=== PATIENT | female | born 1950 | race Two or more races ===

== ENCOUNTER 2016-08-12 23:36 | Inpatient (IN) | payer MEDICARE, BC ==
[~2016-08-12] VITALS: Ht 162.6 cm; Wt 114.6 kg
[~2016-08-12 23:36] MED LIST: /ESOM40CA; /LORA10TA PO; ADVAIR; ADVAIR INH; ALBU17IN INH; AMRI15CA PO; AMRIX OR; ASPI1TAB PO; BUDEPRION; BUPR15TA; BUTRANS TD; CELE20TA PO; CLAR1TAB2 PO; CLARITAN D OR; CLARITIN D; COLA100C2 PO; DARV100T; DARV100T OR; DULO20CA OR; DUONSOL IN; FLEXERIL; FLEXERIL OR; FLEXERIL PO; KLON2TAB; KLON2TAB OR; KLON2TAB PO; LASI20TA PO; LIDO5DIS EX; MAXZ75TA2; MAXZ75TA2 OR; METF1000 PO; NEUR100C PO; NEUR300C; NITR4TASL SL; OXYC15TA66 PO; OXYC30TA4 PO; OXYC5TAB2 PO; PRED50TA PO; PRIL20CA PO; PRO AIR; PRO AIR INH; REST0.05 OU; SALINE NASAL SPRAY; TOPI25TA2; TRAM50TA2; TRILIPIX; TRILIPIX OR; VICO5TAB PO; VITAMIN D50000 UNT; ZANTTAB9 PO; [UNRECOGNIZED DRUG - CODE] PO; [UNRECOGNIZED DRUG - CODE] PO; [UNRECOGNIZED DRUG - OTHER]; [UNRECOGNIZED DRUG - OTHER]; [UNRECOGNIZED DRUG - OTHER] OR; [UNRECOGNIZED DRUG - OTHER] OR; [UNRECOGNIZED DRUG - OTHER] OU; [UNRECOGNIZED DRUG - OTHER] OU; [UNRECOGNIZED DRUG - OTHER] PO
[2016-08-13] MEDS ORDERED: IPRATROPIUM 0.5MG/ALBUTEROL 2.5MG INH SOL UD 3ML (DUONEB)(J7620) As Ordered ONE (00:02)
[2016-08-13 00:19] LABS: ABG BASE EXCESS -0.3 (-2.0-2.0); ABG DEVICE NASAL CANN; ABG HCO3 24.7 MEQ/L (22.0-26.0); ABG PARTIAL PRESSURE CO2 41.4 mmHg (35.0-45.0); ABG PARTIAL PRESSURE O2 76.3 mmHg (75.0-100.0); ABG STANDARD HCO3 24.2 MEQ/L (22.0-26.0); ABG TOTAL CO2 25.9 MEQ/L (23.0-31.0); ABG pH (ARTERIAL) 7.393 UNITS (7.350-7.450)
[2016-08-13 00:23] LABS: BASO # 0.1 K/mm3 (0.0-0.2); BASO % 0.6 % (0.0-1.0); EOS # 0.2 K/mm3 (0.0-0.50); EOS % 2.5 % (0.0-3.0); LARGE UNSTAINED CELL # 0.2 K/mm3 (0.0-0.4); LARGE UNSTAINED CELL % 2.2 % (0.0-4.0); LYMPH # 2.3 K/mm3 (1.5-4.5); LYMPH % 21.4 % (24.0-44.0); MEAN CORPUSCULAR HEMOGLOBIN 27.8 pg (27.0-33.0); MEAN CORPUSCULAR HGB CONC 32.3 g/dl (32.0-36.5); MEAN CORPUSCULAR VOLUME 86.2 fl (80.0-96.0); MONO # 0.5 K/mm3 (0.0-0.8); MONO % 5.2 % (0.0-5.0); NEUTROPHILS # 6.7 K/mm3 (1.8-7.7); NEUTROPHILS % 68.1 % (36.0-66.0); PLATELET COUNT, AUTOMATED 270 k/mm3 (150-450); RED CELL DISTRIBUTION WIDTH 15.1 % (11.5-14.5); WHITE BLOOD COUNT 9.9 K/mm3 (4.0-10.0)
[2016-08-13] MEDS ORDERED: methylPREDNISolone INJ 125 MG/2 ML VIAL (J2930) As Ordered ONE (00:30)
[2016-08-13 00:54] LABS: CALCIUM LEVEL 8.7 MG/DL (8.8-10.2); CREATININE FOR GFR 1.01 MG/DL (0.55-1.02); GLOMERULAR FILTRATION RATE 58.9 (>45); POTASSIUM SERUM 4.7 MEQ/L (3.5-5.1)
--- NOTE | 2016-08-13 01:07 | REP ---
Clinical: Shortness of breath. Comparison: 03/09/2016. Findings: Portable technique and underpenetration accentuate the pulmonary vasculature and interstitium. Chronic interstitial changes are appreciated and superimposed pulmonary vascular congestion with interstitial edema cannot be excluded. Stable cardiomegaly. Trace left basilar atelectasis cannot be excluded. No pneumothorax. No obvious effusion. Skeletal structures intact. Impression: Cardiomegaly and chronic changes. Cannot exclude superimposed pulmonary venous congestion and interstitial edema as well as left lower lobe atelectasis. Signed by Juan Carlos Mcfarland MD 08/13/2016 12:59 A
[2016-08-13] MEDS ORDERED: ACETAMINOPHEN TAB 650MG DOSE (2X325MG) PO PRN (03:00)
[2016-08-13] MEDS ORDERED: ALBUTEROL SULFATE 2.5 MG/0.5 ML INH NEB SOLN NEB PRN (03:15)
[2016-08-13] MEDS ORDERED: GLUCOSE 4 GM CHEW TABLET PO PRN (03:15)
[2016-08-13] MEDS ORDERED: DEXTROSE 50% 50 ML SYRINGE IV PRN (03:15)
[2016-08-13] MEDS ORDERED: GLUCAGON FOR INJ 1 MG VIAL (J1610) SC PRN (03:15)
[2016-08-13] MEDS ORDERED: HYDR-4274 PO (03:23)
[2016-08-13] MEDS ORDERED: BREO1INH3 INH (03:23)
[2016-08-13] MEDS ORDERED: DILA8TAB4 PO (03:23)
[2016-08-13] MEDS ORDERED: CYMB60CA3 PO (03:23)
[2016-08-13] MEDS ORDERED: IPRASOL4 IN (03:23)
[2016-08-13] MEDS ORDERED: LEVO25TA5 PO (03:23)
[2016-08-13] MEDS ORDERED: AMRI15CA10 PO (03:23)
[2016-08-13] MEDS ORDERED: hydrOXYzine 50 MG TAB PO PRN (03:30)
[2016-08-13] MEDS ORDERED: HYDROmorphone (DILAUDID) 4 MG TAB PO PRN (03:30)
--- NOTE | 2016-08-13 03:46 | EDDOCDS ---
Physician Documentation [facility] Name: Bessy Miller Age: 65 yrs Sex: Female : 1950 Arrival Date: 08/12/2016 Time: 23:36 Bed 11 Private MD: NO PRIMARY PHYSICIAN, . Disposition: 08/13 02:37 Critical Care:. pc Disposition: 08/13/16 02:38 Hospitalization ordered by Chante Maldonado for Inpatient Admission. Preliminary diagnosis are Hypoxemia, Chronic obstructive pulmonary disease with (acute) exacerbation. - Bed requested for 4 [place]. - Status is Inpatient Admission. mgs - Condition is Stable. - Problem is new. - Symptoms have improved. HPI: 00:19 This 65 yrs old Other Female presents to ER via Walkin/Carried/Asstd with complaints of pc Breathing Difficulty. 00:20 The history is obtained from the patient, the patient's family/friend. The patient pc presents with shortness of breath, with a prior history of COPD. The symptoms began gradually 10 days ago, and became worse yesterday. The symptoms are continuous, and are steadily getting worse. There were no precipitating events that led to the current complaints. The patient has shortness of breath at rest. At their worst, the symptoms were moderate. In the emergency department, the symptoms are unchanged. The patient's shortness of breath is aggravated by coughing, is alleviated by nothing. The patient's dyspnea was accompanied with cough, non-productive. The patient has experienced similar episodes in the past, chronically. The patient has not recently seen a physician. Historical: - Allergies: NSAIDS; Vladees-Jcp-Sbq Reductase Inhibitors; metals; - Home Meds: 1. albuterol sulfate 2.5 mg /3 mL (0.083 %) Inhl nebu 4 times per day 2. Dilaudid 8 mg Oral tab 2-3 times a day 3. inhaler daily 4. OxyContin 30 mg Oral Tb12 1 tab every 12 hours 5. Proventil Inhl twice a day 6. metformin 1,000 mg Oral tab 1 tab 2 times per day 7. levothyroxine 25 mcg Oral tab 1 tab once daily 8. Cymbalta 60 mg Oral cpDR 1 cap once daily 9. amirx 15 mg daily - PMHx: Asthma; COPD; Diabetes - NIDDM: controlled; Hypothyroidism; total knee with revision; - The history from nurses notes was reviewed: and I agree with what is documented. - Social history: Smoking status: Patient states former smoker of tobacco. Race: White, Ethnicity: Not or Preferred Language: Spanish. - : The pt / caregiver states he / she is not on anticoagulants. Home medication list is obtained from the patient, family members. - Hospitalizations: : No recent hospitalization is reported. - Exposure Risk Screening:: None identified. - Immunization history:: All immunizations up-to-date. - Family history: Not pertinent. - Social history:: the patient is a former smoker, the patient does not drink alcohol. ROS: 00:20 All systems are negative except as listed. The gastrointestinal and genitourinary pc components are also addressed in the HPI. Exam: 00:20 General Appearance: alert, the patient is in mild distress. pc 00:20 EENT: normal eye inspection, ears, nose and throat normal, pharynx normal, mucous membranes moist 00:20 Neck: normal inspection. 00:20 Respiratory: no pleuritic chest pain, speaks in full sentences, the patient is in mild respiratory distress, auscultation reveals wheezes, diffusely, decreased air entry noted throughout RR 26, PO 88% on RA. 00:20 Cardiovascular: normal rhythm, no jugular venous distension appreciated, no murmurs, no gallop, the heart rate is tachycardic, at 105 bpm. 00:20 Abdomen: non-tender, non-distended, no organomegaly. 00:20 Skin: normal color, warm, dry. 00:20 Extremities: non-tender, normal range of motion of all joints. 00:20 Neuro: alert, oriented to person, place and time, cranial nerves normal as tested, no motor deficits, no sensory deficits. 00:20 Psych: normal mood. 02:30 Respiratory: no respiratory distress, auscultation reveals wheezes, diffusely, PO 91% pc on 2L. Vital Signs: 08/12 23:38 BP 185 / 87; Pulse 116; Resp 18 S; Temp 97.3(T); Pulse Ox 90% on R/A; Weight 108.86 kg gr2 / 240 lbs (R); Height 5 ft. 3 in. (160.02 cm) (R); Pain 3/10; 23:45 BP 163 / 75 (auto/); mgs 23:46 Pulse 112 MON; Pulse Ox 88% ; mgs 23:53 BP 163 / 75; Pulse 114; Resp 38; Temp 98.2; Pulse Ox 88% on R/A; cf2 23:59 BP 147 / 77 (auto/); mgs 23:59 Pulse 104 MON; Pulse Ox 87% ; mgs 01 00:14 BP 151 / 77 (auto/); mgs 00:14 Pulse 100 MON; Pulse Ox 93% ; mgs 00:29 BP 122 / 69 (auto/); mgs 00:29 Pulse 100 MON; Pulse Ox 97% ; mgs 01:18 BP 135 / 75 (auto/); mgs 01:18 Pulse 102 MON; Pulse Ox 92% ; mgs 01:29 BP 121 / 67 (auto/); mgs 01:29 Pulse 104 MON; Pulse Ox 90% ; mgs 01:44 BP 123 / 64 (auto/); mgs 01:44 Pulse 102 MON; Pulse Ox 91% ; mgs 01:59 BP 125 / 65 (auto/); mgs 01:59 Pulse 102 MON; Pulse Ox 91% ; mgs 02:14 BP 137 / 63 (auto/); mgs 02:14 Pulse 102 MON; Pulse Ox 92% ; mgs 02:29 BP 132 / 69 (auto/); mgs 02:29 Pulse 100 MON; Pulse Ox 92% ; mgs 02:44 BP 124 / 67 (auto/); mgs 02:44 Pulse 98 MON; Pulse Ox 89% ; mgs 02:58 Pulse 100 MON; Pulse Ox 91% ; mgs 02:59 BP 128 / 73 (auto/); mgs 03:23 BP 130 / 64; Pulse 100; Resp 22; Temp 97.9(O); Pulse Ox 91% on 4 lpm NC; mgs 08/12 23:38 Body Mass Index 42.51 (108.86 kg, 160.02 cm) gr2 MDM: 08/12 23:55 Albuterol-Ipratropium 1 neb Nebulizer every 20 minutes x3 ordered. cf2 23:58 Call Respiratory ordered. pc 23:58 -Blood Culture (Adults Only), peripheral from different site, or from device/port/PICC pc etc. if present ordered. 23:58 Supervisor Microfilm Duplicating Unit/Pulse Ox/q 15 min VS ordered. pc 23:58 IV Saline Lock ordered. pc 23:58 Oxygen at 4L/Min NC or Home dosage ordered. pc 23:58 Rhythm Strip to chart ordered. pc 23:59 -Arterial Blood Gas Ordered. EDMS 23:59 Basic Metabolic Profile Ordered. EDMS 23:59 CBC with Diff Ordered. EDMS 23:59 -Blood Culture Ordered. EDMS 23:59 Chest, 1 View Ordered. EDMS 23:59 Call Respiratory complete. cf2 23:59 ECG WITH READING ER PHYS+CARDIAG ordered. EDMS 01/04 00:17 -Blood Culture (Adults Only), peripheral from different site, or from device/port/PICC ml3 etc. if present complete. 00:18 BLOOD CULTURES Ordered. EDMS 00:20 Differential diagnosis: Chronic Obstructive Pulmonary Disease pneumonia. Plan: labs, pc CXR, EKG, nebs. 00:23 Solu-MEDROL 125 mg IVP once ordered. pc 00:23 -Arterial Blood Gas Reviewed. pc 00:24 Obtain sample by nasopharyngeal swab ordered. pc 00:25 -Influenza A&B Rapid Antigen - Nose Ordered. EDMS 00:34 Test interpretation: EKG. pc 02:01 Basic Metabolic Profile Reviewed. pc 02:01 CBC with Diff Reviewed. pc 02:01 -Influenza A&B Rapid Antigen - Nose Reviewed. pc 02:01 Chest, 1 View Reviewed. pc 02:32 Antibiotic administration: Not indicated, the patient does not have an appreciated pc infiltrate. Data reviewed: old medical records, vital signs, nurses notes, EKG(s), lab test results, all radiology studies and available results. Test interpretation: LAB - all labs as ordered have been reviewed, interpreted and considered in the overall management of the clinical presentation; Arterial blood gas is normal. X-RAY - interpreted by me, 1 view chest chronic changes, ?interstitial edema v fibrosis. The patient has been re-examined and re-evaluated. The patient's symptoms have mildly improved after treatment, but she remains hypoxic off oxygen. 02:37 Physician consultation: Dr. Chante Maldonado was contacted at 02:37, regarding admission, and pc will see patient in ED. Disposition: The historical points, examination findings, and any diagnostic results supporting the provided diagnosis, were discussed with the patient or legal guardian. The need for further work-up and/or treatment in the hospital was explained. 02:55 BASIC METABOLIC PROFILE Ordered. EDMS 02:56 Admission / Observation Status ordered. EDMS 02:56 CONSISTENT CARBOHYDRATES ordered. EDMS 02:59 SPUTUM CULTURE AND GRAM STAIN Ordered. EDMS 02:59 PHYSICAL THERAPY EVAL & TREAT ordered. EDMS 03:03 HEMOGLOBIN A1C Ordered. EDMS 03:05 THYROID STIMULATING HORMONE Ordered. EDMS 03:21 [facility] Payment Agreement was scanned into [employer] and attached to record. 5 03:21 Financial registration complete. jp5 EC:34 Rate is 100 beats/min. Rhythm is regular, Normal Sinus Rhythm. QRS [place] is Normal. NC pc interval is normal. QRS interval is normal. QT interval is normal. No Q waves. T waves are Normal. No ST changes noted. Clinical impression: Normal Sinus Rhythm. Administered Medications: 00:08 Drug: Albuterol-Ipratropium 1 neb [ipratropium-albuterol 0.5 mg-3 mg(2.5 mg base)/3 mL jc3 nebulization soln (1 neb)] Route: Nebulizer; 00:15 Drug: Albuterol-Ipratropium 1 neb [ipratropium-albuterol 0.5 mg-3 mg(2.5 mg base)/3 mL jc3 nebulization soln (1 neb)] Route: Nebulizer; 00:34 Drug: Albuterol-Ipratropium 1 neb [ipratropium-albuterol 0.5 mg-3 mg(2.5 mg base)/3 mL jc3 nebulization soln (1 neb)] Route: Nebulizer; 01:19 Drug: Solu-MEDROL 125 mg [Solu-Medrol 500 mg intravenous solution (125 mg)] Route: IVP; mgs Site: right wrist; Critical Care Time: 02:37 Critical care time: Bedside Care: 25 minutes, Consultation: 10 minutes, Family pc Intervention: 10 minutes. Total time: 45 minutes Signatures: Dispatcher [employer] [facility] Dominguez Patton MD MD pc Lopresti, Mary-Elizabeth, Sewing Supervisor Unit ml3 Genaro Nunez RN RN mgs Denise Solares jp5 Shellie Muñoz RN RN 2 Jewel Alatorre 3 The chart was reviewed and I authenticate all verbal orders and agree with the evaluation and treatment provided.Attachments: 03:21 [facility] Payment Agreement [email or web address] [facility]
--- NOTE | 2016-08-13 03:46 | EDDOCDS ---
Nurse's Notes [facility] Name: Bessy Miller Age: 65 yrs Sex: Female : 1950 Arrival Date: 08/12/2016 Time: 23:36 Bed 11 Private MD: NO PRIMARY PHYSICIAN, . Diagnosis: Hypoxemia;Chronic obstructive pulmonary disease with (acute) exacerbation Presentation: 08/12 23:45 Red Flag criteria, patient assessed and taken directly to a bed. Pt taken directly to 1 11 in Main ED. charge Nurse aware, Shellie Rothman at bedside with pt. 23:49 Presenting complaint: Patient states: "shortness of breath and wheezing getting worse cf2 over the past week". Patient with audible wheezing and tripoding. Adult Sepsis Screening: The patient does not have new or worsening altered mentation. Patient has a respiratory rate of greater than or equal to 22 (1 point). Systolic blood pressure is greater than 100. Patient has a qSOFA score of 1- Negative Sepsis Screen. Suicide/Homicide risk assessment- the patient denies having any suicidal and/or homicidal ideations and does not present with any other emotional, behavioral or mental health complaints. 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 Transition of care: patient was not received from another setting of care. Care prior to arrival: Medications administered prior to arrival: Duoneb every 4 hours. 23:49 Acuity: SAVANNAH Level 2 cf2 23:49 Method Of Arrival: Walkin/Carried/Asstd cf2 Triage Assessment: 23:53 General: Appears distressed, uncomfortable, Behavior is anxious, restless. Pain: Denies cf2 pain. 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 Pt Declines HIV testing. The patient is triaged at the bedside. See Assessment in Nurses Notes section of ED record. Neurological: No deficits noted. EENT: No deficits noted. Cardiovascular: No deficits noted. Respiratory: Onset: The symptoms/episode began/occurred gradually, Airway is patent Respiratory effort is labored, with nasal flaring, pursed lip, Respiratory pattern is tachypnea Breath sounds with wheezes inspiratory expiratory bilaterally. Reports shortness of breath cough that is the patient has moderate shortness of breath. GI: No deficits noted. : No deficits noted. Derm: No deficits noted. Musculoskeletal: No deficits noted. Injury Description: No known injury. Historical: - Allergies: NSAIDS; Vufqgkp-Xhz-Wlm Reductase Inhibitors; metals; - Home Meds: 1. albuterol sulfate 2.5 mg /3 mL (0.083 %) Inhl nebu 4 times per day 2. Dilaudid 8 mg Oral tab 2-3 times a day 3. inhaler daily 4. OxyContin 30 mg Oral Tb12 1 tab every 12 hours 5. Proventil Inhl twice a day 6. metformin 1,000 mg Oral tab 1 tab 2 times per day 7. levothyroxine 25 mcg Oral tab 1 tab once daily 8. Cymbalta 60 mg Oral cpDR 1 cap once daily 9. amirx 15 mg daily - PMHx: Asthma; COPD; Diabetes - NIDDM: controlled; Hypothyroidism; total knee with revision; - The history from nurses notes was reviewed: and I agree with what is documented. - Social history: Smoking status: Patient states former smoker of tobacco. Race: White, Ethnicity: Not or Preferred Language: [place] Konger. - : The pt / caregiver states he / she is not on anticoagulants. Home medication list is obtained from the patient, family members. - Hospitalizations: : No recent hospitalization is reported. - Exposure Risk Screening:: None identified. - Immunization history:: All immunizations up-to-date. - Family history: Not pertinent. - Social history:: the patient is a former smoker, the patient does not drink alcohol. Screenin/04 00:03 Screening information is obtained from the patient. Fall risk: At risk due to prior mgs history of falls. Assistance ADL's: requires no assistance with activities of daily living. Abuse/DV Screen: The patient / caregiver reports he/she is: not in a situation that causes fear, pain or injury. Nutritional screening: No deficits noted. Advance Directives: Currently, there is no health care proxy. There is no active DNR order. home support is adequate. Assessment: 08/12 23:57 Adult Sepsis Screening: The patient does not have new or worsening altered mentation. mgs Patient has a respiratory rate of greater than or equal to 22 (1 point). Systolic blood pressure is greater than 100. Patient has a qSOFA score of 1- Negative Sepsis Screen. General: Appears in no apparent distress, Behavior is appropriate for age, cooperative. Pain: Denies pain. Neurological: Level of Consciousness is awake, alert, Oriented to person, place, time. Cardiovascular: Capillary refill < 3 seconds Heart tones S1 S2 present Pulses are 2+ in right radial artery and left radial artery. Respiratory: Airway is patent Respiratory effort is even, unlabored, Respiratory pattern is regular, symmetrical, Breath sounds are diminished bilaterally. Breath sounds with wheezes expiratory bilaterally. Derm: Skin is pink, warm & dry. 08/13 01:22 General: Appears in no apparent distress, Behavior is appropriate for age, cooperative. mgs Pain: Denies pain. Neurological: Level of Consciousness is awake, alert, Oriented to person, place, time. Cardiovascular: Capillary refill < 3 seconds Heart tones S1 S2 present Pulses are 2+ in right radial artery and left radial artery. Respiratory: Airway is patent Respiratory effort is even, unlabored, Respiratory pattern is regular, symmetrical. 02:16 Adult Sepsis Screening: The patient does not have new or worsening altered mentation. mgs Patient has a respiratory rate of greater than or equal to 22 (1 point). Systolic blood pressure is greater than 100. Patient has a qSOFA score of 1- Negative Sepsis Screen. General: Appears in no apparent distress, Behavior is appropriate for age, cooperative. Pain: Denies pain. Neurological: Level of Consciousness is awake, alert, Oriented to person, place, time. Cardiovascular: Capillary refill < 3 seconds Heart tones S1 S2 present Pulses are 2+ in right radial artery and left radial artery Rhythm is sinus tachycardia No ectopy. Respiratory: Airway is patent Respiratory effort is even, unlabored, Respiratory pattern is regular, symmetrical. Derm: Skin is pink, warm & dry. 02:59 Adult Sepsis Screening: The patient does not have new or worsening altered mentation. mgs Patient has a respiratory rate of greater than or equal to 22 (1 point). Systolic blood pressure is greater than 100. Patient has a qSOFA score of 1- Negative Sepsis Screen. General: Appears in no apparent distress, Behavior is appropriate for age, cooperative. Pain: Denies pain. Neurological: Level of Consciousness is awake, alert, Oriented to person, place, time. Cardiovascular: Capillary refill < 3 seconds. Respiratory: Airway is patent Respiratory effort is even, unlabored, Respiratory pattern is regular, symmetrical. Derm: Skin is pink, warm & dry. 03:23 General: Appears in no apparent distress, Behavior is appropriate for age, cooperative. mgs Pain: Denies pain. Neurological: Level of Consciousness is awake, alert, Oriented to person, place, time. Cardiovascular: Capillary refill < 3 seconds. Respiratory: Airway is patent Respiratory effort is even, unlabored, Respiratory pattern is regular, symmetrical. Derm: Skin is intact, Skin is pink, warm & dry. 03:43 General: Appears in no apparent distress, Behavior is appropriate for age, cooperative. mgs Pain: Denies pain. Neurological: Level of Consciousness is awake, alert, Oriented to person, place, time. Cardiovascular: Capillary refill < 3 seconds. Respiratory: Airway is patent Respiratory effort is even, unlabored, Respiratory pattern is regular, symmetrical. Derm: Skin is pink, warm & dry. Vital Signs: 08/12 23:38 BP 185 / 87; Pulse 116; Resp 18 S; Temp 97.3(T); Pulse Ox 90% on R/A; Weight 108.86 kg gr2 (R); Height 5 ft. 3 in. (160.02 cm) (R); Pain 10/17; 23:45 BP 163 / 75 (auto/); mgs 23:46 Pulse 112 MON; Pulse Ox 88% ; mgs 23:53 BP 163 / 75; Pulse 114; Resp 38; Temp 98.2; Pulse Ox 88% on R/A; cf2 23:59 BP 147 / 77 (auto/); mgs 23:59 Pulse 104 MON; Pulse Ox 87% ; mgs / 00:14 BP 151 / 77 (auto/); mgs 00:14 Pulse 100 MON; Pulse Ox 93% ; mgs 00:29 BP 122 / 69 (auto/); mgs 00:29 Pulse 100 MON; Pulse Ox 97% ; mgs 01:18 BP 135 / 75 (auto/); mgs 01:18 Pulse 102 MON; Pulse Ox 92% ; mgs 01:29 BP 121 / 67 (auto/); mgs 01:29 Pulse 104 MON; Pulse Ox 90% ; mgs 01:44 BP 123 / 64 (auto/); mgs 01:44 Pulse 102 MON; Pulse Ox 91% ; mgs 01:59 BP 125 / 65 (auto/); mgs 01:59 Pulse 102 MON; Pulse Ox 91% ; mgs 02:14 BP 137 / 63 (auto/); mgs 02:14 Pulse 102 MON; Pulse Ox 92% ; mgs 02:29 BP 132 / 69 (auto/); mgs 02:29 Pulse 100 MON; Pulse Ox 92% ; mgs 02:44 BP 124 / 67 (auto/); mgs 02:44 Pulse 98 MON; Pulse Ox 89% ; mgs 02:58 Pulse 100 MON; Pulse Ox 91% ; mgs 02:59 BP 128 / 73 (auto/); mgs 03:23 BP 130 / 64; Pulse 100; Resp 22; Temp 97.9(O); Pulse Ox 91% on 4 lpm NC; mgs 08/12 23:38 Body Mass Index 42.51 (108.86 kg, 160.02 cm) gr2 Vitals: 08/12 23:38 Log In Time: August 12, 2016 at 23:38. RN notified that patient meets Red Flag gr2 criteria. ED Course: 23:37 Patient visited by Susan Maddox. gr2 23:37 NO PRIMARY PHYSICIAN, . is Private Physician. gr2 23:37 Patient moved to Waiting gr2 23:39 Patient visited by Susan Maddox. gr2 23:39 Patient moved to Pre RCE gr2 23:44 Ashley Cobb,RN is Primary Nurse. ml3 23:44 Patient moved to 11 ml3 23:49 Primary Nurse role handed off by Ashley Cobb,SAMMI cf2 23:49 Shellie Muñoz,RN is Primary Nurse. cf2 23:49 Patient visited by Shellie Muñoz,SAMMI. cf2 23:51 Triage Initiated cf2 23:57 Dominguez Patton MD is Attending Physician. pc 08/13 00:01 Patient visited by Dominguez Patton MD. pc 00:15 -Arterial Blood Gas Sent. jc3 00:16 -Blood Culture Sent. mgs 00:16 Basic Metabolic Profile Sent. mgs 00:16 CBC with Diff Sent. mgs 00:20 Missed attempts: 20 gauge X 1 in left antecubital area. mgs 00:20 Missed attempts: 20 gauge in right forearm. mgs 00:21 Patient visited by Genaro Nunez RN. mgs 00:22 EKG done. (by ED staff). Reviewed by Dominguez Patton MD. jp4 00:24 Patient visited by Hammad Hsu. jp4 01:23 Patient visited by Genaro Nunez,SAMMI. mgs 01:24 Chest, 1 View Returned. EDMS 02:17 Patient visited by Genaro Nunez,SAMMI. mgs 02:38 Sophiequan Chante is Hospitalizing Provider. pc 03:00 Patient visited by Genaro Nunez,RN. mgs 03:21 [facility] Payment Agreement was scanned into [employer] and attached to record. jp5 03:22 Inserted saline lock: 20 gauge in right hand. mgs 03:44 The patient / caregiver is instructed regarding the plan of care and ED course. mgs 03:44 No procedures done that require assistance. mgs Administered Medications: 00:08 Drug: Albuterol-Ipratropium 1 neb [ipratropium-albuterol 0.5 mg-3 mg(2.5 mg base)/3 mL jc3 nebulization soln (1 neb)] Route: Nebulizer; 00:15 Drug: Albuterol-Ipratropium 1 neb [ipratropium-albuterol 0.5 mg-3 mg(2.5 mg base)/3 mL jc3 nebulization soln (1 neb)] Route: Nebulizer; 00:34 Drug: Albuterol-Ipratropium 1 neb [ipratropium-albuterol 0.5 mg-3 mg(2.5 mg base)/3 mL jc3 nebulization soln (1 neb)] Route: Nebulizer; 01:19 Drug: Solu-MEDROL 125 mg [Solu-Medrol 500 mg intravenous solution (125 mg)] Route: IVP; mgs Site: right wrist; RT: 00:15 ABG's drawn from right radial artery pressure held for 5 minutes no bleeding noted jc3 pressure bandage applied specimen sent pt. tolerated well. Initial Med Neb Given as ordered Patient tolerated procedure well without adverse effect. O2 via nasal cannula \\T\\ 2L/min. Respiratory: Breath sounds are coarse bilaterally. Breath sounds are diminished bilaterally. Breath sounds with wheezes bilaterally. at expiration. 00:25 Subsequent Med Neb Given as ordered. Respiratory: Breath sounds are coarse Breath jc3 sounds are diminished bilaterally. Breath sounds with wheezes bilaterally. at expiration. 00:34 Subsequent Med Neb Given as ordered. Respiratory: Breath sounds are diminished jc3 bilaterally. Breath sounds with wheezes bilaterally. at expiration. Order Results: Lab Order: -Arterial Blood Gas; SPEC'M 08/13/16 00:07 Test: ABG pH (ARTERIAL); Value: 7.393; Range: 7.350-7.450; Units: UNITS; Status: F Test: ABG PARTIAL PRESSURE CO2; Value: 41.4; Range: 35.0-45.0; Units: mmHg; Status: F Test: ABG PARTIAL PRESSURE O2; Value: 76.3; Range: 75.0-100.0; Units: mmHg; Status: F Test: ABG TOTAL CO2; Value: 25.9; Range: 23.0-31.0; Units: MEQ/L; Status: F Test: ABG HCO3; Value: 24.7; Range: 22.0-26.0; Units: MEQ/L; Status: F Test: ABG BASE EXCESS; Value: -0.3; Range: -2.0-2.0; Status: F Test: ABG STANDARD HCO3; Value: 24.2; Range: 22.0-26.0; Units: MEQ/L; Status: F Test: ABG O2 SATURATION; Value: 95.7; Range: 95.0-99.0; Units: %; Status: F Test: ABG DEVICE; Value: NASAL MAVIS; Status: F Lab Order: Basic Metabolic Profile; SPEC'M 08/13/16 00:13 Test: GLUCOSE, FASTING; Value: 150; Range: 80-110; Abnormal: Above high normal; Units: MG/DL; Status: F Test: BLOOD UREA NITROGEN; Value: 12; Range: 7-18; Units: MG/DL; Status: F Test: CREATININE FOR GFR; Value: 1.01; Range: 0.55-1.02; Units: MG/DL; Status: F Test: GLOMERULAR FILTRATION RATE; Value: 58.9; Range: >45; Status: F Test: SODIUM LEVEL; Value: 138; Range: 136-145; Units: MEQ/L; Status: F Test: POTASSIUM SERUM; Value: 4.7; Range: 3.5-5.1; Units: MEQ/L; Status: F Test: CHLORIDE LEVEL; Value: 102; Range: 98-107; Units: MEQ/L; Status: F Test: CARBON DIOXIDE LEVEL; Value: 27; Range: 21-32; Units: MEQ/L; Status: F Test: ANION GAP; Value: 9; Range: 8-16; Units: MEQ/L; Status: F Test: CALCIUM LEVEL; Value: 8.7; Range: 8.8-10.2; Abnormal: Below low normal; Units: MG/DL; Status: F Test Note: ; Units are mL/min/1.73 m2 Chronic Kidney Disease Staging per NKF: Stage I & II GFR >=60 Normal to Mildly Decreased Stage III GFR 30-59 Moderately Decreased Stage IV GFR 15-29 Severely Decreased Stage V GFR <15 Very Little GFR Left ESRD GFR <15 on WAGE ADJUSTER Lab Order: CBC with Diff; SPEC'M 08/13/16 00:13 Test: WHITE BLOOD COUNT; Value: 9.9; Range: 4.0-10.0; Units: K/mm3; Status: F Test: RED BLOOD COUNT; Value: 4.46; Range: 4.00-5.40; Units: M/mm3; Status: F Test: HEMOGLOBIN; Value: 12.4; Range: 12.0-16.0; Units: g/dl; Status: F Test: HEMATOCRIT; Value: 38.4; Range: 36.0-47.0; Units: %; Status: F Test: MEAN CORPUSCULAR VOLUME; Value: 86.2; Range: 80.0-96.0; Units: fl; Status: F Test: MEAN CORPUSCULAR HEMOGLOBIN; Value: 27.8; Range: 27.0-33.0; Units: pg; Status: F Test: MEAN CORPUSCULAR HGB CONC; Value: 32.3; Range: 32.0-36.5; Units: g/dl; Status: F Test: RED CELL DISTRIBUTION WIDTH; Value: 15.1; Range: 11.5-14.5; Abnormal: Above high normal; Units: %; Status: F Test: PLATELET COUNT, AUTOMATED; Value: 270; Range: 150-450; Units: k/mm3; Status: F Test: NEUTROPHILS %; Value: 68.1; Range: 36.0-66.0; Abnormal: Above high normal; Units: %; Status: F Test: LYMPH %; Value: 21.4; Range: 24.0-44.0; Abnormal: Below low normal; Units: %; Status: F Test: MONO %; Value: 5.2; Range: 0.0-5.0; Abnormal: Above high normal; Units: %; Status: F Test: EOS %; Value: 2.5; Range: 0.0-3.0; Units: %; Status: F Test: BASO %; Value: 0.6; Range: 0.0-1.0; Units: %; Status: F Test: LARGE UNSTAINED CELL %; Value: 2.2; Range: 0.0-4.0; Units: %; Status: F Test: NEUTROPHILS #; Value: 6.7; Range: 1.8-7.7; Units: K/mm3; Status: F Test: LYMPH #; Value: 2.3; Range: 1.5-4.5; Units: K/mm3; Status: F Test: MONO #; Value: 0.5; Range: 0.0-0.8; Units: K/mm3; Status: F Test: EOS #; Value: 0.2; Range: 0.0-0.50; Units: K/mm3; Status: F Test: BASO #; Value: 0.1; Range: 0.0-0.2; Units: K/mm3; Status: F Test: LARGE UNSTAINED CELL #; Value: 0.2; Range: 0.0-0.4; Units: K/mm3; Status: F Lab Order: -Influenza A&B Rapid Antigen - Nose; SPEC'M 08/13/16 00:47 Test: INFLUENZA A RAPID SCR by ICA; Value: INFLUENZA A RESULTS NEGATIVE; Status: F Test: INFLUENZA A RAPID SCR by ICA; Value: Comments:; Status: F Test: INFLUENZA B RAPID SCR by ICA; Value: INFLUENZA B RESULTS NEGATIVE; Status: F Test Note: ; The Influenza test is a direct rapid immunoassay for the qualitative detection of Influenza viral antigen. Cell culture (Viral Culture) testing should be considered to confirm NEGATIVE results and to assist in detecting other viruses that can provide similar clinical symptoms. Please contact the lab within 24 hours ([phone]) if confirmatory testing is desired. Radiology Order: Chest, 1 View Test: Chest, 1 View REASON FOR EXAMINATION: Shortness of Breath; Clinical: Shortness of breath.; ; Comparison: 03/09/2016.; ; Findings:; Portable technique and underpenetration accentuate the pulmonary vasculature and; interstitium. Chronic interstitial changes are appreciated and superimposed; pulmonary vascular congestion with interstitial edema cannot be excluded. Stable; cardiomegaly. Trace left basilar atelectasis cannot be excluded. No; pneumothorax. No obvious effusion. Skeletal structures intact.; ; Impression:; Cardiomegaly and chronic changes.; Cannot exclude superimposed pulmonary venous congestion and interstitial edema as; well as left lower lobe atelectasis.; ; ; Signed by; Juan Carlos Mcfarland MD 08/13/2016 12:59 A; Outcome: 02:38 Decision to Hospitalize by Provider. pc 03:44 Discharge Assessment: Patient awake, alert and oriented x 3. No cognitive and/or mgs functional deficits noted. Patient verbalized understanding of disposition instructions. patient administered narcotics - no. The following High Risk Discharge criteria are identified: None. Admitted to Med/Surg accompanied by tech, family with patient, via stretcher, with oxygen, with chart. Condition: stable. Property :Personal belongings accompany Pt. 03:45 No special radiology studies were completed. mgs 03:46 Patient left the ED. mgs Signatures: Dispatcher [employer] EDMS Dominguez Patton MD MD Helio Mistry, School Psychometrist Unit ml3 Anne Jensen,RN RN lf1 Jewel Alatorre jc3 Susan Maddox gr2 Hammad Hsu jp4 Genaro Nunez RN RN mgs Denise Solares jp5 Shellie Muñoz,RN RN cf2 Corrections: (The following items were deleted from the chart) 01:23 08/12 23:57 Cardiovascular: Capillary refill is > 3 seconds Heart tones S1 S3 present mgs Pulses are 2+ in right radial artery and left radial artery mgs MTDD
[2016-08-13 04:00] VITALS: BP 110/80
[2016-08-13] MEDS ORDERED: LevoFLOXacin 750 MG in APPROPRIATE DILUENT 1 EA IV SCH (04:00)
[2016-08-13] MEDS: HEPARIN SOD (PORCINE) 5000 UNITS/ML VIAL SC SCH ×3 (05:42→21:45)
[2016-08-13] MEDS: LEVOTHYROXINE 0.025 MG TAB (25 MCG) PO SCH (05:42)
[2016-08-13 06:00] VITALS: BP 110/64
[2016-08-13 06:39] LABS: CALCIUM LEVEL 8.9 MG/DL (8.8-10.2); CREATININE FOR GFR 1.1 MG/DL (0.55-1.02); GLOMERULAR FILTRATION RATE 53.4 (>45); POTASSIUM SERUM 4.5 MEQ/L (3.5-5.1)
--- NOTE | 2016-08-13 07:00 | HPE ---
DATE OF ADMISSION: 08/13/2016 PRIMARY CARE PHYSICIAN: Dr. Sung CHIEF COMPLAINT: Dyspnea exacerbation. HISTORY OF PRESENT ILLNESS: Ms. Miller is a 65-year-old female with multiple past medical history who presented due to experiencing shortness of breath since 07/28/2016. The patient expressed that she has been seen by Dr. Sung due to congestion and patient has been experiencing environmental allergy. The patient denies chills or night sweats; however, patient expressed that she had one episode of fever of 100.4, which was yesterday. The patient denies lightheadedness or dizziness. 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 Therefore, they stopped the Lasix. The patient expressed that she has been having cough which is dry, however, for the past week the cough became more greenish or yellowish color. The patient expressed shortness of breath became increased and her family forced her to come to the emergency room (ER). The patient expressed that she can only ambulate about 17 steps at this moment due to shortness of breath. The patient has pulse oximeter at home. She said her pulse oximeter shows that her oxygen saturation was about 89-90%; however, previously it was 94-95%. ALLERGIES: - NSAIDS - NICKEL - STATINS HOME MEDICATIONS: - Ventolin HFA 2 puffs inhaler as needed shortness of breath - ipratropium bromide 1 solution inhaler four times a day as needed shortness of breath - Klonopin 2 mg by mouth at bedtime - Atarax 30 mg by mouth at bedtime - Cymbalta 60 mg by mouth daily - Breo Ellipta 1 puff inhaler daily - Dilaudid 8 mg by mouth three times a day as needed for pain - hydroxyzine 50 mg by mouth as needed anxiety - Synthroid 25 mcg by mouth daily - metformin 1000 mg by mouth twice a day - oxycodone 30 mg by mouth every 12 hours SOCIAL HISTORY: The patient expressed that she had stopped smoking about five years ago. However, before that, the patient was smoking at age 15 and she smoked about a pack a day. The patient expressed that in 2004 the patient quit drinking alcohol, however, before that the patient was drinking alcohol occasionally. The patient denies illicit drug use at this moment, however, the patient expressed that when she was in her 20s she had experimented with cocaine , LSD and marijuana. The patient lived with her and two children, two daughters. The patient has two cats. FAMILY HISTORY: Patient has two brothers, one of the brothers has congestive heart failure, diabetes and heart problems. The other brother has lung cancer due to smoking. The patient's father due to myocardial infarction (AL). The patient's mother due to atrophy of the brain secondary to alcoholism. REVIEW OF SYSTEMS: GENERAL: Patient denies chills or night sweats, however, patient expressed that she has been having fever. The patient denies weight gain or weight loss. HEENT: Patient denies acute vision or hearing changes. The patient has problems with chewing food, however, patient expressed that she has episode of sinus infection. NECK: The patient denies lumps, bumps or decreased range of motion of her neck. HEART: Patient denies palpitations or skipping heart beat or chest pain. LUNGS: Patient expressed that she has been experiencing shortness of breath and coughing with yellowish or greenish sputum production. The patient also experienced wheezing on inhale and exhale. ABDOMEN: Patient denies abdominal pain, nausea, vomiting, diarrhea, constipation, melena, hematochezia or hematemesis. EXTREMITIES: Patient expressed that she has been experiencing left knee pain; however, this is a chronic issue and she has been having problems since 2004. However, the pain is controlled. The patient denies lower extremity edema. NEUROLOGIC: Patient denies history of transient ischemic attack (TIA), CVA or seizure type activities. PHYSICAL EXAMINATION: VITAL SIGNS: Blood pressure 185/87, pulse 116, respiratory rate 18, temperature 97.3, pulse oximetry 90% on room air. Weight 108.86 kg, height 160.02 cm, body mass index (BMI) 42.51. GENERAL APPEARANCE: The patient was lying in bed in no acute distress. The patient was awake, alert, and oriented to time, place and person. HEENT: Normocephalic, atraumatic. Pupils are equal. Oral mucosa is moist. NECK: Soft, supple. Jugular venous distention (JVD) cannot be appreciated due to morbid obesity. LUNGS: Patient has clear breath sounds bilaterally, good air movement. HEART: Tachycardia. Normal S1, S2. ABDOMEN: Morbidly obese, soft, nontender, positive bowel sounds in all quadrants. EXTREMITIES: No lower extremity edema, +2 pulses in both lower extremitiies. Patient has decreased range of motion in the left lower extremity compared to the right due to knee pain. The patient has normal sensation in both upper and lower extremities. NEUROLOGIC: Cranial nerves II-XII were intact. No focal deficits. LABORATORY DATA: White blood cells 9.9, red blood cells 4.46, hemoglobin 12.4, hematocrit 38.4, MCV 86.2, MCH 27.8, MCHC 32.3, RDW 15.1, platelet count 270, neutrophil percentage 68.1, lymphocyte percentage 24.4, monocyte percentage 5.2, eosinophil percentage 2.5, basophil percentage 0.6, leukocyte percentage 2.2, bicarbonate 24.2. ABG with pH 7.393, pCO2 41.4, pO2 76.3, HCO3 24.7, total CO2 25.9, oxygen saturation 95.7, base excess -0.3, oxygen delivery device nasal cannula. Sodium 138, potassium 4.7, chloride 102, carbon dioxide 27, anion gap 9, BUN 12, creatinine 1.01, glomerular filtration rate 58.9, fasting glucose 150 , calcium 8.7. Blood culture is pending. Influenza is pending. Chest x-ray shows cardiomegaly and chronic changes, cannot exclude superimposed pulmonary versus congestive and interstitial edema as well as left lower lobe atelectasis. ASSESSMENT AND PLAN: 1. Dyspnea exacerbation. This could be multifactorial, possibly chronic obstructive pulmonary disease exacerbation versus pulmonary infection versus allergy exacerbation. Therefore, we have started the patient on breathing treatment as well as Solu-Medrol due to possibility of chronic obstructive pulmonary disease exacerbation. Also due to the possibility of infection we have started the patient on Levaquin 750 mg every 24 hours. Although patient's white blood cells are normal, also we have ordered blood culture as well as sputum culture and gram stain and the results are pending at this time. Also due to the possibility of allergy, we have ordered Zyrtec 10 mg by mouth daily. 2. Chronic obstructive pulmonary disease. The patient is on breathing treatment as well as Solu-Medrol. 3. Asthma. At this time, the patient is stable. The patient is on breathing treatments. 4. Diabetes. At home, patient is on metformin 1000 mg by mouth twice a day. However, we have stopped this medication and we have started the patient on sliding scale. Also we will continue patient on consistent carbohydrate diet. 5. Hypothyroidism. Will continue patient on Synthroid. 6. Sjogren syndrome. This is a chronic issue. At this time, the patient is stable. 7. Left knee pain. This is a chronic issue and patient has been experiencing this pain for a long time. The patient has been followed with orthopedics. At this time, the patient is following with pain management who recommended the patient to continue on oxycodone 30 mg by mouth every 12 hours as well as Dilaudid 8 mg by mouth three times a day as needed pain. 8. Restless leg syndrome. Patient is on clonazepam 2 mg by mouth at bedtime. At this time, the patient is stable. 9. Deep vein thrombosis prophylaxis. The patient is on heparin 5000 units subcutaneous every 8 hours. 10. Anxiety. The patient is on hydroxyzine 50 mg by mouth daily as needed anxiety. My preceptor for this patient encounter was Dr. Maldonado. The preceptor was physically present in the building during the encounter and was fully available. As needed, all aspects of the patient interview, examination, medical decision making process, and medical care plan development were reviewed and approved by the preceptor. The preceptor is aware and concurs with the plan as stated in the body of this note and will attest to such by his/her cosignature. My preceptor for this patient encounter was Dr. Maldonado. The preceptor was physically present in the building during the encounter and was fully available. As needed, all aspects of the patient interview, examination, medical decision making process, and medical care plan development were reviewed and approved by the preceptor. The preceptor is aware and concurs with the plan as stated in the body of this note and will attest to such by his/her cosignature. ELOISA
[2016-08-13] MEDS: HumaLOG INSULIN (NovoLOG) PER UNIT SC SCH ×3 (08:39→17:20)
[2016-08-13] MEDS: DULoxetine 30 MG CAP (CYMBALTA) PO SCH (08:40)
[2016-08-13] MEDS: oxyCODONE 15 MG CR TAB PO SCH ×2 (08:40→21:40)
[2016-08-13] MEDS: CETIRIZINE (ZyrTEC) 10 MG TAB PO SCH (08:40)
[2016-08-13] MEDS: predniSONE 20 MG TAB PO SCH (10:20)
[2016-08-13 11:24] LABS: MEAN CORPUSCULAR HEMOGLOBIN 27.7 pg (27.0-33.0); MEAN CORPUSCULAR VOLUME 86.7 fl (80.0-96.0); RED CELL DISTRIBUTION WIDTH 15.3 % (11.5-14.5); WHITE BLOOD COUNT 11.6 K/mm3 (4.0-10.0)
--- NOTE | 2016-08-13 11:40 | IPN ---
DATE OF SERVICE: 08/13/2016 The time the patient was seen was at 9:30. ATTENDING DOCTOR: Jayne Romero MD The patient was seen and examined at the bedside. No acute event overnight. The patient is breathing better. However, she is still on nasal cannula oxygen. Otherwise, denies any chest pain, trouble breathing, abdominal pains, nausea, vomiting, diarrhea, or constipation. Denies any problem with urination. Denies any other current new complaints. PHYSICAL EXAMINATION: VITAL SIGNS: Temperature 97.4, pulse 96, respiration 20, blood pressure 110/64, oxygen was saturating at 94% on 2 liters of nasal cannula. General: The patient is a morbidly obese female who was alert, awake, oriented times three. Does not appear to be in distress. Resting comfortably in bed with head elevated at 45-degree angle. HEENT: Normocephalic, atraumatic. Extraocular motor intact. Mucosa moist. NECK: Supple. No neck lymphadenopathy. CARDIOVASCULAR: Regular rate and rhythm. S1, S2. No murmurs, rubs, gallops. LUNGS: Clear to auscultation bilaterally. No wheezes, rales, or rhonchi. ABDOMEN: Positive bowel sounds. Soft, nontender, nondistended. No peritoneal signs. No ecchymosis. EXTREMITIES: No edema, clubbing, or cyanosis. SKIN: Warm and dry. NEUROLOGIC: Cranial nerves II-XII intact. CBC was from midnight on 08/13/2016. It shows WBC 9.9, hemoglobin 12.4, hematocrit 38.4, with platelet count of 270. This morning, the patient has a basic metabolic panel with a sodium of 138, potassium 4.5, chloride 102, bicarbonate 26, BUN 13, creatinine 1.1, GFR 63%, and glucose 288, A1c was 7.3. Sputum culture is pending. Blood cultures times two are pending. Influenza is negative. No new imaging. ASSESSMENT AND PLAN: A 65-year-old female with past medical history of not on any oxygen at home, asthma, noninsulin-dependent type 2 diabetes, hypothyroidism , Sjogren syndrome, osteoarthritis with left knee pain, restless legs syndrome, presented with: 1. Shortness of breath secondary to hypoxia and chronic obstructive pulmonary disease (COPD) exacerbation versus pulmonary infection versus allergic exacerbation. The patient was started on Solu-Medrol on admission and placed on Levaquin 750 mg every 24 hours. Today, the patient's lungs sound clear, and the patient denies any shortness of breath. However, she is continued to be on 2 liters of nasal cannula. Will likely discharge the patient tomorrow when the patient is off the oxygen. Otherwise, she stated that she can go today, as well. 2. Chronic obstructive pulmonary disease exacerbation. Continue Levaquin and steroid. The patient's Solu-Medrol has been switched to by mouth prednisone. Will continue to monitor. 3. Asthma. Continue home breathing treatment. 4. Noninsulin-dependent type 2 diabetes. A1c was found to be 7.3. Metformin has been on hold. Will continue on insulin sliding scale and fingersticks and consistent-carbohydrate diet. 5. Hypothyroidism. Continue Synthroid. 6. Sjogren syndrome. Stable. 7. Left knee pain. Continue home medication. She was on oxycodone and Dilaudid at home. Will continue. 8. Restless legs syndrome. Continue on clonazepam. 9. Deep venous thrombosis (DVT) prophylaxis. On subcutaneous heparin 5000 units every 8 hours. DISPOSITION: The patient's lungs sound clear today. Will taper down steroid and switch the patient to by mouth Levaquin. In addition, the patient stated she can go home. However, she was not on oxygen at home. Will continue to monitor the patient and possibly discharge the patient home tomorrow once the patient is able to tolerate room air. In addition, the patient does not want physical therapy. Stated that she would refuse home health if she is being offered home health at home. Stated that she does have a staying at home to help her. The patient has been discussed with attending doctor, Dr. Romero. My preceptor for this patient encounter was Dr. Jayne Romero. The preceptor was physically present in the building during the encounter and was fully available. As needed, all aspects of the patient interview, examination, medical decision making process, and medical care plan development were reviewed and approved by the preceptor. The preceptor is aware and concurs with the plan as stated in the body of this note and will attest to such by his/her cosignature. I have both independently examined this patient as well as reviewed the note. I have discussed in detail with the resident the findings and plan of treatment as documented in the residents note. I will continue to follow the patient and offer further guidance to the patients care as necessary during this hospital stay. Jayne AMIN
[2016-08-13] MEDS ORDERED: methylPREDNISolone INJ 125 MG/2 ML VIAL (J2930) IV SCH (12:00)
[2016-08-13 14:00] VITALS: BP 115/67
--- NOTE | 2016-08-13 19:53 | ECGEPIP ---
Stationary ECG Study [facility] - ED Test Date: 2016-08-13 Pat Name: SARAVANAN DAUGHERTY Department: Room: [place] [address] Gender: F Category Manager: jamaal : 1950 Requested By: Dominguez Rodriguez Order Number: [id number] Reading MD: Brea Ayala Measurements Intervals [place] Rate: 100 P: 49 SD: 142 QRS: 16 QRSD: 87 T: 7 QT: 337 QTc: 436 Interpretive Statements SINUS TACHYCARDIA ABNORMAL RHYTHM ECG LOW LIMB VOLTAGE SIMILAR 03/09/16 Electronically Signed On 08-13-2016 19:53:06 EST by Brea Ayala
[2016-08-13] MEDS ORDERED: clonazePAM 1 MG TAB PO SCH (21:00)
[2016-08-13] MEDS ORDERED: HumaLOG INSULIN (NovoLOG) PER UNIT SC SCH (21:00)
[2016-08-13 22:00] VITALS: BP 142/92
[2016-08-14] MEDS ORDERED: CYCLOBENZAPRINE 10 MG TAB PO ONE
[2016-08-14 06:00] VITALS: BP 128/82
[2016-08-14] MEDS ORDERED: LevoFLOXacin 500 MG TABLET PO SCH (06:00)
[2016-08-14] MEDS: HEPARIN SOD (PORCINE) 5000 UNITS/ML VIAL SC SCH (06:03)
[2016-08-14] MEDS: LEVOTHYROXINE 0.025 MG TAB (25 MCG) PO SCH (06:03)
[2016-08-14 07:05] LABS: MEAN CORPUSCULAR HEMOGLOBIN 27.6 pg (27.0-33.0); MEAN CORPUSCULAR HGB CONC 32.3 g/dl (32.0-36.5); MEAN CORPUSCULAR VOLUME 85.5 fl (80.0-96.0); RED CELL DISTRIBUTION WIDTH 14.4 % (11.5-14.5); WHITE BLOOD COUNT 13.2 K/mm3 (4.0-10.0)
[2016-08-14 07:21] LABS: CALCIUM LEVEL 9.2 MG/DL (8.8-10.2); CREATININE FOR GFR 1.06 MG/DL (0.55-1.02); GLOMERULAR FILTRATION RATE 55.7 (>45); POTASSIUM SERUM 4.1 MEQ/L (3.5-5.1)
[2016-08-14] MEDS: DULoxetine 30 MG CAP (CYMBALTA) PO SCH (08:16)
[2016-08-14] MEDS: CETIRIZINE (ZyrTEC) 10 MG TAB PO SCH (08:16)
[2016-08-14] MEDS: HumaLOG INSULIN (NovoLOG) PER UNIT SC SCH (08:16)
[2016-08-14] MEDS: predniSONE 20 MG TAB PO SCH (08:16)
[2016-08-14] MEDS: oxyCODONE 15 MG CR TAB PO SCH (08:17)
[2016-08-14] MEDS ORDERED: LEVA500T PO (08:20)
[2016-08-14] MEDS ORDERED: PRED5PAK2 PO (09:45)
--- NOTE | 2016-08-14 11:03 | DSES ---
DATE OF ADMISSION: 08/13/2016 DATE OF DISCHARGE: 08/14/2016 ADMISSION DIAGNOSES: 1. Chronic pulmonary obstructive disease (COPD) exacerbation. 2. Chronic asthma. 3. Type 2 diabetes. 4. Hypothyroidism. 5. Sjogren syndrome. 6. Left knee pain. 7. Restless leg syndrome. 8. Anxiety. DISCHARGE DIAGNOSES: 1. Chronic pulmonary obstructive disease (COPD) exacerbation. 2. Chronic asthma. 3. Type 2 diabetes. 4. Hypothyroidism. 5. Sjogren syndrome. 6. Left knee pain. 7. Restless leg syndrome. 8. Anxiety. CONSULTANTS: None. PROCEDURES AND IMAGING: The patient has a portable chest x-ray on the day of admission August 13, 2016 showing cardiomegaly, chronic changes, cannot exclude superimposed pulmonary venous congestion and interstitial edema; as well as left lower lobe atelectasis. HISTORY OF PRESENT ILLNESS (HPI): 65-year-old female with multiple comorbidities presented with shortness of breath since July 28, 2016. She stated that she was seen by Dr. Sung due to congestion and patient has been experiencing environmental allergy. The patient also denies any chills or night sweats. However, the patient expressed that she had one episode of fever at 100.4 which was yesterday. The patient denies any lightheadedness or dizziness. 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 Therefore, they stopped the Lasix recently. She also expressed that she has been having a cough which is dry, however, for the past week the cough has become a more greenish and yellowish color in the sputum and she expressed some shortness of breath which has been increasing and her family forced her to come to the emergency room. The patient expressed that she can only ambulate about 17 steps at the moment due to shortness of breath. She does have a pulse oximeter at home which shows saturation at 89-90%, usually she sats around 94-95%. On the day of admission she was started on intravenous (IV) Levaquin, also Zyrtec, as well as IV steroids and DuoNeb treatments. On the next day the patient's condition improved. Lungs sounds clear. Therefore, she was switched to by mouth steroids and switched to by mouth antibiotic. On August 14, 2016 the patient was stable with no more trouble breathing and would like to go home. She is discharged to home. The patient did say that she does not want any home health. ACTIVITIES: As tolerated. DIET: Carbohydrate consistent diet. DISCHARGE MEDICATIONS: New medications: - Levaquin 500 mg by mouth daily for 7 days - prednisone 5 mg pack, 40 mg then 10 mg three times a day, the 10 mg daily for one day, then 5 mg daily, last day then stop prednisone Continued home medications include: - Ventolin 2 puffs inhalation as directed - albuterol/Duo-Neb treatment every 6 hours as needed - Klonopin 2 mg by mouth at bedtime - cyclobenzaprine 30 mg by mouth nightly - Cymbalta 60 mg by mouth daily - Breo Ellipta 1 puff inhaler daily - Dilaudid 8 mg by mouth three times a day as needed for pain - hydroxyzine 50 mg by mouth as needed - Synthroid 25 mcg by mouth daily - metformin 1000 mg by mouth twice a day - oxycodone 30 mg by mouth every 12 hours FOLLOWUP: The patient should follow with primary care provider within one week. ADDITIONAL INSTRUCTIONS: If the patient develops a temperature greater than 100.4 or any increased breathing or any chest pain not helped with home nebulizer, the patient should go to the emergency room or call private care physician (PCP). The patient has been discussed with attending physician, Dr. Romero. My preceptor for this patient encounter was Dr. Jayne Romero. The preceptor was physically present in the building during the encounter and was fully available as needed. All aspects of the patient interview, examination, medical decision making process, and medical care plan development were reviewed and approved by the preceptor. The preceptor is aware and concurs with the plan as stated in the body of this note and will attest to such by his co-signature. I have both independently examined this patient as well as reviewed the note. I have discussed in detail with the resident the findings and plan of treatment as documented in the residents note. I will continue to follow the patient and offer further guidance to the patients care as necessary during this hospital stay. Jayne AMIN
--- NOTE | 2016-08-15 04:47 | EDDOCDS ---
Physician Documentation [facility] Name: Bessy Miller Age: 65 yrs Sex: Female : 1950 Arrival Date: 08/12/2016 Time: 23:36 Bed 11 Private MD: NO PRIMARY PHYSICIAN, . Disposition: 08/13 02:37 Critical Care:. pc Disposition: 08/13/16 02:38 Hospitalization ordered by Chante Maldonado for Inpatient Admission. Preliminary diagnosis are Hypoxemia, Chronic obstructive pulmonary disease with (acute) exacerbation. - Bed requested for 4 [place]. - Status is Inpatient Admission. mgs - Condition is Stable. - Problem is new. - Symptoms have improved. HPI: 00:19 This 65 yrs old Other Female presents to ER via Walkin/Carried/Asstd with complaints of pc Breathing Difficulty. 00:20 The history is obtained from the patient, the patient's family/friend. The patient pc presents with shortness of breath, with a prior history of COPD. The symptoms began gradually 10 days ago, and became worse yesterday. The symptoms are continuous, and are steadily getting worse. There were no precipitating events that led to the current complaints. The patient has shortness of breath at rest. At their worst, the symptoms were moderate. In the emergency department, the symptoms are unchanged. The patient's shortness of breath is aggravated by coughing, is alleviated by nothing. The patient's dyspnea was accompanied with cough, non-productive. The patient has experienced similar episodes in the past, chronically. The patient has not recently seen a physician. Historical: - Allergies: NSAIDS; Pimindy-Ivs-Ema Reductase Inhibitors; metals; - Home Meds: 1. albuterol sulfate 2.5 mg /3 mL (0.083 %) Inhl nebu 4 times per day 2. Dilaudid 8 mg Oral tab 2-3 times a day 3. inhaler daily 4. OxyContin 30 mg Oral Tb12 1 tab every 12 hours 5. Proventil Inhl twice a day 6. metformin 1,000 mg Oral tab 1 tab 2 times per day 7. levothyroxine 25 mcg Oral tab 1 tab once daily 8. Cymbalta 60 mg Oral cpDR 1 cap once daily 9. amirx 15 mg daily - PMHx: Asthma; COPD; Diabetes - NIDDM: controlled; Hypothyroidism; total knee with revision; - The history from nurses notes was reviewed: and I agree with what is documented. - Social history: Smoking status: Patient states former smoker of tobacco. Race: White, Ethnicity: Not or Preferred Language: Telugu. - : The pt / caregiver states he / she is not on anticoagulants. Home medication list is obtained from the patient, family members. - Hospitalizations: : No recent hospitalization is reported. - Exposure Risk Screening:: None identified. - Immunization history:: All immunizations up-to-date. - Family history: Not pertinent. - Social history:: the patient is a former smoker, the patient does not drink alcohol. ROS: 00:20 All systems are negative except as listed. The gastrointestinal and genitourinary pc components are also addressed in the HPI. Exam: 00:20 General Appearance: alert, the patient is in mild distress. pc 00:20 EENT: normal eye inspection, ears, nose and throat normal, pharynx normal, mucous membranes moist 00:20 Neck: normal inspection. 00:20 Respiratory: no pleuritic chest pain, speaks in full sentences, the patient is in mild respiratory distress, auscultation reveals wheezes, diffusely, decreased air entry noted throughout RR 26, PO 88% on RA. 00:20 Cardiovascular: normal rhythm, no jugular venous distension appreciated, no murmurs, no gallop, the heart rate is tachycardic, at 105 bpm. 00:20 Abdomen: non-tender, non-distended, no organomegaly. 00:20 Skin: normal color, warm, dry. 00:20 Extremities: non-tender, normal range of motion of all joints. 00:20 Neuro: alert, oriented to person, place and time, cranial nerves normal as tested, no motor deficits, no sensory deficits. 00:20 Psych: normal mood. 02:30 Respiratory: no respiratory distress, auscultation reveals wheezes, diffusely, PO 91% pc on 2L. Vital Signs: 08/12 23:38 BP 185 / 87; Pulse 116; Resp 18 S; Temp 97.3(T); Pulse Ox 90% on R/A; Weight 108.86 kg gr2 / 240 lbs (R); Height 5 ft. 3 in. (160.02 cm) (R); Pain 3/10; 23:45 BP 163 / 75 (auto/); mgs 23:46 Pulse 112 MON; Pulse Ox 88% ; mgs 23:53 BP 163 / 75; Pulse 114; Resp 38; Temp 98.2; Pulse Ox 88% on R/A; cf2 23:59 BP 147 / 77 (auto/); mgs 23:59 Pulse 104 MON; Pulse Ox 87% ; mgs 01 00:14 BP 151 / 77 (auto/); mgs 00:14 Pulse 100 MON; Pulse Ox 93% ; mgs 00:29 BP 122 / 69 (auto/); mgs 00:29 Pulse 100 MON; Pulse Ox 97% ; mgs 01:18 BP 135 / 75 (auto/); mgs 01:18 Pulse 102 MON; Pulse Ox 92% ; mgs 01:29 BP 121 / 67 (auto/); mgs 01:29 Pulse 104 MON; Pulse Ox 90% ; mgs 01:44 BP 123 / 64 (auto/); mgs 01:44 Pulse 102 MON; Pulse Ox 91% ; mgs 01:59 BP 125 / 65 (auto/); mgs 01:59 Pulse 102 MON; Pulse Ox 91% ; mgs 02:14 BP 137 / 63 (auto/); mgs 02:14 Pulse 102 MON; Pulse Ox 92% ; mgs 02:29 BP 132 / 69 (auto/); mgs 02:29 Pulse 100 MON; Pulse Ox 92% ; mgs 02:44 BP 124 / 67 (auto/); mgs 02:44 Pulse 98 MON; Pulse Ox 89% ; mgs 02:58 Pulse 100 MON; Pulse Ox 91% ; mgs 02:59 BP 128 / 73 (auto/); mgs 03:23 BP 130 / 64; Pulse 100; Resp 22; Temp 97.9(O); Pulse Ox 91% on 4 lpm NC; mgs 08/12 23:38 Body Mass Index 42.51 (108.86 kg, 160.02 cm) gr2 MDM: 08/12 23:55 Albuterol-Ipratropium 1 neb Nebulizer every 20 minutes x3 ordered. cf2 23:58 Call Respiratory ordered. pc 23:58 -Blood Culture (Adults Only), peripheral from different site, or from device/port/PICC pc etc. if present ordered. 23:58 Roll Filler/Pulse Ox/q 15 min VS ordered. pc 23:58 IV Saline Lock ordered. pc 23:58 Oxygen at 4L/Min NC or Home dosage ordered. pc 23:58 Rhythm Strip to chart ordered. pc 23:59 -Arterial Blood Gas Ordered. EDMS 23:59 Basic Metabolic Profile Ordered. EDMS 23:59 CBC with Diff Ordered. EDMS 23:59 -Blood Culture Ordered. EDMS 23:59 Chest, 1 View Ordered. EDMS 23:59 Call Respiratory complete. cf2 23:59 ECG WITH READING ER PHYS+CARDIAG ordered. EDMS 01/04 00:17 -Blood Culture (Adults Only), peripheral from different site, or from device/port/PICC ml3 etc. if present complete. 00:18 BLOOD CULTURES Ordered. EDMS 00:20 Differential diagnosis: Chronic Obstructive Pulmonary Disease pneumonia. Plan: labs, pc CXR, EKG, nebs. 00:23 Solu-MEDROL 125 mg IVP once ordered. pc 00:23 -Arterial Blood Gas Reviewed. pc 00:24 Obtain sample by nasopharyngeal swab ordered. pc 00:25 -Influenza A&B Rapid Antigen - Nose Ordered. EDMS 00:34 Test interpretation: EKG. pc 02:01 Basic Metabolic Profile Reviewed. pc 02:01 CBC with Diff Reviewed. pc 02:01 -Influenza A&B Rapid Antigen - Nose Reviewed. pc 02:01 Chest, 1 View Reviewed. pc 02:32 Antibiotic administration: Not indicated, the patient does not have an appreciated pc infiltrate. Data reviewed: old medical records, vital signs, nurses notes, EKG(s), lab test results, all radiology studies and available results. Test interpretation: LAB - all labs as ordered have been reviewed, interpreted and considered in the overall management of the clinical presentation; Arterial blood gas is normal. X-RAY - interpreted by me, 1 view chest chronic changes, ?interstitial edema v fibrosis. The patient has been re-examined and re-evaluated. The patient's symptoms have mildly improved after treatment, but she remains hypoxic off oxygen. 02:37 Physician consultation: Dr. Chante Maldonado was contacted at 02:37, regarding admission, and pc will see patient in ED. Disposition: The historical points, examination findings, and any diagnostic results supporting the provided diagnosis, were discussed with the patient or legal guardian. The need for further work-up and/or treatment in the hospital was explained. 02:55 BASIC METABOLIC PROFILE Ordered. EDMS 02:56 Admission / Observation Status ordered. EDMS 02:56 CONSISTENT CARBOHYDRATES ordered. EDMS 02:59 SPUTUM CULTURE AND GRAM STAIN Ordered. EDMS 02:59 PHYSICAL THERAPY EVAL & TREAT ordered. EDMS 03:03 HEMOGLOBIN A1C Ordered. EDMS 03:05 THYROID STIMULATING HORMONE Ordered. EDMS 03:21 [facility] Payment Agreement was scanned into [employer] and attached to record. jp5 03:21 Financial registration complete. jp5 12:08 ECG/EKG was scanned into [employer] and attached to record. EC:34 Rate is 100 beats/min. Rhythm is regular, Normal Sinus Rhythm. QRS [place] is Normal. [place] pc interval is normal. QRS interval is normal. QT interval is normal. No Q waves. T waves are Normal. No ST changes noted. Clinical impression: Normal Sinus Rhythm. Administered Medications: 00:08 Drug: Albuterol-Ipratropium 1 neb [ipratropium-albuterol 0.5 mg-3 mg(2.5 mg base)/3 mL jc3 nebulization soln (1 neb)] Route: Nebulizer; 00:15 Drug: Albuterol-Ipratropium 1 neb [ipratropium-albuterol 0.5 mg-3 mg(2.5 mg base)/3 mL jc3 nebulization soln (1 neb)] Route: Nebulizer; 00:34 Drug: Albuterol-Ipratropium 1 neb [ipratropium-albuterol 0.5 mg-3 mg(2.5 mg base)/3 mL jc3 nebulization soln (1 neb)] Route: Nebulizer; 01:19 Drug: Solu-MEDROL 125 mg [Solu-Medrol 500 mg intravenous solution (125 mg)] Route: IVP; mgs Site: right wrist; Critical Care Time: 02:37 Critical care time: Bedside Care: 25 minutes, Consultation: 10 minutes, Family pc Intervention: 10 minutes. Total time: 45 minutes Signatures: Dispatcher [employer] EDPA Dominguez Patton MD MD pc Joselin Rojas, Reg Reg gb Efde, RenaldoShruthi, Honing Job Setter Unit ml3 Genaro Nunez RN RN mgs Denise Solares jp5 Shellie Muñoz RN RN cf2 Jewel Alatorre jc3 The chart was reviewed and I authenticate all verbal orders and agree with the evaluation and treatment provided.Attachments: 03:21 [facility] [place] Payment Agreement jp5 12:08 ECG/EKG gb Chart Complete MTDD
--- NOTE | 2016-08-15 04:47 | EDDOCDS ---
Physician Documentation [facility] Name: Bessy Miller Age: 65 yrs Sex: Female : 1950 Arrival Date: 08/12/2016 Time: 23:36 Bed 11 Private MD: NO PRIMARY PHYSICIAN, . Disposition: 08/13 02:37 Critical Care:. pc Disposition: 08/13/16 02:38 Hospitalization ordered by Chante Maldonado for Inpatient Admission. Preliminary diagnosis are Hypoxemia, Chronic obstructive pulmonary disease with (acute) exacerbation. - Bed requested for 4 [place]. - Status is Inpatient Admission. mgs - Condition is Stable. - Problem is new. - Symptoms have improved. HPI: 00:19 This 65 yrs old Other Female presents to ER via Walkin/Carried/Asstd with complaints of pc Breathing Difficulty. 00:20 The history is obtained from the patient, the patient's family/friend. The patient pc presents with shortness of breath, with a prior history of COPD. The symptoms began gradually 10 days ago, and became worse yesterday. The symptoms are continuous, and are steadily getting worse. There were no precipitating events that led to the current complaints. The patient has shortness of breath at rest. At their worst, the symptoms were moderate. In the emergency department, the symptoms are unchanged. The patient's shortness of breath is aggravated by coughing, is alleviated by nothing. The patient's dyspnea was accompanied with cough, non-productive. The patient has experienced similar episodes in the past, chronically. The patient has not recently seen a physician. Historical: - Allergies: NSAIDS; Sdhlsuz-Iwr-Hbu Reductase Inhibitors; metals; - Home Meds: 1. albuterol sulfate 2.5 mg /3 mL (0.083 %) Inhl nebu 4 times per day 2. Dilaudid 8 mg Oral tab 2-3 times a day 3. inhaler daily 4. OxyContin 30 mg Oral Tb12 1 tab every 12 hours 5. Proventil Inhl twice a day 6. metformin 1,000 mg Oral tab 1 tab 2 times per day 7. levothyroxine 25 mcg Oral tab 1 tab once daily 8. Cymbalta 60 mg Oral cpDR 1 cap once daily 9. amirx 15 mg daily - PMHx: Asthma; COPD; Diabetes - NIDDM: controlled; Hypothyroidism; total knee with revision; - The history from nurses notes was reviewed: and I agree with what is documented. - Social history: Smoking status: Patient states former smoker of tobacco. Race: White, Ethnicity: Not or Preferred Language: Mohawk. - : The pt / caregiver states he / she is not on anticoagulants. Home medication list is obtained from the patient, family members. - Hospitalizations: : No recent hospitalization is reported. - Exposure Risk Screening:: None identified. - Immunization history:: All immunizations up-to-date. - Family history: Not pertinent. - Social history:: the patient is a former smoker, the patient does not drink alcohol. ROS: 00:20 All systems are negative except as listed. The gastrointestinal and genitourinary pc components are also addressed in the HPI. Exam: 00:20 General Appearance: alert, the patient is in mild distress. pc 00:20 EENT: normal eye inspection, ears, nose and throat normal, pharynx normal, mucous membranes moist 00:20 Neck: normal inspection. 00:20 Respiratory: no pleuritic chest pain, speaks in full sentences, the patient is in mild respiratory distress, auscultation reveals wheezes, diffusely, decreased air entry noted throughout RR 26, PO 88% on RA. 00:20 Cardiovascular: normal rhythm, no jugular venous distension appreciated, no murmurs, no gallop, the heart rate is tachycardic, at 105 bpm. 00:20 Abdomen: non-tender, non-distended, no organomegaly. 00:20 Skin: normal color, warm, dry. 00:20 Extremities: non-tender, normal range of motion of all joints. 00:20 Neuro: alert, oriented to person, place and time, cranial nerves normal as tested, no motor deficits, no sensory deficits. 00:20 Psych: normal mood. 02:30 Respiratory: no respiratory distress, auscultation reveals wheezes, diffusely, PO 91% pc on 2L. Vital Signs: 08/12 23:38 BP 185 / 87; Pulse 116; Resp 18 S; Temp 97.3(T); Pulse Ox 90% on R/A; Weight 108.86 kg gr2 / 240 lbs (R); Height 5 ft. 3 in. (160.02 cm) (R); Pain 3/10; 23:45 BP 163 / 75 (auto/); mgs 23:46 Pulse 112 MON; Pulse Ox 88% ; mgs 23:53 BP 163 / 75; Pulse 114; Resp 38; Temp 98.2; Pulse Ox 88% on R/A; cf2 23:59 BP 147 / 77 (auto/); mgs 23:59 Pulse 104 MON; Pulse Ox 87% ; mgs 01 00:14 BP 151 / 77 (auto/); mgs 00:14 Pulse 100 MON; Pulse Ox 93% ; mgs 00:29 BP 122 / 69 (auto/); mgs 00:29 Pulse 100 MON; Pulse Ox 97% ; mgs 01:18 BP 135 / 75 (auto/); mgs 01:18 Pulse 102 MON; Pulse Ox 92% ; mgs 01:29 BP 121 / 67 (auto/); mgs 01:29 Pulse 104 MON; Pulse Ox 90% ; mgs 01:44 BP 123 / 64 (auto/); mgs 01:44 Pulse 102 MON; Pulse Ox 91% ; mgs 01:59 BP 125 / 65 (auto/); mgs 01:59 Pulse 102 MON; Pulse Ox 91% ; mgs 02:14 BP 137 / 63 (auto/); mgs 02:14 Pulse 102 MON; Pulse Ox 92% ; mgs 02:29 BP 132 / 69 (auto/); mgs 02:29 Pulse 100 MON; Pulse Ox 92% ; mgs 02:44 BP 124 / 67 (auto/); mgs 02:44 Pulse 98 MON; Pulse Ox 89% ; mgs 02:58 Pulse 100 MON; Pulse Ox 91% ; mgs 02:59 BP 128 / 73 (auto/); mgs 03:23 BP 130 / 64; Pulse 100; Resp 22; Temp 97.9(O); Pulse Ox 91% on 4 lpm NC; mgs 08/12 23:38 Body Mass Index 42.51 (108.86 kg, 160.02 cm) gr2 MDM: 08/12 23:55 Albuterol-Ipratropium 1 neb Nebulizer every 20 minutes x3 ordered. cf2 23:58 Call Respiratory ordered. pc 23:58 -Blood Culture (Adults Only), peripheral from different site, or from device/port/PICC pc etc. if present ordered. 23:58 Strategy Specialist/Pulse Ox/q 15 min VS ordered. pc 23:58 IV Saline Lock ordered. pc 23:58 Oxygen at 4L/Min [place] or Home dosage ordered. pc 23:58 Rhythm Strip to chart ordered. pc 23:59 -Arterial Blood Gas Ordered. EDMS 23:59 Basic Metabolic Profile Ordered. EDMS 23:59 CBC with Diff Ordered. EDMS 23:59 -Blood Culture Ordered. EDMS 23:59 Chest, 1 View Ordered. EDMS 23:59 Call Respiratory complete. cf2 23:59 ECG WITH READING ER PHYS+CARDIAG ordered. EDMS 01/04 00:17 -Blood Culture (Adults Only), peripheral from different site, or from device/port/PICC ml3 etc. if present complete. 00:18 BLOOD CULTURES Ordered. EDMS 00:20 Differential diagnosis: Chronic Obstructive Pulmonary Disease pneumonia. Plan: labs, pc CXR, EKG, nebs. 00:23 Solu-MEDROL 125 mg IVP once ordered. pc 00:23 -Arterial Blood Gas Reviewed. pc 00:24 Obtain sample by nasopharyngeal swab ordered. pc 00:25 -Influenza A&B Rapid Antigen - Nose Ordered. EDMS 00:34 Test interpretation: EKG. pc 02:01 Basic Metabolic Profile Reviewed. pc 02:01 CBC with Diff Reviewed. pc 02:01 -Influenza A&B Rapid Antigen - Nose Reviewed. pc 02:01 Chest, 1 View Reviewed. pc 02:32 Antibiotic administration: Not indicated, the patient does not have an appreciated pc infiltrate. Data reviewed: old medical records, vital signs, nurses notes, EKG(s), lab test results, all radiology studies and available results. Test interpretation: LAB - all labs as ordered have been reviewed, interpreted and considered in the overall management of the clinical presentation; Arterial blood gas is normal. X-RAY - interpreted by me, 1 view chest chronic changes, ?interstitial edema v fibrosis. The patient has been re-examined and re-evaluated. The patient's symptoms have mildly improved after treatment, but she remains hypoxic off oxygen. 02:37 Physician consultation: Dr. Chante Maldonado was contacted at 02:37, regarding admission, and pc will see patient in ED. Disposition: The historical points, examination findings, and any diagnostic results supporting the provided diagnosis, were discussed with the patient or legal guardian. The need for further work-up and/or treatment in the hospital was explained. 02:55 BASIC METABOLIC PROFILE Ordered. EDMS 02:56 Admission / Observation Status ordered. EDMS 02:56 CONSISTENT CARBOHYDRATES ordered. EDMS 02:59 SPUTUM CULTURE AND GRAM STAIN Ordered. EDMS 02:59 PHYSICAL THERAPY EVAL & TREAT ordered. EDMS 03:03 HEMOGLOBIN A1C Ordered. EDMS 03:05 THYROID STIMULATING HORMONE Ordered. EDMS 03:21 [facility] Payment Agreement was scanned into [employer] and attached to record. jp5 03:21 Financial registration complete. jp5 12:08 ECG/EKG was scanned into [employer] and attached to record. EC:34 Rate is 100 beats/min. Rhythm is regular, Normal Sinus Rhythm. QRS [place] is Normal. [place] pc interval is normal. QRS interval is normal. QT interval is normal. No Q waves. T waves are Normal. No ST changes noted. Clinical impression: Normal Sinus Rhythm. Administered Medications: 00:08 Drug: Albuterol-Ipratropium 1 neb [ipratropium-albuterol 0.5 mg-3 mg(2.5 mg base)/3 mL jc3 nebulization soln (1 neb)] Route: Nebulizer; 00:15 Drug: Albuterol-Ipratropium 1 neb [ipratropium-albuterol 0.5 mg-3 mg(2.5 mg base)/3 mL jc3 nebulization soln (1 neb)] Route: Nebulizer; 00:34 Drug: Albuterol-Ipratropium 1 neb [ipratropium-albuterol 0.5 mg-3 mg(2.5 mg base)/3 mL jc3 nebulization soln (1 neb)] Route: Nebulizer; 01:19 Drug: Solu-MEDROL 125 mg [Solu-Medrol 500 mg intravenous solution (125 mg)] Route: IVP; mgs Site: right wrist; Critical Care Time: 02:37 Critical care time: Bedside Care: 25 minutes, Consultation: 10 minutes, Family pc Intervention: 10 minutes. Total time: 45 minutes Signatures: Dispatcher [employer] EDAK Dominguez Patton MD MD pc Joselin Rojas, Reg Reg gb Fede, RenaldoShruthi, Market President Unit ml3 Genaro Nunez RN RN mgs Denise Solares jp5 Shellie Muñoz RN RN cf2 Jewel Alatorre jc3 The chart was reviewed and I authenticate all verbal orders and agree with the evaluation and treatment provided.Attachments: 03:21 [place] [place] Agreement jp5 12:08 ECG/EKG gb Chart Complete MTDD
--- NOTE | 2016-08-15 04:47 | EDDOCDS ---
Nurse's Notes [facility] Name: Bessy Miller Age: 65 yrs Sex: Female : 1950 Arrival Date: 08/12/2016 Time: 23:36 Bed 11 Private MD: NO PRIMARY PHYSICIAN, . Diagnosis: Hypoxemia;Chronic obstructive pulmonary disease with (acute) exacerbation Presentation: 08/12 23:45 Red Flag criteria, patient assessed and taken directly to a bed. Pt taken directly to 1 11 in Main ED. charge Nurse aware, Shellie Rothman at bedside with pt. 23:49 Presenting complaint: Patient states: "shortness of breath and wheezing getting worse cf2 over the past week". Patient with audible wheezing and tripoding. Adult Sepsis Screening: The patient does not have new or worsening altered mentation. Patient has a respiratory rate of greater than or equal to 22 (1 point). Systolic blood pressure is greater than 100. Patient has a qSOFA score of 1- Negative Sepsis Screen. Suicide/Homicide risk assessment- the patient denies having any suicidal and/or homicidal ideations and does not present with any other emotional, behavioral or mental health complaints. 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 Transition of care: patient was not received from another setting of care. Care prior to arrival: Medications administered prior to arrival: Duoneb every 4 hours. 23:49 Acuity: SAVANNAH Level 2 cf2 23:49 Method Of Arrival: Walkin/Carried/Asstd cf2 Triage Assessment: 23:53 General: Appears distressed, uncomfortable, Behavior is anxious, restless. Pain: Denies cf2 pain. 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 Pt Declines HIV testing. The patient is triaged at the bedside. See Assessment in Nurses Notes section of ED record. Neurological: No deficits noted. EENT: No deficits noted. Cardiovascular: No deficits noted. Respiratory: Onset: The symptoms/episode began/occurred gradually, Airway is patent Respiratory effort is labored, with nasal flaring, pursed lip, Respiratory pattern is tachypnea Breath sounds with wheezes inspiratory expiratory bilaterally. Reports shortness of breath cough that is the patient has moderate shortness of breath. GI: No deficits noted. : No deficits noted. Derm: No deficits noted. Musculoskeletal: No deficits noted. Injury Description: No known injury. Historical: - Allergies: NSAIDS; Xuyulqk-Jsm-Guh Reductase Inhibitors; metals; - Home Meds: 1. albuterol sulfate 2.5 mg /3 mL (0.083 %) Inhl nebu 4 times per day 2. Dilaudid 8 mg Oral tab 2-3 times a day 3. inhaler daily 4. OxyContin 30 mg Oral Tb12 1 tab every 12 hours 5. Proventil Inhl twice a day 6. metformin 1,000 mg Oral tab 1 tab 2 times per day 7. levothyroxine 25 mcg Oral tab 1 tab once daily 8. Cymbalta 60 mg Oral cpDR 1 cap once daily 9. amirx 15 mg daily - PMHx: Asthma; COPD; Diabetes - NIDDM: controlled; Hypothyroidism; total knee with revision; - The history from nurses notes was reviewed: and I agree with what is documented. - Social history: Smoking status: Patient states former smoker of tobacco. Race: White, Ethnicity: Not or Preferred Language: Albanian. - : The pt / caregiver states he / she is not on anticoagulants. Home medication list is obtained from the patient, family members. - Hospitalizations: : No recent hospitalization is reported. - Exposure Risk Screening:: None identified. - Immunization history:: All immunizations up-to-date. - Family history: Not pertinent. - Social history:: the patient is a former smoker, the patient does not drink alcohol. Screenin/04 00:03 Screening information is obtained from the patient. Fall risk: At risk due to prior mgs history of falls. Assistance ADL's: requires no assistance with activities of daily living. Abuse/DV Screen: The patient / caregiver reports he/she is: not in a situation that causes fear, pain or injury. Nutritional screening: No deficits noted. Advance Directives: Currently, there is no health care proxy. There is no active DNR order. home support is adequate. Assessment: 08/12 23:57 Adult Sepsis Screening: The patient does not have new or worsening altered mentation. mgs Patient has a respiratory rate of greater than or equal to 22 (1 point). Systolic blood pressure is greater than 100. Patient has a qSOFA score of 1- Negative Sepsis Screen. General: Appears in no apparent distress, Behavior is appropriate for age, cooperative. Pain: Denies pain. Neurological: Level of Consciousness is awake, alert, Oriented to person, place, time. Cardiovascular: Capillary refill < 3 seconds Heart tones S1 S2 present Pulses are 2+ in right radial artery and left radial artery. Respiratory: Airway is patent Respiratory effort is even, unlabored, Respiratory pattern is regular, symmetrical, Breath sounds are diminished bilaterally. Breath sounds with wheezes expiratory bilaterally. Derm: Skin is pink, warm & dry. 08/13 01:22 General: Appears in no apparent distress, Behavior is appropriate for age, cooperative. mgs Pain: Denies pain. Neurological: Level of Consciousness is awake, alert, Oriented to person, place, time. Cardiovascular: Capillary refill < 3 seconds Heart tones S1 S2 present Pulses are 2+ in right radial artery and left radial artery. Respiratory: Airway is patent Respiratory effort is even, unlabored, Respiratory pattern is regular, symmetrical. 02:16 Adult Sepsis Screening: The patient does not have new or worsening altered mentation. mgs Patient has a respiratory rate of greater than or equal to 22 (1 point). Systolic blood pressure is greater than 100. Patient has a qSOFA score of 1- Negative Sepsis Screen. General: Appears in no apparent distress, Behavior is appropriate for age, cooperative. Pain: Denies pain. Neurological: Level of Consciousness is awake, alert, Oriented to person, place, time. Cardiovascular: Capillary refill < 3 seconds Heart tones S1 S2 present Pulses are 2+ in right radial artery and left radial artery Rhythm is sinus tachycardia No ectopy. Respiratory: Airway is patent Respiratory effort is even, unlabored, Respiratory pattern is regular, symmetrical. Derm: Skin is pink, warm & dry. 02:59 Adult Sepsis Screening: The patient does not have new or worsening altered mentation. mgs Patient has a respiratory rate of greater than or equal to 22 (1 point). Systolic blood pressure is greater than 100. Patient has a qSOFA score of 1- Negative Sepsis Screen. General: Appears in no apparent distress, Behavior is appropriate for age, cooperative. Pain: Denies pain. Neurological: Level of Consciousness is awake, alert, Oriented to person, place, time. Cardiovascular: Capillary refill < 3 seconds. Respiratory: Airway is patent Respiratory effort is even, unlabored, Respiratory pattern is regular, symmetrical. Derm: Skin is pink, warm & dry. 03:23 General: Appears in no apparent distress, Behavior is appropriate for age, cooperative. mgs Pain: Denies pain. Neurological: Level of Consciousness is awake, alert, Oriented to person, place, time. Cardiovascular: Capillary refill < 3 seconds. Respiratory: Airway is patent Respiratory effort is even, unlabored, Respiratory pattern is regular, symmetrical. Derm: Skin is intact, Skin is pink, warm & dry. 03:43 General: Appears in no apparent distress, Behavior is appropriate for age, cooperative. mgs Pain: Denies pain. Neurological: Level of Consciousness is awake, alert, Oriented to person, place, time. Cardiovascular: Capillary refill < 3 seconds. Respiratory: Airway is patent Respiratory effort is even, unlabored, Respiratory pattern is regular, symmetrical. Derm: Skin is pink, warm & dry. Vital Signs: 08/12 23:38 BP 185 / 87; Pulse 116; Resp 18 S; Temp 97.3(T); Pulse Ox 90% on R/A; Weight 108.86 kg gr2 (R); Height 5 ft. 3 in. (160.02 cm) (R); Pain 10/17; 23:45 BP 163 / 75 (auto/); mgs 23:46 Pulse 112 MON; Pulse Ox 88% ; mgs 23:53 BP 163 / 75; Pulse 114; Resp 38; Temp 98.2; Pulse Ox 88% on R/A; cf2 23:59 BP 147 / 77 (auto/); mgs 23:59 Pulse 104 MON; Pulse Ox 87% ; mgs / 00:14 BP 151 / 77 (auto/); mgs 00:14 Pulse 100 MON; Pulse Ox 93% ; mgs 00:29 BP 122 / 69 (auto/); mgs 00:29 Pulse 100 MON; Pulse Ox 97% ; mgs 01:18 BP 135 / 75 (auto/); mgs 01:18 Pulse 102 MON; Pulse Ox 92% ; mgs 01:29 BP 121 / 67 (auto/); mgs 01:29 Pulse 104 MON; Pulse Ox 90% ; mgs 01:44 BP 123 / 64 (auto/); mgs 01:44 Pulse 102 MON; Pulse Ox 91% ; mgs 01:59 BP 125 / 65 (auto/); mgs 01:59 Pulse 102 MON; Pulse Ox 91% ; mgs 02:14 BP 137 / 63 (auto/); mgs 02:14 Pulse 102 MON; Pulse Ox 92% ; mgs 02:29 BP 132 / 69 (auto/); mgs 02:29 Pulse 100 MON; Pulse Ox 92% ; mgs 02:44 BP 124 / 67 (auto/); mgs 02:44 Pulse 98 MON; Pulse Ox 89% ; mgs 02:58 Pulse 100 MON; Pulse Ox 91% ; mgs 02:59 BP 128 / 73 (auto/); mgs 03:23 BP 130 / 64; Pulse 100; Resp 22; Temp 97.9(O); Pulse Ox 91% on 4 lpm NC; mgs 08/12 23:38 Body Mass Index 42.51 (108.86 kg, 160.02 cm) gr2 Vitals: 08/12 23:38 Log In Time: August 12, 2016 at 23:38. RN notified that patient meets Red Flag gr2 criteria. ED Course: 23:37 Patient visited by Susan Maddox. gr2 23:37 NO PRIMARY PHYSICIAN, . is Private Physician. gr2 23:37 Patient moved to Waiting gr2 23:39 Patient visited by Susan Maddox. gr2 23:39 Patient moved to Pre RCE gr2 23:44 Ashley Cobb,RN is Primary Nurse. ml3 23:44 Patient moved to 11 ml3 23:49 Primary Nurse role handed off by Ashley Cobb,SAMMI cf2 23:49 Shellie Muñoz,RN is Primary Nurse. cf2 23:49 Patient visited by Shellie Muñoz,SAMMI. cf2 23:51 Triage Initiated cf2 23:57 Dominguez Patton MD is Attending Physician. pc 08/13 00:01 Patient visited by Dominguez Patton MD. pc 00:15 -Arterial Blood Gas Sent. jc3 00:16 -Blood Culture Sent. mgs 00:16 Basic Metabolic Profile Sent. mgs 00:16 CBC with Diff Sent. mgs 00:20 Missed attempts: 20 gauge X 1 in left antecubital area. mgs 00:20 Missed attempts: 20 gauge in right forearm. mgs 00:21 Patient visited by Genaro Nunez RN. mgs 00:22 EKG done. (by ED staff). Reviewed by Dominguez Patton MD. jp4 00:24 Patient visited by Hammad Hsu. jp4 01:23 Patient visited by Genaro Nunez,SAMMI. mgs 01:24 Chest, 1 View Returned. EDMS 02:17 Patient visited by Genaro Nunez,SAMMI. mgs 02:38 Joel Chante is Hospitalizing Provider. pc 03:00 Patient visited by Genaro Nunez,RN. mgs 03:21 [facility] Payment Agreement was scanned into [employer] and attached to record. jp5 03:22 Inserted saline lock: 20 gauge in right hand. mgs 03:44 The patient / caregiver is instructed regarding the plan of care and ED course. mgs 03:44 No procedures done that require assistance. mgs 12:08 ECG/EKG was scanned into [employer] and attached to record. gb Administered Medications: 00:08 Drug: Albuterol-Ipratropium 1 neb [ipratropium-albuterol 0.5 mg-3 mg(2.5 mg base)/3 mL jc3 nebulization soln (1 neb)] Route: Nebulizer; 00:15 Drug: Albuterol-Ipratropium 1 neb [ipratropium-albuterol 0.5 mg-3 mg(2.5 mg base)/3 mL jc3 nebulization soln (1 neb)] Route: Nebulizer; 00:34 Drug: Albuterol-Ipratropium 1 neb [ipratropium-albuterol 0.5 mg-3 mg(2.5 mg base)/3 mL jc3 nebulization soln (1 neb)] Route: Nebulizer; 01:19 Drug: Solu-MEDROL 125 mg [Solu-Medrol 500 mg intravenous solution (125 mg)] Route: IVP; mgs Site: right wrist; RT: 00:15 ABG's drawn from right radial artery pressure held for 5 minutes no bleeding noted jc3 pressure bandage applied specimen sent pt. tolerated well. Initial Med Neb Given as ordered Patient tolerated procedure well without adverse effect. O2 via nasal cannula \\T\\ 2L/min. Respiratory: Breath sounds are coarse bilaterally. Breath sounds are diminished bilaterally. Breath sounds with wheezes bilaterally. at expiration. 00:25 Subsequent Med Neb Given as ordered. Respiratory: Breath sounds are coarse Breath jc3 sounds are diminished bilaterally. Breath sounds with wheezes bilaterally. at expiration. 00:34 Subsequent Med Neb Given as ordered. Respiratory: Breath sounds are diminished jc3 bilaterally. Breath sounds with wheezes bilaterally. at expiration. Order Results: Lab Order: -Arterial Blood Gas; SPEC'M 08/13/16 00:07 Test: ABG pH (ARTERIAL); Value: 7.393; Range: 7.350-7.450; Units: UNITS; Status: F Test: ABG PARTIAL PRESSURE CO2; Value: 41.4; Range: 35.0-45.0; Units: mmHg; Status: F Test: ABG PARTIAL PRESSURE O2; Value: 76.3; Range: 75.0-100.0; Units: mmHg; Status: F Test: ABG TOTAL CO2; Value: 25.9; Range: 23.0-31.0; Units: MEQ/L; Status: F Test: ABG HCO3; Value: 24.7; Range: 22.0-26.0; Units: MEQ/L; Status: F Test: ABG BASE EXCESS; Value: -0.3; Range: -2.0-2.0; Status: F Test: ABG STANDARD HCO3; Value: 24.2; Range: 22.0-26.0; Units: MEQ/L; Status: F Test: ABG O2 SATURATION; Value: 95.7; Range: 95.0-99.0; Units: %; Status: F Test: ABG DEVICE; Value: NASAL MAVIS; Status: F Lab Order: Basic Metabolic Profile; SPEC'M 08/13/16 00:13 Test: GLUCOSE, FASTING; Value: 150; Range: 80-110; Abnormal: Above high normal; Units: MG/DL; Status: F Test: BLOOD UREA NITROGEN; Value: 12; Range: 7-18; Units: MG/DL; Status: F Test: CREATININE FOR GFR; Value: 1.01; Range: 0.55-1.02; Units: MG/DL; Status: F Test: GLOMERULAR FILTRATION RATE; Value: 58.9; Range: >45; Status: F Test: SODIUM LEVEL; Value: 138; Range: 136-145; Units: MEQ/L; Status: F Test: POTASSIUM SERUM; Value: 4.7; Range: 3.5-5.1; Units: MEQ/L; Status: F Test: CHLORIDE LEVEL; Value: 102; Range: 98-107; Units: MEQ/L; Status: F Test: CARBON DIOXIDE LEVEL; Value: 27; Range: 21-32; Units: MEQ/L; Status: F Test: ANION GAP; Value: 9; Range: 8-16; Units: MEQ/L; Status: F Test: CALCIUM LEVEL; Value: 8.7; Range: 8.8-10.2; Abnormal: Below low normal; Units: MG/DL; Status: F Test Note: ; Units are mL/min/1.73 m2 Chronic Kidney Disease Staging per NKF: Stage I & II GFR >=60 Normal to Mildly Decreased Stage III GFR 30-59 Moderately Decreased Stage IV GFR 15-29 Severely Decreased Stage V GFR <15 Very Little GFR Left ESRD GFR <15 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 Lab Order: CBC with Diff; SPEC'M 08/13/16 00:13 Test: WHITE BLOOD COUNT; Value: 9.9; Range: 4.0-10.0; Units: K/mm3; Status: F Test: RED BLOOD COUNT; Value: 4.46; Range: 4.00-5.40; Units: M/mm3; Status: F Test: HEMOGLOBIN; Value: 12.4; Range: 12.0-16.0; Units: g/dl; Status: F Test: HEMATOCRIT; Value: 38.4; Range: 36.0-47.0; Units: %; Status: F Test: MEAN CORPUSCULAR VOLUME; Value: 86.2; Range: 80.0-96.0; Units: fl; Status: F Test: MEAN CORPUSCULAR HEMOGLOBIN; Value: 27.8; Range: 27.0-33.0; Units: pg; Status: F Test: MEAN CORPUSCULAR HGB CONC; Value: 32.3; Range: 32.0-36.5; Units: g/dl; Status: F Test: RED CELL DISTRIBUTION WIDTH; Value: 15.1; Range: 11.5-14.5; Abnormal: Above high normal; Units: %; Status: F Test: PLATELET COUNT, AUTOMATED; Value: 270; Range: 150-450; Units: k/mm3; Status: F Test: NEUTROPHILS %; Value: 68.1; Range: 36.0-66.0; Abnormal: Above high normal; Units: %; Status: F Test: LYMPH %; Value: 21.4; Range: 24.0-44.0; Abnormal: Below low normal; Units: %; Status: F Test: MONO %; Value: 5.2; Range: 0.0-5.0; Abnormal: Above high normal; Units: %; Status: F Test: EOS %; Value: 2.5; Range: 0.0-3.0; Units: %; Status: F Test: BASO %; Value: 0.6; Range: 0.0-1.0; Units: %; Status: F Test: LARGE UNSTAINED CELL %; Value: 2.2; Range: 0.0-4.0; Units: %; Status: F Test: NEUTROPHILS #; Value: 6.7; Range: 1.8-7.7; Units: K/mm3; Status: F Test: LYMPH #; Value: 2.3; Range: 1.5-4.5; Units: K/mm3; Status: F Test: MONO #; Value: 0.5; Range: 0.0-0.8; Units: K/mm3; Status: F Test: EOS #; Value: 0.2; Range: 0.0-0.50; Units: K/mm3; Status: F Test: BASO #; Value: 0.1; Range: 0.0-0.2; Units: K/mm3; Status: F Test: LARGE UNSTAINED CELL #; Value: 0.2; Range: 0.0-0.4; Units: K/mm3; Status: F Lab Order: -Influenza A&B Rapid Antigen - Nose; SPEC'M 08/13/16 00:47 Test: INFLUENZA A RAPID SCR by ICA; Value: INFLUENZA A RESULTS NEGATIVE; Status: F Test: INFLUENZA A RAPID SCR by ICA; Value: Comments:; Status: F Test: INFLUENZA B RAPID SCR by ICA; Value: INFLUENZA B RESULTS NEGATIVE; Status: F Test Note: ; The Influenza test is a direct rapid immunoassay for the qualitative detection of Influenza viral antigen. Cell culture (Viral Culture) testing should be considered to confirm NEGATIVE results and to assist in detecting other viruses that can provide similar clinical symptoms. Please contact the lab within 24 hours ([phone]) if confirmatory testing is desired. Radiology Order: Chest, 1 View Test: Chest, 1 View REASON FOR EXAMINATION: Shortness of Breath; Clinical: Shortness of breath.; ; Comparison: 03/09/2016.; ; Findings:; Portable technique and underpenetration accentuate the pulmonary vasculature and; interstitium. Chronic interstitial changes are appreciated and superimposed; pulmonary vascular congestion with interstitial edema cannot be excluded. Stable; cardiomegaly. Trace left basilar atelectasis cannot be excluded. No; pneumothorax. No obvious effusion. Skeletal structures intact.; ; Impression:; Cardiomegaly and chronic changes.; Cannot exclude superimposed pulmonary venous congestion and interstitial edema as; well as left lower lobe atelectasis.; ; ; Signed by; Juan Carlos Mcfarland MD 08/13/2016 12:59 A; Outcome: 02:38 Decision to Hospitalize by Provider. pc 03:44 Discharge Assessment: Patient awake, alert and oriented x 3. No cognitive and/or mgs functional deficits noted. Patient verbalized understanding of disposition instructions. patient administered narcotics - no. The following High Risk Discharge criteria are identified: None. Admitted to Med/Surg accompanied by tech, family with patient, via stretcher, with oxygen, with chart. Condition: stable. Property :Personal belongings accompany Pt. 03:45 No special radiology studies were completed. mgs 03:46 Patient left the ED. mgs Signatures: Dispatcher [employer] EDMS Dominguez Patton MD MD pc Barnhardt, Gloria, Reg Reg Fede RenaldoShruthi, Live In Caregiver Unit ml3 Anne Jensen,RN RN lf1 Jewel Alatorre jc3 Susan Maddox gr2 Hammad Hsu jp4 Genaro Nunez RN RN mgs Denise Solares jp5 Shellie Muñoz,RN RN cf2 Corrections: (The following items were deleted from the chart) 01:23 08/12 23:57 Cardiovascular: Capillary refill is > 3 seconds Heart tones S1 S3 present mgs Pulses are 2+ in right radial artery and left radial artery mgs Chart Complete MTDD
== END 2016-08-14 10:30 | disposition home or self-care (01) | DRG 192 ==
LOC: M ED 23:36 → M ED INP 08-13 02:51 → M MSPAV 08-13 03:52
PROVIDERS: ADMIT Internal Medicine; ATTEND Hospitalist
DX: J44.1 Chronic obstructive pulmonary disease with (acute) exacerbation (principal); E11.9 Type 2 diabetes mellitus without complications; E03.9 Hypothyroidism, unspecified; M35.00 Sjogren syndrome, unspecified; M25.562 Pain in left knee; G25.81 Restless legs syndrome; F41.9 Anxiety disorder, unspecified; Z79.84 Long term (current) use of oral hypoglycemic drugs; Z79.891 Long term (current) use of opiate analgesic; Z79.899 Other long term (current) drug therapy

== ENCOUNTER → 2016-08-25 | Outpatient (REF) | payer OTHER ==
[~2016-08-25] MED LIST changes: +AMRI15CA10 PO; +BREO1INH3 INH; +CYMB60CA3 PO; +DILA8TAB4 PO; +HYDR-4274 PO; +IPRASOL4 IN; +LEVA500T PO; +LEVO25TA5 PO; +PRED5PAK2 PO; -PRIL20CA PO; +PRIL20CA9 PO
[2016-08-25 12:58] LABS: BASO % 0.2 % (0.0-1.0); EOS # 0.1 K/mm3 (0.0-0.50); EOS % 0.7 % (0.0-3.0); LARGE UNSTAINED CELL # 0.1 K/mm3 (0.0-0.4); LYMPH # 1.5 K/mm3 (1.5-4.5); LYMPH % 12.7 % (24.0-44.0); MEAN CORPUSCULAR HGB CONC 32.5 g/dl (32.0-36.5); MEAN CORPUSCULAR VOLUME 86.2 fl (80.0-96.0); MONO # 0.6 K/mm3 (0.0-0.8); MONO % 5.1 % (0.0-5.0); NEUTROPHILS # 9.5 K/mm3 (1.8-7.7); NEUTROPHILS % 80.3 % (36.0-66.0); PLATELET COUNT, AUTOMATED 263 k/mm3 (150-450); RED CELL DISTRIBUTION WIDTH 14.3 % (11.5-14.5); WHITE BLOOD COUNT 11.9 K/mm3 (4.0-10.0)
== END ==
LOC: M SFHCPLAZ 11:17
PROVIDERS: ATTEND Family Medicine
DX: R35.0 Frequency of micturition (principal); J01.90 Acute sinusitis, unspecified

== ENCOUNTER → 2016-09-29 | Outpatient (CLI) | payer BC | LOC: M PAIN 10:00 | PROVIDERS: ATTEND Nurse Practitioner Family | DX: Z53.29 Procedure and treatment not carried out because of patient's decision for other reasons (principal) ==

== ENCOUNTER → 2016-10-20 | Outpatient (CLI) | payer OTHER, BC ==
--- NOTE | 2016-10-21 00:09 | ECWPNPC ---
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 RATING PAIN VAS 7/10.REPORTS EPISODIC SHOOTING PAIN LEFT KNEE RADIATING UP LEFT THIGH.THIS IS CHRONIC PAIN RELATED TO WORK INJURY 04-29-05.CURRENTLY USING OXYCONTIN 10MG DAILY,HYDROMORPHONE 4MG Q8H PRN ,CYMBALTA 60MG QD AND AMRIX 15MG 2 TAB DAILYDENIES ADVERSE EFFECTS OF MEDICATION. PAIN THE PATIENT DESCRIBES THE PAIN... THE PATIENT DESCRIBES THE PAIN... THE PATIENT DESCRIBES THE PAIN... THE PATIENT DESCRIBES THE PAIN... 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 TWICE DAILY TAKING CYMBALTA 60 MG CAPSULE DELAYED RELEASE PARTICLES 1 CAPSULE ORALLY ONCE A DAY TAKING HYDROXYZINE HCL 50 MG TABLET 1 TABLET NEEDED ORALLY QID TAKING IPRATROPIUM-ALBUTEROL 0.5-2.5 (3) MG/3ML SOLUTION 3 ML INHALATION EVERY 6 HRS TAKING BREO ELLIPTA 100 MCG/25 MCG INHALATION POWDER ONE INHALATION ORALLY ONCE DAILY TAKING METFORMIN HCL 1000 MG TABLET 1 TABLET WITH MEALS ORALLY TWICE A DAY TAKING HYDROMORPHONE HCL 4 MG TABLET 1 TABLET ORALLY EVERY 8 HRS PRN MDD3 TAKING OXYCODONE HCL ER 15 MG TABLET ER 12 HOUR ABUSE-DETERRENT 1 TABLET ORALLY BID MDD2 TAKING CLONAZEPAM 2 MG TABLET 1 TABLET ORALLY DAILY MDD:1 TAKING AMRIX 15 MG CAPSULE EXTENDED RELEASE 24 HOUR 2 CAPSULE ORALLY ONCE A DAY NOT-TAKING IPRATROPIUM-ALBUTEROL 0.5-2.5 (3) MG/3ML SOLUTION 3 ML INHALATION EVERY 6 HRS NOT-TAKING CEFDINIR 300 MG CAPSULE 1 CAPSULE ORALLY EVERY 12 HRS NOT-TAKING AZITHROMYCIN (5 DAY) 250 MG TABLET DIRECTED ORALLY 2 PILLS ON DAY 1, THEN 1 PILL DAILY UNTIL GONE NOT-TAKING PREDNISONE 20 MG TABLET 2 TABLET ORALLY TWICE DAILY X 5 DAYS, THEN 1 TAB TWICE DAILY X 3 DAYS NOT-TAKING PREDNISONE 10 MG TABLET 1 TABLET ORALLY TWICE DAILY X 3 DAYS AFTER COMPLETION OF 20MG COURSE MEDICATION LIST REVIEWED AND RECONCILED WITH THE PATIENT PAST MEDICAL HISTORY COPD ASTHMA DIABETES - NIDDM HYPOTHYROIDISM 10 CM RETROCARDIAC HIATAL HERNIA SJOGREN SYNDROME ALLERGIES NICKEL: SWELLING: ALLERGY STATINS (FOR ALLERGY USE ONLY): INCREASED LFTS, MUSCULAR PAIN: ALLERGY NSAIDS: ABDOMINAL PAIN, GI ULCER: ALLERGY LEVAQUIN: FACIAL SWELLING: ALLERGY SOCIAL HISTORY GENERAL: TOBACCO USE ARE YOU A:NONSMOKER LEARNING BARRIERS / SPECIAL NEEDS ORIENTED TO PLAN OF CARE: PATIENT, PAIN MANAGEMENT PATIENT, ORIENTED TO PLAN OF CARE: PATIENT, PAIN MANAGEMENT PATIENT. NEW PATIENT PAIN DIARY TODAY'S VISITNOTES FROM 0-10, WHAT LEVEL IS YOUR PAIN TODAY?0 PAIN CLINIC PFS, CLERGY, PUBLIC HEALTH REFERRALS PFS REFERRAL NEEDED?NO CLERGY REFERRAL NEEDED?NO PUBLIC HEALTH REFERRAL NEEDED?NO WAS THE PROVIDER NOTIFIED OF ANY PERTINENT INFO?NO PFS REFERRAL NEEDED?NO CLERGY REFERRAL NEEDED?NO PUBLIC HEALTH REFERRAL NEEDED?NO WAS THE PROVIDER NOTIFIED OF ANY PERTINENT INFO?NO REVIEW OF SYSTEMS CONSTITUTIONAL: ANY CHANGE IN YOUR MEDICAL CONDITION? YES, SINUS INFECTION AND DIFFICULTY BREATHING . CHILLS NO . FEVER NO . INFECTION: DO YOU HAVE NEW INFECTIONS? NO . DO YOU HAVE HISTORY OF MRSA? NO . MUSCULOSKELETAL: ANY NEW PATTERNS OF PAIN OR NUMBNESS? NO . GASTROENTEROLOGY: ANY NEW CHANGE IN BOWEL CONTROL? NO . GENITOURINARY: ANY NEW CHANGE IN BLADDER CONTROL? NO . IS THERE A CHANCE YOU COULD BE ? NO . HEMATOLOGY/LYMPH: DO YOU TAKE ANY BLOOD THINNERS? (FOR EXAMPLE- COUMADIN, PLAVIX, AGGRENOX, PLATEL, PRADAXA, OR XARELTO) NO . WHEN WAS YOUR LAST DOSE? DATE: TIME: . NEUROLOGY: HAVE YOU FALLEN IN THE PAST 6 MONTHS? NO . ANY NEW EXTREMITY NUMBNESS OR WEAKNESS? NO . CARDIOLOGY: DO YOU HAVE A PACEMAKER OR DEFIBRILLATOR? NO . RESPIRATORY: HAVE YOU BEEN SICK IN THE PAST WEEK? YES, COLD . FEVER YES . FLU LIKE SYMPTOMS? NO . COUGH NO . INTEGUMENTARY: DO YOU HAVE ANY RASHES OR OPEN SORES? NO . ALLERGIC/IMMUNO: ARE YOU ALLERGIC TO SHELLFISH OR IV DYE? NO . ANY NEW ALLERGIES? YES, LEVAQUIN . PSYCHIATRIC: DO YOU HAVE THOUGHTS OF HURTING YOURSELF OR SOMEONE ELSE? NO . ARE YOU ABUSED, NEGLECTED, OR IN AN UNSAFE ENVIRONMENT? NO . ENDOCRINOLOGY: ARE YOU DIABETIC? YES . OTHER: DO YOU NEED ANY PRESCRIPTIONS? YES . IF YES, PLEASE LIST: DILAUDID AND OXYCONTIN . ANY NEW PROBLEMS WITH YOUR MEDICATIONS? NO . WHEN DID YOU LAST EAT? ____ . WHEN DID YOU LAST DRINK? ____ . WHAT DID YOU LAST DRINK? ____ . NAME OF PERSON DRIVING YOU HOME? ____ . DO YOU HAVE ANY OTHER QUESTIONS OR CONCERNS NO . REVIEWED BY: PROVIDER: JULIANA JIANG . VITAL SIGNS WT 248.0 LBS, HT 62", BMI 45.35 INDEX, BP 136/80 MM HG, HR 111 /MIN, RR 20 /MIN, TEMP 97.6 F, OXYGEN SAT % 91, NA INITIALS TL 1515, REVIEWED BY: CS. EXAMINATION GENERAL EXAMINATION: LUNGS:LUNG SOUNDS ARE CLEAR. HEART:HEART RATE REGULAR. HEART:HEART RATE REGULAR. MUSCULOSKELETAL:*. MUSCULOSKELETAL:PAIN WITH PALPATION OVER LEFT KNEE. ASSESSMENTS LEFT KNEE PAIN - M25.562 (PRIMARY) CHRONIC PRESCRIPTION OPIATE USE - Z79.891 TREATMENT LEFT KNEE PAIN CONTINUE CYMBALTA CAPSULE DELAYED RELEASE PARTICLES, 60 MG, 1 CAPSULE, ORALLY, ONCE A DAY REFILL HYDROMORPHONE HCL TABLET, 4 MG, 1 TABLET, ORALLY, EVERY 8 HRS PRN MDD3, 30 DAY(S), 90, REFILLS 0 REFILL OXYCODONE HCL ER TABLET ER 12 HOUR ABUSE-DETERRENT, 15 MG, 1 TABLET, ORALLY, BID MDD2, 30 DAY(S), 60, REFILLS 0 CONTINUE AMRIX CAPSULE EXTENDED RELEASE 24 HOUR, 15 MG, 2 CAPSULE, ORALLY, ONCE A DAY NOTES: ISTOP REGISTRY REVIEWED AND DEMNOSTRATES COMPLLIANCE. BRINGS IN MEDICATIONS WHICH IS APPROPRIATE FOR WHAT WAS DISPENSED. RECENT URINE TOXICOLOGY REVIEWED. NO UNAUTHORIZED MEDICATIONS. NO ILLICIT SUBSTANCES AND PRESCRIBED MEDICATIONS WERE PRESENT. , RISKS AND BENEFITS OF NARCOTIC/OPIOD MEDICATIONS WERE REVIEWED WITH PATIENT - THIS INCLUDES BUT IS NOT LIMITED TO RISK OF DEPENDANCE/DEVELOPMENT OF ADDICTION, MOOD DISTURBANCE AND DEPRESSION, OSTEOPOROSIS, HORMONAL AND LABIDAL CHANGES, RESPIRATORY DEPRESSION AND . PATIENT IS ADVISED NOT TO DRIVE WHILE ON THESE MEDICATIONS. PROCEDURES PN WORKMANS' COMP OPINION IN YOUR OPINION, WAS THE INCIDENT THAT THE PATIENT DESCRIBED THE COMPETENT MEDICAL CAUSE OF THIS INJURY/ILLNESS? YES ARE THE PATIENT'S COMPLAINTS CONSISTENT WITH HIS/HER HISTORY OF THE INJURY/ILLNESS? YES IS THE PATIENT'S HISTORY OF THE INJURY/ILLNESS CONSISTENT WITH YOUR OBJECTIVE FINDING? YES WHAT IS THE PERCENTAGE OF TEMPORARY IMPAIRMENT? MARKED = 75% IS THE PATIENT WORKING? NO DOCTOR ON SITE: HAYDEN JENSEN MD PROCEDURE CODES FA211 ESTABILISHED PATIENT [facility] CHARGE DISPOSITION & COMMUNICATION FOLLOW UP 2 MONTHS ELECTRONICALLY SIGNED BY DEIDRE MCNULTY ON 10/20/2016 AT 05:08 PM EDT DISCLAIMER : THIS IS A VISIT SUMMARY EXTRACTED FROM THE [employer] CHART. IT IS NOT A COPY OF THE [employer] PROGRESS NOTE. ELOISA
== END ==
LOC: M PAIN 15:00
PROVIDERS: ATTEND Nurse Practitioner Family
DX: Z09 Encounter for follow-up examination after completed treatment for conditions other than malignant neoplasm (principal); G89.29 Other chronic pain; M25.562 Pain in left knee; E11.9 Type 2 diabetes mellitus without complications; J44.9 Chronic obstructive pulmonary disease, unspecified; J45.909 Unspecified asthma, uncomplicated; E03.9 Hypothyroidism, unspecified; M35.00 Sjogren syndrome, unspecified; Z79.899 Other long term (current) drug therapy; Z79.84 Long term (current) use of oral hypoglycemic drugs; Z79.51 Long term (current) use of inhaled steroids; Z79.891 Long term (current) use of opiate analgesic; Z88.1 Allergy status to other antibiotic agents; Z88.8 Allergy status to other drugs, medicaments and biological substances; Z91.09 Other allergy status, other than to drugs and biological substances

== ENCOUNTER → 2016-12-16 | Outpatient (CLI) | payer OTHER ==
--- NOTE | 2017-01-02 00:41 | ECWPNPC ---
PATIENT NAME: SARAVANAN DAUGHERTY : 1950 GENDER: FEMALE VISIT DATE: 12/16/2016 DISCHARGE DATE: 12/16/16 1420 VISIT LOCKED DATE TIME: PHYSICIAN: JULIANA COOLEY RESOURCE: JULIANA COOLEY REASON FOR APPOINTMENT 1. WC HISTORY OF PRESENT ILLNESS HISTORY OF PRESENT ILLNESS: HERE FOR ROUTINE F/U AND MANAGEMENT OF PERSISTENT LEFT KNEE PAIN. RATING PAIN VAS 7/10.REPORTS EPISODIC SHOOTING PAIN LEFT KNEE RADIATING UP LEFT THIGH.THIS IS CHRONIC PAIN RELATED TO WORK INJURY 04-29-05.CURRENTLY USING OXYCONTIN 10MG DAILY,HYDROMORPHONE 4MG Q8H PRN ,CYMBALTA 60MG QD AND AMRIX 15MG 2 TAB DAILY.DENIES ADVERSE EFFECTS OF MEDICATION.REPORTS THAT SHE HAS BEEN USING LESS DILAUDID . PAIN THE PATIENT DESCRIBES THE PAIN... THE PATIENT DESCRIBES THE PAIN... THE PATIENT DESCRIBES THE PAIN... THE PATIENT DESCRIBES THE PAIN... THE PATIENT DESCRIBES THE PAIN... 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 TWICE DAILY TAKING METFORMIN HCL 1000 MG TABLET 1 TABLET WITH MEALS ORALLY TWICE A DAY TAKING HYDROMORPHONE HCL 4 MG TABLET 1 TABLET ORALLY EVERY 8 HRS PRN MDD3 TAKING CYMBALTA 60 MG CAPSULE DELAYED RELEASE PARTICLES 1 CAPSULE ORALLY ONCE A DAY TAKING AMRIX 15 MG CAPSULE EXTENDED RELEASE 24 HOUR 2 CAPSULE ORALLY ONCE A DAY TAKING VENTOLIN HFA 108 (90 BASE) MCG/ACT AEROSOL SOLUTION 2 PUFFS NEEDED INHALATION EVERY 4 HRS TAKING RANITIDINE HCL 150 MG CAPSULE 1 CAPSULE ORALLY TWICE A DAY TAKING CLARITIN 10 MG TABLET 1 TABLET ORALLY ONCE A DAY TAKING PROBIOTIC - CAPSULE 1 CAP ORALLY DAILY TAKING LANCETS - MISCELLANEOUS 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 TWICE DAILY TAKING HYDROXYZINE HCL 50 MG TABLET 1 TABLET NEEDED ORALLY QID TAKING IPRATROPIUM-ALBUTEROL 0.5-2.5 (3) MG/3ML SOLUTION 3 ML INHALATION EVERY 6 HRS TAKING CEVIMELINE HCL 30 MG CAPSULE 1 CAPSULE ORALLY THREE TIMES A DAY TAKING OXYCODONE HCL ER 15 MG TABLET ER 12 HOUR ABUSE-DETERRENT 1 TABLET ORALLY BID MDD2 TAKING CLONAZEPAM 2 MG TABLET 1 TABLET ORALLY DAILY MDD:1 TAKING ADVAIR DISKUS 250-50 MCG/DOSE AEROSOL POWDER BREATH ACTIVATED 1 PUFF INHALATION TWICE A DAY NOT-TAKING IPRATROPIUM-ALBUTEROL 0.5-2.5 (3) MG/3ML SOLUTION 3 ML INHALATION EVERY 6 HRS NOT-TAKING CEFDINIR 300 MG CAPSULE 1 CAPSULE ORALLY EVERY 12 HRS NOT-TAKING AZITHROMYCIN (5 DAY) 250 MG TABLET DIRECTED ORALLY 2 PILLS ON DAY 1, THEN 1 PILL DAILY UNTIL GONE NOT-TAKING PREDNISONE 20 MG TABLET 2 TABLET ORALLY TWICE DAILY X 5 DAYS, THEN 1 TAB TWICE DAILY X 3 DAYS NOT-TAKING PREDNISONE 10 MG TABLET 1 TABLET ORALLY TWICE DAILY X 3 DAYS AFTER COMPLETION OF 20MG COURSE MEDICATION LIST REVIEWED AND RECONCILED WITH THE PATIENT PAST MEDICAL HISTORY COPD ASTHMA DIABETES - NIDDM HYPOTHYROIDISM 10 CM RETROCARDIAC HIATAL HERNIA SJOGREN SYNDROME ALLERGIES NICKEL: SWELLING: ALLERGY STATINS (FOR ALLERGY USE ONLY): INCREASED LFTS, MUSCULAR PAIN: ALLERGY NSAIDS: ABDOMINAL PAIN, GI ULCER: ALLERGY LEVAQUIN: FACIAL SWELLING: ALLERGY REVIEW OF SYSTEMS CONSTITUTIONAL: ANY CHANGE IN YOUR MEDICAL CONDITION? NO . CHILLS NO . FEVER NO . INFECTION: DO YOU HAVE NEW INFECTIONS? NO . DO YOU HAVE HISTORY OF MRSA? NO . MUSCULOSKELETAL: ANY NEW PATTERNS OF PAIN OR NUMBNESS? NO . GASTROENTEROLOGY: ANY NEW CHANGE IN BOWEL CONTROL? NO . GENITOURINARY: ANY NEW CHANGE IN BLADDER CONTROL? NO . IS THERE A CHANCE YOU COULD BE ? NO . HEMATOLOGY/LYMPH: DO YOU TAKE ANY BLOOD THINNERS? (FOR EXAMPLE- COUMADIN, PLAVIX, AGGRENOX, PLATEL, PRADAXA, OR XARELTO) NO . WHEN WAS YOUR LAST DOSE? DATE: TIME: . NEUROLOGY: HAVE YOU FALLEN IN THE PAST 6 MONTHS? YES, PT STATES LEFT LEG IS USUALLY NUMB UPON AWAKENING, SO WHEN PT RISES FROM BED SHE FALLS TO FLOOR, SOMETIMES WALKS INTO G[place]Z. PT STATES THIS HAPPENS ON A WEEKLY BASIS. . ANY NEW EXTREMITY NUMBNESS OR WEAKNESS? NO . CARDIOLOGY: DO YOU HAVE A PACEMAKER OR DEFIBRILLATOR? NO . RESPIRATORY: HAVE YOU BEEN SICK IN THE PAST WEEK? YES, COUGH COLD . FEVER NO . FLU LIKE SYMPTOMS? NO . COUGH NO . INTEGUMENTARY: DO YOU HAVE ANY RASHES OR OPEN SORES? NO . ALLERGIC/IMMUNO: ARE YOU ALLERGIC TO SHELLFISH OR IV DYE? NO . ANY NEW ALLERGIES? NO . PSYCHIATRIC: DO YOU HAVE THOUGHTS OF HURTING YOURSELF OR SOMEONE ELSE? NO . ARE YOU ABUSED, NEGLECTED, OR IN AN UNSAFE ENVIRONMENT? NO . ENDOCRINOLOGY: ARE YOU DIABETIC? NO . OTHER: DO YOU NEED ANY PRESCRIPTIONS? YES, OXYCONTIN, DILAUDID, AMERIX . IF YES, PLEASE LIST: ____ . ANY NEW PROBLEMS WITH YOUR MEDICATIONS? NO . WHEN DID YOU LAST EAT? ____ . WHEN DID YOU LAST DRINK? ____ . WHAT DID YOU LAST DRINK? ____ . NAME OF PERSON DRIVING YOU HOME? ____ . DO YOU HAVE ANY OTHER QUESTIONS OR CONCERNS NO . REVIEWED BY: PROVIDER: JULIANA JIANG . VITAL SIGNS WT 254.8 LBS, HT 62", BMI 46.60 INDEX, BP 119/79 MM HG, HR 116 /MIN, RR 20 /MIN, TEMP 99.0 F, OXYGEN SAT % 93%, SAFE IN ENV? (Y/N) Y, NA INITIALS TL 1336, REVIEWED BY: EMTEMP 99.0, PT STATED SHE IS FEELING SLIGHLY ILL RECENTLY- TL. EXAMINATION GENERAL EXAMINATION: LUNGS:LUNG SOUNDS ARE CLEAR. HEART:HEART RATE REGULAR. HEART:HEART RATE REGULAR. MUSCULOSKELETAL:*. MUSCULOSKELETAL:PAIN WITH PALPATION OVER LEFT KNEE. ASSESSMENTS LEFT KNEE PAIN - M25.562 (PRIMARY) CHRONIC PRESCRIPTION OPIATE USE - Z79.891 TREATMENT LEFT KNEE PAIN REFILL HYDROMORPHONE HCL TABLET, 4 MG, 1 TABLET, ORALLY, EVERY 8 HRS PRN MDD3, 30 DAY(S), 90, REFILLS 0 CONTINUE CYMBALTA CAPSULE DELAYED RELEASE PARTICLES, 60 MG, 1 CAPSULE, ORALLY, ONCE A DAY REFILL AMRIX CAPSULE EXTENDED RELEASE 24 HOUR, 15 MG, 2 CAPSULE, ORALLY, ONCE A DAY, 30 DAY(S), 60 CAPSULE, REFILLS 2 REFILL OXYCODONE HCL ER TABLET ER 12 HOUR ABUSE-DETERRENT, 15 MG, 1 TABLET, ORALLY, BID MDD2, 30 DAY(S), 60, REFILLS 0 PROCEDURES PN WORKMANS' COMP OPINION IN YOUR OPINION, WAS THE INCIDENT THAT THE PATIENT DESCRIBED THE COMPETENT MEDICAL CAUSE OF THIS INJURY/ILLNESS? YES ARE THE PATIENT'S COMPLAINTS CONSISTENT WITH HIS/HER HISTORY OF THE INJURY/ILLNESS? YES IS THE PATIENT'S HISTORY OF THE INJURY/ILLNESS CONSISTENT WITH YOUR OBJECTIVE FINDING? YES WHAT IS THE PERCENTAGE OF TEMPORARY IMPAIRMENT? MODERATE TO MARKED = 66.7% IS THE PATIENT WORKING? NO DOCTOR ON SITE: HAYDEN JENSEN MD DISPOSITION & COMMUNICATION FOLLOW UP 2 MONTHS ELECTRONICALLY SIGNED BY DEIDRE MCNULTY ON 12/30/2016 AT 05:33 PM EDT DISCLAIMER : THIS IS A VISIT SUMMARY EXTRACTED FROM THE [email or web address] CHART. IT IS NOT A COPY OF THE [email or web address] PROGRESS NOTE. ELOISA
== END ==
LOC: M PAIN 13:30
PROVIDERS: ATTEND Nurse Practitioner Family
DX: G89.29 Other chronic pain (principal); M25.562 Pain in left knee; J44.9 Chronic obstructive pulmonary disease, unspecified; E11.9 Type 2 diabetes mellitus without complications; E03.9 Hypothyroidism, unspecified; K44.9 Diaphragmatic hernia without obstruction or gangrene; G25.81 Restless legs syndrome; E66.9 Obesity, unspecified; F41.9 Anxiety disorder, unspecified; G47.33 Obstructive sleep apnea (adult) (pediatric); L23.0 Allergic contact dermatitis due to metals; Z88.6 Allergy status to analgesic agent; Z88.8 Allergy status to other drugs, medicaments and biological substances; Z68.42 Body mass index [BMI] 45.0-49.9, adult; Z79.84 Long term (current) use of oral hypoglycemic drugs; Z79.891 Long term (current) use of opiate analgesic; Z79.899 Other long term (current) drug therapy

== ENCOUNTER → 2017-02-05 | Outpatient (CLI) | payer BC ==
[~2017-02-05] MED LIST changes: +ADV250INH INH; -AMRI15CA10 PO; +AMRI15CA17 PO; +BACITAB PO; +BENZ100C5; +BENZ100C5 PO; +CEFD1CAP8 PO; +CEVI1CAP; +CEVI1CAP PO; -DILA8TAB4 PO; +DILA8TAB5 PO; +GARC500T PO; -HYDR-4274 PO; +HYDR4TAB; +HYDR4TAB PO; +HYDR50TA70 PO; +IPRASOL4 INH; +LEVA1TAB2 PO; -LEVA500T PO; -METF1000 PO; +METF10004 PO; +MIDN1CHW PO; +ONDA4TAB6 PO; +PRED10TA2 PO; +REQU1TAB14 PO; +ROPI0.25 PO; +SUMA25TA3 PO; +SYNT25TA PO; +VENTAER INH
--- NOTE | 2017-02-19 23:53 | ECWPNPC ---
PATIENT NAME: SARAVANAN DAUGHERTY : 1950 GENDER: FEMALE VISIT DATE: 02/05/2017 DISCHARGE DATE: 02/05/17 1219 VISIT LOCKED DATE TIME: PHYSICIAN: JULIANA COOLEY RESOURCE: JULIANA COOLEY HISTORY OF PRESENT ILLNESS HISTORY OF PRESENT ILLNESS: HERE FOR ROUTINE F/U AND MANAGEMENT OF PERSISTENT LEFT KNEE PAIN. RATING PAIN VAS 6/10.REPORTS EPISODIC SHOOTING PAIN LEFT KNEE RADIATING UP LEFT THIGH.THIS IS CHRONIC PAIN RELATED TO WORK INJURY 04-29-05.CURRENTLY USING OXYCONTIN 10MG DAILY,HYDROMORPHONE 4MG Q8H PRN ,CYMBALTA 60MG QD AND AMRIX 15MG 2 TAB DAILY.DENIES ADVERSE EFFECTS OF MEDICATION.REPORTS THAT SHE HAS BEEN USING LESS DILAUDID . PAIN THE PATIENT DESCRIBES THE PAIN... THE PATIENT DESCRIBES THE PAIN... THE PATIENT DESCRIBES THE PAIN... THE PATIENT DESCRIBES THE PAIN... THE PATIENT DESCRIBES THE PAIN... THE PATIENT DESCRIBES THE PAIN... 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 TWICE DAILY TAKING METFORMIN HCL 1000 MG TABLET 1 TABLET WITH MEALS ORALLY TWICE A DAY TAKING VENTOLIN HFA 108 (90 BASE) MCG/ACT AEROSOL SOLUTION 2 PUFFS NEEDED INHALATION EVERY 4 HRS TAKING RANITIDINE HCL 150 MG CAPSULE 1 CAPSULE ORALLY TWICE A DAY TAKING CLARITIN 10 MG TABLET 1 TABLET ORALLY ONCE A DAY TAKING PROBIOTIC - CAPSULE 1 CAP ORALLY DAILY TAKING LANCETS - MISCELLANEOUS 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 TWICE DAILY TAKING IPRATROPIUM-ALBUTEROL 0.5-2.5 (3) MG/3ML SOLUTION 3 ML INHALATION EVERY 6 HRS TAKING ADVAIR DISKUS 250-50 MCG/DOSE AEROSOL POWDER BREATH ACTIVATED 1 PUFF INHALATION TWICE A DAY TAKING HYDROXYZINE HCL 50 MG TABLET 1 TABLET NEEDED ORALLY QID TAKING HYDROMORPHONE HCL 4 MG TABLET 1 TABLET ORALLY EVERY 8 HRS PRN MDD3 TAKING OXYCODONE HCL ER 15 MG TABLET ER 12 HOUR ABUSE-DETERRENT 1 TABLET ORALLY BID MDD2 TAKING CLONAZEPAM 1 MG TABLET 1.5 TABLETS ORALLY DAILY NOT-TAKING CLONAZEPAM 2 MG TABLET 1 TABLET ORALLY DAILY MDD:1 NOT-TAKING CEVIMELINE HCL 30 MG CAPSULE 1 CAPSULE ORALLY THREE TIMES A DAY NOT-TAKING CLONAZEPAM 1 MG TABLET 1 TABLET ORALLY DAILY NOT-TAKING CLONAZEPAM 0.5 MG TABLET 1 TABLET ORALLY DAILY NOT-TAKING IPRATROPIUM-ALBUTEROL 0.5-2.5 (3) MG/3ML SOLUTION 3 ML INHALATION EVERY 6 HRS NOT-TAKING CEFDINIR 300 MG CAPSULE 1 CAPSULE ORALLY EVERY 12 HRS NOT-TAKING AZITHROMYCIN (5 DAY) 250 MG TABLET DIRECTED ORALLY 2 PILLS ON DAY 1, THEN 1 PILL DAILY UNTIL GONE NOT-TAKING PREDNISONE 20 MG TABLET 2 TABLET ORALLY TWICE DAILY X 5 DAYS, THEN 1 TAB TWICE DAILY X 3 DAYS NOT-TAKING PREDNISONE 10 MG TABLET 1 TABLET ORALLY TWICE DAILY X 3 DAYS AFTER COMPLETION OF 20MG COURSE MEDICATION LIST REVIEWED AND RECONCILED WITH THE PATIENT PAST MEDICAL HISTORY COPD ASTHMA DIABETES - NIDDM HYPOTHYROIDISM 10 CM RETROCARDIAC HIATAL HERNIA SJOGREN SYNDROME ALLERGIES NICKEL: SWELLING: ALLERGY STATINS (FOR ALLERGY USE ONLY): INCREASED LFTS, MUSCULAR PAIN: ALLERGY NSAIDS: ABDOMINAL PAIN, GI ULCER: ALLERGY LEVAQUIN: FACIAL SWELLING: ALLERGY SOCIAL HISTORY GENERAL: TOBACCO USE ARE YOU A:FORMER SMOKER HOW LONG HAS IT BEEN SINCE YOU LAST SMOKED?5-10 YEARS BMI CARE GOAL FOLLOW-UP ABOVE NORMAL BMI FOLLOW-UPLIFEYLE EDUCATION REGARDING DIET ALCOHOL SCREENING DID YOU HAVE A DRINK CONTAINING ALCOHOL IN THE PAST YEAR?NO POINTS0 INTERPRETATIONNEGATIVE RECREATIONAL DRUG USE DRUG USE?NO CAFFEINE CAFFEINE USE?YES SEXUAL HX HAD SEX IN THE LAST 12 MONTHS (VAGINAL, ORAL, OR ANAL)?YES WITHMEN ONLY OCCUPATION: UNEMPLOYED. DIET: REGULAR. EXERCISE: NO REGULAR EXERCISE. MARITAL STATUS: . OTHERS AT HOME: SPOUSE. PETS: 2-CATS. VOODOO [id number] NONE LANGUAGE LANGUAGES SPOKEN:TELUGU LEARNING BARRIERS / SPECIAL NEEDS CHANGE FROM LAST VISIT?YES BARRIERS TO LEARNING?NO HEARING IMPAIRED?NO VISION IMPAIRED?YES COGNITIVELY IMPAIRED?NO :CORRECTIVE LENSES READINESS TO LEARN?YES LEARNING PREFERENCES?NO LEARNING CAPABILITIES PRESENT?YES EMOTIONAL BARRIERS?NO SPECIAL DEVICES?NO [employer] SUPERVISOR NEEDED?NO NEW PATIENT PAIN DIARY TODAY'S VISIT NOTES, FROM 0-10, WHAT LEVEL IS YOUR PAIN TODAY? 0. PAIN CLINIC PFS, CLERGY, PUBLIC HEALTH REFERRALS PFS REFERRAL NEEDED?NO CLERGY REFERRAL NEEDED?NO PUBLIC HEALTH REFERRAL NEEDED?NO HAS THE PATIENT BEEN EDUCATED REGARDING HIS/HER PLAN OF CARE?YES HAS THE PATIENT BEEN EDUCATED REGARDING PAIN, THE RISK FOR PAIN, THE IMPORTANCE OF EFFECTIVE PAIN MANAGEMENT, AND THE PAIN ASSESSMENT PROCESS?YES REVIEW OF SYSTEMS REVIEWED BY: PROVIDER: JULIANA JIANG . CONSTITUTIONAL: ANY CHANGE IN YOUR MEDICAL CONDITION? YES, MEMORY LOSS, LOSING TRAIN OF THOUGHT AND DIZZY SPELLS. PRIMARY DOCTOR AWARE . CHILLS NO . FEVER NO . INFECTION: DO YOU HAVE NEW INFECTIONS? NO . DO YOU HAVE HISTORY OF MRSA? NO . MUSCULOSKELETAL: ANY NEW PATTERNS OF PAIN OR NUMBNESS? YES, LEFT KNEE KEEPS &QUOT;BUCKLING&QUOT; . GASTROENTEROLOGY: ANY NEW CHANGE IN BOWEL CONTROL? NO . GENITOURINARY: ANY NEW CHANGE IN BLADDER CONTROL? NO . IS THERE A CHANCE YOU COULD BE ? NO . HEMATOLOGY/LYMPH: DO YOU TAKE ANY BLOOD THINNERS? (FOR EXAMPLE- COUMADIN, PLAVIX, AGGRENOX, PLATEL, PRADAXA, OR XARELTO) NO . WHEN WAS YOUR LAST DOSE? DATE: TIME: . NEUROLOGY: HAVE YOU FALLEN IN THE PAST 6 MONTHS? NO . ANY NEW EXTREMITY NUMBNESS OR WEAKNESS? NO . CARDIOLOGY: DO YOU HAVE A PACEMAKER OR DEFIBRILLATOR? NO . RESPIRATORY: HAVE YOU BEEN SICK IN THE PAST WEEK? NO . FEVER NO . FLU LIKE SYMPTOMS? NO . COUGH NO . INTEGUMENTARY: DO YOU HAVE ANY RASHES OR OPEN SORES? NO . ALLERGIC/IMMUNO: ARE YOU ALLERGIC TO SHELLFISH OR IV DYE? NO . ANY NEW ALLERGIES? NO . PSYCHIATRIC: DO YOU HAVE THOUGHTS OF HURTING YOURSELF OR SOMEONE ELSE? NO . ARE YOU ABUSED, NEGLECTED, OR IN AN UNSAFE ENVIRONMENT? NO . ENDOCRINOLOGY: ARE YOU DIABETIC? YES . OTHER: DO YOU NEED ANY PRESCRIPTIONS? YES . IF YES, PLEASE LIST: HYDROMORPHONE, OXYCONTIN, CYMBALTA AND AMRIX . ANY NEW PROBLEMS WITH YOUR MEDICATIONS? NO . WHEN DID YOU LAST EAT? ____ . WHEN DID YOU LAST DRINK? ____ . WHAT DID YOU LAST DRINK? ____ . NAME OF PERSON DRIVING YOU HOME? ____ . DO YOU HAVE ANY OTHER QUESTIONS OR CONCERNS NO . VITAL SIGNS WT 251.8 LBS, HT 62", BMI 46.05 INDEX, BP 120/78 MM HG, HR 120 /MIN, RR 20 /MIN, TEMP 97.9 F, OXYGEN SAT % 92%, NA INITIALS SC 11:39, REVIEWED BY: MAGDALENA. EXAMINATION GENERAL EXAMINATION: LUNGS:LUNG SOUNDS ARE CLEAR. HEART:HEART RATE REGULAR. HEART:HEART RATE REGULAR. MUSCULOSKELETAL:*. MUSCULOSKELETAL:PAIN WITH PALPATION OVER LEFT KNEE. ASSESSMENTS LEFT KNEE PAIN - M25.562 (PRIMARY) CHRONIC PRESCRIPTION OPIATE USE - Z79.891 TREATMENT LEFT KNEE PAIN REFILL AMRIX CAPSULE EXTENDED RELEASE 24 HOUR, 15 MG, 2 CAPSULE, ORALLY, ONCE A DAY, 30 DAY(S), 60 CAPSULE, REFILLS 2 REFILL CYMBALTA CAPSULE DELAYED RELEASE PARTICLES, 60 MG, 1 CAPSULE, ORALLY, ONCE A DAY, 30 DAY(S), 30 CAPSULE, REFILLS 2 REFILL HYDROMORPHONE HCL TABLET, 4 MG, 1 TABLET, ORALLY, EVERY 8 HRS PRN MDD3, 30 DAY(S), 90, REFILLS 0 REFILL OXYCODONE HCL ER TABLET ER 12 HOUR ABUSE-DETERRENT, 15 MG, 1 TABLET, ORALLY, BID MDD2, 30 DAY(S), 60, REFILLS 0 NOTES: ISTOP REGISTRY REVIEWED AND DEMNOSTRATES COMPLLIANCE. BRINGS IN MEDICATIONS WHICH IS APPROPRIATE FOR WHAT WAS DISPENSED. RECENT URINE TOXICOLOGY REVIEWED. NO UNAUTHORIZED MEDICATIONS. NO ILLICIT SUBSTANCES AND PRESCRIBED MEDICATIONS WERE PRESENT. URINE TOX TODAY, RISKS AND BENEFITS OF NARCOTIC/OPIOD MEDICATIONS WERE REVIEWED WITH PATIENT - THIS INCLUDES BUT IS NOT LIMITED TO RISK OF DEPENDANCE/DEVELOPMENT OF ADDICTION, MOOD DISTURBANCE AND DEPRESSION, OSTEOPOROSIS, HORMONAL AND LABIDAL CHANGES, RESPIRATORY DEPRESSION AND . PATIENT IS ADVISED NOT TO DRIVE WHILE ON THESE MEDICATIONS. PROCEDURES PN WORKMANS' COMP OPINION IN YOUR OPINION, WAS THE INCIDENT THAT THE PATIENT DESCRIBED THE COMPETENT MEDICAL CAUSE OF THIS INJURY/ILLNESS? YES ARE THE PATIENT'S COMPLAINTS CONSISTENT WITH HIS/HER HISTORY OF THE INJURY/ILLNESS? YES IS THE PATIENT'S HISTORY OF THE INJURY/ILLNESS CONSISTENT WITH YOUR OBJECTIVE FINDING? YES WHAT IS THE PERCENTAGE OF TEMPORARY IMPAIRMENT? MODERATE TO MARKED = 66.7% IS THE PATIENT WORKING? NO DOCTOR ON SITE: HAYDEN JENSEN MD PROCEDURE CODES FA211 ESTABILISHED PATIENT [facility] CHARGE DISPOSITION & COMMUNICATION FOLLOW UP 3 MONTHS ELECTRONICALLY SIGNED BY DEIDRE MCNULTY ON 02/19/2017 AT 11:50 AM EDT DISCLAIMER : THIS IS A VISIT SUMMARY EXTRACTED FROM THE [employer] CHART. IT IS NOT A COPY OF THE [employer] PROGRESS NOTE. ELOISA
== END ==
LOC: M PAIN 11:00
PROVIDERS: ATTEND Nurse Practitioner Family
DX: G89.29 Other chronic pain (principal); M25.562 Pain in left knee; J44.9 Chronic obstructive pulmonary disease, unspecified; E11.9 Type 2 diabetes mellitus without complications; E03.9 Hypothyroidism, unspecified; K44.9 Diaphragmatic hernia without obstruction or gangrene; M35.00 Sjogren syndrome, unspecified; R41.3 Other amnesia; L23.0 Allergic contact dermatitis due to metals; Z88.6 Allergy status to analgesic agent; Z88.8 Allergy status to other drugs, medicaments and biological substances; Z79.84 Long term (current) use of oral hypoglycemic drugs; Z79.891 Long term (current) use of opiate analgesic; Z79.899 Other long term (current) drug therapy; Z87.891 Personal history of nicotine dependence

== ENCOUNTER → 2017-02-13 | Outpatient (REF) | payer BC ==
[2017-02-13 18:56] LABS: HEPATITIS B SURFACE ANTIBODY POSITIVE (POSITIVE)
[2017-02-13 18:58] LABS: ANION GAP 7 MEQ/L (8-16); BLOOD UREA NITROGEN 11 MG/DL (7-18); CALCIUM LEVEL 8.7 MG/DL (8.8-10.2); CARBON DIOXIDE LEVEL 31 MEQ/L (21-32); CHLORIDE LEVEL 101 MEQ/L (98-107); CREATININE FOR GFR 0.82 MG/DL (0.55-1.02); GLOMERULAR FILTRATION RATE > 60.0 (>45); GLUCOSE, FASTING 193 MG/DL (80-110); POTASSIUM SERUM 4.5 MEQ/L (3.5-5.1); SODIUM LEVEL 139 MEQ/L (136-145)
== END ==
LOC: M SFHCPLAZ 15:29
DX: Z00.00 Encounter for general adult medical examination without abnormal findings (principal); E11.9 Type 2 diabetes mellitus without complications; E03.9 Hypothyroidism, unspecified

== ENCOUNTER → 2017-04-21 | Outpatient (REF) | payer BC | LOC: M SFHCPLAZ 12:13 | PROVIDERS: ATTEND Family Medicine | DX: J45.901 Unspecified asthma with (acute) exacerbation (principal) ==

== ENCOUNTER → 2017-05-13 | Outpatient (CLI) | payer BC ==
[~2017-05-13] MED LIST changes: +ISOVUE-370 76% 100ML VIAL (Q9967) As Ordered ONE
[2017-05-13 15:19] LABS: ALBUMIN 2.7 GM/DL (3.2-5.2); ANION GAP 5 MEQ/L (8-16); BLOOD UREA NITROGEN 11 MG/DL (7-18); CALCIUM LEVEL 8.2 MG/DL (8.8-10.2); CARBON DIOXIDE LEVEL 36 MEQ/L (21-32); CHLORIDE LEVEL 96 MEQ/L (98-107); CREATININE FOR GFR 0.85 MG/DL (0.55-1.02); GLOMERULAR FILTRATION RATE > 60.0 (>45); GLUCOSE, FASTING 266 MG/DL (80-110); PHOSPHORUS LEVEL 3.5 MG/DL (2.5-4.9); SODIUM LEVEL 137 MEQ/L (136-145)
--- NOTE | 2017-05-13 16:00 | REP ---
CT of the chest without IV contrast: Comparison is the portable plain film study dated 08/13/2016. There is an infiltrate in the left lower lobe. There is atelectasis inferiorly in the lingula. There is a large hiatal hernia containing half to to thirds of the stomach. There is compression atelectasis of the lung adjacent to the hiatal hernia. The lung siddiqi are otherwise clear. There is no mediastinal or hilar adenopathy. No axillary adenopathy. The thoracic aorta is. Cardiac size is normal. There are bilateral epicardial fat pads. The visualized upper abdominal contents are unremarkable. Impression: Left lower lobe infiltrate. Atelectasis in the lingula inferiorly. Large retrocardiac hiatal hernia with compression atelectasis of the lung adjacent to the hiatal hernia. No pleural effusion. Cardiac size normal. Bilateral epicardial fat pads. Signed by Paul Tucker MD 05/13/2017 03:52 P
== END ==
LOC: M LAB 14:11 → M RAD 14:11
PROVIDERS: ATTEND Student in an Organized Health Care Education/Training Program
DX: R06.02 Shortness of breath (principal)
CPT/HCPCS: 71260; 80069; Q9967

== ENCOUNTER 2017-05-25 17:56 | Inpatient (IN) | payer MEDICARE, BC ==
[~2017-05-25] VITALS: Ht 160 cm; Wt 104.1 kg
[~2017-05-25 17:56] MED LIST changes: -ADV250INH INH; -BACITAB PO; -BENZ100C5; -BENZ100C5 PO; -CEFD1CAP8 PO; -CEVI1CAP; -CEVI1CAP PO; -GARC500T PO; -HYDR4TAB; -HYDR4TAB PO; -IPRASOL4 INH; -ISOVUE-370 76% 100ML VIAL (Q9967) As Ordered ONE; -MIDN1CHW PO; -ONDA4TAB6 PO; -PRED10TA2 PO; -REQU1TAB14 PO; -ROPI0.25 PO; -SUMA25TA3 PO; -SYNT25TA PO; -VENTAER INH
[2017-05-25] MEDS ORDERED: CEVI1CAP (18:20)
[2017-05-25] MEDS ORDERED: ONDA4TAB6 PO ×2 (18:20→22:30)
[2017-05-25] MEDS ORDERED: ROPI0.25 PO (18:20)
[2017-05-25] MEDS ORDERED: SUMA25TA3 PO ×2 (18:20→22:30)
[2017-05-25] MEDS ORDERED: HYDR4TAB (18:20)
[2017-05-25] MEDS ORDERED: BENZ100C5 (18:20)
[2017-05-25] MEDS ORDERED: ADV250INH INH ×2 (18:20→22:30)
[2017-05-25 18:45] LABS: BASO % 0.3 % (0.0-1.0); EOS # 0.1 10^3/uL (0.0-0.50); EOS % 1.2 % (0.0-3.0); IMMATURE GRANULOCYTE % 1.7 % (0-0); LYMPH # 1.8 10^3/uL (1.5-4.5); LYMPH % 21.4 % (24.0-44.0); MEAN CORPUSCULAR HEMOGLOBIN 25.1 pg (27.0-33.0); MEAN CORPUSCULAR HGB CONC 31.1 g/dl (32.0-36.5); MEAN CORPUSCULAR VOLUME 80.4 fl (80.0-96.0); MONO # 0.7 10^3/uL (0.0-0.8); MONO % 7.8 % (0.0-5.0); NEUTROPHILS # 5.8 10^3/uL (1.8-7.7); NEUTROPHILS % 67.6 % (36.0-66.0); PLATELET COUNT, AUTOMATED 280 10^3/uL (150-450); RED CELL DISTRIBUTION WIDTH 17.1 % (11.5-14.5); WHITE BLOOD COUNT 8.6 10^3/uL (4.0-10.0)
--- NOTE | 2017-05-25 19:20 | REP ---
PA and lateral chest: Comparisons are the chest CT of 05/13/2017 and 08/13 2016. On the comparison CT there was a left lower lobe infiltrate and atelectasis inferiorly in the lingula. These findings are unchanged on the PA and lateral views today. On the comparison CT there was a large hiatal hernia. This is also unchanged. There is minor discoid atelectasis inferiorly in the right lung. Remainder the lung siddiqi are clear. Cardiac size appears enlarged, however, on the comparison CT there are large bilateral epicardial fat pads. The bakari, mediastinum, bony thorax are unremarkable. Impression: No change from the comparison CT of 05/13/2017 except for minor discoid atelectasis inferiorly in the right lung. Signed by Paul Tucker MD 05/25/2017 07:12 P
[2017-05-25 19:28] LABS: ANION GAP 8 MEQ/L (8-16); BLOOD UREA NITROGEN 6 MG/DL (7-18); CALCIUM LEVEL 7.4 MG/DL (8.8-10.2); CARBON DIOXIDE LEVEL 31 MEQ/L (21-32); CHLORIDE LEVEL 102 MEQ/L (98-107); CREATININE FOR GFR 0.75 MG/DL (0.55-1.02); GLOMERULAR FILTRATION RATE > 60.0 (>45); GLUCOSE, FASTING 157 MG/DL (80-110); POTASSIUM SERUM 4.2 MEQ/L (3.5-5.1); SODIUM LEVEL 141 MEQ/L (136-145)
[2017-05-25] MEDS ORDERED: IPRATROPIUM 0.5MG/ALBUTEROL 2.5MG INH SOL UD 3ML (DUONEB)(J7620) NEB ONE (19:30)
[2017-05-25] MEDS ORDERED: FUROSEMIDE 40 MG/4 ML VIAL (J1940) IV ONE (20:45)
[2017-05-25] MEDS ORDERED: IPRATROPIUM 0.5MG/ALBUTEROL 2.5MG INH SOL UD 3ML (DUONEB)(J7620) NEB PRN (22:15)
[2017-05-25] MEDS ORDERED: BACITAB PO (22:30)
[2017-05-25] MEDS ORDERED: MIDN1CHW PO (22:30)
[2017-05-25] MEDS ORDERED: REQU1TAB14 PO (22:30)
[2017-05-25] MEDS ORDERED: CYMB60CA3 PO (22:30)
[2017-05-25] MEDS ORDERED: AMRI15CA17 PO (22:30)
[2017-05-25] MEDS ORDERED: CEVI1CAP PO (22:30)
[2017-05-25] MEDS ORDERED: GARC500T PO (22:30)
[2017-05-25] MEDS ORDERED: BENZ100C5 PO (22:30)
[2017-05-25] MEDS ORDERED: HYDR4TAB PO (22:30)
[2017-05-25] MEDS ORDERED: SYNT25TA PO (22:30)
[2017-05-25] MEDS ORDERED: HYDR50TA70 PO (22:30)
[2017-05-25] MEDS ORDERED: OXYC15TA66 PO (22:30)
[2017-05-25] MEDS ORDERED: IPRASOL4 INH (22:30)
[2017-05-25] MEDS ORDERED: METF10004 PO (22:30)
[2017-05-25] MEDS ORDERED: VENTAER INH (22:30)
[2017-05-25] MEDS ORDERED: NS 1,000 ML IV ONE (23:45)
[2017-05-25] MEDS ORDERED: MORPHINE 4 MG/ML 1ML SYRINGE IV ONE (23:45)
[2017-05-26] MEDS ORDERED: GLUCAGON FOR INJ 1 MG VIAL (J1610) SC PRN
[2017-05-26] MEDS ORDERED: hydrALAZINE INJ 20 MG/ML VIAL IV PRN
[2017-05-26] MEDS ORDERED: ONDANSETRON 4 MG ORAL DISINTEGRATING TAB (S0181) PO PRN
[2017-05-26] MEDS ORDERED: AZITHROMYCIN INJ 500 MG, VIAL MATE ADAPTER 1 EACH in D5W 250 ML IV SCH ×3
[2017-05-26] MEDS ORDERED: DEXTROSE 50% 50 ML SYRINGE IV PRN
[2017-05-26] MEDS ORDERED: SUMAtriptan SUCCINATE 25 MG TAB PO PRN
[2017-05-26] MEDS ORDERED: GLUCOSE 4 GM CHEW TABLET PO PRN
[2017-05-26] MEDS ORDERED: hydrOXYzine 50 MG TAB PO PRN
[2017-05-26] MEDS ORDERED: ACETAMINOPHEN TAB 650MG DOSE (2X325MG) PO PRN
[2017-05-26] MEDS ORDERED: ISOVUE-370 76% 100ML VIAL (Q9967) As Ordered ONE (00:16)
[2017-05-26] MEDS ORDERED: VANCOMYCIN HCL 1,000 MG, VIAL MATE ADAPTER 1 EACH in D5W 250 ML IV ONE (02:00)
[2017-05-26] MEDS: IPRATROPIUM 0.5MG/ALBUTEROL 2.5MG INH SOL UD 3ML (DUONEB)(J7620) NEB SCH ×4 (02:00→19:17)
--- NOTE | 2017-05-26 02:00 | REPUSA ---
CLINICAL HISTORY: Dyspnea, exclude PE. TECHNIQUE: Multiple incremental axial, coronal and oblique images are obtained from the thoracic inle t to the upper abdomen. Intravenous contrast material was administered as per pulmonary embolism prot ocol. COMMENTS: Moderate sliding hiatal hernia. There is bilateral peribronchial interstitial thickening suggestive of bronchitis. Centrilobular nodules, probably bronchitis or airway disease. Subsegmental atelectatic airspace disease in the lower lobes with associated groundglass densities. There is excellent opacification of pulmonary arterial system without evidence for pulmonary embolism . Aorta is of normal caliber without evidence for dissection or aneurysm. There is no evidence of pleural or parenchymal mass. There are no pleural effusions. There is no evid ence of hilar or mediastinal lymphadenopathy. The heart and great vessels are within normal limits. Images of the upper abdomen demonstrate no evidence of adrenal mass. The bony structures are free of lytic or blastic lesions. Multilevel degenerative changes are seen in volving the visualized thoracolumbar spine. Scattered calcifications are seen involving the aorta and major branches compatible with atherosclero sis. Moderate hepatomegaly with fatty liver infiltration. Mild splenomegaly. IMPRESSION: No evidence for pulmonary embolism. Sliding hiatal hernia. Bronchitis. Bronchitis. Subsegmental atelectatic airspace disease in the lower lobes. Associated groundglass densities. Pleas e evaluate to exclude infection. Thank you for your kind referral of this patient.
[2017-05-26 02:04] VITALS: BP 135/63
[2017-05-26] MEDS: methylPREDNISolone INJ 125 MG/2 ML VIAL (J2930) IV SCH ×2 (02:15→12:30)
[2017-05-26] MEDS ORDERED: SLF 3 ML SYR IV PRN (02:15)
[2017-05-26] MEDS: CEFEPIME HCL 1 GM in D5W 50 ML IV SCH ×2 (03:42→13:53)
[2017-05-26 04:00] VITALS: BP 115/56
[2017-05-26 04:07] LABS: MEAN CORPUSCULAR HEMOGLOBIN 25.4 pg (27.0-33.0); MEAN CORPUSCULAR HGB CONC 31.1 g/dl (32.0-36.5); MEAN CORPUSCULAR VOLUME 81.7 fl (80.0-96.0); RED CELL DISTRIBUTION WIDTH 17.4 % (11.5-14.5); WHITE BLOOD COUNT 8.9 10^3/uL (4.0-10.0)
--- NOTE | 2017-05-26 04:45 | PHACANCOPD ---
PHARMACY VANCOMYCIN DOSING Pt Demographics Demographics Patient Age:66 , Weight:105.200 , Gender: female Adjusted Body Weight Date: 05/26/17, Adjusted Body Weight: [72.96] Kg Vancomycin Vancomycin indication: PNEUMONIA Vancomycin Target Ranges: 15-20 mcg/ml Vancomycin Load Y/N: No Load Dose Date Time Vancomycin Load Dose: Date: Time: Vancomycin Dose Date: 05/26/17. Current Vancomycin Dose: [1 GM Q12H] Intermittent Dosing?: No Labs Labs Laboratory Tests 05/25/17 18:32 Red Blood Count 4.91, Mean Corpuscular Volume 80.4, Mean Corpuscular Hemoglobin 25.1 L, Mean Corpuscular Hemoglobin Concent 31.1 L, Red Cell Distribution Width 17.1 H, Neutrophils (%) (Auto) 67.6 H, Lymphocytes (%) (Auto) 21.4 L, Monocytes (%) (Auto) 7.8 H, Eosinophils (%) (Auto) 1.2, Basophils (%) (Auto) 0.3, Neutrophils # (Auto) 5.8, Lymphocytes # (Auto) 1.8, Monocytes # (Auto) 0.7, Eosinophils # (Auto) 0.1, Basophils # (Auto) 0.0, Calcium Level 7.4 L 05/26/17 03:49 Red Blood Count 4.60, Mean Corpuscular Volume 81.7, Mean Corpuscular Hemoglobin 25.4 L, Mean Corpuscular Hemoglobin Concent 31.1 L, Red Cell Distribution Width 17.4 H Micro Microbiology 05/25/17 Blood Culture, Received Pending 05/25/17 Blood Culture, Received Pending Creatinine Clearance Date:05/26/17. Creatinine Clearance: [87.3]CALCULATED. Pending Labs Vancomycin triugh due 05/27@1200 Assessment and Plan Maintaining Current Dose?: Yes Reason for dose change: No Dose Change Pharmacist Note Pharmacist Note Date: 05/26/17. Pharmacist note:66 YOF,63",103.8kg(abw=72.96 kg),SCR=0.75,CRCL= 87.3 calculated. Allergies:statins,levofloxacin,pregabalin;admitted w/diagnosis= Pneumonia.azithromycin 500mg Q24H begun in ED,also cefepime 1 gm iv q12h,and Vancomycin per Pharmacy consult.Vancomycin 1 GM in PCU@0420 05/26 and will continue at 1 gm q12 hours beginning @1300 05/26.First trough is scheduled 05/27 @1200.Will continue to follow levels and labs [facility] May 26, 2017 04:45
[2017-05-26 04:52] LABS: ALBUMIN 2.3 GM/DL (3.2-5.2); ALBUMIN/GLOBULIN RATIO 0.55 (1.00-1.93); ALKALINE PHOSPHATASE 164 U/L (45-117); ALT/SGPT 15 U/L (12-78); ANION GAP 5 MEQ/L (8-16); AST/SGOT 15 U/L (15-37); BILIRUBIN,TOTAL 0.3 MG/DL (0.2-1.0); BLOOD UREA NITROGEN 6 MG/DL (7-18); CALCIUM LEVEL 7.2 MG/DL (8.8-10.2); CARBON DIOXIDE LEVEL 35 MEQ/L (21-32); CHLORIDE LEVEL 100 MEQ/L (98-107); CREATININE FOR GFR 0.95 MG/DL (0.55-1.02); GLOMERULAR FILTRATION RATE > 60.0 (>45); GLUCOSE, FASTING 179 MG/DL (80-110); POTASSIUM SERUM 3.9 MEQ/L (3.5-5.1); SODIUM LEVEL 140 MEQ/L (136-145); T UPTAKE 29 % (30-39); THYROXINE (T4) 9.8 UG/DL (4.5-12.0); TOTAL PROTEIN 6.5 GM/DL (6.4-8.2)
[2017-05-26] MEDS: SLF 3 ML SYR IV SCH ×3 (05:34→21:04)
[2017-05-26] MEDS: LEVOTHYROXINE 25MCG TABLET (0.025MG) PO SCH (05:34)
--- NOTE | 2017-05-26 05:41 | ECGEPIP ---
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
--- NOTE | 2017-05-26 05:46 | HPE ---
DATE OF ADMISSION: 05/25/2017 PRIMARY CARE PROVIDER: Dr Ayoub CHIEF COMPLAINT: Shortness of breath, hypoxia. HISTORY OF PRESENT ILLNESS: This is a 66-year-old female patient with underlying medical history of chronic obstructive pulmonary disease (COPD), jhu-krzjlak-rmbztsytr diabetes, hypothyroidism, hiatal hernia, Sjogren syndrome, has been treated by primary care provider for the past 8 weeks with persistent shortness of breath and cough with Augmentin and Keflex and steroids, with progressively persistent cough productive of clear sputum, was found to be hypoxic down to 76% oxygen, not on oxygen at home. Denies history of sleep apnea. Denies fevers or chill. Reported shortness of breath, dyspnea on exertion with worsening hypoxia with ambulation. Able to lie flat without any difficulty. Dyspnea us exacerbated with ambulation but not changed by laying flat. Denies any chest pain, pressure or discomfort. No history of congestive heart failure (CHF). Denies any nausea, vomiting, diarrhea, or constipation. ALLERGIES: To LEVAQUIN, NONSTEROIDAL ANTI-INFLAMMATORY DRUGS (NSAIDs), NICKEL, PREGABALIN, and STATIN. PAST MEDICAL HISTORY: 1. COPD. 2. Type 2 diabetes, qvd-zeryttc-vvwsgjmsj. 3. Hypothyroidism. 4. Obesity. 5. Large hiatal hernia. 6. Sjogren syndrome. PAST SURGICAL HISTORY: 1. Tonsillectomy. 2. Left wrist ganglion cyst. 3. (C) section times two. 4. Appendectomy. 5. Left knee arthroscopy. 6. Left knee replacement times two. 7. Cataract surgery. FAMILY HISTORY: Father with myocardial infarction ([place]). Mother with cancer. Siblings with heart disease and cancer. SOCIAL HISTORY: Quit smoking 5 years ago, 1 pack per day for 45 years. Denies alcohol drinking. No illicit drug use. REVIEW OF SYSTEMS: Reported shortness of breath, cough productive of clear sputum and hypoxia. All other review of systems are negative. Does not see a signal intelligence analyst. HOME MEDICATION: - Ventolin inhalation every 4 hours - DuoNeb every 4 hours as needed - benzonatate 100 mg by mouth twice a day as needed - cevimeline 30 mg by mouth twice a day - Amrix 30 mg by mouth nightly - Cymbalta 60 mg by mouth daily - Dilaudid 4 mg by mouth three times a day as needed - hydroxyzine 50 mg by mouth four times a day as needed - Bacid one tablet by mouth daily - levothyroxine 25 mcg by mouth daily - metformin 100 mg by mouth twice a day - Zofran 4 mg by mouth by mouth every 8 hours as needed - oxycodone 50 mg by mouth every 12 hours - Requip 0.25 mg by mouth nightly - Advair Diskus 250/50 mcg inhalation daily - sumatriptan 25 mg by mouth daily as needed PHYSICAL EXAMINATION: VITAL SIGNS: Temperature 98.2. Pulse 104. Respirations 21. Blood pressure 187/81. Pulse oximetry 78% on room air. GENERAL: Patient obese, alert, oriented times three. HEENT: Normocephalic, atraumatic. PULMONARY: Bilateral rhonchi with mild expiratory wheeze. CARDIAC: Regular, S1, S2. ABDOMEN: Soft, nontender, obese. EXTREMITIES: No clubbing, cyanosis or edema. CHEST X-RAY: Shows left lower lobe infiltrates, large hiatal hernia. EKG: Shows sinus rhythm at 99. No ST segment changes. LABORATORY: WBC 8.6, hemoglobin and hematocrit 12.3/39.5, platelets 280. Chemistry: Sodium 141, potassium 4.2, chloride 102, bicarbonate 31, BUN 6, creatinine 0.75. Cardiac enzymes negative times one. C-reactive protein 4.7. BNP 1231. ASSESSMENT AND PLAN: This is a 66-year-old female patient with underlying medical history of chronic obstructive pulmonary disease, diabetes type 2, wyz-bvpvavq-uychdxmfr, hypothyroidism, chronic pain, hiatal hernia, Sjogren syndrome admitted with hypoxic respiratory failure secondary to pneumonia and possibly chronic obstructive pulmonary disease exacerbation. PROBLEMS: 1. Acute hypoxic respiratory failure. Patient not on oxygen at home, likely secondary to community-acquired bacterial pneumonia, failure of outpatient therapy and possibly also COPD exacerbation. Oxygen supplementation with FiO2 as tolerated. Cefepime, vancomycin and Zithromax. Followup culture, respiratory panel, sputum culture, blood culture. Nebulizer treatments, inhalers. Solu-Medrol taper as tolerated. 2. Diabetes, type 2, uth-uxrhiax-gfmdnqaet. Holding oral medication. Insulin basal bolus. Adjust as needed. 3. Hypothyroidism. Continue Synthroid. Followup thyroid-stimulating hormone (TSH). 4. Hiatal hernia. Outpatient followup. 5. Sjogren syndrome. Continue home medication. 6. Hypokalemia. 7. Hypoxic respiratory failure. Followup echocardiograms for possible pulmonary hypertension. Patient does not show signs of fluid overload. Given persistent hypoxia, will get CT angiography to rule out pulmonary embolism (PE). 8. Deep venous thrombosis (DVT) prophylaxis. Lovenox subcutaneous. DISPOSITION PLANNING: Pending further workup in terms of echocardiograms, CT angiographies and treatment with Solu-Medrol, antibiotics as mentioned. Followup cultures. MTDD
--- NOTE | 2017-05-26 05:47 | ECGEPIP ---
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
[2017-05-26 07:15] VITALS: BP 126/81
[2017-05-26] MEDS: ADVAIR HFA 115/21MCG INHALER INH SCH (07:20)
[2017-05-26] MEDS: HumaLOG INSULIN (NovoLOG) PER UNIT SC SCH ×3 (07:48→16:54)
[2017-05-26] MEDS: MAG SULF 1GM/100ML (MAG RUN) 1 GM in APPROPRIATE DILUENT 1 EA IV SCH ×3 (07:48→10:10)
[2017-05-26] MEDS ORDERED: SENOKOT S TAB PO SCH (09:00)
[2017-05-26] MEDS: ENOXAPARIN 40 MG/0.4 ML SYRINGE (J1650) SC SCH (09:08)
[2017-05-26] MEDS: oxyCODONE 15 MG CR TAB PO SCH ×2 (09:09→20:31)
[2017-05-26] MEDS: PANTOPRAZOLE 40MG TAB (PROTONIX) PO SCH (09:09)
[2017-05-26] MEDS: DULoxetine 30 MG CAP (CYMBALTA) PO SCH (09:09)
[2017-05-26] MEDS: LACTOBACILLUS ACIDOPHILUS CAP (BACID) PO SCH (09:09)
[2017-05-26] MEDS: hydrOXYzine 25 MG TAB PO PRN ×2 (10:20→16:55)
[2017-05-26 12:00] VITALS: BP 103/61
[2017-05-26] MEDS ORDERED: VANCOMYCIN HCL 1,000 MG, VIAL MATE ADAPTER 1 EACH in D5W 250 ML IV SCH (13:00)
[2017-05-26 15:30] VITALS: BP 141/91
--- NOTE | 2017-05-26 16:33 | IPNPDOC ---
Subjective Date Seen The patient was seen on 05/26/17. Subjective Chief Complaint/HPI The patient is a 66-year-old female admitted with a reason for visit of Copd, Hypoxia. Events since last encounter patient feeling a little better this am with oxygen , Sob better with oxygen , cough less with some clear sputum , no chest pain , no nausea or vomiting or diarrhea, no abdominal pain. Objective Physical Examination General Exam: Positive: Alert, Cooperative, No Acute Distress Eye Exam: Positive: PERRLA, Conjunctiva & lids normal, EOMI, Negative: Sclera icteric ENT Exam: Positive: Atraumatic, Mucous membr. moist/pink, Pharynx Normal Neck Exam: Positive: Supple, Negative: JVD, thyromegaly Chest Exam: Positive: Normal air movement, Rales Heart Exam: Positive: Rate Normal, Regular Rhythm, Normal S1, Normal S2, Negative: Murmurs, Rubs Telemetry: Positive: No significant arrhythmia Abdomen Exam: Positive: Normal bowel sounds, Soft, Negative: Tenderness, Hepatospenomegaly Extremity Exam: Positive: Normal pulses, Negative: Clubbing, Cyanosis, Edema Assessment /Plan Problems (1) COPD exacerbation Status: Acute Problem Text: will continue with nebulizations , prednisone , oxygen and antibiotics. (2) Acute respiratory failure with hypoxia Status: Acute Problem Text: patient will probably need to go home with home oxygen . Most of the hypoxia is possibly due to progression of her cepd. will get echo to evaluate for pulmonary hypertension and any chf. (3) Acute bronchitis Status: Acute Problem Text: will continue with ceftaroline and azithromycin. (4) Morbid obesity Status: Chronic (5) Hypothyroid Status: Chronic (6) Diabetes Status: Chronic (7) Hiatal hernia Status: Chronic (8) Sjogren's disease Status: Chronic (9) Asthma Status: Chronic (10) Restless leg syndrome Status: Chronic (11) Chronic pain Status: Chronic Problem Text: has chronic left knee pain related to work injury. on chronic prescription opiates , follows with pain management. (12) CHF (congestive heart failure) Status: Acute Problem Text: may have diastolic chf and right heart failure with pulmonary hypertension , will get echo. Plan/VTE VTE Prophylaxis Ordered?: Yes VS, I&O, 24H, Fishbone Vital Signs/I&O Vital Signs Date Time Temp Pulse Resp B/P (MAP) Pulse Ox O2 Delivery O2 Flow Rate FiO2 10/17/17 15:30 97.6 105 20 141/91 (108) 91 Nasal Cannula 3.0 I&O- Last 24 Hours up to 6 AM 05/27/17 06:00 Intake Total 980 ml Balance 980 ml Laboratory Data 24H LABS Laboratory Tests 2 05/25/17 18:32: Immature Granulocyte % (Auto) 1.7H, White Blood Count 8.6, Red Blood Count 4.91 , Hemoglobin 12.3, Hematocrit 39.5, Mean Corpuscular Volume 80.4, Mean Corpuscular Hemoglobin 25.1L, Mean Corpuscular Hemoglobin Concent 31.1L, Red Cell Distribution Width 17.1H, Platelet Count 280, Neutrophils (%) (Auto) 67.6H , Lymphocytes (%) (Auto) 21.4L, Monocytes (%) (Auto) 7.8H, Eosinophils (%) (Auto ) 1.2, Basophils (%) (Auto) 0.3, Neutrophils # (Auto) 5.8, Lymphocytes # (Auto) 1.8, Monocytes # (Auto) 0.7, Eosinophils # (Auto) 0.1, Basophils # (Auto) 0.0, Immature Granulocyte # (Auto) 0.2H, Nucleated Red Blood Cells % (auto) 0.6H, Anion Gap 8, Glomerular Filtration Rate > 60.0, Blood Urea Nitrogen 6L, Creatinine 0.75, Sodium Level 141, Potassium Level 4.2, Chloride Level 102, Carbon Dioxide Level 31, Calcium Level 7.4L, JI-Gzy-G-Type Natriuretic Peptide 1231H 05/25/17 22:13: Total Creatine Kinase 74, Creatine Kinase MB 1.2, Creatine Kinase MB Relative Index 1.62, Troponin I < 0.02, C-Reactive Protein, Quantitative 4.77H 05/26/17 03:49: Nucleated Red Blood Cells % (auto) 0.5H, Anion Gap 5L, Glomerular Filtration Rate > 60.0, Blood Urea Nitrogen 6L, Creatinine 0.95, Sodium Level 140, Potassium Level 3.9, Chloride Level 100, Carbon Dioxide Level 35H, Calcium Level 7.2L, Total Creatine Kinase 62, Creatine Kinase MB 1.1, Creatine Kinase MB Relative Index 1.77, Troponin I < 0.02, C-Reactive Protein, Quantitative 3.78H, Aspartate Amino Transf (AST/SGOT) 15, Alanine Aminotransferase (ALT/SGPT ) 15, Alkaline Phosphatase 164H, Total Bilirubin 0.3, Total Protein 6.5, Albumin 2.3L, Magnesium Level 1.0L, Albumin/Globulin Ratio 0.55L, Thyroid Stimulating Hormone (TSH) 1.450, Free Thyroxine Index 2.8, Thyroxine (T4) 9.8, Triiodothyronine (T3) Uptake 29L 05/26/17 11:40: Bedside Glucose (Misc Panel) 295H CBC/BMP Laboratory Tests 05/25/17 18:32 Red Blood Count 4.91, Mean Corpuscular Volume 80.4, Mean Corpuscular Hemoglobin 25.1 L, Mean Corpuscular Hemoglobin Concent 31.1 L, Red Cell Distribution Width 17.1 H, Neutrophils (%) (Auto) 67.6 H, Lymphocytes (%) (Auto) 21.4 L, Monocytes (%) (Auto) 7.8 H, Eosinophils (%) (Auto) 1.2, Basophils (%) (Auto) 0.3, Neutrophils # (Auto) 5.8, Lymphocytes # (Auto) 1.8, Monocytes # (Auto) 0.7, Eosinophils # (Auto) 0.1, Basophils # (Auto) 0.0, Calcium Level 7.4 L 05/26/17 03:49 Red Blood Count 4.60, Mean Corpuscular Volume 81.7, Mean Corpuscular Hemoglobin 25.4 L, Mean Corpuscular Hemoglobin Concent 31.1 L, Red Cell Distribution Width 17.4 H, Calcium Level 7.2 L, Aspartate Amino Transf (AST/SGOT) 15, Alanine Aminotransferase (ALT/SGPT) 15, Alkaline Phosphatase 164 H, Total Bilirubin 0.3 , Total Protein 6.5, Albumin 2.3 L Microbiology Microbiology 05/25/17 Blood Culture, Received Pending 05/25/17 Blood Culture, Received Pending 05/26/17 Respiratory Virus Panel (PCR) ([facility]) - Final, Complete MEEK DIAZ MD May 26, 2017 16:33
[2017-05-26] MEDS: CEFTAROLINE FOSAMIL 600 MG in D5W 50 ML IV SCH (18:16)
[2017-05-26] MEDS: rOPINIRole 0.25 MG TAB(REQUIP) PO SCH (20:31)
[2017-05-26] MEDS: AZITHROMYCIN 250 MG TAB PO SCH (20:41)
[2017-05-26 20:48] VITALS: BP 114/69
[2017-05-26] MEDS ORDERED: ENTER DRUG NAME HERE (PATIENT'S OWN MED) PO SCH (21:00)
[2017-05-26] MEDS: HYDROmorphone 2 MG TAB PO PRN (21:04)
[2017-05-26] MEDS: CYCLOBENZAPRINE 10 MG TAB PO SCH (22:36)
[2017-05-26] MEDS: BENZONATATE 100 MG CAP PO PRN (22:36)
[2017-05-27] MEDS: IPRATROPIUM 0.5MG/ALBUTEROL 2.5MG INH SOL UD 3ML (DUONEB)(J7620) NEB SCH ×4 (02:00→19:58)
[2017-05-27] MEDS: LEVOTHYROXINE 25MCG TABLET (0.025MG) PO SCH (06:06)
[2017-05-27] MEDS: SLF 3 ML SYR IV SCH ×3 (06:07→22:00)
[2017-05-27] MEDS: CEFTAROLINE FOSAMIL 600 MG in D5W 50 ML IV SCH ×2 (06:07→18:30)
[2017-05-27 06:27] VITALS: BP 119/65
[2017-05-27 07:17] LABS: MEAN CORPUSCULAR HEMOGLOBIN 25.2 pg (27.0-33.0); MEAN CORPUSCULAR HGB CONC 31.2 g/dl (32.0-36.5); MEAN CORPUSCULAR VOLUME 80.9 fl (80.0-96.0); WHITE BLOOD COUNT 9.1 10^3/uL (4.0-10.0)
[2017-05-27 07:20] VITALS: O2SAT 93
[2017-05-27] MEDS: ADVAIR HFA 115/21MCG INHALER INH SCH (07:23)
[2017-05-27 07:39] LABS: ALBUMIN 2.4 GM/DL (3.2-5.2); ALBUMIN/GLOBULIN RATIO 0.57 (1.00-1.93); ALKALINE PHOSPHATASE 161 U/L (45-117); ALT/SGPT 16 U/L (12-78); ANION GAP 5 MEQ/L (8-16); AST/SGOT 9 U/L (15-37); BILIRUBIN,TOTAL 0.4 MG/DL (0.2-1.0); BLOOD UREA NITROGEN 10 MG/DL (7-18); CALCIUM LEVEL 7.1 MG/DL (8.8-10.2); CARBON DIOXIDE LEVEL 35 MEQ/L (21-32); CHLORIDE LEVEL 99 MEQ/L (98-107); CREATININE FOR GFR 0.76 MG/DL (0.55-1.02); GLOMERULAR FILTRATION RATE > 60.0 (>45); GLUCOSE, FASTING 174 MG/DL (80-110); POTASSIUM SERUM 3.9 MEQ/L (3.5-5.1); SODIUM LEVEL 139 MEQ/L (136-145); TOTAL PROTEIN 6.6 GM/DL (6.4-8.2)
[2017-05-27] MEDS: oxyCODONE 15 MG CR TAB PO SCH ×2 (08:47→20:48)
[2017-05-27] MEDS: LACTOBACILLUS ACIDOPHILUS CAP (BACID) PO SCH (08:47)
[2017-05-27] MEDS: DULoxetine 30 MG CAP (CYMBALTA) PO SCH (08:47)
[2017-05-27] MEDS: PANTOPRAZOLE 40MG TAB (PROTONIX) PO SCH (08:47)
[2017-05-27] MEDS: LEVEMIR (INSULIN DETEMIR) 1 UNITS/0.01ML SC SCH (08:48)
[2017-05-27] MEDS: HumaLOG INSULIN (NovoLOG) PER UNIT SC SCH ×3 (08:48→17:20)
[2017-05-27] MEDS: ENOXAPARIN 40 MG/0.4 ML SYRINGE (J1650) SC SCH (08:50)
[2017-05-27] MEDS ORDERED: predniSONE 20 MG TAB PO SCH (09:00)
[2017-05-27] MEDS ORDERED: INFLUENZA QUADRIVALENT PF VACCINE 0.5ML SYRINGE (90686) IM ONE (09:00)
[2017-05-27] MEDS: hydrOXYzine 25 MG TAB PO PRN (13:55)
[2017-05-27 14:00] VITALS: BP 113/59
--- NOTE | 2017-05-27 15:18 | IPNPDOC ---
Subjective Date Seen The patient was seen on 05/27/17. Subjective Chief Complaint/HPI The patient is a 66-year-old female admitted with a reason for visit of Copd, Hypoxia. Events since last encounter shortness of breath much improved, requiring less oxygen. No fever or chills, no cough or phlegm , no nausea or vomiting or diarrhea. Objective Physical Examination General Exam: Positive: Alert, Cooperative, No Acute Distress Eye Exam: Positive: PERRLA, Conjunctiva & lids normal, EOMI, Negative: Sclera icteric ENT Exam: Positive: Atraumatic, Mucous membr. moist/pink, Pharynx Normal Neck Exam: Positive: Supple, Negative: JVD, thyromegaly Chest Exam: Positive: Normal air movement, Rales Heart Exam: Positive: Rate Normal, Regular Rhythm, Normal S1, Normal S2, Negative: Murmurs, Rubs Telemetry: Positive: No significant arrhythmia Abdomen Exam: Positive: Normal bowel sounds, Soft, Negative: Tenderness, Hepatospenomegaly Extremity Exam: Positive: Normal pulses, Negative: Clubbing, Cyanosis, Edema Assessment /Plan Problems (1) COPD exacerbation Status: Acute Problem Text: will continue with nebulizations , prednisone , oxygen and antibiotics. will start tapering prednisone. (2) Acute respiratory failure with hypoxia Status: Acute Problem Text: patient will probably need to go home with home oxygen . Most of the hypoxia is possibly due to progression of her copd. will get echo to evaluate for pulmonary hypertension and any chf. (3) Acute bronchitis Status: Acute Problem Text: will continue with ceftaroline and azithromycin. patient does not have pneumonia I believe the ground glass opacities are fluid and atelectasis. will start on fluid restriction (4) Morbid obesity Status: Chronic (5) Hypothyroid Status: Chronic (6) Diabetes Status: Chronic (7) Hiatal hernia Status: Chronic (8) Sjogren's disease Status: Chronic (9) Asthma Status: Chronic (10) Restless leg syndrome Status: Chronic (11) Chronic pain Status: Chronic Problem Text: has chronic left knee pain related to work injury. on chronic prescription opiates , follows with pain management. (12) CHF (congestive heart failure) Status: Acute Problem Text: THis is present from admission as seen in CT chest with ground glass opacities which i believe represents fluid rather than pneumonia .may have diastolic chf and right heart failure with pulmonary hypertension , will get echo. will continue with fluid restriction . Patient is at negative balance , will start lasix if required Plan/VTE VTE Prophylaxis Ordered?: Yes VS, I&O, 24H, Garrick Vital Signs/I&O Vital Signs Date Time Temp Pulse Resp B/P (MAP) Pulse Ox O2 Delivery O2 Flow Rate FiO2 05/27/17 14:00 97.9 109 20 113/59 (77) 92 Room Air 05/27/17 12:27 1.0 I&O- Last 24 Hours up to 6 AM 05/28/17 06:00 Intake Total 720 ml Output Total 3150 ml Balance -2430 ml Laboratory Data 24H LABS Laboratory Tests 2 05/26/17 16:48: Bedside Glucose (Misc Panel) 241H 05/26/17 19:55: Bedside Glucose (Misc Panel) 328H 05/27/17 06:51: Nucleated Red Blood Cells % (auto) 0.0, Anion Gap 5L, Glomerular Filtration Rate > 60.0, Blood Urea Nitrogen 10#, Creatinine 0.76, Sodium Level 139, Potassium Level 3.9, Chloride Level 99, Carbon Dioxide Level 35H, Calcium Level 7.1L, Aspartate Amino Transf (AST/SGOT) 9L, Alanine Aminotransferase (ALT/SGPT) 16, Alkaline Phosphatase 161H, Total Bilirubin 0.4, Total Protein 6.6, Albumin 2.4L, Magnesium Level 2.0, C-Reactive Protein, Quantitative 2.34H, Albumin/ Globulin Ratio 0.57L 05/27/17 11:38: Bedside Glucose (Misc Panel) 167H 05/27/17 12:03: Vancomycin Level Trough 4.9L CBC/BMP Laboratory Tests 05/27/17 06:51 Red Blood Count 4.60, Mean Corpuscular Volume 80.9, Mean Corpuscular Hemoglobin 25.2 L, Mean Corpuscular Hemoglobin Concent 31.2 L, Red Cell Distribution Width 17.0 H, Calcium Level 7.1 L, Aspartate Amino Transf (AST/SGOT) 9 L, Alanine Aminotransferase (ALT/SGPT) 16, Alkaline Phosphatase 161 H, Total Bilirubin 0.4 , Total Protein 6.6, Albumin 2.4 L Microbiology Microbiology 05/25/17 Blood Culture - Preliminary, Resulted No growth after 24 hours . All specim... 05/25/17 Blood Culture - Preliminary, Resulted No growth after 24 hours . All specim... 05/26/17 Gram Stain - Final, Resulted 05/26/17 Sputum Culture, Resulted Pending 05/26/17 Respiratory Virus Panel (PCR) ([facility]) - Final, Complete MEEK DIAZ MD May 27, 2017 15:17
[2017-05-27 20:02] VITALS: BP 140/78
[2017-05-27] MEDS: AZITHROMYCIN 250 MG TAB PO SCH (20:47)
[2017-05-27] MEDS: BENZONATATE 100 MG CAP PO PRN (20:47)
[2017-05-27] MEDS: rOPINIRole 0.25 MG TAB(REQUIP) PO SCH (20:47)
[2017-05-27] MEDS: CYCLOBENZAPRINE 10 MG TAB PO SCH (20:49)
[2017-05-27] MEDS: HYDROmorphone 2 MG TAB PO PRN (23:21)
[2017-05-28] MEDS: IPRATROPIUM 0.5MG/ALBUTEROL 2.5MG INH SOL UD 3ML (DUONEB)(J7620) NEB SCH ×2 (01:56→08:01)
[2017-05-28 06:00] VITALS: BP 143/76
[2017-05-28] MEDS: LEVOTHYROXINE 25MCG TABLET (0.025MG) PO SCH (06:02)
[2017-05-28] MEDS: SLF 3 ML SYR IV SCH (06:03)
[2017-05-28] MEDS: CEFTAROLINE FOSAMIL 600 MG in D5W 50 ML IV SCH (06:03)
[2017-05-28 07:15] LABS: MEAN CORPUSCULAR HEMOGLOBIN 24.3 pg (27.0-33.0); MEAN CORPUSCULAR HGB CONC 30.5 g/dl (32.0-36.5); MEAN CORPUSCULAR VOLUME 79.7 fl (80.0-96.0); RED CELL DISTRIBUTION WIDTH 17.1 % (11.5-14.5); WHITE BLOOD COUNT 10.3 10^3/uL (4.0-10.0)
[2017-05-28 07:40] LABS: ALBUMIN 2.6 GM/DL (3.2-5.2); ALBUMIN/GLOBULIN RATIO 0.63 (1.00-1.93); ALKALINE PHOSPHATASE 168 U/L (45-117); ALT/SGPT 23 U/L (12-78); ANION GAP 7 MEQ/L (8-16); AST/SGOT 26 U/L (15-37); BILIRUBIN,TOTAL 0.3 MG/DL (0.2-1.0); BLOOD UREA NITROGEN 9 MG/DL (7-18); CALCIUM LEVEL 7.6 MG/DL (8.8-10.2); CARBON DIOXIDE LEVEL 32 MEQ/L (21-32); CHLORIDE LEVEL 100 MEQ/L (98-107); GLOMERULAR FILTRATION RATE > 60.0 (>45); GLUCOSE, FASTING 135 MG/DL (80-110); MAGNESIUM LEVEL 1.7 MG/DL (1.8-2.4); POTASSIUM SERUM 3.6 MEQ/L (3.5-5.1); SODIUM LEVEL 139 MEQ/L (136-145); TOTAL PROTEIN 6.7 GM/DL (6.4-8.2)
[2017-05-28] MEDS: HumaLOG INSULIN (NovoLOG) PER UNIT SC SCH ×2 (08:14→12:54)
[2017-05-28] MEDS: DULoxetine 30 MG CAP (CYMBALTA) PO SCH (08:14)
[2017-05-28] MEDS: LEVEMIR (INSULIN DETEMIR) 1 UNITS/0.01ML SC SCH (08:14)
[2017-05-28] MEDS: LACTOBACILLUS ACIDOPHILUS CAP (BACID) PO SCH (08:14)
[2017-05-28] MEDS: PANTOPRAZOLE 40MG TAB (PROTONIX) PO SCH (08:16)
[2017-05-28] MEDS: ENOXAPARIN 40 MG/0.4 ML SYRINGE (J1650) SC SCH (08:17)
[2017-05-28] MEDS: oxyCODONE 15 MG CR TAB PO SCH (08:17)
[2017-05-28] MEDS ORDERED: LASI20TA PO (08:25)
[2017-05-28] MEDS ORDERED: CEFD1CAP8 PO (08:25)
[2017-05-28] MEDS ORDERED: PRED10TA2 PO (08:25)
[2017-05-28] MEDS: MAG SULF 1GM/100ML (MAG RUN) 1 GM in APPROPRIATE DILUENT 1 EA IV SCH ×2 (08:43→09:54)
[2017-05-28] MEDS ORDERED: predniSONE 20 MG TAB PO SCH ×2 (09:00)
[2017-05-28] MEDS: HYDROmorphone 2 MG TAB PO PRN (09:49)
[2017-05-28] MEDS: ADVAIR HFA 115/21MCG INHALER INH SCH (10:30)
--- NOTE | 2017-05-29 11:48 | DSES ---
DATE OF ADMISSION: 05/25/2017 DATE OF DISCHARGE: 05/28/2017 PRIMARY CARE PROVIDER: Shivani Sung at the resident clinic. DISCHARGE DIAGNOSES: 1. Chronic obstructive pulmonary disease (COPD) exacerbation. 2. Acute bronchitis. 3. Morbid obesity. 4. Acute respiratory failure with hypoxia. 5. Hypothyroidism. 6. Diabetes. 7. Hiatal hernia. 8. Sjogren's disease. 9. Asthma, chronic. 10. Restless leg syndrome. 11. Chronic knee pain. 12. Dependent on prescription opiates. 13. Congestive heart failure (CHF), acute. 14. Migraines. DISCHARGE MEDICATIONS: - cefdinir 300 mg by mouth twice a day - Lasix 20 mg by mouth daily - prednisone 10 mg tapering course - albuterol sulfate MDI one inhalation every 4 hours as needed for shortness of breath - albuterol ipratropium nebulizer solution one solution inhalation every 4 hours as needed for shortness of breath - benzonatate 100 mg by mouth twice a day as needed - cevimeline 30 mg by mouth twice a day - Cymbalta 60 mg by mouth daily - Garcinia-Cambogia 500/200 mg/mcg one tablet by mouth daily - hydromorphone 4 mg by mouth three times a day as needed for pain - hydroxyzine 50 mg by mouth four times a day as needed for anxiety - lactobacillus one tablet by mouth daily - Synthroid 25 mcg by mouth daily - metformin 1000 mg by mouth twice a day - midnite one tablet to be chewed at night - ondansetron 4 mg by mouth every 8 hours as needed for nausea - oxycodone hydrochloride 15 mg tablet by mouth every 12 hours - Requip 0.25 mg by mouth at bedtime - Advair 250/50 one puff inhalation daily - sumatriptan succinate 25 mg tablet by mouth daily as needed for migraine HOSPITAL COURSE: This is a 66-year-old female who presented to the hospital with shortness of breath and hypoxia. The patient was found to be hypoxic down to 76% on room air on presentation. The patient has been having symptoms for 2 months prior to admission and had received two courses of oral antibiotics; Augmentin and Keflex, as an outpatient without any improvement so came to the emergency room. In the emergency department, the patient was initially felt to have pneumonia from her chest x-ray; however, also discoid atelectasis in the right lung, large hiatal hernia, did mention possible left lower lobe infiltrate, which remained unchanged from the CT scan done on 05/13/2017. The patient was empirically started on IV antibiotics, including vancomycin, azithromycin and cefepime. Subsequently, the patient had a CT angio of the chest to rule out PE, which did not reveal any pulmonary embolism. It did show large sliding hiatal hernia and it revealed acute bronchitis. There were subsegmental atelectatic air space disease in the lower lobes and associated ground glass densities, which was felt to be related to fluid rather than infection as the patient did not have any fever or elevated white count to suggest infection, and the patient's sputum was negative. The patient was deescalated to single antibiotics, ceftaroline, which he received 3 days intravenously. The patient was also started on fluid restriction. The patient did have cumulative negative balance of more than 3 liters during the hospitalization, so we did not give her any Lasix; however, Lasix was added as an as needed medication during discharge. The patient did say that she drinks a lot of liquids during the day because of her Sjogren's syndrome and sensation of dry mouth. I did discuss with the patient that even if she does not notice any swelling of the legs she may collect fluid in the central part of her body, which may worsen her breathing and make her more short of breath. On day 2 of admission, the patient was successfully weaned off oxygen. The patient was walked around the [place] and oxygenation was checked. There was no drop in oxygen saturation to indicate the need for home oxygen. On the day of discharge, the patient was feeling well. She was close to her baseline functional status. Vitals were stable and she did not have any complaints. Unfortunately, during the hospitalization, we could not get an echo; however, the patient was told that she should discuss this with her primary to get it done as an outpatient. PHYSICAL EXAMINATION: VITAL SIGNS: Temperature 98, pulse 90, respiratory rate 18, blood pressure 143/76, pulse oximetry 93% on room air. GENERAL: The patient is awake, alert and oriented times three. Sitting up in bed in no acute distress. HEENT: Normocephalic, atraumatic. Dry mucous membranes of the mouth. Anicteric eyes. CHEST: Clear to auscultation. CARDIOVASCULAR: S1, S2 regular. No rub, murmur or gallop. ABDOMEN: Obese, soft, nontender. Bowel sounds present. EXTREMITIES: No edema. LABORATORY DATA: WBC 10.3, hemoglobin 12.1, platelets 353. Sodium 139, potassium 3.6, chloride 100, bicarbonate 32, BUN 9, creatinine 0.9, glucose 135, calcium 7.6, magnesium 1.7, replaced. Liver function tests are normal. Alkaline phosphatase 168, C-reactive protein 1.36. Blood cultures negative after 72 hours. Respiratory viral panel negative. Sputum gram-stain and culture shows normal elida. CT angio of the chest showed moderate sliding hiatal hernia, no pulmonary embolism. There is bilateral peribronchial interstitial thickening suggestive of bronchitis. Central lobular nodules, probably bronchitis or airway disease. Subsegmental atelectatic with associated ground glass densities. DISPOSITION: The patient is discharged home in stable condition. DISCHARGE INSTRUCTIONS: The patient is to followup with primary care provider in 1 week. Carbohydrate consistent diet. Fluid restriction, 2 liters per day. Activity as tolerated.
== END 2017-05-28 13:00 | disposition home or self-care (01) | DRG 291 ==
LOC: M ED 17:56 → M ED INP 23:56 → M PCU 05-26 01:50 → M MS4PR 05-26 15:09
PROVIDERS: ADMIT Hospitalist; ATTEND Internal Medicine Nephrology
DX: I50.33 Acute on chronic diastolic (congestive) heart failure (principal); J96.01 Acute respiratory failure with hypoxia; J44.1 Chronic obstructive pulmonary disease with (acute) exacerbation; Z68.41 Body mass index [BMI] 40.0-44.9, adult; F11.20 Opioid dependence, uncomplicated; E87.6 Hypokalemia; M35.00 Sjogren syndrome, unspecified; E66.01 Morbid (severe) obesity due to excess calories; E11.9 Type 2 diabetes mellitus without complications; G43.909 Migraine, unspecified, not intractable, without status migrainosus; G25.81 Restless legs syndrome; K44.9 Diaphragmatic hernia without obstruction or gangrene; Z79.899 Other long term (current) drug therapy; Z88.8 Allergy status to other drugs, medicaments and biological substances; Z87.891 Personal history of nicotine dependence; J45.909 Unspecified asthma, uncomplicated

== ENCOUNTER → 2017-08-21 | Outpatient (CLI) | payer OTHER | LOC: M PAIN 11:30 | DX: M25.562 Pain in left knee (principal); J44.9 Chronic obstructive pulmonary disease, unspecified; E11.9 Type 2 diabetes mellitus without complications; E03.9 Hypothyroidism, unspecified; K44.9 Diaphragmatic hernia without obstruction or gangrene; M35.00 Sjogren syndrome, unspecified; Z88.8 Allergy status to other drugs, medicaments and biological substances; Z88.6 Allergy status to analgesic agent; Z91.048 Other nonmedicinal substance allergy status; Z79.84 Long term (current) use of oral hypoglycemic drugs; Z79.891 Long term (current) use of opiate analgesic; Z79.899 Other long term (current) drug therapy; Z87.891 Personal history of nicotine dependence | CPT/HCPCS: G0463 ==

== ENCOUNTER → 2017-12-22 | Outpatient (CLI) | payer OTHER | LOC: M PAIN 14:00 | DX: G89.29 Other chronic pain (principal); M25.562 Pain in left knee; J44.9 Chronic obstructive pulmonary disease, unspecified; E11.9 Type 2 diabetes mellitus without complications; E03.9 Hypothyroidism, unspecified; K44.9 Diaphragmatic hernia without obstruction or gangrene; M35.00 Sjogren syndrome, unspecified; Z87.891 Personal history of nicotine dependence; Z79.4 Long term (current) use of insulin; Z79.899 Other long term (current) drug therapy; Z79.891 Long term (current) use of opiate analgesic; Z91.048 Other nonmedicinal substance allergy status; Z88.6 Allergy status to analgesic agent; Z88.8 Allergy status to other drugs, medicaments and biological substances; Z88.1 Allergy status to other antibiotic agents | CPT/HCPCS: G0463 ==

== ENCOUNTER → 2018-01-19 | Outpatient (CLI) | payer OTHER | LOC: M PAIN 10:00 | DX: G89.29 Other chronic pain (principal); M25.562 Pain in left knee; J44.9 Chronic obstructive pulmonary disease, unspecified; E11.9 Type 2 diabetes mellitus without complications; E03.9 Hypothyroidism, unspecified; K44.9 Diaphragmatic hernia without obstruction or gangrene; M35.00 Sjogren syndrome, unspecified; Z96.652 Presence of left artificial knee joint; Z98.49 Cataract extraction status, unspecified eye; Z87.891 Personal history of nicotine dependence; Z79.84 Long term (current) use of oral hypoglycemic drugs; Z79.891 Long term (current) use of opiate analgesic; Z79.899 Other long term (current) drug therapy; Z88.6 Allergy status to analgesic agent; Z88.8 Allergy status to other drugs, medicaments and biological substances; Z91.048 Other nonmedicinal substance allergy status | CPT/HCPCS: G0463 ==

== ENCOUNTER → 2018-05-06 | Outpatient (REF) | payer MEDICARE, BC ==
[2018-05-06 18:03] LABS: BASO % 0.4 % (0.0-1.0); EOS # 0.2 10^3/uL (0.0-0.50); EOS % 2.3 % (0.0-3.0); HEMATOCRIT 41.7 % (36.0-47.0); HEMOGLOBIN 13.3 g/dl (12.0-15.5); IMMATURE GRANULOCYTE % 0.6 % (0-3.0); LYMPH # 3.6 10^3/uL (1.5-4.5); LYMPH % 34.4 % (24.0-44.0); MEAN CORPUSCULAR HEMOGLOBIN 25.5 pg (27.0-33.0); MEAN CORPUSCULAR HGB CONC 31.9 g/dl (32.0-36.5); MEAN CORPUSCULAR VOLUME 79.9 fl (80.0-96.0); MONO # 0.9 10^3/uL (0.0-0.8); MONO % 8.7 % (0.0-5.0); NEUTROPHILS # 5.6 10^3/uL (1.8-7.7); NEUTROPHILS % 53.6 % (36.0-66.0); PLATELET COUNT, AUTOMATED 311 10^3/uL (150-450); RED BLOOD COUNT 5.22 10^6/uL (4.00-5.40); RED CELL DISTRIBUTION WIDTH 15.5 % (11.5-14.5); WHITE BLOOD COUNT 10.5 10^3/uL (4.0-10.0)
[2018-05-06 18:10] LABS: ESTIMATED AVERAGE GLUCOSE 177 MG/DL (60-110); HEMOGLOBIN A1c 7.8 %
[2018-05-06 18:47] LABS: ALBUMIN 3.3 GM/DL (3.2-5.2); ALKALINE PHOSPHATASE 125 U/L (45-117); ALT/SGPT 16 U/L (12-78); ANION GAP 8 MEQ/L (8-16); AST/SGOT 11 U/L (7-37); BILIRUBIN,TOTAL 0.3 MG/DL (0.2-1.0); BLOOD UREA NITROGEN 8 MG/DL (7-18); CALCIUM LEVEL 8.8 MG/DL (8.8-10.2); CARBON DIOXIDE LEVEL 32 MEQ/L (21-32); CHLORIDE LEVEL 99 MEQ/L (98-107); CHOLESTEROL LEVEL 226 MG/DL (<200); CHOLESTEROL RISK RATIO 6.108 (<5); FREE T4 1.06 NG/DL (0.76-1.46); GLOMERULAR FILTRATION RATE > 60.0 (>45); GLUCOSE, FASTING 172 MG/DL (70-100); HDL CHOLESTEROL 37 MG/DL (>40); NON-HDL-C 189 MG/DL; SODIUM LEVEL 139 MEQ/L (136-145); TOTAL PROTEIN 7.4 GM/DL (6.4-8.2); TRIGLYCERIDES LEVEL 475 MG/DL (<150)
[2018-05-06 19:03] LABS: MALB URINE SIEMENS 20.5 MG/L
[2018-05-06 19:19] LABS: MAU/CREAT RATIO 11.9 MCG/MG (0.0-30.0)
== END ==
LOC: M SFHCPLAZ 15:27
DX: E03.9 Hypothyroidism, unspecified (principal); E11.9 Type 2 diabetes mellitus without complications; J45.909 Unspecified asthma, uncomplicated; E66.9 Obesity, unspecified
CPT/HCPCS: 84443

== ENCOUNTER → 2018-06-03 | Outpatient (CLI) | payer OTHER, BC, MEDICARE | LOC: M PAIN 11:15 | DX: Z53.29 Procedure and treatment not carried out because of patient's decision for other reasons (principal) ==

== ENCOUNTER → 2018-07-22 | Outpatient (CLI) | payer OTHER, BC, MEDICARE ==
[~2018-07-22] MED LIST changes: +ADV250INH INH; +BACITAB PO; +BENZ-18; +BENZ-18 PO; +CEFD1CAP8 PO; +CEVI1CAP; +CEVI1CAP PO; +GARC500T PO; +HYDR4TAB; +HYDR4TAB PO; +IPRA0.00 IN; +IPRA0.00 INH; -IPRASOL4 IN; -LASI20TA PO; +LASI20TA3 PO; +MIDN1CHW PO; +ONDA4TAB6 PO; +PRED10TA2 PO; +REQU1TAB14 PO; +ROPI0.253 PO; +SUMA25TA3 PO; +SYNT25TA PO; +VENTAER INH
--- NOTE | 2018-08-14 01:23 | ECWPNPC ---
PATIENT NAME: SARAVANAN DAUGHERTY : 1950 GENDER: FEMALE VISIT DATE: 07/22/2018 DISCHARGE DATE: 07/22/18 1306 VISIT LOCKED DATE TIME: PHYSICIAN: JULIANA COOLEY RESOURCE: JULIANA COOLEY REASON FOR APPOINTMENT 1. W/C LEFT KNEE HISTORY OF PRESENT ILLNESS HISTORY OF PRESENT ILLNESS: HERE FOR ROUTINE F/U AND MANAGEMENT OF PERSISTENT LEFT KNEE PAIN. RATING PAIN VAS 6/10.REPORTS EPISODIC SHOOTING PAIN LEFT KNEE RADIATING UP LEFT THIGH.THIS IS CHRONIC PAIN RELATED TO WORK INJURY 04-29-05.CURRENTLY USING OXYCONTIN 15MG BID,HYDROMORPHONE 2MG Q12H PRN MDD2,CYMBALTA 60MG QD AND AMRIX 15MG 2 TAB DAILY.REPORTING INCREASE IN BREAKTHROUGH PAIN SINCE REDUCING DILAUDID 6 WEEKS AGO.FINDING IT MORE DIFFICULT TO PARTICIPATE IN ADL'S SINCE REDUCTION.DISUSSED MEDICATION OPTIONS. PAIN THE PATIENT DESCRIBES THE PAIN... THE PATIENT DESCRIBES THE PAIN... THE PATIENT DESCRIBES THE PAIN... THE PATIENT DESCRIBES THE PAIN... THE PATIENT DESCRIBES THE PAIN... THE PATIENT DESCRIBES THE PAIN... THE PATIENT DESCRIBES THE PAIN... THE PATIENT DESCRIBES THE PAIN... THE PATIENT DESCRIBES THE PAIN... THE PATIENT DESCRIBES THE PAIN... THE PATIENT DESCRIBES THE PAIN... PAIN THE PATIENT DESCRIBES THE PAIN... THE PATIENT DESCRIBES THE PAIN... THE PATIENT DESCRIBES THE PAIN... THE PATIENT DESCRIBES THE PAIN... THE PATIENT DESCRIBES THE PAIN... THE PATIENT DESCRIBES THE PAIN... THE PATIENT DESCRIBES THE PAIN... THE PATIENT DESCRIBES THE PAIN... THE PATIENT DESCRIBES THE PAIN... THE PATIENT DESCRIBES THE PAIN... THE PATIENT DESCRIBES THE PAIN... FALL RISK SCREENING: SCREENING :NO FALLS IN THE PAST YEAR CURRENT MEDICATIONS TAKING IPRATROPIUM-ALBUTEROL 0.5-2.5 (3) MG/3ML SOLUTION 3 ML INHALATION EVERY 4 HRS TAKING HYDROXYZINE HCL 50 MG TABLET 1 TABLET NEEDED ORALLY QID TAKING CYMBALTA 60 MG CAPSULE DELAYED RELEASE PARTICLES 1 CAPSULE 30MG DAILY ORALLY ONCE A DAY TAKING CYMBALTA 30 MG CAPSULE DELAYED RELEASE PARTICLES 1 CAPSULE 60MG DAILY ORALLY ONCE A DAY TAKING BLOOD GLUCOSE TEST - STRIP 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 TWICE DAILY TAKING RANITIDINE HCL 150 MG CAPSULE 1 CAPSULE ORALLY TWICE A DAY TAKING PROBIOTIC - CAPSULE 1 CAP ORALLY DAILY TAKING LANCETS - MISCELLANEOUS 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 TWICE DAILY TAKING NYSTATIN [id number] UNIT/GM POWDER 1 APPLICATION TO AFFECTED AREA EXTERNALLY TWICE A DAY TAKING BENADRYL ALLERGY 25 MG TABLET 1 TABLET NEEDED ORALLY EVERY 8 HRS TAKING CLARITIN 10 MG TABLET 1 TABLET ORALLY ONCE A DAY TAKING LASIX 20 MG TABLET 1 TABLET ORALLY ONCE A DAY TAKING HYDROMORPHONE HCL 2 MG TABLET 1 TABLET ORALLY Q6H PRN MDD4 TAKING AMRIX 15 MG CAPSULE EXTENDED RELEASE 24 HOUR 2 CAPSULE ORALLY ONCE A DAY TAKING ONETOUCH VERIO - STRIP 1 STRIP IN VITRO DAILY TAKING ONETOUCH VERIO - STRIP 1 LANCET IN VITRO DAILY TAKING METFORMIN HCL 1000 MG TABLET 1 TABLET WITH MEALS ORALLY TWICE A DAY TAKING ADVAIR DISKUS 250-50 MCG/DOSE AEROSOL POWDER BREATH ACTIVATED 1 PUFF INHALATION DAILY TAKING ROPINIROLE HCL 1 MG TABLET 1 TABLET IN A.M. ,1.5 AND 1 TAB. AT BEDTIME ORALLY BID TAKING LEVOTHYROXINE SODIUM 50 MCG TABLET 1 TABLET ON AN EMPTY STOMACH IN THE MORNING ORALLY ONCE A DAY TAKING ROPINIROLE HCL 1 MG TABLET 1 TABLET IN AM, 1.5 TABLETS IN PM ORALLY BID TAKING OXYCODONE HCL ER 15 MG TABLET ER 12 HOUR ABUSE-DETERRENT 1 TABLET ORALLY EVERY 12 HRS BID MDD2 TAKING VENTOLIN HFA 108 (90 BASE) MCG/ACT AEROSOL SOLUTION 2 PUFFS NEEDED INHALATION EVERY 6 HRS TAKING GUAIFENESIN 400 MG TABLET WITH PHENYLEPHRINDE 10 MGS 1 TABLET NEEDED ORALLY EVERY 12 HOURS NEEDED TAKING MAY USE GINER OIL 5-10 DROPS _ RUB INTO SWOLLEN AREAS TWICE A DAY NEEDED TAKING ARNICA - LIQUID 5-10 DROPS RUBBED IN HAND TOPICALLY TO PAINFUL AREA NEEDED FOR PAIN TAKING MAY HAVE NOT-TAKING CLONIDINE HCL 0.1 MG TABLET 1 TABLET AT BEDTIME ORALLY Q8H PRN NOT-TAKING PROAIR HFA 108 (90 BASE) MCG/ACT AEROSOL SOLUTION 2 PUFFS NEEDED INHALATION EVERY 6 HRS NOT-TAKING ALBUTEROL SULFATE (2.5 MG/3ML) 0.083% NEBULIZATION SOLUTION 3 ML NEEDED INHALATION THREE TIMES DAILY NEEDED MEDICATION LIST REVIEWED AND RECONCILED WITH THE PATIENT PAST MEDICAL HISTORY 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 JALLOH T2DM HYPOTHYROIDISM 10 CM RETROCARDIAC HIATAL HERNIA SJOGREN SYNDROME RESTLESS LEGS ARNEL MIGRAINES ALLERGIES NICKEL: SWELLING: ALLERGY STATINS (FOR ALLERGY USE ONLY): INCREASED LFTS, MUSCULAR PAIN: ALLERGY NSAIDS: ABDOMINAL PAIN, GI ULCER: ALLERGY LEVAQUIN: FACIAL SWELLING: ALLERGY LYRICA: ITCHING: ALLERGY LACTOSE: DIARRHEA, ABDOMINAL PAIN : ALLERGY SURGICAL HISTORY TONSILLECTOMY GANGLION CYST WITH CARPAL RELEASE, LEFT WRIST SECTION X2 APPENDECTOMY LEFT ARTHROSCOPY LEFT KNEE REPLACEMENT X2 2008, 2013 [employer] FAMILY HISTORY FATHER: , ME, DIABETES, DIAGNOSED WITH DIABETES, HYPERTENSION, HEART DISEASE MOTHER: , CANCER, DIAGNOSED WITH CANCER SIBLINGS: ALIVE, HEART DISEASE, CANCER SON(S): ALIVE DAUGHTER(S): ALIVE, LUPUS 2 BROTHER(S) - HEALTHY. 1 SON(S) , 1 DAUGHTER(S) - HEALTHY. MOM-ORAL CA. SOCIAL HISTORY GENERAL: TOBACCO USE ARE YOU A:FORMER SMOKER ARE YOU A:FORMER SMOKER HOW LONG HAS IT BEEN SINCE YOU LAST SMOKED?5-10 YEARS HOW LONG HAS IT BEEN SINCE YOU LAST SMOKED?5-10 YEARS BMI CARE GOAL FOLLOW-UP ABOVE NORMAL BMI FOLLOW-UPLIFESTYLE EDUCATION REGARDING DIET ABOVE NORMAL BMI FOLLOW-UPLIFESTYLE EDUCATION REGARDING DIET ALCOHOL SCREENING DID YOU HAVE A DRINK CONTAINING ALCOHOL IN THE PAST YEAR?NO DID YOU HAVE A DRINK CONTAINING ALCOHOL IN THE PAST YEAR?NO POINTS0 POINTS0 INTERPRETATIONNEGATIVE INTERPRETATIONNEGATIVE RECREATIONAL DRUG USE DRUG USE?NO DRUG USE?NO CAFFEINE CAFFEINE USE?YES CAFFEINE USE?YES SEXUAL HX HAD SEX IN THE LAST 12 MONTHS (VAGINAL, ORAL, OR ANAL)?YES HAD SEX IN THE LAST 12 MONTHS (VAGINAL, ORAL, OR ANAL)?YES WITHMEN ONLY WITHMEN ONLY HIV / HEP-C SCREENING HIV TEST OFFERED TO PATIENT:YES HIV TEST OFFERED TO PATIENT:YES DATE OFFERED:03/26/2017 DATE OFFERED:03/26/2017 TEST ACCEPTED:NO TEST ACCEPTED:NO HEP-C TEST OFFERED TO PATIENT:YES HEP-C TEST OFFERED TO PATIENT:YES DATE OFFERED:03/26/2017 DATE OFFERED:03/26/2017 REASON:PATIENT DECLINED ALREADY TESTED REASON:PATIENT DECLINED ALREADY TESTED TEST ACCEPTED:NO TEST ACCEPTED:NO REASON:PATIENT DECLINED REASON:PATIENT DECLINED SPIRITISM [id number] NONE [id number] NONE LANGUAGE LANGUAGES SPOKEN:SETSWANA LANGUAGES SPOKEN:SETSWANA LEARNING BARRIERS / SPECIAL NEEDS CHANGE FROM LAST VISIT?NO CHANGE FROM LAST VISIT?YES NEW PT FROM E BARRIERS TO LEARNING?NO BARRIERS TO LEARNING?NO HEARING IMPAIRED?NO HEARING IMPAIRED?NO VISION IMPAIRED?YES VISION IMPAIRED?YES COGNITIVELY IMPAIRED?NO COGNITIVELY IMPAIRED?NO :CORRECTIVE LENSES :CORRECTIVE LENSES READINESS TO LEARN?YES READINESS TO LEARN?YES LEARNING PREFERENCES?NO LEARNING PREFERENCES?NO LEARNING CAPABILITIES PRESENT?YES LEARNING CAPABILITIES PRESENT?YES EMOTIONAL BARRIERS?NO EMOTIONAL BARRIERS?NO SPECIAL DEVICES?NO SPECIAL DEVICES?NO KEYMODULE ASSEMBLY MACHINE TENDER NEEDED?NO KEYMODULE ASSEMBLY MACHINE TENDER NEEDED?NO DOMESTIC VIOLENCE DO YOU FEEL SAFE IN YOUR ENVIRONMENT?YES OCCUPATION: UNEMPLOYED, UNEMPLOYED. DIET: REGULAR, REGULAR. EXERCISE: NO REGULAR EXERCISE, NO REGULAR EXERCISE. MARITAL STATUS: , . OTHERS AT HOME: SPOUSE, SPOUSE. NEW PATIENT PAIN DIARY TODAY'S VISITNOTES FROM 0-10, WHAT LEVEL IS YOUR PAIN TODAY?5 PAIN CLINIC PFS, CLERGY, PUBLIC HEALTH REFERRALS PFS REFERRAL NEEDED?NO CLERGY REFERRAL NEEDED?NO PUBLIC HEALTH REFERRAL NEEDED?NO WAS THE PROVIDER NOTIFIED OF ANY PERTINENT INFO? N/A HAS THE PATIENT BEEN EDUCATED REGARDING HIS/HER PLAN OF CARE?YES HAS THE PATIENT BEEN EDUCATED REGARDING PAIN, THE RISK FOR PAIN, THE IMPORTANCE OF EFFECTIVE PAIN MANAGEMENT, AND THE PAIN ASSESSMENT PROCESS?YES ADVANCE DIRECTIVE ADVANCE DIRECTIVE DISCUSSED WITH PATIENT:YES 07/22/18 PT DOES NOT HAVE ANY ADVANCED DIREDTIVE AND SHE DECLINES INFORMATION ON HCP AT THIS TIME. AD 07/22/18 1221 REVIEWED WITH PT. AD. HOSPITALIZATION/MAJOR DIAGNOSTIC PROCEDURE SURGERIES COPD 08/13/2016 PNEUMONIA/RESP FAILURE 2016 REVIEW OF SYSTEMS REVIEWED BY: PROVIDER: JULIANA JIANG . CONSTITUTIONAL: ANY CHANGE IN YOUR MEDICAL CONDITION? NO . CHILLS NO . FEVER NO . INFECTION: DO YOU HAVE NEW INFECTIONS? NO . DO YOU HAVE HISTORY OF MRSA? NO . MUSCULOSKELETAL: ANY NEW PATTERNS OF PAIN OR NUMBNESS? YES, NUMBNESS AND WEAKNESS LEFT LEG JULIO. AFTER STANDING FOR ANY PERIOD OF TIME. HAS BEEN GOING ON FOR JUST OVER A MONTH NOW. . GASTROENTEROLOGY: ANY NEW CHANGE IN BOWEL CONTROL? NO . GENITOURINARY: ANY NEW CHANGE IN BLADDER CONTROL? NO . IS THERE A CHANCE YOU COULD BE ? NO . HEMATOLOGY/LYMPH: DO YOU TAKE ANY BLOOD THINNERS? (FOR EXAMPLE- COUMADIN, PLAVIX, AGGRENOX, PLATEL, PRADAXA, OR XARELTO) NO . WHEN WAS YOUR LAST DOSE? DATE: TIME: . NEUROLOGY: HAVE YOU FALLEN IN THE PAST 6 MONTHS? NO . ANY NEW EXTREMITY NUMBNESS OR WEAKNESS? NO . CARDIOLOGY: DO YOU HAVE A PACEMAKER OR DEFIBRILLATOR? NO . RESPIRATORY: HAVE YOU BEEN SICK IN THE PAST WEEK? YES, SINUS INFECTION AND CHEST OVER A MONTH NOW . FEVER YES, OVER THE PAST MONTH--HASN'T HAD FOR APPROX. 1 WEEK . FLU LIKE SYMPTOMS? NO . COUGH YES, PRODUCTIVE, MUCUS NOW IS WHITE TO PALE YELLOW . INTEGUMENTARY: DO YOU HAVE ANY RASHES OR OPEN SORES? NO . ALLERGIC/IMMUNO: ARE YOU ALLERGIC TO SHELLFISH OR IV DYE? NO . ANY NEW ALLERGIES? NO . PSYCHIATRIC: DO YOU HAVE THOUGHTS OF HURTING YOURSELF OR SOMEONE ELSE? NO . ARE YOU ABUSED, NEGLECTED, OR IN AN UNSAFE ENVIRONMENT? NO . ENDOCRINOLOGY: ARE YOU DIABETIC? YES . OTHER: DO YOU NEED ANY PRESCRIPTIONS? YES . IF YES, PLEASE LIST: HYDROMORPHONE, OXYCONTIN . ANY NEW PROBLEMS WITH YOUR MEDICATIONS? NO . WHEN DID YOU LAST EAT? ____ . WHEN DID YOU LAST DRINK? ____ . WHAT DID YOU LAST DRINK? ____ . NAME OF PERSON DRIVING YOU HOME? ____ . DO YOU HAVE ANY OTHER QUESTIONS OR CONCERNS NO . VITAL SIGNS WT 233.6 LBS, HT 62", BMI 42.72 INDEX, BP 174/83 MM HG, HR 117 /MIN, RR 20 /MIN, TEMP 96.7 F, OXYGEN SAT % 93%, SAFE IN ENV? (Y/N) Y, NA INITIALS [place] 11:55, REVIEWED BY: RON. EXAMINATION GENERAL EXAMINATION: LUNGS:LUNG SOUNDS ARE CLEAR. HEART:HEART RATE REGULAR. MUSCULOSKELETAL:*. KNEE / SIDHU: KNEE:LEFT. INSPECTION:WELL HEALED SURGICAL SCAR NOTED NONTENDER/NO SWELLING. ASSESSMENTS LEFT KNEE PAIN - M25.562 (PRIMARY) TREATMENT LEFT KNEE PAIN CONTINUE CYMBALTA CAPSULE DELAYED RELEASE PARTICLES, 60 MG, 1 CAPSULE 30MG DAILY, ORALLY, ONCE A DAY REFILL HYDROMORPHONE HCL TABLET, 2 MG, 1 TABLET, ORALLY, Q6H PRN MDD4, 30 DAY(S), 120, REFILLS 0 CONTINUE AMRIX CAPSULE EXTENDED RELEASE 24 HOUR, 15 MG, 2 CAPSULE, ORALLY, ONCE A DAY DECREASE OXYCODONE HCL ER TABLET ER 12 HOUR ABUSE-DETERRENT, 15 MG, 1 TABLET, ORALLY, DAILY MDD1, 30 DAY(S), REFILLS 0 NOTES: [employer] REGISTRY REVIEWED AND DEMONSTRATES COMPLLIANCE. (REF #[id number] ) BRINGS IN MEDICATIONS WHICH IS APPROPRIATE FOR WHAT WAS DISPENSED. RECENT URINE TOXICOLOGY REVIEWED. NO UNAUTHORIZED MEDICATIONS. NO ILLICIT SUBSTANCES AND PRESCRIBED MEDICATIONS WERE PRESENT. URINE TOX TODAY, RISKS AND BENEFITS OF NARCOTIC/OPIOD MEDICATIONS WERE REVIEWED WITH PATIENT - THIS INCLUDES BUT IS NOT LIMITED TO RISK OF DEPENDANCE/DEVELOPMENT OF ADDICTION, MOOD DISTURBANCE AND DEPRESSION, OSTEOPOROSIS, HORMONAL AND LABIDAL CHANGES, RESPIRATORY DEPRESSION AND . PATIENT IS ADVISED NOT TO DRIVE OR DRINK ALCOHOL WHILE ON THESE MEDICATIONS. PROCEDURES PN WORKMANS' COMP OPINION IN YOUR OPINION, WAS THE INCIDENT THAT THE PATIENT DESCRIBED THE COMPETENT MEDICAL CAUSE OF THIS INJURY/ILLNESS? YES ARE THE PATIENT'S COMPLAINTS CONSISTENT WITH HIS/HER HISTORY OF THE INJURY/ILLNESS? YES IS THE PATIENT'S HISTORY OF THE INJURY/ILLNESS CONSISTENT WITH YOUR OBJECTIVE FINDING? YES WHAT IS THE PERCENTAGE OF TEMPORARY IMPAIRMENT? MARKED = 75% IS THE PATIENT WORKING? NO DOCTOR ON SITE: HAYDEN JENSEN MD DISPOSITION & COMMUNICATION FOLLOW UP 2 MONTHS ELECTRONICALLY SIGNED BY DEIDRE MERCEDES ON 08/13/2018 AT 09:06 AM EST DISCLAIMER : THIS IS A VISIT SUMMARY EXTRACTED FROM THE [employer] CHART. IT IS NOT A COPY OF THE [employer] PROGRESS NOTE. ELOISA
== END ==
LOC: M PAIN 11:45
PROVIDERS: ATTEND Nurse Practitioner Family
DX: M25.562 Pain in left knee (principal); E11.9 Type 2 diabetes mellitus without complications; J44.9 Chronic obstructive pulmonary disease, unspecified; E03.9 Hypothyroidism, unspecified; M35.00 Sjogren syndrome, unspecified; G47.33 Obstructive sleep apnea (adult) (pediatric); G43.909 Migraine, unspecified, not intractable, without status migrainosus; G25.81 Restless legs syndrome; E73.9 Lactose intolerance, unspecified; E66.01 Morbid (severe) obesity due to excess calories; Z68.41 Body mass index [BMI] 40.0-44.9, adult; Z79.891 Long term (current) use of opiate analgesic; Z79.84 Long term (current) use of oral hypoglycemic drugs; Z79.899 Other long term (current) drug therapy; Z88.6 Allergy status to analgesic agent; Z88.8 Allergy status to other drugs, medicaments and biological substances; Z91.09 Other allergy status, other than to drugs and biological substances; Z87.891 Personal history of nicotine dependence; Z96.652 Presence of left artificial knee joint

== ENCOUNTER → 2018-11-25 | Outpatient (REF) | payer MEDICARE, BC ==
[~2018-11-25] MED LIST changes: -/ESOM40CA; -/LORA10TA PO; -ASPI1TAB PO; +ASPI81TA26 PO; +CYMB1CAP4 OR; -DULO20CA OR; +LORA-385 PO; +NEXI1CAP3
[2018-11-25 17:49] LABS: BASO # 0.1 10^3/uL (0.0-0.2); BASO % 0.5 % (0.0-1.0); EOS # 0.2 10^3/uL (0.0-0.50); EOS % 1.5 % (0.0-3.0); HEMOGLOBIN 12.9 g/dl (12.0-15.5); LYMPH # 2.7 10^3/uL (1.5-4.5); LYMPH % 25.9 % (24.0-44.0); MEAN CORPUSCULAR HGB CONC 32.3 g/dl (32.0-36.5); MEAN CORPUSCULAR VOLUME 80.5 fl (80.0-96.0); MONO # 0.9 10^3/uL (0.0-0.8); MONO % 8.7 % (0.0-5.0); NEUTROPHILS # 6.5 10^3/uL (1.8-7.7); NEUTROPHILS % 62.9 % (36.0-66.0); PLATELET COUNT, AUTOMATED 290 10^3/uL (150-450); RED BLOOD COUNT 4.97 10^6/uL (4.00-5.40); WHITE BLOOD COUNT 10.3 10^3/uL (4.0-10.0)
[2018-11-25 18:08] LABS: PERCENT SATURATION 10.1 % (13.2-45.0)
[2018-11-25 18:16] LABS: HEMOGLOBIN A1c 7.5 %; THYROID STIMULATING HORMONE 1.06 uIU/ML (0.358-3.740)
[2018-11-25 19:06] LABS: MALB URINE SIEMENS 38.7 MG/L; MAU/CREAT RATIO 18.7 MCG/MG (0.0-30.0)
== END ==
LOC: M SFHCPLAZ 15:27
PROVIDERS: ATTEND Physician Assistant Medical
DX: G25.81 Restless legs syndrome (principal); E11.9 Type 2 diabetes mellitus without complications; E03.9 Hypothyroidism, unspecified
CPT/HCPCS: 36415; 82043; 82728; 83036; 83550; 84439; 84443; 85025; G0463

== ENCOUNTER → 2018-12-08 | Outpatient (CLI) | payer OTHER, BC ==
--- NOTE | 2018-12-25 23:44 | ECWPNPC ---
PATIENT NAME: SARAVANAN DAUGHERTY : 1950 GENDER: FEMALE VISIT DATE: 12/08/2018 DISCHARGE DATE: 12/08/18 1138 VISIT LOCKED DATE TIME: PHYSICIAN: JULIANA COOLEY RESOURCE: JULIANA COOLEY REASON FOR APPOINTMENT 1. WC LUMBAR PAIN HISTORY OF PRESENT ILLNESS HISTORY OF PRESENT ILLNESS: HERE FOR ROUTINE F/U AND MANAGEMENT OF PERSISTENT LEFT KNEE PAIN. RATING PAIN VAS 5/10.REPORTS EPISODIC SHOOTING PAIN LEFT KNEE RADIATING UP LEFT THIGH.THIS IS CHRONIC PAIN RELATED TO WORK INJURY 04-29-05.CURRENTLY USING OXYCONTIN 15MG QD,HYDROMORPHONE 2MG Q12H PRN MDD2,CYMBALTA 60MG QD AND AMRIX 15MG 2 TAB DAILY.FEELS CURRENT PAIN MEDICATION REGIMEN IS EFFECTIVE AT REDUCING PAIN AND KEEPING HER COMFORTABLE.DENIES SIDE EFFECTS.PATIENT NOT DEMONSTRATING ABBERANT BEHAVIOR. PAIN THE PATIENT DESCRIBES THE PAIN... THE PATIENT DESCRIBES THE PAIN... THE PATIENT DESCRIBES THE PAIN... THE PATIENT DESCRIBES THE PAIN... THE PATIENT DESCRIBES THE PAIN... THE PATIENT DESCRIBES THE PAIN... THE PATIENT DESCRIBES THE PAIN... THE PATIENT DESCRIBES THE PAIN... THE PATIENT DESCRIBES THE PAIN... THE PATIENT DESCRIBES THE PAIN... THE PATIENT DESCRIBES THE PAIN... THE PATIENT DESCRIBES THE PAIN... FALL RISK SCREENING: SCREENING :NO FALLS REPORTED IN THE LAST YEAR CURRENT MEDICATIONS TAKING IPRATROPIUM-ALBUTEROL 0.5-2.5 (3) MG/3ML SOLUTION 3 ML INHALATION EVERY 4 HRS TAKING ADVAIR DISKUS 250-50 MCG/DOSE AEROSOL POWDER BREATH ACTIVATED 1 PUFF INHALATION DAILY TAKING ONETOUCH VERIO - STRIP 1 STRIP IN VITRO DAILY TAKING ONETOUCH VERIO - STRIP 1 LANCET IN VITRO DAILY TAKING METFORMIN HCL 1000 MG TABLET 1 TABLET WITH MEALS ORALLY TWICE A DAY TAKING LEVOTHYROXINE SODIUM 25 MCG CAPSULE 1 CAPSULE ON AN EMPTY STOMACH IN THE MORNING ORALLY ONCE A DAY TAKING BLOOD GLUCOSE TEST - STRIP 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 TWICE DAILY TAKING RANITIDINE HCL 150 MG CAPSULE 1 CAPSULE ORALLY TWICE A DAY TAKING PROBIOTIC - CAPSULE 1 CAP ORALLY DAILY TAKING LANCETS - MISCELLANEOUS 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 TWICE DAILY TAKING NYSTATIN [id number] UNIT/GM POWDER 1 APPLICATION TO AFFECTED AREA EXTERNALLY TWICE A DAY, NOTES: PRN TAKING BENADRYL ALLERGY 25 MG TABLET 1 TABLET NEEDED ORALLY EVERY 8 HRS TAKING CLARITIN 10 MG TABLET 1 TABLET ORALLY ONCE A DAY, NOTES: WHEN NEEDED TAKING LASIX 20 MG TABLET 1 TABLET ORALLY ONCE A DAY TAKING ROPINIROLE HCL 1 MG TABLET 1.5 TABLETS ORALLY BID TAKING GUAIFENESIN 400 MG TABLET WITH PHENYLEPHRINDE 10 MGS 1 TABLET NEEDED ORALLY EVERY 12 HOURS NEEDED TAKING MAY USE KEO OIL 5-10 DROPS _ RUB INTO SWOLLEN AREAS TWICE A DAY NEEDED TAKING ARNICA - LIQUID 5-10 DROPS RUBBED IN HAND TOPICALLY TO PAINFUL AREA NEEDED FOR PAIN TAKING MAY HAVE TAKING AMRIX 15 MG CAPSULE EXTENDED RELEASE 24 HOUR 2 CAPSULE ORALLY BID TAKING HYDROMORPHONE HCL 2 MG TABLET 1 TABLET ORALLY Q6H PRN MDD4 TAKING OXYCODONE HCL ER 15 MG TABLET ER 12 HOUR ABUSE-DETERRENT 1 TABLET ORALLY DAILY MDD1 TAKING VENTOLIN HFA 108 (90 BASE) MCG/ACT AEROSOL SOLUTION 2 PUFFS NEEDED INHALATION EVERY 6 HRS TAKING CYMBALTA 60 MG CAPSULE DELAYED RELEASE PARTICLES 1 CAPSULE ORALLY DAILY, NOTES: IN THE MORNING TAKING HYDROXYZINE HCL 50 MG TABLET 1 TABLET NEEDED ORALLY QID TAKING CYMBALTA 30 MG CAPSULE DELAYED RELEASE PARTICLES 1 CAPSULE ORALLY ONCE A DAY, NOTES: IN THE EVENING DISCONTINUED ROPINIROLE HCL 1 MG TABLET 1 TABLET 1.5 BID ORALLY BID, NOTES: DUPLICATE MEDICATION LIST REVIEWED AND RECONCILED WITH THE PATIENT PAST MEDICAL HISTORY 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 JALLOH T2DM HYPOTHYROIDISM 10 CM RETROCARDIAC HIATAL HERNIA SJOGREN SYNDROME RESTLESS LEGS ARNEL MIGRAINES ALLERGIES NICKEL: SWELLING - ALLERGY STATINS (FOR ALLERGY USE ONLY): INCREASED LFTS, MUSCULAR PAIN - ALLERGY NSAIDS: ABDOMINAL PAIN, GI ULCER - ALLERGY LEVAQUIN: FACIAL SWELLING - ALLERGY LYRICA: ITCHING - ALLERGY LACTOSE: DIARRHEA, ABDOMINAL PAIN - ALLERGY LATEX (FOR ALLERGY USE ONLY): RASH - ALLERGY SURGICAL HISTORY TONSILLECTOMY GANGLION CYST WITH CARPAL RELEASE, LEFT WRIST SECTION X2 APPENDECTOMY LEFT ARTHROSCOPY LEFT KNEE REPLACEMENT X2 2008, 2013 [employer] FAMILY HISTORY FATHER: , [place], DIABETES, DIAGNOSED WITH HEART DISEASE, DIABETES, HYPERTENSION MOTHER: , CANCER, CANCER SIBLINGS: ALIVE, HEART DISEASE, CANCER SON(S): ALIVE DAUGHTER(S): ALIVE, LUPUS 2 BROTHER(S) - HEALTHY. 1 SON(S) , 1 DAUGHTER(S) - HEALTHY. MOM-ORAL CA\\\\N. SOCIAL HISTORY GENERAL: TOBACCO USE ARE YOU A:FORMER SMOKER HOW LONG HAS IT BEEN SINCE YOU LAST SMOKED?5-10 YEARS HIV / HEP-C SCREENING HIV TEST OFFERED TO PATIENT:YES DATE OFFERED:03/26/2017 TEST ACCEPTED:NO HEP-C TEST OFFERED TO PATIENT:YES DATE OFFERED:03/26/2017 REASON:PATIENT DECLINED ALREADY TESTED TEST ACCEPTED:NO REASON:PATIENT DECLINED OTHERS AT HOME: SPOUSE, SPOUSE. DIET: REGULAR, REGULAR. LANGUAGE LANGUAGES SPOKEN:FAROESE DOMESTIC VIOLENCE DO YOU FEEL SAFE IN YOUR ENVIRONMENT?YES NEW PATIENT PAIN DIARY TODAY'S VISITNOTES FROM 0-10, WHAT LEVEL IS YOUR PAIN TODAY?5 BMI CARE GOAL FOLLOW-UP ABOVE NORMAL BMI FOLLOW-UPLIFESTYLE EDUCATION REGARDING DIET RECREATIONAL DRUG USE DRUG USE?NO EXERCISE: NO REGULAR EXERCISE, NO REGULAR EXERCISE. LEARNING BARRIERS / SPECIAL NEEDS CHANGE FROM LAST VISIT?NO BARRIERS TO LEARNING?NO HEARING IMPAIRED?NO VISION IMPAIRED?YES COGNITIVELY IMPAIRED?NO :CORRECTIVE LENSES READINESS TO LEARN?YES LEARNING PREFERENCES?NO LEARNING CAPABILITIES PRESENT?YES EMOTIONAL BARRIERS?NO SPECIAL DEVICES?NO SNOW TECHNICIAN NEEDED?NO PAIN CLINIC PFS, CLERGY, PUBLIC HEALTH REFERRALS PFS REFERRAL NEEDED?NO CLERGY REFERRAL NEEDED?NO PUBLIC HEALTH REFERRAL NEEDED?NO WAS THE PROVIDER NOTIFIED OF ANY PERTINENT INFO? N/A HAS THE PATIENT BEEN EDUCATED REGARDING HIS/HER PLAN OF CARE?YES HAS THE PATIENT BEEN EDUCATED REGARDING PAIN, THE RISK FOR PAIN, THE IMPORTANCE OF EFFECTIVE PAIN MANAGEMENT, AND THE PAIN ASSESSMENT PROCESS?YES LATEX QUESTIONNAIRE LATEX ALLERGY : HAVE YOU EVER DEVELOPED ANY TYPE OF REACTION AFTER HANDLING LATEX PRODUCTS SUCH RUBBER GLOVES, CONDOMS, DIAPHRAGMS, BALLOONS, SOCKS, OR UNDERWEAR?YES SEE ALLERGIES, RASH, BURNING DATE ASKED : 11/25/2018 CAFFEINE CAFFEINE USE?YES ADVANCE DIRECTIVE ADVANCE DIRECTIVE DISCUSSED WITH PATIENT:YES PT DOES NOT HAVE ANY ADVANCED DIREDTIVE AND SHE DECLINES INFORMATION ON HCP AT THIS TIME. 12/08/18 BV YAZIDISM [id number] NONE MARITAL STATUS: , . ALCOHOL SCREENING DID YOU HAVE A DRINK CONTAINING ALCOHOL IN THE PAST YEAR?NO POINTS0 INTERPRETATIONNEGATIVE OCCUPATION: UNEMPLOYED, UNEMPLOYED. SEXUAL HX HAD SEX IN THE LAST 12 MONTHS (VAGINAL, ORAL, OR ANAL)?YES WITHMEN ONLY 07/22/18 1221 REVIEWED WITH PT. LALITHA WITH PATIENT 12/08/18 1049 BV. HOSPITALIZATION/MAJOR DIAGNOSTIC PROCEDURE SURGERIES COPD 08/13/2016 PNEUMONIA/RESP FAILURE 2016 REVIEW OF SYSTEMS REVIEWED BY: PROVIDER: JULIANA JIANG . CONSTITUTIONAL: ANY CHANGE IN YOUR MEDICAL CONDITION? NO . CHILLS NO . FEVER NO . INFECTION: DO YOU HAVE NEW INFECTIONS? NO . DO YOU HAVE HISTORY OF MRSA? NO . MUSCULOSKELETAL: ANY NEW PATTERNS OF PAIN OR NUMBNESS? NO . GASTROENTEROLOGY: ANY NEW CHANGE IN BOWEL CONTROL? NO . GENITOURINARY: ANY NEW CHANGE IN BLADDER CONTROL? NO . IS THERE A CHANCE YOU COULD BE ? NO . HEMATOLOGY/LYMPH: DO YOU TAKE ANY BLOOD THINNERS? (FOR EXAMPLE- COUMADIN, PLAVIX, AGGRENOX, PLATEL, PRADAXA, OR XARELTO) NO . WHEN WAS YOUR LAST DOSE? DATE: TIME: . NEUROLOGY: HAVE YOU FALLEN IN THE PAST 12 MONTHS? YES, PT HAD A FALL ABOUT A MONTH AGO, OUT OF BED. HIT HER JAW ON NIGHTSTAND. DENIES ANY ED OR URGENT CARE VISIT. . ANY NEW EXTREMITY NUMBNESS OR WEAKNESS? NO . CARDIOLOGY: DO YOU HAVE A PACEMAKER OR DEFIBRILLATOR? NO . RESPIRATORY: HAVE YOU BEEN SICK IN THE PAST WEEK? NO . FEVER NO . FLU LIKE SYMPTOMS? NO . COUGH NO . INTEGUMENTARY: DO YOU HAVE ANY RASHES OR OPEN SORES? NO . ALLERGIC/IMMUNO: ARE YOU ALLERGIC TO IV DYE? NO . ANY NEW ALLERGIES? NO . PSYCHIATRIC: DO YOU HAVE THOUGHTS OF HURTING YOURSELF OR SOMEONE ELSE? NO . ARE YOU ABUSED, NEGLECTED, OR IN AN UNSAFE ENVIRONMENT? NO . ENDOCRINOLOGY: ARE YOU DIABETIC? YES . OTHER: DO YOU NEED ANY PRESCRIPTIONS? YES, OXYCODONE, HYDROMORPHONE . IF YES, PLEASE LIST: ____ . ANY NEW PROBLEMS WITH YOUR MEDICATIONS? NO . WHEN DID YOU LAST EAT? ____ . WHEN DID YOU LAST DRINK? ____ . WHAT DID YOU LAST DRINK? ____ . NAME OF PERSON DRIVING YOU HOME? ____ . DO YOU HAVE ANY OTHER QUESTIONS OR CONCERNS NO . VITAL SIGNS WT 237.8 LBS, HT 62", BMI 43.49 INDEX, BP 174/85 MM HG, HR 115 /MIN, RR 20 /MIN, TEMP 96.7 F, OXYGEN SAT % 91, NA INITIALS MP 1029, REVIEWED BY: BVNURSE BV NOTIFIED OF HIGH BP AND PULSE. EXAMINATION GENERAL EXAMINATION: LUNGS:LUNG SOUNDS ARE CLEAR. HEART:HEART RATE REGULAR. MUSCULOSKELETAL:*. KNEE / SIDHU: KNEE:LEFT. INSPECTION:WELL HEALED SURGICAL SCAR NOTED NONTENDER/NO SWELLING. ASSESSMENTS LEFT KNEE PAIN - M25.562 (PRIMARY) TREATMENT LEFT KNEE PAIN REFILL HYDROMORPHONE HCL TABLET, 2 MG, 1 TABLET, ORALLY, Q6H PRN MDD4, 30 DAY(S), 120, REFILLS 0 REFILL OXYCODONE HCL ER TABLET ER 12 HOUR ABUSE-DETERRENT, 15 MG, 1 TABLET, ORALLY, DAILY MDD1, 30 DAY(S), 30, REFILLS 0 NOTES: ISTOP REGISTRY REVIEWED AND DEMONSTRATES COMPLLIANCE. (REF #[id number] ) BRINGS IN MEDICATIONS WHICH IS APPROPRIATE FOR WHAT WAS DISPENSED. RECENT URINE TOXICOLOGY REVIEWED. NO UNAUTHORIZED MEDICATIONS. NO ILLICIT SUBSTANCES AND PRESCRIBED MEDICATIONS WERE PRESENT. FORMAL PILL COUNT ID, RISKS AND BENEFITS OF NARCOTIC/OPIOD MEDICATIONS WERE REVIEWED WITH PATIENT - THIS INCLUDES BUT IS NOT LIMITED TO RISK OF DEPENDANCE/DEVELOPMENT OF ADDICTION, MOOD DISTURBANCE AND DEPRESSION, OSTEOPOROSIS, HORMONAL AND LABIDAL CHANGES, RESPIRATORY DEPRESSION AND . PATIENT IS ADVISED NOT TO DRIVE OR DRINK ALCOHOL WHILE ON THESE MEDICATIONS. PROCEDURES PN WORKMANS' COMP OPINION IN YOUR OPINION, WAS THE INCIDENT THAT THE PATIENT DESCRIBED THE COMPETENT MEDICAL CAUSE OF THIS INJURY/ILLNESS? YES IN YOUR OPINION, WAS THE INCIDENT THAT THE PATIENT DESCRIBED THE COMPETENT MEDICAL CAUSE OF THIS INJURY/ILLNESS? YES ARE THE PATIENT'S COMPLAINTS CONSISTENT WITH HIS/HER HISTORY OF THE INJURY/ILLNESS? YES ARE THE PATIENT'S COMPLAINTS CONSISTENT WITH HIS/HER HISTORY OF THE INJURY/ILLNESS? YES IS THE PATIENT'S HISTORY OF THE INJURY/ILLNESS CONSISTENT WITH YOUR OBJECTIVE FINDING? YES IS THE PATIENT'S HISTORY OF THE INJURY/ILLNESS CONSISTENT WITH YOUR OBJECTIVE FINDING? YES WHAT IS THE PERCENTAGE OF TEMPORARY IMPAIRMENT? MODERATE TO MARKED = 66.7% , MODERATE TO MARKED = 66.7% WHAT IS THE PERCENTAGE OF TEMPORARY IMPAIRMENT? MODERATE TO MARKED = 66.7% , MODERATE TO MARKED = 66.7% IS THE PATIENT WORKING? NO , NO IS THE PATIENT WORKING? NO , NO DOCTOR ON SITE: HAYDEN JENSEN MD DOCTOR ON SITE: HAYDEN JENSEN MD PROCEDURE CODES FA211 ESTABILISHED PATIENT [facility] CHARGE DISPOSITION & COMMUNICATION FOLLOW UP 3 MONTHS ELECTRONICALLY SIGNED BY DEIDRE MERCEDES ON 12/25/2018 AT 12:21 PM EDT DISCLAIMER : THIS IS A VISIT SUMMARY EXTRACTED FROM THE [employer] CHART. IT IS NOT A COPY OF THE [employer] PROGRESS NOTE. ELOISA
== END ==
LOC: M PAIN 10:30
PROVIDERS: ATTEND Nurse Practitioner Family
DX: M25.562 Pain in left knee (principal); G89.29 Other chronic pain; J44.9 Chronic obstructive pulmonary disease, unspecified; E11.9 Type 2 diabetes mellitus without complications; E03.9 Hypothyroidism, unspecified; G25.81 Restless legs syndrome; G47.33 Obstructive sleep apnea (adult) (pediatric); G43.909 Migraine, unspecified, not intractable, without status migrainosus; Z96.652 Presence of left artificial knee joint; Z87.891 Personal history of nicotine dependence; Z88.1 Allergy status to other antibiotic agents; Z88.6 Allergy status to analgesic agent; Z88.8 Allergy status to other drugs, medicaments and biological substances; Z91.011 Allergy to milk products; Z91.040 Latex allergy status; E66.01 Morbid (severe) obesity due to excess calories; Z68.41 Body mass index [BMI] 40.0-44.9, adult; Z79.84 Long term (current) use of oral hypoglycemic drugs; Z79.891 Long term (current) use of opiate analgesic; Z79.899 Other long term (current) drug therapy

== ENCOUNTER → 2019-05-20 | Outpatient (CLI) | payer OTHER, BC ==
[~2019-05-20] MED LIST changes: +AMLO5TAB6 PO; +DOXY100T PO; +DULO1CAP5; +DULO1CAP5 PO; +ROPI1TAB; +ROPI1TAB PO
--- NOTE | 2019-05-30 11:46 | ECWPNPC ---
PATIENT NAME: SARAVANAN DAUGHERTY : 1950 GENDER: FEMALE VISIT DATE: 05/20/2019 DISCHARGE DATE: 05/20/19 1436 VISIT LOCKED DATE TIME: PHYSICIAN: JULIANA COOLEY RESOURCE: JULIANA COOLEY REASON FOR APPOINTMENT 1. W/C L KNEE HISTORY OF PRESENT ILLNESS HISTORY OF PRESENT ILLNESS: HERE FOR ROUTINE F/U AND MANAGEMENT OF PERSISTENT LEFT KNEE PAIN. RATING PAIN VAS 5/10.REPORTS EPISODIC SHOOTING PAIN LEFT KNEE RADIATING UP LEFT THIGH.THIS IS CHRONIC PAIN RELATED TO WORK INJURY 04-29-05.CURRENTLY USING OXYCONTIN 15MG QD,HYDROMORPHONE 2MG Q12H PRN MDD2,CYMBALTA 60MG QD AND AMRIX 15MG 2 TAB DAILY.FEELS CURRENT PAIN MEDICATION REGIMEN IS EFFECTIVE AT REDUCING PAIN AND KEEPING HER COMFORTABLE.DENIES SIDE EFFECTS.PATIENT NOT DEMONSTRATING ABBERANT BEHAVIOR. PAIN THE PATIENT DESCRIBES THE PAIN... THE PATIENT DESCRIBES THE PAIN... THE PATIENT DESCRIBES THE PAIN... THE PATIENT DESCRIBES THE PAIN... THE PATIENT DESCRIBES THE PAIN... THE PATIENT DESCRIBES THE PAIN... THE PATIENT DESCRIBES THE PAIN... THE PATIENT DESCRIBES THE PAIN... THE PATIENT DESCRIBES THE PAIN... THE PATIENT DESCRIBES THE PAIN... THE PATIENT DESCRIBES THE PAIN... THE PATIENT DESCRIBES THE PAIN... THE PATIENT DESCRIBES THE PAIN... THE PATIENT DESCRIBES THE PAIN... FALL RISK SCREENING: SCREENING :NO FALLS REPORTED IN THE LAST YEAR CURRENT MEDICATIONS TAKING ONETOUCH VERIO - STRIP 1 STRIP IN VITRO DAILY TAKING ONETOUCH VERIO - STRIP 1 LANCET IN VITRO DAILY TAKING METFORMIN HCL 1000 MG TABLET 1 TABLET WITH MEALS ORALLY TWICE A DAY TAKING VENTOLIN HFA 108 (90 BASE) MCG/ACT AEROSOL SOLUTION 2 PUFFS NEEDED INHALATION EVERY 6 HRS TAKING RANITIDINE HCL 150 MG CAPSULE 1 CAPSULE ORALLY TWICE A DAY TAKING PROBIOTIC - CAPSULE 1 CAP ORALLY DAILY TAKING NYSTATIN [id number] UNIT/GM POWDER 1 APPLICATION TO AFFECTED AREA EXTERNALLY TWICE A DAY, NOTES: PRN TAKING BENADRYL ALLERGY 25 MG TABLET 1 TABLET NEEDED ORALLY EVERY 8 HRS TAKING MAY USE KEO OIL 5-10 DROPS _ RUB INTO SWOLLEN AREAS TWICE A DAY NEEDED TAKING ARNICA - LIQUID 5-10 DROPS RUBBED IN HAND TOPICALLY TO PAINFUL AREA NEEDED FOR PAIN TAKING IPRATROPIUM-ALBUTEROL 0.5-2.5 (3) MG/3ML SOLUTION 3 ML INHALATION EVERY 8 HRS TAKING ADVAIR DISKUS 250-50 MCG/DOSE AEROSOL POWDER BREATH ACTIVATED 1 PUFF INHALATION DAILY TAKING CYMBALTA 60 MG CAPSULE DELAYED RELEASE PARTICLES 1 CAPSULE 30MG DAILY ORALLY ONCE DAILY TAKING AMRIX 15 MG CAPSULE EXTENDED RELEASE 24 HOUR 2 CAPSULE ORALLY ONCE DAILY TAKING HYDROXYZINE HCL 50 MG TABLET 1 TABLET NEEDED ORALLY QID TAKING ROPINIROLE HCL 1 MG TABLET 1 TABLET 1.5 BID ORALLY BID TAKING HYDROMORPHONE HCL 2 MG TABLET 1 TABLET ORALLY Q8H PRN MDD3 TAKING CYMBALTA 30 MG CAPSULE DELAYED RELEASE PARTICLES 1 CAPSULE ORALLY ONCE A DAY TAKING OXYCODONE HCL ER 15 MG TABLET ER 12 HOUR ABUSE-DETERRENT 1 TABLET ORALLY DAILY MDD1 TAKING LEVOTHYROXINE SODIUM 25 MCG CAPSULE 1 CAPSULE ON AN EMPTY STOMACH IN THE MORNING ORALLY ONCE A DAY NOT-TAKING TOPAMAX 25 MG TABLET 1 TABLET ORALLY BID NOT-TAKING LASIX 20 MG TABLET 1 TABLET ORALLY ONCE A DAY NOT-TAKING POTASSIUM CHLORIDE ER 10 MEQ TABLET EXTENDED RELEASE 1 TABLET WITH FOOD ORALLY DAILY NOT-TAKING DOXYCYCLINE MONOHYDRATE 100 MG TABLET 1 TABLET ORALLY BID MEDICATION LIST REVIEWED AND RECONCILED WITH THE PATIENT PAST MEDICAL HISTORY 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 JALLOH T2DM HYPOTHYROIDISM 10 CM RETROCARDIAC HIATAL HERNIA SJOGREN SYNDROME RESTLESS LEGS ARNEL MIGRAINES ALLERGIES NICKEL: SWELLING - ALLERGY STATINS (FOR ALLERGY USE ONLY): INCREASED LFTS, MUSCULAR PAIN - ALLERGY NSAIDS: ABDOMINAL PAIN, GI ULCER - ALLERGY LEVAQUIN: FACIAL SWELLING - ALLERGY LYRICA: ITCHING - ALLERGY LACTOSE: DIARRHEA, ABDOMINAL PAIN - ALLERGY LATEX (FOR ALLERGY USE ONLY): RASH - ALLERGY SURGICAL HISTORY TONSILLECTOMY GANGLION CYST WITH CARPAL RELEASE, LEFT WRIST SECTION X2 APPENDECTOMY LEFT ARTHROSCOPY LEFT KNEE REPLACEMENT X2 2008, 2013 [employer] FAMILY HISTORY FATHER: , [place], DIABETES, DIAGNOSED WITH DIABETES, HYPERTENSION, UNSPECIFIED HEART DISEASE MOTHER: , CANCER, OTHER MALIGNANT NEOPLASM OF UNSPECIFIED SITE SIBLINGS: ALIVE, HEART DISEASE, CANCER SON(S): ALIVE DAUGHTER(S): ALIVE, LUPUS 2 BROTHER(S) - HEALTHY. 1 SON(S) , 1 DAUGHTER(S) - HEALTHY. MOM-ORAL CA\\\\N. SOCIAL HISTORY GENERAL: TOBACCO USE ARE YOU A:FORMER SMOKER HOW LONG HAS IT BEEN SINCE YOU LAST SMOKED?5-10 YEARS HIV / HEP-C SCREENING HIV TEST OFFERED TO PATIENT:YES DATE OFFERED:03/26/2017 TEST ACCEPTED:NO HEP-C TEST OFFERED TO PATIENT:YES DATE OFFERED:03/26/2017 REASON:PATIENT DECLINED ALREADY TESTED TEST ACCEPTED:NO REASON:PATIENT DECLINED OTHERS AT HOME: SPOUSE, SPOUSE. DIET: REGULAR, REGULAR. LANGUAGE LANGUAGES SPOKEN:[place]KISTANI DOMESTIC VIOLENCE DO YOU FEEL SAFE IN YOUR ENVIRONMENT?YES NEW PATIENT PAIN DIARY TODAY'S VISITNOTES FROM 0-10, WHAT LEVEL IS YOUR PAIN TODAY?5 BMI CARE GOAL FOLLOW-UP ABOVE NORMAL BMI FOLLOW-UPLIFESTYLE EDUCATION REGARDING DIET RECREATIONAL DRUG USE DRUG USE?NO EXERCISE: NO REGULAR EXERCISE, NO REGULAR EXERCISE. LEARNING BARRIERS / SPECIAL NEEDS CHANGE FROM LAST VISIT?NO BARRIERS TO LEARNING?NO HEARING IMPAIRED?NO VISION IMPAIRED?YES COGNITIVELY IMPAIRED?NO :CORRECTIVE LENSES READINESS TO LEARN?YES LEARNING PREFERENCES?NO LEARNING CAPABILITIES PRESENT?YES EMOTIONAL BARRIERS?NO SPECIAL DEVICES?NO DRAFTER TOPOGRAPHICAL NEEDED?NO PAIN CLINIC PFS, CLERGY, PUBLIC HEALTH REFERRALS PFS REFERRAL NEEDED?NO CLERGY REFERRAL NEEDED?NO PUBLIC HEALTH REFERRAL NEEDED?NO WAS THE PROVIDER NOTIFIED OF ANY PERTINENT INFO? N/A HAS THE PATIENT BEEN EDUCATED REGARDING HIS/HER PLAN OF CARE?YES HAS THE PATIENT BEEN EDUCATED REGARDING PAIN, THE RISK FOR PAIN, THE IMPORTANCE OF EFFECTIVE PAIN MANAGEMENT, AND THE PAIN ASSESSMENT PROCESS?YES LATEX QUESTIONNAIRE LATEX ALLERGY : HAVE YOU EVER DEVELOPED ANY TYPE OF REACTION AFTER HANDLING LATEX PRODUCTS SUCH RUBBER GLOVES, CONDOMS, DIAPHRAGMS, BALLOONS, SOCKS, OR UNDERWEAR?YES SEE ALLERGIES, RASH, BURNING DATE ASKED : 11/25/2018 CAFFEINE CAFFEINE USE?YES ADVANCE DIRECTIVE ADVANCE DIRECTIVE DISCUSSED WITH PATIENT:YES HEALTH CARE PROXY ROMEO [facility] [place] [id number] NONE MARITAL STATUS: , . ALCOHOL SCREENING DID YOU HAVE A DRINK CONTAINING ALCOHOL IN THE PAST YEAR?NO POINTS0 INTERPRETATIONNEGATIVE OCCUPATION: UNEMPLOYED, UNEMPLOYED. SEXUAL HX HAD SEX IN THE LAST 12 MONTHS (VAGINAL, ORAL, OR ANAL)?YES WITHMEN ONLY 07/22/18 1221 REVIEWED WITH PT. ADREVIEWED WITH PATIENT 12/08/18 1049 BVREVIEWED WITH PT 02/21/19 1039 BVREVIEWED WITH PATIENT 05/31/2019 LAS. HOSPITALIZATION/MAJOR DIAGNOSTIC PROCEDURE SURGERIES COPD 08/13/2016 PNEUMONIA/RESP FAILURE 2016 REVIEW OF SYSTEMS REVIEWED BY: PROVIDER: JULIANA JIANG . CONSTITUTIONAL: ANY CHANGE IN YOUR MEDICAL CONDITION? NO . CHILLS NO . FEVER NO . INFECTION: DO YOU HAVE NEW INFECTIONS? NO . DO YOU HAVE HISTORY OF MRSA? NO . MUSCULOSKELETAL: ANY NEW PATTERNS OF PAIN OR NUMBNESS? PT REPORTS SHE FEELS IT IS HARDER TO GET HER PAIN UNDER CONTROL. AND PAIN IS NOW RADIATING UP INTO HIPS FREQUENTLY AND WITH LONGER DURATION. . GASTROENTEROLOGY: ANY NEW CHANGE IN BOWEL CONTROL? NO . GENITOURINARY: ANY NEW CHANGE IN BLADDER CONTROL? NO . IS THERE A CHANCE YOU COULD BE ? NO . HEMATOLOGY/LYMPH: DO YOU TAKE ANY BLOOD THINNERS? (FOR EXAMPLE- COUMADIN, PLAVIX, AGGRENOX, PLATEL, PRADAXA, OR XARELTO) NO . WHEN WAS YOUR LAST DOSE? DATE: TIME: . NEUROLOGY: HAVE YOU FALLEN IN THE PAST 12 MONTHS? YES PT REPORTS A COUPLE OF WEEKS AGO, HER LEFT LEG "WENT NUMB" CAUSING HER TO FALL. NO ED OR MD VISIT, PT DENIES INJURIES. . ANY NEW EXTREMITY NUMBNESS OR WEAKNESS? NO . CARDIOLOGY: DO YOU HAVE A PACEMAKER OR DEFIBRILLATOR? NO . RESPIRATORY: HAVE YOU BEEN SICK IN THE PAST WEEK? PT REPORTS A SINUS INFECTION WITH A LOW GRADE FEVER OVER THE PAST WEEK. . FEVER NO . FLU LIKE SYMPTOMS? NO . COUGH NO . INTEGUMENTARY: DO YOU HAVE ANY RASHES OR OPEN SORES? PT HAS A SMALL 0.5 CM REDDENED CIRCULAR AREA ON RIGHT SIDHU. . ALLERGIC/IMMUNO: ARE YOU ALLERGIC TO IV DYE? NO . ANY NEW ALLERGIES? NO . PSYCHIATRIC: DO YOU HAVE THOUGHTS OF HURTING YOURSELF OR SOMEONE ELSE? NO . ARE YOU ABUSED, NEGLECTED, OR IN AN UNSAFE ENVIRONMENT? NO . ENDOCRINOLOGY: ARE YOU DIABETIC? YES . OTHER: DO YOU NEED ANY PRESCRIPTIONS? NO . IF YES, PLEASE LIST: ____ . ANY NEW PROBLEMS WITH YOUR MEDICATIONS? NO . WHEN DID YOU LAST EAT? ____ . WHEN DID YOU LAST DRINK? ____ . WHAT DID YOU LAST DRINK? ____ . NAME OF PERSON DRIVING YOU HOME? ____ . DO YOU HAVE ANY OTHER QUESTIONS OR CONCERNS NO . VITAL SIGNS WT 223 LBS, HT 62", BMI 40.78 INDEX, BP 170/97 MM HG, HR 104 /MIN, RR 20 /MIN, TEMP 97.2 F, OXYGEN SAT % 94%, SAFE IN ENV? (Y/N) YES, NA INITIALS AW 1327, REVIEWED BY: PANCHO. EXAMINATION GENERAL EXAMINATION: LUNGS:LUNG SOUNDS ARE CLEAR. HEART:HEART RATE REGULAR. MUSCULOSKELETAL:*. KNEE / SIDHU: KNEE:LEFT. INSPECTION:WELL HEALED SURGICAL SCAR NOTED NONTENDER/NO SWELLING. ASSESSMENTS LEFT KNEE PAIN - M25.562 (PRIMARY) TREATMENT LEFT KNEE PAIN CONTINUE CYMBALTA CAPSULE DELAYED RELEASE PARTICLES, 60 MG, 1 CAPSULE 30MG DAILY, ORALLY, ONCE DAILY CONTINUE AMRIX CAPSULE EXTENDED RELEASE 24 HOUR, 15 MG, 2 CAPSULE, ORALLY, ONCE DAILY CONTINUE HYDROMORPHONE HCL TABLET, 2 MG, 1 TABLET, ORALLY, Q8H PRN MDD3 CONTINUE CYMBALTA CAPSULE DELAYED RELEASE PARTICLES, 30 MG, 1 CAPSULE, ORALLY, ONCE A DAY CONTINUE OXYCODONE HCL ER TABLET ER 12 HOUR ABUSE-DETERRENT, 15 MG, 1 TABLET, ORALLY, DAILY MDD1 NOTES: ISTOP REGISTRY REVIEWED AND DEMONSTRATES COMPLLIANCE. BRINGS IN MEDICATIONS WHICH IS APPROPRIATE FOR WHAT WAS DISPENSED. RECENT URINE TOXICOLOGY REVIEWED. NO UNAUTHORIZED MEDICATIONS. NO ILLICIT SUBSTANCES AND PRESCRIBED MEDICATIONS WERE PRESENT. , RISKS OF NARCOTIC/OPIOD MEDICATIONS INCLUDES BUT IS NOT LIMITED TO RISK OF DEPENDANCE/DEVELOPMENT OF ADDICTION, MOOD DISTURBANCE AND DEPRESSION, OSTEOPOROSIS, HORMONAL AND LABIDAL CHANGES, RESPIRATORY DEPRESSION AND . PATIENT IS ADVISED NOT TO DRIVE OR DRINK ALCOHOL WHILE ON THESE MEDICATIONS. PROCEDURES PN WORKMANS' COMP OPINION IN YOUR OPINION, WAS THE INCIDENT THAT THE PATIENT DESCRIBED THE COMPETENT MEDICAL CAUSE OF THIS INJURY/ILLNESS? YES ARE THE PATIENT'S COMPLAINTS CONSISTENT WITH HIS/HER HISTORY OF THE INJURY/ILLNESS? YES IS THE PATIENT'S HISTORY OF THE INJURY/ILLNESS CONSISTENT WITH YOUR OBJECTIVE FINDING? YES WHAT IS THE PERCENTAGE OF TEMPORARY IMPAIRMENT? MODERATE TO MARKED = 66.7% IS THE PATIENT WORKING? NO DOCTOR ON SITE: HAYDEN JENSEN MD PROCEDURE CODES FA211 ESTABILISHED PATIENT [facility] CHARGE DISPOSITION & COMMUNICATION FOLLOW UP 3 MONTHS ELECTRONICALLY SIGNED BY DEIDRE MERCEEDS ON 05/20/2019 AT 02:36 PM EDT DISCLAIMER : THIS IS A VISIT SUMMARY EXTRACTED FROM THE [employer] CHART. IT IS NOT A COPY OF THE [employer] PROGRESS NOTE. ELOISA
== END ==
LOC: M PAIN 13:15
PROVIDERS: ATTEND Nurse Practitioner Family
DX: M25.562 Pain in left knee (principal); E73.9 Lactose intolerance, unspecified; Z79.4 Long term (current) use of insulin; Z79.891 Long term (current) use of opiate analgesic; Z79.899 Other long term (current) drug therapy; Z87.891 Personal history of nicotine dependence; Z91.048 Other nonmedicinal substance allergy status; Z88.8 Allergy status to other drugs, medicaments and biological substances; Z91.040 Latex allergy status

== ENCOUNTER 2019-08-11 16:31 | Inpatient (IN) | payer MEDICARE, BC ==
[~2019-08-11] VITALS: Ht 160 cm; Wt 100.2 kg
[~2019-08-11 16:31] MED LIST changes: -AMLO5TAB6 PO; -DOXY100T PO; -DULO1CAP5; -DULO1CAP5 PO; -ROPI1TAB; -ROPI1TAB PO
[2019-08-11] MEDS ORDERED: ROPI1TAB (16:49)
[2019-08-11] MEDS ORDERED: DULO1CAP5 (16:49)
[2019-08-11] MEDS ORDERED: methylPREDNISolone INJ 125 MG/2 ML VIAL (J2930) IV ONE (17:15)
[2019-08-11] MEDS ORDERED: ALBUTEROL SULFATE 2.5 MG/0.5 ML INH NEB SOLN NEB ONE (17:15)
[2019-08-11] MEDS ORDERED: IPRATROPIUM 0.5MG/ALBUTEROL 2.5MG INH SOL UD 3ML (DUONEB)(J7620) NEB ONE (17:15)
[2019-08-11 17:24] LABS: BASO % 0.4 % (0.0-1.0); EOS # 0.1 10^3/uL (0.0-0.5); EOS % 0.6 % (0.0-3.0); HEMATOCRIT 46.3 % (36.0-47.0); HEMOGLOBIN 15.4 g/dl (12.0-15.5); LYMPH # 1.6 10^3/uL (1.5-5.0); LYMPH % 19.4 % (24.0-44.0); MEAN CORPUSCULAR HEMOGLOBIN 27.7 pg (27.0-33.0); MEAN CORPUSCULAR HGB CONC 33.3 g/dl (32.0-36.5); MEAN CORPUSCULAR VOLUME 83.3 fl (80.0-96.0); MONO # 1.1 10^3/uL (0.0-0.8); MONO % 12.4 % (0.0-5.0); NEUTROPHILS # 5.6 10^3/uL (1.5-8.5); NEUTROPHILS % 66.6 % (36.0-66.0); PLATELET COUNT, AUTOMATED 237 10^3/uL (150-450); RED BLOOD COUNT 5.56 10^6/uL (4.00-5.40); WHITE BLOOD COUNT 8.4 10^3/uL (4.0-10.0)
[2019-08-11 17:41] LABS: BLOOD UREA NITROGEN 8 MG/DL (7-18); CALCIUM LEVEL 9.1 MG/DL (8.8-10.2); CARBON DIOXIDE LEVEL 29 MEQ/L (21-32); CHLORIDE LEVEL 102 MEQ/L (98-107); CK-MB VALUE MASS 2.5 NG/ML (<3.6); CPK CREATINE PHOSPHOKINASE 232 U/L (26-192); CREATININE FOR GFR 0.82 MG/DL (0.55-1.30); GLOMERULAR FILTRATION RATE > 60.0 (>45); GLUCOSE, FASTING 161 MG/DL (70-100); MB/CK RELATIVE INDEX 1.08 (< OR =4); NT-PRO BNP 485 PG/ML (<125); POTASSIUM SERUM 4.1 MEQ/L (3.5-5.1); SODIUM LEVEL 139 MEQ/L (136-145); TROPONIN I < 0.02 NG/ML (< 0.10)
[2019-08-11 18:22] LABS: INFLUENZA A AMPLIFICATION NEGATIVE (NEGATIVE); INFLUENZA B AMPLIFICATION NEGATIVE (NEGATIVE)
--- NOTE | 2019-08-11 18:51 | REP ---
REASON FOR EXAM: Coughing and dyspnea. COMPARISON: Multiple, the latest two view examination obtained 05/25/2017. There are basilar fibrotic changes status quo. There are no acute patchy parenchymal opacities or pleural effusions. The technique utilized in obtaining the radiograph has magnified the cardiac silhouette and accentuated the interstitial markings. There is a hiatal hernia status quo. The cardiac silhouette is again magnified by technique. There is no change in the osseous structures. IMPRESSION: Stable appearing chronic changes. Electronically Signed by Luigi Garcia DO 08/11/2019 07:50 P
[2019-08-11] MEDS ORDERED: ISOVUE-370 76% 100ML VIAL (Q9967) As Ordered ONE (18:52)
[2019-08-11 19:53] LABS: ABG BASE EXCESS -1.4 (-2.0-2.0); ABG HCO3 22.5 MEQ/L (22.0-26.0); ABG O2 SATURATION 92.1 % (95.0-99.0); ABG PARTIAL PRESSURE CO2 35.7 mmHg (35.0-45.0); ABG PARTIAL PRESSURE O2 59.2 mmHg (75.0-100.0); ABG STANDARD HCO3 23.2 MEQ/L (22.0-26.0); ABG TOTAL CO2 23.6 MEQ/L (23.0-31.0); ABG pH (ARTERIAL) 7.418 UNITS (7.350-7.450)
--- NOTE | 2019-08-11 20:28 | REPVR ---
PROCEDURE INFORMATION: Exam: CT Angiography Chest With Contrast Exam date and time: 08/11/2019 7:19 PM Age: 68 years old Clinical indication: Other: Hypoxia; Additional info: Hypoxia; Bloody sputum TECHNIQUE: Imaging protocol: Computed tomographic angiography of the chest with intravenous contrast. 3D rendering: MIP and/or 3D reconstructed images were created by the technologist. Radiation optimization: All CT scans at this facility use at least one of these dose optimization techniques: automated exposure control; mA and/or kV adjustment per patient size (includes targeted exams where dose is matched to clinical indication); or iterative reconstruction. Contrast material: ISOVUE 370; Contrast volume: 75 ml; Contrast route: IV; COMPARISON: CT ANGIO CHEST 05/26/2017 12:30 AM FINDINGS: Pulmonary arteries: There is no evidence of filling defects within the pulmonary arterial circulation to suggest pulmonary embolism. Aorta: No thoracic aortic aneurysm or dissection. Lungs: No focal lung consolidation. Pleural space: No pleural effusion. Heart: Unremarkable. No cardiomegaly. No pericardial effusion. Mediastinum: There is a large hiatal hernia. Lymph nodes: No mediastinal or hilar lymphadenopathy. Bones/joints: Unremarkable. No acute fracture. Soft tissues: Unremarkable. Other findings: No significant findings in the upper abdomen. IMPRESSION: No acute findings. Electronically signed by: Fabby Rod On 08/11/2019 20:28:42 PM
[2019-08-11] MEDS ORDERED: ONDANSETRON 4MG/2ML VIAL (J2405) IV ONE (20:45)
[2019-08-11] MEDS: DULoxetine 30 MG CAP (CYMBALTA) PO SCH (21:00)
[2019-08-11] MEDS: rOPINIRole 1MG TAB PO SCH (21:00)
[2019-08-11] MEDS: oxyCODONE 15 MG CR TAB PO SCH (21:00)
[2019-08-11] MEDS: DOCUSATE SODIUM 100 MG CAP PO SCH (21:00)
--- NOTE | 2019-08-11 21:05 | HPEPDOC ---
[facility] Medical History & Physical Date of Admission Aug 11, 2019 Date of Service: Aug 11, 2019 Primary Care Physician: Loraine Vaughn Attending Physician: FALGUNI MUNSON MD History and Physical TIME OF SERVICE: 9:30 PM CHIEF COMPLAINT: Shortness of breath HISTORY OF PRESENT ILLNESS: This is a 68-year-old female presented to the hospital with complaints of shortness of breath for 2 days associated with sinus congestion, chills, cough productive of yellow sputum, "severe" headache, and difficulties remembering. She denies having any sick contacts, does not smoke, but did travel to visit relatives at a place that is at a lower altitude. She denies having lower extremity edema. 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 Hiatial hernia. Sjogren syndrome. NIDDM Large hiatial hernia. Migraines Obesity Newly diagnosed Hypertension She denies having history of CVA or MD Status post tonsillectomy Status post left wrist ganglion cystectomy. Status post 2 Status post appendectomy. Status post left knee arthroscopic Status post left knee replacement 2 Status post cataract surgery SOCIAL HISTORY: She is a former smoker FAMILY HISTORY: CAD/MD Cancer ALLERGIES: Please see below. HOME MEDICATIONS: Please see below. PHYSICAL EXAMINATION: VITAL SIGNS: Please see below. GEN: well nourished / well developed/ NAD INTEGUMENT: He does not have facial plethora HEENT:NCAT / lips acyanotic / does not have pursed lip breathing /mucus m embranes moist and pink CVS: RRR/cannot appreciate P-pulmonale /radial and dorsalis pedis pulses intact / no lower extremity edema LUNGS: there is no nasal flairing /she is able to speak full sentences without stopping to take a breath /she is coughing occasionally / she is not using accessory muscles /there is equal air entry bilaterally / the lungs are clear to auscultation / the lungs are not hyper resonant on percussion /she is not wheezing and does not have rhonchi ABDOMEN: the abdomen is soft & not tender with palpation MSK/EXTREMITIES: Her gait is normal NEURO: CN 2-12 are grossly intact / speech is not dysarthric PSYCH: alert and oriented to person place and time/ able to understand and follow all commands LABORATORY DATA: See below. IMAGING: Chest x-ray " IMPRESSION: Stable appearing chronic changes." CT chest " IMPRESSION: No acute findings" MICROBIOLOGY: Please see below. ASSESSMENT: Ms. Miller is a 68 yr old with a past medical history of asthma/COPD, Sjogren's, hypothyroidism, diabetes, migraines, obesity, and newly diagnosed hypertension admitted for management of acute COPD/asthma . PLAN: 1. Acute hypoxemic respiratory failure secondary to Acute COPD/Asthma Trigger may be a viral infection or changes in the weather She is a former smoker and reports being told that she has COPD by some physicians asthma by other physicians Discussion with ER provider. Her O2 sats were in the 80s despite receiving nebs and steroids. Her ABG showed mild hypoxemia Chest x-ray, CTA of the chest and influenza panel were unremarkable Plan: admit to medical floor/ supplemental O2 / aspiration precautions / COPD diet / Dunebs Q6H, levalbuterol Q4HP, Prednisone + PPI / will give doxycycline because the patient has a (change in sputum color and is allergic to levoflox acin / Tessalon Pearls / she should be referred to refer to [facility] Lead for repeat PFTs and Pulmonary Rehab when ready for d/c 2. Newly diagnosed hypertension. Plan: Start Amlodipine/will give 1 dose of IV metoprolol now 3. Hypothyroidism Plan: Continue levothyroxine. 4. NIDDM She is not on any medications. Her A1c was 7.5 in November 2018 Plan: diabetic diet / f/u accuchecks & A1C / hypoglycemia protocol / sliding scale insulin 5. 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 & referral for Bariatric Surgeon / recommend cardiovascular exercise for 40 min 4-5 days a week DVT PROPHYLAXIS: Lovenox DISPOSITION: Home after more than 2 midnight's stay Vital Signs Vital Signs Date Time Temp Pulse Resp B/P (MAP) Pulse Ox O2 Delivery O2 Flow Rate FiO2 08/11/19 20:00 109 193/116 (141) 88 Room Air 08/11/19 17:15 16 08/11/19 16:38 99.5 Laboratory Data Labs 24H Laboratory Tests 2 08/11/19 17:03: Immature Granulocyte % (Auto) 0.6, Neutrophils (%) (Auto) 66.6H, Lymphocytes (%) (Auto) 19.4L, Monocytes (%) (Auto) 12.4H, Eosinophils (%) (Auto) 0.6, Basophils (%) (Auto) 0.4, Neutrophils # (Auto) 5.6, Lymphocytes # (Auto) 1.6, Monocytes # (Auto) 1.1H, Eosinophils # (Auto) 0.1, Basophils # (Auto) 0.0, Nucleated Red Blood Cells % (auto) 0.0, Anion Gap 8, Glomerular Filtration Rate > 60.0, Calcium Level 9.1, Total Creatine Kinase 232H, Creatine Kinase MB 2.5, Creatine Kinase MB Relative Index 1.08, Troponin I < 0.02, [id number]-Type Natriuretic Peptide 485H, Thyroid Stimulating Hormone (TSH) 1.100 08/11/19 17:21: Influenza Type A (RT-PCR) NEGATIVE, Influenza Type B (RT-PCR) NEGATIVE 08/11/19 19:47: Blood Gas Bicarbonate Standard 23.2, Arterial Blood pH 7.418, Arterial Blood Partial Pressure CO2 35.7, Arterial Blood Partial Pressure O2 59.2L, Arterial Blood Total CO2 23.6, Arterial Blood HCO3 22.5, Arterial Blood Base Excess -1.4, Arterial Blood Oxygen Saturation 92.1L CBC/BMP Laboratory Tests 08/11/19 17:03 Home Medications Scheduled Cyclobenzaprine HCl (Amrix) 15 Mg Cap.er.24h, 30 MG PO QHS Duloxetine Hcl (Cymbalta) 60 Mg Cap, 60 MG PO DAILY Duloxetine Hcl (Duloxetine HCl) 30 Mg Capsule.dr, 30 MG PO QHS L.acidoph/L.bulg/B.bif/S.therm (Bacid Caplet) 1 Tab Tab, 1 TAB PO DAILY Levothyroxine Sodium (Synthroid) 25 Mcg Tab, 25 MCG PO DAILY Oxycodone HCl (Oxycontin) 15 Mg Tab.er.12h, 15 MG PO BID Ropinirole HCl (Ropinirole HCl) 1 Mg Tablet, 1.5 MG PO BID Salmeterol/Fluticasone (Advair 250-50 Diskus) 14 Puff/Inhaler Aerp, 1 PUFF INH DAILY Scheduled PRN Albuterol Sulfate (Ventolin Hfa) 108 Mcg/Act Aer, 2 PUFFS INH Q4H PRN for SHORTNESS OF BREATH Hydromorphone HCl (Hydromorphone HCl) 4 Mg Tab, 4 MG PO TID PRN for PAIN Hydroxyzine HCl (Hydroxyzine HCl) 50 Mg Tab, 50 MG PO QID PRN for ANXIETY Allergies Coded Allergies: Svmmmxf-Xru-Tes Reductase Inhibitor (Verified Allergy, Intermediate, INC LFT'S, MUSCULAR PAIN, 08/11/19) nickel (Verified Allergy, Intermediate, SWELLING, 08/11/19) levofloxacin (Verified Allergy, Unknown, SWELLING (FROM LEVAQUIN), 08/11/19) pregabalin (Verified Allergy, Unknown, RASH (FROM LYRICA), 08/11/19) NSAIDS (Non-Steroidal Anti-Inflamma (Verified Adverse Reaction, Intermediate, ABDOMINAL PAIN, HX GI ULCER, 08/11/19) cevimeline (Verified Adverse Reaction, Intermediate, UPSET STOMACH, 08/11/19) A-FIB/CHADSVASC A-FIB History Current/History of A-Fib/PAF?: No Current PO Anticoag Therapy: No FALGUNI MUNSON MD Aug 11, 2019 21:05
[2019-08-11] MEDS ORDERED: ALBUTEROL SULFATE 2.5 MG/0.5 ML INH NEB SOLN NEB PRN (21:15)
[2019-08-11] MEDS ORDERED: LEVALBUTEROL 1.25 MG/0.5 ML CONCENTRATE NEB INH PRN (21:15)
[2019-08-11] MEDS ORDERED: MOM 30ML SUSPENSION UDC PO PRN (21:15)
[2019-08-11] MEDS ORDERED: MAALOX 30 ML SUSP *UDC PO PRN (21:15)
[2019-08-11] MEDS ORDERED: LevoFLOXacin IV 750 MG in IV 1 EA IV SCH (21:15)
[2019-08-11] MEDS ORDERED: ACETAMINOPHEN TAB 650MG DOSE (2X325MG) PO PRN (21:15)
[2019-08-11] MEDS ORDERED: OXYC15TA66 PO (21:20)
[2019-08-11] MEDS ORDERED: ROPI1TAB PO (21:20)
[2019-08-11] MEDS ORDERED: AMRI15CA17 PO (21:20)
[2019-08-11] MEDS ORDERED: DULO1CAP5 PO (21:20)
[2019-08-11] MEDS ORDERED: METOPROLOL 5 MG/5 ML VIAL IV STA (22:15)
[2019-08-11] MEDS ORDERED: hydrOXYzine 50 MG TAB PO PRN (22:30)
[2019-08-11] MEDS ORDERED: PILL CUTTER 1 EACH XX PRN (22:30)
[2019-08-11] MEDS ORDERED: HYDROmorphone (DILAUDID) 4 MG TAB PO PRN (22:30)
[2019-08-11] MEDS: DOXYCYCLINE HYCLATE 100 MG TAB PO SCH (22:34)
[2019-08-11] MEDS: amLODIPine 5 MG TAB PO SCH (22:34)
[2019-08-12] MEDS: IPRATROPIUM 0.5MG/ALBUTEROL 2.5MG INH SOL UD 3ML (DUONEB)(J7620) NEB SCH ×4 (00:04→19:33)
[2019-08-12] MEDS ORDERED: DEXTROSE 50% 50 ML SYRINGE IV PRN (01:30)
[2019-08-12] MEDS ORDERED: GLUCOSE 4 GM CHEW TABLET PO PRN (01:30)
[2019-08-12] MEDS ORDERED: GLUCAGON FOR INJ 1 MG VIAL (J1610) SC PRN (01:30)
[2019-08-12] MEDS: BENZONATATE 100 MG CAP PO SCH ×4 (01:41→17:34)
[2019-08-12 02:01] LABS: HEMOGLOBIN A1c 6.4 %
[2019-08-12] MEDS: LEVOTHYROXINE 25MCG TABLET (0.025MG) PO SCH (05:55)
[2019-08-12 06:00] VITALS: BP 103/68
[2019-08-12 06:20] LABS: HEMATOCRIT 42.7 % (36.0-47.0); HEMOGLOBIN 14.4 g/dl (12.0-15.5); MEAN CORPUSCULAR HEMOGLOBIN 28.3 pg (27.0-33.0); MEAN CORPUSCULAR HGB CONC 33.7 g/dl (32.0-36.5); MEAN CORPUSCULAR VOLUME 83.9 fl (80.0-96.0); PLATELET COUNT, AUTOMATED 271 10^3/uL (150-450); RED BLOOD COUNT 5.09 10^6/uL (4.00-5.40); WHITE BLOOD COUNT 7.8 10^3/uL (4.0-10.0)
[2019-08-12 06:45] LABS: CALCIUM LEVEL 8.4 MG/DL (8.8-10.2); CREATININE FOR GFR 1.5 MG/DL (0.55-1.30); MAGNESIUM LEVEL 1.5 MG/DL (1.8-2.4); POTASSIUM SERUM 4.1 MEQ/L (3.5-5.1)
[2019-08-12] MEDS: oxyCODONE 15 MG CR TAB PO SCH ×2 (09:00→21:37)
[2019-08-12] MEDS: DOCUSATE SODIUM 100 MG CAP PO SCH ×2 (09:00→21:00)
[2019-08-12] MEDS ORDERED: PNEUMOCOCCAL VACCINE 0.5ML SYRINGE(90732) PNEUMOVAX 23 IM ONE (09:00)
[2019-08-12] MEDS ORDERED: FLUBLOK(EGG FREE)(QUAD)INFLUENZA VACC 0.5ML SYRINGE (90682)18YRS&OLDER IM ONE (09:00)
[2019-08-12] MEDS: predniSONE 20 MG TAB PO SCH (09:05)
[2019-08-12] MEDS: ENOXAPARIN 40 MG/0.4 ML SYRINGE (J1650) SC SCH (09:05)
[2019-08-12] MEDS: HumaLOG INSULIN (NovoLOG) PER UNIT SC SCH ×3 (09:05→17:34)
[2019-08-12] MEDS: PANTOPRAZOLE 40MG TAB (PROTONIX) PO SCH (09:05)
[2019-08-12] MEDS: DOXYCYCLINE HYCLATE 100 MG TAB PO SCH ×2 (09:06→21:35)
[2019-08-12] MEDS: DULoxetine 30 MG CAP (CYMBALTA) PO SCH ×2 (09:06→21:35)
[2019-08-12] MEDS: rOPINIRole 1MG TAB PO SCH ×2 (09:06→21:35)
[2019-08-12] MEDS: amLODIPine 5 MG TAB PO SCH (09:09)
--- NOTE | 2019-08-12 10:51 | IPNPDOC ---
Subjective Date Seen The patient was seen on 08/12/19. Subjective Chief Complaint/HPI Elevated blood pressure and shortness of breath Events since last encounter Mr. Miller reports that her breathing is much improved now that she is back on steroids. She got to consider going home today. I explained to her that she is unable to because of her recently elevated creatinine level and she became very upset. She stated, and her confirmed, that she was PROMISED that she could be discharged home this morning. She denies any other symptoms. General: Reports: Normal Appetite Pulmonary: Reports: Dyspnea (improved from yesterday), Cough, Pleuritic Chest Pain Cardiovascular: Denies: Chest Pain, Palpitations Gastrointestinal: Denies: Nausea, Vomiting Genitourinary: Denies: Dysuria Objective Physical Examination General Exam: Positive: Alert, No Acute Distress Eye Exam: Positive: Conjunctiva & lids normal; Negative: Sclera icteric ENT Exam: Positive: Mucous membr. moist/pink Neck Exam: Positive: Supple; Negative: Lymphadenopathy Chest Exam: Positive: Clear to auscultation, Diminished; Negative: Wheezing Heart Exam: Positive: Rate Normal, Normal S1, Normal S2; Negative: Murmurs Abdomen Exam: Positive: Normal bowel sounds, Soft; Negative: Tenderness Extremity Exam: Negative: Edema Psych Exam: Positive: Anxiety, Oriented x 3 Assessment /Plan Problems (1) Acute respiratory failure with hypoxia Status: Acute Discussed With: Patient, Family with Pt Consent Problem Specific Plan: Monitor Clinically Problem Text: She does not typically require supplemental oxygen. She is down to 1 L via nasal cannula in order to maintain her saturations in the low 90s. Continue to work to taper off oxygen today. (2) COPD exacerbation Status: Acute Response to Treatment: Improving Discussed With: Patient, Family with Pt Consent Problem Specific Plan: Monitor Clinically Problem Text: She reports her breathing is doing well and she could to which this in large part due to the steroids which she says usually help her. She received intravenous steroids yesterday but is on oral prednisone today. (3) Acute renal failure Status: Acute Discussed With: Nurse, Patient, Family with Pt Consent Problem Specific Plan: Repeat Labs Problem Text: Her creatinine jumped from 0.8 to 1.5. I'm not sure what the reason for this is. It could be related to medication side effects, but I tend to suspect is related to hydration status and fluid changes around her admission. Encouraged her to take by mouth fluids today and we will monitor her results. (4) Hypertension Status: Acute Response to Treatment: Controlled Discussed With: Patient, Family with Pt Consent Problem Specific Plan: Monitor Clinically Problem Text: Her blood pressure was reportedly 185/110 prior to admission; this scared her and was large part of why she came to the hospital. She was started on 5 mg of amlodipine on admission. Her blood pressures are currently well controlled. Continue current regimen, monitor. (5) Diabetes Status: Chronic Problem Specific Plan: Repeat Tests Problem Text: She is on no basal insulin at present. She is getting Accu-Cheks before meals and at bedtime with sliding scale insulin coverage. (6) Chronic pain Status: Chronic Problem Text: She is on her home doses of Dilaudid and OxyContin. We will need to watch her respiratory status carefully even though she is well accustomed to these medications Plan/VTE VTE Prophylaxis Ordered?: Yes (Lovenox) Disposition She should be able to go home soon. This may include tomorrow if: her renal function improves, her blood pressure stays stable, and her breathing does not get worse. She is aware that there is not a guarantee she will be discharged tomorrow. VS, I&O, 24H, Fishbone Vital Signs/I&O Vital Signs Date Time Temp Pulse Resp B/P (MAP) Pulse Ox O2 Delivery O2 Flow Rate FiO2 08/12/19 09:09 102 106/71 08/12/19 09:00 18 08/12/19 06:00 96.1 90 Room Air 1.0 I&O- Last 24 Hours up to 6 AM 08/12/19 06:00 Intake Total 450 ml Output Total 0 ml Balance 450 ml Laboratory Data 24H LABS Laboratory Tests 2 08/11/19 17:03: Immature Granulocyte % (Auto) 0.6, Neutrophils (%) (Auto) 66.6H, Lymphocytes (%) (Auto) 19.4L, Monocytes (%) (Auto) 12.4H, Eosinophils (%) (Auto) 0.6, Basophils (%) (Auto) 0.4, Neutrophils # (Auto) 5.6, Lymphocytes # (Auto) 1.6, Monocytes # (Auto) 1.1H, Eosinophils # (Auto) 0.1, Basophils # (Auto) 0.0, Nucleated Red Blood Cells % (auto) 0.0, Anion Gap 8, Glomerular Filtration Rate > 60.0, Estimated Mean Plasma Glucose 137H, Hemoglobin A1c 6.4, Calcium Level 9.1, Total Creatine Kinase 232H, Creatine Kinase MB 2.5, Creatine Kinase MB Relative Index 1.08, Troponin I < 0.02, RH-Qgt-T-Type Natriuretic Peptide 485H, Thyroid Stimulating Hormone (TSH) 1.100 08/11/19 17:21: Influenza Type A (RT-PCR) NEGATIVE, Influenza Type B (RT-PCR) NEGATIVE 08/11/19 19:47: Blood Gas Bicarbonate Standard 23.2, Arterial Blood pH 7.418, Arterial Blood Partial Pressure CO2 35.7, Arterial Blood Partial Pressure O2 59.2L, Arterial Blood Total CO2 23.6, Arterial Blood HCO3 22.5, Arterial Blood Base Excess -1.4, Arterial Blood Oxygen Saturation 92.1L 08/12/19 05:26: Nucleated Red Blood Cells % (auto) 0.0, Anion Gap 11, Glomerular Filtration Rate 37.0L, Calcium Level 8.4L, Magnesium Level 1.5L CBC/BMP Laboratory Tests 08/11/19 17:03 08/12/19 05:26 Pavel Davalos MD Aug 12, 2019 10:50 am
[2019-08-12 11:09] LABS: C REACTIVE PROTEIN QUANTITATIV 2.08 MG/DL (0.00-0.30)
[2019-08-12] MEDS: MAG SULF 1GM/100ML (MAG RUN) 1 GM in IV 1 EA IV SCH ×2 (11:43→12:52)
[2019-08-12 14:00] VITALS: BP 108/71
[2019-08-12] MEDS ORDERED: HumaLOG INSULIN (NovoLOG) PER UNIT SC SCH (21:00)
[2019-08-12 22:00] VITALS: BP 126/80
[2019-08-13] MEDS: IPRATROPIUM 0.5MG/ALBUTEROL 2.5MG INH SOL UD 3ML (DUONEB)(J7620) NEB SCH ×3 (01:11→12:53)
[2019-08-13] MEDS: guaiFENesin ER 600 MG TAB PO SCH ×2 (01:55→08:00)
[2019-08-13] MEDS: SODIUM CHLORIDE NASAL 0.65% SPRAY BTL (OCEAN) PRN ×2 (01:56→06:15)
[2019-08-13] MEDS: BENZONATATE 100 MG CAP PO SCH ×2 (01:56→10:29)
[2019-08-13 06:00] VITALS: BP 117/78
[2019-08-13] MEDS: LEVOTHYROXINE 25MCG TABLET (0.025MG) PO SCH (06:12)
[2019-08-13 06:39] LABS: BASO % 0.2 % (0.0-1.0); EOS # 0.1 10^3/uL (0.0-0.5); EOS % 0.5 % (0.0-3.0); HEMOGLOBIN 14.4 g/dl (12.0-15.5); LYMPH # 2.8 10^3/uL (1.5-5.0); LYMPH % 22.5 % (24.0-44.0); MEAN CORPUSCULAR HEMOGLOBIN 27.3 pg (27.0-33.0); MEAN CORPUSCULAR VOLUME 85.2 fl (80.0-96.0); MONO # 1.2 10^3/uL (0.0-0.8); MONO % 9.7 % (0.0-5.0); NEUTROPHILS # 8.4 10^3/uL (1.5-8.5); NEUTROPHILS % 66.4 % (36.0-66.0); PLATELET COUNT, AUTOMATED 289 10^3/uL (150-450); RED BLOOD COUNT 5.28 10^6/uL (4.00-5.40); WHITE BLOOD COUNT 12.7 10^3/uL (4.0-10.0)
[2019-08-13 06:58] LABS: ALBUMIN 3.2 GM/DL (3.2-5.2); BLOOD UREA NITROGEN 21 MG/DL (7-18); C REACTIVE PROTEIN QUANTITATIV 1.24 MG/DL (0.00-0.30); CALCIUM LEVEL 8.9 MG/DL (8.8-10.2); CARBON DIOXIDE LEVEL 30 MEQ/L (21-32); CHLORIDE LEVEL 99 MEQ/L (98-107); CREATININE FOR GFR 0.96 MG/DL (0.55-1.30); GLOMERULAR FILTRATION RATE > 60.0 (>45); GLUCOSE, FASTING 196 MG/DL (70-100); MAGNESIUM LEVEL 1.9 MG/DL (1.8-2.4); PHOSPHORUS LEVEL 2.6 MG/DL (2.5-4.9); POTASSIUM SERUM 3.6 MEQ/L (3.5-5.1); SODIUM LEVEL 136 MEQ/L (136-145)
[2019-08-13] MEDS: HumaLOG INSULIN (NovoLOG) PER UNIT SC SCH ×2 (07:59→12:26)
[2019-08-13] MEDS: predniSONE 20 MG TAB PO SCH (08:00)
[2019-08-13] MEDS: PANTOPRAZOLE 40MG TAB (PROTONIX) PO SCH (08:00)
[2019-08-13] MEDS: DOXYCYCLINE HYCLATE 100 MG TAB PO SCH (08:01)
[2019-08-13] MEDS: oxyCODONE 15 MG CR TAB PO SCH (08:01)
[2019-08-13] MEDS: DULoxetine 30 MG CAP (CYMBALTA) PO SCH (08:01)
[2019-08-13 08:02] VITALS: BP 120/76
[2019-08-13] MEDS: ENOXAPARIN 40 MG/0.4 ML SYRINGE (J1650) SC SCH (08:02)
[2019-08-13] MEDS: rOPINIRole 1MG TAB PO SCH (08:02)
[2019-08-13] MEDS: amLODIPine 5 MG TAB PO SCH (08:02)
[2019-08-13] MEDS: DOCUSATE SODIUM 100 MG CAP PO SCH (09:00)
[2019-08-13] MEDS ORDERED: PRED10TA2 PO (11:48)
[2019-08-13] MEDS ORDERED: DOXY100T PO (11:48)
[2019-08-13] MEDS ORDERED: BENZ-18 PO (11:48)
[2019-08-13] MEDS ORDERED: AMLO5TAB6 PO (11:48)
--- NOTE | 2019-08-13 13:46 | DSES ---
DATE OF ADMISSION: 08/11/2019 DATE OF DISCHARGE: PRINCIPLE DIAGNOSIS: Exacerbation of chronic obstructive pulmonary disease (COPD) secondary to bronchitis. SECONDARY DIAGNOSES: Acute renal failure secondary to dehydration - resolved. Hypertension. Type 2 diabetes. Chronic pain syndrome. HISTORY: Bessy Miller is a 68-year-old patient of CLARA Vivar who was admitted with exacerbation of COPD. Details are in the history and physical on admission. HOSPITAL COURSE: Patient was admitted to a medical bed. Treated with intravenous steroid nebulized bronchodilator, supplemental oxygen. She was on IV doxycycline. Clinically, she responded quickly, placed on oral steroid. Did well and on the day of discharge, her oxygenation is 91% on room air. He feels ready to go home. On exam, she is resting comfortably, visiting with her . She is walking without difficulty. She has a few wheezes at the bases. Heart regular rhythm. Abdomen soft, nontender. Trace peripheral edema. SIGNIFICANT LABS: Blood sugars are in the 200s today. Yesterday creatinine was 1.5. After pushing oral fluids, it was down to 0.96, which is her baseline. White count is 12.7 on steroids, hemoglobin 14.4. Influenza screen was negative. Chest x-ray showed no active disease. Angiographic CT of the chest showed no infiltrate. DISPOSITION: She is discharged home in improved and stable condition. She will followup with her primary car provider in a week. Activity as tolerated. No added salt diet recommended. MEDICATIONS ON DISCHARGE: - albuterol inhaler, inhaled solution four times a day as needed - Cymbalta 60 mg in the mornings and 30 mg in the evening. - Dilaudid 4 mg three times a day as needed - hydroxyzine 50 mg four times a day as needed - levothyroxine 25 mcg daily - OxyContin 15 mg twice a day - Requip 1.5 mg twice a day - Advair 250/50 one inhalation twice a day - cyclobenzaprine ER 15 mg capsules, two capsules (30 mg) nightly (she gets all of these from the pain clinic). New medications: - Tessalon Perles 200 mg every 8 hours as needed - amlodipine 5 mg daily, which is a new medication for her blood pressure. - doxycycline 100 mg twice a day for 7 days - prednisone 10 mg tablets, two tablets twice a day for 5 days, one tablet twice a day for 5 days (never ordered it that way before but the [facility] system will not let me order 20 mg tablets). She assures me she has a nebulizer solution at home. Her necessary prescriptions for new medications were sent to her pharmacy on discharge.
[2019-08-13] MEDS ORDERED: FLUBLOK(EGG FREE)(QUAD)INFLUENZA VACC 0.5ML SYRINGE (90682)18YRS&OLDER IM ONE (14:00)
[2019-08-13] MEDS ORDERED: PNEUMOCOCCAL VACCINE 0.5ML SYRINGE(90732) PNEUMOVAX 23 IM ONE (14:00)
== END 2019-08-13 14:14 | disposition home or self-care (01) | DRG 191 ==
LOC: M ED 16:31 → EDBD 16:31 → M ED INP 21:04 → ENRESERV 22:55 → M MSPAV 23:16
PROVIDERS: ADMIT Internal Medicine; ATTEND Family Medicine
DX: J44.1 Chronic obstructive pulmonary disease with (acute) exacerbation (principal); N17.9 Acute kidney failure, unspecified; E86.0 Dehydration; E11.9 Type 2 diabetes mellitus without complications; I10 Essential (primary) hypertension; G89.29 Other chronic pain; Z79.899 Other long term (current) drug therapy; E03.9 Hypothyroidism, unspecified; K44.9 Diaphragmatic hernia without obstruction or gangrene; E66.9 Obesity, unspecified; G43.909 Migraine, unspecified, not intractable, without status migrainosus; M35.00 Sjogren syndrome, unspecified; Z96.652 Presence of left artificial knee joint; Z87.891 Personal history of nicotine dependence; Z88.6 Allergy status to analgesic agent; Z88.8 Allergy status to other drugs, medicaments and biological substances

== ENCOUNTER → 2019-08-23 | Outpatient (CLI) | payer OTHER, BC, MEDICARE ==
[~2019-08-23] MED LIST changes: +AMLO5TAB6 PO; +DOXY100T PO; +DULO1CAP5; +DULO1CAP5 PO; +ROPI1TAB; +ROPI1TAB PO
--- NOTE | 2019-09-06 03:35 | ECWPNPC ---
PATIENT NAME: SARAVANAN DAUGHERTY : 1950 GENDER: FEMALE VISIT DATE: 08/23/2019 DISCHARGE DATE: 08/23/19 1158 VISIT LOCKED DATE TIME: PHYSICIAN: JULIANA COOLEY RESOURCE: JULIANA COOLEY REASON FOR APPOINTMENT 1. W/C KNEE HISTORY OF PRESENT ILLNESS HISTORY OF PRESENT ILLNESS: HERE FOR ROUTINE F/U AND MANAGEMENT OF PERSISTENT LEFT KNEE PAIN. RATING PAIN VAS 4-9/10.REPORTS EPISODIC SHOOTING PAIN LEFT KNEE RADIATING UP LEFT THIGH.THIS IS CHRONIC PAIN RELATED TO WORK INJURY 04-29-05.CURRENTLY USING OXYCONTIN 15MG QD,HYDROMORPHONE 2MG Q12H PRN MDD2,CYMBALTA 60MG QD AND AMRIX 15MG 2 TAB DAILY.FEELS CURRENT PAIN MEDICATION REGIMEN IS EFFECTIVE AT REDUCING PAIN AND KEEPING HER COMFORTABLE.DENIES SIDE EFFECTS.PATIENT NOT DEMONSTRATING ABBERANT BEHAVIOR. PAIN THE PATIENT DESCRIBES THE PAIN... FALL RISK SCREENING: SCREENING :NO FALLS REPORTED IN THE LAST YEAR CURRENT MEDICATIONS TAKING VENTOLIN HFA 108 (90 BASE) MCG/ACT AEROSOL SOLUTION 2 PUFFS NEEDED INHALATION EVERY 4 HOURS NEEDED, NOTES: FREQUENCY CHANGE TAKING IPRATROPIUM-ALBUTEROL 0.5-2.5 (3) MG/3ML SOLUTION 3 ML INHALATION BID PRN, NOTES: BID PRN TAKING ADVAIR DISKUS 250-50 MCG/DOSE AEROSOL POWDER BREATH ACTIVATED 1 PUFF INHALATION DAILY TAKING PREDNISONE 5 MG TABLET DELAYED RELEASE 2 TABLETS X 5D, THEN 1 TABLET 5DAYS ORALLY ONCE A DAY, NOTES: 2 WEEKS LEFT TAKING AMLODIPINE BESYLATE 5 MG TABLET 1 TABLET ORALLY BID TAKING ZOFRAN 4 MG TABLET 1 TABLET ORALLY ONCE A DAY TAKING PREDNISONE 5 MG TABLET 2 TABLETS X5D, 1 TABLET X5DAYS ORALLY ONCE A DAY TAKING PROBIOTIC - CAPSULE 1 CAP ORALLY DAILY TAKING LEVOTHYROXINE SODIUM 25 MCG CAPSULE 1 CAPSULE ON AN EMPTY STOMACH IN THE MORNING ORALLY ONCE A DAY TAKING CYMBALTA 60 MG CAPSULE DELAYED RELEASE PARTICLES 1 CAP ORALLY ONCE DAILY TAKING AMRIX 15 MG CAPSULE EXTENDED RELEASE 24 HOUR 2 CAPSULE ORALLY ONCE DAILY TAKING CYMBALTA 30 MG CAPSULE DELAYED RELEASE PARTICLES 1 CAP ORALLY BEFORE BEDTIME TAKING HYDROMORPHONE HCL 2 MG TABLET 4 MG ORALLY TID PRN, NOTES: DOSAGE CHANGE TAKING ROPINIROLE HCL 1 MG TABLET 1 TABLET 1.5 BID ORALLY BID TAKING HYDROXYZINE HCL 50 MG TABLET 1 TABLET NEEDED ORALLY QID TAKING BENZONATATE 100 MG CAPSULE 1 CAP ORALLY Q 8 HOURS X 10 DAYS TAKING PREDNISONE 10 MG TABLET DIRECTED ORALLY 2 TABS BID X5 DAYS, 1 TAB BID X5 DAYS TAKING ARNICA - TINCTURE DIRECTED TOPICALLY GEL OTC BID FOR KNEE PAIN TAKING ONETOUCH VERIO - STRIP 1 STRIP IN VITRO DAILY TAKING ONETOUCH VERIO - STRIP 1 LANCET IN VITRO DAILY TAKING METFORMIN HCL 1000 MG TABLET 1 TABLET WITH MEALS ORALLY TWICE A DAY TAKING RANITIDINE HCL 150 MG CAPSULE 1 CAPSULE ORALLY TWICE A DAY TAKING NYSTATIN [id number] UNIT/GM POWDER 1 APPLICATION TO AFFECTED AREA EXTERNALLY TWICE A DAY, NOTES: PRN TAKING BENADRYL ALLERGY 25 MG TABLET 1 TABLET NEEDED ORALLY EVERY 8 HRS TAKING OXYCODONE HCL ER 15 MG TABLET ER 12 HOUR ABUSE-DETERRENT 1 TABLET ORALLY BID, NOTES: FREQUENCY CHANGE NOT-TAKING DOXYCYCLINE HYCLATE 100 MG TABLET DELAYED RELEASE 1 TABLET ORALLY BID X 7 DAYS NOT-TAKING AMLODIPINE BESYLATE 5 MG TABLET 1 TABLET ORALLY ONCE A DAY MEDICATION LIST REVIEWED AND RECONCILED WITH THE PATIENT PAST MEDICAL HISTORY 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 JALLOH T2DM HYPOTHYROIDISM 10 CM RETROCARDIAC HIATAL HERNIA SJOGREN SYNDROME RESTLESS LEGS ARNEL MIGRAINES ACUTE KIDNEY FAILUTRE(DEHYDRATION) CHF ACUTE BRONCHITIS MORBID OBESITY HIATAL HERNIA ACUTE RESPIRATORY FAILURE WITH HYPOXEMIA HYPERTENSION ALLERGIES NICKEL: SWELLING - ALLERGY STATINS (FOR ALLERGY USE ONLY): INCREASED LFTS, MUSCULAR PAIN - ALLERGY NSAIDS: ABDOMINAL PAIN, GI ULCER - ALLERGY LEVAQUIN: FACIAL SWELLING - ALLERGY LYRICA: ITCHING - ALLERGY LACTOSE: DIARRHEA, ABDOMINAL PAIN - ALLERGY LATEX (FOR ALLERGY USE ONLY): RASH - ALLERGY SURGICAL HISTORY TONSILLECTOMY GANGLION CYST WITH CARPAL RELEASE, LEFT WRIST SECTION X2 APPENDECTOMY LEFT ARTHROSCOPY LEFT KNEE REPLACEMENT X2 2008, 2013 CATARACTS FAMILY HISTORY FATHER: , [place], DIABETES, DIAGNOSED WITH DIABETES, HYPERTENSION, UNSPECIFIED HEART DISEASE MOTHER: , CANCER, OTHER MALIGNANT NEOPLASM OF UNSPECIFIED SITE SIBLINGS: ALIVE, HEART DISEASE, CANCER SON(S): ALIVE DAUGHTER(S): ALIVE, LUPUS 2 BROTHER(S) - HEALTHY. 1 SON(S) , 1 DAUGHTER(S) - HEALTHY. MOM-ORAL CA\\\\N. SOCIAL HISTORY GENERAL: TOBACCO USE ARE YOU A:FORMER SMOKER HOW LONG HAS IT BEEN SINCE YOU LAST SMOKED?5-10 YEARS HIV / HEP-C SCREENING HIV TEST OFFERED TO PATIENT:YES DATE OFFERED:03/26/2017 TEST ACCEPTED:NO HEP-C TEST OFFERED TO PATIENT:YES DATE OFFERED:03/26/2017 REASON:PATIENT DECLINED ALREADY TESTED TEST ACCEPTED:NO REASON:PATIENT DECLINED OTHERS AT HOME: SPOUSE, SPOUSE. DIET: REGULAR, REGULAR. LANGUAGE LANGUAGES SPOKEN:MAORI DOMESTIC VIOLENCE DO YOU FEEL SAFE IN YOUR ENVIRONMENT?YES NEW PATIENT PAIN DIARY TODAY'S VISITNOTES FROM 0-10, WHAT LEVEL IS YOUR PAIN TODAY?5 BMI CARE GOAL FOLLOW-UP ABOVE NORMAL BMI FOLLOW-UPLIFESTYLE EDUCATION REGARDING DIET RECREATIONAL DRUG USE DRUG USE?NO EXERCISE: NO REGULAR EXERCISE, NO REGULAR EXERCISE. LEARNING BARRIERS / SPECIAL NEEDS CHANGE FROM LAST VISIT?NO BARRIERS TO LEARNING?NO HEARING IMPAIRED?NO VISION IMPAIRED?YES COGNITIVELY IMPAIRED?NO :CORRECTIVE LENSES READINESS TO LEARN?YES LEARNING PREFERENCES?NO LEARNING CAPABILITIES PRESENT?YES EMOTIONAL BARRIERS?NO SPECIAL DEVICES?NO CORPORATE GENERAL MANAGER NEEDED?NO PAIN CLINIC PFS, CLERGY, PUBLIC HEALTH REFERRALS PFS REFERRAL NEEDED?NO CLERGY REFERRAL NEEDED?NO PUBLIC HEALTH REFERRAL NEEDED?NO WAS THE PROVIDER NOTIFIED OF ANY PERTINENT INFO?YES N/A HAS THE PATIENT BEEN EDUCATED REGARDING HIS/HER PLAN OF CARE?YES HAS THE PATIENT BEEN EDUCATED REGARDING PAIN, THE RISK FOR PAIN, THE IMPORTANCE OF EFFECTIVE PAIN MANAGEMENT, AND THE PAIN ASSESSMENT PROCESS?YES LATEX QUESTIONNAIRE LATEX ALLERGY : HAVE YOU EVER DEVELOPED ANY TYPE OF REACTION AFTER HANDLING LATEX PRODUCTS SUCH RUBBER GLOVES, CONDOMS, DIAPHRAGMS, BALLOONS, SOCKS, OR UNDERWEAR?YES SEE ALLERGIES, RASH, BURNING LATEX ALLERGY : HAVE YOU EVER DEVELOPED ANY TYPE OF REACTION DURING OR AFTER DENTAL APPOINTMENT, VAGINAL/RECTAL EXAMINATION, SURGICAL PROCEDURE, OR ANY OTHER EXPOSURE?NO LATEX RISK : HAVE YOU EVER HAD ANY DIFFICULTY BREATHING OR HIVES AFTER EATING OR HANDLING ANY FRUITS, OR VEGETABLES; SUCH KIWI, BANANAS, STONE FRUITS, OR CHESTNUTSNO LATEX RISK : DO YOU HAVE A PREVIOUS PERSONAL HISTORY OF MORE THAN NINE SURGERIES, SPINA BIFIDA, OR REPEATED CATHERIZATIONS? NO LATEX RISK : ARE YOU FREQUENTLY EXPOSED TO LATEX PRODUCTS IN YOUR OCCUPATION?NO DATE ASKED : 08/23/2019 CAFFEINE CAFFEINE USE?YES ADVANCE DIRECTIVE ADVANCE DIRECTIVE DISCUSSED WITH PATIENT:YES HEALTH CARE PROXY ROMEO WHITE SIKHISM [id number] NONE MARITAL STATUS: , . ALCOHOL SCREENING DID YOU HAVE A DRINK CONTAINING ALCOHOL IN THE PAST YEAR?NO POINTS0 INTERPRETATIONNEGATIVE OCCUPATION: UNEMPLOYED, UNEMPLOYED. SEXUAL HX HAD SEX IN THE LAST 12 MONTHS (VAGINAL, ORAL, OR ANAL)?YES WITHMEN ONLY 07/22/18 1221 REVIEWED WITH PT. ADREVIEWED WITH PATIENT 12/08/18 1049 BVREVIEWED WITH PT 02/21/19 1039 BVREVIEWED WITH PATIENT 05/31/2019 LASREVIEWED WITH PATIENT 2019-08-23 DS. HOSPITALIZATION/MAJOR DIAGNOSTIC PROCEDURE SURGERIES COPD 08/13/2016 PNEUMONIA/RESP FAILURE 2016 COPD, ACUTE KIDNEY FAILURE(DEHYDRATION) 08/2019 REVIEW OF SYSTEMS REVIEWED BY: PROVIDER: JULIANA JIANG . CONSTITUTIONAL: ANY CHANGE IN YOUR MEDICAL CONDITION? YES, RECENTLY DISCHARGED FROM [facility] FOR CARDIAC EVENT WITH HYPOXIA . CHILLS NO . FEVER NO . INFECTION: DO YOU HAVE NEW INFECTIONS? YES . DO YOU HAVE HISTORY OF MRSA? NO . MUSCULOSKELETAL: ANY NEW PATTERNS OF PAIN OR NUMBNESS? NO . GASTROENTEROLOGY: ANY NEW CHANGE IN BOWEL CONTROL? NO . GENITOURINARY: ANY NEW CHANGE IN BLADDER CONTROL? NO . IS THERE A CHANCE YOU COULD BE ? NO . HEMATOLOGY/LYMPH: DO YOU TAKE ANY BLOOD THINNERS? (FOR EXAMPLE- COUMADIN, PLAVIX, AGGRENOX, PLATEL, PRADAXA, OR XARELTO) NO . WHEN WAS YOUR LAST DOSE? DATE: TIME: . NEUROLOGY: HAVE YOU FALLEN IN THE PAST 12 MONTHS? NO . ANY NEW EXTREMITY NUMBNESS OR WEAKNESS? NO . CARDIOLOGY: DO YOU HAVE A PACEMAKER OR DEFIBRILLATOR? NO . RESPIRATORY: HAVE YOU BEEN SICK IN THE PAST WEEK? YES, PT ADMITTED TO [facility] FOR CARDIAC MONITORING WITH HYPOXIA, NOT CURRENTLY USING SUPPLEMENTAL O2, PT STATES THAT SHE IS FEELING BETTER SINCE D/C . FEVER NO . FLU LIKE SYMPTOMS? NO . COUGH NO . INTEGUMENTARY: DO YOU HAVE ANY RASHES OR OPEN SORES? NO . ALLERGIC/IMMUNO: ARE YOU ALLERGIC TO IV DYE? NO . ANY NEW ALLERGIES? NO . PSYCHIATRIC: DO YOU HAVE THOUGHTS OF HURTING YOURSELF OR SOMEONE ELSE? NO . ARE YOU ABUSED, NEGLECTED, OR IN AN UNSAFE ENVIRONMENT? NO . ENDOCRINOLOGY: ARE YOU DIABETIC? YES, USING ORAL MEDS TO REGULATE BLOOD SUGAR . OTHER: DO YOU NEED ANY PRESCRIPTIONS? HYDROMOPHONE, OXYCONTIN, AMITREX . IF YES, PLEASE LIST: ____ . ANY NEW PROBLEMS WITH YOUR MEDICATIONS? NO . WHEN DID YOU LAST EAT? ____ . WHEN DID YOU LAST DRINK? ____ . WHAT DID YOU LAST DRINK? ____ . NAME OF PERSON DRIVING YOU HOME? ____ . DO YOU HAVE ANY OTHER QUESTIONS OR CONCERNS FLU, PNEUMOVAX ON August, PT STATES THAT SHE WAS ADMITTED TO PCU FROM AUG 11-Aug FOR HYPOXIA. PT STATES THAT SHE IS FEELING BETTER AND BREATHING ISSUES HAVE IMPROVED, PT STATES THAT SHE UNDERSTANDS THAT SHE NEEDS TO BE CAUTIOUS WITH AMBULATION AND BREATHING. DS . VITAL SIGNS WT 229.4 LBS, HT 62", BMI 41.95 INDEX, BP 160/86 MM HG, HR 87 /MIN, RR 20 /MIN, TEMP 97.6 F, OXYGEN SAT % 90, NA INITIALS Y, BP SITTING DS. EXAMINATION GENERAL EXAMINATION: LUNGS:LUNG SOUNDS ARE CLEAR. HEART:HEART RATE REGULAR. MUSCULOSKELETAL:*. ASSESSMENTS LEFT KNEE PAIN - M25.562 (PRIMARY) TREATMENT LEFT KNEE PAIN REFILL AMRIX CAPSULE EXTENDED RELEASE 24 HOUR, 15 MG, 2 CAPSULE, ORALLY, ONCE DAILY, 30 DAYS, 60, REFILLS 5 REFILL HYDROMORPHONE HCL TABLET, 2 MG, 4 MG, ORALLY, TID PRN, 30 DAYS, 90, REFILLS 0, NOTES: DOSAGE CHANGE REFILL OXYCODONE HCL ER TABLET ER 12 HOUR ABUSE-DETERRENT, 15 MG, 1 TABLET, ORALLY, DAILY MDD1, 30 DAYS, 30, REFILLS 0, NOTES: FREQUENCY CHANGE NOTES: ISTOP REGISTRY REVIEWED AND DEMONSTRATES COMPLLIANCE. BRINGS IN MEDICATIONS WHICH IS APPROPRIATE FOR WHAT WAS DISPENSED. RECENT URINE TOXICOLOGY REVIEWED. NO UNAUTHORIZED MEDICATIONS. NO ILLICIT SUBSTANCES AND PRESCRIBED MEDICATIONS WERE PRESENT. URINE TOX TODAY, RISKS OF NARCOTIC/OPIOD MEDICATIONS INCLUDES BUT IS NOT LIMITED TO RISK OF DEPENDANCE/DEVELOPMENT OF ADDICTION, MOOD DISTURBANCE AND DEPRESSION, OSTEOPOROSIS, HORMONAL AND LABIDAL CHANGES, RESPIRATORY DEPRESSION AND . PATIENT IS ADVISED NOT TO DRIVE OR DRINK ALCOHOL WHILE ON THESE MEDICATIONS. PROCEDURES PN WORKMANS' COMP OPINION IN YOUR OPINION, WAS THE INCIDENT THAT THE PATIENT DESCRIBED THE COMPETENT MEDICAL CAUSE OF THIS INJURY/ILLNESS? YES ARE THE PATIENT'S COMPLAINTS CONSISTENT WITH HIS/HER HISTORY OF THE INJURY/ILLNESS? YES IS THE PATIENT'S HISTORY OF THE INJURY/ILLNESS CONSISTENT WITH YOUR OBJECTIVE FINDING? YES WHAT IS THE PERCENTAGE OF TEMPORARY IMPAIRMENT? MODERATE TO MARKED = 66.7% IS THE PATIENT WORKING? NO DOCTOR ON SITE: HAYDEN JENSEN MD PREVENTIVE MEDICINE PAIN CLINIC TEACHING: THE PATIENT HAS BEEN EDUCATED REGARDING PAIN, THE RISK FOR PAIN, THE IMPORTANCE OF EFFECTIVE PAIN MANAGEMENT, AND THE PAIN ASSESSMENT PROCESS. : REVIEWED AND DISCUSSED TREATMENT PLAN WITH PATIENT, PT ACKNOWLEDGED UNDERSTANDING. DS PROCEDURE CODES FA211 ESTABILISHED PATIENT [facility] CHARGE DISPOSITION & COMMUNICATION FOLLOW UP 3 MONTHS (REASON: W/C MED MGMNT) ELECTRONICALLY SIGNED BY DEIDRE MERCEDES ON 09/05/2019 AT 01:30 PM EST DISCLAIMER : THIS IS A VISIT SUMMARY EXTRACTED FROM THE [employer] CHART. IT IS NOT A COPY OF THE [employer] PROGRESS NOTE. ELOISA
== END ==
LOC: M PAIN 10:45
PROVIDERS: ATTEND Nurse Practitioner Family
DX: M25.562 Pain in left knee (principal)

== ENCOUNTER 2019-10-28 17:06 | Emergency (ER) | payer BC, MEDICARE ==
[~2019-10-28] VITALS: Ht 160 cm; Wt 99.8 kg
[~2019-10-28 17:06] MED LIST changes: -ROPI1TAB; -ROPI1TAB PO; +ROPI1TAB3; +ROPI1TAB3 PO
[2019-10-28] MEDS ORDERED: COMBIVENT RESPIMAT 100-20MCG INHALER 4GM INH ONE (17:30)
--- NOTE | 2019-10-28 17:43 | REP ---
Clinical: Cough and dyspnea. Comparison: 08/11/2019. Findings: Stable cardiomegaly and chronic interstitial changes including left basilar fibro atelectatic change. Moderate hiatal hernia again noted. No focal consolidation. No effusion. No pneumothorax. Skeletal structures intact. Impression: Stable chronic changes. No focal consolidation or effusion. Electronically Signed by Juan Carlos Mcfarland MD 10/28/2019 05:34 P
[2019-10-28 17:45] LABS: BASO # 0.1 10^3/uL (0.0-0.2); BASO % 0.5 % (0.0-1.0); EOS # 0.2 10^3/uL (0.0-0.5); EOS % 2.3 % (0.0-3.0); HEMATOCRIT 45.5 % (36.0-47.0); HEMOGLOBIN 15.1 g/dl (12.0-15.5); LYMPH % 28.4 % (24.0-44.0); MEAN CORPUSCULAR HEMOGLOBIN 27.8 pg (27.0-33.0); MEAN CORPUSCULAR HGB CONC 33.2 g/dl (32.0-36.5); MEAN CORPUSCULAR VOLUME 83.8 fl (80.0-96.0); MONO # 0.7 10^3/uL (0.0-0.8); MONO % 6.6 % (0.0-5.0); NEUTROPHILS # 6.4 10^3/uL (1.5-8.5); NEUTROPHILS % 61.5 % (36.0-66.0); PLATELET COUNT, AUTOMATED 334 10^3/uL (150-450); RED BLOOD COUNT 5.43 10^6/uL (4.00-5.40); WHITE BLOOD COUNT 10.5 10^3/uL (4.0-10.0)
[2019-10-28 18:07] LABS: ALT/SGPT 23 U/L (12-78); BILIRUBIN,DIRECT < 0.1 MG/DL (0.0-0.2); BILIRUBIN,TOTAL 0.2 MG/DL (0.2-1.0); BLOOD UREA NITROGEN 14 MG/DL (7-18); CALCIUM LEVEL 8.6 MG/DL (8.8-10.2); CARBON DIOXIDE LEVEL 32 MEQ/L (21-32); CHLORIDE LEVEL 103 MEQ/L (98-107); CREATININE FOR GFR 0.92 MG/DL (0.55-1.30); GLOMERULAR FILTRATION RATE > 60.0 (>45); GLUCOSE, FASTING 187 MG/DL (70-100); POTASSIUM SERUM 4.5 MEQ/L (3.5-5.1); SODIUM LEVEL 138 MEQ/L (136-145); TOTAL PROTEIN 7.1 GM/DL (6.4-8.2)
[2019-10-28] MEDS: COMBIVENT RESPIMAT 100-20MCG INHALER 4GM INH PRN ×2 (18:07→18:44)
[2019-10-28 18:13] LABS: VENOUS BASE EXCESS 2.6 (-2.0-2.0); VENOUS HCO3 29.1 MEQ/L (23.0-27.0); VENOUS O2 SATURATION 87.6 % (60.0-80.0); VENOUS PARTIAL PRESSURE O2 54.2 mmHg (30.0-50.0); VENOUS PH 7.366 UNITS (7.330-7.430); VENOUS STANDARD HCO3 26.5 MEQ/L; VENOUS TOTAL CO2 30.7 MEQ/L (24.0-28.0)
[2019-10-28] MEDS ORDERED: methylPREDNISolone INJ 125 MG/2 ML VIAL (J2930) IV ONE (18:15)
[2019-10-28 18:33] LABS: CK-MB VALUE MASS < 1.0 NG/ML (<3.6); CPK CREATINE PHOSPHOKINASE 59 U/L (26-192); MB/CK RELATIVE INDEX 1.69 (< OR =4); TROPONIN I < 0.02 NG/ML (< 0.10)
--- NOTE | 2019-10-28 18:47 | ECGEPIP ---
[facility] - ED Test Date: 2019-10-28 Pat Name: SARAVANAN DAUGHERTY Department: Room: - Gender: Female Capacity Planner: ct : 1950 Requested By: VELVET Peraza Order Number: [id number] Reading MD: Brea Ayala Measurements Intervals Jet Rate: 80 P: 51 IA: 158 QRS: 11 QRSD: 93 T: 20 QT: 390 QTc: 451 Interpretive Statements SINUS RHYTHM DECREASED RATE 05/25/17 Electronically Signed on 10-28-2019 18:46:40 EDT by Brea Ayala
--- NOTE | 2019-10-28 19:21 | HPEPDOC ---
[facility] Medical History & Physical History and Physical CHIEF COMPLAINT: HISTORY OF PRESENT ILLNESS: PAST MEDICAL HISTORY: 1. . 2. . 3. . PAST SURGICAL HISTORY: 1. . 2. . 3. . SOCIAL HISTORY: Marital status: . Resides in: Children: Employment: Tobacco use: ETOH: Illicit drug use: Tattoos done unprofessionally: . IV drug use: Other relevant social factors: FAMILY HISTORY: Father: Mother: Siblings: Children: Hereditary Diseases: Unexpected deaths due to medical reasons: ALLERGIES: Please see below. REVIEW OF SYSTEMS: CONSTITUTIONAL: . HEENT: . CARDIOVASCULAR: . RESPIRATORY: . GASTROINTESTINAL: . GENITOURINARY: . SKIN: . MUSCULOSKELETAL: . NEUROLOGICAL: . PSYCHIATRIC: . ENDOCRINE: . HEMATOLOGIC/LYMPHATIC: . HOME MEDICATIONS: Please see below. PHYSICAL EXAMINATION: VITAL SIGNS: Temperature , pulse , respiratory rate , blood pressure , pulse oximetry % on room air. GENERAL APPEARANCE: . HEENT: . CARDIOVASCULAR: . LUNGS: . ABDOMEN: . MUSCULOSKELETAL: . EXTREMITIES: . NEUROLOGICAL: . PSYCHIATRIC: . LABORATORY DATA: See below. IMAGING: MICROBIOLOGY: Please see below. ASSESSMENT: . . PLAN: 1. . Vital Signs Vital Signs Date Time Temp Pulse Resp B/P (MAP) Pulse Ox O2 Delivery O2 Flow Rate FiO2 10/28/19 18:30 78 20 156/79 (104) 93 Nasal Cannula 2.0 10/28/19 17:06 97.7 Laboratory Data Labs 24H Laboratory Tests 2 10/28/19 17:29: Immature Granulocyte % (Auto) 0.7, Neutrophils (%) (Auto) 61.5, Lymphocytes (%) (Auto) 28.4, Monocytes (%) (Auto) 6.6H, Eosinophils (%) (Auto) 2.3, Basophils (%) (Auto) 0.5, Neutrophils # (Auto) 6.4, Lymphocytes # (Auto) 3.0, Monocytes # (Auto) 0.7, Eosinophils # (Auto) 0.2, Basophils # (Auto) 0.1, Nucleated Red Blood Cells % (auto) 0.0, Anion Gap 3L, Glomerular Filtration Rate > 60.0, Calcium Level 8.6L, Total Bilirubin 0.2, Direct Bilirubin < 0.1, Aspartate Amino Transf (AST/SGOT) 14, Alanine Aminotransferase (ALT/SGPT) 23, Alkaline Phosphatase 142H, Total Creatine Kinase 59, Creatine Kinase MB < 1.0, Creatine Kinase MB Relative Index 1.69, Troponin I < 0.02, Total Protein 7.1, Albumin 3.0L, Albumin/Globulin Ratio 0.73L 10/28/19 18:08: Blood Gas Bicarbonate Standard 26.5, Venous Blood pH 7.366, Venous Blood Partial Pressure CO2 52.0H, Venous Blood Partial Pressure O2 54.2H, Venous Blood Total Carbon Dioxide 30.7H, Venous Blood HCO3 29.1H, Venous Blood Oxygen Saturation 87.6H, Venous Blood Base Excess 2.6H CBC/BMP Laboratory Tests 10/28/19 17:29 Microbiology Microbiology 10/28/19 Respiratory Virus Panel (PCR) (ARACELI), Received Pending 10/28/19 Blood Culture, Received Pending Home Medications Scheduled Amlodipine Besylate (Amlodipine Besylate) 5 Mg Tablet, 5 MG PO DAILY Benzonatate (Benzonatate) 100 Mg Capsule, 100 MG PO Q8H Cyclobenzaprine HCl (Amrix) 15 Mg Cap.er.24h, 30 MG PO QHS Doxycycline Hyclate (Doxycycline Hyclate) 100 Mg Tablet, 100 MG PO BID Duloxetine Hcl (Cymbalta) 60 Mg Cap, 60 MG PO DAILY Duloxetine Hcl (Duloxetine HCl) 30 Mg Capsule.dr, 30 MG PO QHS L.acidoph/L.bulg/B.bif/S.therm (Bacid Caplet) 1 Tab Tab, 1 TAB PO DAILY Levothyroxine Sodium (Synthroid) 25 Mcg Tab, 25 MCG PO DAILY Oxycodone HCl (Oxycontin) 15 Mg Tab.er.12h, 15 MG PO BID Prednisone (Prednisone) 10 Mg Tablet, 10 MG PO BID 2 tabs BID x 5 days, 1 tab BID x 5 days Prednisone (Prednisone) 20 Mg Tablet, 60 MG PO DAILY Ropinirole HCl (Ropinirole HCl) 1 Mg Tablet, 1.5 MG PO BID Salmeterol/Fluticasone (Advair 250-50 Diskus) 14 Puff/Inhaler Aerp, 1 PUFF INH DAILY Scheduled PRN Albuterol Sulfate (Ventolin Hfa) 108 Mcg/Act Aer, 2 PUFFS INH Q4H PRN for SHORTNESS OF BREATH Hydromorphone HCl (Hydromorphone HCl) 4 Mg Tab, 4 MG PO TID PRN for PAIN Hydroxyzine HCl (Hydroxyzine HCl) 50 Mg Tab, 50 MG PO QID PRN for ANXIETY Allergies Coded Allergies: [id number]-Keq-Lnj Reductase Inhibitor (Verified Allergy, Intermediate, INC LFT'S, MUSCULAR PAIN, 08/11/19) nickel (Verified Allergy, Intermediate, SWELLING, 08/11/19) levofloxacin (Verified Allergy, Unknown, SWELLING (FROM LEVAQUIN), 08/11/19) pregabalin (Verified Allergy, Unknown, RASH (FROM LYRICA), 08/11/19) NSAIDS (Non-Steroidal Anti-Inflamma (Verified Adverse Reaction, Intermediate, ABDOMINAL PAIN, HX GI ULCER, 08/11/19) cevimeline (Verified Adverse Reaction, Intermediate, UPSET STOMACH, 08/11/19) KASSIE GALINDO DO Oct 28, 2019 19:21
--- NOTE | 2019-10-28 19:21 | IPNPDOC ---
Date Seen The patient was seen on 10/28/19. Progress Note SUBJECTIVE: Patient is a -year-old [RACE] [GENDER] with OBJECTIVE PHYSICAL EXAMINATION: VITAL SIGNS: Please see below. GENERAL: HEENT: CARDIOVASCULAR: . RESPIRATORY: . ABDOMINAL: EXTREMITIES: NEUROLOGICAL: PSYCHOLOGICAL: LABORATORY DATA, IMAGING STUDIES, MICROBIOLOGY: Please see below. Echocardiogram: . DVT prophylaxis ordered?: ASSESSMENT AND PLAN: This is a -year-old [RACE] [GENDER] with . PROBLEMS: 1. : . 2. : . 3. : . DISPOSITION: . VS[facility]/I&O Vital Signs Date Time Temp Pulse Resp B/P (MAP) Pulse Ox O2 Delivery O2 Flow Rate FiO2 10/28/19 18:30 78 20 156/79 (104) 93 Nasal Cannula 2.0 10/28/19 17:06 97.7 Laboratory Data 24H LABS Laboratory Tests 2 10/28/19 17:29: Immature Granulocyte % (Auto) 0.7, Neutrophils (%) (Auto) 61.5, Lymphocytes (%) (Auto) 28.4, Monocytes (%) (Auto) 6.6H, Eosinophils (%) (Auto) 2.3, Basophils (%) (Auto) 0.5, Neutrophils # (Auto) 6.4, Lymphocytes # (Auto) 3.0, Monocytes # (Auto) 0.7, Eosinophils # (Auto) 0.2, Basophils # (Auto) 0.1, Nucleated Red Blood Cells % (auto) 0.0, Anion Gap 3L, Glomerular Filtration Rate > 60.0, Calcium Level 8.6L, Total Bilirubin 0.2, Direct Bilirubin < 0.1, Aspartate Amino Transf (AST/SGOT) 14, Alanine Aminotransferase (ALT/SGPT) 23, Alkaline Phospha tase 142H, Total Creatine Kinase 59, Creatine Kinase MB < 1.0, Creatine Kinase MB Relative Index 1.69, Troponin I < 0.02, Total Protein 7.1, Albumin 3.0L, Albumin/Globulin Ratio 0.73L 10/28/19 18:08: Blood Gas Bicarbonate Standard 26.5, Venous Blood pH 7.366, Venous Blood Partial Pressure CO2 52.0H, Venous Blood Partial Pressure O2 54.2H, Venous Blood Total Carbon Dioxide 30.7H, Venous Blood HCO3 29.1H, Venous Blood Oxygen Saturation 87.6H, Venous Blood Base Excess 2.6H CBC/BMP Laboratory Tests 10/28/19 17:29 Microbiology Microbiology 10/28/19 Respiratory Virus Panel (PCR) (ARACELI), Received Pending 10/28/19 Blood Culture, Received Pending KASSIE GALINDO DO Oct 28, 2019 19:21
[2019-10-28] MEDS ORDERED: PRED20TA PO (19:38)
[2019-10-28 19:45] VITALS: BP 147/77
== END 2019-10-28 19:57 | disposition home or self-care (01) ==
LOC: M ED 17:06
DX: J44.1 Chronic obstructive pulmonary disease with (acute) exacerbation (principal); I11.9 Hypertensive heart disease without heart failure; E11.9 Type 2 diabetes mellitus without complications; E66.9 Obesity, unspecified; E03.9 Hypothyroidism, unspecified; M35.00 Sjogren syndrome, unspecified; G47.30 Sleep apnea, unspecified; F17.210 Nicotine dependence, cigarettes, uncomplicated; Z88.8 Allergy status to other drugs, medicaments and biological substances; Z88.6 Allergy status to analgesic agent; Z88.1 Allergy status to other antibiotic agents; Z91.048 Other nonmedicinal substance allergy status; Z79.51 Long term (current) use of inhaled steroids; Z79.899 Other long term (current) drug therapy
CPT/HCPCS: 71045; 80048; 80076; 82550; 82553; 82803; 84484; 85025; 87040; 87486; 87581; 87633; 87798; 93005; 93041; 94640; 94760; 96374; 99285; J2930

== ENCOUNTER → 2019-12-01 | Outpatient (CLI) | payer MEDICARE, BC, OTHER ==
[~2019-12-01] MED LIST changes: +PRED20TA PO
--- NOTE | 2019-12-03 00:23 | ECWPNPC ---
PATIENT NAME: SARAVANAN DAUGHERTY : 1950 GENDER: FEMALE VISIT DATE: 12/01/2019 DISCHARGE DATE: 12/01/19957 VISIT LOCKED DATE TIME: PHYSICIAN: JULIANA COOLEY RESOURCE: JULIANA COOLEY REASON FOR APPOINTMENT 1. W/C, MED MGMNT HISTORY OF PRESENT ILLNESS HISTORY OF PRESENT ILLNESS: HERE FOR ROUTINE F/U AND MANAGEMENT OF PERSISTENT LEFT KNEE PAIN. RATING PAIN VAS 6/10.REPORTS EPISODIC SHOOTING PAIN LEFT KNEE RADIATING UP LEFT THIGH.THIS IS CHRONIC PAIN RELATED TO WORK INJURY 04-29-05.CURRENTLY USING OXYCONTIN 15MG QD,HYDROMORPHONE 2MG Q12H PRN MDD2,CYMBALTA 60MG QD AND AMRIX 15MG 2 TAB DAILY.PATIENT IS REQUESTING TO BE OFF OF NARCOTIC PAIN MEDICATIONS. SHE WILL BE STARTING A JOB IN THE NEAR FUTURE. DISCUSSED WEANING DOWN AND OFF OF OXYCONTIN AND HYDROMORPHONE. PAIN THE PATIENT DESCRIBES THE PAIN... FALL RISK SCREENING: SCREENING :NO FALLS REPORTED IN THE LAST YEAR CURRENT MEDICATIONS TAKING AMRIX 15 MG CAPSULE EXTENDED RELEASE 24 HOUR 2 CAPSULE ORALLY ONCE DAILY TAKING VENTOLIN HFA 108 (90 BASE) MCG/ACT AEROSOL SOLUTION 2 PUFFS NEEDED INHALATION EVERY 4 HOURS NEEDED, NOTES: FREQUENCY CHANGE TAKING IPRATROPIUM-ALBUTEROL 0.5-2.5 (3) MG/3ML SOLUTION 3 ML INHALATION BID PRN, NOTES: BID PRN TAKING ADVAIR DISKUS 250-50 MCG/DOSE AEROSOL POWDER BREATH ACTIVATED 1 PUFF INHALATION DAILY TAKING AMLODIPINE BESYLATE 5 MG TABLET 1 TABLET ORALLY BID TAKING PROBIOTIC - CAPSULE 1 CAP ORALLY DAILY TAKING CYMBALTA 60 MG CAPSULE DELAYED RELEASE PARTICLES 1 CAP ORALLY ONCE DAILY TAKING CYMBALTA 20 MG CAPSULE DELAYED RELEASE PARTICLES 1 CAP ORALLY BEFORE BEDTIME TAKING HYDROXYZINE HCL 50 MG TABLET 1 TABLET NEEDED ORALLY QID TAKING BENZONATATE 100 MG CAPSULE 1 CAP ORALLY Q 8 HOURS X 10 DAYS TAKING ARNICA - TINCTURE DIRECTED TOPICALLY GEL OTC BID FOR KNEE PAIN TAKING ONETOUCH VERIO - STRIP 1 STRIP IN VITRO DAILY TAKING ONETOUCH VERIO - STRIP 1 LANCET IN VITRO DAILY TAKING METFORMIN HCL 1000 MG TABLET 1 TABLET WITH MEALS ORALLY TWICE A DAY TAKING RANITIDINE HCL 150 MG CAPSULE 1 CAPSULE ORALLY TWICE A DAY TAKING BENADRYL ALLERGY 25 MG TABLET 1 TABLET NEEDED ORALLY EVERY 8 HRS TAKING ROPINIROLE HCL 1 MG TABLET 2 TABLETS ORALLY BID TAKING ZOFRAN 4 MG TABLET 1 TABLET ORALLY ONCE A DAY TAKING ALBUTEROL SULFATE HFA 108 (90 BASE) MCG/ACT AEROSOL SOLUTION 1 PUFF INHALATION EVERY 4 HOURS NEEDED TAKING LEVOTHYROXINE SODIUM 25 MCG CAPSULE 1 CAPSULE ON AN EMPTY STOMACH IN THE MORNING ORALLY ONCE A DAY TAKING OXYCODONE HCL ER 15 MG TABLET ER 12 HOUR ABUSE-DETERRENT 1 TABLET ORALLY DAILY MDD1, NOTES: FREQUENCY CHANGE TAKING HYDROMORPHONE HCL 2 MG TABLET 1 TAB ORALLY TID PRN MDD3, NOTES: DOSAGE CHANGE NOT-TAKING PREDNISONE 5 MG TABLET DELAYED RELEASE 2 TABLETS X 5D, THEN 1 TABLET 5DAYS ORALLY ONCE A DAY, NOTES: 2 WEEKS LEFT NOT-TAKING PREDNISONE 5 MG TABLET 2 TABLETS X5D, 1 TABLET X5DAYS ORALLY ONCE A DAY NOT-TAKING PREDNISONE 10 MG TABLET DIRECTED ORALLY 2 TABS BID X5 DAYS, 1 TAB BID X5 DAYS NOT-TAKING NYSTATIN 250255 UNIT/GM POWDER 1 APPLICATION TO AFFECTED AREA EXTERNALLY TWICE A DAY, NOTES: PRN NOT-TAKING BENZONATATE 100 MG CAPSULE 1 CAPSULE NEEDED ORALLY THREE TIMES A DAY NOT-TAKING DOXYCYCLINE HYCLATE 100 MG TABLET DELAYED RELEASE 1 TABLET ORALLY BID X 7 DAYS NOT-TAKING AMLODIPINE BESYLATE 5 MG TABLET 1 TABLET ORALLY ONCE A DAY MEDICATION LIST REVIEWED AND RECONCILED WITH THE PATIENT PAST MEDICAL HISTORY 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 JALLOH T2DM HYPOTHYROIDISM 10 CM RETROCARDIAC HIATAL HERNIA SJOGREN SYNDROME RESTLESS LEGS ARNEL MIGRAINES ACUTE KIDNEY FAILUTRE(DEHYDRATION) CHF ACUTE BRONCHITIS MORBID OBESITY HIATAL HERNIA ACUTE RESPIRATORY FAILURE WITH HYPOXEMIA HYPERTENSION ALLERGIES NICKEL: SWELLING - ALLERGY STATINS (FOR ALLERGY USE ONLY): INCREASED LFTS, MUSCULAR PAIN - ALLERGY NSAIDS: ABDOMINAL PAIN, GI ULCER - ALLERGY LEVAQUIN: FACIAL SWELLING - ALLERGY LYRICA: ITCHING - ALLERGY LACTOSE: DIARRHEA, ABDOMINAL PAIN - ALLERGY LATEX (FOR ALLERGY USE ONLY): RASH - ALLERGY SURGICAL HISTORY TONSILLECTOMY GANGLION CYST WITH CARPAL RELEASE, LEFT WRIST SECTION X2 APPENDECTOMY LEFT ARTHROSCOPY LEFT KNEE REPLACEMENT X2 2008, 2013 [employer] FAMILY HISTORY FATHER: , [place], DIABETES, DIAGNOSED WITH DIABETES, HYPERTENSION, UNSPECIFIED HEART DISEASE MOTHER: , CANCER, OTHER MALIGNANT NEOPLASM OF UNSPECIFIED SITE SIBLINGS: ALIVE, HEART DISEASE, CANCER SON(S): ALIVE DAUGHTER(S): ALIVE, LUPUS 2 BROTHER(S) - HEALTHY. 1 SON(S) , 1 DAUGHTER(S) - HEALTHY. MOM-ORAL CA\\\\N. SOCIAL HISTORY GENERAL: TOBACCO USE ARE YOU A:FORMER SMOKER HOW LONG HAS IT BEEN SINCE YOU LAST SMOKED?5-10 YEARS LATEX QUESTIONNAIRE LATEX ALLERGY : HAVE YOU EVER DEVELOPED ANY TYPE OF REACTION AFTER HANDLING LATEX PRODUCTS SUCH RUBBER GLOVES, CONDOMS, DIAPHRAGMS, BALLOONS, SOCKS, OR UNDERWEAR?YES SEE ALLERGIES, RASH, BURNING LATEX ALLERGY : HAVE YOU EVER DEVELOPED ANY TYPE OF REACTION DURING OR AFTER DENTAL APPOINTMENT, VAGINAL/RECTAL EXAMINATION, SURGICAL PROCEDURE, OR ANY OTHER EXPOSURE?NO DATE ASKED : 08/23/2019 LATEX RISK : HAVE YOU EVER HAD ANY DIFFICULTY BREATHING OR HIVES AFTER EATING OR HANDLING ANY FRUITS, OR VEGETABLES; SUCH KIWI, BANANAS, STONE FRUITS, OR CHESTNUTSNO LATEX RISK : DO YOU HAVE A PREVIOUS PERSONAL HISTORY OF MORE THAN NINE SURGERIES, SPINA BIFIDA, OR REPEATED CATHERIZATIONS? NO LATEX RISK : ARE YOU FREQUENTLY EXPOSED TO LATEX PRODUCTS IN YOUR OCCUPATION?NO BMI CARE GOAL FOLLOW-UP ABOVE NORMAL BMI FOLLOW-UPLIFESTYLE EDUCATION REGARDING DIET ALCOHOL SCREENING DID YOU HAVE A DRINK CONTAINING ALCOHOL IN THE PAST YEAR?NO POINTS0 INTERPRETATIONNEGATIVE RECREATIONAL DRUG USE DRUG USE?NO CAFFEINE CAFFEINE USE?YES SEXUAL HX HAD SEX IN THE LAST 12 MONTHS (VAGINAL, ORAL, OR ANAL)?YES WITHMEN ONLY HIV / HEP-C SCREENING HIV TEST OFFERED TO PATIENT:YES DATE OFFERED:03/26/2017 TEST ACCEPTED:NO HEP-C TEST OFFERED TO PATIENT:YES DATE OFFERED:03/26/2017 REASON:PATIENT DECLINED ALREADY TESTED TEST ACCEPTED:NO REASON:PATIENT DECLINED [id number] NONE LANGUAGE LANGUAGES SPOKEN:BENGALI LEARNING BARRIERS / SPECIAL NEEDS CHANGE FROM LAST VISIT?NO BARRIERS TO LEARNING?NO HEARING IMPAIRED?NO VISION IMPAIRED?YES COGNITIVELY IMPAIRED?NO :CORRECTIVE LENSES READINESS TO LEARN?YES LEARNING PREFERENCES?NO LEARNING CAPABILITIES PRESENT?YES EMOTIONAL BARRIERS?NO SPECIAL DEVICES?NO MILK TANKER DRIVER NEEDED?NO DOMESTIC VIOLENCE DO YOU FEEL SAFE IN YOUR ENVIRONMENT?YES OCCUPATION: UNEMPLOYED, UNEMPLOYED. DIET: REGULAR, REGULAR. EXERCISE: NO REGULAR EXERCISE, NO REGULAR EXERCISE. MARITAL STATUS: , . OTHERS AT HOME: SPOUSE, SPOUSE. NEW PATIENT PAIN DIARY TODAY'S VISITNOTES PATIENT DESCRIBES PAIN :IT COMES AND GOES, THROBBING 12/01/19 FROM 0-10, WHAT LEVEL IS YOUR PAIN TODAY?6 PRECIPITATING FACTORS SITTING, GOING FROM SITTING TO STANDING POSITION ALLEVIATING FACTORS ELEVATING LEGS IMPACT ON FUNCTION YES PAIN CLINIC PFS, CLERGY, PUBLIC HEALTH REFERRALS PFS REFERRAL NEEDED?NO CLERGY REFERRAL NEEDED?NO PUBLIC HEALTH REFERRAL NEEDED?NO WAS THE PROVIDER NOTIFIED OF ANY PERTINENT INFO?YES N/A HAS THE PATIENT BEEN EDUCATED REGARDING HIS/HER PLAN OF CARE?YES HAS THE PATIENT BEEN EDUCATED REGARDING PAIN, THE RISK FOR PAIN, THE IMPORTANCE OF EFFECTIVE PAIN MANAGEMENT, AND THE PAIN ASSESSMENT PROCESS?YES ADVANCE DIRECTIVE ADVANCE DIRECTIVE DISCUSSED WITH PATIENT:YES HEALTH CARE PROXY ROME[facility] WHITE 07/22/18 1221 REVIEWED WITH PT. ADREVIEWED WITH PATIENT 12/08/18 1049 BVREVIEWED WITH PT 02/21/19 1039 BVREVIEWED WITH PATIENT 05/31/2019 LASREVIEWED WITH PATIENT 2019-08-23 DS. HOSPITALIZATION/MAJOR DIAGNOSTIC PROCEDURE SURGERIES COPD 08/13/2016 PNEUMONIA/RESP FAILURE 2016 COPD, ACUTE KIDNEY FAILURE(DEHYDRATION) 08/2019 REVIEW OF SYSTEMS REVIEWED BY: PROVIDER: JULIANA JIANG . CONSTITUTIONAL: ANY CHANGE IN YOUR MEDICAL CONDITION? NO . CHILLS NO . FEVER NO . INFECTION: DO YOU HAVE NEW INFECTIONS? YES, BRONCHITIS RESOLVED . DO YOU HAVE HISTORY OF MRSA? NO . MUSCULOSKELETAL: ANY NEW PATTERNS OF PAIN OR NUMBNESS? NO . GASTROENTEROLOGY: ANY NEW CHANGE IN BOWEL CONTROL? NO . GENITOURINARY: ANY NEW CHANGE IN BLADDER CONTROL? NO . IS THERE A CHANCE YOU COULD BE ? NO . HEMATOLOGY/LYMPH: DO YOU TAKE ANY BLOOD THINNERS? (FOR EXAMPLE- COUMADIN, PLAVIX, AGGRENOX, PLATEL, PRADAXA, OR XARELTO) NO . WHEN WAS YOUR LAST DOSE? DATE: TIME: . NEUROLOGY: HAVE YOU FALLEN IN THE PAST 12 MONTHS? YES, PT FELL 09/2019 FROM WEAKNESS IN LEFT LEG, PT DENIES INJURIES . ANY NEW EXTREMITY NUMBNESS OR WEAKNESS? NO . CARDIOLOGY: DO YOU HAVE A PACEMAKER OR DEFIBRILLATOR? NO . RESPIRATORY: HAVE YOU BEEN SICK IN THE PAST WEEK? NO . FEVER NO . FLU LIKE SYMPTOMS? NO . COUGH NO . INTEGUMENTARY: DO YOU HAVE ANY RASHES OR OPEN SORES? NO . ALLERGIC/IMMUNO: ARE YOU ALLERGIC TO IV DYE? NO . ANY NEW ALLERGIES? NO . PSYCHIATRIC: DO YOU HAVE THOUGHTS OF HURTING YOURSELF OR SOMEONE ELSE? NO . ARE YOU ABUSED, NEGLECTED, OR IN AN UNSAFE ENVIRONMENT? NO . ENDOCRINOLOGY: ARE YOU DIABETIC? YES . OTHER: DO YOU NEED ANY PRESCRIPTIONS? YES, OXY . IF YES, PLEASE LIST: ____ . ANY NEW PROBLEMS WITH YOUR MEDICATIONS? NO . WHEN DID YOU LAST EAT? ____ . WHEN DID YOU LAST DRINK? ____ . WHAT DID YOU LAST DRINK? ____ . NAME OF PERSON DRIVING YOU HOME? ____ . DO YOU HAVE ANY OTHER QUESTIONS OR CONCERNS NO . VITAL SIGNS WT 228.8 LBS, HT 62", BMI 41.84 INDEX, BP 144/72 MM HG, HR 90 /MIN, RR 16 /MIN, TEMP 97.2 F, OXYGEN SAT % 96, REVIEWED BY: CIRILO. EXAMINATION GENERAL EXAMINATION: GENERALAWAKE,ALERT ,PLEASANT . PSYCHAFFECT NORMAL . LUNGS:LUNG KRISHNAN ARE CLEAR TO AUSCULTATION BILATERALLY. GOOD MOVEMENT OF AIR . HEART:S1, S2 IN A REGULAR RATE AND RHYTHM. NO SIGNIFICANT MURMURS, RUBS OR GALLOPS NOTED . ASSESSMENTS LEFT KNEE PAIN - M25.562 (PRIMARY) TREATMENT LEFT KNEE PAIN CONTINUE AMRIX CAPSULE EXTENDED RELEASE 24 HOUR, 15 MG, 2 CAPSULE, ORALLY, ONCE DAILY CONTINUE CYMBALTA CAPSULE DELAYED RELEASE PARTICLES, 60 MG, 1 CAP, ORALLY, ONCE DAILY STOP CYMBALTA CAPSULE DELAYED RELEASE PARTICLES, 20 MG, 1 CAP, ORALLY, BEFORE BEDTIME CONTINUE OXYCODONE HCL ER TABLET ER 12 HOUR ABUSE-DETERRENT, 15 MG, 1 TABLET, ORALLY, DAILY MDD1, NOTES: FREQUENCY CHANGE DECREASE HYDROMORPHONE HCL TABLET, 2 MG, 1 TAB, ORALLY, TID PRN MDD3, NOTES: DOSAGE CHANGE NOTES: DECREASE HYDROMORPHONE 2MG TO 2X PER DAY X2 WEEKS THEN 1 TAB DAILY X2 WEEKS THEN STOP. , ISTOP REGISTRY REVIEWED AND DEMONSTRATES COMPLLIANCE. RECENT URINE TOXICOLOGY REVIEWED. NO UNAUTHORIZED MEDICATIONS. NO ILLICIT SUBSTANCES AND PRESCRIBED MEDICATIONS WERE PRESENT. , RISKS OF NARCOTIC/OPIOD MEDICATIONS INCLUDES BUT IS NOT LIMITED TO RISK OF DEPENDANCE/DEVELOPMENT OF ADDICTION, MOOD DISTURBANCE AND DEPRESSION, OSTEOPOROSIS, HORMONAL AND LABIDAL CHANGES, RESPIRATORY DEPRESSION AND . PATIENT IS ADVISED NOT TO DRIVE OR DRINK ALCOHOL WHILE ON THESE MEDICATIONS. PROCEDURES PN WORKMANS' COMP OPINION IN YOUR OPINION, WAS THE INCIDENT THAT THE PATIENT DESCRIBED THE COMPETENT MEDICAL CAUSE OF THIS INJURY/ILLNESS? YES ARE THE PATIENT'S COMPLAINTS CONSISTENT WITH HIS/HER HISTORY OF THE INJURY/ILLNESS? YES IS THE PATIENT'S HISTORY OF THE INJURY/ILLNESS CONSISTENT WITH YOUR OBJECTIVE FINDING? YES WHAT IS THE PERCENTAGE OF TEMPORARY IMPAIRMENT? MODERATE TO MARKED = 66.7% IS THE PATIENT WORKING? NO DOCTOR ON SITE: HAYDEN JENSEN MD PROCEDURE CODES FA211 ESTABILISHED PATIENT [facility] CHARGE DISPOSITION & COMMUNICATION FOLLOW UP 6 WEEKS (REASON: MED MGMNT) ELECTRONICALLY SIGNED BY DEIDRE MERCEDES ON 12/02/2019 AT 02:01 PM EDT DISCLAIMER : THIS IS A VISIT SUMMARY EXTRACTED FROM THE [employer] CHART. IT IS NOT A COPY OF THE [employer] PROGRESS NOTE. ELOISA
== END ==
LOC: M PAIN 09:00
PROVIDERS: ATTEND Nurse Practitioner Family
DX: M25.562 Pain in left knee (principal); I10 Essential (primary) hypertension; J44.9 Chronic obstructive pulmonary disease, unspecified; E11.9 Type 2 diabetes mellitus without complications; Z79.891 Long term (current) use of opiate analgesic; Z79.899 Other long term (current) drug therapy; Z87.891 Personal history of nicotine dependence; Z88.8 Allergy status to other drugs, medicaments and biological substances; Z91.040 Latex allergy status; Z91.048 Other nonmedicinal substance allergy status

== ENCOUNTER → 2019-12-01 | Outpatient (REF) | payer MEDICARE, BC ==
[2019-12-01 17:52] LABS: BASO % 0.3 % (0.0-1.0); EOS # 0.1 10^3/uL (0.0-0.5); EOS % 0.7 % (0.0-3.0); HEMATOCRIT 40.3 % (36.0-47.0); HEMOGLOBIN 13.5 g/dl (12.0-15.5); LYMPH # 3.6 10^3/uL (1.5-5.0); LYMPH % 30.9 % (24.0-44.0); MEAN CORPUSCULAR HEMOGLOBIN 28.1 pg (27.0-33.0); MEAN CORPUSCULAR HGB CONC 33.5 g/dl (32.0-36.5); MEAN CORPUSCULAR VOLUME 83.8 fl (80.0-96.0); MONO # 0.9 10^3/uL (0.0-0.8); NEUTROPHILS # 6.9 10^3/uL (1.5-8.5); NEUTROPHILS % 59.4 % (36.0-66.0); PLATELET COUNT, AUTOMATED 319 10^3/uL (150-450); RED BLOOD COUNT 4.81 10^6/uL (4.00-5.40); WHITE BLOOD COUNT 11.6 10^3/uL (4.0-10.0)
[2019-12-01 18:10] LABS: HEMOGLOBIN A1c 7.9 %
[2019-12-01 18:40] LABS: ALBUMIN 3.3 GM/DL (3.2-5.2); ALT/SGPT 22 U/L (12-78); BILIRUBIN,TOTAL 0.3 MG/DL (0.2-1.0); BLOOD UREA NITROGEN 19 MG/DL (7-18); CALCIUM LEVEL 9.1 MG/DL (8.8-10.2); CARBON DIOXIDE LEVEL 30 MEQ/L (21-32); CHLORIDE LEVEL 103 MEQ/L (98-107); CHOLESTEROL LEVEL 251 MG/DL (<200); CHOLESTEROL RISK RATIO 4.648 (<5); CREATININE FOR GFR 0.97 MG/DL (0.55-1.30); FREE T4 1.06 NG/DL (0.76-1.46); GLOMERULAR FILTRATION RATE > 60.0 (>45); GLUCOSE, FASTING 104 MG/DL (70-100); HDL CHOLESTEROL 54 MG/DL (>40); LDL CHOLESTEROL 146 MG/DL (<100); NON-HDL-C 197 MG/DL; POTASSIUM SERUM 4.1 MEQ/L (3.5-5.1); SODIUM LEVEL 140 MEQ/L (136-145); TOTAL PROTEIN 7.1 GM/DL (6.4-8.2); TRIGLYCERIDES LEVEL 255 MG/DL (<150)
[2019-12-02 14:30] LABS: MALB URINE SIEMENS 22.4 MG/L; MAU/CREAT RATIO 33.4 MCG/MG (0.0-30.0)
== END ==
LOC: M SFHCPLAZ 15:23
PROVIDERS: ATTEND Physician Assistant Medical
DX: E11.9 Type 2 diabetes mellitus without complications (principal); I10 Essential (primary) hypertension; E03.9 Hypothyroidism, unspecified

== ENCOUNTER 2019-12-21 07:35 | Emergency (ER) | payer MEDICARE, BC ==
[~2019-12-21] VITALS: Ht 160 cm; Wt 104.4 kg
[2019-12-21] MEDS ORDERED: TORS5TAB2 PO (07:54)
[2019-12-21] MEDS ORDERED: ADV250INH INH (07:54)
[2019-12-21] MEDS ORDERED: EPLE25TA PO (07:54)
[2019-12-21] MEDS ORDERED: CENT1TAB PO (07:54)
[2019-12-21] MEDS ORDERED: BISO5TAB14 PO (07:54)
[2019-12-21] MEDS ORDERED: ESOM0.1C PO (07:54)
[2019-12-21] MEDS ORDERED: METF10004 PO (07:54)
[2019-12-21] MEDS ORDERED: CAND4TAB PO (07:54)
[2019-12-21] MEDS ORDERED: ACETAMINOPHEN 325 MG TAB PO ONE (08:15)
[2019-12-21] MEDS ORDERED: ALBUTEROL 90 MCG/ACT 8GM HFA INHALER INH PRN (08:15)
[2019-12-21] MEDS ORDERED: methylPREDNISolone INJ 125 MG/2 ML VIAL (J2930) As Ordered ONE (08:23)
[2019-12-21] MEDS ORDERED: methylPREDNISolone INJ 125 MG/2 ML VIAL (J2930) IV ONE (08:30)
[2019-12-21 09:22] LABS: BASO % 0.5 % (0.0-1.0); EOS # 0.2 10^3/uL (0.0-0.5); EOS % 2.2 % (0.0-3.0); HEMATOCRIT 43.6 % (36.0-47.0); HEMOGLOBIN 14.3 g/dl (12.0-15.5); LYMPH # 2.3 10^3/uL (1.5-5.0); LYMPH % 27.1 % (24.0-44.0); MEAN CORPUSCULAR HEMOGLOBIN 27.7 pg (27.0-33.0); MEAN CORPUSCULAR HGB CONC 32.8 g/dl (32.0-36.5); MEAN CORPUSCULAR VOLUME 84.5 fl (80.0-96.0); MONO # 0.6 10^3/uL (0.0-0.8); MONO % 6.7 % (0.0-5.0); NEUTROPHILS # 5.3 10^3/uL (1.5-8.5); NEUTROPHILS % 62.9 % (36.0-66.0); PLATELET COUNT, AUTOMATED 283 10^3/uL (150-450); RED BLOOD COUNT 5.16 10^6/uL (4.00-5.40); WHITE BLOOD COUNT 8.4 10^3/uL (4.0-10.0)
[2019-12-21 09:53] LABS: ALBUMIN 3.2 GM/DL (3.2-5.2); ALT/SGPT 25 U/L (12-78); BILIRUBIN,DIRECT < 0.1 MG/DL (0.0-0.2); BILIRUBIN,TOTAL 0.3 MG/DL (0.2-1.0); BLOOD UREA NITROGEN 14 MG/DL (7-18); CALCIUM LEVEL 9.1 MG/DL (8.8-10.2); CARBON DIOXIDE LEVEL 30 MEQ/L (21-32); CHLORIDE LEVEL 103 MEQ/L (98-107); CK-MB VALUE MASS 1.1 NG/ML (<3.6); CPK CREATINE PHOSPHOKINASE 84 U/L (26-192); CREATININE FOR GFR 0.96 MG/DL (0.55-1.30); GLOMERULAR FILTRATION RATE > 60.0 (>45); GLUCOSE, FASTING 168 MG/DL (70-100); MB/CK RELATIVE INDEX 1.31 (< OR =4); NT-PRO BNP 147 PG/ML (<125); POTASSIUM SERUM 4.6 MEQ/L (3.5-5.1); SODIUM LEVEL 140 MEQ/L (136-145); THYROXINE (T4) 9.5 UG/DL (4.5-12.0); TOTAL PROTEIN 7.3 GM/DL (6.4-8.2); TROPONIN I < 0.02 NG/ML (< 0.10)
--- NOTE | 2019-12-21 10:01 | REP ---
CHEST SINGLE VIEW: Single view of the chest is performed and compared to a prior study of 10/28/2019. There is large hiatal hernia. There is mild elevation of the left hemidiaphragm. There is mild linear fibroatelectatic change in each lung base with no evidence of acute infiltrate. The mediastinal silhouette is unchanged. IMPRESSION: Stable chronic findings with no acute infiltrate. Electronically Signed by Paul Rodgers MD 12/21/2019 12:45 P
[2019-12-21 10:05] VITALS: BP 179/83
[2019-12-21] MEDS ORDERED: PRED20TA PO (10:19)
--- NOTE | 2019-12-22 22:01 | ECGEPIP ---
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
== END 2019-12-21 10:39 | disposition home or self-care (01) ==
LOC: M ED 07:35
DX: J44.1 Chronic obstructive pulmonary disease with (acute) exacerbation (principal); R22.43 Localized swelling, mass and lump, lower limb, bilateral; E11.9 Type 2 diabetes mellitus without complications; I10 Essential (primary) hypertension; I50.9 Heart failure, unspecified; E03.9 Hypothyroidism, unspecified; G25.81 Restless legs syndrome; M19.90 Unspecified osteoarthritis, unspecified site; M35.00 Sjogren syndrome, unspecified; Z79.899 Other long term (current) drug therapy; Z79.890 Hormone replacement therapy; Z79.84 Long term (current) use of oral hypoglycemic drugs; Z88.1 Allergy status to other antibiotic agents; Z88.8 Allergy status to other drugs, medicaments and biological substances; Z91.048 Other nonmedicinal substance allergy status; Z87.891 Personal history of nicotine dependence
CPT/HCPCS: 71045; 80048; 80076; 82550; 82553; 83605; 83880; 84436; 84443; 84484; 85025; 87040; 93005; 93041; 94640; 94760; 96374; 99284; J2930; U0002

== ENCOUNTER → 2020-01-17 | Outpatient (CLI) | payer MEDICARE, BC ==
[~2020-01-17] MED LIST changes: +BISO5TAB14 PO; +CAND4TAB PO; +CENT1TAB PO; +EPLE25TA PO; +ESOM0.1C PO; +TORS5TAB2 PO
--- NOTE | 2020-01-18 23:38 | ECWPNPC ---
PATIENT NAME: SARAVANAN DAUGHERTY : 1950 GENDER: FEMALE VISIT DATE: 01/17/2020 DISCHARGE DATE: 01/17/20 1502 VISIT LOCKED DATE TIME: PHYSICIAN: JULIANA COOLEY RESOURCE: JULIANA COOLEY REASON FOR APPOINTMENT 1. W/C KNEE HISTORY OF PRESENT ILLNESS GENERAL: HERE FOR FOLLOW-UP OF A WORK RELATED INJURY. SUFFERS FROM CHRONIC LEFT KNEE PAIN. AT LAST VISIT PATIENT ASKED US TO REDUCE NARCOTIC PAIN MEDICATION SHE WAS STARTING A NEW JOB. WE REDUCED HYDROMORPHONE WITH INSTRUCTIONS TO DECREASE BY 1 TABLET EVERY FEW WEEKS. CURRENTLY ON 1 TABLET DAILY. SHE STATES THAT SHE'S BEEN HAVING WITHDRAWAL SYMPTOMS. DESCRIBES NAUSEA, DIARRHEA AND GENERALIZED MALAISE. DISCUSSED TREATMENT PLAN. -. PAIN SCREENING: PATIENT HAS A COMPLAINT OF ACUTE OR CHRONIC PAIN :YES LOCATION OF PAIN:KNEES LEFT INTENSITY OF PAIN (SCALE OF 1 TO 10):6 WHAT DOES YOUR PAIN FEEL LIKE:ACHING, STABBING, THROBBING, SHOOTING DURATION:CONTINOUS, CONSTANT, ALL DAY PAIN IS INCREASED BY:ACTIVITIES, PROLONGED STANDING PAIN IS DECREASED BY:USE OF PAIN MEDICATIONS, SITTING PAIN HAS INTERFERED WITH THE FOLLOWING:MOOD, WALKING ABILITY, HOUSEWORK, RELATIONSHIP WITH OTHERS, ENJOYMENT OF LIFE PLAN/GOALS/TREATMENT/INTERVENTION/FOLLOW UP:SEE PLAN FALL RISK SCREENING: SCREENING :NO FALLS REPORTED IN THE LAST YEAR DEPRESSION SCREENING: PHQ-2 (2015 EDITION) LITTLE INTEREST OR PLEASURE IN DOING THINGS?NOT AT ALL FEELING DOWN, DEPRESSED, OR HOPELESS?NOT AT ALL TOTAL SCORE0 NURSING NOTE: -. PAIN CENTER INTAKE QUESTIONS: DO YOU HAVE A HISTORY OF MRSA? :NO DO YOU TAKE A BLOOD THINNERS? :NO DO YOU HAVE ANY BLEEDING DISORDERS? :NO ANY NEW NUMBNESS OR WEAKNESS IN YOUR LEGS OR ARMS? :NO ANY PACEMAKER,DEFIBRILLATOR, OR DORSAL COLUMN STIMULATOR? :NO DO YOU HAVE ANY RASHES OR OPEN SORES? :NO ARE YOU ALLERGIC TO IV DYE? :NO ARE YOU DIABETIC? :NO ANY NEW PROBLEMS WITH YOUR MEDICATIONS? :NO HAVE YOU RECEIVED A VACCINE IN THE PAST 30 DAYS? :NO DO YOU PLAN TO RECEIVE A VACCINE IN THE NEXT 21 DAYS? :NO DO YOU NEED ANY PRESCRIPTION? :YES HYDROMORPHONE, CYCLOBENZAPRINE, OXYCONTIN ER DO YOU TAKE ANY IMMUNOSUPPRESSIVE MEDICATIONS? :NO IS THERE A CHANCE YOU COULD BE ? :NO ARE YOU BREAST FEEDING? :NO CURRENT MEDICATIONS TAKING RANITIDINE HCL 150 MG CAPSULE 1 CAPSULE ORALLY TWICE A DAY TAKING METFORMIN HCL 1000 MG TABLET 1 TABLET WITH MEALS ORALLY TWICE A DAY TAKING PROBIOTIC - CAPSULE 1 CAP ORALLY DAILY TAKING HYDROXYZINE HCL 50 MG TABLET 1 TABLET NEEDED ORALLY QID TAKING BENZONATATE 100 MG CAPSULE 1 CAP ORALLY Q 8 HOURS X 10 DAYS TAKING ARNICA - TINCTURE DIRECTED TOPICALLY GEL OTC BID FOR KNEE PAIN TAKING ONETOUCH VERIO - STRIP 1 STRIP IN VITRO DAILY TAKING ONETOUCH VERIO - STRIP 1 LANCET IN VITRO DAILY TAKING BENADRYL ALLERGY 25 MG TABLET 1 TABLET NEEDED ORALLY EVERY 8 HRS TAKING ZOFRAN 4 MG TABLET 1 TABLET ORALLY ONCE A DAY TAKING ALBUTEROL SULFATE HFA 108 (90 BASE) MCG/ACT AEROSOL SOLUTION 1 PUFF INHALATION EVERY 4 HOURS NEEDED TAKING AMRIX 15 MG CAPSULE EXTENDED RELEASE 24 HOUR 2 CAPSULE ORALLY ONCE DAILY TAKING AMLODIPINE BESYLATE 5 MG TABLET 1 TABLET ORALLY BID TAKING LEVOTHYROXINE SODIUM 25 MCG CAPSULE 1 CAPSULE ON AN EMPTY STOMACH IN THE MORNING ORALLY ONCE A DAY TAKING ROPINIROLE HCL 1 MG TABLET 2 TABLETS ORALLY BID TAKING ADVAIR DISKUS 250-50 MCG/DOSE AEROSOL POWDER BREATH ACTIVATED 1 PUFF INHALATION DAILY TAKING VENTOLIN HFA 108 (90 BASE) MCG/ACT AEROSOL SOLUTION 2 PUFFS NEEDED INHALATION EVERY 4 HOURS NEEDED, NOTES: FREQUENCY CHANGE TAKING IPRATROPIUM-ALBUTEROL 0.5-2.5 (3) MG/3ML SOLUTION 3 ML INHALATION BID PRN, NOTES: BID PRN TAKING CYMBALTA 60 MG CAPSULE DELAYED RELEASE PARTICLES 1 CAP ORALLY ONCE DAILY TAKING VOLTAREN 1 % GEL 1GRAM TRANSDERMAL EVERY 6 HOURS NEEDED TAKING HYDROXYZINE PAMOATE 25 MG CAPSULE 1 CAPSULE NEEDED ORALLY DAILY PRN TAKING COMPAZINE 25MG 1 TAB ORALLY Q 8HRS. FOR NAUSEA NEEDED TAKING PROMETHAZINE HCL 12.5 MG TABLET 1 TABLET NEEDED ORALLY DAILY TAKING HYDROMORPHONE HCL 2 MG TABLET 1 TAB ORALLY QHS MDD1, NOTES: DOSAGE CHANGE TAKING OXYCODONE HCL ER 15 MG TABLET ER 12 HOUR ABUSE-DETERRENT 1 TABLET ORALLY BEFORE BEDTIMEMDD1, NOTES: FREQUENCY CHANGE NOT-TAKING PREDNISONE 5 MG TABLET DELAYED RELEASE 2 TABLETS X 5D, THEN 1 TABLET 5DAYS ORALLY ONCE A DAY, NOTES: 2 WEEKS LEFT NOT-TAKING PREDNISONE 5 MG TABLET 2 TABLETS X5D, 1 TABLET X5DAYS ORALLY ONCE A DAY NOT-TAKING PREDNISONE 10 MG TABLET DIRECTED ORALLY 2 TABS BID X5 DAYS, 1 TAB BID X5 DAYS NOT-TAKING NYSTATIN [id number] UNIT/GM POWDER 1 APPLICATION TO AFFECTED AREA EXTERNALLY TWICE A DAY, NOTES: PRN NOT-TAKING BENZONATATE 100 MG CAPSULE 1 CAPSULE NEEDED ORALLY THREE TIMES A DAY NOT-TAKING DOXYCYCLINE HYCLATE 100 MG TABLET DELAYED RELEASE 1 TABLET ORALLY BID X 7 DAYS NOT-TAKING AMLODIPINE BESYLATE 5 MG TABLET 1 TABLET ORALLY ONCE A DAY MEDICATION LIST REVIEWED AND RECONCILED WITH THE PATIENT PAST MEDICAL HISTORY 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 JALLOH T2DM HYPOTHYROIDISM 10 CM RETROCARDIAC HIATAL HERNIA SJOGREN SYNDROME RESTLESS LEGS ARNEL MIGRAINES ACUTE KIDNEY FAILUTRE(DEHYDRATION) CHF ACUTE BRONCHITIS MORBID OBESITY HIATAL HERNIA ACUTE RESPIRATORY FAILURE WITH HYPOXEMIA HYPERTENSION ALLERGIES NICKEL: SWELLING - ALLERGY STATINS (FOR ALLERGY USE ONLY): INCREASED LFTS, MUSCULAR PAIN - ALLERGY NSAIDS: ABDOMINAL PAIN, GI ULCER - ALLERGY LEVAQUIN: FACIAL SWELLING - ALLERGY LYRICA: ITCHING - ALLERGY LACTOSE: DIARRHEA, ABDOMINAL PAIN - ALLERGY LATEX (FOR ALLERGY USE ONLY): RASH - ALLERGY SURGICAL HISTORY TONSILLECTOMY GANGLION CYST WITH CARPAL RELEASE, LEFT WRIST SECTION X2 APPENDECTOMY LEFT ARTHROSCOPY LEFT KNEE REPLACEMENT X2 2008, 2013 CATARACTS FAMILY HISTORY FATHER: , [place], DIABETES, DIAGNOSED WITH HYPERTENSION, UNSPECIFIED HEART DISEASE, DIABETES MOTHER: , CANCER, OTHER MALIGNANT NEOPLASM OF UNSPECIFIED SITE SIBLINGS: ALIVE, HEART DISEASE, CANCER SON(S): ALIVE DAUGHTER(S): ALIVE, LUPUS 2 BROTHER(S) - HEALTHY. 1 SON(S) , 1 DAUGHTER(S) - HEALTHY. MOM-ORAL CA\\\\N. SOCIAL HISTORY GENERAL: TOBACCO USE ARE YOU A:FORMER SMOKER HOW LONG HAS IT BEEN SINCE YOU LAST SMOKED?5-10 YEARS LATEX QUESTIONNAIRE LATEX ALLERGY : HAVE YOU EVER DEVELOPED ANY TYPE OF REACTION AFTER HANDLING LATEX PRODUCTS SUCH RUBBER GLOVES, CONDOMS, DIAPHRAGMS, BALLOONS, SOCKS, OR UNDERWEAR?YES SEE ALLERGIES, RASH, BURNING LATEX ALLERGY : HAVE YOU EVER DEVELOPED ANY TYPE OF REACTION DURING OR AFTER DENTAL APPOINTMENT, VAGINAL/RECTAL EXAMINATION, SURGICAL PROCEDURE, OR ANY OTHER EXPOSURE?NO LATEX RISK : HAVE YOU EVER HAD ANY DIFFICULTY BREATHING OR HIVES AFTER EATING OR HANDLING ANY FRUITS, OR VEGETABLES; SUCH KIWI, BANANAS, STONE FRUITS, OR CHESTNUTSNO LATEX RISK : DO YOU HAVE A PREVIOUS PERSONAL HISTORY OF MORE THAN NINE SURGERIES, SPINA BIFIDA, OR REPEATED CATHERIZATIONS? NO LATEX RISK : ARE YOU FREQUENTLY EXPOSED TO LATEX PRODUCTS IN YOUR OCCUPATION?NO DATE ASKED : 01/17/2020 BMI CARE GOAL FOLLOW-UP ABOVE NORMAL BMI FOLLOW-UPLIFESTYLE EDUCATION REGARDING DIET ALCOHOL SCREENING DID YOU HAVE A DRINK CONTAINING ALCOHOL IN THE PAST YEAR?NO POINTS0 INTERPRETATIONNEGATIVE RECREATIONAL DRUG USE DRUG USE?NO CAFFEINE CAFFEINE USE?YES SEXUAL HX HAD SEX IN THE LAST 12 MONTHS (VAGINAL, ORAL, OR ANAL)?YES WITHMEN ONLY HIV / HEP-C SCREENING HIV TEST OFFERED TO PATIENT:YES DATE OFFERED:03/26/2017 TEST ACCEPTED:NO HEP-C TEST OFFERED TO PATIENT:YES DATE OFFERED:03/26/2017 REASON:PATIENT DECLINED ALREADY TESTED TEST ACCEPTED:NO REASON:PATIENT DECLINED ANABAPTIST [id number] NONE LANGUAGE LANGUAGES SPOKEN:MALAWIAN LEARNING BARRIERS / SPECIAL NEEDS CHANGE FROM LAST VISIT?NO BARRIERS TO LEARNING?NO HEARING IMPAIRED?NO VISION IMPAIRED?YES COGNITIVELY IMPAIRED?NO :CORRECTIVE LENSES READINESS TO LEARN?YES LEARNING PREFERENCES?NO LEARNING CAPABILITIES PRESENT?YES EMOTIONAL BARRIERS?NO SPECIAL DEVICES?NO RESTORATIVE REHAB AIDE NEEDED?NO DOMESTIC VIOLENCE DO YOU FEEL SAFE IN YOUR ENVIRONMENT?YES OCCUPATION: UNEMPLOYED, UNEMPLOYED. DIET: REGULAR, REGULAR. EXERCISE: NO REGULAR EXERCISE, NO REGULAR EXERCISE. MARITAL STATUS: , . OTHERS AT HOME: SPOUSE, SPOUSE. NEW PATIENT PAIN DIARY TODAY'S VISITNOTES PATIENT DESCRIBES PAIN :IT COMES AND GOES, THROBBING 12/01/19 FROM 0-10, WHAT LEVEL IS YOUR PAIN TODAY?6 PRECIPITATING FACTORS SITTING, GOING FROM SITTING TO STANDING POSITION ALLEVIATING FACTORS ELEVATING LEGS IMPACT ON FUNCTION YES PAIN CLINIC PFS, CLERGY, PUBLIC HEALTH REFERRALS PFS REFERRAL NEEDED?NO CLERGY REFERRAL NEEDED?NO PUBLIC HEALTH REFERRAL NEEDED?NO WAS THE PROVIDER NOTIFIED OF ANY PERTINENT INFO?YES N/A HAS THE PATIENT BEEN EDUCATED REGARDING HIS/HER PLAN OF CARE?YES HAS THE PATIENT BEEN EDUCATED REGARDING PAIN, THE RISK FOR PAIN, THE IMPORTANCE OF EFFECTIVE PAIN MANAGEMENT, AND THE PAIN ASSESSMENT PROCESS?YES ADVANCE DIRECTIVE ADVANCE DIRECTIVE DISCUSSED WITH PATIENT:YES HEALTH CARE PROXY [facility]/MAJOR DIAGNOSTIC PROCEDURE SURGERIES COPD 08/13/2016 PNEUMONIA/RESP FAILURE 2016 COPD, ACUTE KIDNEY FAILURE(DEHYDRATION) 08/2019 REVIEW OF SYSTEMS CONSTITUTIONAL: ANY RECENT FEVER OR ILLNESS NO . CHILLS NO . GASTROENTEROLOGY: BOWEL INCONTINENCE NO . ANY NEW CHANGE IN BOWEL CONTROL? NO . ABDOMINAL PAIN NO . CONSTIPATION NO . GENITOURINARY: ANY NEW CHANGE IN BLADDER CONTROL? NO . IS THERE A CHANCE YOU COULD BE ? NO . URINARY INCONTINENCE NO . CARDIOLOGY: CHEST PRESSURE NO . CHEST PAIN NO . RESPIRATORY: COUGH NO . SHORTNESS OF BREATH NO . , DESCRIBING PERSISTENT INNER THIGH CRAMPING PAIN OVER THE PAST MONTH. DESCRIBING PERSISTENT NAUSEA AND DIARRHEA WELL GENERALIZED MALAISE. VITAL SIGNS WT 230.6 LBS, HT 62", BMI 42.17 INDEX, BP 141/63 MM HG, HR 87 /MIN, RR 20 /MIN, TEMP 97.9 F, OXYGEN SAT % 93%, SAFE IN ENV? (Y/N) YES, NA INITIALS SC 14:16[employer]. EXAMINATION GENERAL EXAMINATION: GENERALAWAKE,ALERT ,PLEASANT . PSYCHAFFECT NORMAL . LUNGS:LUNG KRISHNAN ARE CLEAR TO AUSCULTATION BILATERALLY. GOOD MOVEMENT OF AIR . HEART:S1, S2 IN A REGULAR RATE AND RHYTHM. NO SIGNIFICANT MURMURS, RUBS OR GALLOPS NOTED . ASSESSMENTS LEFT KNEE PAIN - M25.562 (PRIMARY) CHRONIC PRESCRIPTION OPIATE USE - Z79.891 TREATMENT LEFT KNEE PAIN REFILL AMRIX CAPSULE EXTENDED RELEASE 24 HOUR, 15 MG, 2 CAPSULE, ORALLY, ONCE DAILY, 30 DAYS, 60, REFILLS 5 CONTINUE CYMBALTA CAPSULE DELAYED RELEASE PARTICLES, 60 MG, 1 CAP, ORALLY, ONCE DAILY REFILL HYDROMORPHONE HCL TABLET, 2 MG, 1 TAB, ORALLY, QHS MDD1, 30 DAYS, 30, REFILLS 0, NOTES: DOSAGE CHANGE REFILL OXYCODONE HCL ER TABLET ER 12 HOUR ABUSE-DETERRENT, 15 MG, 1 TABLET, ORALLY, BEFORE BEDTIMEMDD1, 30 DAYS, 30, REFILLS 0, NOTES: FREQUENCY CHANGE NOTES: DISCUSSED CONTINUED EFFORTS AT REDUCING OPIOID USE. PATIENT WILL CONTINUE OXYCODONE EXTENDED RELEASE 15 MG 1 PILL DAILY. CONTINUE AMRIX. 2 CAPSULES AT NIGHT. REDUCE DILAUDID 2 MG TO ONE TABLET NEEDED PERIODICALLY FOR SEVERE PAIN, #30 TABLETS SHOULD LAST 30 DAYS. , ISTOP REGISTRY REVIEWED AND DEMONSTRATES COMPLLIANCE.BRINGS IN MEDICATIONS WHICH IS APPROPRIATE FOR WHAT WAS DISPENSED. RECENT URINE TOXICOLOGY REVIEWED. NO UNAUTHORIZED MEDICATIONS. NO ILLICIT SUBSTANCES AND PRESCRIBED MEDICATIONS WERE PRESENT. , RISKS OF NARCOTIC/OPIOD MEDICATIONS INCLUDES BUT IS NOT LIMITED TO RISK OF DEPENDANCE/DEVELOPMENT OF ADDICTION, MOOD DISTURBANCE AND DEPRESSION, OSTEOPOROSIS, HORMONAL AND LABIDAL CHANGES, RESPIRATORY DEPRESSION AND . PATIENT IS ADVISED NOT TO DRIVE OR DRINK ALCOHOL WHILE ON THESE MEDICATIONS. PROCEDURES PN WORKMANS' COMP OPINION IN YOUR OPINION, WAS THE INCIDENT THAT THE PATIENT DESCRIBED THE COMPETENT MEDICAL CAUSE OF THIS INJURY/ILLNESS? YES ARE THE PATIENT'S COMPLAINTS CONSISTENT WITH HIS/HER HISTORY OF THE INJURY/ILLNESS? YES IS THE PATIENT'S HISTORY OF THE INJURY/ILLNESS CONSISTENT WITH YOUR OBJECTIVE FINDING? YES WHAT IS THE PERCENTAGE OF TEMPORARY IMPAIRMENT? MODERATE TO MARKED = 66.7% IS THE PATIENT WORKING? YES DOCTOR ON SITE: HAYDEN JENSEN MD DISPOSITION & COMMUNICATION FOLLOW UP 6 WEEKSWORKMEN'S COMP/MED MANAGEMENT/TOXICOLOGY (REASON: LEFT KNEE PAIN) ELECTRONICALLY SIGNED BY DEIDRE MERCEDES ON 01/18/2020 AT 03:25 PM EDT DISCLAIMER : THIS IS A VISIT SUMMARY EXTRACTED FROM THE [employer] CHART. IT IS NOT A COPY OF THE [employer] PROGRESS NOTE. KAYED
== END ==
LOC: M PAIN 14:15
PROVIDERS: ATTEND Nurse Practitioner Family
DX: M25.562 Pain in left knee (principal); Z79.891 Long term (current) use of opiate analgesic

== ENCOUNTER → 2020-05-15 | Outpatient (CLI) | payer OTHER, MEDICARE, BC ==
[~2020-05-15] MED LIST changes: +AMLO1TAB24 PO; -AMLO5TAB6 PO
--- NOTE | 2020-05-18 13:19 | ECWPNPC ---
PATIENT NAME: SARAVANAN DAUGHERTY : 1950 GENDER: FEMALE VISIT DATE: 05/15/2020 DISCHARGE DATE: 05/15/20 155 VISIT LOCKED DATE TIME: PHYSICIAN: JULIANA COOLEY PHYSICIAN PAGER NO: ACTIVE RESOURCE: JULIANA COOLEY REASON FOR APPOINTMENT 1. LEFT KNEE HISTORY OF PRESENT ILLNESS DEPRESSION SCREENING: PHQ-2 (2015 EDITION) LITTLE INTEREST OR PLEASURE IN DOING THINGS?SEVERAL DAYS FEELING DOWN, DEPRESSED, OR HOPELESS?NEARLY EVERY DAY TOTAL SCORE4 PAIN CENTER INTAKE QUESTIONS: DO YOU HAVE A HISTORY OF MRSA? :NO DO YOU TAKE A BLOOD THINNERS? :NO DO YOU HAVE ANY BLEEDING DISORDERS? :NO ANY NEW NUMBNESS OR WEAKNESS IN YOUR LEGS OR ARMS? :NO ANY PACEMAKER,DEFIBRILLATOR, OR DORSAL COLUMN STIMULATOR? :NO DO YOU HAVE ANY RASHES OR OPEN SORES? :NO ARE YOU ALLERGIC TO IV DYE? :NO ARE YOU DIABETIC? :NO ANY NEW PROBLEMS WITH YOUR MEDICATIONS? :NO HAVE YOU RECEIVED A VACCINE IN THE PAST 30 DAYS? :NO DO YOU PLAN TO RECEIVE A VACCINE IN THE NEXT 21 DAYS? :NO DO YOU NEED ANY PRESCRIPTION? :NO DO YOU TAKE ANY IMMUNOSUPPRESSIVE MEDICATIONS? :NO IS THERE A CHANCE YOU COULD BE ? :NO ARE YOU BREAST FEEDING? :NO GENERAL: HERE FOR FOLLOW-UP OF A WORK RELATED INJURY. SUFFERS FROM CHRONIC LEFT KNEE PAIN. MEDICATION HAS BEEN HELPFUL WITHOUT ADVERSE REACTIONS PER PATIENT.WAS UNABLE TO TOLERATE HER ATTEMPT AT WORKING DUE TO SEVERE KNEE PAIN AND LEFT LEG SWELLING.DISCUSSED TREATMENT PLAN. - -. FALL RISK SCREENING: SCREENING :ONE FALL WITH INJURY IN THE PAST YEAR PAIN SCREENING: PATIENT HAS A COMPLAINT OF ACUTE OR CHRONIC PAIN :YES LOCATION OF PAIN:KNEES INTENSITY OF PAIN (SCALE OF 1 TO 10):4 WHAT DOES YOUR PAIN FEEL LIKE:ACHING, CONTINOUS, THROBBING, SORE PAIN IS INCREASED BY:ACTIVITIES PAIN IS DECREASED BY:OTHERS A PILLOW IN BED TO ELEVATE NURSING NOTE: -. CURRENT MEDICATIONS TAKING RANITIDINE HCL 150 MG CAPSULE 1 CAPSULE ORALLY TWICE A DAY TAKING METFORMIN HCL 1000 MG TABLET 1 TABLET WITH MEALS ORALLY TWICE A DAY TAKING PROBIOTIC - CAPSULE 1 CAP ORALLY DAILY TAKING HYDROXYZINE HCL 50 MG TABLET 1 TABLET NEEDED ORALLY QID TAKING BENZONATATE 100 MG CAPSULE 1 CAP ORALLY Q 8 HOURS X 10 DAYS TAKING ARNICA - TINCTURE DIRECTED TOPICALLY GEL OTC BID FOR KNEE PAIN TAKING ONETOUCH VERIO - STRIP 1 STRIP IN VITRO DAILY TAKING ONETOUCH VERIO - STRIP 1 LANCET IN VITRO DAILY TAKING BENADRYL ALLERGY 25 MG TABLET 1 TABLET NEEDED ORALLY EVERY 8 HRS TAKING ZOFRAN 4 MG TABLET 1 TABLET ORALLY ONCE A DAY TAKING ALBUTEROL SULFATE HFA 108 (90 BASE) MCG/ACT AEROSOL SOLUTION 1 PUFF INHALATION EVERY 4 HOURS NEEDED TAKING ADVAIR DISKUS 250-50 MCG/DOSE AEROSOL POWDER BREATH ACTIVATED 1 PUFF INHALATION DAILY TAKING IPRATROPIUM-ALBUTEROL 0.5-2.5 (3) MG/3ML SOLUTION 3 ML INHALATION BID PRN, NOTES: BID PRN TAKING VOLTAREN 1 % GEL 1GRAM TRANSDERMAL EVERY 6 HOURS NEEDED TAKING PROMETHAZINE HCL 12.5 MG TABLET 1 TABLET NEEDED ORALLY DAILY TAKING AMRIX 15 MG CAPSULE EXTENDED RELEASE 24 HOUR 2 CAPSULE ORALLY ONCE DAILY TAKING CYMBALTA 60 MG CAPSULE DELAYED RELEASE PARTICLES 1 CAP ORALLY ONCE DAILY TAKING ROPINIROLE HCL 1 MG TABLET 2 TABLETS ORALLY BID TAKING VENTOLIN HFA 108 (90 BASE) MCG/ACT AEROSOL SOLUTION 2 PUFFS NEEDED INHALATION EVERY 4 HOURS NEEDED PARISH, NOTES: FREQUENCY CHANGE TAKING NEBULIZER/TUBING/MOUTHPIECE DIRECTED _ DX: J44.1, DAILY USE TAKING OXYCODONE HCL ER 15 MG TABLET ER 12 HOUR ABUSE-DETERRENT 1 TABLET ORALLY BEFORE BEDTIMEMDD1, NOTES: FREQUENCY CHANGE TAKING HYDROMORPHONE HCL 2 MG TABLET 1 TAB ORALLY QHS MDD1, NOTES: DOSAGE CHANGE NOT-TAKING AMLODIPINE BESYLATE 5 MG TABLET 1 TABLET ORALLY BID NOT-TAKING LEVOTHYROXINE SODIUM 25 MCG CAPSULE 1 CAPSULE ON AN EMPTY STOMACH IN THE MORNING ORALLY ONCE A DAY NOT-TAKING HYDROXYZINE PAMOATE 25 MG CAPSULE 1 CAPSULE NEEDED ORALLY DAILY PRN NOT-TAKING COMPAZINE 25MG 1 TAB ORALLY Q 8HRS. FOR NAUSEA NEEDED NOT-TAKING PREDNISONE 5 MG TABLET DELAYED RELEASE 2 TABLETS X 5D, THEN 1 TABLET 5DAYS ORALLY ONCE A DAY, NOTES: 2 WEEKS LEFT NOT-TAKING PREDNISONE 5 MG TABLET 2 TABLETS X5D, 1 TABLET X5DAYS ORALLY ONCE A DAY NOT-TAKING PREDNISONE 10 MG TABLET DIRECTED ORALLY 2 TABS BID X5 DAYS, 1 TAB BID X5 DAYS NOT-TAKING NYSTATIN [id number] UNIT/GM POWDER 1 APPLICATION TO AFFECTED AREA EXTERNALLY TWICE A DAY, NOTES: PRN NOT-TAKING BENZONATATE 100 MG CAPSULE 1 CAPSULE NEEDED ORALLY THREE TIMES A DAY NOT-TAKING DOXYCYCLINE HYCLATE 100 MG TABLET DELAYED RELEASE 1 TABLET ORALLY BID X 7 DAYS NOT-TAKING AMLODIPINE BESYLATE 5 MG TABLET 1 TABLET ORALLY ONCE A DAY MEDICATION LIST REVIEWED AND RECONCILED WITH THE PATIENT PAST MEDICAL HISTORY 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 JALLOH T2DM HYPOTHYROIDISM 10 CM RETROCARDIAC HIATAL HERNIA SJOGREN SYNDROME RESTLESS LEGS ARNEL MIGRAINES ACUTE KIDNEY FAILUTRE(DEHYDRATION) CHF ACUTE BRONCHITIS MORBID OBESITY HIATAL HERNIA ACUTE RESPIRATORY FAILURE WITH HYPOXEMIA HYPERTENSION ALLERGIES NICKEL: SWELLING - ALLERGY STATINS (FOR ALLERGY USE ONLY): INCREASED LFTS, MUSCULAR PAIN - ALLERGY NSAIDS: ABDOMINAL PAIN, GI ULCER - ALLERGY LEVAQUIN: FACIAL SWELLING - ALLERGY LYRICA: ITCHING - ALLERGY LACTOSE: DIARRHEA, ABDOMINAL PAIN - ALLERGY LATEX (FOR ALLERGY USE ONLY): RASH - ALLERGY SURGICAL HISTORY TONSILLECTOMY GANGLION CYST WITH CARPAL RELEASE, LEFT WRIST SECTION X2 APPENDECTOMY LEFT ARTHROSCOPY LEFT KNEE REPLACEMENT X2 2008, 2013 CATARACTS FAMILY HISTORY FATHER: , [place], DIABETES, DIAGNOSED WITH HYPERTENSION, UNSPECIFIED HEART DISEASE, DIABETES MOTHER: , CANCER, OTHER MALIGNANT NEOPLASM OF UNSPECIFIED SITE SIBLINGS: ALIVE, HEART DISEASE, CANCER SON(S): ALIVE DAUGHTER(S): ALIVE, LUPUS 2 BROTHER(S) - HEALTHY. 1 SON(S) , 1 DAUGHTER(S) - HEALTHY. MOM-ORAL CA\\\\N. SOCIAL HISTORY GENERAL: TOBACCO USE ARE YOU A:FORMER SMOKER HOW LONG HAS IT BEEN SINCE YOU LAST SMOKED?5-10 YEARS LATEX QUESTIONNAIRE LATEX ALLERGY : HAVE YOU EVER DEVELOPED ANY TYPE OF REACTION AFTER HANDLING LATEX PRODUCTS SUCH RUBBER GLOVES, CONDOMS, DIAPHRAGMS, BALLOONS, SOCKS, OR UNDERWEAR?YES SEE ALLERGIES, RASH, BURNING LATEX ALLERGY : HAVE YOU EVER DEVELOPED ANY TYPE OF REACTION DURING OR AFTER DENTAL APPOINTMENT, VAGINAL/RECTAL EXAMINATION, SURGICAL PROCEDURE, OR ANY OTHER EXPOSURE?NO DATE ASKED : 01/17/2020 LATEX RISK : HAVE YOU EVER HAD ANY DIFFICULTY BREATHING OR HIVES AFTER EATING OR HANDLING ANY FRUITS, OR VEGETABLES; SUCH KIWI, BANANAS, STONE FRUITS, OR CHESTNUTSNO LATEX RISK : DO YOU HAVE A PREVIOUS PERSONAL HISTORY OF MORE THAN NINE SURGERIES, SPINA BIFIDA, OR REPEATED CATHERIZATIONS? NO LATEX RISK : ARE YOU FREQUENTLY EXPOSED TO LATEX PRODUCTS IN YOUR OCCUPATION?NO BMI CARE GOAL FOLLOW-UP ABOVE NORMAL BMI FOLLOW-UPLIFESTYLE EDUCATION REGARDING DIET ALCOHOL SCREENING DID YOU HAVE A DRINK CONTAINING ALCOHOL IN THE PAST YEAR?NO POINTS0 INTERPRETATIONNEGATIVE RECREATIONAL DRUG USE DRUG USE?NO CAFFEINE CAFFEINE USE?YES SEXUAL HX HAD SEX IN THE LAST 12 MONTHS (VAGINAL, ORAL, OR ANAL)?YES WITHMEN ONLY HIV / HEP-C SCREENING HIV TEST OFFERED TO PATIENT:YES DATE OFFERED:03/26/2017 TEST ACCEPTED:NO HEP-C TEST OFFERED TO PATIENT:YES DATE OFFERED:03/26/2017 REASON:PATIENT DECLINED ALREADY TESTED TEST ACCEPTED:NO REASON:PATIENT DECLINED JAINISM [id number] NONE LANGUAGE LANGUAGES SPOKEN:[place]IZ[place] OF [place] LEARNING BARRIERS / SPECIAL NEEDS CHANGE FROM LAST VISIT?NO BARRIERS TO LEARNING?NO HEARING IMPAIRED?NO VISION IMPAIRED?YES COGNITIVELY IMPAIRED?NO :CORRECTIVE LENSES READINESS TO LEARN?YES LEARNING PREFERENCES?NO LEARNING CAPABILITIES PRESENT?YES EMOTIONAL BARRIERS?NO SPECIAL DEVICES?NO FLUID DESIGNER NEEDED?NO DOMESTIC VIOLENCE DO YOU FEEL SAFE IN YOUR ENVIRONMENT?YES OCCUPATION: UNEMPLOYED, UNEMPLOYED. DIET: REGULAR, REGULAR. EXERCISE: NO REGULAR EXERCISE, NO REGULAR EXERCISE. MARITAL STATUS: , . OTHERS AT HOME: SPOUSE, SPOUSE. NEW PATIENT PAIN DIARY TODAY'S VISITNOTES PATIENT DESCRIBES PAIN :IT COMES AND GOES, THROBBING 12/01/19 FROM 0-10, WHAT LEVEL IS YOUR PAIN TODAY?6 PRECIPITATING FACTORS SITTING, GOING FROM SITTING TO STANDING POSITION ALLEVIATING FACTORS ELEVATING LEGS IMPACT ON FUNCTION YES PAIN CLINIC PFS, CLERGY, PUBLIC HEALTH REFERRALS PFS REFERRAL NEEDED?NO CLERGY REFERRAL NEEDED?NO PUBLIC HEALTH REFERRAL NEEDED?NO WAS THE PROVIDER NOTIFIED OF ANY PERTINENT INFO?YES N/A HAS THE PATIENT BEEN EDUCATED REGARDING HIS/HER PLAN OF CARE?YES HAS THE PATIENT BEEN EDUCATED REGARDING PAIN, THE RISK FOR PAIN, THE IMPORTANCE OF EFFECTIVE PAIN MANAGEMENT, AND THE PAIN ASSESSMENT PROCESS?YES ADVANCE DIRECTIVE ADVANCE DIRECTIVE DISCUSSED WITH PATIENT:YES HEALTH CARE PROXY [facility]/MAJOR DIAGNOSTIC PROCEDURE SURGERIES COPD 08/13/2016 PNEUMONIA/RESP FAILURE 2015 COPD, ACUTE KIDNEY FAILURE(DEHYDRATION) 08/2019 REVIEW OF SYSTEMS CONSTITUTIONAL: ANY RECENT FEVER NO . CHILLS NO . GASTROENTEROLOGY: BOWEL INCONTINENCE NO . ANY NEW CHANGE IN BOWEL CONTROL? NO . HISTORY OF UNUSUAL ABDOMINAL PAIN OR CRAMPING NOT MENTIONED NO . CONSTIPATION NO . GENITOURINARY: ANY NEW CHANGE IN BLADDER CONTROL? NO . IS THERE A CHANCE YOU COULD BE ? NO . URINARY INCONTINENCE NO . CARDIOLOGY: NEW CHEST PRESSURE NO . HISTORY OF CHEST PAIN,IRREGULAR HEART BEAT NOT MENTIONED NO . RESPIRATORY: COUGH NO . SHORTNESS OF BREATH NO . 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 VITAL SIGNS WT 240.8 LBS, HT 62", BMI 44.04 INDEX, BP 132/64 MM HG, HR 87 /MIN, RR 20 /MIN, TEMP 98.0 F, OXYGEN SAT % 91%, NA INITIALS AW 1455. EXAMINATION GENERAL EXAMINATION: GENERALAWAKE,ALERT ,PLEASANT . PSYCHAFFECT NORMAL . LUNGS:LUNG KRISHNAN ARE DIMINISHED WITH WHEEZING.. HEART:S1, S2 IN A REGULAR RATE AND RHYTHM. NO SIGNIFICANT MURMURS, RUBS OR GALLOPS NOTED . ASSESSMENTS LEFT KNEE PAIN - M25.562 (PRIMARY) CHRONIC PRESCRIPTION OPIATE USE - Z79.891 TREATMENT LEFT KNEE PAIN REFILL HYDROMORPHONE HCL TABLET, 2 MG, 1 TAB, ORALLY, QHS MDD1, 30 DAYS, 30, REFILLS 0, NOTES: DOSAGE CHANGE REFILL OXYCODONE HCL ER TABLET ER 12 HOUR ABUSE-DETERRENT, 15 MG, 1 TABLET, ORALLY, BEFORE BEDTIMEMDD1, 30 DAYS, 30, REFILLS 0, NOTES: FREQUENCY CHANGE NOTES: ISTOP REGISTRY REVIEWED AND DEMONSTRATES COMPLLIANORAL SWAB FOR TOXICOLOGY TODAY NO UNAUTHORIZED MEDICATIONS. NO ILLICIT SUBSTANCES AND PRESCRIBED MEDICATIONS WERE PRESENT. , RISKS OF NARCOTIC/OPIOD MEDICATIONS INCLUDES BUT IS NOT LIMITED TO RISK OF DEPENDANCE/DEVELOPMENT OF ADDICTION, MOOD DISTURBANCE AND DEPRESSION, OSTEOPOROSIS, HORMONAL AND LABIDAL CHANGES, RESPIRATORY DEPRESSION AND . PATIENT IS ADVISED NOT TO DRIVE OR DRINK ALCOHOL WHILE ON THESE MEDICATIONS. PROCEDURES PN WORKMANS' COMP OPINION IN YOUR OPINION, WAS THE INCIDENT THAT THE PATIENT DESCRIBED THE COMPETENT MEDICAL CAUSE OF THIS INJURY/ILLNESS? YES ARE THE PATIENT'S COMPLAINTS CONSISTENT WITH HIS/HER HISTORY OF THE INJURY/ILLNESS? YES IS THE PATIENT'S HISTORY OF THE INJURY/ILLNESS CONSISTENT WITH YOUR OBJECTIVE FINDING? YES WHAT IS THE PERCENTAGE OF TEMPORARY IMPAIRMENT? MODERATE TO MARKED = 66.7% IS THE PATIENT WORKING? NO DOCTOR ON SITE: HAYDEN JENSEN MD PROCEDURE CODES FA211 ESTABILISHED PATIENT [facility] CHARGE DISPOSITION & COMMUNICATION FOLLOW UP 3 MONTHS (REASON: LEFT KNEE/MED MGMNT/W/C) ELECTRONICALLY SIGNED BY DEIDRE MERCEDES ON 05/18/2020 AT 01:16 PM EDT DISCLAIMER : THIS IS A VISIT SUMMARY EXTRACTED FROM THE [employer] CHART. IT IS NOT A COPY OF THE [employer] PROGRESS NOTE. KAYED
== END ==
LOC: M PAIN 14:30
PROVIDERS: ATTEND Nurse Practitioner Family
DX: M25.562 Pain in left knee (principal); J44.9 Chronic obstructive pulmonary disease, unspecified; E03.9 Hypothyroidism, unspecified; E11.9 Type 2 diabetes mellitus without complications; G47.33 Obstructive sleep apnea (adult) (pediatric); E66.01 Morbid (severe) obesity due to excess calories; K44.9 Diaphragmatic hernia without obstruction or gangrene; Z79.891 Long term (current) use of opiate analgesic; Z68.41 Body mass index [BMI] 40.0-44.9, adult; Z79.84 Long term (current) use of oral hypoglycemic drugs; Z79.899 Other long term (current) drug therapy; Z88.6 Allergy status to analgesic agent; Z88.8 Allergy status to other drugs, medicaments and biological substances; Z91.040 Latex allergy status

== ENCOUNTER → 2020-05-19 | Outpatient (CLI) | payer MEDICARE, BC ==
[2020-05-19 13:08] LABS: CREATININE FOR GFR 1.35 MG/DL (0.55-1.30)
[2020-05-19 13:09] LABS: ALBUMIN 3.2 GM/DL (3.2-5.2); CALCIUM LEVEL 8.8 MG/DL (8.8-10.2); GLOMERULAR FILTRATION RATE 41.6 (>45); MAGNESIUM LEVEL 1.4 MG/DL (1.8-2.4); PHOSPHORUS LEVEL 3.9 MG/DL (2.5-4.9); POTASSIUM SERUM 4.5 MEQ/L (3.5-5.1)
== END ==
LOC: M LAB 11:56
PROVIDERS: ATTEND Internal Medicine Cardiovascular Disease
DX: Z01.812 Encounter for preprocedural laboratory examination (principal); Z20.828 Contact with and (suspected) exposure to other viral communicable diseases; I50.812 Chronic right heart failure
CPT/HCPCS: 36415; 80069; 83735; 83880; C9803; U0003

== ENCOUNTER → 2020-05-19 | Outpatient (CLI) | payer MEDICARE, BC | LOC: M LABSMTC 11:30 | PROVIDERS: ATTEND Anesthesiology | DX: Z01.812 Encounter for preprocedural laboratory examination (principal); Z20.828 Contact with and (suspected) exposure to other viral communicable diseases ==

== ENCOUNTER 2020-05-24 11:11 | Day surgery (SDC) | payer MEDICARE, BC ==
[~2020-05-24] VITALS: Ht 165.1 cm; Wt 105.7 kg
[~2020-05-24 11:11] MED LIST changes: +NS 1,000 ML IV ONE
[2020-05-24] MEDS ORDERED: LEVALBUTEROL 1.25 MG/0.5 ML CONCENTRATE NEB As Ordered ONE (11:57)
[2020-05-24] MEDS ORDERED: LEVALBUTEROL 1.25 MG/0.5 ML CONCENTRATE NEB INH ONE (12:15)
[2020-05-24] MEDS ORDERED: LIDOCAINE 2% 100MG/5ML SDV (FOR ANES.) As Ordered ONE (12:24)
[2020-05-24] MEDS ORDERED: propofoL 200 MG/20 ML VIAL As Ordered ONE ×2 (12:24→12:38)
--- NOTE | 2020-05-24 12:43 | ROOR ---
Patient Name: Bessy Miller Procedure Date: 05/24/2020 12:23 PM Date of : 1950 Age: 69 Room: [facility] Gender: Female Note Status: Finalized Procedure: Upper GI endoscopy Indications: Suspected esophageal reflux, Hiatal hernia Providers: Kevin Thayer Jr, MD Referring MD: Loraine SHAFFER Requesting Provider: Medicines: Propofol per Anesthesia Complications: No immediate complications. Procedure: Pre-Anesthesia Assessment: - Prior to the procedure, a History and Physical was performed, and patient medications and allergies were reviewed. The patient is competent. The risks and benefits of the procedure and the sedation options and risks were discussed with the patient. All questions were answered and informed consent was obtained. Patient identification and proposed procedure were verified by the physician and the nurse in the pre-procedure area and in the procedure room. Mental Status Examination: alert and oriented. Airway Examination: normal oropharyngeal airway and neck mobility. Respiratory Examination: clear to auscultation. CV Examination: normal. ASA Grade Assessment: III - A patient with severe systemic disease. After reviewing the risks and benefits, the patient was deemed in satisfactory condition to undergo the procedure. The anesthesia plan was to use moderate sedation / analgesia (conscious sedation). Immediately prior to administration of medications, the patient was re-assessed for adequacy to receive sedatives. The heart rate, respiratory rate, oxygen saturations, blood pressure, adequacy of pulmonary ventilation, and response to care were monitored throughout the procedure. The physical status of the patient was re-assessed after the procedure. The Endoscope was introduced through the mouth, and advanced to the second part of duodenum. The upper GI endoscopy was accomplished without difficulty. The patient tolerated the procedure poorly due to the patient's body habitus and the patient's respiratory instability. Findings: The upper third of the esophagus, middle third of the esophagus and lower third of the esophagus were normal. A large hiatal hernia was present. Scattered moderate inflammation characterized by congestion (edema), friability and granularity was found in the cardia and in the gastric antrum. Biopsies were taken with a cold forceps for histology. The Z-line was regular and was found 30 cm from the incisors. The duodenal bulb, first portion of the duodenum and second portion of the duodenum were normal. Impression: - Normal upper third of esophagus, middle third of esophagus and lower third of esophagus. - Large hiatal hernia. - Gastritis. Biopsied. - Z-line regular, 30 cm from the incisors. - Normal duodenal bulb, first portion of the duodenum and second portion of the duodenum. Recommendation: - Discharge patient to home (ambulatory). - Return to my office in 2 weeks. Kevin Thayer MD Kevin Thayer Jr, MD 05/24/2020 12:42:57 PM Electronically signed by Kevin Thayer Jr, MD Number of Addenda: 0 Note Initiated On: 05/24/2020 12:23 PM Estimated Blood Loss: Estimated blood loss: none.
[2020-05-24 13:05] VITALS: BP 128/64
== END 2020-05-24 13:10 | disposition home or self-care (01) ==
LOC: M OPP 11:11
PROVIDERS: ATTEND Surgery
DX: K44.9 Diaphragmatic hernia without obstruction or gangrene (principal); K29.70 Gastritis, unspecified, without bleeding; R10.9 Unspecified abdominal pain; I51.9 Heart disease, unspecified; Z79.84 Long term (current) use of oral hypoglycemic drugs; Z79.899 Other long term (current) drug therapy; Z91.040 Latex allergy status; Z91.048 Other nonmedicinal substance allergy status

== ENCOUNTER → 2020-06-05 | Outpatient (REF) | payer MEDICARE ==
[~2020-06-05] MED LIST changes: -NS 1,000 ML IV ONE
== END ==
LOC: M SFHCWAGY 13:58
PROVIDERS: ATTEND Nurse Practitioner Family
DX: Z12.4 Encounter for screening for malignant neoplasm of cervix (principal); N95.2 Postmenopausal atrophic vaginitis

== ENCOUNTER → 2020-06-05 | Outpatient (CLI) | payer MEDICARE ==
--- NOTE | 2020-06-05 12:23 | REPMRS ---
Patient History The patient states she had a clinical breast exam in 05/2020. Patient is postmenopausal. Family history of breast cancer at age 50 in maternal aunt, prostate cancer at age 64 in maternal grandfather. No Hormone Replacement Therapy 3D TOMOSYNTHESIS WAS PERFORMED. [facility] lifetime risk for breast cancer is 9.3%. Volpara breast density a. Digital Woman Screen Mammo: June 05, 2020 - Exam #: [id number] Bilateral CC and MLO view(s) were taken. Technologist: Kelli Hawthorne, Technologist FINDINGS: There are scattered fibroglandular densities. There has been no change in the appearance of the mammogram from the prior studies. There is a mild amount of residual fibroglandular tissue which is fairly symmetric. There is no interval development of dominant mass, architectural distortion, or clustered microcalcification suggestive of malignancy. Assessment: BI-RADS/ACR category 1 mammogram. Negative Mammogram. Recommendation Routine screening mammogram in 1 year (for women over age 40). This mammogram was interpreted with the aid of an FDA-approved computer-aided dectection system. Electronically Signed By: Paul Rodgers MD 06/05/20 [id number]
== END ==
LOC: M WHC 11:04
PROVIDERS: ATTEND Nurse Practitioner Family
DX: Z01.419 Encounter for gynecological examination (general) (routine) without abnormal findings (principal); Z12.31 Encounter for screening mammogram for malignant neoplasm of breast; Z78.0 Asymptomatic menopausal state
CPT/HCPCS: 77063; 77067; G0101; G0123

== ENCOUNTER 2020-08-29 14:03 | Emergency (ER) | payer MEDICARE, OTHER ==
[~2020-08-29] VITALS: Ht 160 cm; Wt 109.8 kg
--- OUTSIDE RECORDS SUMMARY | 2020-08-29 14:09 | CCD ---
Author Author [facility] Organization [facility] Address Unknown Phone Unavailable Care Team Providers Care Tactical/Mobile Watch Officer Name Role Phone Jackeline Germain Unavailable PROBLEMS Type Condition ICD9-CM Code [id number] Code Onset Dates Condition S tatus SNOMED Code Notes Problem long-term current use of opiate analgesic Z79.891 Active 718566396 Problem Obesity, unspecified obesity severity, unspecified obe sity type E66.9 Active 655580930 Problem Left knee pain M25.562 Active 10014663 Problem Anxiety F41.9 Active 09229722 Problem Restless leg syndrome G25.81 Active 65630125 Problem COPD exacerbation J44.1 Active 420658248 Problem Hypothyroidism, unspecified type E03.9 Active 06320723 Problem Migraine without status migr ainosus, not intractable, unspecified migraine type G43.909 Active 27903457 Problem Asthma exacerbation J45.901 Active 644778465 Problem Other chronic pain G89.29 Active 93593619 Problem Sleep apnea, unspecified type G47.30 Active 73 332721 Problem Type 2 diabetes mellitus wit hout complication, unspecified watermaster insulin use status E11.9 Active 769712860 Problem Uncomplicated asthma, unspecified asthma severity J45.909 Active 129725115 Problem ARNEL (obstructive sleep apnea) G47.33 Active 78 017375 Problem Chronic prescription opiate use Z79.891 Active 202400163 Problem Morbid (severe) obesity due to excess calories E66 .01 Active 105225244 Problem Body mass index (BMI) of 45.0-49.9 in adult Z68.42 Active 547361704 Problem Chronic obstructive pulmonary disease with acute exacerbat ion J44.1 Active 545643692 Problem Obesity (BMI 30-39.9) E66.9 Active 151019223 Problem Breast cancer screening by mammogram Z12.31 Act basilio 019353315 Problem Post-traumatic osteoarthritis of left knee M17.32 Active 925255627 Problem COPD (chronic obstructive pulmonary disease) wit h acute bronchitis J44.0 Active 643493115859671 Problem Lipid screening Z13.220 Active 532801309 Problem Chronic sinusitis, unspecified J32.9 Active 3 5059493 Problem Chronic obstructive pulmonary disease, unspecified COPD ty pe J44.9 Active 81672650 Problem Moderate persistent asthma with acute exacerbation J45.41 Active 085915363699426 Problem Cervical cancer screening Z12.4 Active 501793 001 Problem Encounter for immunization Z23 Active 23201 8001 Problem Essential hypertension I10 Active 63384285 ALLERGIES Allergen (clinical drug ingredient) Drug/Non Drug Allergy do cumented on EMR Reaction Allergy Type Onset Date Status Latex (for allergy use only) Rash Drug Allergy Active lactose diarrhea, abdominal pain Non Drug Allergy Active pregabalin Lyrica([facility] Code:[address]-17) itching Drug Allergy Active Levaquin facial swelling Drug Allergy Active Nickel swelling Drug Allergy Active Statins (for Allergy Use Only) increased LFTS, muscular pa in Drug Allergy Active NSAIDS abdominal pain, GI ulcer Non Drug Allergy Active ENCOUNTERS from 1950 to 2020-08-15 Encounter Location Date Provider Diagnosis [facility] [address] [place] [id number] Aug, Jackeline Germain IMMUNIZATIONS Vaccine Route Administration Date Status Influenza (18 yrs & older) Flublok IM Intramuscular Jun 17, 2018 Administered Rocephin 1gm (Ceftriaxone) IM Intramuscular Aug 25, 2016 Admi nistered Lidocaine 1% IM Intramuscular Aug 25, 2016 Administered Depo-Medrol 40mg (Methylpredisolone Acetate) IM Intramuscular Ja 2016 Administered Pneumococcal Adult 0.5mL (Pneumovax 23) IM Intramuscular Jun 17, 2018 Administered TDAP 0.5mL (Boostrix) IM Intramuscular December 01, 2019 Administe red Pneumococcal 0.5mL (Prevnar 13) IM Intramuscular December 01, 2019 Administered MMR 0.5mL SC Subcutaneous December 01, 2019 Administered Influenza (6mo & up) Fluzone IM Intramuscular Jun 26, 2016 Ad ministered SOCIAL HISTORY Tobacco Use: Social History Observation Description Date Details (start date - stop date) Former Smoker Sex Assigned At : Social History Observation Description Sex Assigned At Unknown Audit Question Answer Notes Total Score: 1 Interpretation: Alcohol Education Language: Question Answer Notes Languages spoken: Indonesian Orthodoxy: Question Answer Notes Orthodoxy 33 None Sexual Hx: Question Answer Notes Had sex in the last 12 months (vaginal, oral, or anal)? Yes with Men only Drug and Alcohol Question Answer Notes Total Score: 0 Interpretation: No problems reported Alcohol Screening: Question Answer Notes Did you have a drink containing alcohol in the past year? No Points 0 Interpretation Negative BMI Care Goal Follow-Up Question Answer Notes Above Normal BMI Follow-Up Lifestyle education regarding t Tobacco Use: Question Answer Notes Are you a: former smoker How long has it been since you last smoked? 5-10 years REASON FOR REFERRAL No Information VITAL SIGNS No information MEDICATIONS Medication SIG (Take, Route, Frequency, Duration) Notes Start Da te End Date Status HydrOXYzine Pamoate 25 MG 1 capsule as needed Orally Daily prn f or 30 day(s) Active Benzonatate 100 MG 1 cap Orally q 8 hours x 10 days Aug Active Hydromorphone HCl 2 MG 1 tab Orally qhs for 30 Days Jul Active Advair Diskus 250-50 MCG/DOSE 1 puff Inhalation Daily for 30 Days Active Nystatin 242393 UNIT/GM 1 application Externally und er breast and groin Twice a day for 14 days May, Active Ipratropium-Albuterol 0.5-2.5 (3) MG/3ML 3 ml Inhalation BID prn Active Promethazine HCl 12.5 MG 1 tablet as needed Orally Daily for 30 day(s) Nov, Active OneTouch Verio - 1 strip In Vitro Daily for 90 day(s) Active Ventolin HFA 108 (90 Base) MCG/ACT 2 puffs as needed I nhalation every 4 hours as needed Active Levothyroxine Sodium 25 MCG 1 capsule on an empty stom ach in the morning Orally Once a day for 30 Active Arnica - as directed topically gel OTC BID for knee pain Aug, Active Ranitidine HCl 150 MG 1 capsule Orally Twice a day Not-Taking Nebulizer/Tubing/Mouthpiece as directed _ DX: J44.1, daily use f or 30 Days Feb, Active Amrix 15 MG 2 capsule Orally once daily for 30 Days Active OneTouch Verio - 1 lancet In Vitro Daily for 90 day(s) Active OxyCODONE HCl ER 15 MG 1 tablet Orally before bedtime for 30 Day s Jul, Active PredniSONE 5 MG 2 tablets x 5d, then 1 table t 5days Orally Once a day for 10 day(s) Aug, Not-Taking Benzonatate 100 MG 1 capsule as needed Orally Three times a day for 10 day(s) Oct, Not-Taking Zofran 4 MG 1 tablet Orally Once a day for 30 Days Active AmLODIPine Besylate 5 MG 1 tablet Orally Once a day for 30 day(s ) Aug, Not-Taking Metformin HCl 1000 MG 1 tablet with meals Orally Twice a day for 30 Active PredniSONE 10 MG as directed Orally 2 tabs BID x5 days, 1 tab BI D x5 days Aug, Not-Taking Doxycycline Hyclate 100 MG 1 tablet Orally bid x 7 days Aug, Not-Taking Benadryl Allergy 25 MG 1 tablet as needed Orally every 8 hrs Active Albuterol Sulfate HFA 108 (90 Base) MCG/ACT 1 puff Inh alation every 4 hours as needed for 30 Days Oct, Active Torsemide 10 MG 1 tablet Orally Once a day for 30 day(s) Active PredniSONE 5 MG 2 tablets x5D, 1 tablet x5Days Orally On ce a day for 10 day(s) Aug, Not-Taking Cymbalta 60 MG 1 cap Orally once daily Active Nystatin 527563 UNIT/GM 1 application to affected ar ea Externally Twice a day for 30 day(s) Oct, Not-Taking HydrOXYzine HCl 50 MG 1 tablet as needed Orally qid for 30 Active AmLODIPine Besylate 5 MG 1 tablet Orally bid for 30 day(s) Active Probiotic - 1 cap Orally Daily Activ e Voltaren 1 % 1gram Transdermal every 6 hours as needed for 30 Days Active Ropinirole HCl 1 MG 2 tablets Orally bid for 30 Active PROCEDURES No Information RESULTS No Results REASON FOR VISIT Medication Refill MEDICAL (GENERAL) HISTORY Type Description Date Medical History COPD/Asthma-Echo. 08/2017, mi ld pulm.HTN, nl LV, Mild diastolic dysfunction, hyperkinetic wall motion of LV-Dr. Walsh Medical History T2DM Medical History Hypothyroidism Medical History 10 cm retrocardiac hiatal hernia Medical History Sjogren syndrome Medical History REstless legs Medical History ARNEL Medical History Migraines Medical History Acute Kidney Failutre(Dehydration) Medical History CHF Medical History ACUTE BRONCHITIS Medical History MORBID OBESITY Medical History HIATAL HERNIA Medical History ACUTE RESPIRATORY FAILURE WITH HYPOXEMIA Medical History HYPERTENSION Surgical History Tonsillectomy Surgical History Ganglion cyst with carpal release, left wrist Surgical History section x2 Surgical History Appendectomy Surgical History Left arthroscopy Surgical History Left knee replacement x2 2008, 2013 Surgical History Cataracts Hospitalization History surgeries Hospitalization History COPD 08/13/2016 Hospitalization History Pneumonia/resp failure 2016 Hospitalization History COPD, Acute Kidney Failure(Dehydrati on) 08/2019 Goals Section No Information Health Concerns No Information MEDICAL EQUIPMENT No Information MENTAL STATUS No Information FUNCTIONAL STATUS No Information ASSESSMENTS No Information PLAN OF TREATMENT Medication Medication Name Sig Start Date Stop Date Voltaren 1 % 1gram Transdermal every 6 hours as needed for 30 Days Ropinirole HCl 1 MG 2 tablets Orally bid for 30 Zofran 4 MG 1 tablet Orally Once a day for 30 Days AmLODIPine Besylate 5 MG 1 tablet Orally bid for 30 day(s) Nystatin 495101 UNIT/GM 1 application Externally und er breast and groin Twice a day for 14 days May, Metformin HCl 1000 MG 1 tablet with meals Orally Twice a day for 30 Advair Diskus 250-50 MCG/DOSE 1 puff Inhalation Daily for 30 Day s Cymbalta 60 MG 1 cap Orally once daily Levothyroxine Sodium 25 MCG 1 capsule on an empty stom ach in the morning Orally Once a day for 30 HydrOXYzine Pamoate 25 MG 1 capsule as needed Orally Daily prn f or 30 day(s) OxyCODONE HCl ER 15 MG 1 tablet Orally before bedtime for 30 Day s Jul, Hydromorphone HCl 2 MG 1 tab Orally qhs for 30 Days Jul, Ipratropium-Albuterol 0.5-2.5 (3) MG/3ML 3 ml Inhalation BID prn Ventolin HFA 108 (90 Base) MCG/ACT 2 puffs as needed I nhalation every 4 hours as needed Next Appt Details Provider Name:Jackeline Germian, 2020-08-29 02 :00:00 PM, [address] [place], [address], Insurance Providers Payer Name Payer Address Payer Phone Insured Name Patient Relati onship to Insured Coverage Start Date Coverage End Date MEDICARE Part A and B [address] [facility] [phone] SARAVANAN DAUGHERTY self
--- OUTSIDE RECORDS SUMMARY | 2020-08-29 14:09 | CCD ---
Author Author [facility] Organization [facility] Address Unknown Phone Unavailable Care Team Providers Care Sales Secretary Name Role Phone Jackeline Germain Unavailable PROBLEMS Type Condition ICD9-CM Code FUY95-SZ Code Onset Dates Condition S tatus SNOMED Code Notes Problem longterm current use of opiate analgesic Z79.891 Active 642622267 Problem Obesity, unspecified obesity severity, unspecified obe sity type E66.9 Active 332583705 Problem Left knee pain M25.562 Active 89095306 Problem Anxiety F41.9 Active 30961403 Problem Restless leg syndrome G25.81 Active 23040852 Problem COPD exacerbation J44.1 Active 179231253 Problem Hypothyroidism, unspecified type E03.9 Active 11499410 Problem Migraine without status migr ainosus, not intractable, unspecified migraine type G43.909 Active 29992065 Problem Asthma exacerbation J45.901 Active 541053582 Problem Other chronic pain G89.29 Active 17358534 Problem Sleep apnea, unspecified type G47.30 Active 73 687474 Problem Type 2 diabetes mellitus wit hout complication, unspecified long term acute care registered nurse insulin use status E11.9 Active 870760850 Problem Uncomplicated asthma, unspecified asthma severity J45.909 Active 492323366 Problem ARNEL (obstructive sleep apnea) G47.33 Active 78 543819 Problem Chronic prescription opiate use Z79.891 Active 280928848 Problem Morbid (severe) obesity due to excess calories E66 .01 Active 368990821 Problem Body mass index (BMI) of 45.0-49.9 in adult Z68.42 Active 188600939 Problem Chronic obstructive pulmonary disease with acute exacerbat ion J44.1 Active 339231809 Problem Obesity (BMI 30-39.9) E66.9 Active 356741741 Problem Breast cancer screening by mammogram Z12.31 Act basilio 618065139 Problem Post-traumatic osteoarthritis of left knee M17.32 Active 370488304 Problem COPD (chronic obstructive pulmonary disease) wit h acute bronchitis J44.0 Active 625782806567541 Problem Lipid screening Z13.220 Active 777209264 Problem Chronic sinusitis, unspecified J32.9 Active 3 9645649 Problem Chronic obstructive pulmonary disease, unspecified COPD ty pe J44.9 Active 23616145 Problem Moderate persistent asthma with acute exacerbation J45.41 Active 560208412969192 Problem Cervical cancer screening Z12.4 Active 440766 001 Problem Encounter for immunization Z23 Active 88646 8001 Problem Essential hypertension I10 Active 14149801 ALLERGIES Allergen (clinical drug ingredient) Drug/Non Drug Allergy do cumented on EMR Reaction Allergy Type Onset Date Status Latex (for allergy use only) Rash Drug Allergy Active lactose diarrhea, abdominal pain Non Drug Allergy Active pregabalin Lyrica([facility] Code:[address]-55) itching Drug Allergy Active Levaquin facial swelling Drug Allergy Active Nickel swelling Drug Allergy Active Statins (for Allergy Use Only) increased LFTS, muscular pa in Drug Allergy Active NSAIDS abdominal pain, GI ulcer Non Drug Allergy Active ENCOUNTERS from 1950 to 2020-08-17 Encounter Location Date Provider Diagnosis [facility] [address] [place] [id number] Aug, Jackeline Germain 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 of opiate analgesi c Z79.891 and Left knee pain M25.562 IMMUNIZATIONS Vaccine Route Administration Date Status Influenza [...] Education Language: Question Answer Notes Languages spoken: Armenian Yarsanism: Question Answer Notes Yarsanism 33 None Sexual Hx: Question Answer Notes [...] 8 hours x 10 days Aug Active Ipratropium-Albuterol 0.5-2.5 (3) MG/3ML 3 ml Inhalation BID prn Active Advair Diskus 250-50 MCG/DOSE 1 puff Inhalation Daily for 30 Days Active Amrix 15 MG 2 capsule Orally once daily for 30 Days Active Torsemide 10 MG 1 tablet Orally Once a day for 30 day(s) Active Promethazine HCl 12.5 MG 1 tablet as needed Orally Daily for 30 day(s) Nov, Active Hydromorphone HCl 2 MG 1 tab Orally qhs for 30 Days Aug Active Ventolin HFA 108 (90 Base) MCG/ACT [...] 1 capsule Orally Twice a day Not-Taking OxyCODONE HCl ER 15 MG 1 tablet Orally before bedtime for 30 Day s Aug, Active Benadryl Allergy 25 MG 1 tablet as needed Orally every 8 hrs Active OneTouch Verio - 1 strip In Vitro Daily for 90 day(s) Active OneTouch Verio - 1 lancet In Vitro Daily for 90 day(s) Active PredniSONE 5 MG 2 tablets x [...] day for 30 day(s ) Aug, Not-Taking Albuterol Sulfate HFA 108 (90 Base) MCG/ACT 1 puff Inh alation every 4 hours as needed for 30 Days Oct, Active PredniSONE 10 MG as directed Orally 2 tabs BID x5 days, 1 tab BI D x5 days Aug, Not-Taking Doxycycline Hyclate 100 MG 1 tablet Orally bid x 7 days Aug, Not-Taking Metformin HCl 1000 MG 1 tablet with meals Orally Twice a day for 30 Active Nystatin 911568 UNIT/GM 1 application Externally und er breast and groin Twice a day for 14 days May, Active Nebulizer/Tubing/Mouthpiece as directed _ DX: J44.1, daily use f or 30 Days Feb, Active PredniSONE 5 MG 2 tablets x5D, 1 tablet x5Days Orally On ce a day for 10 day(s) Aug, Not-Taking Cymbalta 60 MG 1 cap Orally once daily Active Nystatin 890349 UNIT/GM 1 application to affected ar ea [...] Information RESULTS No Results REASON FOR VISIT Refill Amrix, Hydromorphone, Oxycodone MEDICAL (GENERAL) HISTORY Type Description Date Medical [...] No Information FUNCTIONAL STATUS No Information ASSESSMENTS Encounter Date Diagnosis Assessment Notes Treatment Notes Treatm ent Clinical Notes Aug, longterm current use of opiate analgesic (ICD-1 0 - Z79.891) Aug, Left knee pain (ICD-10 - M25.562) PLAN OF TREATMENT Medication Medication Name Sig Start Date Stop Date Voltaren 1 % 1gram Transdermal every 6 hours as needed for 30 Days Ropinirole HCl 1 MG 2 tablets Orally bid for 30 Zofran 4 MG 1 tablet Orally Once a day for 30 Days AmLODIPine Besylate 5 MG 1 tablet Orally bid for 30 day(s) Nystatin 913793 UNIT/GM 1 application Externally und er breast [...] Orally Daily prn f or 30 day(s) Amrix 15 MG 2 capsule Orally once daily for 30 Days OxyCODONE HCl ER 15 MG 1 tablet Orally before bedtime for 30 Day s Aug, Hydromorphone HCl 2 MG 1 tab Orally qhs for 30 Days Aug, Ventolin HFA 108 (90 Base) MCG/ACT 2 puffs as needed I nhalation every 4 hours as needed Ipratropium-Albuterol 0.5-2.5 (3) MG/3ML 3 ml Inhalation BID prn Next Appt Details Provider Name:Jackeline Germain, 2020-08-29 02 :00:00 PM, [address] [place], [address], Insurance Providers Payer Name Payer Address Payer Phone Insured Name Patient Relati onship to Insured Coverage Start Date Coverage End Date MEDICARE Part A and B [address] [facility] [phone] SARAVANAN DAGUHERTY self
--- OUTSIDE RECORDS SUMMARY | 2020-08-29 14:09 | CCD ---
Author Author [facility] Organization [facility] Address Unknown Phone Unavailable Care Team Providers Care Six Pack Packer Name Role Phone Jackeline Germain Unavailable PROBLEMS Type Condition ICD9-CM Code OKD01-CC Code Onset Dates Condition S tatus SNOMED Code Notes Problem [facility] current use of opiate analgesic Z79.891 Active 405725172 Problem Obesity, unspecified obesity severity, unspecified obe sity type E66.9 Active 432732358 Problem Left knee pain M25.562 Active 66259848 Problem Anxiety F41.9 Active 39764177 Problem Restless leg syndrome G25.81 Active 23418276 Problem COPD exacerbation J44.1 Active 032289285 Problem Hypothyroidism, unspecified type E03.9 Active 06410118 Problem Migraine without status migr ainosus, not intractable, unspecified migraine type G43.909 Active 78860112 Problem Asthma exacerbation J45.901 Active 991249462 Problem Other chronic pain G89.29 Active 69614401 Problem Sleep apnea, unspecified type G47.30 Active 73 045309 Problem Type 2 diabetes mellitus wit hout complication, 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.9 Active 373634615 Problem Uncomplicated asthma, unspecified asthma severity J45.909 Active 016147088 Problem ARNEL (obstructive sleep apnea) G47.33 Active 78 909639 Problem Chronic prescription opiate use Z79.891 Active 407077059 Problem Morbid (severe) obesity due to excess calories E66 .01 Active 155856551 Problem Body mass index (BMI) of 45.0-49.9 in adult Z68.42 Active 439494001 Problem Chronic obstructive pulmonary disease with acute exacerbat ion J44.1 Active 253876295 Problem Obesity (BMI 30-39.9) E66.9 Active 581057021 Problem Breast cancer screening by mammogram Z12.31 Act basilio 343126788 Problem Post-traumatic osteoarthritis of left knee M17.32 Active 800824516 Problem COPD (chronic obstructive pulmonary disease) wit h acute bronchitis J44.0 Active 445109560923448 Problem Lipid screening Z13.220 Active 915632700 Problem Chronic sinusitis, unspecified J32.9 Active 3 3200504 Problem Chronic obstructive pulmonary disease, unspecified COPD ty pe J44.9 Active 54974335 Problem Moderate persistent asthma with acute exacerbation J45.41 Active 775035598987836 Problem Cervical cancer screening Z12.4 Active 038103 001 Problem Encounter for immunization Z23 Active 10161 8001 Problem Essential hypertension I10 Active 08900663 ALLERGIES Allergen (clinical drug ingredient) Drug/Non Drug Allergy do cumented on EMR Reaction Allergy Type Onset Date Status Latex (for allergy use only) Rash Drug Allergy Active lactose diarrhea, abdominal pain Non Drug Allergy Active pregabalin Lyrica([facility] Code:[address]-18) itching Drug Allergy Active Levaquin facial swelling Drug Allergy Active Nickel swelling Drug Allergy Active Statins (for Allergy Use Only) increased LFTS, muscular pa in Drug Allergy Active NSAIDS abdominal pain, GI ulcer Non Drug Allergy Active ENCOUNTERS from 1950 to 2020-08-17 Encounter Location Date Provider Diagnosis [facility] [address] [place] [id number] Aug, 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 Z79.891 [...] Education Language: Question Answer Notes Languages spoken: Danish Sikhism: Question Answer Notes Sikhism 33 None Sexual Hx: Question Answer Notes [...] Twice a day for 30 Active Nystatin 319391 UNIT/GM 1 application Externally und er breast and groin Twice a day for 14 days May, Active Nebulizer/Tubing/Mouthpiece as directed _ DX: J44.1, daily use f or 30 Days Feb, Active PredniSONE 5 MG 2 tablets x5D, 1 tablet x5Days Orally On ce a day for 10 day(s) Aug, Not-Taking Cymbalta 60 MG 1 cap Orally once daily Active Nystatin 248460 UNIT/GM 1 application to affected ar ea [...] No Results REASON FOR VISIT Refill Amrix, Hydromorhone, Oxycodone MEDICAL (GENERAL) HISTORY Type Description Date [...] Treatment Notes Treatm ent Clinical Notes Aug, 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
--- OUTSIDE RECORDS SUMMARY | 2020-08-29 14:10 | CCD | Continuity of Care Document ---
Author Author Bessy MARTÍNEZ MD Organization Unknown Address [address] [place] [address], [facility] [place] [address] Phone [phone] Care Team Providers Care Spd Manager Name Role Phone Loraine Vaughn AUTM [phone] AUTM Unavailable Alden Galdamez DO AUTM [phone] Jackeline Germain Crna AUTM [phone] Kevin Thayer MD AUTM [phone] Problems Active Problems Provider Date Essential hypertension Alden Martínez MD Onset: 0 Heart failure, unspecified Alden Martínez MD Onset: 09/09 Palpitations Alden Martínez MD Onset: 09/09/2019 Morbid obesity Alden Martínez MD Onset: 09/09/2019 Dietary management surveillance Alden Martínez MD Onset: 09/09/2019 Edema ECHO Onset: 09/09/2019 Chest pain Alden Martínez MD Onset: 09/09/2019 Heart murmur Alden Martínez MD Onset: 09/09/2019 Chronic diastolic heart failure Alden Martínez MD Onset: 12/07/2019 Chronic right-sided heart failure Alden Martínez MD Onset : 05/15/2020 Social History Type Date Description Comments Sex Unknown ETOH Use Does not consume alcohol Tobacco Use Start: Unknown End: Unknown Patient is a former smoker Smoked for 47 years, stopped 2011 Smoking Status Reviewed: 05/15/20 Patient is a former smoker Sm oked for 47 years, stopped 2011 Exercise Type/Frequency Swims 3 times a week Exercise Limitations Shortness Of Breath Exercise Limitations Dizziness Allergies, Adverse Reactions, Alerts Active Allergies Reaction Severity Comments Date Latex rash/itching 09/09/2019 Nickel swelling 09/09/2019 Statins myalgia 09/09/2019 NSAIDs abd pain/gi ulcer 09/09/2019 Levaquin facial swelling 09/09/2019 Lyrica itching 09/09/2019 Lactose abd pain/diarrhea 09/09/2019 Medications Active Medications SIG Qnty Indications Ordering Provide r Date Torsemide 10mg Tablets 1 tab by mouth twice a day (7 am & 4 pm) 180tabs I50.9 Alden Martínez MD 0 05/07/2020 R60.0 Candesartan Cilexetil 4mg Tablets 1 by mouth daily at bedtime 30tabs I10 Alden Martínez MD 11/09 Magnesium Oxide 250mg Tablets 1 tablet by mouth twice a day Alden Martínez MD 0 Bisoprolol Fumarate 5mg Tablets 1 by mouth every day 30tabs I10 Alden Martínez MD 09/28/2019 I50.9 Duloxetine HCL 60mg Caps DR Anand Lacey by mouth every day 90caps Alden Martínez MD 09/16/2019 Duloxetine HCL 20mg Caps DR Anand Lacey cap by mouth every day 30caps R60.0 Alden Martínez MD 09/16/2019 Eplerenone 25mg Tablets 1 by mouth every day 30tabs I10 Alden Martínez MD 09/09/2019 R60.0 Multivitamin Adult Tablets 1 by mouth every day Unknown 09/08/2019 Nystatin 119524Sqsy/GM Cream apply to affected area as needed Unknown 09/08/19 20 Metformin HCL 1000mg Tablets 1 by mouth twice a day Unknown 09/08/2019 Advair Diskus 250-50mcg/Dose Aeros ol 1 puff twice a day Unknown 09/08/2019 Ipratropium [place]/Albuterol Sulfate 0.5-2.5(3)mg/3ML Solution 1 nebulizer treatment 4 times a day (wit h each meal and bedtime). Unknown 09/08/2019 Zofran 4mg Tablets 1 tablet every 8 hours when necessary for nausea Unknown 2019 Hydroxyzine HCL 50mg Tablets 1 tab by mouth every 8 hours daily only as needed Unknown 09/08/2019 Ropinirole HCL 1mg Tablets 1.5 by mouth twice a day Unknown 09/08/2019 Levothyroxine Sodium 25mcg Tablets 1 by mouth every day Unknown 09/08/2019 Benadryl Allergy 25mg Tablets 1 by mouth three times daily as needed Unknown 08/12 Arnicare Arnica Ointment 1-2 every day as needed Unknown 09/08/2019 Benzonatate 100mg Capsules 1 by mouth three times a day as needed Unknown 08/12 Probiotic Capsules 1 by mouth every day Unknown 09/08/2019 Oxycodone HCL 15mg Tablets 1 by mouth daily Unknown 09/08/2019 Hydromorphone HCL 2mg Tablets 2 po tid Unknown 09/08/2019 Amrix 15mg Caps ER 24HR 2 PO Daily Unknown 09/08/2019 Immunizations Description No Information Available Vital Signs Date Vital Result Comment 05/15/2020 10:19am Weight 239.00 lb Height 63 inches 5'3" BMI (Body Mass Index) 42.3 kg/m2 Heart Rate 81 /min BP Systolic Sitting 118 mmHg CBP, large cuff/Ra BP Diastolic Sitting 67 mmHg CBP, large cuff/Ra 12/07/2019 7:51am Weight 224.00 lb Height 63 inches 5'3" BMI (Body Mass Index) 39.7 kg/m2 Heart Rate 70 /min BP Systolic Sitting 144 mmHg CBP large adult cuff , Ra BP Diastolic Sitting 79 mmHg CBP large adult cuf f, Ra Results Test Acquired Date Facility Test Result H/L Range Note Renal Profile 05/19/2020 [facility] [phone] Glucose, Fasting 222 mg/dL High 70-100 Blood Urea Nitrogen 18 mg/dL Normal 7-18 Creatinine For GFR 1.35 mg/dL High 0.55-1.30 Glomerular Filtration Rate 41.6 Low >45 1 Sodium Level 137 mEq/L Normal 136-145 Potassium Serum 4.5 mEq/L Normal 3.5-5.1 Chloride Level 100 mEq/L Normal 98-107 Carbon Dioxide Level 33 mEq/L High 21-32 Anion Gap 4 mEq/L Low 8-16 Calcium Level 8.8 mg/dL Normal 8.8-10.2 Phosphorus Level 3.9 mg/dL Normal 2.5-4.9 Albumin 3.2 GM/DL Normal 3.2-5.2 Laboratory test finding 05/19/2020 [facility] [phone] NT-Pro BNP 99 pg/mL Normal <125 Magnesium Level 1.4 mg/dL Low 1.8-2.4 1 Units are mL/min/1.73 m2 Chronic Kidney Disease Staging per NKF: Stage I & II GFR >=60 Normal to Mildly Decreased Stage III GFR 30-59 Moderately Decreased Stage IV GFR 15-29 Severely Decreased Stage V GFR <15 Very Little GFR Left ESRD GFR <15 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 Procedures Date Code Description Status 05/15/2020 75653 Arterial Pressure Wa veform Analysis For Assessment Of Central Art Completed Medical Devices Description No Information Available Encounters Type Date Location Provider Dx Diagnosis Office Visit 05/23/2020 3:22p Main Office Alden Martínez MD I10 Essential (primary) hypertension E66.01 Morbid (severe) obesity due to excess calories I50.32 Chronic diastolic (congestiv e) heart failure Office Visit 05/15/2020 10:00a Main Office Alden Martínez MD I50.8 12 Chronic right heart failure I10 Essential (primary) hyperten viral R60.0 Localized edema E66.01 Morbid (severe) obesity due to excess calories Z71.3 Dietary counseling and surve illance Office Visit 05/07/2020 4:07p Main Office Alden Martínez MD I10 Essential (primary) hypertension E66.01 Morbid (severe) obesity due to excess calories I50.32 Chronic diastolic (congestiv e) heart failure Office Visit 04/04/2020 3:46p Main Office Alden Martínez MD I10 Essential (primary) hypertension E66.01 Morbid (severe) obesity due to excess calories R00.2 Palpitations I50.32 Chronic diastolic (congestiv e) heart failure Office Visit 03/02/2020 1:22p Main Office Alden Martínez MD I50.3 2 Chronic diastolic (congestive) heart failure R60.0 Localized edema I10 Essential (primary) hyperten viral E66.01 Morbid (severe) obesity due to excess calories Assessments Date Code Description Provider 05/23/2020 I10 Essential (primary) hypertension Alden Martínez MD 05/23/2020 E66.01 Morbid (severe) obesity due to e xcess calories Alden Martínez MD 05/23/2020 I50.32 Chronic diastolic (congestive) h eart failure Alden Martínez MD 05/15/2020 I50.812 Chronic right heart failure Alejandro Martínez MD 05/15/2020 I10 Essential (primary) hypertension Alden Martínez MD 05/15/2020 R60.0 Localized edema Alden Martínez MD 05/15/2020 E66.01 Morbid (severe) obesity due to e xcess calories Alden Martínez MD 05/15/2020 Z71.3 Dietary counseling and surveilla nce Alden Martínez MD 05/07/2020 I10 Essential (primary) hypertension Alden Martínez MD 05/07/2020 E66.01 Morbid (severe) obesity due to e xcess calories Alden Martínez MD 05/07/2020 I50.32 Chronic diastolic (congestive) h eart failure Alden Martínez MD 04/04/2020 I10 Essential (primary) hypertension Alden Martínez MD 04/04/2020 E66.01 Morbid (severe) obesity due to e xcess calories Alden Martínez MD 04/04/2020 R00.2 Palpitations Alden Martínez MD 04/04/2020 I50.32 Chronic diastolic (congestive) h eart failure Alden Martínez MD 03/02/2020 I50.32 Chronic diastolic (congestive) h eart failure Alden Martínez MD 03/02/2020 R60.0 Localized edema Alden Martínez MD 03/02/2020 I10 Essential (primary) hypertension Alden Martínez MD 03/02/2020 E66.01 Morbid (severe) obesity due to e xcess calories Alden Martínez MD Plan of Treatment Future Appointment(s):* 11/13/2020 9:15 am - [facility] 05/15/2020 - Alden Martínez MD* I50.812 Chronic right heart failure* Recommendations:* Continue torsemide and eplerenone at the current dosages. NT proBNP, renal panel, serum magnesium were ordered. * I10 Essential (primary) hypertension* Recommendations:* Continue candesartan, bisoprolol, torsemide, eplerenone at the current dosages. * R60.0 Localized edema* Recommendations:* Continue torsemide and eplerenone at the current dosages. * E66.01 Morbid (severe) obesity due to excess calories* Recommendations:* PCRM power plate: Consume food from the following 4 food groups: Fruits, vegetab les, intact whole grains, beans & legumes. Avoid animal products. Avoid processed foods. She was strongly not to add fats. For example, she was instructed not to cook with vegetable oils of any kind and not to add margarine to bread. * Z71.3 Dietary counseling and surveillance * All * Follow up:* Follow-up in 6 months . Functional Status Functional Condition Comment Date Status Independent with all ADL's Activ e Mental Status Description No Information Available Referrals Description No Information Available
--- OUTSIDE RECORDS SUMMARY | 2020-08-29 14:10 | CCD ---
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 Z79.891 Active 180006906 Problem Obesity, unspecified obesity severity, unspecified obe sity type E66.9 Active 420597970 Problem Left knee pain M25.562 Active 70256897 Problem Anxiety F41.9 Active 73292220 Problem Restless leg syndrome G25.81 Active 67768018 Problem COPD exacerbation J44.1 Active 784716024 Problem Hypothyroidism, unspecified type E03.9 Active 04514057 Problem Migraine without status migr ainosus, not intractable, unspecified migraine type G43.909 Active 29544954 Problem Asthma exacerbation J45.901 Active 927795695 Problem Other chronic pain G89.29 Active 61084826 Problem Sleep apnea, unspecified type G47.30 Active 73 238430 Problem Type 2 diabetes mellitus wit hout complication, unspecified senior care insulin use status E11.9 Active 857008486 Problem Uncomplicated asthma, unspecified asthma severity J45.909 Active 137383706 Problem ARNEL (obstructive sleep apnea) G47.33 Active 78 679896 Problem Chronic prescription opiate use Z79.891 Active 552410522 Problem Morbid (severe) obesity due to excess calories E66 .01 Active 825901900 Problem Body mass index (BMI) of 45.0-49.9 in adult Z68.42 Active 222036301 Problem Chronic obstructive pulmonary disease with acute exacerbat ion J44.1 Active 014160609 Problem Obesity (BMI 30-39.9) E66.9 Active 947159713 Problem Breast cancer screening by mammogram Z12.31 Act basilio 467987938 Problem Post-traumatic osteoarthritis of left knee M17.32 Active 549136341 Problem COPD (chronic obstructive pulmonary disease) wit h acute bronchitis J44.0 Active 533437793537268 Problem Lipid screening Z13.220 Active 847116847 Problem Chronic sinusitis, unspecified J32.9 Active 3 4923114 Problem Chronic obstructive pulmonary disease, unspecified COPD ty pe J44.9 Active 45296219 Problem Moderate persistent asthma with acute exacerbation J45.41 Active 333166837909198 Problem Cervical cancer screening Z12.4 Active 754910 001 Problem Encounter for immunization Z23 Active 97468 8001 Problem Essential hypertension I10 Active 46894110 ALLERGIES Allergen (clinical drug ingredient) Drug/Non Drug Allergy do cumented on EMR Reaction Allergy Type Onset Date Status Latex (for allergy use only) Rash Drug Allergy Active lactose diarrhea, abdominal pain Non Drug Allergy Active pregabalin Lyrica([facility] Code:[address]-03) itching Drug Allergy Active Levaquin facial swelling Drug Allergy Active Nickel swelling Drug Allergy Active Statins (for Allergy Use Only) increased LFTS, muscular pa in Drug Allergy Active NSAIDS abdominal pain, GI ulcer Non Drug Allergy Active ENCOUNTERS from 1950 to 2020-06-21 Encounter Location Date Provider Diagnosis [address] [address] Jun, Loraine Vaughn IMMUNIZATIONS Vaccine Route Administration Date Status Influenza (18 yrs & older) Flublok IM Intramuscular Jun 17, 2018 Administered Rocephin 1gm (Ceftriaxone) IM Intramuscular Aug 25, 2016 Admi nistered Lidocaine 1% IM Intramuscular Aug 25, 2016 Administered Depo-Medrol 40mg (Methylpredisolone Acetate) IM Intramuscular 2016 Administered Pneumococcal Adult 0.5mL (Pneumovax 23) [...] Education Language: Question Answer Notes Languages spoken: Thai Judaism: Question Answer Notes Judaism 33 None Sexual Hx: Question Answer Notes [...] MEDICATIONS Medication SIG (Take, Route, Frequency, Duration) Start Date En d Date Status HydrOXYzine Pamoate 25 MG 1 capsule as needed Orally Daily prn f or 30 day(s) Active Benzonatate 100 MG 1 cap Orally q 8 hours x 10 days Aug, Active Ipratropium-Albuterol 0.5-2.5 (3) MG/3ML 3 ml Inhalation BID prn Active Advair Diskus 250-50 MCG/DOSE 1 puff Inhalation Daily for 30 Days Active Nystatin 122434 UNIT/GM 1 application Externally und er breast and groin Twice a day for 14 days May, Active Torsemide 10 MG 1 tablet Orally Once a day for 30 day(s) Active Promethazine HCl 12.5 MG 1 tablet as needed Orally Daily for 30 day(s) Nov, Active Hydromorphone HCl 2 MG 1 tab Orally qhs for 30 Days Jun, Active Ventolin HFA 108 (90 Base) MCG/ACT 2 puffs as needed I nhalation every 4 hours as needed Active Levothyroxine Sodium 25 MCG 1 capsule on an empty stom ach in the morning Orally Once a day for 30 Active Arnica - as directed topically gel OTC BID for knee pain Aug Active Ranitidine HCl 150 MG 1 capsule Orally Twice a day Not-Taking OxyCODONE HCl ER 15 MG 1 tablet Orally before bedtime for 30 Day s Jun, Active Amrix 15 MG 2 capsule Orally once daily for 30 Days Active OneTouch Verio - 1 strip In Vitro Daily for 90 day(s) Active OneTouch Verio - 1 lancet In Vitro Daily for 90 day(s) Active Doxycycline Hyclate 100 MG 1 tablet Orally bid x 7 days Aug, 0 Not-Taking PredniSONE 5 MG 2 tablets x 5d, then 1 table t 5days Orally Once a day for 10 day(s) Aug, Not-Taking PredniSONE 5 MG 2 tablets x5D, 1 tablet x5Days Orally On ce a day for 10 day(s) Aug, Not-Taking Ropinirole HCl 1 MG 2 tablets Orally bid Active Metformin HCl 1000 MG 1 tablet with meals Orally Twice a day for 30 Active Nystatin 827645 UNIT/GM 1 application to affected ar ea Externally Twice a day for 30 day(s) Oct, Not-Taking AmLODIPine Besylate 5 MG 1 tablet Orally Once a day for 30 day(s ) Aug, Not-Taking Benadryl Allergy 25 MG 1 tablet as needed Orally every 8 hrs Active Albuterol Sulfate HFA 108 (90 Base) MCG/ACT 1 puff Inh alation every 4 hours as needed for 30 Days Oct, Active Nebulizer/Tubing/Mouthpiece as directed _ DX: J44.1, daily u se for 30 Days Feb, Active PredniSONE 10 MG as directed Orally 2 tabs BID x5 days, 1 tab BID x5 days Aug, Not-Taking Cymbalta 60 MG 1 cap Orally once daily Ac tive Benzonatate 100 MG 1 capsule as needed Orally Three times a day for 10 day(s) Oct, Not-Taking Zofran 4 MG 1 tablet Orally Once a day for 30 Days Active Probiotic - 1 cap Orally Daily Active HydrOXYzine HCl 50 MG 1 tablet as needed Orally qid for 30 Active AmLODIPine Besylate 5 MG 1 tablet Orally bid for 30 day(s) Active Voltaren 1 % 1gram Transdermal every 6 hours as needed for 30 Days Active PROCEDURES No Information RESULTS No Results REASON FOR VISIT PA Zofran 4mg ODT tablets MEDICAL (GENERAL) HISTORY Type Description Date Medical [...] Medication Name Sig Start Date Stop Date AmLODIPine Besylate 5 MG 1 tablet Orally bid for 30 day(s) Voltaren 1 % 1gram Transdermal every 6 hours as needed for 30 Days Ropinirole HCl 1 MG 2 tablets Orally bid Zofran 4 MG 1 tablet Orally Once a day for 30 Days Nystatin 294931 UNIT/GM 1 application Externally und er breast [...] Orally Daily prn f or 30 day(s) Hydromorphone HCl 2 MG 1 tab Orally qhs for 30 Days Jun, Ipratropium-Albuterol 0.5-2.5 (3) MG/3ML 3 ml Inhalation BID prn OxyCODONE HCl ER 15 MG 1 tablet Orally before bedtime for 30 Day s Jun, Ventolin HFA 108 (90 Base) MCG/ACT 2 puffs as needed I nhalation every 4 hours as needed Next Appt Details Provider Name:Jackeline Germain, 2020-08-14 02 :30:00 PM, [address] [place], [address], Insurance Providers Payer Name Payer Address Payer Phone Insured Name Patient Relati onship to Insured Coverage Start Date Coverage End Date MEDICARE Part A and B [address] [facility] [id number] SARAVANAN DAUGHERTY self
--- OUTSIDE RECORDS SUMMARY | 2020-08-29 14:10 | CCD ---
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 Z79.891 Active 729576084 Problem Obesity, unspecified obesity severity, unspecified obe sity type E66.9 Active 444668109 Problem Left knee pain M25.562 Active 69067202 Problem Anxiety F41.9 Active 22300052 Problem Restless leg syndrome G25.81 Active 69660147 Problem COPD exacerbation J44.1 Active 723422966 Problem Hypothyroidism, unspecified type E03.9 Active 12178660 Problem Migraine without status migr ainosus, not intractable, unspecified migraine type G43.909 Active 56287066 Problem Asthma exacerbation J45.901 Active 443303148 Problem Other chronic pain G89.29 Active 15501891 Problem Sleep apnea, unspecified type G47.30 Active 73 629762 Problem Type 2 diabetes mellitus wit hout complication, unspecified usp insulin use status E11.9 Active 039366216 Problem Uncomplicated asthma, unspecified asthma severity J45.909 Active 441087957 Problem ARNEL (obstructive sleep apnea) G47.33 Active 78 817306 Problem Chronic prescription opiate use Z79.891 Active 088127558 Problem Morbid (severe) obesity due to excess calories E66 .01 Active 775215713 Problem Body mass index (BMI) of 45.0-49.9 in adult Z68.42 Active 706390616 Problem Chronic obstructive pulmonary disease with acute exacerbat ion J44.1 Active 704603716 Problem Obesity (BMI 30-39.9) E66.9 Active 528059397 Problem Breast cancer screening by mammogram Z12.31 Act basilio 485125255 Problem Post-traumatic osteoarthritis of left knee M17.32 Active 208059327 Problem COPD (chronic obstructive pulmonary disease) wit h acute bronchitis J44.0 Active 633383298459982 Problem Lipid screening Z13.220 Active 380224349 Problem Chronic sinusitis, unspecified J32.9 Active 3 4644112 Problem Chronic obstructive pulmonary disease, unspecified COPD ty pe J44.9 Active 06473294 Problem Moderate persistent asthma with acute exacerbation J45.41 Active 049329205325755 Problem Cervical cancer screening Z12.4 Active 478539 001 Problem Encounter for immunization Z23 Active 79230 8001 Problem Essential hypertension I10 Active 97358016 ALLERGIES Allergen (clinical drug ingredient) Drug/Non Drug Allergy do cumented on EMR Reaction Allergy Type Onset Date Status Latex (for allergy use only) Rash Drug Allergy Active lactose diarrhea, abdominal pain Non Drug Allergy Active pregabalin Lyrica([facility] Code:[address]-62) itching Drug Allergy Active Levaquin facial swelling Drug Allergy Active Nickel swelling Drug Allergy Active Statins (for Allergy Use Only) increased LFTS, muscular pa in Drug Allergy Active NSAIDS abdominal pain, GI ulcer Non Drug Allergy Active ENCOUNTERS from 1950 to 2020-06-21 Encounter Location Date Provider Diagnosis [address] [address] May, Loraine Vaughn IMMUNIZATIONS Vaccine Route Administration Date [...] Education Language: Question Answer Notes Languages spoken: Occitan Advent: Question Answer Notes Advent 33 None Sexual Hx: Question Answer Notes [...] Inhalation Daily for 30 Days Active Nystatin 529304 UNIT/GM 1 application Externally und er breast [...] Twice a day for 30 Active Nystatin 620304 UNIT/GM 1 application to affected ar ea [...] Information RESULTS No Results REASON FOR VISIT refill MEDICAL (GENERAL) HISTORY Type Description Date Medical [...] Once a day for 30 Days Nystatin 476556 UNIT/GM 1 application Externally und er breast [...] Name:Jackeline Germain, 2020-08-14 02 :30:00 PM, [address] [place], [address], Insurance Providers Payer Name Payer Address Payer Phone Insured Name Patient Relati onship to Insured Coverage Start Date Coverage End Date MEDICARE Part A and B [address] [place] [address] [phone] SARAVANAN DAUGHERTY self
--- OUTSIDE RECORDS SUMMARY | 2020-08-29 14:10 | CCD ---
Author Author [facility] Organization [facility] Address Unknown Phone Unavailable Care Team Providers Care Pathology Technologist Name Role Phone Jackeline Germain Unavailable PROBLEMS Type Condition ICD9-CM Code RFA16-KS Code Onset Dates Condition S tatus SNOMED Code Notes Problem [facility] current use of opiate analgesic Z79.891 Active 697195836 Problem Obesity, unspecified obesity severity, unspecified obe sity type E66.9 Active 159893767 Problem Left knee pain M25.562 Active 92722627 Problem Anxiety F41.9 Active 55602253 Problem Restless leg syndrome G25.81 Active 77741679 Problem COPD exacerbation J44.1 Active 905939998 Problem Hypothyroidism, unspecified type E03.9 Active 96347737 Problem Migraine without status migr ainosus, not intractable, unspecified migraine type G43.909 Active 23489074 Problem Asthma exacerbation J45.901 Active 662495667 Problem Other chronic pain G89.29 Active 64435192 Problem Sleep apnea, unspecified type G47.30 Active 73 279208 Problem Type 2 diabetes mellitus wit hout complication, 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 helper insulin use status E11.9 Active 455778303 Problem Uncomplicated asthma, unspecified asthma severity J45.909 Active 153366269 Problem ARNEL (obstructive sleep apnea) G47.33 Active 78 459090 Problem Chronic prescription opiate use Z79.891 Active 155052182 Problem Morbid (severe) obesity due to excess calories E66 .01 Active 854362996 Problem Body mass index (BMI) of 45.0-49.9 in adult Z68.42 Active 242925448 Problem Chronic obstructive pulmonary disease with acute exacerbat ion J44.1 Active 106593095 Problem Obesity (BMI 30-39.9) E66.9 Active 095049170 Problem Breast cancer screening by mammogram Z12.31 Act basilio 004858272 Problem Post-traumatic osteoarthritis of left knee M17.32 Active 988582371 Problem COPD (chronic obstructive pulmonary disease) wit h acute bronchitis J44.0 Active 065792185494244 Problem Lipid screening Z13.220 Active 288135599 Problem Chronic sinusitis, unspecified J32.9 Active 3 0721445 Problem Chronic obstructive pulmonary disease, unspecified COPD ty pe J44.9 Active 19307343 Problem Moderate persistent asthma with acute exacerbation J45.41 Active 510524131964072 Problem Cervical cancer screening Z12.4 Active 592206 001 Problem Encounter for immunization Z23 Active 34166 8001 Problem Essential hypertension I10 Active 64461067 ALLERGIES Allergen (clinical drug ingredient) Drug/Non Drug Allergy do cumented on EMR Reaction Allergy Type Onset Date Status Latex (for allergy use only) Rash Drug Allergy Active lactose diarrhea, abdominal pain Non Drug Allergy Active pregabalin Lyrica(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.] nhalation every 4 hours as needed Active HydrOXYzine Pamoate 25 MG 1 capsule as needed Orally Daily prn f or 30 day(s) Active Arnica - as directed topically gel [...] a day for 10 day(s) Oct, Not-Taking Levothyroxine Sodium 25 MCG 1 capsule on an empty stom ach in the morning Orally Once a day Active AmLODIPine Besylate 5 MG 1 tablet Orally Once a day for 30 day(s ) Aug, Not-Taking Metformin HCl 1000 MG 1 tablet with meals Orally Twice a day for 30 Active PredniSONE 10 MG as directed Orally 2 tabs BID x5 days, 1 tab BID x5 days Aug, Not-Taking Doxycycline Hyclate 100 MG 1 tablet Orally bid x 7 days Aug, 0 Not-Taking Benadryl Allergy 25 MG 1 tablet as needed Orally every 8 hrs Active Albuterol Sulfate HFA 108 (90 Base) MCG/ACT 1 puff Inh alation every 4 hours as needed for 30 Days Oct, Active Nebulizer/Tubing/Mouthpiece as directed _ DX: J44.1, daily u se for 30 Days Feb, Active PredniSONE 5 MG 2 tablets x5D, 1 tablet x5Days Orally On ce a day for 10 day(s) Aug, Not-Taking Ropinirole HCl 1 MG 2 tablets Orally bid Active Nystatin 619431 UNIT/GM 1 application to affected ar ea Externally Twice a day for 30 day(s) Oct, Not-Taking Zofran 4 MG 1 [...] Information RESULTS No Results REASON FOR VISIT HYDROMORPHONE AND OXYCOTIN MEDICAL (GENERAL) HISTORY Type Description Date Medical [...] STATUS No Information ASSESSMENTS Encounter Date Diagnosis Notes Jun, 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 c (ICD-10 - Z79.891) PLAN OF TREATMENT Medication Medication Name Sig Start Date Stop Date AmLODIPine Besylate 5 MG 1 tablet Orally bid for 30 day(s) Voltaren 1 % 1gram Transdermal every 6 hours as needed for 30 Days Levothyroxine Sodium 25 MCG 1 capsule on an empty stom ach in the morning Orally Once a day Zofran 4 MG 1 tablet Orally Once a day for 30 Days Nystatin 447230 UNIT/GM 1 application Externally und er breast and groin Twice a day for 14 days May, Metformin HCl 1000 MG 1 tablet with meals Orally Twice a day for 30 Cymbalta 60 MG 1 cap Orally once daily Ropinirole HCl 1 MG 2 tablets Orally bid HydrOXYzine Pamoate 25 MG 1 capsule as needed Orally Daily prn f or 30 day(s) Advair Diskus 250-50 MCG/DOSE 1 puff Inhalation Daily for 30 Day s Hydromorphone HCl 2 MG 1 tab Orally [...] Name:Jackeline Germain, 2020-08-14 02 :30:00 PM, [address] [place], [address], Insurance Providers Payer Name Payer Address Payer Phone Insured Name Patient Relati onship to Insured Coverage Start Date Coverage End Date MEDICARE Part A and B [address] [facility] [phone] SARAVANAN DAUGHERTY self
--- OUTSIDE RECORDS SUMMARY | 2020-08-29 14:10 | CCD ---
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 Active 513417019 Problem Obesity, unspecified obesity severity, unspecified obe sity type E66.9 Active 881539867 Problem Left knee pain M25.562 Active 69096474 Problem Anxiety F41.9 Active 76595720 Problem Restless leg syndrome G25.81 Active 73994971 Problem COPD exacerbation J44.1 Active 139060511 Problem Hypothyroidism, unspecified type E03.9 Active 12166647 Problem Migraine without status migr ainosus, not intractable, unspecified migraine type G43.909 Active 20985253 Problem Asthma exacerbation J45.901 Active 188489433 Problem Other chronic pain G89.29 Active 36851003 Problem Sleep apnea, unspecified type G47.30 Active 73 120576 Problem Type 2 diabetes mellitus wit hout complication, unspecified group home insulin use status E11.9 Active 925376255 Problem Uncomplicated asthma, unspecified asthma severity J45.909 Active 240761834 Problem ARNEL (obstructive sleep apnea) G47.33 Active 78 621810 Problem Chronic prescription opiate use Z79.891 Active 595635478 Problem Morbid (severe) obesity due to excess calories E66 .01 Active 408197653 Problem Body mass index (BMI) of 45.0-49.9 in adult Z68.42 Active 996336841 Problem Chronic obstructive pulmonary disease with acute exacerbat ion J44.1 Active 903934437 Problem Obesity (BMI 30-39.9) E66.9 Active 679856117 Problem Breast cancer screening by mammogram Z12.31 Act basilio 377883331 Problem Post-traumatic osteoarthritis of left knee M17.32 Active 606174432 Problem COPD (chronic obstructive pulmonary disease) wit h acute bronchitis J44.0 Active 727660622881698 Problem Lipid screening Z13.220 Active 119212124 Problem Chronic sinusitis, unspecified J32.9 Active 3 2933890 Problem Chronic obstructive pulmonary disease, unspecified COPD ty pe J44.9 Active 97466753 Problem Moderate persistent asthma with acute exacerbation J45.41 Active 480158365858270 Problem Cervical cancer screening Z12.4 Active 160149 001 Problem Encounter for immunization Z23 Active 95105 8001 Problem Essential hypertension I10 Active 59383553 ALLERGIES Allergen (clinical drug ingredient) Drug/Non Drug Allergy do cumented on EMR Reaction Allergy Type Onset Date Status Latex (for allergy use only) Rash Drug Allergy Active lactose diarrhea, abdominal pain Non Drug Allergy Active pregabalin Lyrica([facility] Code:[address]-38) itching Drug Allergy Active Levaquin facial swelling Drug Allergy Active Nickel swelling Drug Allergy Active Statins (for Allergy Use Only) increased LFTS, muscular pa in Drug Allergy Active NSAIDS abdominal pain, GI ulcer Non Drug Allergy Active ENCOUNTERS from 1950 to 2020-07-24 Encounter Location Date Provider Diagnosis [address] [address] Jul, Loraine Vaughn IMMUNIZATIONS Vaccine Route Administration Date [...] Education Language: Question Answer Notes Languages spoken: Burmese Baptism: Question Answer Notes Baptism 33 None Sexual Hx: Question Answer Notes [...] Inhalation Daily for 30 Days Active Nystatin 491917 UNIT/GM 1 application Externally und er breast [...] bedtime for 30 Day s Jul, Active Doxycycline Hyclate 100 MG 1 tablet Orally bid x 7 days Aug, Not-Taking PredniSONE 5 MG 2 tablets x [...] Twice a day for 30 Active Nystatin 888849 UNIT/GM 1 application to affected ar ea [...] a day for 30 day(s) Active PredniSONE 10 MG as directed Orally 2 tabs BID x5 days, 1 tab BI D x5 days Aug, Not-Taking Cymbalta 60 MG 1 cap Orally once daily Active Benzonatate 100 MG 1 capsule as needed Orally Three times a day for 10 day(s) Oct, Not-Taking Zofran 4 MG 1 tablet Orally Once a day for 30 Days Active Probiotic - 1 cap Orally Daily Activ e HydrOXYzine HCl 50 MG 1 tablet as needed Orally qid for 30 Active AmLODIPine Besylate 5 MG 1 tablet Orally bid for 30 day(s) Active Voltaren 1 % 1gram Transdermal every 6 hours as needed for 30 Days Active PROCEDURES No Information RESULTS No Results REASON FOR VISIT Dr Magdaleno's office - referral? MEDICAL (GENERAL) HISTORY Type Description Date Medical [...] Once a day for 30 Days Nystatin 467046 UNIT/GM 1 application Externally und er breast [...] Name:Jackeline Germain, 2020-08-14 02 :30:00 PM, [address] [place], [address], Insurance Providers Payer Name Payer Address Payer Phone Insured Name Patient Relati onship to Insured Coverage Start Date Coverage End Date MEDICARE Part A and B [address] [facility] [id number] SARAVANAN DAUGHERTY self
--- OUTSIDE RECORDS SUMMARY | 2020-08-29 14:10 | CCD | Continuity of Care Document ---
Author Author [facility] Organization Unknown Address [address] [facility], [address] [place] [address] Phone [phone] Care Team Providers Care Insurance Executive Name Role Phone Don Brian M.D. AUTM [phone] Shivani Sung D.O. AUTM [phone] Loraine Vaughn AUTM [phone] Problems Active Problems Provider Date Allergic asthma without status asthmaticus Murray Dawson Onset: 03/11/2016 Essential hypertension Gigi Luke M.D. Onset: 0 Social History Type Date Description Comments Sex Unknown Smokeless Tobacco Never Used Smokeless Tobacco ETOH Use Denies alcohol use Tobacco Use Start: Unknown End: Unknown Patient is a former smoker 1/2-1 PPD FOR 40 YEARS QUIT 2011 Recreational Drug Use Denies Drug Use Allergies, Adverse Reactions, Alerts Active Allergies Reaction Severity Comments Date NSAIDs SEVERE ABD PAIN 03/11/2016 Statins MUSCLE PAIN 03/11/2016 Levofloxacin 07/10/2017 Nickel REDNESS 07/10/2017 Aspirin BLEEDING ,STOMACH PAIN 05/02 Medications Active Medications SIG Qnty Indications Ordering Provide r Date Sucralfate 1GM/10ML Suspension 1 gm bid 400ml Kevin Thayer JR, MD 05/24/2020 Pantoprazole Sodium 40mg Tablets D R 1 by mouth every day 90tabs Kevin Thayer JR, MD 05/24/2020 Hydroxyzine HCL 50mg Tablets twice a day 30tabs Unknown Metformin HCL 1000mg Tablets 1 tab by mouth twice a day Unknown Ondansetron HCL 4mg Tablets 1 tab every 8 hours as needed nausea Unknown 0 Oxycontin 15mg Tab ER 12H Abuse-De t 1 at bedtime Unknown Ropinirole HCL 2mg Tablets twice a day Loraine Vaughn F.N.P. Bisoprolol Fumarate 5mg Tablets every day Alden Martínez M.D. Eplerenone 25mg Tablets every day Alden Martínez M.D. Torsemide 5mg Tablets every d ay 10tabs Alden Martínez M.D. Duloxetine HCL 60mg Caps DR Part every day Alden Martínez M.D. Dilaudid 2mg Tablets 1/2 tab by mouth every day Unknown Cyclobenzaprine HCL 10mg Tablets 3 at bedtime Unknown Benadryl Allergy 25mg Tablets 2 at bedtime Unknown Probiotic Capsules 1 by mouth every day Unknown Immunizations Description No Information Available Vital Signs Date Vital Result Comment 06/07/2020 9:58am BP Systolic 138 mmHg BP Diastolic 72 mmHg Height 63 inches 5'3" Weight 237.50 lb BMI (Body Mass Index) 42.1 kg/m2 [place] Body Weight 115 lb Weight 107.730 kg 05/02/2020 1:27pm BP Systolic 120 mmHg BP Diastolic 83 mmHg Height 63 inches 5'3" Weight 239.00 lb BMI (Body Mass Index) 42.3 kg/m2 [place] Body Weight 115 lb Weight 108.410 kg Results Test Acquired Date Facility Test Result H/L Range Note Laboratory test finding 05/24/2020 [facility] [address] [place] [address] [phone] Pathology Request For Service (SEE NOTE) 1 1 FINAL DIAGNOSIS Stomach, biopsy: Gastric mucosa with mild chronic inflammation and reactive changes. No H.pylori is identified. 05/25/2020 - 110 CLINICAL DIAGNOSIS Reflux, abdominal pain, hiatal hernia 05/25/2020718 GROSS DIAGNOSIS Received in formalin labeled "biopsy stomach R/O gastritis" and it consists of fragments of tissue 0.2 x 0.1 x 0.1 cm. All in one. -OA 05/25/2020 - 0719 Signed JUAN MENJIVAR MD 05/25/2020 1102 Procedures Date Code Description Status 05/24/2020 08636 Endoscopy Upper GI Biopsy Comple [employer] Devices Description No Information Available Encounters Type Date Location Provider Dx Diagnosis Office Visit 05/02/2020 1:10p [facility] Kevin nolen JR, MD K44.9 Diaphragmatic hernia without obstruction or gangrene R10.13 Epigastric pain Assessments Date Code Description Provider 05/24/2020 K29.50 Unspecified chronic gastritis wi thout bleeding Kevin Thayer JR, MD 05/02/2020 K44.9 Diaphragmatic hernia without obs truction or gangrene Kevin Thayer JR, MD 05/02/2020 R10.13 Epigastric pain Kevin Thayer JR, MD Plan of Treatment 05/02/2020 - Kevin Thayer JR, MD* K44.9 Diaphragmatic hernia without obstruction or gangrene* Comments:* Patient has probably a symptomatic hiatal hernia with the significant history of this being a problem over the years I anticipate this is still somewhat of an issue that it will need addressing and possible repair however with her morbid obesity I do feel that her recurrence rate for a hiatal hernia is extremely high at this point my recommendation is that we do further workup it's been several years since she's had any true workup i.e. endoscopy upper GI etc. and thus we will plan on an upper endoscopy for her to evaluate this to make sure that she just doesn't have some simple gastritis that's contributing to the problem The possibilities are also gastric emptying Issues * R10.13 Epigastric pain* Comments:* I anticipate this is a asymptomatic hiatal hernia could easily be the symptomatic gastritis will plan on an upper endoscopy for further evaluation Functional Status Description No Information Available Mental Status Description No Information Available Referrals Refer to Reason for Referral Status Appt Date Gigi Luke M.D. HIATAL HERNIA Closed [facility] [address] [place] [address] [phone]
--- OUTSIDE RECORDS SUMMARY | 2020-08-29 14:10 | CCD ---
Author Author [facility] Organization [facility] Address Unknown Phone Unavailable Care Team Providers Care Traffic Inspector Name Role Phone Leann Centeno Unavailable PROBLEMS Type Condition ICD9-CM Code [id number] Code Onset Dates Condition S tatus SNOMED Code Notes Problem [facility] current use of opiate analgesic Z79.891 Active 948510888 Problem Obesity, unspecified obesity severity, unspecified obe sity type E66.9 Active 764844078 Problem Left knee pain M25.562 Active 59607671 Problem Anxiety F41.9 Active 64068416 Problem Restless leg syndrome G25.81 Active 81534010 Problem COPD exacerbation J44.1 Active 960381669 Problem Hypothyroidism, unspecified type E03.9 Active 88583637 Problem Migraine without status migr ainosus, not intractable, unspecified migraine type G43.909 Active 55727546 Problem Asthma exacerbation J45.901 Active 501354403 Problem Other chronic pain G89.29 Active 79806437 Problem Sleep apnea, unspecified type G47.30 Active 73 612607 Problem Type 2 diabetes mellitus wit hout complication, unspecified care home insulin use status E11.9 Active 533395216 Problem Uncomplicated asthma, unspecified asthma severity J45.909 Active 001610084 Problem ARNEL (obstructive sleep apnea) G47.33 Active 78 784156 Problem Chronic prescription opiate use Z79.891 Active 617066805 Problem Morbid (severe) obesity due to excess calories E66 .01 Active 425668830 Problem Body mass index (BMI) of 45.0-49.9 in adult Z68.42 Active 427852263 Problem Chronic obstructive pulmonary disease with acute exacerbat ion J44.1 Active 709972781 Problem Obesity (BMI 30-39.9) E66.9 Active 967697304 Problem Breast cancer screening by mammogram Z12.31 Act basilio 717551805 Problem Post-traumatic osteoarthritis of left knee M17.32 Active 863960031 Problem COPD (chronic obstructive pulmonary disease) wit h acute bronchitis J44.0 Active 520436654504966 Problem Lipid screening Z13.220 Active 145416995 Problem Chronic sinusitis, unspecified J32.9 Active 3 8209969 Problem Chronic obstructive pulmonary disease, unspecified COPD ty pe J44.9 Active 58585664 Problem Moderate persistent asthma with acute exacerbation J45.41 Active 611166535607897 Problem Cervical cancer screening Z12.4 Active 067694 001 Problem Encounter for immunization Z23 Active 22806 8001 Problem Essential hypertension I10 Active 88965244 ALLERGIES Allergen (clinical drug ingredient) Drug/Non Drug Allergy do cumented on EMR Reaction Allergy Type Onset Date Status Latex (for allergy use only) Rash Drug Allergy Active lactose diarrhea, abdominal pain Non Drug Allergy Active pregabalin Lyrica([facility] Code:[address]-94) itching Drug Allergy Active Levaquin facial swelling Drug Allergy Active Nickel swelling Drug Allergy Active Statins (for Allergy Use Only) increased LFTS, muscular pa in Drug Allergy Active NSAIDS abdominal pain, GI ulcer Non Drug Allergy Active ENCOUNTERS from 1950 to 2020-06-25 Encounter Location Date Provider Diagnosis [facility] [address] [place] [phone] May, Leann Centeno Encounter for gyneco logical examination (general) (routine) without abnormal findings Z01.419 ; Encounter for other screening for malignant neoplasm of breast Z12.39 ; Encounter for screening for malignant neoplasm of cervix Z12.4 and Candidal intertrigo B37.2 IMMUNIZATIONS Vaccine Route Administration Date Status Influenza [...] Education Language: Question Answer Notes Languages spoken: Hebrew Presybeterian: Question Answer Notes Presybeterian 33 None Sexual Hx: Question Answer Notes [...] REASON FOR REFERRAL No Information VITAL SIGNS Weight 239 lbs May, Height 62 in May, BMI 43.71 kg/m2 May, Blood pressure systolic 112 mm Hg May, Blood pressure diastolic 76 mm Hg May, MEDICATIONS Medication SIG (Take, Route, Frequency, Duration) [...] Inhalation Daily for 30 Days Active Nystatin 390845 UNIT/GM 1 application Externally und er breast [...] Twice a day for 30 Active Nystatin 553155 UNIT/GM 1 application to affected ar ea [...] 30 Days Active PROCEDURES No Information RESULTS Component Value Reference Range PAP REQUEST FOR SERVICE Reviewed date:06/06/2020 13:10:21 Interpretation:Normal Performing Lab:[facility], [facility] [address] [address] , ,[place] [address] REASON FOR VISIT ANNUAL / MAMMO MEDICAL (GENERAL) HISTORY Type Description Date Medical [...] No Information ASSESSMENTS Encounter Date Diagnosis Notes May, Encounter for screening for malignant neoplasm of cervix (ICD-10 - Z12.4) May, Encounter for other screenin g for malignant neoplasm of breast (ICD-10 - Z12.39) May, Candidal intertrigo (ICD-10 - B37.2) May, Encounter for gynecological examination (general) (routine) without abnormal findings (ICD-10 - Z01.419) PLAN OF TREATMENT Medication Medication Name Sig Start Date Stop Date AmLODIPine Besylate 5 MG 1 tablet Orally bid for 30 day(s) Voltaren 1 % 1gram Transdermal every 6 hours as needed for 30 Days Ropinirole HCl 1 MG 2 tablets Orally bid Zofran 4 MG 1 tablet Orally Once a day for 30 Days Nystatin 784388 UNIT/GM 1 application Externally und er breast [...] 4 hours as needed Next Appt Details 1 Year Reason:cbe and mammo Provider Name:Jackeline Gemrain, 2020-08-14 02 :30:00 PM, [address] [place] [address], [phone], Follow Up:1 Yearcbe and mammo Insurance Providers Payer Name Payer Address Payer Phone Insured Name Patient Relati onship to Insured Coverage Start Date Coverage End Date MEDICARE Part A and B [address] [facility] [id number] SARAVANAN DAUGHERTY self
--- OUTSIDE RECORDS SUMMARY | 2020-08-29 14:10 | CCD | Continuity of Care Document ---
Author Author Bessy MARTÍNEZ MD Organization Unknown Address [address] [place] [address], [facility] [place] [address] Phone [phone] Care Team Providers Care Project Construction Assistant Manager Name Role Phone Loraine Vaughn AUTM [phone] AUTM Unavailable Alden Galdamez DO AUTM [phone] Jackeline Germain Crna AUTM [phone] Kevin Thayer MD AUTM [phone] Problems Active Problems Provider Date Essential hypertension [...] by mouth every day Unknown 09/08/2019 Nystatin 136205Pbvo/GM Cream apply to affected area as needed Unknown 09/08/19 20 Metformin HCL 1000mg Tablets 1 by mouth twice a day Unknown 09/08/2019 Advair Diskus 250-50mcg/Dose Aeros ol 1 puff twice a day Unknown 09/08/2019 Ipratropium [place]/Albuterol Sulfate 0.5-2.5(3)mg/3ML Solution 1 nebulizer treatment 4 [...] Result H/L Range Note Renal Profile 05/19/2020 [facility] nter [phone] Glucose, Fasting 222 mg/dL High 70-100 Blood [...] GM/DL Normal 3.2-5.2 Laboratory test finding 05/19/2020 [facility] [phone] NT-Pro BNP 99 pg/mL Normal <125 Magnesium Level 1.4 mg/dL Low 1.8-2.4 1 Units are mL/min/1.73 m2 Chronic Kidney Disease Staging per NKF: Stage I & II GFR >=60 Normal to Mildly Decreased Stage III GFR 30-59 Moderately Decreased Stage IV GFR 15-29 Severely Decreased Stage V GFR <15 Very Little GFR Left ESRD GFR <15 on PHLEBOTOMY INSTRUCTOR Procedures Date Code Description Status 05/15/2020 15318 Arterial Pressure Wa veform Analysis For Assessment Of Central Art Completed 01/06/2020 66078 Echocardiogram 2-D Doppler Color Completed Medical Devices Description No Information Available Encounters Type Date Location Provider Dx Diagnosis Office Visit 05/15/2020 10:00a Main Office Alden [...] excess calories Assessments Date Code Description Provider 05/15/2020 I50.812 Chronic right heart failure Alejandro [...] to e xcess calories Alden Martínez MD 01/06/2020 I50.32 Chronic diastolic (congestive) h eart failure ECHO 01/06/2020 R60.0 Localized edema ECHO Plan of Treatment Future Appointment(s):* 11/13/2020 9:15 am - CLARA Briggs at Main Office 05/15/2020 - Alden Martínez [...]
--- OUTSIDE RECORDS SUMMARY | 2020-08-29 14:10 | CCD ---
Author Author [facility] Organization [facility] Address Unknown Phone Unavailable Care Team Providers Care Waterside Worker Name Role Phone Jackeline Germain Unavailable PROBLEMS Type Condition ICD9-CM Code [id number] Code Onset Dates Condition S tatus SNOMED Code Notes Problem detention current use of opiate analgesic Z79.891 Active 923605248 Problem Obesity, unspecified obesity severity, unspecified obe sity type E66.9 Active 545973899 Problem Left knee pain M25.562 Active 51517826 Problem Anxiety F41.9 Active 07631083 Problem Restless leg syndrome G25.81 Active 93345891 Problem COPD exacerbation J44.1 Active 255854396 Problem Hypothyroidism, unspecified type E03.9 Active 68373783 Problem Migraine without status migr ainosus, not intractable, unspecified migraine type G43.909 Active 99787022 Problem Asthma exacerbation J45.901 Active 348476096 Problem Other chronic pain G89.29 Active 48263716 Problem Sleep apnea, unspecified type G47.30 Active 73 597553 Problem Type 2 diabetes mellitus wit hout complication, 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.9 Active 839646231 Problem Uncomplicated asthma, unspecified asthma severity J45.909 Active 048090764 Problem ARNEL (obstructive sleep apnea) G47.33 Active 78 498438 Problem Chronic prescription opiate use Z79.891 Active 028611874 Problem Morbid (severe) obesity due to excess calories E66 .01 Active 331857115 Problem Body mass index (BMI) of 45.0-49.9 in adult Z68.42 Active 464405725 Problem Chronic obstructive pulmonary disease with acute exacerbat ion J44.1 Active 759050531 Problem Obesity (BMI 30-39.9) E66.9 Active 989538246 Problem Breast cancer screening by mammogram Z12.31 Act basilio 139372631 Problem Post-traumatic osteoarthritis of left knee M17.32 Active 590531036 Problem COPD (chronic obstructive pulmonary disease) wit h acute bronchitis J44.0 Active 186522910289966 Problem Lipid screening Z13.220 Active 121714432 Problem Chronic sinusitis, unspecified J32.9 Active 3 7350238 Problem Chronic obstructive pulmonary disease, unspecified COPD ty pe J44.9 Active 87715775 Problem Moderate persistent asthma with acute exacerbation J45.41 Active 670091739725662 Problem Cervical cancer screening Z12.4 Active 296581 001 Problem Encounter for immunization Z23 Active 00255 8001 Problem Essential hypertension I10 Active 56403137 ALLERGIES Allergen (clinical drug ingredient) Drug/Non Drug Allergy do cumented on EMR Reaction Allergy Type Onset Date Status Latex (for allergy use only) Rash Drug Allergy Active lactose diarrhea, abdominal pain Non Drug Allergy Active pregabalin Lyrica([facility] Code:[address]-50) itching Drug Allergy Active Levaquin facial swelling Drug Allergy Active Nickel swelling Drug Allergy Active Statins (for Allergy Use Only) increased LFTS, muscular pa in Drug Allergy Active NSAIDS abdominal pain, GI ulcer Non Drug Allergy Active ENCOUNTERS from 1950 to 2020-07-13 Encounter Location Date Provider Diagnosis [facility] [address] [place] [phone] Jul, Jackelinezen Plascenciaer terminal operations supervisor current use of opiate analgesi c Z79.891 [...] Language: Question Answer Notes Languages spoken: Hebrew Pentecostalism: Question Answer Notes Pentecostalism 33 None Sexual Hx: Question Answer Notes [...] Inhalation Daily for 30 Days Active Nystatin 132775 UNIT/GM 1 application Externally und er breast [...] Twice a day for 30 Active Nystatin 969652 UNIT/GM 1 application to affected ar ea [...] RESULTS No Results REASON FOR VISIT HYDROMORPHONE & OXYCODONE REFILLS MEDICAL (GENERAL) HISTORY Type Description Date Medical [...] Notes Treatment Notes Treatm ent Clinical Notes Jul, detention current use of opiate analgesic (ICD-1 0 - Z79.891) PLAN OF TREATMENT Medication Medication Name Sig Start Date Stop Date AmLODIPine Besylate 5 MG 1 tablet Orally bid for 30 day(s) Voltaren 1 % 1gram Transdermal every 6 hours as needed for 30 Days Ropinirole HCl 1 MG 2 tablets Orally bid Zofran 4 MG 1 tablet Orally Once a day for 30 Days Nystatin 686734 UNIT/GM 1 application Externally und er breast [...] Name:Jackeline Germain, 2020-08-14 02 :30:00 PM, [address] [place], [address], Insurance Providers Payer Name Payer Address Payer Phone Insured Name Patient Relati onship to Insured Coverage Start Date Coverage End Date MEDICARE Part A and B [address] [facility] [id number] SARAVANAN DAUGHERTY self
--- OUTSIDE RECORDS SUMMARY | 2020-08-29 14:11 | CCD ---
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 Z79.891 Active 496280806 Problem Obesity, unspecified obesity severity, unspecified obe sity type E66.9 Active 833605717 Problem Left knee pain M25.562 Active 77705732 Problem Anxiety F41.9 Active 04457649 Problem Restless leg syndrome G25.81 Active 32605773 Problem COPD exacerbation J44.1 Active 986489967 Problem Hypothyroidism, unspecified type E03.9 Active 37553528 Problem Migraine without status migr ainosus, not intractable, unspecified migraine type G43.909 Active 88229761 Problem Asthma exacerbation J45.901 Active 379794654 Problem Other chronic pain G89.29 Active 51391984 Problem Sleep apnea, unspecified type G47.30 Active 73 140681 Problem Type 2 diabetes mellitus wit hout complication, unspecified halfway insulin use status E11.9 Active 444023095 Problem Uncomplicated asthma, unspecified asthma severity J45.909 Active 451952702 Problem ARNEL (obstructive sleep apnea) G47.33 Active 78 020969 Problem Chronic prescription opiate use Z79.891 Active 491416017 Problem Morbid (severe) obesity due to excess calories E66 .01 Active 406537427 Problem Body mass index (BMI) of 45.0-49.9 in adult Z68.42 Active 929066485 Problem Chronic obstructive pulmonary disease with acute exacerbat ion J44.1 Active 936376853 Problem Obesity (BMI 30-39.9) E66.9 Active 843786814 Problem Breast cancer screening by mammogram Z12.31 Act basilio 417599121 Problem Post-traumatic osteoarthritis of left knee M17.32 Active 051221798 Problem COPD (chronic obstructive pulmonary disease) wit h acute bronchitis J44.0 Active 097348303205818 Problem Lipid screening Z13.220 Active 300639629 Problem Chronic sinusitis, unspecified J32.9 Active 3 4951306 Problem Chronic obstructive pulmonary disease, unspecified COPD ty pe J44.9 Active 05608933 Problem Moderate persistent asthma with acute exacerbation J45.41 Active 786507842666658 Problem Cervical cancer screening Z12.4 Active 512453 001 Problem Encounter for immunization Z23 Active 08396 8001 Problem Essential hypertension I10 Active 67911862 ALLERGIES Allergen (clinical drug ingredient) Drug/Non Drug Allergy do cumented on EMR Reaction Allergy Type Onset Date Status Latex (for allergy use only) Rash Drug Allergy Active lactose diarrhea, abdominal pain Non Drug Allergy Active pregabalin Lyrica([facility] Code:[address]-95) itching Drug Allergy Active Levaquin facial swelling Drug Allergy Active Nickel swelling Drug Allergy Active Statins (for Allergy Use Only) increased LFTS, muscular pa in Drug Allergy Active NSAIDS abdominal pain, GI ulcer Non Drug Allergy Active ENCOUNTERS from 1950 to 2020-05-31 Encounter Location Date Provider Diagnosis [address] [address] May, Loraine Vaughn IMMUNIZATIONS Vaccine Route Administration [...] Education Language: Question Answer Notes Languages spoken: Polish Baptist: Question Answer Notes Baptist 33 None Sexual Hx: Question Answer Notes [...] Duration) Start Date En d Date Status Levothyroxine Sodium 25 MCG 1 capsule on an empty stom ach in the morning Orally Once a day Not-Taking Ropinirole HCl 1 MG 2 tablets Orally bid for 30 Days Active Metformin HCl 1000 MG 1 tablet with meals Orally Twice a day for 30 day(s) Active Advair Diskus 250-50 MCG/DOSE 1 puff Inhalation Daily for 30 Days Active Ranitidine HCl 150 MG 1 capsule Orally Twice a day Active Nebulizer/Tubing/Mouthpiece as directed _ DX: J44.1, daily u se for 30 Days Feb, Active PredniSONE 10 MG as directed Orally 2 tabs BID x5 days, 1 tab BID x5 days Aug, Not-Taking Amrix 15 MG 2 capsule Orally once daily for 30 Days Active OneTouch Verio - 1 lancet In Vitro Daily for 90 day(s) Active Cymbalta 60 MG 1 cap Orally once daily Ac tive Ventolin HFA 108 (90 Base) MCG/ACT 2 puffs as needed I nhalation every 4 hours as needed PARISH for 30 Days Aug, Active Benzonatate 100 MG 1 cap Orally q 8 hours x 10 days Aug, Active OneTouch Verio - 1 strip In Vitro Daily for 90 day(s) Active Promethazine HCl 12.5 MG 1 tablet as needed Orally Daily for 30 day(s) Nov, Active HydrOXYzine HCl 50 MG 1 tablet as needed Orally qid for 30 Active Benzonatate 100 MG 1 capsule as needed Orally Three times a day for 10 day(s) Oct, Not-Taking Doxycycline Hyclate 100 MG 1 tablet Orally bid x 7 days Aug, 0 Not-Taking Hydromorphone HCl 2 MG 1 tab Orally qhs mdd1 for 30 Days May, 20 Active Nystatin 065137 UNIT/GM 1 application to affected ar ea Externally Twice a day for 30 day(s) Oct, Not-Taking PredniSONE 5 MG 2 tablets x 5d, then 1 table t 5days Orally Once a day for 10 day(s) Aug, Not-Taking AmLODIPine Besylate 5 MG 1 tablet Orally Once a day for 30 day(s ) Aug, Not-Taking Benadryl Allergy 25 MG 1 tablet as needed Orally every 8 hrs Active PredniSONE 5 MG 2 tablets x5D, 1 tablet x5Days Orally On ce a day for 10 day(s) Aug, Not-Taking Arnica - as directed topically gel OTC BID for knee pain Aug Active Probiotic - 1 cap Orally Daily Active AmLODIPine Besylate 5 MG 1 tablet Orally bid for 30 day(s) Not-Taking Ipratropium-Albuterol 0.5-2.5 (3) MG/3ML 3 ml Inhalation BID prn Active Albuterol Sulfate HFA 108 (90 Base) MCG/ACT 1 puff Inh alation every 4 hours as needed for 30 Days Oct, Active OxyCODONE HCl ER 15 MG 1 tablet Orally before bedtimemdd1 fo r 30 Days May, Active Zofran 4 MG 1 tablet Orally Once a day for 30 Days Active Voltaren 1 % 1gram Transdermal every 6 hours as needed for 30 Days Nov, Active HydrOXYzine Pamoate 25 MG 1 capsule as needed Orally Daily p rn for 30 day(s) Nov, Not-Taking Compazine 25mg 1 tab orally q 8hrs. for nausea as neede d for 30 Days Nov, Not-Taking PROCEDURES No Information RESULTS No Results REASON FOR VISIT Low Dose CT Scan MEDICAL (GENERAL) HISTORY Type Description Date Medical [...] Medication Name Sig Start Date Stop Date OxyCODONE HCl ER 15 MG 1 tablet Orally before bedtimemdd1 fo r 30 Days May, Zofran 4 MG 1 tablet Orally Once a day for 30 Days Hydromorphone HCl 2 MG 1 tab Orally qhs mdd1 for 30 Days May, Next Appt Details Provider Name:Leann Taryn, 2020-06-05 10:30:00 AM, [address] [place] [address], [phone], Provider Name:Loraine Vaughn, 2019-08 10:30:00 AM, [address] [place] [address], [phone], Provider Name:Jackeline Germain, 2020-08-14 02 :30:00 PM, [address] [place], [address], Insurance Providers Payer Name Payer Address Payer Phone Insured Name Patient Relati onship to Insured Coverage Start Date Coverage End Date [employer] [facility] [address] [facility] [phone] SARAVANAN DAUGHERTY [address] [place] [address] [address] [facility] [address] SARAVANAN DAUGHERTY MEDICARE Part A and B [address] [facility] [address] [phone] SARAVANAN DAUGHERTY self
--- OUTSIDE RECORDS SUMMARY | 2020-08-29 14:11 | CCD ---
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 Active 704845472 Problem Obesity, unspecified obesity severity, unspecified obe sity type E66.9 Active 073660712 Problem Left knee pain M25.562 Active 56298829 Problem Anxiety F41.9 Active 59789760 Problem Restless leg syndrome G25.81 Active 95469079 Problem COPD exacerbation J44.1 Active 886683995 Problem Hypothyroidism, unspecified type E03.9 Active 38871135 Problem Migraine without status migr ainosus, not intractable, unspecified migraine type G43.909 Active 97476196 Problem Asthma exacerbation J45.901 Active 155930681 Problem Other chronic pain G89.29 Active 92688633 Problem Sleep apnea, unspecified type G47.30 Active 73 345510 Problem Type 2 diabetes mellitus wit hout complication, unspecified group home insulin use status E11.9 Active 796289688 Problem Uncomplicated asthma, unspecified asthma severity J45.909 Active 819930408 Problem ARNEL (obstructive sleep apnea) G47.33 Active 78 875944 Problem Chronic prescription opiate use Z79.891 Active 884476472 Problem Morbid (severe) obesity due to excess calories E66 .01 Active 303485679 Problem Body mass index (BMI) of 45.0-49.9 in adult Z68.42 Active 631627124 Problem Chronic obstructive pulmonary disease with acute exacerbat ion J44.1 Active 557293392 Problem Obesity (BMI 30-39.9) E66.9 Active 497067754 Problem Breast cancer screening by mammogram Z12.31 Act basilio 396132045 Problem Post-traumatic osteoarthritis of left knee M17.32 Active 427661867 Problem COPD (chronic obstructive pulmonary disease) wit h acute bronchitis J44.0 Active 867005712132757 Problem Lipid screening Z13.220 Active 503795750 Problem Chronic sinusitis, unspecified J32.9 Active 3 6339678 Problem Chronic obstructive pulmonary disease, unspecified COPD ty pe J44.9 Active 95534460 Problem Moderate persistent asthma with acute exacerbation J45.41 Active 738000866979961 Problem Cervical cancer screening Z12.4 Active 337841 001 Problem Encounter for immunization Z23 Active 18108 8001 Problem Essential hypertension I10 Active 39158436 ALLERGIES Allergen (clinical drug ingredient) Drug/Non Drug Allergy do cumented on EMR Reaction Allergy Type Onset Date Status Latex (for allergy use only) Rash Drug Allergy Active lactose diarrhea, abdominal pain Non Drug Allergy Active pregabalin Lyrica([facility] Code:[address]-20) itching Drug Allergy Active Levaquin facial swelling Drug Allergy Active Nickel swelling Drug Allergy Active Statins (for Allergy Use Only) increased LFTS, muscular pa in Drug Allergy Active NSAIDS abdominal pain, GI ulcer Non Drug Allergy Active ENCOUNTERS from 1950 to 2020-05-30 Encounter Location Date Provider Diagnosis [address] [address] May, Loraine Vaughn IMMUNIZATIONS Vaccine Route Administration [...] Education Language: Question Answer Notes Languages spoken: Faroese Worship: Question Answer Notes Worship 33 None Sexual Hx: Question Answer Notes [...] for 30 Days May, 20 Active Nystatin 420108 UNIT/GM 1 application to affected ar ea [...] Information RESULTS No Results REASON FOR VISIT F/up needed MEDICAL (GENERAL) HISTORY Type Description Date Medical [...] Days May, Next Appt Details Provider Name:Leann Centeno, 2020-06-05 10:30:00 AM, [address] [place] [address], [phone], Provider Name:Loraine Vaughn, 2019-08 10:30:00 AM, [address] [place] [address], [phone], Provider Name:Jackeline Germain, 2020-08-14 02 :30:00 PM, [address] [place], [phone], Insurance Providers Payer Name Payer Address Payer Phone Insured Name Patient Relati onship to Insured Coverage Start Date Coverage End Date MEDICARE Part A and B [address] [facility] [id number] [phone] SARAVANAN DAUGHERTY DEPT OF [employer] [facility] [employer] [address] [facility] [id number] SARAVANAN DAUGHERTY [address] [facility] [place] [address] [address] [facility] [address] SARAVANAN DAUGHERTY self
--- OUTSIDE RECORDS SUMMARY | 2020-08-29 14:12 | CCD ---
Author Author [facility] Organization [facility] Address Unknown Phone Unavailable Care Team Providers Care Hand Presser Name Role Phone Aylin Thayer JR, MD Unavailable Unavailable Aylin Thayer JR, MD Unavailable Unavailable Aylin Thayer JR, MD Unavailable Unavailable Aylin Thayer JR, MD Unavailable Unavailable Aylin Thayer JR, MD Unavailable Unavailable Aylin Thayer JR, MD Unavailable Unavailable Aylin Thayer JR, MD Unavailable Unavailable Aylin Thayer JR, MD Unavailable Unavailable Aylin Thayer JR, MD Unavailable Unavailable Aylin Thayer JR, MD Unavailable Unavailable Aylin Thayer JR, MD Unavailable Unavailable Aylin Thayer JR, MD Unavailable Unavailable Aylin Thayer JR, MD Unavailable Unavailable Aylin Thayer JR, MD Unavailable Unavailable Aylin Thayer JR, MD Unavailable Unavailable Aylin Thayer JR, MD Unavailable Unavailable Aylin Thayer JR, MD Unavailable Unavailable Aylin Thayer JR, MD Unavailable Unavailable Aylin Thayer JR, MD Unavailable Unavailable Aylin Thayer JR, MD Unavailable Unavailable Aylin Thayer JR, MD Unavailable Unavailable Aylin Thayer JR, MD Unavailable Unavailable Aylin Thayer JR, MD Unavailable Unavailable Aylin Thayer JR, MD Unavailable Unavailable Aylin Thayer JR, MD Unavailable Unavailable Aylin Thayer JR, MD Unavailable Unavailable Aylin Thayer JR, MD Unavailable Unavailable Aylin Thayer JR, MD Unavailable Unavailable Aylin Thayer JR, MD Unavailable Unavailable Aylin Thayer JR, MD Unavailable Unavailable Aylin Thayer JR, MD Unavailable Unavailable Aylin Thayer JR, MD Unavailable Unavailable Aylin Thayer JR, MD Unavailable Unavailable Aylin Thayer JR, MD Unavailable Unavailable Aylin Thayer JR, MD Unavailable Unavailable Aylin Thayer JR, MD Unavailable Unavailable Aylin Thayer JR, MD Unavailable Unavailable Aylin Thayer JR, MD Unavailable Unavailable Aylin Thayer JR, MD Unavailable Unavailable Aylin Thayer JR, MD Unavailable Unavailable Aylin Thayer JR, MD Unavailable Unavailable Aylin Thayer JR, MD Unavailable Unavailable Aylin Thayer JR, MD Unavailable Unavailable Aylin Thayer JR, MD Unavailable Unavailable Aylin Thayer JR, MD Unavailable Unavailable Aylin Thayer JR, MD Unavailable Unavailable Aylin Thayer JR, MD Unavailable Unavailable Aylin Thayer JR, MD Unavailable Unavailable Aylin Thayer JR, MD Unavailable Unavailable Aylin Thayer JR, MD Unavailable Unavailable Aylin Thayer JR, MD Unavailable Unavailable Aylin Thayer JR, MD Unavailable Unavailable Aylin Thayer JR, MD Unavailable Unavailable Aylin Thayer JR, MD Unavailable Unavailable Aylin Thayer JR, MD Unavailable Unavailable ANTECOL, Shukri CLAYTON MD Unavailable Unavailable ANTECOL, Shukri CLAYTON MD Unavailable Unavailable ANTECOL, Shukri CLAYTON MD Unavailable Unavailable ANTECOL, Shukri CLAYTON MD Unavailable Unavailable ANTECOL, Shukri CLAYTON MD Unavailable Unavailable ANTECOL, Shukri CLAYTON MD Unavailable Unavailable ANTECOL, Shukri CLAYTON MD Unavailable Unavailable ANTECOL, Shukri CLAYTON MD Unavailable Unavailable ANTECOL, Shukri CLAYTON MD Unavailable Unavailable ANTECOL, Shukri CLAYTON MD Unavailable Unavailable ANTECOL, Shukri CLAYTON MD Unavailable Unavailable ANTECOL, Shukri CLAYTON MD Unavailable Unavailable ANTECOL, Shukri CLAYTON MD Unavailable Unavailable ANTECOL, Shukri CLAYTON MD Unavailable Unavailable ANTECOL, Shukri CLAYTON MD Unavailable Unavailable ANTECOL, Shukri CLAYTON MD Unavailable Unavailable ANTECOL, Shukri CLAYTON MD Unavailable Unavailable ANTECOL, Shukri CLAYTON MD Unavailable Unavailable ANTECOL, Shukri CLAYTON MD Unavailable Unavailable ANTECOL, Shukri CLAYTON MD Unavailable Unavailable ANTECOL, Shukri CLAYTON MD Unavailable Unavailable ANTECOL, Shukri CLAYTON MD Unavailable Unavailable ANTECOL, Shukri CLAYTON MD Unavailable Unavailable ANTECOL, Shukri CLAYTON MD Unavailable Unavailable ANTECOL, Shukri CLAYTON MD Unavailable Unavailable ANTECOL, Shukri CLAYTON MD Unavailable Unavailable ANTECOL, Shukri CLAYTON MD Unavailable Unavailable ANTECOL, Shukri CLAYTON MD Unavailable Unavailable ANTECOL, Shukri CLAYTON MD Unavailable Unavailable ANTECOL, Shukri CLAYTON MD Unavailable Unavailable ANTECOL, Shukri CLAYTON MD Unavailable Unavailable ANTECOL, Shukri CLAYTON MD Unavailable Unavailable ANTECOL, Shukri CLAYTON MD Unavailable Unavailable ANTECOL, Shukri CLAYTON MD Unavailable Unavailable ANTECOL, Shukri CLAYTON MD Unavailable Unavailable ANTECOL, Shukri CLAYTON MD Unavailable Unavailable ANTECOL, Shukri CLAYTON MD Unavailable Unavailable ANTECOL, Shukri CLAYTON MD Unavailable Unavailable ANTECOL, Shukri CLAYTON MD Unavailable Unavailable ANTECOL, Shukri CLAYTON MD Unavailable Unavailable ANTECOL, Shukri CLAYTON MD Unavailable Unavailable ANTECOL, Shukri CLAYTON MD Unavailable Unavailable ANTECOL, Shukri CLAYTON MD Unavailable Unavailable ANTECOL, Shukri CLAYTON MD Unavailable Unavailable ANTECOL, Shukri CLAYTON MD Unavailable Unavailable ANTECOL, Shukri CLAYTON MD Unavailable Unavailable ANTECOL, Shukri CLAYTON MD Unavailable Unavailable ANTECOL, Shukri CLAYTON MD Unavailable Unavailable ANTECOL, Shukri CLAYTON MD Unavailable Unavailable ANTECOL, Shukri CLAYTON MD Unavailable Unavailable ANTECOL, Shukri CLAYTON MD Unavailable Unavailable ANTECOL, Shukri CLAYTON MD Unavailable Unavailable ANTECOL, Shukri CLAYTON MD Unavailable Unavailable ANTECOL, Shukri CLAYTON MD Unavailable Unavailable ANTECOL, Shukri CLAYTON MD Unavailable Unavailable Chacho COE MD Unavailable Unavailable Chacho COE MD Unavailable Unavailable Chacho COE MD Unavailable Unavailable Chacho COE MD Unavailable Unavailable Chacho COE MD Unavailable Unavailable Chacho COE MD Unavailable Unavailable Chacho COE MD Unavailable Unavailable Chacho COE MD Unavailable Unavailable Chacho COE MD Unavailable Unavailable Chacho COE MD Unavailable Unavailable Chacho COE MD Unavailable Unavailable Chacho COE MD Unavailable Unavailable Chacho COE MD Unavailable Unavailable Chacho COE MD Unavailable Unavailable Chacho COE MD Unavailable Unavailable Chacho COE MD Unavailable Unavailable Chacho COE MD Unavailable Unavailable Chacho COE MD Unavailable Unavailable Chacho COE MD Unavailable Unavailable SARAVANAN, P LINUS MD Unavailable Unavailable SARAVANAN, Chacho BARRIGA MD Unavailable Unavailable SARAVANAN, P LINUS MD Unavailable Unavailable SARAVANAN, P LINUS MD Unavailable Unavailable SARAVANAN, P LINUS MD Unavailable Unavailable SARAVANAN, P LINUS MD Unavailable Unavailable SARAVANAN, P LINUS MD Unavailable Unavailable SARAVANAN, Chacho BARRIGA MD Unavailable Unavailable SARAVANAN, P LINUS MD Unavailable Unavailable SARAVANAN, P LINUS MD Unavailable Unavailable SARAVANAN, P LINUS MD Unavailable Unavailable SARAVANAN, P LINUS MD Unavailable Unavailable SARAVANAN, P LINUS MD Unavailable Unavailable SARAVANAN, P LINUS MD Unavailable Unavailable SARAVANAN, P LINUS MD Unavailable Unavailable SARAVANAN, P LINUS MD Unavailable Unavailable SARAVANAN, Chacho BARRIGA MD Unavailable Unavailable SARAVANAN, Chacho BARRIGA MD Unavailable Unavailable SARAVANAN, Chacho BARRIGA MD Unavailable Unavailable SARAVANAN, Chacho BARRIGA MD Unavailable Unavailable SARAVANAN, Chacho BARRIGA MD Unavailable Unavailable SARAVANAN, Chacho BARRIGA MD Unavailable Unavailable SARAVANAN, Chacho BARRIGA MD Unavailable Unavailable SARAVANAN, Chacho BARRIGA MD Unavailable Unavailable SARAVANAN, Chacho BARRIGA MD Unavailable Unavailable SARAVANAN, Chacho BARRIGA MD Unavailable Unavailable SARAVANAN, Chacho BARRIGA MD Unavailable Unavailable SARAVANAN, Chacho BARRIGA MD Unavailable Unavailable SARAVANAN, Chacho BARRIGA MD Unavailable Unavailable SARAVANAN, Chacho BARRIGA MD Unavailable Unavailable SARAVANAN, Chacho BARRIGA MD Unavailable Unavailable SARAVANAN, Chacho BARRIGA MD Unavailable Unavailable SARAVANAN, Chacho BARRIGA MD Unavailable Unavailable SARAVANAN, Chacho BARRIGA MD Unavailable Unavailable SARAVANAN, Chacho BARRIGA MD Unavailable Unavailable SARAVANAN, Chacho BARRIGA MD Unavailable Unavailable SARAVANAN, Chacho BARRIGA MD Unavailable Unavailable SARAVANANChacho MD Unavailable Unavailable SARAVANANChacho MD Unavailable Unavailable SARAVANAN, Chacho BARRIGA MD Unavailable Unavailable SARAVANAN, Chacho BARRIGA MD Unavailable Unavailable SARAVANAN, Chacho BARRIGA MD Unavailable Unavailable SARAVANAN, Chacho BARRIGA MD Unavailable Unavailable SARAVANAN, Chacho BARRIGA MD Unavailable Unavailable SARAVANAN, Chacho ABRRIGA MD Unavailable Unavailable SARAVANAN, Chacho BARRIGA MD Unavailable Unavailable SARAVANAN, Chacho BARRIGA MD Unavailable Unavailable SARAVANAN, Chacho BARRIGA MD Unavailable Unavailable SARAVANAN, Chacho BARRIGA MD Unavailable Unavailable SARAVANAN, Chacho BARRIGA MD Unavailable Unavailable SARAVANAN, P LINUS WEBER Unavailable Unavailable SARAVANAN, P LINUS MD Unavailable Unavailable SARAVANAN, P LINUS MD Unavailable Unavailable SARAVANAN, P LINUS WEBER Unavailable Unavailable SARAVANAN, P LINUS MD Unavailable Unavailable SARAVANAN, P LINUS MD Unavailable Unavailable SARAVANAN, P LINUS MD Unavailable Unavailable SARAVANAN, P LINUS MD Unavailable Unavailable SARAVANAN, P LINUS MD Unavailable Unavailable SARAVANAN, P LINUS MD Unavailable Unavailable SARAVANAN, P LINUS MD Unavailable Unavailable SARAVANAN, P LINUS MD Unavailable Unavailable SARAVANAN, P LINUS MD Unavailable Unavailable SARAVANAN, P LINUS MD Unavailable Unavailable SARAVANAN, P LINUS MD Unavailable Unavailable SARAVANAN, P LINUS MD Unavailable Unavailable SARAVANAN, P LINUS MD Unavailable Unavailable SARAVANAN, P LINUS MD Unavailable Unavailable SARAVANAN, P LINUS MD Unavailable Unavailable SARAVANAN, P LINUS MD Unavailable Unavailable SARAVANAN, P LINUS MD Unavailable Unavailable SARAVANAN, P LINUS MD Unavailable Unavailable SARAVANAN, P LINUS MD Unavailable Unavailable SARAVANAN, P LINUS MD Unavailable Unavailable SARAVANAN, P LINUS MD Unavailable Unavailable Swatsworth, R Loraine PA Unavailable Unavailable Swatsworth, R Loraine PA Unavailable Unavailable Swatsworth, R Loraine PA Unavailable Unavailable Swatsworth, R Loraine PA Unavailable Unavailable Swatsworth, R Loraine PA Unavailable Unavailable Swatsworth, R Loraine PA Unavailable Unavailable Swatsworth, R Loraine PA Unavailable Unavailable Swatsworth, R Loraine PA Unavailable Unavailable Swatsworth, R Loraine PA Unavailable Unavailable Swatsworth, R Loraine PA Unavailable Unavailable Swatsworth, R Loraine PA Unavailable Unavailable Swatsworth, R Loriane PA Unavailable Unavailable Swatsworth, R Loraine PA Unavailable Unavailable Swatsworth, R Loraine PA Unavailable Unavailable Swatsworth, R Loraine PA Unavailable Unavailable Swatsworth, R Loraine PA Unavailable Unavailable Swatsworth, R Loraine PA Unavailable Unavailable Swatsworth, R Loraine PA Unavailable Unavailable Swatsworth, R Loraine PA Unavailable Unavailable Swatsworth, R Loraine PA Unavailable Unavailable Swatsworth, R Loraine PA Unavailable Unavailable Swatsworth, R Loraine PA Unavailable Unavailable Swatsworth, R Loraine PA Unavailable Unavailable Swatsworth, R Loraine PA Unavailable Unavailable Swatsworth, R Loraine PA Unavailable Unavailable Swatsworth, R Loraine PA Unavailable Unavailable Swatsworth, R Loraine PA Unavailable Unavailable Swatsworth, R Loraine PA Unavailable Unavailable Swatsworth, R Loraine PA Unavailable Unavailable Swatsworth, R Loraine PA Unavailable Unavailable Swatsworth, R Loraine PA Unavailable Unavailable Swatsworth, R Loraine PA Unavailable Unavailable Swatsworth, R Loraine PA Unavailable Unavailable Swatsworth, R Loraine PA Unavailable Unavailable Swatsworth, R Loraine PA Unavailable Unavailable Swatsworth, R Loraine PA Unavailable Unavailable Swatsworth, R Loraine PA Unavailable Unavailable Swatsworth, R Loraine PA Unavailable Unavailable Swatsworth, R Loraine PA Unavailable Unavailable Swatsworth, R Loraine PA Unavailable Unavailable Swatsworth, R Loraine PA Unavailable Unavailable Swatsworth, R Loraine PA Unavailable Unavailable Swatsworth, R Loraine PA Unavailable Unavailable Swatsworth, R Loraine PA Unavailable Unavailable Swatsworth, R Loraine PA Unavailable Unavailable Swatsworth, R Loraine PA Unavailable Unavailable Swatsworth, R Loraine PA Unavailable Unavailable Swatsworth, R Loraine PA Unavailable Unavailable AMIRA DONNELLY MD Unavailable Unavailable AMIRA DONNELLY MD Unavailable Unavailable AMIRA DONNELLY MD Unavailable Unavailable AMIRA DONNELLY MD Unavailable Unavailable AMIRA DONNELLY MD Unavailable Unavailable AMIRA DONNELLY MD Unavailable Unavailable AMIRA DONNELLY MD Unavailable Unavailable AMIRA DONNELLY MD Unavailable Unavailable AMIRA DONNELLY MD Unavailable Unavailable AMIRA DONNELLY MD Unavailable Unavailable AMIRA DONNELLY MD Unavailable Unavailable AMIRA DONNELLY MD Unavailable Unavailable AMIRA DONNELLY MD Unavailable Unavailable AMIRA DONNELLY MD Unavailable Unavailable AMIRA DONNELLY MD Unavailable Unavailable AMIRA DONNELLY MD Unavailable Unavailable DONNELLYAMIRA MARX MD Unavailable Unavailable DONNELLYAMIRA MARX MD Unavailable Unavailable DONNELLYAMIRA MARX MD Unavailable Unavailable DONNELLYAMIRA MARX MD Unavailable Unavailable AMIRA DONNELLY MD Unavailable Unavailable AMIRA DONNELLY MD Unavailable Unavailable AMIRA DONNELLY MD Unavailable Unavailable AMIRA DONNELLY MD Unavailable Unavailable AMIRA DONNELLY MD Unavailable Unavailable DONNELLYAMIRA MARX MD Unavailable Unavailable DONNELLYAMIRA MARX MD Unavailable Unavailable DONNELLYAMIRA MARX MD Unavailable Unavailable DONNELLYAIMRA MARX MD Unavailable Unavailable DONNELLYAMIRA MARX MD Unavailable Unavailable DONNELLYAMIRA MARX MD Unavailable Unavailable DONNELLYAMIRA MARX MD Unavailable Unavailable DONNELLYAMIRA MARX MD Unavailable Unavailable DONNELLYAMIRA MARX MD Unavailable Unavailable DONNELLYAMIRA MARX MD Unavailable Unavailable AMIRA DONNELLY MD Unavailable Unavailable AMIRA DONNELLY MD Unavailable Unavailable AMIRA DONNELLY MD Unavailable Unavailable AMIRA DONNELLY MD Unavailable Unavailable AMIRA DONNELLY MD Unavailable Unavailable AMIRA DONNELLY MD Unavailable Unavailable AMIRA DONNELLY MD Unavailable Unavailable AMIRA DONNELLY MD Unavailable Unavailable AMIRA DONNELLY MD Unavailable Unavailable AMIRA DONNELLY MD Unavailable Unavailable AMIRA DONNELLY MD Unavailable Unavailable AMIRA DONNELLY MD Unavailable Unavailable AMIRA DONNELLY MD Unavailable Unavailable AMIRA DONNELLY MD Unavailable Unavailable AMIRA DONNELLY MD Unavailable Unavailable AMIRA DONNELLY MD Unavailable Unavailable AMIRA DONNELLY MD Unavailable Unavailable AMIRA DONNELLY MD Unavailable Unavailable AMIRA DONNELLY MD Unavailable Unavailable AMIRA DONNELLY MD Unavailable Unavailable AMIRA DONNELLY MD Unavailable Unavailable AMIRA DONNELLY MD Unavailable Unavailable AMIRA DONNELLY MD Unavailable Unavailable AMIRA DONNELLY MD Unavailable Unavailable AMIRA DONNELLY MD Unavailable Unavailable AMIRA DONNELLY MD Unavailable Unavailable AMIRA DONNELLY MD Unavailable Unavailable AMIRA DONNELLY MD Unavailable Unavailable AMIRA DONNELLY MD Unavailable Unavailable AMIRA DONNELLY MD Unavailable Unavailable AMIRA DONNELLY MD Unavailable Unavailable AMIRA DONNELLY MD Unavailable Unavailable AMIRA DONNELLY MD Unavailable Unavailable AMIRA DONNELLY MD Unavailable Unavailable MARTINEZ, J Renee ANP Unavailable Unavailable MARTINEZ, J Renee ANP Unavailable Unavailable MARTINEZ, J Renee ANP Unavailable Unavailable MARTINEZ, J Renee ANP Unavailable Unavailable MARTINEZ, J Renee ANP Unavailable Unavailable MARTINEZ, J Renee ANP Unavailable Unavailable MARTINEZ, J Renee ANP Unavailable Unavailable MARTINEZ, J Renee ANP Unavailable Unavailable MARTINEZ, J Renee ANP Unavailable Unavailable MARTINEZ, J Renee ANP Unavailable Unavailable MARTINEZ, J Renee ANP Unavailable Unavailable MARTINEZ, J Renee ANP Unavailable Unavailable MARTINEZ, J Renee ANP Unavailable Unavailable MARTINEZ, J Renee ANP Unavailable Unavailable MARTINEZ, J Renee ANP Unavailable Unavailable MARTINEZ, J Renee ANP Unavailable Unavailable MARTINEZ, J Renee ANP Unavailable Unavailable MARTINEZ, J Renee ANP Unavailable Unavailable MARTINEZ, J Renee ANP Unavailable Unavailable MARTINEZ, J Renee ANP Unavailable Unavailable MARTINEZ, J Renee ANP Unavailable Unavailable MARTINEZ, J Renee ANP Unavailable Unavailable MARTINEZ, J Renee ANP Unavailable Unavailable MARTINEZ, J Renee ANP Unavailable Unavailable MARTINEZ, J Renee ANP Unavailable Unavailable MARTINEZ, J Renee ANP Unavailable Unavailable MARTINEZ, J Renee ANP Unavailable Unavailable MARTINEZ, J Renee ANP Unavailable Unavailable MARTINEZ, J Renee ANP Unavailable Unavailable MARTINEZ, J Renee ANP Unavailable Unavailable MARTINEZ, J Renee ANP Unavailable Unavailable MARTINEZ, J Renee ANP Unavailable Unavailable MARTINEZ, J Renee ANP Unavailable Unavailable MARTINEZ, J Renee ANP Unavailable Unavailable MARTINEZ, J Renee ANP Unavailable Unavailable MARTINEZ, J Renee ANP Unavailable Unavailable MARTINEZ, J Renee ANP Unavailable Unavailable MARTINEZ, J Renee ANP Unavailable Unavailable MARTINEZ, J Renee ANP Unavailable Unavailable MARTINEZ, J Renee ANP Unavailable Unavailable MARTINEZ, J Renee ANP Unavailable Unavailable MARTINEZ, J Renee ANP Unavailable Unavailable MARTINEZ, J Renee ANP Unavailable Unavailable MARTINEZ, J Renee ANP Unavailable Unavailable MARTINEZ, J Renee ANP Unavailable Unavailable MARTINEZ, J Renee ANP Unavailable Unavailable MARTINEZ, J Renee ANP Unavailable Unavailable MARTINEZ, J Renee ANP Unavailable Unavailable MARTINEZ, J Renee ANP Unavailable Unavailable MARTINEZ, J Renee ANP Unavailable Unavailable MARTINEZ, J Renee ANP Unavailable Unavailable MARTINEZ, J Renee ANP Unavailable Unavailable MARTINEZ, J Renee ANP Unavailable Unavailable MARTINEZ, J Renee ANP Unavailable Unavailable MARTINEZ, J Renee ANP Unavailable Unavailable MARTINEZ, J Renee ANP Unavailable Unavailable MARTINEZ, J Renee ANP Unavailable Unavailable MARTINEZ, J Renee ANP Unavailable Unavailable MARTINEZ, J Renee ANP Unavailable Unavailable MARTINEZ, J Renee ANP Unavailable Unavailable MARTINEZ, J Renee ANP Unavailable Unavailable MARTINEZ, J Renee ANP Unavailable Unavailable MARTINEZ, J Renee ANP Unavailable Unavailable MARTINEZ, J Renee ANP Unavailable Unavailable MARTINEZ, J Renee ANP Unavailable Unavailable MARTINEZ, J Renee ANP Unavailable Unavailable Geri KENDRICK MD Unavailable Unavailable Geri KENDRICK MD Unavailable Unavailable Geri KENDRICK MD Unavailable Unavailable Geri KENDRICK MD Unavailable Unavailable Geri KENDRICK MD Unavailable Unavailable Geri KENDRICK MD Unavailable Unavailable Geri KENDRICK MD Unavailable Unavailable Geri KENDRICK MD Unavailable Unavailable Geri KENDRICK MD Unavailable Unavailable Geri KENDRICK MD Unavailable Unavailable Geri KENDRICK MD Unavailable Unavailable Geri KENDRICK MD Unavailable Unavailable Geri KENDRICK MD Unavailable Unavailable Geri KENDRICK MD Unavailable Unavailable Geri KENDRICK MD Unavailable Unavailable Geri KENDRICK MD Unavailable Unavailable KENDRICK, Geri VALENTINO MD Unavailable Unavailable KENDRICK, Geri VALENTINO MD Unavailable Unavailable KENDRICK, Geri VALENTINO MD Unavailable Unavailable KENDRICK, Geri VALENTINO MD Unavailable Unavailable KENDRICK, Geri VALENTINO MD Unavailable Unavailable KENDRICK, Geri VALENTINO MD Unavailable Unavailable KENDRICK, Geri VALENTINO MD Unavailable Unavailable KENDRICK, Geri VALENTINO MD Unavailable Unavailable KENDRICK, Geri VALENTINO MD Unavailable Unavailable KENDRICK, Geri VALENTINO MD Unavailable Unavailable KENDRICK, Geri VALENTINO MD Unavailable Unavailable KENDRICK, Geri VALENTINO MD Unavailable Unavailable KENDRICK, Geri VALENTINO MD Unavailable Unavailable KENDRICK, Geri VALENTINO MD Unavailable Unavailable KENDRICK, Geri VALENTINO MD Unavailable Unavailable KENDRICK, Geri VALENTINO MD Unavailable Unavailable KENDRICK, Geri VALENTINO MD Unavailable Unavailable KENDRICK, Geri VALENTINO MD Unavailable Unavailable KENDRICK, Geri VALENTINO MD Unavailable Unavailable KENDRICK, Geri VALENTINO MD Unavailable Unavailable KENDRICK, Geri VALENTINO MD Unavailable Unavailable KENDRICK, Geri VALENTINO MD Unavailable Unavailable KENDRICK, Geri VALENTINO MD Unavailable Unavailable KENDRICK, Geri VALENTINO MD Unavailable Unavailable KENDRICK, Geri VALENTINO MD Unavailable Unavailable KENDRICK, Geri VALENTINO MD Unavailable Unavailable KENDRICK, Geri VALENTINO MD Unavailable Unavailable KENDRICK, Geri VALENITNO MD Unavailable Unavailable KENDRICK, Geri VALENTINO MD Unavailable Unavailable KENDRICK, Geri VALENTINO MD Unavailable Unavailable KENDRICK, Geri VALENTINO MD Unavailable Unavailable KENDRICK, Geri VALENTINO MD Unavailable Unavailable KENDRICK, Geri VALENTINO MD Unavailable Unavailable KENDRICK, Geri VALENTINO MD Unavailable Unavailable KENDRICK, Geri VALENTINO MD Unavailable Unavailable KENDRICK, Geri VALENTINO MD Unavailable Unavailable KENDRICK, Geri VALENTINO MD Unavailable Unavailable KENDRICK, Geri VALENTINO MD Unavailable Unavailable KENDRICK, Geri VALENTINO MD Unavailable Unavailable KENDRICK, Geri VALENTINO MD Unavailable Unavailable KENDRICK, Geri VALENTINO MD Unavailable Unavailable KENDRICK, Geri VALENTINO MD Unavailable Unavailable KENDRICK, Geri VALENTINO MD Unavailable Unavailable KENDRICK, Geri VALENTINO MD Unavailable Unavailable KENDRICK, Geri VALENTINO MD Unavailable Unavailable KENDRICK, Geri VALENTINO MD Unavailable Unavailable KENDRICK, Geri VALENTINO MD Unavailable Unavailable KENDRICK, Geri VALENTINO MD Unavailable Unavailable KENDRICK, Geri VALENTINO MD Unavailable Unavailable KENDRICK, Geri VALENTINO MD Unavailable Unavailable KENDRICK, Geri VALENTINO MD Unavailable Unavailable KENDRICK, Geri VALENTINO MD Unavailable Unavailable KENDRICK, Geri VALENTINO MD Unavailable Unavailable KENDRICK, Geri VALENTINO MD Unavailable Unavailable KENDRICK, Geri VALENTINO MD Unavailable Unavailable KENDRICK, Geri VALENTINO MD Unavailable Unavailable KENDRICK, Geri VALENTINO MD Unavailable Unavailable KENDRICK, Geri VALENTINO MD Unavailable Unavailable KENDRICK, Geri VALENTINO MD Unavailable Unavailable KENDRICK, Geri VALENTINO MD Unavailable Unavailable KENDRICK, Geri VALENTINO MD Unavailable Unavailable KENDRICK, Geri VALENTINO MD Unavailable Unavailable KENDRICK, T CHICHO MD Unavailable Unavailable KENDRICK, T CHICHO MD Unavailable Unavailable KENDRICK, T CHICHO MD Unavailable Unavailable KENDRICK, T CHICHO MD Unavailable Unavailable KENDRICK, T CHICHO MD Unavailable Unavailable KENDRICK, T CHICHO MD Unavailable Unavailable KENDRICK, T CHICHO MD Unavailable Unavailable KENDRICK, T CHICHO MD Unavailable Unavailable KENDRICK, T CHICHO MD Unavailable Unavailable KENDRICK, T CHICHO MD Unavailable Unavailable KENDRICK, T CHICHO MD Unavailable Unavailable KENDRICK, T CHICHO MD Unavailable Unavailable KENDRICK, T CHICHO MD Unavailable Unavailable KENDRICK, T CHICHO MD Unavailable Unavailable KENDRICK, T CHICHO MD Unavailable Unavailable KENDRICK, T CHICHO MD Unavailable Unavailable KENDRICK, T CHICHO MD Unavailable Unavailable KENDRICK, T CHICHO MD Unavailable Unavailable KENDRICK, T CHICHO MD Unavailable Unavailable KENDRICK, T CHICHO MD Unavailable Unavailable KENDRICK, T CHICHO MD Unavailable Unavailable KENDRICK, T CHICHO MD Unavailable Unavailable KENDRICK, T CHICHO MD Unavailable Unavailable KENDRICK, T CHICHO MD Unavailable Unavailable KENDRICK, T CHICHO MD Unavailable Unavailable KENDRICK, T CHICHO MD Unavailable Unavailable KENDRICK, T CHICHO MD Unavailable Unavailable KENDRICK, T CHICHO MD Unavailable Unavailable KENDRICK, T CHICHO MD Unavailable Unavailable KENDRICK, T CHICHO MD Unavailable Unavailable KENDRICK, T CHICHO MD Unavailable Unavailable KENDRICK, T CHICHO MD Unavailable Unavailable KENDRICK, T CHICHO MD Unavailable Unavailable KENDRICK, T CHICHO MD Unavailable Unavailable KENDRICK, T CHICHO MD Unavailable Unavailable KENDRICK, T CHICHO MD Unavailable Unavailable Re-disclosure Warning The records that you are about to access may contain information from federally-assisted alcohol or drug abuse programs. If such information is present, then the following federally mandated warning applies: This information has been disclosed to you from records protected by federal confidentiality rules (42 CFR part 2). The federal rules prohibit you from making any further disclosure of this information unless further disclosure is expressly permitted by the written consent of the person to whom it pertains or as otherwise permitted by 42 CFR part 2. A general authorization for the release of medical or other information is NOT sufficient for this purpose. The Federal rules restrict any use of the information to criminally investigate or prosecute any alcohol or drug abuse patient.The records that you are about to access may contain highly sensitive health information, the redisclosure of which is protected by Article 27-F of the [facility] Public Health law. If you continue you may have access to information: Regarding HIV / AIDS; Provided by facilities licensed or operated by the [facility] Office of Mental Health; or Provided by the [facility] Office for People With Developmental Disabilities. If such information is present, then the following [facility] mandated warning applies: This information has been disclosed to you from confidential records which are protected by state law. State law prohibits you from making any further disclosure of this information without the specific written consent of the person to whom it pertains, or as otherwise permitted by law. Any unauthorized further disclosure in violation of state law may result in a fine or senior living sentence or both. A general authorization for the release of medical or other information is NOT sufficient authorization for further disc losure. Allergies and Adverse Reactions Type Description Substance Reaction Status Data Source(s ) Drug allergy Levaquin Drug allergy facial swelling Active eCW1 ([facility]) Drug allergy Lyrica pregabalin itching Active eCW1 ([facility]) NSAIDS NSAIDS NSAIDS abdominal pain, GI ulcer Active eCW1 ([facility]) lactose lactose lactose diarrhea, abdominal pain Active eCW1 ([facility]) NSAIDS NSAIDS NSAIDS abdominal pain, GI ulcer Active eCW1 ([facility]) lactose lactose lactose diarrhea, abdominal pain Active eCW1 ([facility]) Levaquin Levaquin Levofloxacin 750 MG Oral Tablet [Levaquin ] facial swelling Active eCW1 ([facility]) NSAIDS NSAIDS NSAIDS abdominal pain, GI ulcer Active eCW1 ([facility]) lactose lactose lactose diarrhea, abdominal pain Active eCW1 ([facility]) Family History Family Member Name Family Member Gender Family Member Status Date o f Status Description Data Source(s) Unknown Unknown Problem MEDENT ([facility] ) Unknown Unknown Problem MEDENT ([facility] ) Unknown Unknown Problem MEDENT ([facility] ) Encounters Encounter Providers Location Date Indications Data Source(s ) [place] [address] [facility] [address] 08/16/2020 12:00:00 AM EST eCW1 ([facility]) [place] [address] [facility] [address] 08/16/2020 12:00:00 AM EST eCW1 ([facility]) [place] [address] [facility] [address] 08/13/2020 12:00:00 AM EST eCW1 ([facility]) [place] [address] [facility] [address] 07/17/2020 12:00:00 AM EST eCW1 ([facility]) [place] [address] [facility] [place] [address] 07/11/2020 12:00:00 AM EST eCW1 ([facility]) [place] [address] [facility] [address] 06/21/2020 12:00:00 AM EST eCW1 ([facility]) [place] [address] [facility] [address] 06/11/2020 12:00:00 AM EST eCW1 ([facility]) [place] [address] [facility] [address] 06/07/2020 12:00:00 AM EDT eCW1 ([facility]) ( [facility]) [facility] [address] [place] [address] 06/05/2020 12:00:00 AM EDT eCW1 ([facility]) [place] [address] [facility] [address] 05/29/2020 12:00:00 AM EDT eCW1 ([facility]) [place] [address] [facility] [address] 05/29/2020 12:00:00 AM EDT eCW1 ([facility]) [place] [address] [facility] [address] 05/25/2020 12:00:00 AM EDT eCW1 ([facility]) Office Visit Attender: FORREST LESLIE MD Main Office 05/23/2020 03: 22:00 PM EDT MEDENT ([facility]) [place] [address] [facility] [address] 05/21/2020 12:00:00 AM EDT eCW1 ([facility]) [place] [address] [facility] [address] 05/16/2020 12:00:00 AM EDT eCW1 ([facility]) Outpatient Attender: FORREST LESLIE MD Main Office 05/15/2020 10:00:00 AM EDT MEDENT ([facility]) Outpatient [address] [facility] [address] 05/15/2020 12:00:00 AM EDT eCW1 ([facility]) [place] [address] [facility] [address] 05/09/2020 12:00:00 AM EDT eCW1 ([facility]) Office Visit Attender: FORREST LESLIE MD Main Office 05/07/2020 04: 07:00 PM EDT MEDENT ([facility]) Outpatient Attender: Kevin Sam/Telma/Nilay/Rosa Elena song 05/02/2020 01:10:00 PM EDT MEDENT ([facility]) Office Visit Attender: FORREST LESLIE MD Main Office 04/04/2020 03: 46:00 PM EDT MEDENT ([facility]) [facility] [place] [address] [facility] [address] 03/29/2020 12:00:00 AM EDT eCW1 ([facility]) [facility] [place] [address] [facility] [address] 03/20/2020 12:00:00 AM EDT eCW1 ([facility]) Office Visit Attender: FORREST LESLIE MD Main Office 03/02/2020 01: 22:00 PM EDT MEDENT ([facility]) [place] [address] [facility] [address] 02/20/2020 12:00:00 AM EDT eCW1 ([facility]) [place] [address] [facility] [address] 02/20/2020 12:00:00 AM EDT eCW1 ([facility]) Outpatient Attender: AMIRA DONNELLY MDRef errer: AMIRA DONNELLY MDConsultant: AMIRA DONNELLY MD 02/08/2020 02:08:00 PM EDT - 02/08/2020 02:18:00 PM EDT [facility] Unknown [address] [facility] [address] 01/30/2020 12:00:00 AM EDT eCW1 ([facility]) Outpatient [address] [place] [address] 01/17/2020 12:00:00 AM EDT eCW1 ([facility]) [facility] [address] [place] [address] 01/12/2020 12:00:00 AM EDT eCW1 ([facility]) [facility] [address] [place] [phone] 01/09/2020 12:00:00 AM EDT eCW1 ([facility]) [address] [address] 12/22/2019 12:00:00 AM EDT eCW1 ([facility]) [facility] [address] [place] [address] 12/12/2019 12:00:00 AM EDT eCW1 ([facility]) [facility] [address] [place] [address] 12/08/2019 12:00:00 AM EDT eCW1 ([facility]) [address] [address] 12/08/2019 12:00:00 AM EDT eCW1 ([facility]) Outpatient Attender: FORREST LESLIE MD Main Office 12/07/2019 08:00:00 AM EDT MEDENT ([facility]) [address] [address] 12/05/2019 12:00:00 AM EDT eCW1 ([facility]) [facility] [address] [place] [address] 12/01/2019 12:00:00 AM EDT eCW1 ([facility]) [facility] [address] [place] [address] 12/01/2019 12:00:00 AM EDT eCW1 ([facility]) Outpatient Attender: CHICHO KENDRICK MDReferrer: Loraine ELIZABETH 11/28/2019 08:43:58 AM EDT [facility] Outpatient Attender: CHICHO Maoerrer: Loraine ELIZABETH 11/28/2019 08:43:52 AM EDT [facility] [address] [address] 11/28/2019 12:00:00 AM EDT eCW1 ([facility]) [address] [address] 11/24/2019 12:00:00 AM EDT eCW1 ([facility]) Outpatient Referrer: Renee HENRIQUEZ ANP 11/22/2019 08:22:00 AM EDT [facility] [address] [place] [phone] 11/22/2019 12:00:00 AM EDT eCW1 ([facility]) [facility] [address] [place] [address] 11/22/2019 12:00:00 AM EDT eCW1 ([facility]) [facility] [address] [place] [address] 11/22/2019 12:00:00 AM EDT eCW1 ([facility]) [facility] [address] [place] [address] 11/08/2019 12:00:00 AM EDT eCW1 ([facility]) Outpatient Referrer: Renee HENRIQUEZ ANP 11/06/2019 11:00:00 AM EDT [facility] [address] [address] 11/03/2019 12:00:00 AM EDT eCW1 ([facility]) [facility] [address] [facility] [address] 10/31/2019 12:00:00 AM EDT eCW1 ([facility]) Outpatient Attender: LINUS COE MDAdmitter: LINUS Alberto MD [email or web address] 10/11/2019 06:07:00 AM EST - 10/11/2019 11:05:00 AM EST [facility] Patient discharged. [facility] [address] [place] [address] 10/11/2019 12:00:00 AM EST eCW1 ([facility]) [facility] [address] [address] 10/05/2019 12:00:00 AM EST eCW1 ([facility]) Outpatient Attender: FORREST LESLIE MD Main Office 09/28/2019 09:45:00 AM EST MEDENT ([facility]) [facility] [address] [address] 09/23/2019 12:00:00 AM EST eCW1 ([facility]) [address] [address] 09/20/2019 12:00:00 AM EST eCW1 ([facility]) Outpatient Attender: FORREST LESLIE MD Main Office 09/16/2019 06:45:00 AM EST MEDENT ([facility]) [facility] [address] [place] [address] [place] [address] 09/12/2019 12:00:00 AM EST eCW1 ([facility]) Outpatient Attender: FORREST LESLIE MD Main Office 09/09/2019 11:30:00 AM EST MEDENT ([facility]) [facility] [address] [place] [address] 08/31/2019 12:00:00 AM EST eCW1 ([facility] [place]) [facility] [address] [place] [phone] 08/24/2019 12:00:00 AM EST eCW1 ([facility]) [facility] [address] [place] [address] 08/23/2019 12:00:00 AM EST eCW1 ([facility]) [facility] [address] [place] [phone] 08/23/2019 12:00:00 AM EST eCW1 ([facility]) Outpatient Referrer: Renee LU 08/19/2019 12:53:00 PM EST [facility] [address] [place] [address] 08/19/2019 12:00:00 AM EST eCW1 ([facility] [place]) [facility] [address] [place] [phone] 08/19/2019 12:00:00 AM EST eCW1 ([facility]) [facility] [address] [place] [address], [place] [address] 08/18/2019 12:00:00 AM EST eCW1 ([facility]) [facility] [address] [place] [address] [place] [address] 08/15/2019 12:00:00 AM EST eCW1 ([facility]) [facility] [address] [place] [phone] 08/05/2019 12:00:00 AM EST eCW1 ([facility]) [address] [address] 07/22/2019 12:00:00 AM EST eCW1 ([facility]) [facility] [address] [place] [address] 07/11/2019 12:00:00 AM EST eCW1 ([facility]) [facility] [address] [place] [phone] 07/06/2019 12:00:00 AM EST eCW1 ([facility]) Immunizations Vaccine Date Status Description Data Source(s) Tdap 12/01/2019 05:09:00 PM EDT completed e CW1 ([facility]) Tdap 12/01/2019 05:09:00 PM EDT completed e CW1 ([facility]) Tdap 12/01/2019 05:09:00 PM EDT completed e CW1 ([facility]) Tdap 12/01/2019 05:09:00 PM EDT completed e CW1 ([facility]) Tdap 12/01/2019 05:09:00 PM EDT completed e CW1 ([facility]) Tdap 12/01/2019 05:09:00 PM EDT completed e CW1 ([facility]) Tdap 12/01/2019 05:09:00 PM EDT completed e CW1 ([facility]) Tdap 12/01/2019 05:09:00 PM EDT completed e CW1 ([facility]) Tdap 12/01/2019 05:09:00 PM EDT completed e CW1 ([facility]) Tdap 12/01/2019 05:09:00 PM EDT completed e CW1 ([facility]) Tdap 12/01/2019 05:09:00 PM EDT completed e CW1 ([facility]) Tdap 12/01/2019 05:09:00 PM EDT completed e CW1 ([facility]) Tdap 12/01/2019 05:09:00 PM EDT completed e CW1 ([facility]) Tdap 12/01/2019 05:09:00 PM EDT completed e CW1 ([facility]) Tdap 12/01/2019 05:09:00 PM EDT completed e CW1 ([facility]) Tdap 12/01/2019 05:09:00 PM EDT completed e CW1 ([facility]) Tdap 12/01/2019 05:09:00 PM EDT completed e CW1 ([facility]) Tdap 12/01/2019 05:09:00 PM EDT completed e CW1 ([facility]) Tdap 12/01/2019 05:09:00 PM EDT completed e CW1 ([facility]) Tdap 12/01/2019 05:09:00 PM EDT completed e CW1 ([facility]) Tdap 12/01/2019 05:09:00 PM EDT completed e CW1 ([facility]) MMR 12/01/2019 05:03:00 PM EDT completed e CW1 ([facility]) MMR 12/01/2019 05:03:00 PM EDT completed e CW1 ([facility]) MMR 12/01/2019 05:03:00 PM EDT completed e CW1 ([facility]) MMR 12/01/2019 05:03:00 PM EDT completed e CW1 ([facility]) MMR 12/01/2019 05:03:00 PM EDT completed e CW1 ([facility]) MMR 12/01/2019 05:03:00 PM EDT completed e CW1 ([facility]) MMR 12/01/2019 05:03:00 PM EDT completed e CW1 ([facility]) MMR 12/01/2019 05:03:00 PM EDT completed e CW1 ([facility]) MMR 12/01/2019 05:03:00 PM EDT completed e CW1 ([facility]) MMR 12/01/2019 05:03:00 PM EDT completed e CW1 ([facility]) MMR 12/01/2019 05:03:00 PM EDT completed e CW1 ([facility]) MMR 12/01/2019 05:03:00 PM EDT completed e CW1 ([facility]) MMR 12/01/2019 05:03:00 PM EDT completed e CW1 ([facility]) MMR 12/01/2019 05:03:00 PM EDT completed e CW1 ([facility]) MMR 12/01/2019 05:03:00 PM EDT completed e CW1 ([facility]) MMR 12/01/2019 05:03:00 PM EDT completed e CW1 ([facility]) MMR 12/01/2019 05:03:00 PM EDT completed e CW1 ([facility]) MMR 12/01/2019 05:03:00 PM EDT completed e CW1 ([facility]) MMR 12/01/2019 05:03:00 PM EDT completed e CW1 ([facility]) MMR 12/01/2019 05:03:00 PM EDT completed e CW1 ([facility]) MMR 12/01/2019 05:03:00 PM EDT completed e CW1 ([facility]) Pneumococcal conjugate PCV 13 12/01/2019 05:02:00 PM EDT completed eCW1 ([facility]) Pneumococcal conjugate PCV 13 12/01/2019 05:02:00 PM EDT completed eCW1 ([facility]) Pneumococcal conjugate PCV 13 12/01/2019 05:02:00 PM EDT completed eCW1 ([facility]) Pneumococcal conjugate PCV 13 12/01/2019 05:02:00 PM EDT completed eCW1 ([facility]) Pneumococcal conjugate PCV 13 12/01/2019 05:02:00 PM EDT completed eCW1 ([facility]) Pneumococcal conjugate PCV 13 12/01/2019 05:02:00 PM EDT completed eCW1 ([facility]) Pneumococcal conjugate PCV 13 12/01/2019 05:02:00 PM EDT completed eCW1 ([facility]) Pneumococcal conjugate PCV 13 12/01/2019 05:02:00 PM EDT completed eCW1 ([facility]) Pneumococcal conjugate PCV 13 12/01/2019 05:02:00 PM EDT completed eCW1 ([facility]) Pneumococcal conjugate PCV 13 12/01/2019 05:02:00 PM EDT completed eCW1 ([facility]) Pneumococcal conjugate PCV 13 12/01/2019 05:02:00 PM EDT completed eCW1 ([facility]) Pneumococcal conjugate PCV 13 12/01/2019 05:02:00 PM EDT completed eCW1 ([facility]) Pneumococcal conjugate PCV 13 12/01/2019 05:02:00 PM EDT completed eCW1 ([facility]) Pneumococcal conjugate PCV 13 12/01/2019 05:02:00 PM EDT completed eCW1 ([facility]) Pneumococcal conjugate PCV 13 12/01/2019 05:02:00 PM EDT completed eCW1 ([facility]) Pneumococcal conjugate PCV 13 12/01/2019 05:02:00 PM EDT completed eCW1 ([facility]) Pneumococcal conjugate PCV 13 12/01/2019 05:02:00 PM EDT completed eCW1 ([facility]) Pneumococcal conjugate PCV 13 12/01/2019 05:02:00 PM EDT completed eCW1 ([facility]) Pneumococcal conjugate PCV 13 12/01/2019 05:02:00 PM EDT completed eCW1 ([facility]) Pneumococcal conjugate PCV 13 12/01/2019 05:02:00 PM EDT completed eCW1 ([facility]) Pneumococcal conjugate PCV 13 12/01/2019 05:02:00 PM EDT completed eCW1 ([facility]) Medications Medication Brand Name Start Date Product Form Dose Route Admi nistrative Instructions Pharmacy Instructions Status Indications Reaction Description Data Source(s) OxyCODONE HCl ER 15 MG OxyCODONE HCl ER 15 MG 08/16/2020 12:00:00 A M EST 1.0 {tablet} active OxyCODONE HCl ER 15 MG eCW1 ([facility]) Hydromorphone Hydrochloride 2 MG Oral Tablet [facility]dromorp [place] HCl 2 MG Hydromorphone HCl 2 MG 08/16/2020 12:00:00 AM EST active Hydromorphone HCl 2 MG eCW1 ([facility]) Hydromorphone Hydrochloride 2 MG Oral Tablet [employer] [place] HCl 2 MG Hydromorphone HCl 2 MG 08/16/2020 12:00:00 AM EST active Hydromorphone HCl 2 MG eCW1 ([facility]) OxyCODONE HCl ER 15 MG OxyCODONE HCl ER 15 MG 08/16/2020 12:00:00 A M EST 1.0 {tablet} active OxyCODONE HCl ER 15 MG eCW1 ([facility]) OxyCODONE HCl ER 15 MG OxyCODONE HCl ER 15 MG 07/12/2020 12:00:00 A M EST 1.0 {tablet} active OxyCODONE HCl ER 15 MG eCW1 ([facility]) Hydromorphone Hydrochloride 2 MG Oral Tablet [employer] [place] HCl 2 MG Hydromorphone HCl 2 MG 07/12/2020 12:00:00 AM EST active Hydromorphone HCl 2 MG eCW1 ([facility]) OxyCODONE HCl ER 15 MG OxyCODONE HCl ER 15 MG 07/12/2020 12:00:00 A M EST 1.0 {tablet} active OxyCODONE HCl ER 15 MG eCW1 ([facility]) OxyCODONE HCl ER 15 MG OxyCODONE HCl ER 15 MG 07/12/2020 12:00:00 A M EST 1.0 {tablet} active OxyCODONE HCl ER 15 MG eCW1 ([facility]) Hydromorphone Hydrochloride 2 MG Oral Tablet [employer] [place] HCl 2 MG Hydromorphone HCl 2 MG 07/12/2020 12:00:00 AM EST active Hydromorphone HCl 2 MG eCW1 ([facility]) Hydromorphone Hydrochloride 2 MG Oral Tablet [facility] [place] HCl 2 MG Hydromorphone HCl 2 MG 07/12/2020 12:00:00 AM EST active Hydromorphone HCl 2 MG eCW1 ([facility]) OxyCODONE HCl ER 15 MG OxyCODONE HCl ER 15 MG 06/11/2020 12:00:00 A M EST 1.0 {tablet} active OxyCODONE HCl ER 15 MG eCW1 ([facility]) OxyCODONE HCl ER 15 MG OxyCODONE HCl ER 15 MG 06/11/2020 12:00:00 A M EST 1.0 {tablet} active OxyCODONE HCl ER 15 MG eCW1 ([facility]) OxyCODONE HCl ER 15 MG OxyCODONE HCl ER 15 MG 06/11/2020 12:00:00 A M EST 1.0 {tablet} active OxyCODONE HCl ER 15 MG eCW1 ([facility]) Hydromorphone Hydrochloride 2 MG Oral Tablet [employer]rom[employer] [place] HCl 2 MG Hydromorphone HCl 2 MG 06/11/2020 12:00:00 AM EST active Hydromorphone HCl 2 MG eCW1 ([facility]) Hydromorphone Hydrochloride 2 MG Oral Tablet [employer]drom[employer] [place] HCl 2 MG Hydromorphone HCl 2 MG 06/11/2020 12:00:00 AM EST active Hydromorphone HCl 2 MG eCW1 ([facility]) Hydromorphone Hydrochloride 2 MG Oral Tablet Hydrom[employer] [place] HCl 2 MG Hydromorphone HCl 2 MG 06/11/2020 12:00:00 AM EST active Hydromorphone HCl 2 MG eCW1 ([facility]) Hydromorphone Hydrochloride 2 MG Oral Tablet Hydrom[employer] [place] HCl 2 MG Hydromorphone HCl 2 MG 06/11/2020 12:00:00 AM EST active Hydromorphone HCl 2 MG eCW1 ([facility]) OxyCODONE HCl ER 15 MG OxyCODONE HCl ER 15 MG 06/11/2020 12:00:00 A M EST 1.0 {tablet} active OxyCODONE HCl ER 15 MG eCW1 ([facility]) Nystatin 526783 UNT/ML Topical Cream Nystatin 537381 U NIT/GM Nystatin 282921 UNIT/GM 06/05/2020 12:00:00 AM EDT 1.0 {application} active Nystatin 816955 UNIT/GM eCW1 ([facility]) Nystatin 076965 UNT/ML Topical Cream Nystatin 621308 U NIT/GM Nystatin 820738 UNIT/GM 06/05/2020 12:00:00 AM EDT 1.0 {application} active Nystatin 767999 UNIT/GM eCW1 ([facility]) Nystatin 471378 UNT/ML Topical Cream Nystatin 081014 U NIT/GM Nystatin 074807 UNIT/GM 06/05/2020 12:00:00 AM EDT 1.0 {application} active Nystatin 606183 UNIT/GM eCW1 ([facility]) Nystatin 436969 UNT/ML Topical Cream Nystatin 239770 U NIT/GM Nystatin 712146 UNIT/GM 06/05/2020 12:00:00 AM EDT 1.0 {application} active Nystatin 571433 UNIT/GM eCW1 ([facility]) Nystatin 647524 UNT/ML Topical Cream Nystatin 398091 U NIT/GM Nystatin 371981 UNIT/GM 06/05/2020 12:00:00 AM EDT 1.0 {application} active Nystatin 182490 UNIT/GM eCW1 ([facility]) Nystatin 504717 UNT/ML Topical Cream Nystatin 842201 U NIT/GM Nystatin 919659 UNIT/GM 06/05/2020 12:00:00 AM EDT 1.0 {application} active Nystatin 946603 UNIT/GM eCW1 ([facility]) Nystatin 633208 UNT/ML Topical Cream Nystatin 635926 U NIT/GM Nystatin 178468 UNIT/GM 06/05/2020 12:00:00 AM EDT 1.0 {application} active Nystatin 378543 UNIT/GM eCW1 ([facility]) Nystatin 662550 UNT/ML Topical Cream Nystatin 345412 U NIT/GM Nystatin 446125 UNIT/GM 06/05/2020 12:00:00 AM EDT 1.0 {application} active Nystatin 570157 UNIT/GM eCW1 ([facility]) Nystatin 076551 UNT/ML Topical Cream Nystatin 541054 U NIT/GM Nystatin 864823 UNIT/GM 06/05/2020 12:00:00 AM EDT 1.0 {application} active Nystatin 619647 UNIT/GM eCW1 ([facility]) Sucralfate 100 MG/ML Oral Suspension Sucralfate 05/24/2020 12:00:00 A M EDT active MEDENT ([facility], ) pantoprazole 40 MG Delayed Release Oral Tablet Pantoprazole Sodium 05/24/2020 12:00:00 AM EDT ORAL active M EDENT ([facility], ) Hydromorphone Hydrochloride 2 MG Oral Tablet [facility] [place] HCl 2 MG Hydromorphone HCl 2 MG 05/15/2020 12:00:00 AM EDT active Hydromorphone HCl 2 MG [facility] ([facility] [facility] Hydromorphone Hydrochloride 2 MG Oral Tablet Hydromorp [place] HCl 2 MG Hydromorphone HCl 2 MG 05/15/2020 12:00:00 AM EDT active Hydromorphone HCl 2 MG eCW1 ([facility]) Hydromorphone Hydrochloride 2 MG Oral Tablet Hydromorp [place] HCl 2 MG Hydromorphone HCl 2 MG 05/15/2020 12:00:00 AM EDT active Hydromorphone HCl 2 MG eCW1 ([facility]) OxyCODONE HCl ER 15 MG OxyCODONE HCl ER 15 MG 05/15/2020 12:00:00 A M EDT 1.0 {tablet} active OxyCODONE HCl ER 15 MG eCW1 ([facility]) Hydromorphone Hydrochloride 2 MG Oral Tablet Hydromorp [place] HCl 2 MG Hydromorphone HCl 2 MG 05/15/2020 12:00:00 AM EDT active Hydromorphone HCl 2 MG eCW1 ([facility]) OxyCODONE HCl ER 15 MG OxyCODONE HCl ER 15 MG 05/15/2020 12:00:00 A M EDT 1.0 {tablet} active OxyCODONE HCl ER 15 MG eCW1 ([facility], [facility]) Hydromorphone Hydrochloride 2 MG Oral Tablet Hydromorp [place] HCl 2 MG Hydromorphone HCl 2 MG 05/15/2020 12:00:00 AM EDT active Hydromorphone HCl 2 MG eCW1 ([facility]) Hydromorphone Hydrochloride 2 MG Oral Tablet Hydromorp [place] HCl 2 MG Hydromorphone HCl 2 MG 05/15/2020 12:00:00 AM EDT active Hydromorphone HCl 2 MG eCW1 ([facility], [facility]) OxyCODONE HCl ER 15 MG OxyCODONE HCl ER 15 MG 05/15/2020 12:00:00 A M EDT 1.0 {tablet} active OxyCODONE HCl ER 15 MG eCW1 ([facility]) OxyCODONE HCl ER 15 MG OxyCODONE HCl ER 15 MG 05/15/2020 12:00:00 A M EDT 1.0 {tablet} active OxyCODONE HCl ER 15 MG eCW1 ([facility]) OxyCODONE HCl ER 15 MG OxyCODONE HCl ER 15 MG 05/15/2020 12:00:00 A M EDT 1.0 {tablet} active OxyCODONE HCl ER 15 MG eCW1 ([facility]) OxyCODONE HCl ER 15 MG OxyCODONE HCl ER 15 MG 05/15/2020 12:00:00 A M EDT 1.0 {tablet} active OxyCODONE HCl ER 15 MG eCW1 ([facility]) Hydromorphone Hydrochloride 2 MG Oral Tablet Hydromorp [place] HCl 2 MG Hydromorphone HCl 2 MG 05/10/2020 12:00:00 AM EDT active Hydromorphone HCl 2 MG eCW1 ([facility]) OxyCODONE HCl ER 15 MG OxyCODONE HCl ER 15 MG 05/10/2020 12:00:00 A M EDT 1.0 {tablet} active OxyCODONE HCl ER 15 MG eCW1 ([facility]) torsemide 10 MG Oral Tablet Torsemide 05/07/2020 12:00:00 AM EDT ORAL active MEDENT ([facility]) Nebulizer/Tubing/Mouthpiece UNK 02/20/2020 12:00:00 AM EDT active Nebulizer/Tubing/Mouthpiece eCW1 ([facility]) Nebulizer/Tubing/Mouthpiece UNK 02/20/2020 12:00:00 AM EDT active Nebulizer/Tubing/Mouthpiece eCW1 ([facility]) Nebulizer/Tubing/Mouthpiece UNK 02/20/2020 12:00:00 AM EDT active Nebulizer/Tubing/Mouthpiece eCW1 ([facility]) Nebulizer/Tubing/Mouthpiece UNK 02/20/2020 12:00:00 AM EDT active Nebulizer/Tubing/Mouthpiece eCW1 ([facility]) Nebulizer/Tubing/Mouthpiece UNK 02/20/2020 12:00:00 AM EDT active Nebulizer/Tubing/Mouthpiece eCW1 ([facility]) Nebulizer/Tubing/Mouthpiece UNK 02/20/2020 12:00:00 AM EDT active Nebulizer/Tubing/Mouthpiece eCW1 ([facility]) Nebulizer/Tubing/Mouthpiece UNK 02/20/2020 12:00:00 AM EDT active Nebulizer/Tubing/Mouthpiece eCW1 ([facility]) Nebulizer/Tubing/Mouthpiece UNK 02/20/2020 12:00:00 AM EDT active Nebulizer/Tubing/Mouthpiece eCW1 ([facility]) Nebulizer/Tubing/Mouthpiece UNK 02/20/2020 12:00:00 AM EDT active Nebulizer/Tubing/Mouthpiece eCW1 ([facility]) Nebulizer/Tubing/Mouthpiece UNK 02/20/2020 12:00:00 AM EDT active Nebulizer/Tubing/Mouthpiece eCW1 ([facility]) Nebulizer/Tubing/Mouthpiece UNK 02/20/2020 12:00:00 AM EDT active Nebulizer/Tubing/Mouthpiece eCW1 ([facility]) Nebulizer/Tubing/Mouthpiece UNK 02/20/2020 12:00:00 AM EDT active Nebulizer/Tubing/Mouthpiece eCW1 ([facility]) Nebulizer/Tubing/Mouthpiece UNK 02/20/2020 12:00:00 AM EDT active Nebulizer/Tubing/Mouthpiece eCW1 ([facility]) Nebulizer/Tubing/Mouthpiece UNK 02/20/2020 12:00:00 AM EDT active Nebulizer/Tubing/Mouthpiece eCW1 ([facility]) Nebulizer/Tubing/Mouthpiece UNK 02/20/2020 12:00:00 AM EDT active Nebulizer/Tubing/Mouthpiece eCW1 ([facility]) Nebulizer/Tubing/Mouthpiece UNK 02/20/2020 12:00:00 AM EDT active Nebulizer/Tubing/Mouthpiece eCW1 ([facility]) Nebulizer/Tubing/Mouthpiece UNK 02/20/2020 12:00:00 AM EDT active Nebulizer/Tubing/Mouthpiece eCW1 ([facility]) Nebulizer/Tubing/Mouthpiece UNK 02/20/2020 12:00:00 AM EDT active Nebulizer/Tubing/Mouthpiece eCW1 ([facility]) OxyCODONE HCl ER 15 MG OxyCODONE HCl ER 15 MG 01/17/2020 12:00:00 A M EDT 1.0 {tablet} active OxyCODONE HCl ER 15 MG eCW1 ([facility]) Hydromorphone Hydrochloride 2 MG Oral Tablet Hydromorp [place] HCl 2 MG Hydromorphone HCl 2 MG 01/17/2020 12:00:00 AM EDT active Hydromorphone HCl 2 MG eCW1 ([facility]) OxyCODONE HCl ER 15 MG OxyCODONE HCl ER 15 MG 01/17/2020 12:00:00 A M EDT 1.0 {tablet} active OxyCODONE HCl ER 15 MG eCW1 ([facility]) OxyCODONE HCl ER 15 MG OxyCODONE HCl ER 15 MG 01/17/2020 12:00:00 A M EDT 1.0 {tablet} active OxyCODONE HCl ER 15 MG eCW1 ([facility]) OxyCODONE HCl ER 15 MG OxyCODONE HCl ER 15 MG 01/17/2020 12:00:00 A M EDT 1.0 {tablet} active OxyCODONE HCl ER 15 MG eCW1 ([facility]) Hydromorphone Hydrochloride 2 MG Oral Tablet Hydromorp [place] HCl 2 MG Hydromorphone HCl 2 MG 01/17/2020 12:00:00 AM EDT active Hydromorphone HCl 2 MG eCW1 ([facility]) Hydromorphone Hydrochloride 2 MG Oral Tablet Hydromorp [place] HCl 2 MG Hydromorphone HCl 2 MG 01/17/2020 12:00:00 AM EDT active Hydromorphone HCl 2 MG eCW1 ([facility]) Hydromorphone Hydrochloride 2 MG Oral Tablet Hydromorp [place] HCl 2 MG Hydromorphone HCl 2 MG 01/17/2020 12:00:00 AM EDT active Hydromorphone HCl 2 MG eCW1 ([facility]) OxyCODONE HCl ER 15 MG OxyCODONE HCl ER 15 MG 01/09/2020 12:00:00 AM E DT active 1 tablet eCW1 ([facility]) Hydromorphone Hydrochloride 2 MG Oral Tablet Hydromorp [place] HCl 2 MG Hydromorphone HCl 2 MG 01/09/2020 12:00:00 AM EDT active 1 tab eCW1 ([facility]) OxyCODONE HCl ER 15 MG OxyCODONE HCl ER 15 MG 12/12/2019 12:00:00 AM E DT active 1 tablet eCW1 ([facility]) Promethazine Hydrochloride 12.5 MG Oral Tablet Prometh azine HCl 12.5 MG Promethazine HCl 12.5 MG 12/08/2019 12:00:00 AM EDT 1.0 {tablet_as_ needed} active Promethazine HCl 12.5 MG eCW1 ([facility]) Promethazine Hydrochloride 12.5 MG Oral Tablet Prometh azine HCl 12.5 MG Promethazine HCl 12.5 MG 12/08/2019 12:00:00 AM EDT 1.0 {tablet_as_ needed} active Promethazine HCl 12.5 MG eCW1 ([facility]) Promethazine Hydrochloride 12.5 MG Oral Tablet Prometh azine HCl 12.5 MG Promethazine HCl 12.5 MG 12/08/2019 12:00:00 AM EDT 1.0 {tablet_as_ needed} active Promethazine HCl 12.5 MG eCW1 ([facility]) Promethazine Hydrochloride 12.5 MG Oral Tablet Prometh azine HCl 12.5 MG Promethazine HCl 12.5 MG 12/08/2019 12:00:00 AM EDT 1.0 {tablet_as_ needed} active Promethazine HCl 12.5 MG eCW1 ([facility]) Promethazine Hydrochloride 12.5 MG Oral Tablet Prometh azine HCl 12.5 MG Promethazine HCl 12.5 MG 12/08/2019 12:00:00 AM EDT 1.0 {tablet_as_ needed} active Promethazine HCl 12.5 MG eCW1 ([facility]) Promethazine Hydrochloride 12.5 MG Oral Tablet Prometh azine HCl 12.5 MG Promethazine HCl 12.5 MG 12/08/2019 12:00:00 AM EDT 1.0 {tablet_as_ needed} active Promethazine HCl 12.5 MG eCW1 ([facility]) Promethazine Hydrochloride 12.5 MG Oral Tablet Prometh azine HCl 12.5 MG Promethazine HCl 12.5 MG 12/08/2019 12:00:00 AM EDT 1.0 {tablet_as_ needed} active Promethazine HCl 12.5 MG eCW1 ([facility]) Promethazine Hydrochloride 12.5 MG Oral Tablet Prometh azine HCl 12.5 MG Promethazine HCl 12.5 MG 12/08/2019 12:00:00 AM EDT active 1 tablet as needed eCW1 ([facility]) Promethazine Hydrochloride 12.5 MG Oral Tablet Prometh azine HCl 12.5 MG Promethazine HCl 12.5 MG 12/08/2019 12:00:00 AM EDT 1.0 {tablet_as_ needed} active Promethazine HCl 12.5 MG eCW1 ([facility]) Promethazine Hydrochloride 12.5 MG Oral Tablet Prometh azine HCl 12.5 MG Promethazine HCl 12.5 MG 12/08/2019 12:00:00 AM EDT 1.0 {tablet_as_ needed} active Promethazine HCl 12.5 MG eCW1 ([facility]) Promethazine Hydrochloride 12.5 MG Oral Tablet Prometh azine HCl 12.5 MG Promethazine HCl 12.5 MG 12/08/2019 12:00:00 AM EDT 1.0 {tablet_as_ needed} active Promethazine HCl 12.5 MG eCW1 ([facility]) Promethazine Hydrochloride 12.5 MG Oral Tablet Prometh azine HCl 12.5 MG Promethazine HCl 12.5 MG 12/08/2019 12:00:00 AM EDT 1.0 {tablet_as_ needed} active Promethazine HCl 12.5 MG eCW1 ([facility]) Promethazine Hydrochloride 12.5 MG Oral Tablet Prometh azine HCl 12.5 MG Promethazine HCl 12.5 MG 12/08/2019 12:00:00 AM EDT 1.0 {tablet_as_ needed} active Promethazine HCl 12.5 MG eCW1 ([facility]) Promethazine Hydrochloride 12.5 MG Oral Tablet Prometh azine HCl 12.5 MG Promethazine HCl 12.5 MG 12/08/2019 12:00:00 AM EDT 1.0 {tablet_as_ needed} active Promethazine HCl 12.5 MG eCW1 ([facility]) Promethazine Hydrochloride 12.5 MG Oral Tablet Prometh azine HCl 12.5 MG Promethazine HCl 12.5 MG 12/08/2019 12:00:00 AM EDT 1.0 {tablet_as_ needed} active Promethazine HCl 12.5 MG eCW1 ([facility]) Promethazine Hydrochloride 12.5 MG Oral Tablet Prometh azine HCl 12.5 MG Promethazine HCl 12.5 MG 12/08/2019 12:00:00 AM EDT 1.0 {tablet_as_ needed} active Promethazine HCl 12.5 MG eCW1 ([facility]) Promethazine Hydrochloride 12.5 MG Oral Tablet Prometh azine HCl 12.5 MG Promethazine HCl 12.5 MG 12/08/2019 12:00:00 AM EDT 1.0 {tablet_as_ needed} active Promethazine HCl 12.5 MG eCW1 ([facility]) Promethazine Hydrochloride 12.5 MG Oral Tablet Prometh azine HCl 12.5 MG Promethazine HCl 12.5 MG 12/08/2019 12:00:00 AM EDT 1.0 {tablet_as_ needed} active Promethazine HCl 12.5 MG eCW1 ([facility]) Promethazine Hydrochloride 12.5 MG Oral Tablet Prometh azine HCl 12.5 MG Promethazine HCl 12.5 MG 12/08/2019 12:00:00 AM EDT 1.0 {tablet_as_ needed} active Promethazine HCl 12.5 MG eCW1 ([facility]) Promethazine Hydrochloride 12.5 MG Oral Tablet Prometh azine HCl 12.5 MG Promethazine HCl 12.5 MG 12/08/2019 12:00:00 AM EDT 1.0 {tablet_as_ needed} active Promethazine HCl 12.5 MG eCW1 ([facility]) Promethazine Hydrochloride 12.5 MG Oral Tablet Prometh azine HCl 12.5 MG Promethazine HCl 12.5 MG 12/08/2019 12:00:00 AM EDT 1.0 {tablet_as_ needed} active Promethazine HCl 12.5 MG eCW1 ([facility]) candesartan cilexetil 4 MG Oral Tablet Candesartan Cilexetil 12/07/2019 12:00:00 AM EDT ORAL active MEDENT ([facility]) Compazine 25mg UNK 12/05/2019 12:00:00 AM EDT active Compazine 25mg eCW1 ([facility]) Compazine 25mg UNK 12/05/2019 12:00:00 AM EDT act basilio 1 tab eCW1 ([facility]) Compazine 25mg UNK 12/05/2019 12:00:00 AM EDT active Compazine 25mg eCW1 ([facility]) Compazine 25mg UNK 12/05/2019 12:00:00 AM EDT active Compazine 25mg eCW1 ([facility]) Compazine 25mg UNK 12/05/2019 12:00:00 AM EDT suspended Compazine 25mg eCW1 ([facility]) Compazine 25mg UNK 12/05/2019 12:00:00 AM EDT active Compazine 25mg eCW1 ([facility]) Compazine 25mg UNK 12/05/2019 12:00:00 AM EDT suspended Compazine 25mg eCW1 ([facility]) Compazine 25mg UNK 12/05/2019 12:00:00 AM EDT suspended Compazine 25mg eCW1 ([facility]) Compazine 25mg UNK 12/05/2019 12:00:00 AM EDT suspended Compazine 25mg eCW1 ([facility]) Compazine 25mg UNK 12/05/2019 12:00:00 AM EDT suspended Compazine 25mg eCW1 ([facility]) Compazine 25mg UNK 12/05/2019 12:00:00 AM EDT active Compazine 25mg eCW1 ([facility]) Compazine 25mg UNK 12/05/2019 12:00:00 AM EDT suspended Compazine 25mg eCW1 ([facility]) Diclofenac Sodium 0.01 MG/MG Topical Gel [Voltaren] Voltaren 1 % Voltaren 1 % 12/01/2019 12:00:00 AM EDT active Voltaren 1 % eCW1 ([facility]) Diclofenac Sodium 0.01 MG/MG Topical Gel [Voltaren] Voltaren 1 % Voltaren 1 % 12/01/2019 12:00:00 AM EDT active Voltaren 1 % eCW1 ([facility]) Hydroxyzine Pamoate 25 MG Oral Capsule HydrOXYzine Tete oate 25 MG HydrOXYzine Pamoate 25 MG 12/01/2019 12:00:00 AM EDT 1.0 {capsule_as_needed} suspended HydrOXYzine Pamoate 25 MG eCW1 ( [facility]) Hydroxyzine Pamoate 25 MG Oral Capsule HydrOXYzine Tete oate 25 MG HydrOXYzine Pamoate 25 MG 12/01/2019 12:00:00 AM EDT 1.0 {capsule_as_needed} active HydrOXYzine Pamoate 25 MG eCW1 ([facility]) Diclofenac Sodium 0.01 MG/MG Topical Gel [Voltaren] Voltaren 1 % Voltaren 1 % 12/01/2019 12:00:00 AM EDT active Voltaren 1 % eCW1 ([facility]) Hydroxyzine Pamoate 25 MG Oral Capsule HydrOXYzine Tete oate 25 MG HydrOXYzine Pamoate 25 MG 12/01/2019 12:00:00 AM EDT 1.0 {capsule_as_needed} suspended HydrOXYzine Pamoate 25 MG eCW1 ( [facility]) Diclofenac Sodium 0.01 MG/MG Topical Gel [Voltaren] Voltaren 1 % Voltaren 1 % 12/01/2019 12:00:00 AM EDT active Voltaren 1 % eCW1 ([facility]) Hydroxyzine Pamoate 25 MG Oral Capsule HydrOXYzine Tete oate 25 MG HydrOXYzine Pamoate 25 MG 12/01/2019 12:00:00 AM EDT 1.0 {capsule_as_needed} suspended HydrOXYzine Pamoate 25 MG eCW1 ( [facility]) Diclofenac Sodium 0.01 MG/MG Topical Gel [Voltaren] Voltaren 1 % Voltaren 1 % 12/01/2019 12:00:00 AM EDT active Voltaren 1 % eCW1 ([facility]) Hydroxyzine Pamoate 25 MG Oral Capsule HydrOXYzine Tete oate 25 MG HydrOXYzine Pamoate 25 MG 12/01/2019 12:00:00 AM EDT 1.0 {capsule_as_needed} active HydrOXYzine Pamoate 25 MG eCW1 ([facility]) Hydroxyzine Pamoate 25 MG Oral Capsule HydrOXYzine Tete oate 25 MG HydrOXYzine Pamoate 25 MG 12/01/2019 12:00:00 AM EDT 1.0 {capsule_as_needed} suspended HydrOXYzine Pamoate 25 MG eCW1 ( [facility]) Diclofenac Sodium 0.01 MG/MG Topical Gel [Voltaren] Voltaren 1 % Voltaren 1 % 12/01/2019 12:00:00 AM EDT active Voltaren 1 % eCW1 ([facility]) Diclofenac Sodium 0.01 MG/MG Topical Gel [Voltaren] Voltaren 1 % Voltaren 1 % 12/01/2019 12:00:00 AM EDT active Voltaren 1 % eCW1 ([facility]) Diclofenac Sodium 0.01 MG/MG Topical Gel [Voltaren] Voltaren 1 % Voltaren 1 % 12/01/2019 12:00:00 AM EDT active Voltaren 1 % eCW1 ([facility]) Diclofenac Sodium 0.01 MG/MG Topical Gel [Voltaren] Voltaren 1 % Voltaren 1 % 12/01/2019 12:00:00 AM EDT active Voltaren 1 % eCW1 ([facility]) Hydroxyzine Pamoate 25 MG Oral Capsule HydrOXYzine Tete oate 25 MG HydrOXYzine Pamoate 25 MG 12/01/2019 12:00:00 AM EDT 1.0 {capsule_as_needed} active HydrOXYzine Pamoate 25 MG eCW1 ([facility]) Hydroxyzine Pamoate 25 MG Oral Capsule HydrOXYzine Tete oate 25 MG HydrOXYzine Pamoate 25 MG 12/01/2019 12:00:00 AM EDT 1.0 {capsule_as_needed} active HydrOXYzine Pamoate 25 MG eCW1 ([facility]) Diclofenac Sodium 0.01 MG/MG Topical Gel [Voltaren] Voltaren 1 % Voltaren 1 % 12/01/2019 12:00:00 AM EDT active 1gram eCW1 ([facility]) Hydroxyzine Pamoate 25 MG Oral Capsule HydrOXYzine Tete oate 25 MG HydrOXYzine Pamoate 25 MG 12/01/2019 12:00:00 AM EDT acti ve 1 capsule as needed eCW1 ([facility]) Hydroxyzine Pamoate 25 MG Oral Capsule HydrOXYzine Tete oate 25 MG HydrOXYzine Pamoate 25 MG 12/01/2019 12:00:00 AM EDT 1.0 {capsule_as_needed} suspended HydrOXYzine Pamoate 25 MG eCW1 ( [facility]) Diclofenac Sodium 0.01 MG/MG Topical Gel [Voltaren] Voltaren 1 % Voltaren 1 % 12/01/2019 12:00:00 AM EDT active Voltaren 1 % eCW1 ([facility]) Hydroxyzine Pamoate 25 MG Oral Capsule HydrOXYzine Tete oate 25 MG HydrOXYzine Pamoate 25 MG 12/01/2019 12:00:00 AM EDT 1.0 {capsule_as_needed} active HydrOXYzine Pamoate 25 MG eCW1 ([facility]) Hydroxyzine Pamoate 25 MG Oral Capsule HydrOXYzine Tete oate 25 MG HydrOXYzine Pamoate 25 MG 12/01/2019 12:00:00 AM EDT 1.0 {capsule_as_needed} suspended HydrOXYzine Pamoate 25 MG eCW1 ( [facility]) Diclofenac Sodium 0.01 MG/MG Topical Gel [Voltaren] Voltaren 1 % Voltaren 1 % 12/01/2019 12:00:00 AM EDT active Voltaren 1 % eCW1 ([facility]) Hydromorphone Hydrochloride 2 MG Oral Tablet Hydromorp [place] HCl 2 MG Hydromorphone HCl 2 MG 11/22/2019 12:00:00 AM EDT active 1 tab eCW1 ([facility]) Hydromorphone Hydrochloride 2 MG Oral Tablet Hydromorp [place] HCl 2 MG Hydromorphone HCl 2 MG 11/22/2019 12:00:00 AM EDT active 1 tab eCW1 ([facility]) OxyCODONE HCl ER 15 MG OxyCODONE HCl ER 15 MG 11/09/2019 12:00:00 AM E DT active 1 tablet eCW1 ([facility]) OxyCODONE HCl ER 15 MG OxyCODONE HCl ER 15 MG 11/09/2019 12:00:00 AM E DT active 1 tablet eCW1 ([facility]) Albuterol Sulfate HFA 108 (90 Base) MCG/ACT Albuterol Sulfate HFA 108 (90 Base) MCG/ACT 11/03/2019 12:00:00 AM EDT 1.0 {puff} active Albuterol Sulfate HFA 108 (90 Base) MCG/ACT eCW1 ([facility]) Albuterol Sulfate HFA 108 (90 Base) MCG/ACT Albuterol Sulfate HFA 108 (90 Base) MCG/ACT 11/03/2019 12:00:00 AM EDT 1.0 {puff} active Albuterol Sulfate HFA 108 (90 Base) MCG/ACT eCW1 ([facility]) Albuterol Sulfate HFA 108 (90 Base) MCG/ACT Albuterol Sulfate HFA 108 (90 Base) MCG/ACT 11/03/2019 12:00:00 AM EDT 1.0 {puff} active Albuterol Sulfate HFA 108 (90 Base) MCG/ACT eCW1 ([facility]) Albuterol Sulfate HFA 108 (90 Base) MCG/ACT Albuterol Sulfate HFA 108 (90 Base) MCG/ACT 11/03/2019 12:00:00 AM EDT 1.0 {puff} active Albuterol Sulfate HFA 108 (90 Base) MCG/ACT eCW1 ([facility]) Albuterol Sulfate HFA 108 (90 Base) MCG/ACT Albuterol Sulfate HFA 108 (90 Base) MCG/ACT 11/03/2019 12:00:00 AM EDT 1.0 {puff} active Albuterol Sulfate HFA 108 (90 Base) MCG/ACT eCW1 ([facility]) Albuterol Sulfate HFA 108 (90 Base) MCG/ACT Albuterol Sulfate HFA 108 (90 Base) MCG/ACT 11/03/2019 12:00:00 AM EDT 1.0 {puff} active Albuterol Sulfate HFA 108 (90 Base) MCG/ACT eCW1 ([facility]) Albuterol Sulfate HFA 108 (90 Base) MCG/ACT Albuterol Sulfate HFA 108 (90 Base) MCG/ACT 11/03/2019 12:00:00 AM EDT active 1 puff eCW1 ([facility]) Albuterol Sulfate HFA 108 (90 Base) MCG/ACT Albuterol Sulfate HFA 108 (90 Base) MCG/ACT 11/03/2019 12:00:00 AM EDT 1.0 {puff} active Albuterol Sulfate HFA 108 (90 Base) MCG/ACT eCW1 ([facility]) Albuterol Sulfate HFA 108 (90 Base) MCG/ACT Albuterol Sulfate HFA 108 (90 Base) MCG/ACT 11/03/2019 12:00:00 AM EDT 1.0 {puff} active Albuterol Sulfate HFA 108 (90 Base) MCG/ACT eCW1 ([facility]) Albuterol Sulfate HFA 108 (90 Base) MCG/ACT Albuterol Sulfate HFA 108 (90 Base) MCG/ACT 11/03/2019 12:00:00 AM EDT 1.0 {puff} active Albuterol Sulfate HFA 108 (90 Base) MCG/ACT eCW1 ([facility]) Albuterol Sulfate HFA 108 (90 Base) MCG/ACT Albuterol Sulfate HFA 108 (90 Base) MCG/ACT 11/03/2019 12:00:00 AM EDT 1.0 {puff} active Albuterol Sulfate HFA 108 (90 Base) MCG/ACT eCW1 ([facility]) Albuterol Sulfate HFA 108 (90 Base) MCG/ACT Albuterol Sulfate HFA 108 (90 Base) MCG/ACT 11/03/2019 12:00:00 AM EDT 1.0 {puff} active Albuterol Sulfate HFA 108 (90 Base) MCG/ACT eCW1 ([facility]) Albuterol Sulfate HFA 108 (90 Base) MCG/ACT Albuterol Sulfate HFA 108 (90 Base) MCG/ACT 11/03/2019 12:00:00 AM EDT 1.0 {puff} active Albuterol Sulfate HFA 108 (90 Base) MCG/ACT eCW1 ([facility]) Albuterol Sulfate HFA 108 (90 Base) MCG/ACT Albuterol Sulfate HFA 108 (90 Base) MCG/ACT 11/03/2019 12:00:00 AM EDT 1.0 {puff} active Albuterol Sulfate HFA 108 (90 Base) MCG/ACT eCW1 ([facility]) Albuterol Sulfate HFA 108 (90 Base) MCG/ACT Albuterol Sulfate HFA 108 (90 Base) MCG/ACT 11/03/2019 12:00:00 AM EDT active 1 puff eCW1 ([facility]) Albuterol Sulfate HFA 108 (90 Base) MCG/ACT Albuterol Sulfate HFA 108 (90 Base) MCG/ACT 11/03/2019 12:00:00 AM EDT 1.0 {puff} active Albuterol Sulfate HFA 108 (90 Base) MCG/ACT eCW1 ([facility]) Albuterol Sulfate HFA 108 (90 Base) MCG/ACT Albuterol Sulfate HFA 108 (90 Base) MCG/ACT 11/03/2019 12:00:00 AM EDT 1.0 {puff} active Albuterol Sulfate HFA 108 (90 Base) MCG/ACT eCW1 ([facility]) Albuterol Sulfate HFA 108 (90 Base) MCG/ACT Albuterol Sulfate HFA 108 (90 Base) MCG/ACT 11/03/2019 12:00:00 AM EDT 1.0 {puff} active Albuterol Sulfate HFA 108 (90 Base) MCG/ACT eCW1 ([facility]) Albuterol Sulfate HFA 108 (90 Base) MCG/ACT Albuterol Sulfate HFA 108 (90 Base) MCG/ACT 11/03/2019 12:00:00 AM EDT 1.0 {puff} active Albuterol Sulfate HFA 108 (90 Base) MCG/ACT eCW1 ([facility]) Albuterol Sulfate HFA 108 (90 Base) MCG/ACT Albuterol Sulfate HFA 108 (90 Base) MCG/ACT 11/03/2019 12:00:00 AM EDT 1.0 {puff} active Albuterol Sulfate HFA 108 (90 Base) MCG/ACT eCW1 ([facility], [facility]) Albuterol Sulfate HFA 108 (90 Base) MCG/ACT Albuterol Sulfate HFA 108 (90 Base) MCG/ACT 11/03/2019 12:00:00 AM EDT 1.0 {puff} active Albuterol Sulfate HFA 108 (90 Base) MCG/ACT eCW1 ([facility], [facility]) Albuterol Sulfate HFA 108 (90 Base) MCG/ACT Albuterol Sulfate HFA 108 (90 Base) MCG/ACT 11/03/2019 12:00:00 AM EDT 1.0 {puff} active Albuterol Sulfate HFA 108 (90 Base) MCG/ACT eCW1 ([facility], [facility]) benzonatate 100 MG Oral Capsule Benzonatate 100 MG Benzonata te 100 MG 10/31/2019 12:00:00 AM EDT 1.0 {capsule_as_needed} suspend ed Benzonatate 100 MG eCW1 ([facility], [facility]) benzonatate 100 MG Oral Capsule Benzonatate 100 MG Benzon[place] te 100 MG 10/31/2019 12:00:00 AM EDT 1.0 {capsule_as_needed} suspend ed Benzonatate 100 MG eCW1 ([facility], [facility]) benzonatate 100 MG Oral Capsule Benzonatate 100 MG Benzonata te 100 MG 10/31/2019 12:00:00 AM EDT 1.0 {capsule_as_needed} suspend ed Benzonatate 100 MG eCW1 ([facility], [facility]) benzonatate 100 MG Oral Capsule Benzonatate 100 MG Benzon[place] te 100 MG 10/31/2019 12:00:00 AM EDT 1.0 {capsule_as_needed} suspend ed Benzonatate 100 MG eCW1 ([facility], [facility]) benzonatate 100 MG Oral Capsule Benzonatate 100 MG Benzon[place] te 100 MG 10/31/2019 12:00:00 AM EDT 1.0 {capsule_as_needed} suspend ed Benzonatate 100 MG eCW1 ([facility], [facility]) benzonatate 100 MG Oral Capsule Benzonatate 100 MG Benzon[place] te 100 MG 10/31/2019 12:00:00 AM EDT 1.0 {capsule_as_needed} suspend ed Benzonatate 100 MG eCW1 ([facility], [facility]) benzonatate 100 MG Oral Capsule Benzonatate 100 MG Ben[place] te 100 MG 10/31/2019 12:00:00 AM EDT 1.0 {capsule_as_needed} suspend ed Benzonatate 100 MG eCW1 ([facility], [facility]) benzonatate 100 MG Oral Capsule Benzonatate 100 MG Benzon[place] te 100 MG 10/31/2019 12:00:00 AM EDT 1.0 {capsule_as_needed} suspend ed Benzonatate 100 MG eCW1 ([facility], [facility]) benzonatate 100 MG Oral Capsule Benzonatate 100 MG Benzonata te 100 MG 10/31/2019 12:00:00 AM EDT 1.0 {capsule_as_needed} suspend ed Benzonatate 100 MG eCW1 ([facility]) benzonatate 100 MG Oral Capsule Benzonatate 100 MG Benzonata te 100 MG 10/31/2019 12:00:00 AM EDT 1.0 {capsule_as_needed} suspend ed Benzonatate 100 MG eCW1 ([facility]) benzonatate 100 MG Oral Capsule Benzonatate 100 MG Benzonata te 100 MG 10/31/2019 12:00:00 AM EDT 1.0 {capsule_as_needed} suspend ed Benzonatate 100 MG eCW1 ([facility]) benzonatate 100 MG Oral Capsule Benzonatate 100 MG Benzonata te 100 MG 10/31/2019 12:00:00 AM EDT 1.0 {capsule_as_needed} suspend ed Benzonatate 100 MG eCW1 ([facility]) benzonatate 100 MG Oral Capsule Benzonatate 100 MG Benzonata te 100 MG 10/31/2019 12:00:00 AM EDT 1.0 {capsule_as_needed} suspend ed Benzonatate 100 MG eCW1 ([facility]) benzonatate 100 MG Oral Capsule Benzonatate 100 MG Benzonata te 100 MG 10/31/2019 12:00:00 AM EDT 1.0 {capsule_as_needed} suspend ed Benzonatate 100 MG eCW1 ([facility]) benzonatate 100 MG Oral Capsule Benzonatate 100 MG Benzonata te 100 MG 10/31/2019 12:00:00 AM EDT 1.0 {capsule_as_needed} suspend ed Benzonatate 100 MG eCW1 ([facility]) benzonatate 100 MG Oral Capsule Benzonatate 100 MG Benzonata te 100 MG 10/31/2019 12:00:00 AM EDT 1.0 {capsule_as_needed} suspend ed Benzonatate 100 MG eCW1 ([facility]) benzonatate 100 MG Oral Capsule Benzonatate 100 MG Benzonata te 100 MG 10/31/2019 12:00:00 AM EDT 1.0 {capsule_as_needed} suspend ed Benzonatate 100 MG eCW1 ([facility]) benzonatate 100 MG Oral Capsule Benzonatate 100 MG Benzonata te 100 MG 10/31/2019 12:00:00 AM EDT 1.0 {capsule_as_needed} suspend ed Benzonatate 100 MG eCW1 ([facility]) benzonatate 100 MG Oral Capsule Benzonatate 100 MG Benzonata te 100 MG 10/31/2019 12:00:00 AM EDT 1.0 {capsule_as_needed} suspend ed Benzonatate 100 MG eCW1 ([facility]) benzonatate 100 MG Oral Capsule Benzonatate 100 MG Benzonata te 100 MG 10/31/2019 12:00:00 AM EDT 1.0 {capsule_as_needed} suspend ed Benzonatate 100 MG eCW1 ([facility]) normal saline flush 0.9 % injection 3 mL 59209-403-60 10/11/2019 02:00:00 PM EST 3 mL Intravenous active 3 mL , Intravenous, PROTOCOL, First dose on Thu10/11/19 at 1400, Pre-Procedure
flush per protocol, D/C Main IV fluid if appropriate
[facility] Medication administered onsite sodium chloride 0.9% (NS) infusion 1829-6662-23 10/11/2019 10:00:00 A M EST Intravenous active at 100 mL/hr, Intravenous, Continuous, Starting Thu10/11/19 at 1000, For 2 hours, Post-op [facility] Medication administered onsite iopamidol (ISOVUE-370) 76 % [id number] 10/11/2019 08:36:33 AM EST active As needed, Starting Thu10/11/19 at 0836, Intra-Procedur e [facility] Medication administered onsite 1 ML heparin sodium, porcine 1000 UNT/ML Injection hep vicenta (porcine) injection heparin (porcine) injection 10/11/2019 08:30:24 AM EST active As needed, Starting Thu10/11/19 at 0830, Intra-Procedure [facility] Medication administered onsite NITROGLYCERIN 0.4 MG/ML IV SOLN [id number] 10/11/2019 08:28:20 AM EST active As needed, Starting Thu at 0828, Intra-Procedure [facility] Medication administered onsite bupivacaine (PF) (MARCAINE) 0.5 % injection [id number] 10/11/2019 08:26:44 AM EST active As needed, Starting Thu10/11/19 at 0826, Intra-Procedure [facility] Medication administered onsite 2 ML Midazolam 1 MG/ML Injection midazolam (VERSED) in jection midazolam (VERSED) injection 10/11/2019 08:25:44 AM EST active As needed, Starting Thu10/11/19 at 0825, Intra-Procedure [facility] Medication administered onsite fentaNYL Citrate (PF) (SUBLIMAZE) injection 4064-4910-89 10/11/2019 08:25:28 AM EST active As neede d, Starting Thu10/11/19 at 0825, Intra-Procedure [facility] Medication administered onsite Diphenhydramine Hydrochloride 50 MG Oral Capsule diphenhydrAMINE (BENADRYL) capsule 50 mg diphenhydrAMINE (BENADRYL) capsule 50 mg 10/11/2019 07 :00:00 AM EST 50 mg Oral completed 50 mg, 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
Give if scheduled for cardiac or peripheral angioplasty/stent or carotid stenting.Administer AM dose prior to procedure if NOT taken at home.Max of 1 dose per day.
[facility] Medication administered onsite sodium chloride 0.9% (NS) infusion 3087-6980-39 10/11/2019 07:00:00 AM EST 100 mL/h Intravenous active at 100 m L/hr, 100 mL/hr, Intravenous, Continuous, Starting Thu10/11/19 at 0700, Pre-Procedure
Start two hours prior to scheduled start time
[facility] Medication administered onsite normal saline flush 0.9 % injection 3 mL [id number] 10/11/2019 07:00:00 AM EST 3 mL Intravenous active 3 mL , Intravenous, Every 8 hours (scheduled), First dose on Thu10/11/19 at 0700, Pre-Procedure
Rapid push positive pressure flushing shall be performed with a 10 cc normal saline syringe to check the PATENCY of a PIV site prior to any infusion therapy initiation unless resistance is met.
[facility] Medication administered onsite Acetaminophen 325 MG Oral Tablet acetaminophen (TYLENO L) 325 MG tablet 650 mg acetaminophen (TYLENOL) 325 MG tablet 650 mg 10/11/2019 06:20:11 AM EST 650 mg Oral active 650 mg, Or al, Every 4 hours PRN, headaches, and non cardiac pain, Starting Thu10/11/19 at 0620, Pre-Procedure
"Maximum dose of acetaminophen is 4,000 mg from all sources in 24 hours."
[facility] Medication administered onsite Magnesium Oxide 250 MG Oral Tablet Magnesium Oxide 10/07/2019 12:00 :00 AM EST ORAL active [facility] ([facility]) clopidogrel 75 MG Oral Tablet Clopidogrel Bisulfate 10/06/2019 1 2:00:00 AM EST ORAL completed MED[facility] ([facility]) Aspirin 81 MG Delayed Release Oral Tablet [Gavin Aspir in] Gavin Aspirin Ec Low Dose 10/06/2019 12:00:00 AM EST ORAL completed MED[facility] ([facility]) Hydromorphone Hydrochloride 2 MG Oral Tablet Hydromorp [place] HCl 2 MG Hydromorphone HCl 2 MG 10/05/2019 12:00:00 AM EST active 1 tab eCW1 ([facility]) Hydromorphone Hydrochloride 2 MG Oral Tablet Hydromorp [place] HCl 2 MG Hydromorphone HCl 2 MG 10/05/2019 12:00:00 AM EST active 1 tab eCW1 ([facility]) OxyCODONE HCl ER 15 MG OxyCODONE HCl ER 15 MG 10/05/2019 12:00:[address] active 1 tablet eCW1 ([facility]) Bisoprolol Fumarate 5 MG Oral Tablet Bisoprolol Fumarate 12:00:00 AM EST ORAL active [facility] ([facility]) Bisoprolol Fumarate 5 MG Oral Tablet Bisoprolol Fumarate 02/2020 12:00:00 AM EST ORAL completed MED[facility] ([facility]) duloxetine 60 MG Delayed Release Oral Capsule Duloxetine HCL 09/16/2019 12:00:00 AM EST ORAL active [facility] ([facility]) duloxetine 20 MG Delayed Release Oral Capsule Duloxetine HCL 09/16/2019 12:00:00 AM EST ORAL active [facility] ([facility]) torsemide 5 MG Oral Tablet Torsemide 09/16/2019 12:00:00 AM EST ORAL active [facility] ([facility]) torsemide 5 MG Oral Tablet Torsemide 09/13/2019 12:00:00 AM EST ORAL completed [facility] ([facility]) eplerenone 25 MG Oral Tablet Eplerenone 09/09/2019 12:00:00 AM EST ORAL active [facility] ([facility]) 24 HR Cyclobenzaprine hydrochloride 15 MG Extended Rel ease Oral Capsule [Amrix] Amrix 09/08/2019 12:00:00 AM EST ORAL active [facility] ([facility]) Hydromorphone Hydrochloride 2 MG Oral Tablet Hydromorphone H CL 09/08/2019 12:00:00 AM EST ORAL active M EDENT ([facility]) Lactobacillus acidophilus [id number] UNT Oral Capsule Probiot ic 09/08/2019 12:00:00 AM EST ORAL active M EDENT ([facility]) Oxycodone Hydrochloride 15 MG Oral Tablet Oxycodone HCL 09/08/2019 12:00:00 AM EST ORAL active [facility] ([facility]) benzonatate 100 MG Oral Capsule Benzonatate 09/08/2019 12:00:00 AM EST ORAL active [facility] ([facility]) 60 ACTUAT Fluticasone propionate 0.25 MG /ACTUAT / salmeterol 0.05 MG/ACTUAT Dry Powder Inhaler [Advair] Advair Diskus 09/08/2019 12:00:00 AM EST RESPIRATORY active [facility] ([facility]) Amlodipine 5 MG Oral Tablet Amlodipine Besylate 09/08/2019 12:00:00 A M EST ORAL completed [facility] ([facility]) Albuterol 0.833 MG/ML / Ipratropium [place] 0.167 MG/M L Inhalant Solution Ipratropium [place]/Albuterol Sulfate 09/08/2019 12:00:00 AM EST active [facility] ([facility]) Hydroxyzine Hydrochloride 50 MG Oral Tablet Hydroxyzine HCL 09/08/2019 12:00:00 AM EST ORAL active [facility] ([facility]) Ondansetron 4 MG Oral Tablet [Zofran] Zofran 09/08/2019 12:00:00 AM EST active [facility] ([facility]) Levothyroxine Sodium 0.025 MG Oral Tablet Levothyroxine Sodi um 09/08/2019 12:00:00 AM EST ORAL active M EDENT ([facility]) ropinirole 1 MG Oral Tablet Ropinirole HCL 09/08/2019 12:00:00 AM EST ORAL active [facility] ([facility]) Ranitidine 150 MG Oral Capsule Ranitidine HCL 09/08/2019 12:00:00 AM EST ORAL completed [facility] ([facility]) Diphenhydramine Hydrochloride 25 MG Oral Tablet [Benadryl] B enadryl Allergy 09/08/2019 12:00:00 AM EST ORAL active [facility] ([facility]) [facility] [place] 09/08/2019 12:00:00 AM EST ac tive [facility] ([facility]) Coconut Oil 1000 MG Oral Capsule Coconut Oil 09/08/2019 12:00:[address] ORAL completed [facility] ([facility]) Ascorbic Acid 60 MG / Beta Carotene 5000 UNT / Copper Sulfate 40 MG / dl-alpha tocopheryl acetate 30 UNT / Sodium Selenite 0.04 MG / Zinc Oxide 40 MG Oral Tablet Multivitamin Adult 09/08/2019 12:00:00 AM EST ORAL active [facility] ([facility]) Nystatin [id number] UNT/ML Topical Cream Nystatin 09/08/2019 12:00:00 AM EST active [facility] ([facility]) Metformin hydrochloride 1000 MG Oral Tablet Metformin HCL 09/08/2019 12:00:00 AM EST ORAL active [facility] ([facility]) duloxetine 60 MG Delayed Release Oral Capsule [Cymbalta] Cym karan 09/08/2019 12:00:00 AM EST ORAL completed [facility] ([facility]) Hydromorphone Hydrochloride 2 MG Oral Tablet Hydromorp [place] HCl 2 MG Hydromorphone HCl 2 MG 08/23/2019 12:00:00 AM EST active 4 mg eCW1 ([facility]) Hydromorphone Hydrochloride 2 MG Oral Tablet Hydromorp [place] HCl 2 MG Hydromorphone HCl 2 MG 08/23/2019 12:00:00 AM EST active 1 tab eCW1 ([facility]) OxyCODONE HCl ER 15 MG OxyCODONE HCl ER 15 MG 08/23/2019 12:00:[address] active 1 tablet eCW1 ([facility]) Prednisone 5 MG Oral Tablet PredniSONE 5 MG PredniSONE 5 MG 08/19/2019 12:00:00 AM EST active 2 tablets x5D, 1 tablet x5Days eCW1 ([facility]) Prednisone 5 MG Oral Tablet PredniSONE 5 MG PredniSONE 5 MG 08/19/2019 12:00:00 AM EST suspended PredniSONE 5 M G eCW1 ([facility]) Prednisone 5 MG Oral Tablet PredniSONE 5 MG PredniSONE 5 MG 08/19/2019 12:00:00 AM EST active 2 tablets x5D, 1 tablet x5Days eCW1 ([facility]) Prednisone 5 MG Oral Tablet PredniSONE 5 MG PredniSONE 5 MG 08/19/2019 12:00:00 AM EST suspended PredniSONE 5 M G eCW1 ([facility]) Prednisone 5 MG Oral Tablet PredniSONE 5 MG PredniSONE 5 MG 08/19/2019 12:00:00 AM EST suspended PredniSONE 5 M G eCW1 ([facility]) Prednisone 5 MG Oral Tablet PredniSONE 5 MG PredniSONE 5 MG 08/19/2019 12:00:00 AM EST suspended PredniSONE 5 M G eCW1 ([facility]) Prednisone 5 MG Oral Tablet PredniSONE 5 MG PredniSONE 5 MG 08/19/2019 12:00:00 AM EST suspended PredniSONE 5 M G eCW1 ([facility]) Prednisone 5 MG Oral Tablet PredniSONE 5 MG PredniSONE 5 MG 08/19/2019 12:00:00 AM EST suspended PredniSONE 5 M G eCW1 ([facility]) Prednisone 5 MG Oral Tablet PredniSONE 5 MG PredniSONE 5 MG 08/19/2019 12:00:00 AM EST suspended PredniSONE 5 M G eCW1 ([facility]) Prednisone 5 MG Oral Tablet PredniSONE 5 MG PredniSONE 5 MG 08/19/2019 12:00:00 AM EST suspended PredniSONE 5 M G eCW1 ([facility]) Prednisone 5 MG Oral Tablet PredniSONE 5 MG PredniSONE 5 MG 08/19/2019 12:00:00 AM EST suspended PredniSONE 5 M G eCW1 ([facility]) Prednisone 5 MG Oral Tablet PredniSONE 5 MG PredniSONE 5 MG 08/19/2019 12:00:00 AM EST suspended PredniSONE 5 M G eCW1 ([facility]) Prednisone 5 MG Oral Tablet PredniSONE 5 MG PredniSONE 5 MG 08/19/2019 12:00:00 AM EST suspended PredniSONE 5 M G eCW1 ([facility]) Prednisone 5 MG Oral Tablet PredniSONE 5 MG PredniSONE 5 MG 08/19/2019 12:00:00 AM EST suspended PredniSONE 5 M G eCW1 ([facility]) Prednisone 5 MG Oral Tablet PredniSONE 5 MG PredniSONE 5 MG 08/19/2019 12:00:00 AM EST suspended PredniSONE 5 M G eCW1 ([facility]) Prednisone 5 MG Oral Tablet PredniSONE 5 MG PredniSONE 5 MG 08/19/2019 12:00:00 AM EST suspended PredniSONE 5 M G eCW1 ([facility]) Prednisone 5 MG Oral Tablet PredniSONE 5 MG PredniSONE 5 MG 08/19/2019 12:00:00 AM EST suspended PredniSONE 5 M G eCW1 ([facility]) Prednisone 5 MG Oral Tablet PredniSONE 5 MG PredniSONE 5 MG 08/19/2019 12:00:00 AM EST suspended PredniSONE 5 M G eCW1 ([facility]) Prednisone 5 MG Oral Tablet PredniSONE 5 MG PredniSONE 5 MG 08/19/2019 12:00:00 AM EST suspended PredniSONE 5 M G eCW1 ([facility]) Prednisone 5 MG Oral Tablet PredniSONE 5 MG PredniSONE 5 MG 08/19/2019 12:00:00 AM EST suspended PredniSONE 5 M G eCW1 ([facility]) Prednisone 5 MG Oral Tablet PredniSONE 5 MG PredniSONE 5 MG 08/19/2019 12:00:00 AM EST suspended PredniSONE 5 M G eCW1 ([facility]) Prednisone 5 MG Oral Tablet PredniSONE 5 MG PredniSONE 5 MG 08/19/2019 12:00:00 AM EST suspended PredniSONE 5 M G eCW1 ([facility]) PredniSONE 5 MG UNK 08/18/2019 12:00:00 AM EST suspended PredniSONE 5 MG eCW1 ([facility]) PredniSONE 5 MG UNK 08/18/2019 12:00:00 AM EST suspended PredniSONE 5 MG eCW1 ([facility]) PredniSONE 5 MG UNK 08/18/2019 12:00:00 AM EST suspended PredniSONE 5 MG eCW1 ([facility]) PredniSONE 5 MG UNK 08/18/2019 12:00:00 AM EST suspended PredniSONE 5 MG eCW1 ([facility]) Amlodipine 5 MG Oral Tablet AmLODIPine Besylate 5 MG AmLODIP ine Besylate 5 MG 08/18/2019 12:00:00 AM EST active 1 tablet eCW1 ([facility]) PredniSONE 5 MG UNK 08/18/2019 12:00:00 AM EST suspended PredniSONE 5 MG eCW1 ([facility]) PredniSONE 5 MG UNK 08/18/2019 12:00:00 AM EST suspended PredniSONE 5 MG eCW1 ([facility]) PredniSONE 5 MG UNK 08/18/2019 12:00:00 AM EST suspended PredniSONE 5 MG eCW1 ([facility]) PredniSONE 5 MG UNK 08/18/2019 12:00:00 AM EST suspended PredniSONE 5 MG eCW1 ([facility]) PredniSONE 5 MG UNK 08/18/2019 12:00:00 AM EST active 2 tablets x 5d, then 1 tablet 5days eCW1 ([facility]) PredniSONE 5 MG UNK 08/18/2019 12:00:00 AM EST suspended PredniSONE 5 MG eCW1 ([facility]) Amlodipine 5 MG Oral Tablet AmLODIPine Besylate 5 MG AmLODIP ine Besylate 5 MG 08/18/2019 12:00:00 AM EST active 1 tablet eCW1 ([facility]) PredniSONE 5 MG UNK 08/18/2019 12:00:00 AM EST suspended PredniSONE 5 MG eCW1 ([facility]) PredniSONE 5 MG UNK 08/18/2019 12:00:00 AM EST suspended PredniSONE 5 MG eCW1 ([facility]) PredniSONE 5 MG UNK 08/18/2019 12:00:00 AM EST suspended PredniSONE 5 MG eCW1 ([facility]) Ondansetron 4 MG Oral Tablet [Zofran] Zofran 4 MG Zofran 4 M G 08/18/2019 12:00:00 AM EST active 1 tablet eCW1 ([facility]) PredniSONE 5 MG UNK 08/18/2019 12:00:00 AM EST suspended PredniSONE 5 MG eCW1 ([facility]) PredniSONE 5 MG UNK 08/18/2019 12:00:00 AM EST suspended PredniSONE 5 MG eCW1 ([facility]) PredniSONE 5 MG UNK 08/18/2019 12:00:00 AM EST suspended PredniSONE 5 MG eCW1 ([facility]) PredniSONE 5 MG UNK 08/18/2019 12:00:00 AM EST suspended PredniSONE 5 MG eCW1 ([facility]) PredniSONE 5 MG UNK 08/18/2019 12:00:00 AM EST active 2 tablets x 5d, then 1 tablet 5days eCW1 ([facility]) PredniSONE 5 MG UNK 08/18/2019 12:00:00 AM EST suspended PredniSONE 5 MG eCW1 ([facility]) PredniSONE 5 MG UNK 08/18/2019 12:00:00 AM EST suspended PredniSONE 5 MG eCW1 ([facility]) PredniSONE 5 MG UNK 08/18/2019 12:00:00 AM EST suspended PredniSONE 5 MG eCW1 ([facility]) PredniSONE 5 MG UNK 08/18/2019 12:00:00 AM EST suspended PredniSONE 5 MG eCW1 ([facility]) Ondansetron 4 MG Oral Tablet [Zofran] Zofran 4 MG Zofran 4 M G 08/18/2019 12:00:00 AM EST active 1 tablet eCW1 ([facility]) [place] - UNK 08/15/2019 12:00:00 AM EST active [place] - eCW1 ([facility]) [place] - UNK 08/15/2019 12:00:00 AM EST active [place] - eCW1 ([facility]) [place] - UNK 08/15/2019 12:00:00 AM EST active [place] - eCW1 ([facility]) [place] - UNK 08/15/2019 12:00:00 AM EST active [place] - eCW1 ([facility]) [place] - UNK 08/15/2019 12:00:00 AM EST active [place] - eCW1 ([facility]) [place] - UNK 08/15/2019 12:00:00 AM EST active [place] - eCW1 ([facility]) [place] - UNK 08/15/2019 12:00:00 AM EST active [place] - eCW1 ([facility]) [place] - UNK 08/15/2019 12:00:00 AM EST active [place] - eCW1 ([facility]) [facility] K 08/15/2019 12:00:00 AM EST active [place] - eCW1 [facility] 12:00:00 AM EST active [place] - eCW1 ([facility]) [facility] K 08/15/2019 12:00:00 AM EST active as directed eCW1 ([facility]) [facility] - - 08/15/2019 12:00:00 AM EST activ e [place] - eCW1 ([facility]) [facility] K 08/15/2019 12:00:00 AM EST active [place] - eCW1 ([facility]) [facility] K 08/15/2019 12:00:00 AM EST active [place] - eCW1 ([facility]) [facility] - - 08/15/2019 12:00:00 AM EST activ e [place] - eCW1 ([facility]) [facility] K 08/15/2019 12:00:00 AM EST active [place] - eCW1 ([facility]) [facility] K 08/15/2019 12:00:00 AM EST active as directed eCW1 ([facility]) [facility] K 08/15/2019 12:00:00 AM EST active [place] - eCW1 ([facility]) [facility] - - 08/15/2019 12:00:00 AM EST activ e [place] - eCW1 ([facility]) [facility] K 08/15/2019 12:00:00 AM EST active [place] - eCW1 ([facility]) [facility] K 08/15/2019 12:00:00 AM EST active as directed eCW1 ([facility]) [facility] - K 08/15/2019 12:00:00 AM EST active [place] - eCW1 ([facility]) [facility] K 08/15/2019 12:00:00 AM EST active as directed eCW1 ([facility]) [place] - UNK 08/15/2019 12:00:00 AM EST active [place] - eCW1 ([facility]) doxycycline hyclate 100 MG Delayed Relea se Oral Tablet Doxycycline Hyclate 100 MG Doxycycline Hyclate 100 MG 08/13/2019 12:00:00 AM EST 1.0 {table t} suspended Doxycycline Hyclate 100 MG eCW1 ([facility]) Amlodipine 5 MG Oral Tablet AmLODIPine Besylate 5 MG AmLODIP ine Besylate 5 MG 08/13/2019 12:00:00 AM EST 1.0 {tablet} suspende d AmLODIPine Besylate 5 MG eCW1 ([facility]) Amlodipine 5 MG Oral Tablet AmLODIPine Besylate 5 MG AmLODIP ine Besylate 5 MG 08/13/2019 12:00:00 AM EST 1.0 {tablet} suspende d AmLODIPine Besylate 5 MG eCW1 ([facility]) 200 ACTUAT Albuterol 0.09 MG/ACTUAT Mete red Dose Inhaler [Ventolin] Ventolin HFA 108 (90 Base) MCG/ACT Ventolin HFA 108 (90 Base) MCG/ACT 08/13/2019 12:00:00 AM EST 2.0 {puffs_as_needed} active Ventolin HFA 108 (90 Base) MCG/ACT eCW1 ([facility]) Hydromorphone Hydrochloride 2 MG Oral Tablet Hydromorp [place] HCl 2 MG Hydromorphone HCl 2 MG 08/13/2019 12:00:00 AM EST active 4 mg eCW1 ([facility]) Amlodipine 5 MG Oral Tablet AmLODIPine Besylate 5 MG AmLODIP ine Besylate 5 MG 08/13/2019 12:00:00 AM EST active 1 tablet eCW1 ([facility]) doxycycline hyclate 100 MG Delayed Relea se Oral Tablet Doxycycline Hyclate 100 MG Doxycycline Hyclate 100 MG 08/13/2019 12:00:00 AM EST 1.0 {table t} suspended Doxycycline Hyclate 100 MG eCW1 ([facility]) Amlodipine 5 MG Oral Tablet AmLODIPine Besylate 5 MG AmLODIP ine Besylate 5 MG 08/13/2019 12:00:00 AM EST active 1 tablet eCW1 ([facility]) Prednisone 10 MG Oral Tablet PredniSONE 10 MG PredniSONE 10 MG 08/13/2019 12:00:00 AM EST suspended Predn iSONE 10 MG eCW1 ([facility]) Prednisone 10 MG Oral Tablet PredniSONE 10 MG PredniSONE 10 MG 08/13/2019 12:00:00 AM EST suspended Predn iSONE 10 MG eCW1 ([facility]) doxycycline hyclate 100 MG Delayed Relea se Oral Tablet Doxycycline Hyclate 100 MG Doxycycline Hyclate 100 MG 08/13/2019 12:00:00 AM EST 1.0 {table t} suspended Doxycycline Hyclate 100 MG eCW1 ([facility]) 200 ACTUAT Albuterol 0.09 MG/ACTUAT Mete red Dose Inhaler [Ventolin] Ventolin HFA 108 (90 Base) MCG/ACT Ventolin HFA 108 (90 Base) MCG/ACT 08/13/2019 12:00:00 AM EST active 2 puffs as needed eCW1 ([facility]) 200 ACTUAT Albuterol 0.09 MG/ACTUAT Mete red Dose Inhaler [Ventolin] Ventolin HFA 108 (90 Base) MCG/ACT Ventolin HFA 108 (90 Base) MCG/ACT 08/13/2019 12:00:00 AM EST 2.0 {puffs_as_needed} active Ventolin HFA 108 (90 Base) MCG/ACT eCW1 ([facility]) doxycycline hyclate 100 MG Delayed Relea se Oral Tablet Doxycycline Hyclate 100 MG Doxycycline Hyclate 100 MG 08/13/2019 12:00:00 AM EST 1.0 {table t} suspended Doxycycline Hyclate 100 MG eCW1 ([facility]) doxycycline hyclate 100 MG Delayed Relea se Oral Tablet Doxycycline Hyclate 100 MG Doxycycline Hyclate 100 MG 08/13/2019 12:00:00 AM EST 1.0 {table t} suspended Doxycycline Hyclate 100 MG eCW1 ([facility]) Prednisone 10 MG Oral Tablet PredniSONE 10 MG PredniSONE 10 MG 08/13/2019 12:00:00 AM EST suspended Predn iSONE 10 MG eCW1 ([facility]) Prednisone 10 MG Oral Tablet PredniSONE 10 MG PredniSONE 10 MG 08/13/2019 12:00:00 AM EST suspended Predn iSONE 10 MG eCW1 ([facility]) benzonatate 100 MG Oral Capsule Benzonatate 100 MG Benzonata te 100 MG 08/13/2019 12:00:00 AM EST active Benzona nguyen 100 MG eCW1 ([facility]) doxycycline hyclate 100 MG Delayed Relea se Oral Tablet Doxycycline Hyclate 100 MG Doxycycline Hyclate 100 MG 08/13/2019 12:00:00 AM EST 1.0 {table t} suspended Doxycycline Hyclate 100 MG eCW1 ([facility]) benzonatate 100 MG Oral Capsule Benzonatate 100 MG Benzonata te 100 MG 08/13/2019 12:00:00 AM EST active Benzona nguyen 100 MG eCW1 ([facility]) doxycycline hyclate 100 MG Delayed Relea se Oral Tablet Doxycycline Hyclate 100 MG Doxycycline Hyclate 100 MG 08/13/2019 12:00:00 AM EST 1.0 {table t} suspended Doxycycline Hyclate 100 MG eCW1 ([facility]) benzonatate 100 MG Oral Capsule Benzonatate 100 MG Benzonata te 100 MG 08/13/2019 12:00:00 AM EST active Benzona nguyen 100 MG eCW1 ([facility]) Amlodipine 5 MG Oral Tablet AmLODIPine Besylate 5 MG AmLODIP ine Besylate 5 MG 08/13/2019 12:00:00 AM EST 1.0 {tablet} suspende d AmLODIPine Besylate 5 MG eCW1 ([facility]) Amlodipine 5 MG Oral Tablet AmLODIPine Besylate 5 MG AmLODIP ine Besylate 5 MG 08/13/2019 12:00:00 AM EST 1.0 {tablet} suspende d AmLODIPine Besylate 5 MG eCW1 ([facility]) Amlodipine 5 MG Oral Tablet AmLODIPine Besylate 5 MG AmLODIP ine Besylate 5 MG 08/13/2019 12:00:00 AM EST 1.0 {tablet} suspende d AmLODIPine Besylate 5 MG eCW1 ([facility]) benzonatate 100 MG Oral Capsule Benzonatate 100 MG Benzonata te 100 MG 08/13/2019 12:00:00 AM EST active 1 cap eCW1 ([facility]) doxycycline hyclate 100 MG Delayed Relea se Oral Tablet Doxycycline Hyclate 100 MG Doxycycline Hyclate 100 MG 08/13/2019 12:00:00 AM EST 1.0 {table t} suspended Doxycycline Hyclate 100 MG eCW1 ([facility]) benzonatate 100 MG Oral Capsule Benzonatate 100 MG Benzonata te 100 MG 08/13/2019 12:00:00 AM EST active Benzona nguyen 100 MG eCW1 ([facility]) 200 ACTUAT Albuterol 0.09 MG/ACTUAT Mete red Dose Inhaler [Ventolin] Ventolin HFA 108 (90 Base) MCG/ACT Ventolin HFA 108 (90 Base) MCG/ACT 08/13/2019 12:00:00 AM EST 2.0 {puffs_as_needed} active Ventolin HFA 108 (90 Base) MCG/ACT eCW1 ([facility]) benzonatate 100 MG Oral Capsule Benzonatate 100 MG Benzonata te 100 MG 08/13/2019 12:00:00 AM EST active Benzona nguyen 100 MG eCW1 ([facility]) Prednisone 10 MG Oral Tablet PredniSONE 10 MG PredniSONE 10 MG 08/13/2019 12:00:00 AM EST suspended Predn iSONE 10 MG eCW1 ([facility]) benzonatate 100 MG Oral Capsule Benzonatate 100 MG Benzonata te 100 MG 08/13/2019 12:00:00 AM EST active 1 cap eCW1 ([facility]) Amlodipine 5 MG Oral Tablet AmLODIPine Besylate 5 MG AmLODIP ine Besylate 5 MG 08/13/2019 12:00:00 AM EST 1.0 {tablet} suspende d AmLODIPine Besylate 5 MG eCW1 ([facility]) doxycycline hyclate 100 MG Delayed Relea se Oral Tablet Doxycycline Hyclate 100 MG Doxycycline Hyclate 100 MG 08/13/2019 12:00:00 AM EST suspended 1 tablet eCW1 ([facility]) Amlodipine 5 MG Oral Tablet AmLODIPine Besylate 5 MG AmLODIP ine Besylate 5 MG 08/13/2019 12:00:00 AM EST suspended 1 tablet eCW1 ([facility]) benzonatate 100 MG Oral Capsule Benzonatate 100 MG Benzonata te 100 MG 08/13/2019 12:00:00 AM EST active Benzona nguyen 100 MG eCW1 ([facility]) doxycycline hyclate 100 MG Delayed Relea se Oral Tablet Doxycycline Hyclate 100 MG Doxycycline Hyclate 100 MG 08/13/2019 12:00:00 AM EST 1.0 {table t} suspended Doxycycline Hyclate 100 MG eCW1 ([facility]) 200 ACTUAT Albuterol 0.09 MG/ACTUAT Mete red Dose Inhaler [Ventolin] Ventolin HFA 108 (90 Base) MCG/ACT Ventolin HFA 108 (90 Base) MCG/ACT 08/13/2019 12:00:00 AM EST active 2 puffs as needed eCW1 ([facility]) Amlodipine 5 MG Oral Tablet AmLODIPine Besylate 5 MG AmLODIP ine Besylate 5 MG 08/13/2019 12:00:00 AM EST 1.0 {tablet} suspende d AmLODIPine Besylate 5 MG eCW1 ([facility]) Prednisone 10 MG Oral Tablet PredniSONE 10 MG PredniSONE 10 MG 08/13/2019 12:00:00 AM EST suspended Predn iSONE 10 MG eCW1 ([facility]) Prednisone 10 MG Oral Tablet PredniSONE 10 MG PredniSONE 10 MG 08/13/2019 12:00:00 AM EST suspended Predn iSONE 10 MG eCW1 ([facility]) benzonatate 100 MG Oral Capsule Benzonatate 100 MG Benzonata te 100 MG 08/13/2019 12:00:00 AM EST active Benzona nguyen 100 MG eCW1 ([facility]) doxycycline hyclate 100 MG Delayed Relea se Oral Tablet Doxycycline Hyclate 100 MG Doxycycline Hyclate 100 MG 08/13/2019 12:00:00 AM EST 1.0 {table t} suspended Doxycycline Hyclate 100 MG eCW1 ([facility]) 200 ACTUAT Albuterol 0.09 MG/ACTUAT Mete red Dose Inhaler [Ventolin] Ventolin HFA 108 (90 Base) MCG/ACT Ventolin HFA 108 (90 Base) MCG/ACT 08/13/2019 12:00:00 AM EST 2.0 {puffs_as_needed} active Ventolin HFA 108 (90 Base) MCG/ACT eCW1 ([facility]) 200 ACTUAT Albuterol 0.09 MG/ACTUAT Mete red Dose Inhaler [Ventolin] Ventolin HFA 108 (90 Base) MCG/ACT Ventolin HFA 108 (90 Base) MCG/ACT 08/13/2019 12:00:00 AM EST 2.0 {puffs_as_needed} active Ventolin HFA 108 (90 Base) MCG/ACT eCW1 ([facility]) doxycycline hyclate 100 MG Delayed Relea se Oral Tablet Doxycycline Hyclate 100 MG Doxycycline Hyclate 100 MG 08/13/2019 12:00:00 AM EST 1.0 {table t} suspended Doxycycline Hyclate 100 MG eCW1 ([facility]) Amlodipine 5 MG Oral Tablet AmLODIPine Besylate 5 MG AmLODIP ine Besylate 5 MG 08/13/2019 12:00:00 AM EST 1.0 {tablet} suspende d AmLODIPine Besylate 5 MG eCW1 ([facility]) benzonatate 100 MG Oral Capsule Benzonatate 100 MG Benzonata te 100 MG 08/13/2019 12:00:00 AM EST active Benzona nguyen 100 MG eCW1 ([facility]) doxycycline hyclate 100 MG Delayed Relea se Oral Tablet Doxycycline Hyclate 100 MG Doxycycline Hyclate 100 MG 08/13/2019 12:00:00 AM EST 1.0 {table t} suspended Doxycycline Hyclate 100 MG eCW1 ([facility]) Prednisone 10 MG Oral Tablet PredniSONE 10 MG PredniSONE 10 MG 08/13/2019 12:00:00 AM EST suspended Predn iSONE 10 MG eCW1 ([facility]) doxycycline hyclate 100 MG Delayed Relea se Oral Tablet Doxycycline Hyclate 100 MG Doxycycline Hyclate 100 MG 08/13/2019 12:00:00 AM EST 1.0 {table t} suspended Doxycycline Hyclate 100 MG eCW1 ([facility]) doxycycline hyclate 100 MG Delayed Relea se Oral Tablet Doxycycline Hyclate 100 MG Doxycycline Hyclate 100 MG 08/13/2019 12:00:00 AM EST active 1 tablet eCW1 ([facility]) benzonatate 100 MG Oral Capsule Benzonatate 100 MG Benzonata te 100 MG 08/13/2019 12:00:00 AM EST active Benzona nguyen 100 MG eCW1 ([facility]) 200 ACTUAT Albuterol 0.09 MG/ACTUAT Mete red Dose Inhaler [Ventolin] Ventolin HFA 108 (90 Base) MCG/ACT Ventolin HFA 108 (90 Base) MCG/ACT 08/13/2019 12:00:00 AM EST 2.0 {puffs_as_needed} active Ventolin HFA 108 (90 Base) MCG/ACT eCW1 ([facility]) benzonatate 100 MG Oral Capsule Benzonatate 100 MG Benzonata te 100 MG 08/13/2019 12:00:00 AM EST active Benzona nguyen 100 MG eCW1 ([facility]) Prednisone 10 MG Oral Tablet PredniSONE 10 MG PredniSONE 10 MG 08/13/2019 12:00:00 AM EST suspended Predn iSONE 10 MG eCW1 ([facility]) OxyCODONE HCl ER 15 MG OxyCODONE HCl ER 15 MG 08/13/2019 12:00:[address] active 1 tablet eCW1 ([facility]) benzonatate 100 MG Oral Capsule Benzonatate 100 MG Benzonata te 100 MG 08/13/2019 12:00:00 AM EST active Benzona nguyen 100 MG eCW1 ([facility]) Prednisone 10 MG Oral Tablet PredniSONE 10 MG PredniSONE 10 MG 08/13/2019 12:00:00 AM EST suspended Predn iSONE 10 MG eCW1 ([facility]) 200 ACTUAT Albuterol 0.09 MG/ACTUAT Mete red Dose Inhaler [Ventolin] Ventolin HFA 108 (90 Base) MCG/ACT Ventolin HFA 108 (90 Base) MCG/ACT 08/13/2019 12:00:00 AM EST 2.0 {puffs_as_needed} active Ventolin HFA 108 (90 Base) MCG/ACT eCW1 ([facility]) Amlodipine 5 MG Oral Tablet AmLODIPine Besylate 5 MG AmLODIP ine Besylate 5 MG 08/13/2019 12:00:00 AM EST 1.0 {tablet} suspende d AmLODIPine Besylate 5 MG eCW1 ([facility]) 200 ACTUAT Albuterol 0.09 MG/ACTUAT Mete red Dose Inhaler [Ventolin] Ventolin HFA 108 (90 Base) MCG/ACT Ventolin HFA 108 (90 Base) MCG/ACT 08/13/2019 12:00:00 AM EST 2.0 {puffs_as_needed} active Ventolin HFA 108 (90 Base) MCG/ACT eCW1 ([facility]) doxycycline hyclate 100 MG Delayed Relea se Oral Tablet Doxycycline Hyclate 100 MG Doxycycline Hyclate 100 MG 08/13/2019 12:00:00 AM EST 1.0 {table t} suspended Doxycycline Hyclate 100 MG eCW1 ([facility]) benzonatate 100 MG Oral Capsule Benzonatate 100 MG Benzonata te 100 MG 08/13/2019 12:00:00 AM EST active Benzona nguyen 100 MG eCW1 ([facility]) 200 ACTUAT Albuterol 0.09 MG/ACTUAT Mete red Dose Inhaler [Ventolin] Ventolin HFA 108 (90 Base) MCG/ACT Ventolin HFA 108 (90 Base) MCG/ACT 08/13/2019 12:00:00 AM EST 2.0 {puffs_as_needed} active Ventolin HFA 108 (90 Base) MCG/ACT eCW1 ([facility]) doxycycline hyclate 100 MG Delayed Relea se Oral Tablet Doxycycline Hyclate 100 MG Doxycycline Hyclate 100 MG 08/13/2019 12:00:00 AM EST 1.0 {table t} suspended Doxycycline Hyclate 100 MG eCW1 ([facility]) Prednisone 10 MG Oral Tablet PredniSONE 10 MG PredniSONE 10 MG 08/13/2019 12:00:00 AM EST suspended Predn iSONE 10 MG eCW1 ([facility]) Amlodipine 5 MG Oral Tablet AmLODIPine Besylate 5 MG AmLODIP ine Besylate 5 MG 08/13/2019 12:00:00 AM EST 1.0 {tablet} suspende d AmLODIPine Besylate 5 MG eCW1 ([facility]) Prednisone 10 MG Oral Tablet PredniSONE 10 MG PredniSONE 10 MG 08/13/2019 12:00:00 AM EST suspended Predn iSONE 10 MG eCW1 ([facility]) benzonatate 100 MG Oral Capsule Benzonatate 100 MG Benzonata te 100 MG 08/13/2019 12:00:00 AM EST active Benzona nguyen 100 MG eCW1 ([facility]) Prednisone 10 MG Oral Tablet PredniSONE 10 MG PredniSONE 10 MG 08/13/2019 12:00:00 AM EST suspended Predn iSONE 10 MG eCW1 ([facility]) PredniSONE 10 MG PredniSONE 10 MG 08/13/2019 12:00:00 AM EST active as directed eCW1 ([facility]) 200 ACTUAT Albuterol 0.09 MG/ACTUAT Mete red Dose Inhaler [Ventolin] Ventolin HFA 108 (90 Base) MCG/ACT Ventolin HFA 108 (90 Base) MCG/ACT 08/13/2019 12:00:00 AM EST 2.0 {puffs_as_needed} active Ventolin HFA 108 (90 Base) MCG/ACT eCW1 ([facility]) benzonatate 100 MG Oral Capsule Benzonatate 100 MG Benzonata te 100 MG 08/13/2019 12:00:00 AM EST active Benzona nguyen 100 MG eCW1 ([facility]) Prednisone 10 MG Oral Tablet PredniSONE 10 MG PredniSONE 10 MG 08/13/2019 12:00:00 AM EST suspended Predn iSONE 10 MG eCW1 ([facility]) Amlodipine 5 MG Oral Tablet AmLODIPine Besylate 5 MG AmLODIP ine Besylate 5 MG 08/13/2019 12:00:00 AM EST 1.0 {tablet} suspende d AmLODIPine Besylate 5 MG eCW1 ([facility]) 200 ACTUAT Albuterol 0.09 MG/ACTUAT Mete red Dose Inhaler [Ventolin] Ventolin HFA 108 (90 Base) MCG/ACT Ventolin HFA 108 (90 Base) MCG/ACT 08/13/2019 12:00:00 AM EST 2.0 {puffs_as_needed} active Ventolin HFA 108 (90 Base) MCG/ACT eCW1 ([facility]) doxycycline hyclate 100 MG Delayed Relea se Oral Tablet Doxycycline Hyclate 100 MG Doxycycline Hyclate 100 MG 08/13/2019 12:00:00 AM EST 1.0 {table t} suspended Doxycycline Hyclate 100 MG eCW1 ([facility]) benzonatate 100 MG Oral Capsule Benzonatate 100 MG Benzonata te 100 MG 08/13/2019 12:00:00 AM EST active Benzona nguyen 100 MG eCW1 ([facility]) Amlodipine 5 MG Oral Tablet AmLODIPine Besylate 5 MG AmLODIP ine Besylate 5 MG 08/13/2019 12:00:00 AM EST 1.0 {tablet} suspende d AmLODIPine Besylate 5 MG eCW1 ([facility]) Prednisone 10 MG Oral Tablet PredniSONE 10 MG PredniSONE 10 MG 08/13/2019 12:00:00 AM EST suspended Predn iSONE 10 MG eCW1 ([facility]) PredniSONE 10 MG PredniSONE 10 MG 08/13/2019 12:00:00 AM EST active as directed eCW1 ([facility]) doxycycline hyclate 100 MG Delayed Relea se Oral Tablet Doxycycline Hyclate 100 MG Doxycycline Hyclate 100 MG 08/13/2019 12:00:00 AM EST 1.0 {table t} suspended Doxycycline Hyclate 100 MG eCW1 ([facility]) Amlodipine 5 MG Oral Tablet AmLODIPine Besylate 5 MG AmLODIP ine Besylate 5 MG 08/13/2019 12:00:00 AM EST 1.0 {tablet} suspende d AmLODIPine Besylate 5 MG eCW1 ([facility]) benzonatate 100 MG Oral Capsule Benzonatate 100 MG Benzonata te 100 MG 08/13/2019 12:00:00 AM EST active Benzona nguyen 100 MG eCW1 ([facility]) Amlodipine 5 MG Oral Tablet AmLODIPine Besylate 5 MG AmLODIP ine Besylate 5 MG 08/13/2019 12:00:00 AM EST 1.0 {tablet} suspende d AmLODIPine Besylate 5 MG eCW1 ([facility]) doxycycline hyclate 100 MG Delayed Relea se Oral Tablet Doxycycline Hyclate 100 MG Doxycycline Hyclate 100 MG 08/13/2019 12:00:00 AM EST 1.0 {table t} suspended Doxycycline Hyclate 100 MG eCW1 ([facility]) Prednisone 10 MG Oral Tablet PredniSONE 10 MG PredniSONE 10 MG 08/13/2019 12:00:00 AM EST suspended Predn iSONE 10 MG eCW1 ([facility]) duloxetine 30 MG Delayed Release Oral Capsule [Cymbalt a] Cymbalta 30 MG Cymbalta 30 MG 08/13/2019 12:00:00 AM EST active 1 cap eCW1 ([facility]) duloxetine 30 MG Delayed Release Oral Capsule [Cymbalt a] Cymbalta 30 MG Cymbalta 30 MG 08/13/2019 12:00:00 AM EST active 1 cap eCW1 ([facility]) doxycycline hyclate 100 MG Delayed Relea se Oral Tablet Doxycycline Hyclate 100 MG Doxycycline Hyclate 100 MG 08/13/2019 12:00:00 AM EST 1.0 {table t} suspended Doxycycline Hyclate 100 MG eCW1 ([facility]) benzonatate 100 MG Oral Capsule Benzonatate 100 MG Benzonata te 100 MG 08/13/2019 12:00:00 AM EST active Benzona nguyen 100 MG eCW1 ([facility]) Prednisone 10 MG Oral Tablet PredniSONE 10 MG PredniSONE 10 MG 08/13/2019 12:00:00 AM EST suspended Predn iSONE 10 MG eCW1 ([facility]) 200 ACTUAT Albuterol 0.09 MG/ACTUAT Mete red Dose Inhaler [Ventolin] Ventolin HFA 108 (90 Base) MCG/ACT Ventolin HFA 108 (90 Base) MCG/ACT 08/13/2019 12:00:00 AM EST active 2 puffs as needed eCW1 ([facility]) Amlodipine 5 MG Oral Tablet AmLODIPine Besylate 5 MG AmLODIP ine Besylate 5 MG 08/13/2019 12:00:00 AM EST 1.0 {tablet} suspende d AmLODIPine Besylate 5 MG eCW1 ([facility]) doxycycline hyclate 100 MG Delayed Relea se Oral Tablet Doxycycline Hyclate 100 MG Doxycycline Hyclate 100 MG 08/13/2019 12:00:00 AM EST 1.0 {table t} suspended Doxycycline Hyclate 100 MG eCW1 ([facility]) benzonatate 100 MG Oral Capsule Benzonatate 100 MG Benzonata te 100 MG 08/13/2019 12:00:00 AM EST active Benzona nguyen 100 MG eCW1 ([facility]) benzonatate 100 MG Oral Capsule Benzonatate 100 MG Benzonata te 100 MG 08/13/2019 12:00:00 AM EST active 1 cap eCW1 ([facility]) benzonatate 100 MG Oral Capsule Benzonatate 100 MG Benzonata te 100 MG 08/13/2019 12:00:00 AM EST active Benzona nguyen 100 MG eCW1 ([facility]) doxycycline hyclate 100 MG Delayed Relea se Oral Tablet Doxycycline Hyclate 100 MG Doxycycline Hyclate 100 MG 08/13/2019 12:00:00 AM EST active 1 tablet eCW1 ([facility]) Amlodipine 5 MG Oral Tablet AmLODIPine Besylate 5 MG AmLODIP ine Besylate 5 MG 08/13/2019 12:00:00 AM EST 1.0 {tablet} suspende d AmLODIPine Besylate 5 MG eCW1 ([facility]) Amlodipine 5 MG Oral Tablet AmLODIPine Besylate 5 MG AmLODIP ine Besylate 5 MG 08/13/2019 12:00:00 AM EST 1.0 {tablet} suspende d AmLODIPine Besylate 5 MG eCW1 ([facility]) benzonatate 100 MG Oral Capsule Benzonatate 100 MG Benzonata te 100 MG 08/13/2019 12:00:00 AM EST active Benzona nguyen 100 MG eCW1 ([facility]) PredniSONE 10 MG PredniSONE 10 MG 08/13/2019 12:00:00 AM EST active as directed eCW1 ([facility]) OxyCODONE HCl ER 15 MG OxyCODONE HCl ER 15 MG 08/13/2019 12:00:[address] active 1 tablet eCW1 ([facility]) Hydromorphone Hydrochloride 2 MG Oral Tablet Hydromorp [place] HCl 2 MG Hydromorphone HCl 2 MG 08/13/2019 12:00:00 AM EST active 4 mg eCW1 ([facility]) duloxetine 30 MG Delayed Release Oral Capsule [Cymbalt a] Cymbalta 30 MG Cymbalta 30 MG 08/13/2019 12:00:00 AM EST active 1 cap eCW1 ([facility]) 200 ACTUAT Albuterol 0.09 MG/ACTUAT Mete red Dose Inhaler [Ventolin] Ventolin HFA 108 (90 Base) MCG/ACT Ventolin HFA 108 (90 Base) MCG/ACT 08/13/2019 12:00:00 AM EST active 2 puffs as needed eCW1 ([facility]) Amlodipine 5 MG Oral Tablet AmLODIPine Besylate 5 MG AmLODIP ine Besylate 5 MG 08/13/2019 12:00:00 AM EST 1.0 {tablet} suspende d AmLODIPine Besylate 5 MG eCW1 ([facility]) Prednisone 10 MG Oral Tablet PredniSONE 10 MG PredniSONE 10 MG 08/13/2019 12:00:00 AM EST suspended Predn iSONE 10 MG eCW1 ([facility]) Amlodipine 5 MG Oral Tablet AmLODIPine Besylate 5 MG AmLODIP ine Besylate 5 MG 08/13/2019 12:00:00 AM EST 1.0 {tablet} suspende d AmLODIPine Besylate 5 MG eCW1 ([facility]) Amlodipine 5 MG Oral Tablet AmLODIPine Besylate 5 MG AmLODIP ine Besylate 5 MG 08/13/2019 12:00:00 AM EST 1.0 {tablet} suspende d AmLODIPine Besylate 5 MG eCW1 ([facility]) Prednisone 10 MG Oral Tablet PredniSONE 10 MG PredniSONE 10 MG 08/13/2019 12:00:00 AM EST suspended Predn iSONE 10 MG eCW1 ([facility]) benzonatate 100 MG Oral Capsule Benzonatate 100 MG Benzonata te 100 MG 08/13/2019 12:00:00 AM EST active 1 cap eCW1 ([facility]) Prednisone 10 MG Oral Tablet PredniSONE 10 MG PredniSONE 10 MG 08/13/2019 12:00:00 AM EST suspended Predn iSONE 10 MG eCW1 ([facility]) OxyCODONE HCl ER 15 MG OxyCODONE HCl ER 15 MG 08/05/2019 12:00:[address] active 1 tablet eCW1 ([facility]) Hydromorphone Hydrochloride 2 MG Oral Tablet [facility] [place] HCl 2 MG Hydromorphone HCl 2 MG 07/11/2019 12:00:00 AM EST active 1 tablet eCW1 ([facility]) OxyCODONE HCl ER 15 MG OxyCODONE HCl ER 15 MG 07/11/2019 12:00:[address] active 1 tablet eCW1 ([facility]) OxyCODONE HCl ER 15 MG OxyCODONE HCl ER 15 MG 07/06/2019 12:00:[address] active 1 tablet eCW1 ([facility]) Hydromorphone Hydrochloride 2 MG Oral Tablet [facility] [place] HCl 2 MG Hydromorphone HCl 2 MG 07/06/2019 12:00:00 AM EST active 1 tablet eCW1 ([facility]) clopidogrel 75 MG Oral Tablet clopidogrel (PLAVIX) 75 MG tablet clopidogrel (PLAVIX) 75 MG tablet 75 mg Oral aborted Ta ke 75 mg by mouth daily [facility] Insurance Providers Payer name Policy type / Coverage type Policy ID Covered republican ID Covered republican's relationship to wilson Policy Wilson Plan Information MEDICARE [id number] SP [id number] [facility] FEDERAL EMPLOYEE PROGRAM [id number] SP [id number] [facility] FEDERAL EMPLOYEE PROGRAM [id number] SP [id number] DEPT OF LABOR [id number] SP [id number] MERGED WITH [facility] FEDERAL B [id number] S [id number] MEDICARE C [id number] S [id number] EXCELLUS BS [id number] MEDICARE [id number] EXCELLUS BS [id number] Radha [id number] MEDICARE [id number] Radha [id number] X43 Medicare C [id number] SELF [id number] X43 [employer] Blue Shield P [id number] SELF [id number] ANSI-Commercial [id number] ANSI-Commercial [id number] ANSI-Medicare Part B [id number] ANSI-Commercial [id number] ANSI-Medicare Part B [id number] ANSI-Commercial [id number] ANSI-Medicare Part B [id number] ANSI-Commercial [id number] ANSI-Commercial [id number] ANSI-Commercial [id number] ANSI-Commercial [id number] ANSI-Medicare Part B [id number] ANSI-Commercial [id number] ANSI-Commercial [id number] ANSI-Medicare Part B [id number] ANSI-Commercial [id number] ANSI-Commercial [id number] ANSI-Medicare Part B [id number] ANSI-Commercial [id number]64547ii 45f45074-12u0-7533-5431-5i40710779gg ANSI-Medicare Part B 013479bc-e9a8-866t-sl85-x697s3v227pi 367437tg-y7z6-298j-ei65-r954h9p682rg ANSI-Commercial ds862483-0oyw-35qq-ss60-08v1nr63o317 iz332275-1mlo-78to-jj46-65s4ub61l987 ANSI-Commercial 126k0q55-2tr3-821p-75ve-801ro9hl46fp 340u8j52-2ck8-292q-89pn-702ty8vl97ln ANSI-Commercial ftmq4e31-3cx7-8002-n51w-4f843z27c2fz saaj2j76-5nv5-2162-v58t-3v300f85k1vh ANSI-Medicare Part B bq42q85a-92y6-9s72-xh20-g314oj79j108 oe14b24e-85c2-8g95-si25-v218uf06n091 ANSI-Medicare Part B [id number]-2313-89dm-6x7x-2bk32t43nk2p 6915784h-6474-47xu-8r8c-4ie60n61sx3c ANSI-Commercial 8f6c2z57-8845-7123-in46-sd1k3i05932e 7g5y7v85-0280-8067-vf53-ia4w4x04130i ANSI-Commercial km99k951-3xm9-1sbp-g9s3-5h898ey3kics hf46j075-8ke2-4pry-u7o0-5k074ch5qrgg ANSI-Commercial h459t1b7-2li0-5l87-798e-s43916uv4gr6 s861v0z7-5nz8-0d15-758y-k43057mr2av4 ANSI-Commercial 677505z8-54d3-8j9o-2dd9-4a82148060v2 194262r6-20n0-2k6q-8ri1-2d71578391e9 ANSI-Medicare Part B 7ch4h443-2y6u-837m-2361-i1f01e5vv681 1sw1c980-6c3z-213j-7934-u6w76z5if119 ANSI-Commercial 750d9837-99z4-3q4b-qx83-8qd0if131159 128v8920-28o6-4s3u-sh09-4qr8ma788695 ANSI-Medicare Part B r93i14e5-7581-3242-rx03-wxu00x09tcee i74i90u2-5079-9085-ti15-oqo24a56tjkd ANSI-Commercial 327f8655-c80s-57q2-z85k-o64ycw47e870 878w1876-b85v-51l0-q34z-l37ygq00d875 ANSI-Commercial 95bjq135-7edm-4iyl-5641-56m5071521bi 71cvx723-0zmc-5oij-7812-67p8450838tj ANSI-Medicare Part B pvm084d8-2j5j-9m23-4tn1-cpd17uqbg2yz srn304s8-2c5n-4f94-2vx1-btf24dvcj7le ANSI-Commercial g1798z46-sv01-232v-5zh0-abzk82i42841 w7696b19-ls13-466t-2zm4-aotl76l18851 ANSI-Commercial 31106375-96t0-1w8g-408q-4ov5s7nr53ru 03953449-58m0-1h7q-043x-0za1p2xt39ez ANSI-Commercial 26474ow8-054a-7338-6008-445468k9986n 74096zh4-132d-5804-0705-796975p9977l ANSI-Medicare Part B 6o820a88-1rmn-068x-r5qf-0r43666f3839 3c401y13-9sxi-531t-x1ve-0d65391h4760 ANSI-Commercial 90n29667-3r5b-4ql2-t070-z96vh1f3bk31 77g86099-5n7l-3bg9-i342-x41vb1c3cp07 ANSI-Medicare Part B 2r20o091-ni17-2o24-739o-72yp632881zf 9l76p316-mg01-4f60-567c-82tr147858rx ANSI-Commercial c33z6047-trw6-0384-3782-bd7071678359 i82j6302-dua9-0032-8794-yi5859540301 ANSI-Commercial s4uxs61i-45qc-89bc-v0a3-0t68kxg37009 m0zzn05l-92ez-18cm-t1o3-3j58rab43091 ANSI-Medicare Part B 2scjg07k-360h-2i4r-z2z2-z85949i8a598 6ttrg47i-439m-2u2k-v0r0-e04646y0k878 ANSI-Commercial 87z05165-n484-8288-5n5d-7zw6b425cnn0 71f66394-d957-2732-7a6q-2aq2e613jbe4 ANSI-Commercial qh1v2397-0c1y-3085-7110-9sp3qq0f8tt6 xy1a2074-3m9d-6138-8796-8ag1ga7n5ig2 ANSI-Commercial 2x80gf09-u415-24s6-80w8-5a085u7e0v6p 4n33km89-j712-86e8-92p3-5h062a1l9i3y ANSI-Medicare Part B t83r5909-23a5-592a-z294-8293v856c10p v43y3905-95q9-515y-o554-4840w580y53x ANSI-Commercial 1kr02117-52f4-77oq-5f2i-47l5u912a7h0 7qr08829-57d1-03zk-8l6x-11v4t293p4m1 ANSI-Medicare Part B p235p332-9cd5-3k51-m1fe-3q5i3u945ko5 j426i705-8gr8-5f17-k9pl-7j7a4g120jo6 ANSI-Commercial 99383865-55l8-2478-l3k3-b737389i2a16 64406074-26r7-1390-r0i7-n044584z5n46 ANSI-Commercial 859955ta-6045-5on6-c973-eb14f86cq4o5 493806kz-5271-1gw2-p226-il17c39gn6a9 ANSI-Commercial 491124r5-3441-2t41-rkd4-tf5286741k92 941465v7-0819-3r04-azj5-iy3517535l01 ANSI-Medicare Part B 719bk3yd-32b6-9uo5-7514-77c2701esya0 975pa3pq-71m2-9rt5-8747-21h8941usvz3 ANSI-Medicare Part B 82o751w4-h2yz-1687-c286-00rh06tr92n2 28j930t7-g5cl-8273-c750-29xo62of67v8 ANSI-Commercial 2149q77w-13np-4i00-t3ka-3484375920ag 7007e50r-69ns-8e50-y4gd-9596395196ef ANSI-Commercial 694ttic8-rck6-96h0-u58c-95a89cn159el 706ncew4-ayb0-92s9-b33d-67c82zk692kx ANSI-Commercial 942c909b-8ioy-15q8-0t2v-95726civ7vz4 360n260p-7ufr-91h9-3a3p-66632bix8br1 ANSI-Medicare Part B 8m635880-9418-6hc3-9446-93so649b693m 5b354276-4475-1id7-0630-06ez527f217x ANSI-Commercial x0108y73-q25p-8r15-138z-z98507y46184 i1644f97-k84k-7x45-027w-k49425v83351 ANSI-Commercial 1jw95960-6th7-7ty9-6117-8504616z763n 3xk01629-4ka5-8xl5-0702-2232897k154q ANSI-Medicare Part B -3u24-9i1q-j638-d446no869c38 elsoz920-2j01-6z7m-f748-e621cg986t56 ANSI-Commercial 9jj5zw33-45r9-32si-wp3m-0a4u5n6lgz02 7mp6lj07-24k0-84ei-lm5e-0q9k1x3eio71 ANSI-Commercial 604277x2-87my-190g-b276-b04242az0d16 584977t4-27ag-898h-q417-a60971ob6o53 ANSI-Commercial 8poc710n-6o4m-3751-9b10-p13807qn1323 6mna957v-7n7h-7903-5y76-g51620rn0246 ANSI-Medicare Part B z049wm4t-woe6-26q3-2d93-boi94722c24t m654xj2x-mfg7-37m8-7i74-boc91310r74v ANSI-Medicare Part B ojs2x2y6-vx0p-9p7a-6km4-3367y895z0lw wef8u5u6-mi4i-0i4d-5rz3-6795r718o1km ANSI-Commercial 2p1of8n8-02x1-6o2a-zi93-c1a43c4c4ll3 0q4xn4c0-41z4-1w7u-wc33-w0f94a1o0ig1 ANSI-Commercial 993573jb-80x7-5676-r953-7r994e071n0d 366690jl-30h1-6196-p020-3y201v349z2i ANSI-Commercial m73703r6-zr78-8oy9-kb70-po52400g6chv e91244r2-kq06-3zd7-tu90-qd90450y7yzz ANSI-Commercial 351f291r-6iim-1x46-09d2-o0x33g447xxl 265d503v-2qsr-3c62-63x5-v7f36r221epn ANSI-Medicare Part B 0l66n64o-f974-77gg-6j89-z126j733gp3q 1f04x18m-z613-43bz-3l94-p800e557yc2w ANSI-Commercial z541hs8j-6bp8-085w-7464-ao48m0t7rv15 s389ri6c-2tf6-808s-6603-lg62h9b2aw11 ANSI-Commercial jr631614-4317-8id4-up0p-csr3756599i1 jt920992-0581-8iw4-dg8p-xcn5244124j3 ANSI-Medicare Part B 46uelfhr-t9j7-0711a8p0-5788-i3pw-m37t7xd6dnqz 51jqneel-w6v7-7010s9d2-2119-g4oc-a70t4tl9nuzj ANSI-Commercial 03968l25-0067-7647-3yq7-6306087565o8 09655t99-9050-1917-3zi5-2564400848n9 ANSI-Medicare Part B u81w7g93-o746-6f31-uo88-722894947484 s10d8y73-o132-7s71-hs43-228181706634 ANSI-Commercial fh81652y-3n52-105t-4s49-823t46g8u3k2 pi35854c-2x96-140r-0e42-022p92h1u0q0 ANSI-Medicare Part B q6585405-uz77-5q89-xm4u-w149p04zdn45 s2205962-zh75-6l20-vn5u-c365b78wcp01 ANSI-Commercial 2rd8nq33-046g-4t10-6165-o08235t05rgj 1ls7qx22-333f-7p13-3314-i97479b74ebb ANSI-Commercial 1u3p0759-8525-560v-2mi8-4578159e6a90 4o9i1114-2404-943u-7bn7-5231197n0z56 ANSI-Commercial vh58vzj9-043f-58u2-ew28-a86702zi1pde cj40wdu2-370e-95b9-mz51-e24159dv5eaz ANSI-Medicare Part B c85d42u2-usln-1585-0183-00y5p612197u a26v84z5-ffts-0632-9876-33z8l214594w ANSI-Commercial zkq88796-8v22-35ps-pr09-5z05pp614j19 jxo61183-8l66-28qu-ow38-2k89nz754m43 ANSI-Commercial 49v10hc3-57q6-867f-0s6x-47u2ab1o746i 44q26vf8-74w5-253u-5g8b-60u0yt4x855m ANSI-Medicare Part B 85133c07-rj11-3633-o79y-0t8v55b1828y 35124w68-cu09-0028-k95s-1t8d33k4569q ANSI-Commercial t3t2d5d2-016j-5n83-dhd0-v26d240969r4 k8p1a1o0-498b-0m95-cqt7-v40i923294j8 ANSI-Commercial oyc66216-638c-5752-89jp-9r895q703378 lum13630-843o-7707-00sn-6r865i607262 ANSI-Commercial i75d02cg-b8o0-71t2-71g8-kous44790j58 z32e99fk-j5i8-79a0-87w2-kpin60875r69 ANSI-Medicare Part B pw041951-u449-4804-9n8i-o198r11r18a0 re276251-i572-6317-5e9h-g010u87k81s3 ANSI-Commercial 31597698-2k6v-6443-r338-dpianq182w0r 90441959-5h3v-8443-c272-tkhryf766r2x ANSI-Commercial g22h5kx2-1j2z-506b-5172-82811xf80624 r09s0lo8-2u5e-265w-5849-27476cy12081 ANSI-Medicare Part B pa2u1v34-4aog-3633-1845-2yn0o9570181 sz0y9n11-7zxg-2760-1726-0xr7x0752751 ANSI-Commercial 42q66jb3-i171-8028-883o-309ctk7d51by 63a90rc6-d442-7754-173l-048oha1o82xz ANSI-Commercial txat1l86-0w93-5wj1-09ay-e272044u14c2 ecel2j87-5m84-4fh9-42hr-b400083z06y2 ANSI-Medicare Part B 7mf783aa-9h61-9014-4220-z50k5zm8kr24 6vn308kt-0b84-8164-4216-b93r0un0nh88 DEPT OF LAB[employer] [id number] ANSI-Medicare Part B o7089949-g2v4-481m-g975-4737720f4evy y8975484-b3z3-108b-c605-8928837m5vpz ANSI-Commercial 9e604781-3e3e-9w80-332r-a5i662ap37m9 3w198747-6e9x-8z69-014u-i5z788vk91y1 ANSI-Commercial 4tg01ylb-6i16-1n73-vp83-9e5514dqm257 4pd02ezk-8g85-8q38-ol25-9z6286pxk018 ANSI-Medicare Part B 18cq03o4-zz6q-681d-2de2-c61j159ez197 45qs28o5-ri2n-226m-1pp6-f73a665fl321 ANSI-Commercial 69989433-7xtk-173w-u14m-7734st7u48p6 30335676-3rmm-836s-r66c-4990ko3e20r8 ANSI-Commercial sv35j9ny-914j-7ahu-p539-7qx1kspj8w2x er52b1tt-864w-5xtx-y138-7ta8pekg2g1n ANSI-Commercial y004e03x-9189-2v35-z2r5-09945831ytz6 j838v37n-1050-7p57-v4d1-47890864rck4 ANSI-Medicare Part B u617c52r-k7sf-1418-y061-w726220u4i5t q016n74y-s1iw-7090-y264-q715564s2q8n ANSI-Commercial 4ivy5e64-5gp8-909g-0a9l-4r01224931q3 5zmh1t41-9rp6-275i-3m7z-0p87523020m4 ANSI-Commercial 75l0ep2m-42gi-609v-cnfh-i42e8h525125 52u5kq7u-58ot-382x-twzs-m08m9r826420 [facility] 784i73x0-7k46-7cfj-g380-t5217gsvoy12 266l96k0-8m17-0nya-b366-k4346ngbkp50 ANSI-Commercial b330fk88-u510-8725-w6hz-s773u24klo5q h004fo92-q477-6875-n4hf-g051r18fdk5j ANSI-Commercial 0gul42g3-pi66-250d-067r-g040t3i111y3 8ycr75o7-jt17-919m-153s-x782k5g173t9 [facility] w3e9bn79-5mj0-6969-g3z1-23u9045j5195 f1o3me97-9sa6-4394-f7p3-50l4927v1356 ANSI-Commercial w24l188p-57u3-4gct-5l60-vk66jyv85xn6 z10f323q-04y2-5rrp-1g77-aq38xtv87kq7 ANSI-Commercial f400f913-3wf8-879k-39hi-9270535a9196 g568i784-6vk6-010o-12xc-4050927a8034 [facility] 0721xd5p-20qr-9xjs-whnb-az5e514ic97j 4479no1n-88cm-0tee-yclb-vb5c541sa00b ANSI-Commercial vd880155-0341-1m6c-b2j7-kyj7dvl2job4 lg230761-3127-4m6u-z6o6-wea0mmz8mcv0 ANSI-Medicare Part B 63r2p747-x551-6088-71sa-3867dsn76o4a 64w0z067-n712-9275-64zb-7570bll97k2g ANSI-Commercial 2ko7z1h4-418u-072z-n272-10107u7299jz 5ud1b3x4-066s-199j-r335-79619e9909ib ANSI-Commercial 19408357-55w5-350i-756g-c92nkokj17p4 81074555-30n9-995s-389c-j45acbad53m2 ANSI-Commercial lm125m62-rw7i-41m2-1no8-4150845964al xd019u18-pj0t-32n6-1lj3-8112301669iw ANSI-Commercial 52m1w014-t3j0-90or-8378-vjp0c03m81ca 89p0k577-g3t9-75sn-8543-ctu8u95q28vd ANSI-Medicare Part B 3gpmc316-m6bb-145b-o8dz-2727e2v29s60 3eirj000-u4iq-902f-i6ye-1485b0z66u60 ANSI-Commercial 1263681j-q3x2-24mt-q9s6-63z49358697l 7559809s-r9e7-50yp-o2i2-11q81673823a ANSI-Commercial xc3ghkj3-1265-67u2-87dr-r93f439820la gb2vmox0-3026-91t6-29ln-j85t737810iy ANSI-Medicare Part B m2m91g7k-3783-9538-1eo3-9tc3cch53015 h1e33m1m-8501-8403-6ir4-9yj3hvn72537 ANSI-Medicare Part B xuc9168k-i828-4x37-69n3-yey0ugdnu169 gfv7551g-e365-3d34-18v9-tub2ohfrl872 ANSI-Commercial 56u7b089-950b-37f6-526b-k3r531d5gc00 39a1s775-917a-81k1-928e-w8d193x2sa47 ANSI-Commercial 42w83o15-8635-8561-keio-98l5l781l4o3 21y08y98-2288-4888-yofx-14m5z587c8j3 ANSI-Commercial 164lfv4h-6032-5l6m-005g-d7a436r9nt99 691flv7p-8630-8u7m-652z-p8j188t0jy47 ANSI-Medicare Part B 79j1xx21-2p85-087p-e16e-l15i9y7200cm 34l4qo15-4r71-164a-p65y-n51p0k7547wt ANSI-Commercial 155q8o6y-n23p-4ebj-628t-76em2073qwdl 530l1x0d-x82t-0vvg-365u-54ot0988zlxw ANSI-Medicare Part B b255pw53-0dw2-449b-4gf5-08g10nq2c6p8 p151mx29-4fp7-560s-1dn8-30u41dw1a7e8 ANSI-Commercial 40pt16b3-u967-011e-d1e2-289517b92229 94gt69n6-m798-737v-b7p2-641867n42582 ANSI-Commercial 9qn5p647-4n0t-8876-m3s6-381713fgn37r 0wr0a225-3u8f-6014-x1k1-897118tzw86v ANSI-Commercial 704max15-i3i3-8z6v-m38t-zov660f025y2 063qnh02-q3r0-3g9y-f40e-xvl899z068c6 ANSI-Commercial rsi1131y-337x-9923-5213-6369i1h18j49 ttl1557h-145m-4837-0240-5134c7y18n14 ANSI-Medicare Part B 52h416kj-4978-7365-1m3j-l96964858305 64r309kf-8039-8719-1t9c-y23841813616 ANSI-Commercial 7495647q-3lqb-48q7-z1a1-ujqj3941798t 1022663j-8jle-79d3-m9m1-dpyd4248485n ANSI-Medicare Part B 8b339425-07e7-0348-939d-3jb4138p16k2 6y215370-34e8-0514-539f-0rv9844m58b5 ANSI-Commercial gx48lm51-y2d6-7lg1-m69s-onh3u810c60i jx41oj64-l9n1-1et0-f08m-khi8x126p82i ANSI-Commercial j5a4007j-p467-9zd2-854j-748y2645kq5n d5p0949k-v701-1mz8-750i-292d9432re0l ANSI-Commercial h7q2524y-6e4z-6540-14pr-260r30av77v0 b5h3923b-2m8h-6689-42uo-360n22tp44m5 ANSI-Medicare Part B u68091x5-l2e0-3x8x-pr7a-ih7974zk10t2 v43133g0-y0x2-3o2g-df1d-sy7116uq69l3 ANSI-Medicare Part B 2916ph58-508b-966q-r79r-658i1w504o46 5555ht22-172l-490x-v67x-912g0b216i21 ANSI-Commercial 7p5027w7-7127-2mw8-45i2-8715471621pd 6u8383e8-2927-5yq2-90d0-3689532245ci ANSI-Commercial r287f073-fcmb-1z1i-v901-xk6925605w68 i750h003-ycgv-6t8v-t907-sb3513720a56 ANSI-Medicare Part B it2al433-q0iy-35t3-hu59-j1613227y5os ow1mi172-h8is-15i1-tl43-c3914077f0dj ANSI-Commercial n94l4f7w-222s-92cl-s86i-vp147py261p7 c40w4e2j-957m-16jr-p22g-on083th880z4 ANSI-Commercial 65c05018-0qb1-5s2v-u00f-43w779d50699 95t17929-6iv1-7s7w-z59r-10c184s25960 [employer] [id number] SP [id number] MEDICARE [id number] SP [id number] A MEDICARE [id number] SP [id number] A BCBS Federal Medigap Part B [id number] Self [id number] Medicare - [place] Medicare Primary [id number] Self [id number] MEDICARE [id number] SP [id number] A EXCELLUS BCBS FEDERAL [id number] SP [id number] [facility] (HMO) [id number] Self [id number] EXCELLUS BCBS FEDERAL [id number] SP [id number] [place] MEDICARE PART B C [id number] S [id number] BC BS [place] FEDERAL B [id number] S [id number] EXCELLUS BCBS FEDERAL [id number] SP [id number] [facility] P [id number] SELF [id number] MEDICARE [id number] SP [id number] A EXCELLUS BCBS FEDERAL [id number] SP [id number] EXCELLUS BCBS FEDERAL [id number] SP [id number] EXCELLUS BCBS FEDERAL [id number] SP [id number] [facility] (HMO) Self MEDICARE C [id number] S [id number] A BC BS [place] FEDERAL B [id number] S [id number] [employer] Health Maintenance Organization (HMO) Se lf [place] [employer] Medigap Part B Self [employer] Medigap Part B Self Federal BC/BS Commercial Self [place] DEPT OF LABOR WC UNKNOWN SP UNKNOWN PROGRESSIVE CO NO FAULT [id number] SP [id number] BC BS [place] FEDERAL [id number] SP [id number] [place] DEPT OF LABOR [id number] SP [id number] EXCELLUS BCBS P [id number] S [id number] EXCELLUS BCBS P UNAVAILABLE S UNAV AILABLE SELF PAY 2 UNAVAILABLE 1 UNAVAILA BLE DEPT OF LABOR [id number] Problems, Conditions, and Diagnoses Code Display Name Description Problem Type Effective Dates Data Source(s) 85854585 Chronic right-sided heart failure Chronic right- sided heart failure Problem 05/15/2020 12:00:00 AM EDT [facility]) [id number] Essential hypertension Essential hypertension Problem 05/02/2020 12:00:00 AM EDT [facility] ([facility] ) [id number] Chronic diastolic heart failure Chronic diastoli c heart failure Problem 12/07/2019 12:00:00 AM EDT [facility] ([facility]) Z13.220 [id number] Lipid screening Problem 12/01/2019 12:00:00 AM EDT eCW1 ([facility]) M17.32 [id number] Post-traumatic osteoarthritis of left kne e Problem 12/01/2019 12:00:00 AM EDT eCW1 ([facility]) Z13.220 [id number] Lipid screening Problem 12/01/2019 12:00:00 AM EDT eCW1 ([facility]) M17.32 [id number] Post-traumatic osteoarthritis of left kne e Problem 12/01/2019 12:00:00 AM EDT eCW1 ([facility]) R00.2 Palpitations Palpitations [id number] 10/07/2019 12:00:00 A M [facility] I50.9 Heart failure Heart failure [id number] 10/07/2019 12:00:00 AM [facility] E11.69 Type 2 diabetes mellitus with other spec ified complication Type 2 diabetes mellitus with other specified complication [id number] 12:00:00 AM [facility] I10 Essential hypertension, benign Essential hypertension, benign [id number] 10/07/2019 12:00:00 AM [facility] R07.9 Chest pain Chest pain [id number] 10/07/2019 12:00:00 AM ES T [facility] R93.1 Abnormal echocardiogram Abnormal echocardiogram [id number] 10/07/2019 12:00:00 AM EST [facility] [id number] Heart murmur Heart murmur Problem 09/09/2019 12:00:00 A M EST [facility] ([facility]) 37515164 Chest pain Chest pain Problem 09/09/2019 12:00:00 AM ES T [facility] ([facility]) [id number] Edema Edema Problem 09/09/2019 12:00:00 AM ES T [facility] ([facility]) 409129429 Dietary management surveillance Dietary manageme nt surveillance Problem 09/09/2019 12:00:00 AM EST [facility] [id number] Morbid obesity Morbid obesity Problem 09/09/2019 12:00: 00 AM EST [facility] ([facility]) 39156603 Palpitations Palpitations Problem 09/09/2019 12:00:00 A M EST [facility] ([facility]) Heart failure, unspecified Heart failure, unspecified Problem 09/09/2019 12:00:00 AM EST [facility] ([facility]) 79880325 Essential hypertension Essential hypertension Problem 09/09/2019 12:00:00 AM EST [facility] ([facility]) I10 [id number] Essential hypertension Problem 08/18/2019 12 :00:00 AM EST eCW1 ([facility]) I10 [id number] Essential hypertension Problem 08/18/2019 12 :00:00 AM EST eCW1 ([facility]) P69374 Encounter for observation fo r suspected exposure to other biological agents ruled out Encounter for observation for suspected exposure to other biological agents ruled out Diagnosis 02/08/2020 02:08:00 PM EDT [facility] Z1159 Encounter for screening for other viral diseases Encounter for screening for other viral diseases Diagnosis 02/08/2020 02:08:00 PM EDT [facility] R00.2 Palpitations Palpitations Diagnosis 10/11/2019 06:07:00 A M [facility] I50.9 Heart failure, unspecified Heart failure, unspecified Diagnosis 10/11/2019 06:07:00 AM [facility] E11.69 Type 2 diabetes mellitus with other spec ified complication Type 2 diabetes mellitus with other spec Diagnosis 10/11/2019 06:07:00 AM [facility] I10 Essential (primary) hypertension Essential (primary) h ypertension Diagnosis 10/11/2019 06:07:00 AM [facility] R07.9 Chest pain, unspecified Chest pain, unspecified Diagno sis 10/11/2019 06:07:00 AM [facility] R93.1 Abnormal findings on diagnostic imaging of heart and coronary circulation Abnormal findings on diagnostic imaging Diagnosis 10/11/2019 06:07:00 AM [facility] Surgeries/Procedures Procedure Description Date Indications Data Source(s) Endoscopy Upper GI Biopsy 05/24/2020 12:00:00 AM EDT [facility] ([facility] ) Arterial Pressure Waveform Analysis For Assessment Of Centra l Art 05/15/2020 12:00:00 AM EDT [facility] ([facility] ECHO TTHRC R-T 2D W/WOM-MODE COMPL SPEC&COLR DOP 01/05 12:00:00 AM EDT [facility] ([facility]) Arterial Pressure Waveform Analysis For Assessment Of Centra l Art 12/07/2019 12:00:00 AM EDT [facility] ([facility]) Annual wellness visit, includes a person alized prevention plan of service (pps), subsequent visit 12/01/2019 12:00:00 AM EDT eCW 1 ([facility]) Pneumococcal 0.5mL (Prevnar 13) 12/01/2019 12:00:00 AM EDT eCW1 ([facility]) Administration of pneumococcal vaccine 12/01/2019 12:0 0:00 AM EDT eCW1 ([facility]) TDAP 0.5mL (Boostrix) 12/01/2019 12:00:00 AM EDT eCW1 ([facility]) MMR 0.5mL 12/01/2019 12:00:00 AM EDT e CW1 ([facility]) IMMUNIZATION ADMIN EACH ADD 12/01/2019 12:00:00 AM EDT eCW1 ([facility]) CARDIAC CATHETERIZATION CARDIAC CATHETERIZATION Routine 10/11/2019 8:37 AM EST Abnormal echocardiogram Chest pain, unspecified type Essential hypertension, benign Type 2 diabetes mellitus with other specified complication, unspecified whether fpc insulin use Heart failure, unspecified HF chronicity, unspecified heart failure type Palpitations 10/11/2019 01:37:35 PM EST [facility]ationsH eart failure, unspecified HF chronicity, unspecified heart failure typeType 2 diabetes mellitus with other specified complication, unspecified whether fpc insulin useEssential hypertension, benignChest pain, unspecified typeAbnormal echocardiogram [facility] Palpitations Heart failure, unspecified HF chronicity , unspecified heart failure type Type 2 diabetes mellitus with other spec ified complication, unspecified whether superintendent terminal insulin use Essential hypertension, benign Chest pain, unspecified type Abnormal echocardiogram BLOOD COUNT COMPLETE AUTOMATED CBC Routine 10/11/2019 7:08 A M EST 10/11/2019 12:08:00 PM EST [facility] ECG ROUTINE ECG W/LEAST 12 LDS TRCG ONLY W/O I&R ECG 12-LEAD Routine 10/11/2019 6:25 AM EST 10/11/2019 11:25:57 AM EST [facility] MYOCRD IMAGE PET PERFUS MULTPL STUDY REST/STRESS 10/05 12:00:00 AM EST [facility] ([facility]) CV STRS TST XERS&/OR RX CONT ECG I&R ONLY 10/05/2019 1 2:00:00 AM EST [facility] ([facility]) Arterial Pressure Waveform Analysis For Assessment Of Centra l Art 09/28/2019 12:00:00 AM EST [facility] ([facility]) Monitor 48HR-21Days; Recording(Connection+Recording) 09/20/2019 12:00:00 AM EST [facility] ([facility]) [id number]; review + interpretation 09/20/2019 12:00:00 AM EST [facility] ([facility]) Arterial Pressure Waveform Analysis For Assessment Of Centra l Art 09/16/2019 12:00:00 AM EST [facility] ([facility] ECG ROUTINE ECG W/LEAST 12 LDS W/I&R 09/09/2019 12:00: 00 AM EST [facility] ([facility]) Arterial Pressure Waveform Analysis For Assessment Of Centra l Art 09/09/2019 12:00:00 AM EST [facility] ([facility]) ESTABILISHED PATIENT [facility] FACILITY CHARGE 020 12:00:00 AM EST eCW1 ([facility]) TRANS CARE MGMT 7 DAY DISCH 08/18/2019 12:00:00 AM EST eCW1 ([facility]) Office Visit, Est Pt., Level 2 FC 08/18/2019 12:00:00 AM EST eCW1 ([facility]) ELECTROCARDIOGRAM TRACING 08/18/2019 12:00:00 AM EST eCW1 ([facility]) ELECTROCARDIOGRAM REPORT 08/18/2019 12:00:00 AM EST eCW1 ([facility]) Results ID Date Data Source PAP REQUEST FOR SERVICE 06/06/2020 02:10:21 AM EDT eCW1 ([facility]) Name Value Range Interpretation Code Description Data Madelyn rce(s) Supporting Document(s) PAP REQUEST FOR SERVICE eCW1 ( [facility]) ID Date Data Source [id number] 05/24/2020 12:36:00 PM EDT [facility] ([facility], ) Name Value Range Interpretation Code Description Data Madelyn rce(s) Supporting Document(s) Surgical pathology study Laboratory test result [facility] ([facility], ) FINAL DIAGNOSIS Stomach, biopsy: Gastric mucosa with mild chronic inflammation and reactive changes. No H.pylori is identified. 05/25/20201100 CLINICAL DIAGNOSIS Reflux, abdominal pain, hiatal hernia 05/25/2020718 GROSS DIAGNOSIS Received in formalin labeled "biopsy stomach R/O gastritis" and it consists of fragments of tissue 0.2 x 0.1 x 0.1 cm. All in one. -OA 05/25/2020718 Signed JUAN MENJIVAR MD 05/25/2020 1102 ID Date Data Source [id number] 05/19/2020 12:15:00 PM EDT [facility] ([facility]) Name Value Range Interpretation Code Description Data Madelyn rce(s) Supporting Document(s) Magnesium [Mass/volume] in Serum or Plasma 1.4 mg/dL 1.8-2.4 [facility] ([facility]) Natriuretic peptide.B prohormone N-Terminal [Mass/volu me] in Serum or Plasma 99 pg/mL [facility] ([facility]) ID Date Data Source [id number] 05/19/2020 12:15:00 PM EDT [facility] ([facility]) Name Value Range Interpretation Code Description Data Madelyn rce(s) Supporting Document(s) Blood Urea Nitrogen 18 mg/dL 7-18 [facility] ([facility]) Glucose, Fasting 222 mg/dL 70-100 [facility] ([facility]) Creatinine For GFR 1.35 mg/dL 0.55-1.30 [facility] ([facility]) Glomerular Filtration Rate 41.6 [facility] ([facility]) <content>Units are mL/min/1.73 m2</content>
<content></content>
<content>Chronic Kidney Disease Staging per NKF:</content>
<content></content>
<content>Stage I & II GFR >=60 Normal to Mildly Decreased</content>
<content>Stage III GFR 30- 59 Moderately Decreased</content>
<content>Stage IV GFR 15-29 Severely Decreased</content>
<content>Stage V GFR <15 Very Little GFR Left</content>
<content>ESRD GFR <15 on ELECTRONIC DEVICE REPAIRER</content>
<content></content> Sodium Level 137 meq/L 136-145 [facility] ([facility]) Potassium Serum 4.5 meq/L 3.5-5.1 [facility] ([facility]) Carbon Dioxide Level 33 meq/L 21-32 [facility] ([facility]) Chloride Level 100 meq/L 98-107 [facility] ([facility]) Anion Gap 4 meq/L 8-16 [facility] Calcium Level 8.8 mg/dL 8.8-10.2 [facility] ([facility] Phosphorus Level 3.9 mg/dL 2.5-4.9 [facility] ([facility]) Albumin 3.2 GM/DL 3.2-5.2 [facility] ID Date Data Source [id number] 05/19/2020 12:00:00 PM EDT [facility] Name Value Range Interpretation Code Description Data Madelyn rce(s) Supporting Document(s) SARS coronavirus 2 RNA [facility] This lab was ordered by [facility] and reported by [facility]. ID Date Data Source [id number] 04/04/2020 12:00:00 AM EDT [facility] Name Value Range Interpretation Code Description Data Madelyn rce(s) Supporting Document(s) 2019-nCoV RNA XXX ROMELIA+probe-Imp [facility] This lab was ordered by [facility] and repo rted by [facility]. ID Date Data Source [id number] 03/28/2020 12:00:00 AM EDT [facility] Name Value Range Interpretation Code Description Data Madelyn rce(s) Supporting Document(s) 2019-nCoV RNA XXX ROMELIA+probe-Imp [facility] This lab was ordered by [facility] and repo rted by [facility]. ID Date Data Source [id number] 03/21/2020 12:00:00 AM EDT [facility] Name Value Range Interpretation Code Description Data Madelyn rce(s) Supporting Document(s) 2018-nCoV RNA XXX ROMELIA+probe-Imp [facility] This lab was ordered by [facility] and repo rted by [facility]. ID Date Data Source [id number] 03/14/2020 12:00:00 AM EDT [facility] Name Value Range Interpretation Code Description Data Madelyn rce(s) Supporting Document(s) 2019-nCoV RNA XXX ROMELIA+probe-Imp [facility] This lab was ordered by [employer] and repo rted by [employer] ID Date Data Source [id number] 03/07/2020 12:00:00 AM EDT [facility] Name Value Range Interpretation Code Description Data Madelyn rce(s) Supporting Document(s) 2019-nCoV RNA XXX ROMELIA+probe-Imp [facility] This lab was ordered by [employer] and repo rted by [employer] ID Date Data Source [id number] 03/05/2020 12:00:00 AM EDT [facility] Name Value Range Interpretation Code Description Data Madelyn rce(s) Supporting Document(s) 2018-nCoV RNA XXX ROMELIA+probe-Imp [facility] This lab was ordered by [employer] and repo rted by [employer] ID Date Data Source [id number] 02/24/2020 12:00:00 AM EDT [facility] Name Value Range Interpretation Code Description Data Madelyn rce(s) Supporting Document(s) 2018-nCoV RNA XXX ROMELIA+probe-Imp [facility] This lab was ordered by [employer] and repo rted by [employer] ID Date Data Source [id number] 02/15/2020 12:00:00 AM EDT [facility] Name Value Range Interpretation Code Description Data Madelyn rce(s) Supporting Document(s) 2018-nCoV RNA XXX ROMELIA+probe-Imp [facility] This lab was ordered by [employer] and repo rted by [employer] ID Date Data Source [id number] 02/08/2020 12:05:00 PM EDT [facility] Name Value Range Interpretation Code Description Data Madelyn rce(s) Supporting Document(s) SARS coronavirus 2 RNA [facility] This lab was ordered by [facility] and reported by [facility]. ID Date Data Source [id number] 02/17/2020 07:45:00 AM EDT [facility] Name Value Range Interpretation Code Description Data Madelyn rce(s) Supporting Document(s) SARS-CoV-2, ROMELIA Not Detected Not Detected [facility] Testing was performed using the rowan(R) SARS-CoV-2 test.This test was developed and its performance characteristics determinedby [employer]. This test has not been FDA cleared orapproved. This test has been authorized by FDA under an Emergency UseAuthorization (EUA). This test is only authorized for the duration oftime the declaration that circumstances exist justifying theauthorization of the emergency use of in vitro diagnostic tests fordetection of SARS-CoV-2 virus and/or diagnosis of COVID-19 infectionunder section 564(b)(1) of the Act, 21 U.S.C. 360bbb-3(b)(1), unlessthe authorization is terminated or revoked sooner.When diagnostic testing is negative, the possibility of a falsenegative result should be considered in the context of a patient'srecent exposures and the presence of clinical signs and symptomsconsistent with COVID-19. An individual without symptoms of COVID-19and who is not shedding SARS-CoV-2 virus would expect to have anegative (not detected) result in this assay. ID Date Data Source [id number] 02/01/2020 12:00:00 AM EDT [facility] Name Value Range Interpretation Code Description Data Madelyn rce(s) Supporting Document(s) 2019-nCoV RNA XXX ROMELIA+probe-Imp [facility] This lab was ordered by [employer] and repo rted by [employer] ID Date Data Source [id number] 01/25/2020 12:00:00 AM EDT [facility] Name Value Range Interpretation Code Description Data Madelyn rce(s) Supporting Document(s) 2019-nCoV RNA XXX ROMELIA+probe-Imp [facility] This lab was ordered by [employer] and repo rted by [employer] ID Date Data Source [id number] 01/20/2020 12:00:00 AM EDT [facility] Name Value Range Interpretation Code Description Data Madelyn rce(s) Supporting Document(s) 2019-nCoV RNA XXX ROMELIA+probe-Imp [facility] This lab was ordered by [employer] and repo rted by [employer] ID Date Data Source [id number] 01/16/2020 12:00:00 AM EDT [facility] Name Value Range Interpretation Code Description Data Madelyn rce(s) Supporting Document(s) 2019-nCoV RNA XXX ROMELIA+probe-Imp [facility] This lab was ordered by [employer] and repo rted by [employer] ID Date Data Source [id number] 01/10/2020 12:00:00 AM EDT [facility] Name Value Range Interpretation Code Description Data Madelyn rce(s) Supporting Document(s) 2019-nCoV RNA XXX [facility]ELIA+probe-Imp [facility] This lab was ordered by [employer] and repo rted by [employer] ID Date Data Source [id number] 12/30/2019 12:00:00 AM EDT [facility] Name Value Range Interpretation Code Description Data Madelyn rce(s) Supporting Document(s) 2019-nCoV RNA XXX [facility]ELIA+probe-Imp [facility] This lab was ordered by [employer] and repo rted by [employer] ID Date Data Source [id number] 12/01/2019 12:00:00 AM EDT eCW1 ([facility]) Name Value Range Interpretation Code Description Data Madelyn rce(s) Supporting Document(s) Microalbumin/Creatinine [Ratio] in Urine 33.4 0.0-30.0 ROBY/CREAT RATIO eCW1 ([facility]) Albumin/Creatinine [Mass Ratio] in Urine 22.4 MALB URINE SIEMENS eCW1 ([facility]) Microalbumin/Creatinine [Mass Ratio] in Urine 67.0 CREATININE, URINE eCW1 ([facility]) ID Date Data Source [id number] 12/01/2019 12:00:00 AM EDT eCW1 ([facility]) Name Value Range Interpretation Code Description Data Madelyn rce(s) Supporting Document(s) Hemoglobin A1c/Hemoglobin.total in Blood 7.9 HEMOGLOBIN A1c eCW1 ([facility]) ID Date Data Source FREE T4 & TSH PANEL 12/01/2019 12:00:00 AM EDT eCW1 ([facility]) Name Value Range Interpretation Code Description Data Madelyn rce(s) Supporting Document(s) 1.06 0.76-1.46 FREE T4 eCW1 ([facility]) 1.250 0.358-3.740 THYROID STIMULATING HORM ONE eCW1 ([facility]) ID Date Data Source CBC with Differential 12/01/2019 12:00:00 AM EDT eCW1 ([facility] Name Value Range Interpretation Code Description Data Madelyn rce(s) Supporting Document(s) 4.81 4.00-5.40 RED BLOOD COUNT eCW1 ([facility]) 11.6 4.0-10.0 WHITE BLOOD COUNT eCW1 ([facility]) 13.5 12.0-15.5 HEMOGLOBIN eCW1 ([facility]) 83.8 80.0-96.0 MEAN CORPUSCULAR VOLUME e CW1 ([facility]) 33.5 32.0-36.5 MEAN CORPUSCULAR HGB CONC eCW1 ([facility]) 28.1 27.0-33.0 MEAN CORPUSCULAR HEMOGLOB IN eCW1 ([facility]) 40.3 36.0-47.0 HEMATOCRIT eCW1 ([facility]) 14.4 11.5-14.5 RED CELL DISTRIBUTION WID TH eCW1 ([facility]) 30.9 24.0-44.0 LYMPH % eCW1 ([facility]) 319 150-450 PLATELET COUNT, AUTOMATED eCW1 ([facility]) 59.4 36.0-66.0 NEUTROPHILS % eCW1 ([facility]) 6.9 1.5-8.5 NEUTROPHILS # eCW1 ([facility]) 0.3 0.0-1.0 BASO % eCW1 ([facility]) 8.0 0.0-5.0 MONO % eCW1 ([facility]) 0.7 0.0-3.0 EOS % eCW1 ([facility]) 0.1 0.0-0.5 EOS # eCW1 ([facility]) 0.0 0.0-0.2 BASO # eCW1 ([facility]) 3.6 1.5-5.0 LYMPH # eCW1 ([facility]) 0.9 0.0-0.8 MONO # eCW1 ([facility]) ID Date Data Source [id number] 11/28/2019 08:43:58 AM EDT [facility] PCName: Saravanan LyonOB: 3Provider: Harjeet Kendrick: 11/25/2019 Assessment Left knee pain (719.46) (M25.562) PlanAssessment: Workers' Compensation injury, left knee, 04/29/05.The patient is doing well with the left knee after revision now seven years out.Examination of the left knee today is benign. The patient is able now to return to her job full duty; nominal disability is 50%. We will see her in one year for that left knee. Signatures Electronically signed by : Brina Jain, ; Nov 28 2019 8:38AM EST Electronically signed by : Chicho Kendrick M.D.; Nov 28 2019 8:43AM EST Name Value Range Interpretation Code Description Data Madelyn rce(s) Supporting Document(s) ID Date Data Source [id number] 11/28/2019 08:43:52 AM EDT [facility] PC[facility]: Saravanan LyonOB: 3Provider: [employer] Kendrick: 11/25/2019 Assessment Right knee pain (719.46) (M25.561) PlanAssessment: Primary osteoarthritis, right knee.The patient was due to have her Monovisc injection, but at this point has decided against it as her symptoms are manageable. She has known degenerative change in her right knee and needs to lose weight, but she is going to be more active in her new job. We could revisit the Monovisc in the future if we need to. She will call me if she wants to proceed with this. Signatures Electronically signed by : Brina Jain, ; Nov 28 2019 8:35AM EST Electronically signed by : Chicho Kendrick M.D.; Nov 28 2019 8:43AM EST Name Value Range Interpretation Code Description Data Madelyn rce(s) Supporting Document(s) ID Date Data Source [id number] 10/11/2019 08:43:51 AM EST [facility] Name Value Range Interpretation Code Description Data Madelyn rce(s) Supporting Document(s) &PDF [facility] BUITNp2oKhWIYnMy10/DMEbxZQOyi9TfHVieWTf8ECtnWGDmB9AzhBdoCKPWMWESIV9LKoVNIGYAYM3i FcG [file] CmDRWyXX4sCQZKOv3+CHudhAVcvWojAFBAMfGqAHY1NNytBRZFWr2W ID Date Data Source [id number] 10/11/2019 08:09:11 AM EST [facility] Name Value Range Interpretation Code Description Data Madelyn rce(s) Supporting Document(s) EKG [facility] TQRVSp5wTsDDQySlf5OvVmQyTVBxIA9zoah0N3C4xNHlG5VawABdr9iqZ7AmG5MmEOGgVFSYUI1GoVBq jb2 [file] 13f4+CUSHION WORKER+3DsprOiX/CSkvx25TrCXGsWARZ6R7ZM00oxdsQ+AwY2XD3IO90QU/+TYxx5yWuQr2u+wa3+T KOBo/FGhUTwS6EFyScdiU9h6gYSzY7BEtYv8FezMU6 YMvD1iWGmgg7YbOm5CGxPO/ODrv6xQiEy/hilD6UH+6Yt8MnP5/pT0O7o/2wgpaU3lVQFL2f+RwE3+fH ++U/u3Xvu46uB9gqUzeulkpt/ynAoz10VOpiAUixG2OIMg94s3H5SPx/nP1+2i/C0jJUb4Urw5RXajhr Nc4K244fNK9K1pTkn0M8WBoSNVAgKeFxju68xx4cMg yv3+jt/TJ0+KveXj/Z2/ythGEy9cnWUcp+sn366r2/5rn1m8AlH2w43m7c3Tv6O3Ty1e2dlhSUy2P1wo q9QYBiENtLgg+BGyWhbTyp1C60J0lLr5ZAD4vwzJnhxJ8L8y2NdSrg1/utu6208el/HAmEHJ12I7bhU+ 4Ho4Re9K0j0/dPPxyqS9AZkk/xIjDvU2x/cs31Y4Gf 7m64Xr/5X1OIDwn57RT5qbm+sz7tRRlt2j6vyBpl90ujeXx0NWuDt1Zxn8Oztcnyd4/WX78l7d71SYQn aEeuwLQX4kIBr+Ana Maria+5Q+751M2qWGpeRDspVUwhJEmjURsvNIhWC4MgK/Uq83J4wWecxXVnqndPnPYIb f7HLQBWzYk5DphIMeTm0t1fSrNc0fgczIEFO8gFelg it5x1iAGGKBAoQ24Wghgx7P0mzWvuSRrhJN1kwHz0x3J+jkZD35gp1gGIp3h1eVyrgra0HTSxvZj+C/v 6QUQ9WfVsey+b68+Lo+t+RuwxfJMvP+uZG107grUUZeWhEuXdq33Z/ZYwCsfUEFMjFH50OsdeeVdkvPh gK134728C68H8g3G8wI2a2SB5hrhyO0U13ENy66MAt [file] mobile products qwklWUqnDiXNi/msW7SM673Lqo90+W7bG1nz6zb/y+/aM/RK/9IruVSv/B51+250lH1yXVx95Mh5jy8n RZEQ/K31198ouXq6Zeu34yHYVtxvoh41qotPLfHrzpGGNA8WR9O8YWxUsdEgz0radJrtZZJJ8QTvov2G pHq0NfZh5NbzANJqjgXND43ERYk0icyoyokN2hKUeE h4AzIVi4ohujLv6dXuNNxDtArSiIPLQ4rrpS00Lpun9dr+p6AlePXZLrft5LMeHFAXMfakvunlIOteXO qoICWiah4kJ/NPLIUKL9sXk3txBpGToe5TkQOa2Y6MKELCIfxn+zre92G+i6BOgJWFPQeXpaYNtKXnV0 x69wTHwnBrTPhOweig5R5kmhcnIHojDBJqEAAwq6x7 GCKq6fL/a/T8qW3FiHz8z72WE8DJ+yq584YvaapdTjPMyQ3E29tfLquB4y2lq0dyf14Wo40It5s/e1Ek jZYyOcbsJZq01Vq2e3Krkpt2QhuuOdfFQNEFHM+DyZ8K0diG/5DfNTM+ZUQ/KM6KHVsQ2fvHW3pSwLdU /W1M289I68mpEsvtm+PIN3307Wrbn4aZF247iG8gu0 [file] cNz7irxMMC5y+NKUlHFBI+x8jLIBRIubGISPFHRHGd phdxFbCB+6mpcKV7HU2n6ZucsQgy4erPCeVsV2NXK2skqXkZnzINwZZZZF3Ze05zABY/GHPA0orG5FtJ ARdIJBMNGOsw+cGnhlQFmmblxFG/wmks3q6cXnaKxnqmKacMKrNmnkgsZ2juM0PDr2ffnLPpd57cV/cf JddIwprqmGjKYCFEO31GUscUM78kUPOKANetcxuLjq 0cRKgoooAlsr9cEPYABIhZpxfdXUvwcRdZ87hG6lI+rlaawDN4LOPmSXAE0C6UCWQmrsJMUaKduL7vR2 4kDXTO4IQflIfL6gWOtq6wtTFz2w4GuKVSJ5WdpdCxlBzpF+LgBLY+YBVcFDPkajEp0k2LiBOOPJOz9p xCBPDPJEpoDYzQFpCTrBIJgEmIlMBLEgTwzyxJsLIu EPpdTFAGMTpAECSXQBgbWEqYJBeHJraPH4ar4sPKyQUcoDNRpVS2E4yN6JGHUoGwqU311UGiYXsSlCHV VcomuRTImOVuTW37OiGS40EAmv8dFEpNS9B9GQ7BN0EjdSn9EJIitNIT7UfWdCVhItQtVGVG4HN0cKzP EBKSXmP5POZwIyKMYphzYNqGaDsOdFdhn4jBIaIIVb uSYhEz8SX9hewcyNUtrdgS1ttTf1BedGsR6R82aao0Kz603JZ/71aVTtOa41iF116g6iq7uQkrXVZmlg rF0VbqeHUWtl9tYWW9Nvs2unQ2kh/h68A+BWgHFEySOfq0ZlpChyfTZymGtXoWkt2+j3eZZBwmnOU8q2 BQ43OqZ4lKxwBtEVBAx4pCHUDGtmQBEEUCIHkwlYnz lNfPwgobeBP9IIWxFQAlL97Qaizs69qsLbzVbnAGD76jAR5WBJnXzFUpGiDuj0zUgMfl4g8FUPWjX/Mb ZUEbC9EbLwwAMccv3j3wnqUzoyQzODHFIuaZ9pQY3WgiNW2xOudWAOVxHwQXYnFidj6VNboDWemGJys2 5lobyVGg9qO37x8qJyjDs/G9IQEXuPDJXs6IIYWCSE k5vDQnIR3RIXi9DYEb0HNup6CNCcZ1DsJNYAb0pLsBQs1GzHpEnCdS+FrNNlt0VtPN1MUf+5wAicoBHg i2V/9hD+bCLM+MTN+MT9/9tH+I3eQ12j6lzQYMDZNLrRHfDOzqFLMCANFzthg7BCe4BCpYjLchkrzHWY KENd2GVC1KrtiekB5eFGoLq9REiRjdAGAoH7SBaQlM 3QGkFxZX+lyyMWPfuZ1bHEjb1uiucMUrzRgOhsQ/MiopFZMuU6NfvBP/FEgZPtekijK4/l/wV0ocby0I IVt+1PpOFbisU47d5TC695NEfyxCLQITPTHMtvUuRTicu1aDiME/An+oOYbX+veiMC0NaYDjnFm2Wbjr N4IxIJDO7sZVDystmyvQiMLBCkJ90196y9r29tlimM i0vt0R1717kd5eG2Rcy7kGHDH0d4RtfyVdM+8ljkdvQneaIG+PsUX0ITUUE02e14udp4t308wbf8phOR pi4wzxz+Jm56NQ2axJj69v5+bNqDXV+u/gPa0U59L/uDb2d/SHgtD78UX8Unlik71vFWJRSAKTNBCQnE k+N5j6PnFVqGKPAJ0CXWvSTAL5bUknZH9TfghF4zmQ W4UZzpWsTLZCkWSaaYvzNXNPvrhRSyjKIQYedo+EL1bwtFD13qJbT/doughnut maker+uoAJhT32YOiiVNGhQG2SuC [file] MDEyOTcgMDAwMDAgbiAKMDAwMDAwMTQwNiAwMDAwMC RkWAfxJJRiOABwXVN1QSQzSKKyDX6hWoEzZVYpAPZ6UZqnXJNhJPYzjcATXXSgRICcPFutAPUxQWZfSQ KeEUraRMIgPCPpGMG3IKChPUVwPX5iSrDiXTDmBTGkAJMbRmT7QrFoGfAUhLStoVgidqo9UUonC2e8YP QeIRrhQR2wqeAdFIWdVwpfWp3mwEH4WTKcRhyOIc1Wc5FqchE5jfGuOjO7Ccr5SqDmRS5C ID Date Data Source [id number] 10/11/2019 07:36:33 AM EST [facility] NT INFORMATIONPatient MRN Name Date of Age Gend*PT [id number] Saravanan Miller 1950 68 years F HOPPT Location Admission Date/Time Visit ID Attending [id number] 10/11/19606 --- Linus Coe MD([id number]) EPI ID CSN Admitting Provider [id number] Linus Coe MD([id number])ADMISSION HISTORY AND PHYSICALName: Saravanan Miller Gender: femaleDate of : 1950 Age: 68 yearsDate/Time of Admit: No admission date for patient encounter. Code Status: [facility] Provider / Referring Physician: Loraine VaughnInformant:Current HistoryChief Complaint: GARZA and CPHPI:This patient is a 68 years female with GARZA and CP and an abnormal ETTPast HistoryNo past medical history on file.No past surgical history on file.No family history on file.Social HistorySocial History Narrative Not on fileSocial HistorySocioeconomic History Marital status: Spouse name: Not on file Number of children: Not on file Years of education: Not on file Highest education level: Not on fileOccupational History Not on fileSocial Needs Financial resource strain: Not on file Food insecurity: Worry: Not on file Inability: Not on file Transportation needs: Medical: Not on file Non-medical: Not on fileTobacco Use Smoking status: Not on fileSubstance and Sexual Activity Alcohol use: Not on file Drug use: Not on file Sexual activity: Not on fileLifestyle Physical activity: Days per week: Not on file Minutes per session: Not on file Stress: Not on fileRelationships Social connections: Talks on phone: Not on file Gets together: Not on file Attends methodist service: Not on file Active member of club or organization: Not on file Attends meetings of clubs or organizations: Not on file Relationship status: Not on file Intimate partner violence: Fear of current or ex partner: Not on file Emotionally abused: Not on file Physically abused: Not on file Forced sexual activity: Not on fileOther Topics Concern Not on fileSocial History Narrative Not on fileROS: 14 systems reviewed and negative except for the following DOEMedications and AllergiesALLERGIES/SENSITIVITIES:AllergiesAllergen Reactions Nickel Reaction: SWELLING Nsaids Reaction: ABDOMINAL PAIN Comment: PATIENT STATES ABDOMINAL PAIN WELL AHISTORY OF GI ULCER Statins Reaction: MUSCLE PAINNo medications prior to admission.PhysicalBlood Pressure: Pulse:Temperature: Respirations:Admission Weight: O2 Saturation:Today's Weight:Physical Examination:GENERAL: Well developed, well hydrated. No acute distress.HEENT: NC/AT, Pupils equal and round. EOMI. No sclerae icterus. Non injected. NoPtosis. Mouth moist without lesions. No bleeding. No bruising. No throat exudateNECK: Carotids 2+ without bruits. No thyroid enlargement or tenderness. Nonodes. No JVD. No cervical adenopathy. Trachea appears midlineCARDIOVASCULAR: Regular rate. S1, S2, mild systolic murmur. No rubs or gallopsLUNGS: Clear to auscultation. No use of accessory muscles. Non labored. Ruchi/wheezes noted.BACK: No CVAT tenderness noted. Spine is midline. No rashes. No flank painABDOMEN: No masses or bruits. Positive bowel sounds. No masses or bruits. NoHSM. No ascites noted. Nontender, NondistendedPULSES: Intact DP/PT. Equal radial and brachial pulses noted.EXTREMITIES: No cyanosis, clubbing or edema. Warm with good range of motionSKIN: No rashes or lesions.NEURO: Alert and oriented x 3. Moves all extremities. No obvious sensory deficitnoted. Nerves III-XII grossly intact.DiagnosticsLabNo results found for: WBC, MCV, PLTNo results found for: NA, K, CL, CO2, BUN, CREATININE, GLUNo results found for: CREATININECrCl cannot be calculated (No successful lab value found.).No results found for: INRCardiac: No results found for: TROPONINI, BNPAssessment & PlanActive Problems: Abnormal echocardiogram Chest pain Essential hypertension, benign Type 2 diabetes mellitus with other specified complication Heart failure PalpitationsChart reviewed and patient examined. Agree with H&P attached. The procedureand risks of cardiac catheterization and PCI (including , myocardialinfarction, stroke, vascular injury, bleeding, Emergency Heart surgery, renalfailure requiring dialysis, etc) were explained to the patient and family. Allquestions were answered to everyone's satisfaction. They tell me theyunderstand and wish to proceed.Linus Coe MD, [facility] Name Value Range Interpretation Code Description Data Madelyn cuevas(s) Supporting Document(s) ID Date Data Source [id number] 10/11/2019 07:36:33 AM EST [facility] Name Value Range Interpretation Code Description Data Madelyn rce(s) Supporting Document(s) WBC 9.4 10*3/uL (4.1-11.0) [facility] [place] [facility] [place] RBC 4.99 10*6/uL (4.00-5.40) [facility] [place] [facility] HGB 14.2 g/dL (12.0-16.0) [facility] [place] [facility] HCT 41.2 % (36.0-47.0) [facility] [place] [facility] [place] [address] [place] [id number] MCV 82.6 fL (80.0-95.0) [facility] [place] [facility] MCH 28.4 pg (27.0-32.0) [facility] [place] [facility] MCHC 34.4 g/dL (32.0-36.0) [facility] [place] [facility] RDW 14.2 % (10.5-14.5) [facility] [place] [facility] PLT 232 10*3/uL (150-450) [facility] [place] [facility] MPV 8.7 fL (7.1-10.7) [facility] ID Date Data Source [id number] 10/05/2019 11:14:00 AM EST [facility] ([facility]) Name Value Range Interpretation Code Description Data Madelyn rce(s) Supporting Document(s) Natriuretic peptide.B prohormone N-Terminal [Mass/volu me] in Serum or Plasma 169 pg/mL 0-301 [facility] ([facility]) <content>The following cut-points have b een suggested for the</content>
<content>use of proBNP for the diagnostic evaluation of heart</content>
<content>failure (HF) in patients with acute dy spnea:</content>
<content>Modality Age Optimal Cut</content>
<content>(years) Point</content>
<content> ---</content>
<content>Diagnosis (rule in HF) <50 450 pg/mL</content>
<content>50 - 75 900 pg/mL</content>
<content>>75 1800 pg/mL</content>
<content> Exclusion (rule out HF) Age independent 300 pg/mL</content>
<content></content> Magnesium [Mass/volume] in Serum or Plasma 1.2 mg/dL 1.6-2.3 [facility] ([facility]) Laboratory test finding (navigational concept) Laboratory test result [facility] ([facility]) ID Date Data Source [id number] 10/05/2019 11:14:00 AM EST [facility] ([facility]) Name Value Range Interpretation Code Description Data Madelyn rce(s) Supporting Document(s) Urea nitrogen [Mass/volume] in Serum or Plasma 14 mg/dL 8-27 [facility] ([facility]) Glucose 127 mg/dL 65-99 [facility] ([facility]) eGFR If Africn Am 70 mL/min/1.73 [facility] ([facility]) Creatinine 0.98 mg/dL 0.57-1.00 [facility] ([facility]) eGFR If NonAfricn Am 60 mL/min/1.73 [facility] NT ([facility]) Potassium [Moles/volume] in Serum or Plasma 4.0 mmol/L 3.5-5.2 [facility] ([facility]) Sodium 141 mmol/L 134-144 [facility] ([facility]) Urea nitrogen/Creatinine [Mass Ratio] in Serum or Plasma 14 1 2-28 [facility] ([facility]) Carbon dioxide, total [Moles/volume] in Serum or Plasma 26 mmol/L 20 -29 [facility] ([facility]) Calcium [Mass/volume] in Serum or Plasma 9.1 mg/dL 8.7-10.3 [facility] ([facility]) Chloride [Moles/volume] in Serum or Plasma 97 mmol/L 96-106 [facility] ([facility]) Albumin [Mass/volume] in Serum or Plasma 3.7 g/dL 3.8-4.8 [facility] ([facility]) Please note reference interval change* * Phosphate [Moles/volume] in Serum or Plasma 4.0 mg/dL 3.0-4.3 [facility] ([facility]) ID Date Data Source [id number] 10/06/2019 08:06:00 AM EST [facility] Name Value Range Interpretation Code Description Data Madelyn rce(s) Supporting Document(s) Glucose 127 mg/dL 65-99 Above high normal [facility] BUN 14 mg/dL 8-27 [facility] Creatinine 0.98 mg/dL 0.57-1.00 [facility] eGFR If NonAfricn Am 60 mL/min/1.73 >59 [facility] eGFR If Africn Am 70 mL/min/1.73 >59 [facility] BUN/Creatinine Ratio 14 12-28 [facility] Sodium 141 mmol/L 134-144 [facility] Potassium 4.0 mmol/L 3.5-5.2 [facility] Chloride 97 mmol/L 96-106 [facility] Carbon Dioxide, Total 26 mmol/L 20-29 [facility] Calcium 9.1 mg/dL 8.7-10.3 [facility] Phosphorus 4.0 mg/dL 3.0-4.3 [facility] Albumin 3.7 g/dL 3.8-4.8 Below low normal [facility] Please no te reference interval change ID Date Data Source [id number] 10/07/2019 06:05:00 AM EST [facility] Name Value Range Interpretation Code Description Data Madelyn rce(s) Supporting Document(s) NT-proBNP 169 pg/mL 0-301 [facility] The following cut-points have been suggested for the use of proBNP for the diagnostic evaluation of heart failure (HF) in patients with acute dyspnea: Modality Age Optimal Cut (years) Point Diagnosis (rule in HF) <50 450 pg/mL 50 - 75 900 pg/mL > 75 1800 pg/mL Exclusion (rule out HF) Age independent 300 pg/mL ID Date Data Source [id number] 10/06/2019 08:06:00 AM EST [facility] Name Value Range Interpretation Code Description Data Madelyn rce(s) Supporting Document(s) Magnesium 1.2 mg/dL 1.6-2.3 Below low normal [facility] ID Date Data Source [id number] 08/13/2019 04:24:00 PM EST [facility] ([facility]) Name Value Range Interpretation Code Description Data Madelyn rce(s) Supporting Document(s) White Blood Count 12.7 4.0-10.0 [facility]) Red Blood Count 5.28 4.00-5.40 [facility] Hematocrit 45.0 [facility] ([facility]) Hemoglobin 14.4 [facility] ([facility]) Platelets 289 172-450 [facility] ID Date Data Source [id number] 08/13/2019 04:24:00 PM EST [facility] ([facility]) Name Value Range Interpretation Code Description Data Madelyn rce(s) Supporting Document(s) Magnesium Level 1.9 1.8-2.4 [facility]) C-Reactive Protein 1.24 [facility] ([facility]) ID Date Data Source [id number] 08/13/2019 04:24:00 PM EST [facility] ([facility]) Name Value Range Interpretation Code Description Data Madelyn rce(s) Supporting Document(s) Glucose 196 70-100 [facility] Glomerular filtration rate/1.73 sq M.pre dicted [Volume Rate/Area] in Serum or Plasma by Creatinine-based formula (MDRD) Laboratory test result [facility] ([facility]) Creatinine 0.96 0.55-1.30 [facility] ([facility]) Blood Urea Nitrogen 21 7-18 [facility] ([facility]diology [facility] Sodium 136 136-145 MEDENT ([facility] Potassium 3.6 3.5-5.1 MEDENT ([facility]) Chloride 99 98-107 MEDENT ([facility]) Phosphorus 2.6 MEDENT ([facility]) Carbon Dioxide 30 21-32 MEDENT ([facility]) Calcium 8.9 8.2-9.6 MEDENT ([facility] [place] Albumin 3.2 3.2-5.2 [facility] ID Date Data Source [id number] 08/11/2019 04:27:00 PM EST MEDENT ([facility]) Name Value Range Interpretation Code Description Data Madelyn rce(s) Supporting Document(s) Natriuretic peptide.B prohormone N-Terminal [Mass/volu me] in Serum or Plasma 485 MEDENT ([facility]) Thyroid Stimulating Hormone 1.100 ME DENT ([facility]) Troponin Laboratory test result MEDENT ([facility]) ID Date Data Source [id number] 08/11/2019 04:27:00 PM EST MEDENT ([facility]) Name Value Range Interpretation Code Description Data Madeyln rce(s) Supporting Document(s) Creatine kinase [Enzymatic activity/volume] in Serum or Plasma 232 MEDENT ([facility]) CPK-MB 2.5 MEDENT ([facility]iology [facility]) Procedure Social History Code Duration Value Status Description Data Source(s ) Smoking 06/05/2020 12:00:00 AM EDT Former Smoker completed Former Smoker eCW1 ([facility]) Smoking 06/05/2020 12:00:00 AM EDT Former Smoker completed Former Smoker eCW1 ([facility]) Smoking 06/05/2020 12:00:00 AM EDT Former Smoker completed Former Smoker eCW1 ([facility]) Smoking 06/05/2020 12:00:00 AM EDT Former Smoker completed Former Smoker eCW1 ([facility]) Smoking 06/05/2020 12:00:00 AM EDT Former Smoker completed Former Smoker eCW1 ([facility]) Smoking 06/05/2020 12:00:00 AM EDT Former Smoker completed Former Smoker eCW1 ([facility]) Smoking 06/05/2020 12:00:00 AM EDT Former Smoker completed Former Smoker eCW1 ([facility]) Smoking 06/05/2020 12:00:00 AM EDT Former Smoker completed Former Smoker eCW1 ([facility]) Smoking 06/05/2020 12:00:00 AM EDT Former Smoker completed Former Smoker eCW1 ([facility]) Smoking 05/15/2020 12:00:00 AM EDT Patient is a former smoker completed Patient is a former smoker MEDENT ([facility]) Smoking 05/15/2020 12:00:00 AM EDT Former Smoker completed Former Smoker eCW1 ([facility]) Smoking 05/15/2020 12:00:00 AM EDT Former Smoker completed Former Smoker eCW1 ([facility]) Smoking 05/15/2020 12:00:00 AM EDT Former Smoker completed Former Smoker eCW1 ([facility]) Smoking 05/15/2020 12:00:00 AM EDT Former Smoker completed Former Smoker eCW1 ([facility]) Smoking 05/15/2020 12:00:00 AM EDT Former Smoker completed Former Smoker eCW1 ([facility]) Smoking 05/15/2020 12:00:00 AM EDT Former Smoker completed Former Smoker eCW1 ([facility]) Smoking 01/17/2020 12:00:00 AM EDT Former Smoker completed Former Smoker eCW1 ([facility]) Smoking 01/17/2020 12:00:00 AM EDT Former Smoker completed Former Smoker eCW1 ([facility]) Smoking 01/17/2020 12:00:00 AM EDT Former Smoker completed Former Smoker eCW1 ([facility]) Smoking 01/17/2020 12:00:00 AM EDT Former Smoker completed Former Smoker eCW1 ([facility]) Smoking 01/17/2020 12:00:00 AM EDT Former Smoker completed Former Smoker eCW1 ([facility]) Alcohol intake 10/11/2019 12:00:00 AM EST Never completed [facility] Smoking 10/11/2019 12:00:00 AM EST Former smoker completed Former smoker [facility] Vital Signs ID Date Data Source UNK Name Value Range Interpretation Code Description Data Source(s) Body weight 107.730 kg 107.730 kg MEDENT ([facility], ) [place] body weight 115 [lb_av] 115 [lb_av] MURPHY T ([facility], ) Body mass index (BMI) [Ratio] 42.1 kg/m2 42.1 k g/m2 MEDENT (Health system) Body weight 237.50 [lb_av] 237.50 [lb_av] MEDEN T (Health system) Body height 63 [in_i] 63 [in_i] MEDENT ([facility]) 5'3" Diastolic blood pressure 72 mm[Hg] 72 mm[Hg] MEDENT (Health system) Systolic blood pressure 138 mm[Hg] 138 mm[Hg] M EDENT (Health system) Diastolic blood pressure 76 mm[Hg] 76 mm[Hg] eCW1 ([facility]) Systolic blood pressure 112 mm[Hg] 112 mm[Hg] e CW1 ([facility]) Body mass index (BMI) [Ratio] 43.71 kg/m2 43.71 kg/m2 W1 ([facility]) Body height 62 [in_i] 62 [in_i] eCW1 ([facility]) Body weight 239 [lb_av] 239 [lb_av] eCW1 ([facility] Diastolic blood pressure 64 mm[Hg] 64 mm[Hg] eCW1 ([facility]) Systolic blood pressure 132 mm[Hg] 132 mm[Hg] e CW1 ([facility]) Body temperature 98.0 [degF] 98.0 [degF] eCW1 ( [facility]) Respiratory rate 20 /min 20 /min eCW1 ([facility]) Heart rate 87 /min 87 /min eCW1 ([facility]) Body mass index (BMI) [Ratio] 44.04 kg/m2 44.04 kg/m2 W1 ([facility]) Body height [in_i] eCW1 ([facility]) Body weight 240.8 [lb_av] 240.8 [lb_av] eCW1 ([facility]) Diastolic blood pressure--sitting 67 mm[Hg] 67 mm[Hg] MEDEDGARDO ([facility]) CBP, large cuff/Ra Systolic blood pressure--sitting 118 mm[Hg] 118 mm[Hg] MEDENT ([facility]) CBP, large cuff/Ra Heart rate 81 /min 81 /min MEDENT ([facility]) Body mass index (BMI) [Ratio] 42.3 kg/m2 42.3 k g/m2 MEDENT ([facility]) Body height 63 [in_i] 63 [in_i] MEDENT ([facility]) 5'3" Body weight 239.00 [lb_av] 239.00 [lb_av] MEDEN T ([facility]) Body weight 108.410 kg 108.410 [facility] [place] body weight 115 [lb_av] 115 [lb_av] MEDEN T (Health system) Body mass index (BMI) [Ratio] 42.3 kg/m2 42.3 k g/m2 [facility] Body weight 239.00 [lb_av] 239.00 [lb_av] MEDEN T (Health system) Body height 63 [in_i] 63 [in_i] MEDENT ([facility]) 5'3" Diastolic blood pressure 83 mm[Hg] 83 mm[Hg] MEDENT (Health system) Systolic blood pressure 120 mm[Hg] 120 mm[Hg] M EDENT (Health system) Diastolic blood pressure 63 mm[Hg] 63 mm[Hg] eCW1 ([facility]) Systolic blood pressure 141 mm[Hg] 141 mm[Hg] e CW1 ([facility]) Body temperature 97.9 [degF] 97.9 [degF] eCW1 ( [facility]) Respiratory rate 20 /min 20 /min eCW1 ([facility]) Heart rate 87 /min 87 /min eCW1 ([facility]) Body mass index (BMI) [Ratio] 42.17 kg/m2 42.17 kg/m2 eCW1 ([facility]) Body height [in_i] eCW1 ([facility]) Body weight 230.6 [lb_av] 230.6 [lb_av] eCW1 ([facility]) Diastolic blood pressure--sitting 79 mm[Hg] 79 mm[Hg] MEDENT ([facility]) CBP large adult cuff, Ra Systolic blood pressure--sitting 144 mm[Hg] 144 mm[Hg] MEDENT ([facility]) CBP large adult cuff, Ra Heart rate 70 /min 70 /min MEDENT ([facility]) Body mass index (BMI) [Ratio] 39.7 kg/m2 39.7 k g/m2 MEDENT ([facility]) Body height 63 [in_i] 63 [in_i] MEDENT ([facility]) 5'3" Body weight 224.00 [lb_av] 224.00 [lb_av] MEDEN T ([facility]) Diastolic blood pressure 78 mm[Hg] 78 mm[Hg] eCW1 ([facility]) Systolic blood pressure 130 mm[Hg] 130 mm[Hg] e CW1 ([facility]) Body temperature 98.5 [degF] 98.5 [degF] eCW1 ( [facility]) Respiratory rate 20 /min 20 /min eCW1 ([facility]) Heart rate 100 /min 100 /min eCW1 ([facility]) Body mass index (BMI) [Ratio] 41.61 kg/m2 41.61 kg/m2 W1 ([facility]) Body height [in_us] eCW1 ([facility]) Body weight Measured 227.5 [lb_av] 227.5 [lb_av ] eCW1 ([facility]) Oxygen saturation in Arterial blood by Pulse oximetry 92 % 92 % [facility] Respiratory rate 16 /min 16 /min [facility] Body temperature 36.56 Genia 36.56 Genia [facility] Heart rate 76 /min 76 /min [facility] Diastolic blood pressure 68 mm[Hg] 68 mm[Hg] [facility] Systolic blood pressure 113 mm[Hg] 113 mm[Hg] [facility] Body mass index (BMI) [Ratio] 39.09 kg/m2 39.09 kg/m2 [facility] Body weight 100.1 kg 100.1 kg [facility] Body height 160 cm 160 cm [facility] Body mass index (BMI) [Ratio] 39.7 kg/m2 39.7 k g/m2 MEDENT ([facility]) Body height 63 [in_i] 63 [in_i] MEDENT ([facility]) 5'3" Body weight 224.00 [lb_av] 224.00 [lb_av] MEDEN T ([facility]) Diastolic blood pressure--sitting 85 mm[Hg] 85 mm[Hg] MEDENT ([facility]) CBP adult cuff, Ra Systolic blood pressure--sitting 134 mm[Hg] 134 mm[Hg] MEDENT ([facility]) CBP adult cuff, Ra Heart rate 88 /min 88 /min MEDENT ([facility]) Diastolic blood pressure--sitting 86 mm[Hg] 86 mm[Hg] MEDENT ([facility]) CBP large adult cuff, Ra Systolic blood pressure--sitting 150 mm[Hg] 150 mm[Hg] MEDENT ([facility]) CBP large adult cuff, Ra Heart rate 90 /min 90 /min MEDENT ([facility]) Body mass index (BMI) [Ratio] 40.6 kg/m2 40.6 k g/m2 MEDENT ([facility]) Body height 63 [in_i] 63 [in_i] MEDENT ([facility]) 5'3" Body weight 229.00 [lb_av] 229.00 [lb_av] MEDEN T ([facility]) Diastolic blood pressure--sitting 74 mm[Hg] 74 mm[Hg] MEDENT ([facility]) CBP large adult cuff, Ra Systolic blood pressure--sitting 127 mm[Hg] 127 mm[Hg] MEDENT ([facility]) CBP large adult cuff, Ra Heart rate 87 /min 87 /min MEDENT ([facility]) Body mass index (BMI) [Ratio] 40.4 kg/m2 40.4 k g/m2 MEDENT ([facility]) Body height 63 [in_i] 63 [in_i] MEDENT [facility]) 5'3" Body weight 228.00 [lb_av] 228.00 [lb_av] MEDEN T ([facility]) Diastolic blood pressure 86 mm[Hg] 86 mm[Hg] eCW1 ([facility]) Systolic blood pressure 160 mm[Hg] 160 mm[Hg] e CW1 ([facility]) Body temperature 97.6 [degF] 97.6 [degF] eCW1 ( [facility]) Respiratory rate 20 /min 20 /min eCW1 ([facility]) Heart rate 87 /min 87 /min eCW1 ([facility]) Body mass index (BMI) [Ratio] 41.95 kg/m2 41.95 kg/m2 eCW1 ([facility]) Body height [in_us] eCW1 ([facility]) Body weight Measured 229.4 [lb_av] 229.4 [lb_av ] eCW1 ([facility]) Diastolic blood pressure 82 mm[Hg] 82 mm[Hg] eCW1 ([facility]) Systolic blood pressure 142 mm[Hg] 142 mm[Hg] e CW1 ([facility]) Body temperature 98.4 [degF] 98.4 [degF] eCW1 ( [facility]) Respiratory rate 20 /min 20 /min eCW1 ([facility]) Heart rate 116 /min 116 /min eCW1 ([facility]) Body mass index (BMI) [Ratio] 40.64 kg/m2 40.64 kg/m2 eCW1 ([facility]) Body height [in_us] eCW1 ([facility]) Body weight Measured 222.2 [lb_av] 222.2 [lb_av ] eCW1 ([facility]) Patient Treatment Plan of Care Planned Activity Planned Date Details Description Data Source (s) OxyCODONE HCl ER 15 MG 08/16/2020 12:00:00 AM EST eCW1 ([facility]) Hydromorphone Hydrochloride 2 MG Oral Tablet 08/16/2020 12:00:00 AM EST eCW1 ([facility]) OxyCODONE HCl ER 15 MG 08/16/2020 12:00:00 AM EST eCW1 ([facility]) Hydromorphone Hydrochloride 2 MG Oral Tablet 08/16/2020 12:00:00 AM EST eCW1 ([facility]) OxyCODONE HCl ER 15 MG 07/12/2020 12:00:00 AM EST eCW1 ([facility]) Hydromorphone Hydrochloride 2 MG Oral Tablet 07/12/2020 12:00:00 AM EST eCW1 ([facility]) OxyCODONE HCl ER 15 MG 07/12/2020 12:00:00 AM EST eCW1 ([facility]) Hydromorphone Hydrochloride 2 MG Oral Tablet 07/12/2020 12:00:00 AM EST eCW1 ([facility]) OxyCODONE HCl ER 15 MG 07/12/2020 12:00:00 AM EST eCW1 ([facility]) Hydromorphone Hydrochloride 2 MG Oral Tablet 07/12/2020 12:00:00 AM EST eCW1 ([facility]) OxyCODONE HCl ER 15 MG 06/11/2020 12:00:00 AM EST eCW1 ([facility]) Hydromorphone Hydrochloride 2 MG Oral Tablet 06/11/2020 12:00:00 AM EST eCW1 ([facility]) OxyCODONE HCl ER 15 MG 06/11/2020 12:00:00 AM EST eCW1 ([facility]) Hydromorphone Hydrochloride 2 MG Oral Tablet 06/11/2020 12:00:00 AM EST eCW1 ([facility]) OxyCODONE HCl ER 15 MG 06/11/2020 12:00:00 AM EST eCW1 ([facility]) Hydromorphone Hydrochloride 2 MG Oral Tablet 06/11/2020 12:00:00 AM EST eCW1 ([facility]) OxyCODONE HCl ER 15 MG 06/11/2020 12:00:00 AM EST eCW1 ([facility]) Hydromorphone Hydrochloride 2 MG Oral Tablet 06/11/2020 12:00:00 AM EST eCW1 ([facility]) Nystatin [id number] UNT/ML Topical Cream 06/05/2020 12:00:00 AM EDT eCW1 ([facility]) Nystatin [id number] UNT/ML Topical Cream 06/05/2020 12:00:00 AM EDT eCW1 ([facility]) Nystatin [id number] UNT/ML Topical Cream 06/05/2020 12:00:00 AM EDT eCW1 ([facility]) Nystatin [id number] UNT/ML Topical Cream 06/05/2020 12:00:00 AM EDT eCW1 ([facility]) Nystatin [id number] UNT/ML Topical Cream 06/05/2020 12:00:00 AM EDT eCW1 ([facility]) Nystatin [id number] UNT/ML Topical Cream 06/05/2020 12:00:00 AM EDT eCW1 ([facility]) Nystatin [id number] UNT/ML Topical Cream 06/05/2020 12:00:00 AM EDT eCW1 ([facility]) Nystatin [id number] UNT/ML Topical Cream 06/05/2020 12:00:00 AM EDT eCW1 ([facility]) Nystatin [id number] UNT/ML Topical Cream 06/05/2020 12:00:00 AM EDT eCW1 ([facility]) OxyCODONE HCl ER 15 MG 05/15/2020 12:00:00 AM EDT eCW1 ([facility]) Hydromorphone Hydrochloride 2 MG Oral Tablet 05/15/2020 12:00:00 AM EDT eCW1 ([facility]) OxyCODONE HCl ER 15 MG 05/15/2020 12:00:00 AM EDT eCW1 ([facility]) Hydromorphone Hydrochloride 2 MG Oral Tablet 05/15/2020 12:00:00 AM EDT eCW1 ([facility]) OxyCODONE HCl ER 15 MG 05/15/2020 12:00:00 AM EDT eCW1 ([facility]) Hydromorphone Hydrochloride 2 MG Oral Tablet 05/15/2020 12:00:00 AM EDT eCW1 ([facility]) OxyCODONE HCl ER 15 MG 05/15/2020 12:00:00 AM EDT eCW1 ([facility]) Hydromorphone Hydrochloride 2 MG Oral Tablet 05/15/2020 12:00:00 AM EDT eCW1 ([facility]) OxyCODONE HCl ER 15 MG 05/15/2020 12:00:00 AM EDT eCW1 ([facility]) Hydromorphone Hydrochloride 2 MG Oral Tablet 05/15/2020 12:00:00 AM EDT eCW1 ([facility]) OxyCODONE HCl ER 15 MG 05/15/2020 12:00:00 AM EDT eCW1 ([facility]) Hydromorphone Hydrochloride 2 MG Oral Tablet 05/15/2020 12:00:00 AM EDT eCW1 ([facility]) Hydromorphone Hydrochloride 2 MG Oral Tablet 05/10/2020 12:00:00 AM EDT eCW1 ([facility]) OxyCODONE HCl ER 15 MG 05/10/2020 12:00:00 AM EDT eCW1 ([facility]) Nebulizer/Tubing/Mouthpiece 02/20/2020 12:00:00 AM EDT eCW1 ([facility]) Nebulizer/Tubing/Mouthpiece 02/20/2020 12:00:00 AM EDT eCW1 ([facility]) Nebulizer/Tubing/Mouthpiece 02/20/2020 12:00:00 AM EDT eCW1 ([facility]) Hydromorphone Hydrochloride 2 MG Oral Tablet 01/17/2020 12:00:00 AM EDT eCW1 ([facility]) OxyCODONE HCl ER 15 MG 01/17/2020 12:00:00 AM EDT eCW1 ([facility]) Hydromorphone Hydrochloride 2 MG Oral Tablet 01/17/2020 12:00:00 AM EDT eCW1 ([facility]) OxyCODONE HCl ER 15 MG 01/17/2020 12:00:00 AM EDT eCW1 ([facility]) Hydromorphone Hydrochloride 2 MG Oral Tablet 01/17/2020 12:00:00 AM EDT eCW1 ([facility]) OxyCODONE HCl ER 15 MG 01/17/2020 12:00:00 AM EDT eCW1 ([facility]) Hydromorphone Hydrochloride 2 MG Oral Tablet 01/17/2020 12:00:00 AM EDT eCW1 ([facility]) OxyCODONE HCl ER 15 MG 01/17/2020 12:00:00 AM EDT eCW1 ([facility]) Hydromorphone Hydrochloride 2 MG Oral Tablet 01/09/2020 12:00:00 AM EDT eCW1 ([facility]) OxyCODONE HCl ER 15 MG 01/09/2020 12:00:00 AM EDT eCW1 ([facility]) OxyCODONE HCl ER 15 MG 12/12/2019 12:00:00 AM EDT eCW1 ([facility]) Promethazine Hydrochloride 12.5 MG Oral Tablet 12/08/2019 12:00:00 AM EDT eCW1 ([facility]) Compazine 25mg 12/05/2019 12:00:00 AM EDT eCW1 ([facility]) Hydroxyzine Pamoate 25 MG Oral Capsule 12/01/2019 12:00:00 AM EDT eCW1 ([facility]) Diclofenac Sodium 0.01 MG/MG Topical Gel [Voltaren] 12/01/19 20 12:00:00 AM EDT eCW1 ([facility]) Hydromorphone Hydrochloride 2 MG Oral Tablet 11/22/2019 12:00:00 AM EDT eCW1 ([facility]) Hydromorphone Hydrochloride 2 MG Oral Tablet 11/22/2019 12:00:00 AM EDT eCW1 ([facility]) OxyCODONE HCl ER 15 MG 11/09/2019 12:00:00 AM EDT eCW1 ([facility]) OxyCODONE HCl ER 15 MG 11/09/2019 12:00:00 AM EDT eCW1 ([facility]) Albuterol Sulfate HFA 108 (90 Base) MCG/ACT 11/03/2019 12:00:00 AM EDT eCW1 ([facility]) Hydromorphone Hydrochloride 2 MG Oral Tablet 10/05/2019 12:00:00 AM EST eCW1 ([facility]) Hydromorphone Hydrochloride 2 MG Oral Tablet 10/05/2019 12:00:00 AM EST eCW1 ([facility]) OxyCODONE HCl ER 15 MG 10/05/2019 12:00:00 AM EST eCW1 ([facility]) Hydromorphone Hydrochloride 2 MG Oral Tablet 08/23/2019 12:00:00 AM EST eCW1 ([facility]) OxyCODONE HCl ER 15 MG 08/23/2019 12:00:00 AM EST eCW1 ([facility]) Hydromorphone Hydrochloride 2 MG Oral Tablet 08/23/2019 12:00:00 AM EST eCW1 ([facility]) Prednisone 5 MG Oral Tablet 08/19/2019 12:00:00 AM EST eCW1 ([facility]) Ondansetron 4 MG Oral Tablet [Zofran] 08/18/2019 12:00:00 AM EST eCW1 ([facility]) Amlodipine 5 MG Oral Tablet 08/18/2019 12:00:00 AM EST eCW1 ([facility]) PredniSONE 5 MG 08/18/2019 12:00:00 AM EST eCW1 ([facility]) 200 ACTUAT Albuterol 0.09 MG/ACTUAT Metered Dose Inhal er [Ventolin] 08/13/2019 12:00:00 AM EST eCW1 ([facility]) 200 ACTUAT Albuterol 0.09 MG/ACTUAT Metered Dose Inhal er [Ventolin] 08/13/2019 12:00:00 AM EST eCW1 ([facility]) 200 ACTUAT Albuterol 0.09 MG/ACTUAT Metered Dose Inhal er [Ventolin] 08/13/2019 12:00:00 AM EST eCW1 ([facility]) 200 ACTUAT Albuterol 0.09 MG/ACTUAT Metered Dose Inhal er [Ventolin] 08/13/2019 12:00:00 AM EST eCW1 ([facility]) doxycycline hyclate 100 MG Delayed Release Oral Tablet 08/13/2019 12:00:00 AM EST eCW1 ([facility]) 200 ACTUAT Albuterol 0.09 MG/ACTUAT Metered Dose Inhal er [Ventolin] 08/13/2019 12:00:00 AM EST eCW1 ([facility]) OxyCODONE HCl ER 15 MG 08/05/2019 12:00:00 AM EST eCW1 ([facility]) Hydromorphone Hydrochloride 2 MG Oral Tablet 07/11/2019 12:00:00 AM EST eCW1 ([facility]) OxyCODONE HCl ER 15 MG 07/11/2019 12:00:00 AM EST eCW1 ([facility]) Hydromorphone Hydrochloride 2 MG Oral Tablet 07/06/2019 12:00:00 AM EST eCW1 ([facility]) OxyCODONE HCl ER 15 MG 07/06/2019 12:00:00 AM EST eCW1 ([facility]) clopidogrel 75 MG Oral Tablet [facility]
[2020-08-29] MEDS ORDERED: methylPREDNISolone 125MG 2ML VIAL IV ONE (14:30)
[2020-08-29] MEDS ORDERED: COMBIVENT RESPIMAT 100-20MCG INHALER 4GM INH ONE (14:30)
--- NOTE | 2020-08-29 14:40 | REP ---
INDICATION: CHEST PAIN. COMPARISON: 03/02/2020. TECHNIQUE: SINGLE PORTABLE AP VIEW OF THE CHEST WAS PERFORMED. FINDINGS: Diffuse interstitial prominence is stable. No acute infiltrate is visualized. The heart mediastinum are unchanged. There is a large hiatal hernia again noted. IMPRESSION: Stable chronic findings with no definite acute pulmonary disease. <Electronically signed by Paul Rodgers > 08/29/20 1983
[2020-08-29 14:56] LABS: ABG BASE EXCESS 1.5 (-2.0-2.0); ABG HCO3 26.6 MEQ/L (22.0-26.0); ABG O2 SATURATION 95.8 % (95.0-99.0); ABG PARTIAL PRESSURE CO2 43.5 mmHg (35.0-45.0); ABG PARTIAL PRESSURE O2 76.7 mmHg (75.0-100.0); ABG STANDARD HCO3 25.8 MEQ/L (22.0-26.0); ABG TOTAL CO2 27.9 MEQ/L (23.0-31.0); ABG pH (ARTERIAL) 7.404 UNITS (7.350-7.450)
[2020-08-29 15:11] LABS: BASO % 0.2 % (0.0-1.0); EOS # 0.1 10^3/uL (0.0-0.5); EOS % 1.4 % (0.0-3.0); HEMATOCRIT 41.3 % (36.0-47.0); HEMOGLOBIN 13.2 g/dl (12.0-15.5); LYMPH # 2.6 10^3/uL (1.5-5.0); LYMPH % 29.2 % (24.0-44.0); MEAN CORPUSCULAR HEMOGLOBIN 27.2 pg (27.0-33.0); MONO # 0.7 10^3/uL (0.0-0.8); MONO % 7.9 % (0.0-5.0); NEUTROPHILS # 5.5 10^3/uL (1.5-8.5); NEUTROPHILS % 60.7 % (36.0-66.0); PLATELET COUNT, AUTOMATED 250 10^3/uL (150-450); RED BLOOD COUNT 4.86 10^6/uL (4.00-5.40)
[2020-08-29 15:23] LABS: INR 0.9; PARTIAL THROMBOPLASTIN TIME 24.9 SECONDS (24.2-38.5); PROTHROMBIN TIME 12.3 SECONDS (12.5-14.3)
[2020-08-29 15:26] LABS: D-DIMER QUANT 338.52 ng/ml (<500)
[2020-08-29 15:50] LABS: ALBUMIN 3.3 GM/DL (3.2-5.2); ALT/SGPT 22 U/L (12-78); BILIRUBIN,DIRECT < 0.1 MG/DL (0.0-0.2); BILIRUBIN,TOTAL 0.3 MG/DL (0.2-1.0); BLOOD UREA NITROGEN 13 MG/DL (7-18); CARBON DIOXIDE LEVEL 30 MEQ/L (21-32); CHLORIDE LEVEL 101 MEQ/L (98-107); CK-MB VALUE MASS 1.5 NG/ML (<3.6); CPK CREATINE PHOSPHOKINASE 79 U/L (26-192); CREATININE FOR GFR 1.09 MG/DL (0.55-1.30); FREE T4 1.06 NG/DL (0.76-1.46); GLOMERULAR FILTRATION RATE 53.3 (>45); GLUCOSE, FASTING 153 MG/DL (70-100); NT-PRO BNP 392 PG/ML (<125); POTASSIUM SERUM 4.5 MEQ/L (3.5-5.1); SODIUM LEVEL 138 MEQ/L (136-145); TOTAL PROTEIN 7.1 GM/DL (6.4-8.2); TROPONIN I < 0.02 NG/ML (< 0.10)
[2020-08-29] MEDS ORDERED: IPRATROPIUM 0.5MG/ALBUTEROL 2.5MG INH SOL UD 3ML (DUONEB) NEB ONE ×2 (16:45→18:15)
[2020-08-29 18:48] VITALS: BP 143/69
[2020-08-29] MEDS ORDERED: PRED20TA PO (19:05)
--- NOTE | 2020-08-30 08:23 | ECGEPIP ---
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
== END 2020-08-29 19:18 | disposition left against medical advice (07) ==
LOC: M ED 14:03
DX: R06.02 Shortness of breath (principal); Z53.9 Procedure and treatment not carried out, unspecified reason; R22.43 Localized swelling, mass and lump, lower limb, bilateral; J44.9 Chronic obstructive pulmonary disease, unspecified; I11.0 Hypertensive heart disease with heart failure; E11.9 Type 2 diabetes mellitus without complications; E66.9 Obesity, unspecified; G47.33 Obstructive sleep apnea (adult) (pediatric); G25.81 Restless legs syndrome; Z87.891 Personal history of nicotine dependence; Z88.6 Allergy status to analgesic agent; Z88.1 Allergy status to other antibiotic agents; Z88.8 Allergy status to other drugs, medicaments and biological substances; Z91.040 Latex allergy status; Z79.51 Long term (current) use of inhaled steroids; Z79.899 Other long term (current) drug therapy
CPT/HCPCS: 36415; 71045; 80048; 80076; 82550; 82553; 82803; 83880; 84439; 84443; 84484; 85025; 85379; 85610; 85730; 87040; 87486; 87581; 87633; 87798; 93005; 93041; 94760; 96374; 99285; J2930

== ENCOUNTER → 2020-09-14 | Outpatient (CLI) | payer OTHER, MEDICARE ==
--- NOTE | 2020-09-20 00:21 | ECWPNPC ---
PATIENT NAME: SARAVANAN DAUGHERTY : 1950 GENDER: FEMALE VISIT DATE: 09/14/2020 DISCHARGE DATE: 09/14/20 1201 VISIT LOCKED DATE TIME: PHYSICIAN: JULIANA COOLEY PHYSICIAN PAGER NO: ACTIVE RESOURCE: JULIANA COOLEY REASON FOR APPOINTMENT 1. LEFT KNEE/MED MGMNT/W/C. HISTORY OF PRESENT ILLNESS GENERAL: HERE FOR FOLLOW-UP OF A WORK RELATED INJURY. SUFFERS FROM CHRONIC LEFT KNEE PAIN. MEDICATION HAS BEEN HELPFUL WITHOUT ADVERSE REACTIONS PER PATIENT.WAS UNABLE TO TOLERATE HER ATTEMPT AT WORKING DUE TO SEVERE KNEE PAIN AND LEFT LEG SWELLING.DISCUSSED TREATMENT PLAN. - - -. FALL RISK SCREENING: SCREENING :NO FALLS REPORTED IN THE LAST YEAR PAIN SCREENING: PATIENT HAS A COMPLAINT OF ACUTE OR CHRONIC PAIN :YES LOCATION OF PAIN:LOW BACK, LEFT HIP INTENSITY OF PAIN (SCALE OF 1 TO 10):6 WHAT DOES YOUR PAIN FEEL LIKE:INTERMITTENT, SHARP, STABBING DURATION:INTERMITTENT, AWAKENS FROM SLEEP PAIN IS INCREASED BY:ACTIVITIES, PROLONGED STANDING PAIN IS DECREASED BY:USE OF PAIN MEDICATIONS NURSING NOTE: -. PAIN CENTER INTAKE QUESTIONS: DO YOU HAVE A HISTORY OF MRSA? :NO DO YOU TAKE A BLOOD THINNERS? :NO DO YOU HAVE ANY BLEEDING DISORDERS? :NO ANY NEW NUMBNESS OR WEAKNESS IN YOUR LEGS OR ARMS? :NO LEFT LEG NUMBNESS AND WEAKNESS ANY PACEMAKER,DEFIBRILLATOR, OR DORSAL COLUMN STIMULATOR? :NO DO YOU HAVE ANY RASHES OR OPEN SORES? :NO ARE YOU ALLERGIC TO IV DYE? :NO ARE YOU DIABETIC? :YES ANY NEW PROBLEMS WITH YOUR MEDICATIONS? :NO HAVE YOU RECEIVED A VACCINE IN THE PAST 30 DAYS? :NO DO YOU PLAN TO RECEIVE A VACCINE IN THE NEXT 21 DAYS? :YES WOULD LIKE THE COVID VACCINATION IF AVAILABLE. DO YOU NEED ANY PRESCRIPTION? :NO DO YOU TAKE ANY IMMUNOSUPPRESSIVE MEDICATIONS? :NO IS THERE A CHANCE YOU COULD BE ? :NO ARE YOU BREAST FEEDING? :NO CURRENT MEDICATIONS TAKING PROBIOTIC - CAPSULE 1 CAP ORALLY DAILY TAKING BENZONATATE 100 MG CAPSULE 1 CAP ORALLY Q 8 HOURS X 10 DAYS TAKING ARNICA - TINCTURE DIRECTED TOPICALLY GEL OTC BID FOR KNEE PAIN TAKING ONETOUCH VERIO - STRIP 1 STRIP IN VITRO DAILY TAKING ONETOUCH VERIO - STRIP 1 LANCET IN VITRO DAILY TAKING BENADRYL ALLERGY 25 MG TABLET 1 TABLET NEEDED ORALLY EVERY 8 HRS TAKING ALBUTEROL SULFATE HFA 108 (90 BASE) MCG/ACT AEROSOL SOLUTION 1 PUFF INHALATION EVERY 4 HOURS NEEDED TAKING PROMETHAZINE HCL 12.5 MG TABLET 1 TABLET NEEDED ORALLY DAILY TAKING NEBULIZER/TUBING/MOUTHPIECE DIRECTED _ DX: J44.1, DAILY USE TAKING TORSEMIDE 10 MG TABLET 1 TABLET ORALLY ONCE A DAY, NOTES: NOT SURE OF DOSE TAKING NYSTATIN [id number] UNIT/GM CREAM 1 APPLICATION EXTERNALLY UNDER BREAST AND GROIN TWICE A DAY TAKING AMLODIPINE BESYLATE 5 MG TABLET 1 TABLET ORALLY BID TAKING VOLTAREN 1 % GEL 1GRAM TRANSDERMAL EVERY 6 HOURS NEEDED TAKING CYMBALTA 60 MG CAPSULE DELAYED RELEASE PARTICLES 1 CAP ORALLY ONCE DAILY TAKING HYDROXYZINE PAMOATE 50 MG CAPSULE 1 CAPSULE NEEDED ORALLY DAILY PRN TAKING ADVAIR DISKUS 250-50 MCG/DOSE AEROSOL POWDER BREATH ACTIVATED 1 PUFF INHALATION DAILY TAKING VENTOLIN HFA 108 (90 BASE) MCG/ACT AEROSOL SOLUTION 2 PUFFS NEEDED INHALATION EVERY 4 HOURS NEEDED, NOTES: FREQUENCY CHANGE TAKING IPRATROPIUM-ALBUTEROL 0.5-2.5 (3) MG/3ML SOLUTION 3 ML INHALATION BID PRN, NOTES: BID PRN TAKING ZOFRAN 4 MG TABLET 1 TABLET ORALLY ONCE A DAY TAKING METFORMIN HCL 1000 MG TABLET 1 TABLET WITH MEALS ORALLY TWICE A DAY TAKING ROPINIROLE HCL 1 MG TABLET 2 TABLETS ORALLY BID TAKING AMRIX 15 MG CAPSULE EXTENDED RELEASE 24 HOUR 2 CAPSULE ORALLY ONCE DAILY TAKING HYDROXYZINE HCL 50 MG TABLET 1 TABLET NEEDED ORALLY QID TAKING HYDROMORPHONE HCL 2 MG TABLET 1 TAB ORALLY QHS, NOTES: DOSAGE CHANGE TAKING OXYCODONE HCL ER 15 MG TABLET ER 12 HOUR ABUSE-DETERRENT 1 TABLET ORALLY BEFORE BEDTIME, NOTES: FREQUENCY CHANGE TAKING LEVOTHYROXINE SODIUM 25 MCG CAPSULE 1 CAPSULE ON AN EMPTY STOMACH IN THE MORNING ORALLY ONCE A DAY NOT-TAKING RANITIDINE HCL 150 MG CAPSULE 1 CAPSULE ORALLY TWICE A DAY NOT-TAKING PREDNISONE 5 MG TABLET DELAYED RELEASE 2 TABLETS X 5D, THEN 1 TABLET 5DAYS ORALLY ONCE A DAY, NOTES: 2 WEEKS LEFT NOT-TAKING PREDNISONE 5 MG TABLET 2 TABLETS X5D, 1 TABLET X5DAYS ORALLY ONCE A DAY NOT-TAKING PREDNISONE 10 MG TABLET DIRECTED ORALLY 2 TABS BID X5 DAYS, 1 TAB BID X5 DAYS NOT-TAKING NYSTATIN [id number] UNIT/GM POWDER 1 APPLICATION TO AFFECTED AREA EXTERNALLY TWICE A DAY, NOTES: PRN NOT-TAKING BENZONATATE 100 MG CAPSULE 1 CAPSULE NEEDED ORALLY THREE TIMES A DAY NOT-TAKING DOXYCYCLINE HYCLATE 100 MG TABLET DELAYED RELEASE 1 TABLET ORALLY BID X 7 DAYS NOT-TAKING AMLODIPINE BESYLATE 5 MG TABLET 1 TABLET ORALLY ONCE A DAY MEDICATION LIST REVIEWED AND RECONCILED WITH THE PATIENT PAST MEDICAL HISTORY 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 JALLOH T2DM HYPOTHYROIDISM 10 CM RETROCARDIAC HIATAL HERNIA SJOGREN SYNDROME RESTLESS LEGS ARNEL MIGRAINES ACUTE KIDNEY FAILUTRE(DEHYDRATION) CHF ACUTE BRONCHITIS MORBID OBESITY HIATAL HERNIA ACUTE RESPIRATORY FAILURE WITH HYPOXEMIA HYPERTENSION ALLERGIES NICKEL: SWELLING - ALLERGY STATINS (FOR ALLERGY USE ONLY): INCREASED LFTS, MUSCULAR PAIN - ALLERGY NSAIDS: ABDOMINAL PAIN, GI ULCER - ALLERGY LEVAQUIN: FACIAL SWELLING - ALLERGY LYRICA: ITCHING - ALLERGY LACTOSE: DIARRHEA, ABDOMINAL PAIN - ALLERGY LATEX (FOR ALLERGY USE ONLY): RASH - ALLERGY SURGICAL HISTORY TONSILLECTOMY GANGLION CYST WITH CARPAL RELEASE, LEFT WRIST SECTION X2 APPENDECTOMY LEFT ARTHROSCOPY LEFT KNEE REPLACEMENT X2 2008, 2013 CAT[employer] SOCIAL HISTORY GENERAL: TOBACCO USE ARE YOU A:FORMER SMOKER HOW LONG HAS IT BEEN SINCE YOU LAST SMOKED?5-10 YEARS LATEX QUESTIONNAIRE LATEX ALLERGY : HAVE YOU EVER DEVELOPED ANY TYPE OF REACTION AFTER HANDLING LATEX PRODUCTS SUCH RUBBER GLOVES, CONDOMS, DIAPHRAGMS, BALLOONS, SOCKS, OR UNDERWEAR?YES SEE ALLERGIES, RASH, BURNING LATEX ALLERGY : HAVE YOU EVER DEVELOPED ANY TYPE OF REACTION DURING OR AFTER DENTAL APPOINTMENT, VAGINAL/RECTAL EXAMINATION, SURGICAL PROCEDURE, OR ANY OTHER EXPOSURE?NO LATEX RISK : HAVE YOU EVER HAD ANY DIFFICULTY BREATHING OR HIVES AFTER EATING OR HANDLING ANY FRUITS, OR VEGETABLES; SUCH KIWI, BANANAS, STONE FRUITS, OR CHESTNUTSNO LATEX RISK : DO YOU HAVE A PREVIOUS PERSONAL HISTORY OF MORE THAN NINE SURGERIES, SPINA BIFIDA, OR REPEATED CATHERIZATIONS? NO LATEX RISK : ARE YOU FREQUENTLY EXPOSED TO LATEX PRODUCTS IN YOUR OCCUPATION?NO DATE ASKED : 09/14/2020 ALCOHOL USE: NO. BMI CARE GOAL FOLLOW-UP ABOVE NORMAL BMI FOLLOW-UPLIFEYLE EDUCATION REGARDING DIET ALCOHOL SCREENING DID YOU HAVE A DRINK CONTAINING ALCOHOL IN THE PAST YEAR?NO POINTS0 INTERPRETATIONNEGATIVE RECREATIONAL DRUG USE DRUG USE?NO CAFFEINE CAFFEINE USE?YES OCC HOT CHOCOLATE SEXUAL HX HAD SEX IN THE LAST 12 MONTHS (VAGINAL, ORAL, OR ANAL)?YES WITHMEN ONLY HIV / HEP-C SCREENING HIV TEST OFFERED TO PATIENT:YES DATE OFFERED:03/26/2017 TEST ACCEPTED:NO HEP-C TEST OFFERED TO PATIENT:YES DATE OFFERED:03/26/2017 REASON:PATIENT DECLINED ALREADY TESTED TEST ACCEPTED:NO REASON:PATIENT DECLINED [id number] N[facility] LANGUAGE LANGUAGES SPOKEN:MACANESE LEARNING BARRIERS / SPECIAL NEEDS CHANGE FROM LAST VISIT?NO BARRIERS TO LEARNING?NO HEARING IMPAIRED?NO VISION IMPAIRED?YES :CORRECTIVE LENSES COGNITIVELY IMPAIRED?NO READINESS TO LEARN?YES LEARNING PREFERENCES?NO LEARNING CAPABILITIES PRESENT?YES EMOTIONAL BARRIERS?NO SPECIAL DEVICES?YES :CANE DEPUTY [employer]ER[employer] SERVICES NEEDED?NO DOMESTIC VIOLENCE DO YOU FEEL SAFE IN YOUR ENVIRONMENT?YES OCCUPATION: UNEMPLOYED. DIET: REGULAR. EXERCISE: NO REGULAR EXERCISE, NO REGULAR EXERCISE. MARITAL STATUS: . OTHERS AT HOME: SPOUSE. TODAY'S VISITNOTES PATIENT DESCRIBES PAIN :IT COMES AND GOES, THROBBING 12/01/19 FROM 0-10, WHAT LEVEL IS YOUR PAIN TODAY?6 PRECIPITATING FACTORS SITTING, GOING FROM SITTING TO STANDING POSITION ALLEVIATING FACTORS ELEVATING LEGS IMPACT ON FUNCTION YES - PFS REFERRAL NEEDED?NO CLERGY REFERRAL NEEDED?NO PUBLIC HEALTH REFERRAL NEEDED?NO WAS THE PROVIDER NOTIFIED OF ANY PERTINENT INFO?YES N/A HAS THE PATIENT BEEN EDUCATED REGARDING HIS/HER PLAN OF CARE?YES HAS THE PATIENT BEEN EDUCATED REGARDING PAIN, THE RISK FOR PAIN, THE IMPORTANCE OF EFFECTIVE PAIN MANAGEMENT, AND THE PAIN ASSESSMENT PROCESS?YES ADVANCE DIRECTIVE ADVANCE DIRECTIVE DISCUSSED WITH PATIENT:YES HEALTH CARE PROXY [facility], [facility]IZATION/MAJOR DIAGNOSTIC PROCEDURE SURGERIES COPD 08/13/2016 PNEUMONIA/RESP FAILURE 2015 COPD, ACUTE KIDNEY FAILURE(DEHYDRATION) 08/2019 REVIEW OF SYSTEMS CONSTITUTIONAL: ANY RECENT FEVER NO . CHILLS NO . WEIGHT CHANGE OF UNKNOWN REASONS NO . GASTROENTEROLOGY: NEW UNEXPLAINABLE CHANGES IN BOWEL CONTROL NO . CONSTIPATION NO . GENITOURINARY: ANY NEW CHANGE IN BLADDER CONTROL? NO . NEUROLOGY: NEW ONSET DIZZINESS OR NEUROLOGICAL CHANGES NOT MENTIONED NO . NEW NUMBNESS OR PAIN PATTERNS NOT MENTIONED AND PERTINENT TO TODAY'S VISIT NO . CARDIOLOGY: NEW CHEST PRESSURE NO . NEW CHEST PAIN NO . RESPIRATORY: UNEXPLAINABLE COUGH NO . NEW SHORTNESS OF BREATH NO . VITAL SIGNS WT 243.4 LBS, HT 62 IN, BMI 44.51 INDEX, BP 125/60 MM HG, HR 101 /MIN, RR 20 /MIN, TEMP 95.4 F, OXYGEN SAT % 91%, SAFE IN ENV? (Y/N) YES, NA INITIALS AW 1105, REVIEWED BY: BETTY STEWART MA. EXAMINATION GENERAL EXAMINATION: GENERALAWAKE,ALERT ,PLEASANT . PSYCHAFFECT NORMAL . LUNGS:LUNG KRISHNAN ARE DIMINISHED WITH WHEEZING.. HEART:S1, S2 IN A REGULAR RATE AND RHYTHM. NO SIGNIFICANT MURMURS, RUBS OR GALLOPS NOTED . ASSESSMENTS CORRECTION CURRENT USE OF OPIATE ANALGESIC - Z79.891 (PRIMARY) LEFT KNEE PAIN - M25.562 TREATMENT SUMMER NANNY CURRENT USE OF OPIATE ANALGESIC CONTINUE HYDROMORPHONE HCL TABLET, 2 MG, 1 TAB, ORALLY, QHS, NOTES: DOSAGE CHANGE CONTINUE OXYCODONE HCL ER TABLET ER 12 HOUR ABUSE-DETERRENT, 15 MG, 1 TABLET, ORALLY, BEFORE BEDTIME, NOTES: FREQUENCY CHANGE NOTES: ISTOP REGISTRY REVIEWED AND DEMONSTRATES COMPLLIANCE. BRINGS IN MEDICATIONS WHICH IS APPROPRIATE FOR WHAT WAS DISPENSED. RECENT URINE TOXICOLOGY REVIEWED. NO UNAUTHORIZED MEDICATIONS. NO ILLICIT SUBSTANCES AND PRESCRIBED MEDICATIONS WERE PRESENT. URINE TOX TODAY , RISKS OF NARCOTIC/OPIOD MEDICATIONS INCLUDES BUT IS NOT LIMITED TO RISK OF DEPENDANCE/DEVELOPMENT OF ADDICTION, MOOD DISTURBANCE AND DEPRESSION, OSTEOPOROSIS, HORMONAL AND LABIDAL CHANGES, RESPIRATORY DEPRESSION AND . PATIENT IS ADVISED NOT TO DRIVE OR DRINK ALCOHOL WHILE ON THESE MEDICATIONS. PROCEDURES PN WORKMANS' COMP OPINION IN YOUR OPINION, WAS THE INCIDENT THAT THE PATIENT DESCRIBED THE COMPETENT MEDICAL CAUSE OF THIS INJURY/ILLNESS? YES ARE THE PATIENT'S COMPLAINTS CONSISTENT WITH HIS/HER HISTORY OF THE INJURY/ILLNESS? YES IS THE PATIENT'S HISTORY OF THE INJURY/ILLNESS CONSISTENT WITH YOUR OBJECTIVE FINDING? YES WHAT IS THE PERCENTAGE OF TEMPORARY IMPAIRMENT? MODERATE TO MARKED = 66.7% IS THE PATIENT WORKING? NO DOCTOR ON SITE: HAYDEN JENSEN MD DISPOSITION & COMMUNICATION FOLLOW UP 3 MONTHS (REASON: WORKMEN'S COMP LEFT KNEE/MED MANAGEMENT/REVIEW U TOX) ELECTRONICALLY SIGNED BY DEIDRE MERCEDES ON 09/19/2020 AT 08:00 PM EST DISCLAIMER : THIS IS A VISIT SUMMARY EXTRACTED FROM THE [facility] CHART. IT IS NOT A COPY OF THE [facility] PROGRESS NOTE. MTDD
== END ==
LOC: M PAIN 10:45
PROVIDERS: ATTEND Nurse Practitioner Family
DX: M25.562 Pain in left knee (principal); G89.29 Other chronic pain; E11.9 Type 2 diabetes mellitus without complications; J44.9 Chronic obstructive pulmonary disease, unspecified; E03.9 Hypothyroidism, unspecified; G25.81 Restless legs syndrome; G47.30 Sleep apnea, unspecified; G43.909 Migraine, unspecified, not intractable, without status migrainosus; Z96.652 Presence of left artificial knee joint; Z87.891 Personal history of nicotine dependence; Z88.6 Allergy status to analgesic agent; Z88.8 Allergy status to other drugs, medicaments and biological substances; Z91.011 Allergy to milk products; Z91.040 Latex allergy status; E66.01 Morbid (severe) obesity due to excess calories; Z68.41 Body mass index [BMI] 40.0-44.9, adult; Z79.84 Long term (current) use of oral hypoglycemic drugs; Z79.891 Long term (current) use of opiate analgesic; Z79.899 Other long term (current) drug therapy

== ENCOUNTER → 2020-10-06 | Outpatient (CLI) | payer MEDICARE ==
[2020-10-06 10:03] LABS: BASO # 0.1 10^3/uL (0.0-0.2); BASO % 0.6 % (0.0-1.0); EOS # 0.2 10^3/uL (0.0-0.5); EOS % 1.8 % (0.0-3.0); HEMATOCRIT 37.1 % (36.0-47.0); HEMOGLOBIN 12.2 g/dl (12.0-15.5); LYMPH # 2.4 10^3/uL (1.5-5.0); LYMPH % 27.4 % (24.0-44.0); MEAN CORPUSCULAR HEMOGLOBIN 27.3 pg (27.0-33.0); MEAN CORPUSCULAR HGB CONC 32.9 g/dl (32.0-36.5); MONO # 0.9 10^3/uL (0.0-0.8); MONO % 10.6 % (2.0-8.0); NEUTROPHILS # 5.2 10^3/uL (1.5-8.5); PLATELET COUNT, AUTOMATED 261 10^3/uL (150-450); RED BLOOD COUNT 4.47 10^6/uL (4.00-5.40); WHITE BLOOD COUNT 8.7 10^3/uL (4.0-10.0)
[2020-10-06 13:08] LABS: ALBUMIN 3.1 GM/DL (3.2-5.2); BILIRUBIN,TOTAL 0.5 MG/DL (0.2-1.0); CALCIUM LEVEL 8.2 MG/DL (8.8-10.2); CHOLESTEROL RISK RATIO 6.1 (<5); CREATININE FOR GFR 1.37 MG/DL (0.55-1.30); FREE T4 1.26 NG/DL (0.76-1.46); GLOMERULAR FILTRATION RATE 40.9 (>45); POTASSIUM SERUM 4.4 MEQ/L (3.5-5.1); THYROID STIMULATING HORMONE 2.64 uIU/ML (0.358-3.740); TOTAL PROTEIN 6.6 GM/DL (6.4-8.2)
== END ==
LOC: M LAB 09:18
PROVIDERS: ATTEND Physician Assistant Medical
DX: I50.31 Acute diastolic (congestive) heart failure (principal); E03.9 Hypothyroidism, unspecified; G25.81 Restless legs syndrome

== ENCOUNTER → 2020-10-18 | Outpatient (CLI) | payer BC, MEDICARE ==
[~2020-10-18] MED LIST changes: +PROHANCE 279.3MG/ML 15ML VIAL As Ordered ONE
--- NOTE | 2020-10-18 14:12 | REP ---
INDICATION: MASS OF PELVIS, LT LEG SWELLING. Syncope. COMPARISON: Comparison CT study of the brain March 09, 2016.. TECHNIQUE: Axial and sagittal imaging planes are utilized for T1 and T2-weighted scans. Sequences include spin-echo, fast spin echo, FLAIR, and diffusion weighted sequences. 10 mL of intravenous ProHance is administered and post gadolinium enhanced T1 weighted scans are acquired in all 3 planes. FINDINGS: There is mild motion artifact on the T1 weighted sequences. Craniocervical junction upper cervical cord are normal in appearance. Medulla, alta, midbrain and cerebellar hemispheres appear intact. Rodgers-white differentiation pattern is normal above the tentorium as well. Lateral, 3rd, and 4th ventricles are normal in size and position. No extra-axial fluid collection is seen. Diffusion weighted scans show no evidence of restricted diffusion to suggest acute ischemia. There is no evidence of intracranial hemorrhage. No mass, infarct, or midline shift is seen. There are minimal small vessel changes in the periventricular white matter. IMPRESSION: No acute intracranial abnormality. <Electronically signed by Pablito Horvath > 10/18/20 [id number]
--- NOTE | 2020-10-18 14:14 | REP ---
INDICATION: MASS OF PELVIS, LT LEG SWELLING. COMPARISON: None. TECHNIQUE: 3-D [id number] MR angiography of the brain is acquired in the usual fashion and maximal intensity projection images were generated in rotational format about the vertical and horizontal axes. In addition, source axial T1-weighted images are viewed in cine mode. FINDINGS: The distal vertebral arteries are patent and co-dominant. Basilar artery is a little tortuous but widely patent. The posterior cerebral and superior cerebellar vessels are normal and symmetric. The left posterior cerebral takes a persistent origin which is a common normal variant. The distal internal carotid arteries are unremarkable. Anterior and middle cerebral arteries appear intact. There is no visible cross aneurysm or arteriovenous malformation. IMPRESSION: Unremarkable MR angiography the brain. <Electronically signed by Pablito Horvath > 10/18/20 [id number]
== END ==
LOC: M RAD 12:38
PROVIDERS: ATTEND Physician Assistant Medical
DX: R55 Syncope and collapse (principal)
CPT/HCPCS: 70544; 70553; A9576

== ENCOUNTER → 2020-11-05 | Outpatient (CLI) | payer BC, MEDICARE ==
[~2020-11-05] MED LIST changes: -PROHANCE 279.3MG/ML 15ML VIAL As Ordered ONE
--- NOTE | 2020-11-05 20:00 | REP ---
INDICATION: SYNCOPE AND COLLAPSE COMPARISON: None. TECHNIQUE: Real-time ultrasound evaluation and duplex Doppler interrogation of the extracranial carotid vasculature is performed. FINDINGS: Antegrade flow is observed in both vertebral arteries. Right carotid: The right common carotid artery shows diffuse intimal thickening but is otherwise unremarkable. There mild mixed plaquing in the right carotid bulb and proximal ICA on two-dimensional scanning. Color flow and spectral Doppler interrogation are unremarkable on the right. Velocity chart right carotid: Right CCA PSV: 144 cm/S Right ICA PSV: 79 cm/S Right ICA EDV: 17 cm/S Right ECA PSV: 69 cm/S Right ICA/CCA ratio: 0.6 Left carotid: The left common carotid artery shows diffuse intimal thickening but is otherwise unremarkable. There is mild mixed plaquing in the left carotid bulb and proximal ICA on two-dimensional scanning. Color flow and spectral Doppler interrogation are unremarkable on the left. Velocity chart left carotid: Left CCA PSV: 108 cm/S Left ICA PSV: 107 cm/S Left ICA EDV: 32 cm/S Left ECA PSV: 72 cm/S Left ICA/CCA ratio: 0.99 IMPRESSION: Less than 50% category narrowing in the right internal carotid artery by Doppler velocity criteria. Less than 50% category narrowing in the left ICA by Doppler velocity criteria. <Electronically signed by Pablito Horvath > 11/05/201955
== END ==
LOC: M RAD 13:27
PROVIDERS: ATTEND Physician Assistant Medical
DX: R55 Syncope and collapse (principal)

== ENCOUNTER → 2020-11-13 | Outpatient (REF) | payer BC, MEDICARE | LOC: M SFHCPLAZ 09:22 | PROVIDERS: ATTEND Physician Assistant Medical | DX: E61.1 Iron deficiency (principal) ==

== ENCOUNTER → 2020-11-22 | Outpatient (CLI) | payer SELFPAY | LOC: M LABSMTC 09:30 | PROVIDERS: ATTEND Pediatrics | DX: Z11.52 Encounter for screening for COVID-19 (principal) ==

== ENCOUNTER → 2020-12-12 | Outpatient (CLI) | payer BC ==
--- NOTE | 2020-12-14 06:21 | ECWPNPC ---
PATIENT NAME: SARAVANAN DAUGHERTY : 1950 GENDER: FEMALE VISIT DATE: 12/12/2020 DISCHARGE DATE: 12/12/20 1202 VISIT LOCKED DATE TIME: PHYSICIAN: JULIANA COOLEY PHYSICIAN PAGER NO: ACTIVE RESOURCE: JULIANA COOLEY REASON FOR APPOINTMENT 1. MEDICATION MANAGEMENT HISTORY OF PRESENT ILLNESS DEPRESSION SCREENING: PHQ-9 LITTLE INTEREST OR PLEASURE IN DOING THINGSNEARLY EVERY DAY FEELING DOWN, DEPRESSED, OR HOPELESSNEARLY EVERY DAY TROUBLE FALLING OR STAYING ASLEEP, OR SLEEPING TOO MUCHNEARLY EVERY DAY FEELING TIRED OR HAVING LITTLE ENERGYNEARLY EVERY DAY POOR APPETITE OR OVEREATING NEARLY EVERY DAY FEELING BAD ABOUT YOURSELF-OR THAT YOU ARE A FAILURE OR HAVE LET YOURSELF OR YOUR FAMILY DOWN NEARLY EVERY DAY TROUBLE CONCENTRATING ON THINGS, SUCH READING THE NEWSPAPER OR WATCHING TELEVISION NEARLY EVERY DAY MOVING OR SPEAKING SO SLOWLY THAT OTHER PEOPLE COULD HAVE NOTICED. OR THE OPPOSITE- BEING SO FIDGETY OR RESTLESS THAT YOU HAVE BEEN MOVING AROUND A LOT MORE THAN USUALNEARLY EVERY DAY THOUGHTS THAT YOU WOULD BE BETTER OFF , OR OF HURTING YOURSELF IN SOME WAY?MORE THAN HALF THE DAYS(CONSIDER SUICIDE ASSESSMENT RISK) TOTAL SCORE:26 INTERPRETATIONSEVERE DEPRESSION PHQ-2 (2015 EDITION) LITTLE INTEREST OR PLEASURE IN DOING THINGS?NEARLY EVERY DAY FEELING DOWN, DEPRESSED, OR HOPELESS?NEARLY EVERY DAY TOTAL SCORE6 GENERAL: HERE FOR FOLLOW-UP AND MEDICATION MANAGEMENT FOR WORK RELATED INJURY. SUFFERS FROM PERSISTENT LEFT KNEE PAIN. ACCOMPANIED IN THE EXAM ROOM WITH SIGNIFICANT OTHER. PATIENT IS VERY DEPRESSED TODAY. SHE IS WEEPY THROUGHOUT THE VISIT. STATES HER PAIN IS OUT OF CONTROL IN HER LEFT KNEE. STATES THAT CURRENT MEDICINES ARE HELPFUL FOR A WHILE BUT IN THE MID DAY HER PAIN IS SEVERE. REVIEWED MEDICATION. DISCUSSED TREATMENT PLAN. PATIENT DENIES SUICIDAL IDEATIONS. PATIENT IS AGREEABLE TO SEEING OUTPATIENT MENTAL HEALTH IN THEIR WALK IN CLINIC. -. FALL RISK SCREENING: SCREENING : NO FALLS REPORTED IN THE LAST YEAR, ONE FALL THIS YEAR NO INJURIES. PAIN SCREENING: PATIENT HAS A COMPLAINT OF ACUTE OR CHRONIC PAIN :YES LOCATION OF PAIN:KNEES LEFT KNEE INTENSITY OF PAIN (SCALE OF 1 TO 10):3 WHAT DOES YOUR PAIN FEEL LIKE:THROBBING DURATION:CONTINOUS, CONSTANT, ALL DAY PAIN IS INCREASED BY:ACTIVITIES NURSING NOTE: -. PAIN CENTER INTAKE QUESTIONS: DO YOU HAVE A HISTORY OF MRSA? :NO DO YOU TAKE A BLOOD THINNERS? :NO DO YOU HAVE ANY BLEEDING DISORDERS? :NO ANY NEW NUMBNESS OR WEAKNESS IN YOUR LEGS OR ARMS? :NO LEFT LEG NUMBNESS AND WEAKNESS ANY PACEMAKER,DEFIBRILLATOR, OR DORSAL COLUMN STIMULATOR? :NO DO YOU HAVE ANY RASHES OR OPEN SORES? :NO ARE YOU ALLERGIC TO IV DYE? :NO ARE YOU DIABETIC? :YES ANY NEW PROBLEMS WITH YOUR MEDICATIONS? :NO HAVE YOU RECEIVED A VACCINE IN THE PAST 30 DAYS? :YES 2ND COVID 12/05/2020 DO YOU PLAN TO RECEIVE A VACCINE IN THE NEXT 21 DAYS? :NO DO YOU NEED ANY PRESCRIPTION? :YES OXYCODONE 15MG, HYDROMORPHONE 2MG DO YOU TAKE ANY IMMUNOSUPPRESSIVE MEDICATIONS? :NO IS THERE A CHANCE YOU COULD BE ? :NO ARE YOU BREAST FEEDING? :NO CURRENT MEDICATIONS TAKING VOLTAREN 1 % GEL 1GRAM TRANSDERMAL EVERY 6 HOURS NEEDED TAKING METFORMIN HCL 1000 MG TABLET 1 TABLET WITH MEALS ORALLY TWICE A DAY TAKING ZOFRAN 4 MG TABLET 1 TABLET ORALLY ONCE A DAY TAKING COMPAZINE 25MG 1 TAB ORALLY Q 8HRS. FOR NAUSEA NEEDED TAKING PROBIOTIC - CAPSULE 1 CAP ORALLY DAILY TAKING ONETOUCH VERIO - STRIP 1 STRIP IN VITRO DAILY TAKING ONETOUCH VERIO - STRIP 1 LANCET IN VITRO DAILY TAKING BENADRYL ALLERGY 25 MG TABLET 2 TABLET NEEDED ORALLY EVERY 8 HRS TAKING ALBUTEROL SULFATE HFA 108 (90 BASE) MCG/ACT AEROSOL SOLUTION 1 PUFF INHALATION EVERY 4 HOURS NEEDED TAKING NEBULIZER/TUBING/MOUTHPIECE DIRECTED _ DX: J44.1, DAILY USE TAKING NYSTATIN 794436 UNIT/GM CREAM 1 APPLICATION EXTERNALLY UNDER BREAST AND GROIN TWICE A DAY TAKING MAGNESIUM 250 MG TABLET 1 TABLET WITH A MEAL ORALLY ONCE A DAY TAKING ARNICARE - GEL DIRECTED EXTERNALLY ALL OVER THE BODY TAKING AMRIX 15 MG CAPSULE EXTENDED RELEASE 24 HOUR 2 CAPSULE ORALLY ONCE DAILY TAKING AMLODIPINE BESYLATE 5 MG TABLET 1 TABLET ORALLY DAILY TAKING BISOPROLOL FUMARATE 5 MG TABLET 1 TABLET ORALLY ONCE A DAY TAKING LEXAPRO 5 MG TABLET 1 TABLET ORALLY ONCE A DAY TAKING CANDESARTAN CILEXETIL 4 MG TABLET 1/2 TABLET ORALLY ONCE A DAY TAKING EPLERENONE 25 MG TABLET 1 TABLET ORALLY ONCE A DAY TAKING POTASSIUM 99 MG TABLET 1 TABLET ORALLY ONCE A DAY; 2 TABS. C 2 TABS. OF HER TORSEMIDE TAKING TORSEMIDE 20 MG TABLET 1 TAB ORALLY DAILY TAKING EZETIMIBE 10 MG TABLET 1 TABLET ORALLY ONCE A DAY TAKING BREO ELLIPTA 200-25 MCG/INH AEROSOL POWDER BREATH ACTIVATED 1 PUFF INHALATION ONCE A DAY TAKING PANTOPRAZOLE SODIUM 40 MG TABLET DELAYED RELEASE 1 TABLET ORALLY ONCE A DAY TAKING TRAZODONE HCL 50 MG TABLET 1 TABLET AT BEDTIME NEEDED ORALLY ONCE A DAY TAKING HYDROXYZINE HCL 50 MG TABLET 2 TABLET NEEDED ORALLY 2 IN AM AND 2 IN PM TAKING IPRATROPIUM-ALBUTEROL 0.5-2.5 (3) MG/3ML SOLUTION 3 ML INHALATION BID PRN, NOTES: BID PRN TAKING VENTOLIN HFA 108 (90 BASE) MCG/ACT AEROSOL SOLUTION 2 PUFFS NEEDED INHALATION EVERY 4 HOURS NEEDED, NOTES: FREQUENCY CHANGE TAKING ROPINIROLE HCL 1 MG TABLET 2 TABLETS ORALLY BID TAKING FERROUS GLUCONATE 324 (38 FE) MG TABLET 2 TABLET WITH WATER OR JUICE BETWEEN MEALS ORALLY EVERY OTHER DAY TAKING TESSALON PERLES 100 MG CAPSULE 1 CAPSULE NEEDED ORALLY THREE TIMES A DAY TAKING HYDROMORPHONE HCL 2 MG TABLET 1 TAB ORALLY QHS MDD1, NOTES: DOSAGE CHANGE TAKING LEVOTHYROXINE SODIUM 25 MCG CAPSULE 1 CAPSULE ON AN EMPTY STOMACH IN THE MORNING ORALLY ONCE A DAY TAKING OXYCODONE HCL ER 15 MG TABLET ER 12 HOUR ABUSE-DETERRENT 1 TABLET ORALLY EVERY 12 HRS NOT-TAKING TORSEMIDE 20 MG TABLET DIRECTED ORALLY BID NOT-TAKING OXYCODONE HCL ER 15 MG TABLET ER 12 HOUR ABUSE-DETERRENT 1 TABLET ORALLY BEFORE BEDTIME MDD1, NOTES: FREQUENCY CHANGE MEDICATION LIST REVIEWED AND RECONCILED WITH THE PATIENT PAST MEDICAL HISTORY 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 JALLOH T2DM HYPOTHYROIDISM 10 CM RETROCARDIAC HIATAL HERNIA SJOGREN SYNDROME RESTLESS LEGS ARNEL MIGRAINES ACUTE KIDNEY FAILUTRE(DEHYDRATION) CHF ACUTE BRONCHITIS MORBID OBESITY HIATAL HERNIA ACUTE RESPIRATORY FAILURE WITH HYPOXEMIA HYPERTENSION ALLERGIES NICKEL: SWELLING - ALLERGY STATINS (FOR ALLERGY USE ONLY): INCREASED LFTS, MUSCULAR PAIN - ALLERGY NSAIDS: ABDOMINAL PAIN, GI ULCER - ALLERGY LEVAQUIN: FACIAL SWELLING - ALLERGY LYRICA: ITCHING - ALLERGY LACTOSE: DIARRHEA, ABDOMINAL PAIN - ALLERGY LATEX (FOR ALLERGY USE ONLY): RASH - ALLERGY LACTULOSE: RASH - ALLERGY SOCIAL HISTORY GENERAL: TOBACCO USE ARE YOU A:FORMER SMOKER HOW LONG HAS IT BEEN SINCE YOU LAST SMOKED?5-10 YEARS LATEX QUESTIONNAIRE LATEX ALLERGY : HAVE YOU EVER DEVELOPED ANY TYPE OF REACTION AFTER HANDLING LATEX PRODUCTS SUCH RUBBER GLOVES, CONDOMS, DIAPHRAGMS, BALLOONS, SOCKS, OR UNDERWEAR?YES SEE ALLERGIES, RASH, BURNING LATEX ALLERGY : HAVE YOU EVER DEVELOPED ANY TYPE OF REACTION DURING OR AFTER DENTAL APPOINTMENT, VAGINAL/RECTAL EXAMINATION, SURGICAL PROCEDURE, OR ANY OTHER EXPOSURE?NO LATEX RISK : HAVE YOU EVER HAD ANY DIFFICULTY BREATHING OR HIVES AFTER EATING OR HANDLING ANY FRUITS, OR VEGETABLES; SUCH KIWI, BANANAS, STONE FRUITS, OR CHESTNUTSNO LATEX RISK : DO YOU HAVE A PREVIOUS PERSONAL HISTORY OF MORE THAN NINE SURGERIES, SPINA BIFIDA, OR REPEATED CATHERIZATIONS? NO LATEX RISK : ARE YOU FREQUENTLY EXPOSED TO LATEX PRODUCTS IN YOUR OCCUPATION?NO DATE ASKED : 12/12/2020 ALCOHOL USE: NO. BMI CARE GOAL FOLLOW-UP ABOVE NORMAL BMI FOLLOW-[email or web address]]YLE EDUCATION REGARDING DIET ALCOHOL SCREENING DID YOU HAVE A DRINK CONTAINING ALCOHOL IN THE PAST YEAR?NO POINTS0 INTERPRETATIONNEGATIVE RECREATIONAL DRUG USE DRUG USE?NO CAFFEINE CAFFEINE USE?YES OCC HOT CHOCOLATE SEXUAL HX HAD SEX IN THE LAST 12 MONTHS (VAGINAL, ORAL, OR ANAL)?YES WITHMEN ONLY HIV / HEP-C SCREENING HIV TEST OFFERED TO PATIENT:YES DATE OFFERED:03/26/2017 TEST ACCEPTED:NO HEP-C TEST OFFERED TO PATIENT:YES DATE OFFERED:03/26/2017 REASON:PATIENT DECLINED ALREADY TESTED TEST ACCEPTED:NO REASON:PATIENT DECLINED BAPTISM [id number] NONE LANGUAGE LANGUAGES SPOKEN:TRINIDADIAN LEARNING BARRIERS / SPECIAL NEEDS CHANGE FROM LAST VISIT?NO BARRIERS TO LEARNING?NO HEARING IMPAIRED?NO VISION IMPAIRED?YES :CORRECTIVE LENSES READING COGNITIVELY IMPAIRED?NO READINESS TO LEARN?YES LEARNING PREFERENCES?NO LEARNING CAPABILITIES PRESENT?YES EMOTIONAL BARRIERS?NO SPECIAL DEVICES?YES :CANE NEEDED ORTHOPAEDIC NURSE NEEDED?NO DOMESTIC VIOLENCE DO YOU FEEL SAFE IN YOUR ENVIRONMENT?YES OCCUPATION: UNEMPLOYED. DIET: REGULAR. EXERCISE: NO REGULAR EXERCISE, NO REGULAR EXERCISE. MARITAL STATUS: . OTHERS AT HOME: SPOUSE. TODAY'S VISITNOTES PATIENT DESCRIBES PAIN :IT COMES AND GOES, THROBBING 12/01/19 FROM 0-10, WHAT LEVEL IS YOUR PAIN TODAY?6 PRECIPITATING FACTORS SITTING, GOING FROM SITTING TO STANDING POSITION ALLEVIATING FACTORS ELEVATING LEGS IMPACT ON FUNCTION YES - PFS REFERRAL NEEDED?NO CLERGY REFERRAL NEEDED?NO PUBLIC HEALTH REFERRAL NEEDED?NO WAS THE PROVIDER NOTIFIED OF ANY PERTINENT INFO?YES N/A HAS THE PATIENT BEEN EDUCATED REGARDING HIS/HER PLAN OF CARE?YES HAS THE PATIENT BEEN EDUCATED REGARDING PAIN, THE RISK FOR PAIN, THE IMPORTANCE OF EFFECTIVE PAIN MANAGEMENT, AND THE PAIN ASSESSMENT PROCESS?YES ADVANCE DIRECTIVE ADVANCE DIRECTIVE DISCUSSED WITH PATIENT:YES HEALTH CARE PROXY ROMEO WHITE REVIEW OF SYSTEMS CONSTITUTIONAL: ANY RECENT FEVER NO . CHILLS NO . WEIGHT CHANGE OF UNKNOWN REASONS NO . GASTROENTEROLOGY: NEW UNEXPLAINABLE CHANGES IN BOWEL CONTROL NO . CONSTIPATION NO . GENITOURINARY: ANY NEW CHANGE IN BLADDER CONTROL? NO . NEUROLOGY: NEW ONSET DIZZINESS OR NEUROLOGICAL CHANGES NOT MENTIONED NO . NEW NUMBNESS OR PAIN PATTERNS NOT MENTIONED AND PERTINENT TO TODAY'S VISIT NO . CARDIOLOGY: NEW CHEST PRESSURE NO . PATIENT DENIES NO . RESPIRATORY: UNEXPLAINABLE COUGH NO . NEW SHORTNESS OF BREATH NO . VITAL SIGNS WT 232.4 LBS, HT 62 IN, BMI 42.50 INDEX, BP 146/69 MM HG, HR 78 /MIN, RR 18 /MIN, TEMP 96.4 F, OXYGEN SAT % 96%, SAFE IN ENV? (Y/N) YES, NA INITIALS SD 11:14T.RADHA PUTNAM. EXAMINATION GENERAL EXAMINATION: GENERALAWAKE,ALERT. PSYCHWEEPY/DEPRESSED. LUNGS:LUNG KRISHNAN ARE CLEAR TO AUSCULTATION BILATERALLY. GOOD MOVEMENT OF AIR . HEART:S1, S2 IN A REGULAR RATE AND RHYTHM. NO SIGNIFICANT MURMURS, RUBS OR GALLOPS NOTED . ASSESSMENTS LEFT KNEE PAIN - M25.562 (PRIMARY) TREATMENT LEFT KNEE PAIN CONTINUE AMRIX CAPSULE EXTENDED RELEASE 24 HOUR, 15 MG, 2 CAPSULE, ORALLY, ONCE DAILY REFILL OXYCODONE HCL ER TABLET ER 12 HOUR ABUSE-DETERRENT, 15 MG, 1 TABLET, ORALLY, DAILY MDD1, 30 DAYS, 30 INCREASE HYDROMORPHONE HCL TABLET, 4 MG, 1 TAB, ORALLY, TWICE A DAY WHEN NECESSARY FOR SEVERE PAIN EPISODES MDD 2 #45 TABLETS SHOULD LAST 30 DAYS, 30 DAYS, 45, REFILLS 0, NOTES: DOSAGE CHANGE NOTES: DUE TO PATIENT'S SEVERE INCREASE IN PAIN DESPITE CURRENT CHRONIC PAIN MEDICATION I'M RECOMMENDING INCREASING HYDROMORPHONE TO 4 MG TABLET UP TO TWICE A DAY NEEDED FOR SEVERE PAIN EPISODES #45 TABLETS SHOULD LAST 30 DAYS. PATIENT WAS GIVEN HANDOUT IN REGARDS TO WALK IN [facility]. PATIENT IS AGREEABLE TO ATTEND. PROCEDURE CODES FA211 ESTABILISHED PATIENT [facility] CHARGE DISPOSITION & COMMUNICATION FOLLOW UP 2 MONTHS (REASON: FOLLOW-UP ON HYDROMORPHONE INCREASE/LEFT KNEE PAIN) ELECTRONICALLY SIGNED BY DEIDRE MERCEDES ON 12/13/2020 AT 04:34 PM EDT DISCLAIMER : THIS IS A VISIT SUMMARY EXTRACTED FROM THE [employer] CHART. IT IS NOT A COPY OF THE [employer] PROGRESS NOTE. KAYED
== END ==
LOC: M PAIN 11:00
PROVIDERS: ATTEND Nurse Practitioner Family
DX: M25.562 Pain in left knee (principal); E11.9 Type 2 diabetes mellitus without complications; J44.9 Chronic obstructive pulmonary disease, unspecified; E03.9 Hypothyroidism, unspecified; G25.81 Restless legs syndrome; G47.33 Obstructive sleep apnea (adult) (pediatric); G43.909 Migraine, unspecified, not intractable, without status migrainosus; Z87.891 Personal history of nicotine dependence; Z88.6 Allergy status to analgesic agent; Z88.8 Allergy status to other drugs, medicaments and biological substances; Z91.011 Allergy to milk products; Z91.040 Latex allergy status; E66.01 Morbid (severe) obesity due to excess calories; Z68.41 Body mass index [BMI] 40.0-44.9, adult; Z79.51 Long term (current) use of inhaled steroids; Z79.84 Long term (current) use of oral hypoglycemic drugs; Z79.891 Long term (current) use of opiate analgesic; Z79.899 Other long term (current) drug therapy

== ENCOUNTER 2021-01-03 18:08 | Emergency (ER) | payer BC, MEDICARE ==
[~2021-01-03] VITALS: Ht 160 cm; Wt 100.0 kg
--- NOTE | 2021-01-03 18:52 | REP ---
INDICATION: TRAUMA/FALL COMPARISON: None. TECHNIQUE: AP, lateral, bilateral oblique and sunrise views. FINDINGS: Osteopenia and early advanced tricompartmental osteoarthritic degenerative changes are appreciated. No obvious acute fracture or dislocation is appreciated. No definite effusion. IMPRESSION: Osteopenia and early advanced tricompartmental arthritic changes. No obvious acute fracture or dislocation. <Electronically signed by Juan Carlos Mcfarland > 01/03/21 0634
[2021-01-03] MEDS ORDERED: ANEC4CRE3 TOP (20:25)
[2021-01-03] MEDS ORDERED: LIDOCAINE 4% CREAM 5GM (LMX4) TOP ONE (20:25)
[2021-01-03 21:17] VITALS: BP 136/78
== END 2021-01-03 21:06 | disposition home or self-care (01) ==
LOC: M ED 18:08
DX: S89.91XA Unspecified injury of right lower leg, initial encounter (principal); W01.198A Fall on same level from slipping, tripping and stumbling with subsequent striking against other object, initial encounter; Y92.019 Unspecified place in single-family (private) house as the place of occurrence of the external cause; Y93.9 Activity, unspecified; Y99.9 Unspecified external cause status; M85.861 Other specified disorders of bone density and structure, right lower leg; M17.11 Unilateral primary osteoarthritis, right knee; E11.9 Type 2 diabetes mellitus without complications; I11.0 Hypertensive heart disease with heart failure; J44.9 Chronic obstructive pulmonary disease, unspecified; M35.00 Sjogren syndrome, unspecified; Z88.1 Allergy status to other antibiotic agents; Z88.6 Allergy status to analgesic agent; Z88.8 Allergy status to other drugs, medicaments and biological substances; Z91.040 Latex allergy status; Z79.899 Other long term (current) drug therapy

== ENCOUNTER → 2021-02-28 | Outpatient (CLI) | payer OTHER, BC ==
[~2021-02-28] MED LIST changes: +ANEC4CRE3 TOP
--- NOTE | 2021-03-06 00:22 | ECWPNPC ---
PATIENT NAME: SARAVANAN DAUGHERTY : 1950 GENDER: FEMALE VISIT DATE: 02/28/2021 DISCHARGE DATE: 02/28/21 1413 VISIT LOCKED DATE TIME: PHYSICIAN: JULIANA COOLEY PHYSICIAN PAGER NO: ACTIVE RESOURCE: JULIANA COOLEY REASON FOR APPOINTMENT 1. W/C FOLLOW-UP ON HYDROMORPHONE INCREASE/LEFT KNEE PAIN HISTORY OF PRESENT ILLNESS GENERAL: HERE FOR FOLLOW-UP AND MEDICATION MANAGEMENT FOR PERSISTENT KNEE PAIN. THIS IS A WORK-RELATED INJURY. PATIENT IS DOING MUCH BETTER TODAY. AT HER LAST VISIT WE INCREASED SHORT ACTING DILAUDID TO 4 MG TABLET. SHE IS ABLE TO TAKE THIS NEEDED FOR BREAKTHROUGH PAIN EPISODES. SHE IS GIVEN 45 TABLETS FOR 30-DAY SUPPLY. BRINGS IN HER MEDICATION WHICH IS APPROPRIATE FOR WHAT WAS DISPENSED. DENIES ADVERSE SIDE EFFECTS WITH HER MEDICATIONS. -. FALL RISK SCREENING: SCREENING : NO FALLS REPORTED IN THE LAST YEAR. PAIN SCREENING: PATIENT HAS A COMPLAINT OF ACUTE OR CHRONIC PAIN :YES LOCATION OF PAIN:KNEES LEFT KNEE INTENSITY OF PAIN (SCALE OF 1 TO 10):5 WHAT DOES YOUR PAIN FEEL LIKE:INTERMITTENT, THROBBING DURATION:ONLY WITH SPECIFIC ACTIVITIES PAIN IS INCREASED BY:ACTIVITIES, PROLONGED STANDING PAIN IS DECREASED BY:USE OF PAIN MEDICATIONS NURSING NOTE: -. PAIN CENTER INTAKE QUESTIONS: DO YOU HAVE A HISTORY OF MRSA? :NO DO YOU TAKE A BLOOD THINNERS? :NO DO YOU HAVE ANY BLEEDING DISORDERS? :NO ANY NEW NUMBNESS OR WEAKNESS IN YOUR LEGS OR ARMS? :NO LEFT LEG NUMBNESS AND WEAKNESS ANY PACEMAKER,DEFIBRILLATOR, OR DORSAL COLUMN STIMULATOR? :NO DO YOU HAVE ANY RASHES OR OPEN SORES? :NO ARE YOU ALLERGIC TO IV DYE? :NO ARE YOU DIABETIC? :YES ANY NEW PROBLEMS WITH YOUR MEDICATIONS? :NO HAVE YOU RECEIVED A VACCINE IN THE PAST 30 DAYS? :NO DO YOU PLAN TO RECEIVE A VACCINE IN THE NEXT 21 DAYS? :NO DO YOU NEED ANY PRESCRIPTION? :NO DO YOU TAKE ANY IMMUNOSUPPRESSIVE MEDICATIONS? :NO IS THERE A CHANCE YOU COULD BE ? :NO ARE YOU BREAST FEEDING? :NO CURRENT MEDICATIONS TAKING VOLTAREN 1 % GEL 1GRAM TRANSDERMAL EVERY 6 HOURS NEEDED TAKING METFORMIN HCL 1000 MG TABLET 1 TABLET WITH MEALS ORALLY TWICE A DAY TAKING ZOFRAN 4 MG TABLET 1 TABLET ORALLY ONCE A DAY TAKING COMPAZINE 25MG 1 TAB ORALLY Q 8HRS. FOR NAUSEA NEEDED TAKING PROBIOTIC - CAPSULE 1 CAP ORALLY DAILY TAKING ONETOUCH VERIO - STRIP 1 STRIP IN VITRO DAILY TAKING ONETOUCH VERIO - STRIP 1 LANCET IN VITRO DAILY TAKING BENADRYL ALLERGY 25 MG TABLET 2 TABLET NEEDED ORALLY EVERY 8 HRS TAKING ALBUTEROL SULFATE HFA 108 (90 BASE) MCG/ACT AEROSOL SOLUTION 1 PUFF INHALATION EVERY 4 HOURS NEEDED TAKING NEBULIZER/TUBING/MOUTHPIECE DIRECTED _ DX: J44.1, DAILY USE TAKING NYSTATIN [id number] UNIT/GM CREAM 1 APPLICATION EXTERNALLY UNDER BREAST AND GROIN TWICE A DAY TAKING MAGNESIUM 250 MG TABLET 1 TABLET WITH A MEAL ORALLY ONCE A DAY TAKING ARNICARE - GEL DIRECTED EXTERNALLY ALL OVER THE BODY TAKING AMLODIPINE BESYLATE 5 MG TABLET 1 TABLET ORALLY DAILY TAKING BISOPROLOL FUMARATE 5 MG TABLET 1 TABLET ORALLY ONCE A DAY TAKING CANDESARTAN CILEXETIL 4 MG TABLET 1/2 TABLET ORALLY ONCE A DAY TAKING EPLERENONE 25 MG TABLET 1 TABLET ORALLY ONCE A DAY TAKING POTASSIUM 99 MG TABLET 1 TABLET ORALLY ONCE A DAY; 2 TABS. C 2 TABS. OF HER TORSEMIDE TAKING EZETIMIBE 10 MG TABLET 1 TABLET ORALLY ONCE A DAY TAKING BREO ELLIPTA 200-25 MCG/INH AEROSOL POWDER BREATH ACTIVATED 1 PUFF INHALATION ONCE A DAY TAKING PANTOPRAZOLE SODIUM 40 MG TABLET DELAYED RELEASE 1 TABLET ORALLY ONCE A DAY TAKING TRAZODONE HCL 50 MG TABLET 1 TABLET AT BEDTIME NEEDED ORALLY ONCE A DAY TAKING HYDROXYZINE HCL 50 MG TABLET 2 TABLET NEEDED ORALLY 2 IN AM AND 2 IN PM TAKING IPRATROPIUM-ALBUTEROL 0.5-2.5 (3) MG/3ML SOLUTION 3 ML INHALATION BID PRN, NOTES: BID PRN TAKING VENTOLIN HFA 108 (90 BASE) MCG/ACT AEROSOL SOLUTION 2 PUFFS NEEDED INHALATION EVERY 4 HOURS NEEDED, NOTES: FREQUENCY CHANGE TAKING FERROUS GLUCONATE 324 (38 FE) MG TABLET 2 TABLET WITH WATER OR JUICE BETWEEN MEALS ORALLY EVERY OTHER DAY TAKING TESSALON PERLES 100 MG CAPSULE 1 CAPSULE NEEDED ORALLY THREE TIMES A DAY TAKING LEVOTHYROXINE SODIUM 25 MCG CAPSULE 1 CAPSULE ON AN EMPTY STOMACH IN THE MORNING ORALLY ONCE A DAY TAKING BACLOFEN 5 MG TABLET 1 TABLET NEEDED ORALLY BEFORE BEDTIME TAKING ROPINIROLE HCL 1 MG TABLET 2 TABLETS ORALLY BID TAKING TORSEMIDE 20 MG TABLET DIRECTED ORALLY BID TAKING LEXAPRO 5 MG TABLET 1 TABLET ORALLY ONCE A DAY TAKING HYDROMORPHONE HCL 4 MG TABLET 1 TAB ORALLY TWICE A DAY WHEN NECESSARY FOR SEVERE PAIN EPISODES MDD 2 #45 TABLETS SHOULD LAST 30 DAYS, NOTES: DOSAGE CHANGE TAKING OXYCODONE HCL ER 15 MG TABLET ER 12 HOUR ABUSE-DETERRENT 1 TABLET ORALLY DAILY MDD1 TAKING AMRIX 15 MG CAPSULE EXTENDED RELEASE 24 HOUR 2 CAPSULE ORALLY ONCE DAILY NOT-TAKING OXYCODONE HCL ER 15 MG TABLET ER 12 HOUR ABUSE-DETERRENT 1 TABLET ORALLY BEFORE BEDTIME MDD1, NOTES: FREQUENCY CHANGE MEDICATION LIST REVIEWED AND RECONCILED WITH THE PATIENT PAST MEDICAL HISTORY 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 JALLOH T2DM HYPOTHYROIDISM 10 CM RETROCARDIAC HIATAL HERNIA SJOGREN SYNDROME RESTLESS LEGS ARNEL MIGRAINES ACUTE KIDNEY FAILUTRE(DEHYDRATION) CHF ACUTE BRONCHITIS MORBID OBESITY HIATAL HERNIA ACUTE RESPIRATORY FAILURE WITH HYPOXEMIA HYPERTENSION 2ND COVID 12/05/2020 ALLERGIES NICKEL: SWELLING - ALLERGY STATINS (FOR ALLERGY USE ONLY): INCREASED LFTS, MUSCULAR PAIN - ALLERGY NSAIDS: ABDOMINAL PAIN, GI ULCER - ALLERGY LEVAQUIN: FACIAL SWELLING - ALLERGY LYRICA: ITCHING - ALLERGY LACTOSE: DIARRHEA, ABDOMINAL PAIN - ALLERGY LATEX (FOR ALLERGY USE ONLY): RASH - ALLERGY LACTULOSE: NAUSEA - ALLERGY SOCIAL HISTORY GENERAL: TOBACCO USE ARE YOU A:FORMER SMOKER HOW LONG HAS IT BEEN SINCE YOU LAST SMOKED?5-10 YEARS LATEX QUESTIONNAIRE LATEX ALLERGY : HAVE YOU EVER DEVELOPED ANY TYPE OF REACTION AFTER HANDLING LATEX PRODUCTS SUCH RUBBER GLOVES, CONDOMS, DIAPHRAGMS, BALLOONS, SOCKS, OR UNDERWEAR?YES SEE ALLERGIES, RASH, BURNING LATEX ALLERGY : HAVE YOU EVER DEVELOPED ANY TYPE OF REACTION DURING OR AFTER DENTAL APPOINTMENT, VAGINAL/RECTAL EXAMINATION, SURGICAL PROCEDURE, OR ANY OTHER EXPOSURE?NO LATEX RISK : HAVE YOU EVER HAD ANY DIFFICULTY BREATHING OR HIVES AFTER EATING OR HANDLING ANY FRUITS, OR VEGETABLES; SUCH KIWI, BANANAS, STONE FRUITS, OR CHESTNUTSNO LATEX RISK : DO YOU HAVE A PREVIOUS PERSONAL HISTORY OF MORE THAN NINE SURGERIES, SPINA BIFIDA, OR REPEATED CATHERIZATIONS? NO LATEX RISK : ARE YOU FREQUENTLY EXPOSED TO LATEX PRODUCTS IN YOUR OCCUPATION?NO DATE ASKED : 02/28/2021 ALCOHOL USE: NO. BMI CARE GOAL FOLLOW-UP ABOVE NORMAL BMI FOLLOW-UPLIFESTYLE EDUCATION REGARDING DIET ALCOHOL SCREENING DID YOU HAVE A DRINK CONTAINING ALCOHOL IN THE PAST YEAR?NO POINTS0 INTERPRETATIONNEGATIVE RECREATIONAL DRUG USE DRUG USE?NO CAFFEINE CAFFEINE USE?YES OCC HOT CHOCOLATE SEXUAL HX HAD SEX IN THE LAST 12 MONTHS (VAGINAL, ORAL, OR ANAL)?YES WITHMEN ONLY HIV / HEP-C SCREENING HIV TEST OFFERED TO PATIENT:YES DATE OFFERED:03/26/2017 TEST ACCEPTED:NO HEP-C TEST OFFERED TO PATIENT:YES DATE OFFERED:03/26/2017 REASON:PATIENT DECLINED ALREADY TESTED TEST ACCEPTED:NO REASON:PATIENT DECLINED SCIENTOLOGY [id number] NONE LANGUAGE LANGUAGES SPOKEN:BURUNDIAN LEARNING BARRIERS / SPECIAL NEEDS CHANGE FROM LAST VISIT?NO BARRIERS TO LEARNING?NO HEARING IMPAIRED?NO VISION IMPAIRED?YES :CORRECTIVE LENSES READING COGNITIVELY IMPAIRED?YES READINESS TO LEARN?YES LEARNING PREFERENCES?NO LEARNING CAPABILITIES PRESENT?YES EMOTIONAL BARRIERS?NO SPECIAL DEVICES?YES :CANE NEEDED AUTOMATIC LEHR OPERATOR NEEDED?NO RAY- DOMESTIC VIOLENCE DO YOU FEEL SAFE IN YOUR ENVIRONMENT?YES OCCUPATION: UNEMPLOYED. DIET: REGULAR. EXERCISE: NO REGULAR EXERCISE, NO REGULAR EXERCISE. MARITAL STATUS: . OTHERS AT HOME: SPOUSE. TODAY'S VISITNOTES PATIENT DESCRIBES PAIN :IT COMES AND GOES, THROBBING 12/01/19 FROM 0-10, WHAT LEVEL IS YOUR PAIN TODAY?6 PRECIPITATING FACTORS SITTING, GOING FROM SITTING TO STANDING POSITION ALLEVIATING FACTORS ELEVATING LEGS IMPACT ON FUNCTION YES - PFS REFERRAL NEEDED?NO CLERGY REFERRAL NEEDED?NO PUBLIC HEALTH REFERRAL NEEDED?NO WAS THE PROVIDER NOTIFIED OF ANY PERTINENT INFO?YES N/A HAS THE PATIENT BEEN EDUCATED REGARDING HIS/HER PLAN OF CARE?YES HAS THE PATIENT BEEN EDUCATED REGARDING PAIN, THE RISK FOR PAIN, THE IMPORTANCE OF EFFECTIVE PAIN MANAGEMENT, AND THE PAIN ASSESSMENT PROCESS?YES ADVANCE DIRECTIVE ADVANCE DIRECTIVE DISCUSSED WITH PATIENT:YES HEALTH CARE PROXY MARLA HERRERA ROMEO HERRERA REVIEW OF SYSTEMS CONSTITUTIONAL: ANY RECENT FEVER NO . CHILLS NO . WEIGHT CHANGE OF UNKNOWN REASONS NO . GASTROENTEROLOGY: NEW UNEXPLAINABLE CHANGES IN BOWEL CONTROL NO . CONSTIPATION NO . GENITOURINARY: ANY NEW CHANGE IN BLADDER CONTROL? NO . NEUROLOGY: NEW ONSET DIZZINESS OR NEUROLOGICAL CHANGES NOT MENTIONED NO . NEW NUMBNESS OR PAIN PATTERNS NOT MENTIONED AND PERTINENT TO TODAY'S VISIT NO . CARDIOLOGY: NEW CHEST PRESSURE NO . PATIENT DENIES NO . RESPIRATORY: UNEXPLAINABLE COUGH NO . NEW SHORTNESS OF BREATH NO . VITAL SIGNS WT 224 LBS, HT 62 IN, BMI 40.97 INDEX, BP 127/65 MM HG, HR 75 /MIN, RR 18 /MIN, TEMP 98.1 F, OXYGEN SAT % 91%, SAFE IN ENV? (Y/N) YES, NA INITIALS IL 13:48T.RADHA PUTNAM. EXAMINATION GENERAL EXAMINATION: GENERALAWAKE,ALERT. PSYCHWEEPY/DEPRESSED. LUNGS:LUNG KRISHNAN ARE CLEAR TO AUSCULTATION BILATERALLY. GOOD MOVEMENT OF AIR . HEART:S1, S2 IN A REGULAR RATE AND RHYTHM. NO SIGNIFICANT MURMURS, RUBS OR GALLOPS NOTED . ASSESSMENTS LEFT KNEE PAIN - M25.562 (PRIMARY) TREATMENT LEFT KNEE PAIN REFILL HYDROMORPHONE HCL TABLET, 4 MG, 1 TAB, ORALLY, TWICE A DAY WHEN NECESSARY FOR SEVERE PAIN EPISODES MDD 2 #45 TABLETS SHOULD LAST 30 DAYS, 30 DAYS, 45, REFILLS 0, NOTES: DOSAGE CHANGE REFILL OXYCODONE HCL ER TABLET ER 12 HOUR ABUSE-DETERRENT, 15 MG, 1 TABLET, ORALLY, DAILY MDD1, 30 DAYS, 30 CONTINUE AMRIX CAPSULE EXTENDED RELEASE 24 HOUR, 15 MG, 2 CAPSULE, ORALLY, ONCE DAILY PROCEDURES PN WORKMANS' COMP OPINION IN YOUR OPINION, WAS THE INCIDENT THAT THE PATIENT DESCRIBED THE COMPETENT MEDICAL CAUSE OF THIS INJURY/ILLNESS? YES ARE THE PATIENT'S COMPLAINTS CONSISTENT WITH HIS/HER HISTORY OF THE INJURY/ILLNESS? YES IS THE PATIENT'S HISTORY OF THE INJURY/ILLNESS CONSISTENT WITH YOUR OBJECTIVE FINDING? YES WHAT IS THE PERCENTAGE OF TEMPORARY IMPAIRMENT? MODERATE TO MARKED = 66.7% IS THE PATIENT WORKING? NO DOCTOR ON SITE: [facility]AY[facility] JENSEN MD PROCEDURE CODES FA211 ESTABILISHED PATIENT [facility] FACILITY CHARGE DISPOSITION & COMMUNICATION FOLLOW UP 3 MONTHS (REASON: MED MGMNT/LEFT KNEE/WORKMANS COMP/URINE TOX) ELECTRONICALLY SIGNED BY DEIDRE MERCEDES ON 03/05/2021 AT 03:28 PM EDT DISCLAIMER : THIS IS A VISIT SUMMARY EXTRACTED FROM THE [employer] CHART. IT IS NOT A COPY OF THE [employer] PROGRESS NOTE. ELOISA
== END ==
LOC: M PAIN 13:30
PROVIDERS: ATTEND Nurse Practitioner Family
DX: M25.562 Pain in left knee (principal); J44.9 Chronic obstructive pulmonary disease, unspecified; J45.909 Unspecified asthma, uncomplicated; E11.9 Type 2 diabetes mellitus without complications; E03.9 Hypothyroidism, unspecified; K44.9 Diaphragmatic hernia without obstruction or gangrene; M35.00 Sjogren syndrome, unspecified; G25.81 Restless legs syndrome; G47.33 Obstructive sleep apnea (adult) (pediatric); G43.909 Migraine, unspecified, not intractable, without status migrainosus; I50.9 Heart failure, unspecified; E66.01 Morbid (severe) obesity due to excess calories; E73.9 Lactose intolerance, unspecified; I11.0 Hypertensive heart disease with heart failure; Z87.891 Personal history of nicotine dependence; Z79.84 Long term (current) use of oral hypoglycemic drugs; Z79.891 Long term (current) use of opiate analgesic; Z79.899 Other long term (current) drug therapy; Z88.6 Allergy status to analgesic agent; Z88.8 Allergy status to other drugs, medicaments and biological substances; Z91.040 Latex allergy status; Z88.1 Allergy status to other antibiotic agents; Z91.048 Other nonmedicinal substance allergy status; Z68.41 Body mass index [BMI] 40.0-44.9, adult

== ENCOUNTER 2021-04-27 16:50 | Emergency (ER) | payer BC, MEDICARE ==
[~2021-04-27] VITALS: Ht 160 cm; Wt 95.5 kg
[2021-04-27 17:33] LABS: BASO % 0.4 % (0.0-1.0); EOS # 0.2 10^3/uL (0.0-0.5); EOS % 1.5 % (0.0-3.0); HEMATOCRIT 41.8 % (36.0-47.0); HEMOGLOBIN 13.4 g/dl (12.0-15.5); LYMPH # 2.4 10^3/uL (1.5-5.0); LYMPH % 22.3 % (24.0-44.0); MEAN CORPUSCULAR HEMOGLOBIN 27.5 pg (27.0-33.0); MEAN CORPUSCULAR HGB CONC 32.1 g/dl (32.0-36.5); MEAN CORPUSCULAR VOLUME 85.8 fl (80.0-96.0); MONO # 0.9 10^3/uL (0.0-0.8); MONO % 8.3 % (2.0-8.0); NEUTROPHILS # 7.3 10^3/uL (1.5-8.5); NEUTROPHILS % 67.2 % (36.0-66.0); PLATELET COUNT, AUTOMATED 293 10^3/uL (150-450); RED BLOOD COUNT 4.87 10^6/uL (4.00-5.40); WHITE BLOOD COUNT 10.8 10^3/uL (4.0-10.0)
[2021-04-27 18:02] LABS: ALT/SGPT 20 U/L (12-78); BILIRUBIN,DIRECT < 0.1 MG/DL (0.0-0.2); BILIRUBIN,TOTAL 0.3 MG/DL (0.2-1.0); BLOOD UREA NITROGEN 24 MG/DL (7-18); CALCIUM LEVEL 8.9 MG/DL (8.8-10.2); CARBON DIOXIDE LEVEL 33 MEQ/L (21-32); CHLORIDE LEVEL 98 MEQ/L (98-107); CREATININE FOR GFR 2.03 MG/DL (0.55-1.30); GLOMERULAR FILTRATION RATE 25.9 (>45); GLUCOSE, FASTING 163 MG/DL (70-100); LIPASE 85 U/L (73-393); POTASSIUM SERUM 4.9 MEQ/L (3.5-5.1); SODIUM LEVEL 137 MEQ/L (136-145); TOTAL PROTEIN 7.3 GM/DL (6.4-8.2)
[2021-04-27 18:33] LABS: APPEARANCE, URINE HAZY (CLEAR); BILIRUBIN, URINE AUTO NEGATIVE (NEGATIVE); BLOOD, URINE BLOOD NEGATIVE (NEGATIVE); COLOR, URINE YELLOW (YELLOW); GLUCOSE, URINE (UA) AUTO NEGATIVE (NEGATIVE); KETONE, URINE AUTO NEGATIVE (NEGATIVE); LEUKOCYTE ESTERASE, URINE AUTO TRACE (NEGATIVE); NITRITE, URINE AUTO NEGATIVE (NEGATIVE); PROTEIN, URINE AUTO NEGATIVE (NEGATIVE); SPECIFIC GRAVITY URINE AUTO 1.018 (1.002-1.035); UROBILINOGEN, URINE AUTO 0.2 mg/dL (0.0-2.0)
[2021-04-27 18:37] LABS: BACTERIA, URINE AUTO NEGATIVE (NEGATIVE); MUCUS, URINE SMALL (NEGATIVE); RBC, URINE AUTO 1 /HPF (0-3); SQUAMOUS EPITHELIAL CELL UR AU 2 /HPF (0-6); TRANSITIONAL EPITHELIAL AUTO 1 /HPF; WBC, URINE AUTO 5 /HPF (0-3)
[2021-04-27] MEDS ORDERED: NS 1,000 ML IV ONE (18:55)
[2021-04-27] MEDS ORDERED: DOCUSATE SODIUM 100MG CAPSULE PO ONE (20:15)
[2021-04-27] MEDS ORDERED: MIRALAX *UNIT DOSE* 17GM PACKET PO ONE (20:15)
[2021-04-27] MEDS ORDERED: COLA100C5 PO (20:23)
[2021-04-27] MEDS ORDERED: MIRA3350 PO (20:23)
[2021-04-27 20:53] VITALS: BP 104/56
--- NOTE | 2021-04-30 18:10 | REPVR ---
PROCEDURE INFORMATION: Exam: CT Abdomen And Pelvis Without Contrast Exam date and time: 04/27/2021 5:41 PM Age: 70 years old Clinical indication: Abdominal pain; Additional info: Left abd pain/flank pain TECHNIQUE: Imaging protocol: Computed tomography of the abdomen and pelvis without contrast. Radiation optimization: All CT scans at this facility use at least one of these dose optimization techniques: automated exposure control; mA and/or kV adjustment per patient size (includes targeted exams where dose is matched to clinical indication); or iterative reconstruction. COMPARISON: CT ANGIO CHEST 08/11/2019 7:16 PM FINDINGS: Lungs: Bibasilar atelectasis. Mediastinal space: Redemonstration of a large hiatal hernia. Liver: Normal. No mass. Gallbladder and bile ducts: Normal. No calcified stones. No ductal dilation. Pancreas: Normal. No ductal dilation. Spleen: Normal. No splenomegaly. Adrenal glands: Normal. No mass. Kidneys and ureters: Normal. No hydronephrosis. Stomach and bowel: There is increased feces throughout the colon consistent with constipation. Moderate diverticulosis coli demonstrated most pronounced in the distal colon with a suggestion of minimal pericolonic inflammatory changes which may be chronic in nature although the possibility of mild acute or subacute diverticulitis not excluded as previously described. Appendix: There has been an appendectomy. Intraperitoneal space: Unremarkable. No free air. No significant fluid collection. Vasculature: The aortoiliac vessels demonstrate mild atherosclerotic calcification. Lymph nodes: Unremarkable. No enlarged lymph nodes. Urinary bladder: Unremarkable as visualized. Reproductive: Unremarkable as visualized. Bones/joints: The spine demonstrates moderate degenerative changes. Mild central spinal stenosis L1-L2, L2-L3, severe central spinal stenosis L3-L4 and L4-L5. Soft tissues: Large left inguinal hernia without incarceration. Other findings: Levoscoliosis. IMPRESSION: 1. There is increased feces throughout the colon consistent with constipation. 2. Moderate diverticulosis coli demonstrated most pronounced in the distal colon with a suggestion of minimal pericolonic inflammatory changes which may be chronic in nature although the possibility of mild acute or subacute diverticulitis not excluded as previously described. 3. No significant interval change. Electronically signed by: Dino Montero On 04/30/2021 18:10:01 PM
== END 2021-04-27 20:49 | disposition home or self-care (01) ==
LOC: M ED 16:50
DX: K59.00 Constipation, unspecified (principal); J44.9 Chronic obstructive pulmonary disease, unspecified; E11.9 Type 2 diabetes mellitus without complications; Z88.6 Allergy status to analgesic agent; Z88.8 Allergy status to other drugs, medicaments and biological substances; Z91.040 Latex allergy status; Z91.048 Other nonmedicinal substance allergy status

== ENCOUNTER → 2021-08-08 | Outpatient (CLI) | payer MEDICARE, BC ==
[~2021-08-08] MED LIST changes: +COLA100C5 PO; -CYMB60CA3 PO; +CYMB60CA4 PO; +MIRA3350 PO
== END ==
LOC: M PAIN 14:00
PROVIDERS: ATTEND Nurse Practitioner Family
DX: M25.562 Pain in left knee (principal); G89.29 Other chronic pain; E11.9 Type 2 diabetes mellitus without complications; J44.9 Chronic obstructive pulmonary disease, unspecified; E03.9 Hypothyroidism, unspecified; G25.81 Restless legs syndrome; G47.33 Obstructive sleep apnea (adult) (pediatric); G43.909 Migraine, unspecified, not intractable, without status migrainosus; Z87.891 Personal history of nicotine dependence; Z88.6 Allergy status to analgesic agent; Z88.8 Allergy status to other drugs, medicaments and biological substances; Z91.011 Allergy to milk products; Z91.040 Latex allergy status; Z79.51 Long term (current) use of inhaled steroids; Z79.891 Long term (current) use of opiate analgesic; Z79.899 Other long term (current) drug therapy

== ENCOUNTER → 2021-12-12 | Outpatient (CLI) | payer OTHER, BC, MEDICARE ==
[~2021-12-12] MED LIST changes: -CAND4TAB PO; +CAND4TAB7 PO; -CEFD1CAP8 PO; +CEFD300C41 PO
== END ==
LOC: M PAIN 14:00
PROVIDERS: ATTEND Nurse Practitioner Family
DX: M25.562 Pain in left knee (principal); G89.29 Other chronic pain; E11.9 Type 2 diabetes mellitus without complications; J44.9 Chronic obstructive pulmonary disease, unspecified; E03.9 Hypothyroidism, unspecified; G25.81 Restless legs syndrome; G47.33 Obstructive sleep apnea (adult) (pediatric); G43.909 Migraine, unspecified, not intractable, without status migrainosus; Z87.891 Personal history of nicotine dependence; Z88.6 Allergy status to analgesic agent; Z88.8 Allergy status to other drugs, medicaments and biological substances; Z91.011 Allergy to milk products; Z79.51 Long term (current) use of inhaled steroids; Z79.891 Long term (current) use of opiate analgesic; Z79.899 Other long term (current) drug therapy

== ENCOUNTER → 2022-03-14 | Outpatient (CLI) | payer OTHER, BC, MEDICARE | LOC: M PAIN 10:00 | PROVIDERS: ATTEND Nurse Practitioner Family | DX: M25.562 Pain in left knee (principal); G89.29 Other chronic pain; E11.9 Type 2 diabetes mellitus without complications; J44.9 Chronic obstructive pulmonary disease, unspecified; E03.9 Hypothyroidism, unspecified; G25.81 Restless legs syndrome; G47.33 Obstructive sleep apnea (adult) (pediatric); G43.909 Migraine, unspecified, not intractable, without status migrainosus; I10 Essential (primary) hypertension; Z87.891 Personal history of nicotine dependence; Z88.6 Allergy status to analgesic agent; Z88.8 Allergy status to other drugs, medicaments and biological substances; Z91.011 Allergy to milk products; E66.01 Morbid (severe) obesity due to excess calories; Z68.41 Body mass index [BMI] 40.0-44.9, adult; Z79.51 Long term (current) use of inhaled steroids; Z79.891 Long term (current) use of opiate analgesic; Z79.899 Other long term (current) drug therapy ==

== ENCOUNTER → 2022-04-03 | Outpatient (CLI) | payer OTHER, BC, MEDICARE | LOC: M PAIN 15:30 | PROVIDERS: ATTEND Anesthesiology | DX: M25.562 Pain in left knee (principal); M79.2 Neuralgia and neuritis, unspecified; E11.9 Type 2 diabetes mellitus without complications; J44.9 Chronic obstructive pulmonary disease, unspecified; E03.9 Hypothyroidism, unspecified; G25.81 Restless legs syndrome; G47.33 Obstructive sleep apnea (adult) (pediatric); G43.909 Migraine, unspecified, not intractable, without status migrainosus; Z87.891 Personal history of nicotine dependence; Z88.6 Allergy status to analgesic agent; Z88.8 Allergy status to other drugs, medicaments and biological substances; Z91.011 Allergy to milk products; Z91.018 Allergy to other foods; Z91.040 Latex allergy status; Z79.51 Long term (current) use of inhaled steroids; Z79.890 Hormone replacement therapy; Z79.899 Other long term (current) drug therapy ==

== ENCOUNTER → 2022-06-09 | Outpatient (CLI) | payer OTHER, BC, MEDICARE | LOC: M PAIN 11:15 | PROVIDERS: ATTEND Anesthesiology | DX: M25.562 Pain in left knee (principal); G89.29 Other chronic pain; E11.9 Type 2 diabetes mellitus without complications; J44.9 Chronic obstructive pulmonary disease, unspecified; E03.9 Hypothyroidism, unspecified; G25.81 Restless legs syndrome; G47.33 Obstructive sleep apnea (adult) (pediatric); G43.909 Migraine, unspecified, not intractable, without status migrainosus; Z87.891 Personal history of nicotine dependence; Z88.6 Allergy status to analgesic agent; Z88.8 Allergy status to other drugs, medicaments and biological substances; Z91.011 Allergy to milk products; Z91.040 Latex allergy status; Z79.51 Long term (current) use of inhaled steroids; Z79.890 Hormone replacement therapy; Z79.899 Other long term (current) drug therapy ==

== ENCOUNTER → 2022-06-19 | Outpatient (CLI) | payer OTHER, BC, MEDICARE | LOC: M PAIN 16:30 | PROVIDERS: ATTEND Anesthesiology | DX: M25.562 Pain in left knee (principal); G89.29 Other chronic pain; J44.9 Chronic obstructive pulmonary disease, unspecified; E03.9 Hypothyroidism, unspecified; G25.81 Restless legs syndrome; G47.33 Obstructive sleep apnea (adult) (pediatric); G43.909 Migraine, unspecified, not intractable, without status migrainosus; I10 Essential (primary) hypertension; Z98.890 Other specified postprocedural states; Z87.891 Personal history of nicotine dependence; Z88.6 Allergy status to analgesic agent; Z88.8 Allergy status to other drugs, medicaments and biological substances; Z91.011 Allergy to milk products; Z79.51 Long term (current) use of inhaled steroids; Z79.890 Hormone replacement therapy; Z79.899 Other long term (current) drug therapy ==

== ENCOUNTER → 2022-07-23 | Outpatient (CLI) | payer BC, MEDICARE, OTHER ==
[~2022-07-23] MED LIST changes: +BUSP10TA79 PO; +ESCI5SOL3 PO; +EZET10TA21 PO; +FAMO1TAB11 PO; +OXYC-517 PO; +PANT40TA29 PO; +PRAM1.5T2 PO; +SEMA7TAB2 PO; +TORS20TA2 PO
== END ==
LOC: M LABSMTC 11:36
PROVIDERS: ATTEND Anesthesiology
DX: Z01.812 Encounter for preprocedural laboratory examination (principal); Z11.52 Encounter for screening for COVID-19

== ENCOUNTER → 2022-07-24 | Outpatient (CLI) | payer OTHER, BC, MEDICARE | LOC: M PAIN 15:45 | PROVIDERS: ATTEND Anesthesiology | DX: M25.562 Pain in left knee (principal); G89.29 Other chronic pain; M79.2 Neuralgia and neuritis, unspecified; E11.9 Type 2 diabetes mellitus without complications; J44.9 Chronic obstructive pulmonary disease, unspecified; E03.9 Hypothyroidism, unspecified; G25.81 Restless legs syndrome; G47.33 Obstructive sleep apnea (adult) (pediatric); G43.909 Migraine, unspecified, not intractable, without status migrainosus; I10 Essential (primary) hypertension; Z87.891 Personal history of nicotine dependence; Z88.6 Allergy status to analgesic agent; Z88.8 Allergy status to other drugs, medicaments and biological substances; Z91.011 Allergy to milk products; Z91.040 Latex allergy status; E66.01 Morbid (severe) obesity due to excess calories; Z68.41 Body mass index [BMI] 40.0-44.9, adult; Z79.51 Long term (current) use of inhaled steroids; Z79.890 Hormone replacement therapy; Z79.899 Other long term (current) drug therapy ==

== ENCOUNTER → 2022-09-19 | Outpatient (CLI) | payer OTHER, BC, MEDICARE ==
[~2022-09-19] MED LIST changes: +BACI1CAP4 PO; +EQ S0.65; +MAGN250T7 PO; +POTA99CA2 PO; +[UNRECOGNIZED DRUG - CODE] PO
== END ==
LOC: M PAIN 09:15
PROVIDERS: ATTEND Anesthesiology
DX: M25.562 Pain in left knee (principal); G89.29 Other chronic pain; M79.2 Neuralgia and neuritis, unspecified; E11.9 Type 2 diabetes mellitus without complications; J44.9 Chronic obstructive pulmonary disease, unspecified; E03.9 Hypothyroidism, unspecified; G25.81 Restless legs syndrome; G47.33 Obstructive sleep apnea (adult) (pediatric); G43.909 Migraine, unspecified, not intractable, without status migrainosus; I10 Essential (primary) hypertension; Z96.652 Presence of left artificial knee joint; Z87.891 Personal history of nicotine dependence; Z88.6 Allergy status to analgesic agent; Z88.8 Allergy status to other drugs, medicaments and biological substances; Z91.011 Allergy to milk products; Z91.040 Latex allergy status; E66.01 Morbid (severe) obesity due to excess calories; Z68.41 Body mass index [BMI] 40.0-44.9, adult; Z79.51 Long term (current) use of inhaled steroids; Z79.84 Long term (current) use of oral hypoglycemic drugs; Z79.890 Hormone replacement therapy; Z79.899 Other long term (current) drug therapy

== ENCOUNTER → 2022-10-01 | Outpatient (CLI) | payer OTHER, BC, MEDICARE | LOC: M LABSMTC 10:27 | PROVIDERS: ATTEND Anesthesiology | DX: Z01.812 Encounter for preprocedural laboratory examination (principal); Z11.52 Encounter for screening for COVID-19 ==

== ENCOUNTER 2022-10-06 12:33 | Day surgery (SDC) | payer OTHER, BC, MEDICARE ==
[~2022-10-06] VITALS: Ht 152.4 cm; Wt 103.0 kg
[2022-10-06] MEDS ORDERED: LR 1,000 ML IV SCH (12:55)
[2022-10-06] MEDS ORDERED: LIDOCAINE 2% 100MG/5ML SDV (FOR ANES.) As Ordered ONE (13:41)
[2022-10-06] MEDS ORDERED: propofoL 200 MG/20 ML VIAL As Ordered ONE ×2 (13:41→14:08)
[2022-10-06] MEDS: ISOVUE-300 61% 100ML VIAL As Ordered ONE (14:10)
[2022-10-06] MEDS: BUPIVACAINE HCL 0.25% 30ML VIAL As Ordered ONE (14:15)
[2022-10-06] MEDS: LIDOCAINE 1% MDV 20ML VIAL As Ordered ONE (14:15)
[2022-10-06 15:00] VITALS: BP 132/66
== END 2022-10-06 15:08 | disposition home or self-care (01) ==
LOC: M SDC 12:33
PROVIDERS: ATTEND Anesthesiology
DX: M25.562 Pain in left knee (principal); I12.9 Hypertensive chronic kidney disease with stage 1 through stage 4 chronic kidney disease, or unspecified chronic kidney disease; N18.30 Chronic kidney disease, stage 3 unspecified; I50.9 Heart failure, unspecified; E78.5 Hyperlipidemia, unspecified; F41.9 Anxiety disorder, unspecified; F32.A Depression, unspecified; E11.9 Type 2 diabetes mellitus without complications; E03.9 Hypothyroidism, unspecified; J44.9 Chronic obstructive pulmonary disease, unspecified; K57.92 Diverticulitis of intestine, part unspecified, without perforation or abscess without bleeding; K21.9 Gastro-esophageal reflux disease without esophagitis; K44.9 Diaphragmatic hernia without obstruction or gangrene; Z79.899 Other long term (current) drug therapy
CPT/HCPCS: 64454; 76000; Q9967; S0020

== ENCOUNTER → 2022-10-09 | Outpatient (CLI) | payer OTHER, BC, MEDICARE | LOC: M PAIN 10:30 | PROVIDERS: ATTEND Anesthesiology | DX: M25.562 Pain in left knee (principal); M79.2 Neuralgia and neuritis, unspecified; J44.9 Chronic obstructive pulmonary disease, unspecified; E03.9 Hypothyroidism, unspecified; G25.81 Restless legs syndrome; G47.33 Obstructive sleep apnea (adult) (pediatric); G43.909 Migraine, unspecified, not intractable, without status migrainosus; I10 Essential (primary) hypertension; Z96.652 Presence of left artificial knee joint; Z87.891 Personal history of nicotine dependence; Z88.6 Allergy status to analgesic agent; Z88.8 Allergy status to other drugs, medicaments and biological substances; Z91.011 Allergy to milk products; Z91.040 Latex allergy status; Z79.51 Long term (current) use of inhaled steroids; Z79.890 Hormone replacement therapy; Z79.899 Other long term (current) drug therapy ==

== ENCOUNTER → 2023-03-08 | Outpatient (CLI) | payer BC, MEDICARE ==
[~2023-03-08] MED LIST changes: -ROPI0.253 PO; -ROPI1TAB3; -ROPI1TAB3 PO; +ROPI1TAB73; +ROPI1TAB73 PO; +ROPI5TAB19 PO
[2023-03-08 10:01] LABS: APPEARANCE, URINE CLEAR (CLEAR); BACTERIA, URINE AUTO 1+ (NEGATIVE); BILIRUBIN, URINE AUTO NEGATIVE (NEGATIVE); BLOOD, URINE BLOOD NEGATIVE (NEGATIVE); COLOR, URINE STRAW (YELLOW); GLUCOSE, URINE (UA) AUTO NEGATIVE (NEGATIVE); KETONE, URINE AUTO NEGATIVE (NEGATIVE); LEUKOCYTE ESTERASE, URINE AUTO NEGATIVE (NEGATIVE); MUCUS, URINE SMALL (NEGATIVE); NITRITE, URINE AUTO NEGATIVE (NEGATIVE); PROTEIN, URINE AUTO NEGATIVE (NEGATIVE); RBC, URINE AUTO 0 /HPF (0-3); SPECIFIC GRAVITY URINE AUTO 1.008 (1.002-1.035); SQUAMOUS EPITHELIAL CELL UR AU 0 /HPF (0-6); UROBILINOGEN, URINE AUTO 0.2 mg/dL (0.0-2.0); WBC, URINE AUTO 0 /HPF (0-3)
[2023-03-08 10:19] LABS: HEMOGLOBIN A1c 8.1 % (4.0-6.0)
[2023-03-08 10:22] LABS: CREATININE, URINE 25.3 MG/DL; MALB URINE SIEMENS < 3.0 MG/L; MAU/CREAT RATIO 11.8 MCG/MG (0.0-30.0)
[2023-03-08 10:35] LABS: CALCIUM LEVEL 8.4 MG/DL (8.3-10.6); CHOLESTEROL RISK RATIO 2.78 (<5); CREATININE FOR GFR 1.83 MG/DL (0.55-1.30); FREE T4 1.08 NG/DL (0.89-1.76); GLOMERULAR FILTRATION RATE 29.1 (>39); HDL CHOLESTEROL 61.1 MG/DL (>40); LDL CHOLESTEROL 60.1 MG/DL (<100); NON-HDL-C 108.9 MG/DL; POTASSIUM SERUM 4.8 MMOL/L (3.5-5.1); THYROID STIMULATING HORMONE 1.013 uIU/ML (0.55-4.78)
== END ==
LOC: M LAB 09:32
PROVIDERS: ATTEND Internal Medicine
DX: E11.9 Type 2 diabetes mellitus without complications (principal); E03.9 Hypothyroidism, unspecified; E78.2 Mixed hyperlipidemia

== ENCOUNTER → 2023-03-18 | Outpatient (CLI) | payer MEDICARE ==
[~2023-03-18] MED LIST changes: +CLON-952 PO; -KLON2TAB PO
[2023-03-18 17:29] LABS: BASO # 0.1 10^3/uL (0.0-0.2); BASO % 0.3 % (0.0-1.0); EOS % 0.1 % (0.0-3.0); HEMATOCRIT 46.1 % (36.0-47.0); LYMPH # 2.2 10^3/uL (1.5-5.0); LYMPH % 11.7 % (24.0-44.0); MEAN CORPUSCULAR HEMOGLOBIN 27.5 pg (27.0-33.0); MEAN CORPUSCULAR HGB CONC 32.5 g/dl (32.0-36.5); MEAN CORPUSCULAR VOLUME 84.4 fl (80.0-96.0); MONO # 1.2 10^3/uL (0.0-0.8); MONO % 6.4 % (2.0-8.0); NEUTROPHILS # 15.1 10^3/uL (1.5-8.5); NEUTROPHILS % 79.9 % (36.0-66.0); PLATELET COUNT, AUTOMATED 292 10^3/uL (150-450); RED BLOOD COUNT 5.46 10^6/uL (4.00-5.40); WHITE BLOOD COUNT 18.9 10^3/uL (4.0-10.0)
[2023-03-18 17:33] LABS: THYROID STIMULATING HORMONE 0.303 uIU/ML (0.55-4.78)
[2023-03-18 18:06] LABS: HEPATITIS B CORE ANTIBODY IGM NEGATIVE (NEGATIVE); HEPATITIS C VIRUS ABY INDEX 0.12 INDEX (<0.8)
[2023-03-18 18:14] LABS: ALBUMIN 3.5 G/DL (3.2-5.2); ALKALINE PHOSPHATASE 161 U/L (46-116); ALT/SGPT 19 U/L (7.0-40); AST/SGOT < 8 U/L (<34); BILIRUBIN,TOTAL 0.4 MG/DL (0.3-1.2); BLOOD UREA NITROGEN 51 MG/DL (9-23); CALCIUM LEVEL 9.5 MG/DL (8.3-10.6); CARBON DIOXIDE LEVEL 30 MMOL/L (20-31); CHLORIDE LEVEL 94 MMOL/L (98-107); CREATININE FOR GFR 1.71 MG/DL (0.55-1.30); GLOMERULAR FILTRATION RATE 31.4 (>39); GLUCOSE, FASTING 423 MG/DL (74-106); POTASSIUM SERUM 4.8 MMOL/L (3.5-5.1); SODIUM LEVEL 131 MMOL/L (136-145); TOTAL PROTEIN 7.2 G/DL (5.7-8.2)
== END ==
LOC: M LAB 16:07
PROVIDERS: ATTEND Nurse Practitioner Family
DX: R21 Rash and other nonspecific skin eruption (principal); Z79.899 Other long term (current) drug therapy

== ENCOUNTER → 2024-05-19 | Outpatient (REF) | payer BC, MEDICARE ==
[~2024-05-19] MED LIST changes: +CEFD1CAP9 PO; -CEFD300C41 PO; -EPLE25TA PO; +EPLE25TA2 PO; -ESOM0.1C PO; +ESOM20CA2 PO; +ONDA-282 PO; -ONDA4TAB6 PO
== END ==
LOC: M SFHCDERM 17:32
PROVIDERS: ATTEND Nurse Practitioner Family
DX: L85.8 Other specified epidermal thickening (principal)